=== PATIENT | female | born 1995 | race Caucasian/White ===

== ENCOUNTER 2018-04-09 12:43 | Emergency (ER) | payer MEDICAID, SELFPAY ==
[2018-04-09 12:52] VITALS: BP 132/81; PULSE 84; RESP 24; TEMP 37; O2SAT 100
--- NOTE | 2018-04-09 13:23 | ED.GENADUL_ITS ---
Disposition Clinical Impression: Suicidal ideations, Anxiety, Depression Disposition: [facility] Condition: Stable Medical Decision Making - Medical Decision Making 22-year-old female who presents with anxiety, depression and suicidal ideation. States she plans to take pills or cut her wrist. Previous suicide attempt in August 2017 but did not seek treatment. Patient states she was not followed by behavioral health. Case was discussed with care management who states that patient is followed by behavioral health and saw them yesterday and has a follow -up appointment next week. Patient is very tearful and appears anxious. Vitals within normal limits. No acute findings on exam. Will check screening labs, urinalysis, UDS and urine test. Will place order for sitter. Patient is voluntary. 1515 -- Pt is medically cleared. Mental health is here to see patient. 1600 --discussed with mental health and agree patient is appropriate for inpatient. Will attempt to call for placement. 1700 --discussed with mental health and information has been sent to [facility] and [facility] but there are no beds available tonight. Plan is for admission here overnight to resume attempt at placement tomorrow. 1755 --discussed with mental health - [facility] has a bed available. Will transfer patient there are tonight by [facility]. Patient is medically cleared, requiring no meds and no indication for ambulance transfer at this time. Accepting physician Dr. Chappell. History of Present Illness - General Chief complaint: PsychEval Stated complaint: PANIC ATTACK Time Seen by Provider: 04/09/18 12:46 Source: patient Mode of arrival: ambulatory Limitations: no limitations - History of Present Illness Initial comments: Patient is a 22-year-old female with a history of anxiety and depression who presents for panic attacks almost every day for the last few weeks and suicidal ideation for the past few days. Patient states she would take pills or slit her wrist to kill herself. Patient states she has not been seen by behavioral health for this. Patient states she saw her primary care doctor at [facility] and was prescribed BuSpar 2 weeks ago but she states is not working. Patient denies any alcohol or drug use. Patient denies any visual or auditory hallucinations. Patient admits to a previous suicide attempt in August 2017 in which she cut herself. She states she did not seek treatment at that time. - Related Data Albuterol Sulfate [Proair Hfa] 2 puff IH Q4H PRN #1 inhaler 08/29/16 Ondansetron [Zofran] 8 mg PO TID #6 tab-cap 07/03/16 SUMAtriptan [Imitrex] 1 tab PO ONCE #4 tab 04/26/17 Albuterol/Ipratropium [Duoneb Updraft] 3 ml IH Q3H PRN #1 box 08/09/17 Fluticasone Propionate [Flovent 220MCG] 2 puff IH BID #1 inh 08/12/17 Buspirone HCl 5 mg PO BID 30 Days #60 tab-cap 03/28/18 Hydroxyzine HCl 25 mg PO TID 14 Days #42 tab-cap 04/04/18 Allergies Allergy/AdvReac Type Severity Reaction Status Date / Time citalopram AdvReac insomnia Unverified 04/04/18 15:29 ultrasound gel Allergy Intermediate Itching Uncoded 03/30/18 22:23 Review of Systems Constitutional: denies: chills, fever Eyes: denies: eye pain ENT: denies: ear pain, dental pain Respiratory: denies: cough, shortness of breath Cardiovascular: denies: chest pain, dyspnea on exertion Gastrointestinal: denies: abdominal pain, nausea, vomiting Genitourinary: denies: urgency, dysuria, frequency Musculoskeletal: denies: back pain Skin: denies: rash, lesions Neurological: denies: headache, weakness, numbness Psychiatric: anxiety, depression, suicidal thoughts. denies: auditory hallucinations, visual hallucinations, homicidal thoughts Past Medical History - Past Medical History Medical history: asthma migraines Surgical history: no surgical history Psychiatric history: depression - Social History Smoking status: never smoker Alcohol use: none Drug use: none General Exam - General Limitations: no limitations General appearance: alert, in no apparent distress - Eye Eye exam: Present: PERRL, EOMI - ENT ENT exam: Present: normal orophraynx, mucous membranes moist - Respiratory Respiratory exam: Present: normal lung sounds bilaterally. Absent: respiratory distress, wheezes, rales, rhonchi, stridor - Cardiovascular Cardiovascular Exam: Present: regular rate, normal rhythm. Absent: bradycardia , tachycardia - GI/Abdominal GI/Abdominal exam: Present: soft, normal bowel sounds. Absent: distended, tenderness, guarding, rebound, rigid - Neurological Exam Neurological exam: Present: alert, oriented X3 - Psychiatric Psychiatric exam: Present: normal affect - Skin Skin exam: Present: warm, dry, intact Course Vital Signs - 24 hr 04/09/18 12:52 Temperature 98.6 F Pulse 84 Respiratory 24 Rate Blood Pressure 132/81 Pulse Oximetry 100
[2018-04-09 13:48] LABS: Absolute Basophil Count 0.06 k/cumm (0.0-0.2); Absolute Eosinophil Count 0.45 k/cumm (0.0-0.7); Absolute Lymphocyte Count 2.11 k/cumm (1.2-3.4); Absolute Monocyte Count 0.39 k/cumm (0.11-0.7); Absolute Neutrophil Count 3.39 k/cumm (1.2-6.7); Basophils % 0.9; HGB 13.4 g/dL (12.0-15.5); Mean Corp. HGB Concentration 33.5 g/dL (32.0-36.0); Mean Corpuscular Volume 86.6 fL (80-95); Monocytes % 6.1; Platelet Count 273 x1000/uL (130-400); RBC 4.62 m/cumm (4.00-5.20)
[2018-04-09 13:59] LABS: Anion Gap 11.2 mmol/L (3-11); BUN 9 mg/dL (7-18); CO2 24.8 mmol/L (21.0-32.0); CREATININE 0.71 mg/dL (0.55-1.02); Chloride 103 mmol/L (98-107); Glucose 86 mg/dL (70-100); Potassium 3.4 mmol/L (3.5-5.1); Sodium 139 mmol/L (136-145)
[2018-04-09 14:03] LABS: *AMPHETAMINES SCREEN URINE Negative (Negative); *BARBITURATES SCREEN URINE Negative (Negative); *BENZODIAZEPINES SCREEN URINE Negative (Negative); Cannabinoids THC Negative (Negative); Cocaine Screen,Urine Negative (Negative); METHADONE URINE SCREEN Negative (Negative); OPIATES URINE SCREEN Negative (Negative)
--- NOTE | 2018-04-09 14:04 | NUR.NOTE ---
Nursing Note: pt eating lunch. very soft spoken, has done everything asked.
[2018-04-09 14:09] LABS: ETHANOL BLOOD < 3.0 mg/dL (<3); Tricyclic Antidepressants Negative (Negative)
--- NOTE | 2018-04-09 15:24 | PDOC.ERCMPRO ---
Care Management Progress Note 04/09-Tanvi presents to the ED today for suicidal ideation. Tanvi has stated to Dr. Torres (please see provider note) that she want to take some pills or slit her wrists. Patient states she has slit her wrists before. Patient does tell Dr. Torres that she does not see a behavioral health specialist or therapist. Tanvi is a patient of [facility]. She does see the behavioral health specialist and Aki Pimentel had seen her yesterday. She also had seen Tamica Malin [facility] for three years when in high school. Patient is in paper clothes and no belongings in the room. She does have a licensed patient sitter. Patient is medically cleared and [facility] is here to meet with her. Will have huddle post [facility] evaluation.
--- NOTE | 2018-04-09 15:33 | CMPROGNOTE_ITS ---
Care Management Progress Note 04/09-Tanvi presents to the ED today for suicidal ideation. Tanvi has stated to Dr. Torres (please see provider note) that she want to take some pills or slit her wrists. Patient states she has slit her wrists before. Patient does tell Dr. Torres that she does not see a behavioral health specialist or therapist. Tanvi is a patient of [facility]. She does see the behavioral health specialist and Aki Pimentel had seen her yesterday. She also had seen Tamica Malin [facility] for three years when in high school. Patient is in paper clothes and no belongings in the room. She does have a licensed patient sitter. Patient is medically cleared and [facility] is here to meet with her. Will have huddle post [facility] evaluation.
--- NOTE | 2018-04-09 16:20 | PDOC.ERCMPRO ---
Care Management Progress Note 04/09-Rasheeda from [facility] has met with patient and states that patient is not safe to go home. Rasheeda is calling hospitals for bed availability. [facility] will continue to seek bed placement. Huddle in the ED. Present Rasheeda Sullivan [facility], Lupe Nursing Student Affairs Dean, and this CM. Lupe will call and set up patients sitters. CARE PLAN MJ HARTMAN 04/09/18 VOLUNTARY 1. Suicidal Precautions 2. Paper clothes 3. No personal belongings in the room 4. No phone 5. Visitors, boyfriend David, Mj?s mom and dad, and patient?s 2 year old daughter 6. Supervised bathroom privileges 7. Finger foods, may have metal spoon with nursing to account for post meals 8. Television if available 9. Patient to have licensed sitter, UBALDO, ADMITTING MANAGER core stacker. Patient is voluntary. If patient leaves, please call [facility] manager consumer insights Reel Cart Operator [phone], and [facility], [phone]. Any changes to this care plan, you must have a huddle and a new care plan must be written.
--- NOTE | 2018-04-09 16:30 | CMPROGNOTE_ITS ---
Care Management Progress Note 04/09-Rasheeda from [facility] has met with patient and states that patient is not safe to go home. Rasheeda is calling hospitals for bed availability. [facility] will continue to seek bed placement. Huddle in the ED. Present Rasheeda Sullivan [facility], Lupe Nursing Casino Games Dealer, and this CM. Lupe will call and set up patients sitters. CARE PLAN MJ HARTMAN 04/09/18 VOLUNTARY 1. Suicidal Precautions 2. Paper clothes 3. No personal belongings in the room 4. No phone 5. Visitors, boyfriend David, Mj s mom and dad, and patient s 2 year old daughter 6. Supervised bathroom privileges 7. Finger foods, may have metal spoon with nursing to account for post meals 8. Television if available 9. Patient to have licensed sitter, FRONT OFFICE DEVELOPER, SUPERVISOR DIE CASTING fill plant operator. Patient is voluntary. If patient leaves, please call [facility] production controller Assessment Clinician [phone], and [facility], [phone]. Any changes to this care plan, you must have a huddle and a new care plan must be written.
--- NOTE | 2018-04-09 16:54 | PDOC.MHCN ---
Date of Service: 04/09/18 Presenting Issue: *How did they arrive here at ER and why did they come: The client was brought in by her father due to what the patient describes as a panic attack. She states that she has recently been put on Buspirone, and feels like that is the reason her panic attacks have become unmanageable. Precipitating Factors: *Assessment of Safety SI/HI (address delusions if pertaining to the SI/HI) The patient reports that she has cut since the age of 13, but she tried to kill herself in July by cutting herself with a kitchen knife. She also reports that she attempted to overdose in June of last year but didn't succeed and did not seek medical attention for either occurrence. The patient reports that her panic attacks were manageable until about 3 weeks ago. She reports that she doesn't feel safe at home and that when she is anxious she may either cut or attempt suicide. She reports, even after calming down, that her thoughts are racing, her heart is racing, and that it is hard to breathe. Disposition: *Behavior:cooperative *Eye Contact:intermittent *Mood:depressed *Affect: congruent to mood *Appetite:good *Sleep (trouble falling/staying asleep):trouble falling asleep, but then stays asleep. Plan: The patient does not feel safe at home. She is willing to seek voluntary hospitalization. At this time due to history and current presentation, it would not be safe for the patient to return home.
[2018-04-09] MEDS: SUMAtriptan 25 MG TAB PO (18:25)
[2018-04-09 18:55] VITALS: BP 128/76; PULSE 72; RESP 16; TEMP 37; O2SAT 100
--- NOTE | 2018-04-09 19:02 | PDOC.ERCMPRO ---
Date of Service: 04/09/18 Time of Service: 19:02 Care Management Progress Note CM received page from ER in regards to Tanvi being accepted at [facility]. MARCUS spoke with Sheriff Matthieu, whom arranged for [facility] transport to [facility]. MARCUS spoke with the ER legal secretary receptionist again whom is aware of transport.
--- NOTE | 2018-04-09 19:03 | CMPROGNOTE_ITS ---
Date of Service: 04/09/18 Time of Service: 19:02 Care Management Progress Note CM received page from ER in regards to Tanvi being accepted at [facility]. MARCUS spoke with Sheriff Matthieu, whom arranged for [facility] transport to [place]. MARCUS spoke with the ER school secretary again whom is aware of transport.
[2018-04-09 19:32] LABS: Bilirubin Negative (Negative); Blood Negative (Negative); Clarity Clear; Glucose Negative (Negative); Ketones Negative (Negative); Leukocyte Esterase Negative (Negative); Nitrite Negative (Negative); Urobilinogen 0.2 EU/dL (Up TO 0.2); pH 6.5 (5-8)
== END 2018-04-09 19:05 | disposition short-term general hospital (02) ==
PROVIDERS: Emergency Provider Physician Assistant; PCP Family Medicine
DX: F41.8 Other specified anxiety disorders (principal); R45.851 Suicidal ideations
CPT/HCPCS: 36415; 80048; 80307; 81025; 99285; 80320; 81003; 85025; 99284

== ENCOUNTER 2018-04-25 00:12 | Emergency (ER) | payer MEDICAID, SELFPAY ==
[2018-04-25] VITALS (38 sets, daily range): BP systolic 83–101; BP diastolic 46–60; PULSE 41–64; RESP 8–20; TEMP 36.8–37.2; O2SAT 94–99
--- NOTE | 2018-04-25 00:39 | ED.GENADUL ---
Disposition Clinical Impression: Depression, Suicidal ideation, Intentional overdose of drug in tablet form Disposition: STILL A PATIENT Condition: Stable Medical Decision Making - Lab Data Results reviewed for labs ordered during visit: Yes - EKG Data -: EKG Interpreted by Me - Medical Decision Making Patient presenting with depression and suicidal ideation with report of overdosing on Vicodin 5 tablets somewhere around 11 PM. She is brought in by her sister. She is cooperative. She will not contract for safety at discharge. She feels that her depression is worse than it had been when she was released from psychiatric facility a week ago. Patient was placed into paper gown. One-to-one patient observation ordered. She is placed on the monitor and will need medical clearance with labs and EKG which are pending. Patient's EKG is sinus bradycardia at a rate of 46. There is an incomplete right bundle branch block present. There is no old to compare. CBC, CMP is unremarkable. Alcohol is negative. Aspirin negative. Tylenol just positive at 3. A repeat Tylenol level was done at the 4 hour fred and is negative. She is now medically cleared. She has been sleeping, calm and cooperative. She has had a sitter. She is medically cleared to be evaluated by mental health and they have been contacted. 7:30 AM - mental health has not been able to get in to see patient. Patient has been sleeping. Patient observer still present. Patient will be signed out to on-coming physician Dr. Carlos Domingo. History of Present Illness - General Chief complaint: OD/Poison Stated complaint: PSYCH CONSULT Time Seen by Provider: 04/25/18 00:39 Source: patient Mode of arrival: ambulatory Limitations: no limitations - History of Present Illness Initial comments: Patient presents to ED for evaluation of depression and suicidal ideation. She actually reports that she took her nighttime meds but in addition to that took 5 Vicodin with intent of self-harm. She also has been cutting her right leg with a razor and did that the previous day and was seen by her primary care then. She had a recent discharge from psychiatric facility for depression. Since then she has felt worse. She feels safe here but cannot contract for safety at home. She has no physical complaints of currently. She denies overdosing on any other medications. - Related Data Albuterol Sulfate [Proair Hfa] 2 puff IH Q4H PRN #1 inhaler 05/07/16 Ondansetron [Zofran] 8 mg PO TID #6 tab-cap 07/03/16 Albuterol/Ipratropium [Duoneb Updraft] 3 ml IH Q3H PRN #1 box 08/09/17 Fluticasone Propionate [Flovent 220MCG] 2 puff IH BID #1 inh 08/12/17 Fluoxetine HCl [Prozac] 20 mg PO DAILY tab-cap 04/16/18 Clonidine HCl 0.1 mg PO Q4H PRN 20 Days #60 tab-cap 04/21/18 SUMAtriptan [Imitrex] 1 tab PO ONCE #12 tab 04/21/18 Topiramate [Topamax] 25 mg PO BID #30 tab-cap 04/21/18 Trazodone HCl 50 mg PO HS tab-cap 04/21/18 Allergies Allergy/AdvReac Type Severity Reaction Status Date / Time citalopram AdvReac insomnia Unverified 04/25/18 00:28 ultrasound gel Allergy Intermediate Itching Uncoded 04/25/18 00:28 Review of Systems Constitutional: denies: chills, fever Eyes: denies: vision change ENT: denies: ear pain, congestion Respiratory: denies: cough, shortness of breath Cardiovascular: denies: chest pain Gastrointestinal: denies: abdominal pain, nausea, vomiting Genitourinary: denies: dysuria Musculoskeletal: denies: back pain, arthralgia Skin: other (Cutting). denies: rash Neurological: denies: headache, weakness, numbness Psychiatric: depression, suicidal thoughts Past Medical History - Past Medical History Medical history: asthma migraines Surgical history: no surgical history Psychiatric history: depression - Social History Smoking status: never smoker Alcohol use: none Drug use: none General Exam - General Limitations: no limitations General appearance: alert, in no apparent distress - Head Head exam: Present: atraumatic, normocephalic - Eye Eye exam: Present: normal apperance, PERRL. Absent: scleral icterus - Neck Neck exam: Present: normal inspection - Respiratory Respiratory exam: Present: normal lung sounds bilaterally - Cardiovascular Cardiovascular Exam: Present: regular rate, normal rhythm, normal heart sounds - GI/Abdominal GI/Abdominal exam: Present: soft. Absent: distended, tenderness - Extremities Exam Extremities exam: Present: normal inspection. Absent: tenderness - Neurological Exam Neurological exam: Present: alert, oriented X3, CN II-XII intact. Absent: motor sensory deficit - Psychiatric Psychiatric exam: Present: depressed, flat affect, suicidal ideation - Skin Skin exam: Present: other (Multiple superficial scratches and lacerations to the distal right lower extremity. None look infected. All are superficial and barely through dermis.) Course Vital Signs - 24 hr 04/25/18 04/25/18 00:23 00:29 Temperature 98.2 F Pulse 51 L Respiratory 16 12 Rate Blood Pressure 101/60 Pulse Oximetry 95
[2018-04-25 01:21] LABS: Abs Immature Grans 0.01 k/cumm (0.0-0.09); Absolute Basophil Count 0.03 k/cumm (0.0-0.2); Absolute Eosinophil Count 0.49 k/cumm (0.0-0.7); Absolute Lymphocyte Count 2.45 k/cumm (1.2-3.4); Absolute Monocyte Count 0.47 k/cumm (0.11-0.7); Absolute Neutrophil Count 3.04 k/cumm (1.2-6.7); Basophils % 0.5; Eosinophils % 7.6; HCT 36.8 % (36.0-46.0); HGB 12.4 g/dL (12.0-15.5); Immature Grans % 0.2; Lymphocytes % 37.8; Mean Corp. HGB Concentration 33.7 g/dL (32.0-36.0); Mean Corpuscular Hemoglobin 29.1 pg (27.0-33.0); Mean Corpuscular Volume 86.4 fL (80-95); Mean Platelet Volume 11.1 fL (8.0-11.0); Monocytes % 7.2; Neutrophils % 46.7; Platelet Count 235 x1000/uL (130-400); RBC 4.26 m/cumm (4.00-5.20); RBC Distribution Width 12.5 % (11.7-14.6); White Blood Cell Count 6.49 k/cumm (4.4-10.8)
[2018-04-25 01:35] LABS: ALT 30 U/L (12-78); AST 15 U/L (15-37); Alkaline Phosphatase 91 U/L (46-116); Anion Gap 7.8 mmol/L (3-11); BUN 14 mg/dL (7-18); Bilirubin, Total 0.5 mg/dL (0.2-1.0); CO2 28.2 mmol/L (21.0-32.0); CREATININE 0.86 mg/dL (0.55-1.02); Chloride 103 mmol/L (98-107); Glucose 87 mg/dL (70-100); Magnesium 1.9 mg/dL (1.8-2.4); Potassium 3.7 mmol/L (3.5-5.1); Sodium 139 mmol/L (136-145); Total Protein 7.8 g/dL (6.4-8.2)
[2018-04-25 01:47] LABS: ETHANOL BLOOD < 3.0 mg/dL (<3)
[2018-04-25 01:52] LABS: Bilirubin Negative (Negative); Blood Negative (Negative); Clarity Sl Cloudy; Glucose Negative (Negative); Ketones Negative (Negative); Leukocyte Esterase Small (Negative); Nitrite Positive (Negative); Specific Gravity 1.025 (1.005-1.025)
[2018-04-25] MEDS: Normal Saline 1,000 ML 150 ML IV (02:01)
[2018-04-25 02:14] LABS: *AMPHETAMINES SCREEN URINE Negative (Negative); *BARBITURATES SCREEN URINE Negative (Negative); *BENZODIAZEPINES SCREEN URINE Negative (Negative); Cannabinoids THC Negative (Negative); Cocaine Screen,Urine Negative (Negative); METHADONE URINE SCREEN Negative (Negative); OPIATES URINE SCREEN POSITIVE (Negative)
[2018-04-25 02:29] LABS: Bacteria Many HPF (Negative); C & S Indicated? No/Sq. Contamination; Casts Negative LPF (Negative); Crystals Negative HPF (Negative); Epithelial Cells Moderate HPF (Negative); Mucus Moderate (Negative); WBC >50 HPF (0-5)
[2018-04-25 02:30] LABS: Tricyclic Antidepressants Negative (Negative)
[2018-04-25 02:48] LABS: Acetaminophen 3 ug/mL (10-30); Salicylate < 2.8 mg/dL (2.8-20.0)
[2018-04-25 04:15] LABS: Acetaminophen < 2 ug/mL (10-30)
--- NOTE | 2018-04-25 04:59 | NUR.NOTE ---
Nursing Note: Mental health notified of patient's medical clearance. [facility] unable to come in until 0830 at least due to staff issues. Patient continues to be stable and cooperative, cadre at bedside.
--- NOTE | 2018-04-25 05:20 | PDOC.ERCMPRO ---
Date of Service: 04/25/18 Time of Service: 05:20 Care Management Progress Note CM contacted by the ED to place an interim safety plan while the patient is awaiting mental health evaluation. Mental health is unable to screen the patient until later in the morning. Tanvi is a 22 year old female awaiting a evaluation by mental health the following plan is an Interim safety plan while patient awaits mental health evaluation. Interim safety plan for CM. 1. Paper clothing and no personal belongings in the room. 2. Tanvi will have a License trained staff including RN, PROPELLANT CHARGE LOADER, SUPERVISOR RESPIRATORY observation at all times. 3. Visitors to be determined based on Tanvi?s behavior and level of engagement and at the discretion of MD, RN and MH. 4. Nourishment to be provided paper plates, cups and finger foods only, may have a spoon to be accounted for by staff post meal. 5. Follow the [facility] Management of the admitted behavioral health patient policy. 6. Comfort bath system only. 7. Tanvi will be escorted by license staff to and from the bathroom and when outside of the room. Plan: Tanvi will be evaluated by [facility] mental health crisis in the ED to determine next level of care and disposition. If any changes are needed in the Interim safety plan please contact the [facility] CM and MH crisis personal.
--- NOTE | 2018-04-25 05:43 | CMPROGNOTE_ITS ---
Date of Service: 04/25/18 Time of Service: 05:20 Care Management Progress Note CM contacted by the ED to place an interim safety plan while the patient is awaiting mental health evaluation. Mental health is unable to screen the patient until later in the morning. Tanvi is a 22 year old female awaiting a evaluation by mental health the following plan is an Interim safety plan while patient awaits mental health evaluation. Interim safety plan for CM. 1. Paper clothing and no personal belongings in the room. 2. Tanvi will have a License trained staff including RN, RETORT LOAD EXPEDITER, UTILITY PORTER observation at all times. 3. Visitors to be determined based on Tanvi s behavior and level of engagement and at the discretion of MD, RN and MH. 4. Nourishment to be provided paper plates, cups and finger foods only, may have a spoon to be accounted for by staff post meal. 5. Follow the [facility] Management of the admitted behavioral health patient policy. 6. Comfort bath system only. 7. Tanvi will be escorted by license staff to and from the bathroom and when outside of the room. Plan: Tanvi will be evaluated by [facility] mental health crisis in the ED to determine next level of care and disposition. If any changes are needed in the Interim safety plan please contact the [facility] CM and MH crisis personal.
--- NOTE | 2018-04-25 10:01 | ERMH_ITS ---
Presenting issue: [] *How did they arrive here at ER and why did they come: [Clt came in because she OD on father's OxyContin. ] Precipitating Factors: [] *Assessment of Safety SI / HI- (Address delusions if pertaining to the SI/ HI) [Clt had been dc'ed from psych unit on Saturday and met with his worker. Clt had stated that she felt better. As week progressed the clt began to have a reoccurrence of symptoms. I met with clt on , 04/24/18. Clt said that she was starting to have SI and admitted to cutting her leg. Clt has a hx of cutting so family was to secure all sharps. Clt entered into safety contract to inform mother before she took any action. Clt tried to OD on father's medication resulting in her being brought to the [facility] ED. ] Disposition: [] *Behavior: [cooperative] *Eye Contact: [intermittent] *Mood: [withdrawn] *Affect: [sad ] *Appetite: [normal] *Sleep (trouble falling/staying asleep): [Increased amount of sleep not wanting to get out of bed] Plan: (please elaborate and include that physician is consulted with plan and/ or placement): [Because the clt could not maintain her safety contract and admits that she doesn't feel safe that a voluntary admission to a psychiatric facility is warranted. The clt has stated that she will cooperate with facility staff once she arrives. ] Provisional Diagnosis:(only if required by physician): [] AXIS 5 Case Handover: Done with ED nurse (name): [] Date & Time [] Huddle: done with ED staff (for boarding clients): [] Yes [] No Date /Time [] Referral for Case management: Has phone call for introduction been made [] Yes [] No Referral in EMR: Done and sent? [] Yes [] NO Clinicians Name and title and Signature: [] Make sure that you are photocopying and submitting this to [facility] records dept.to be scanned into chart
--- NOTE | 2018-04-25 10:44 | ED.FU_ITS ---
Disposition Clinical Impression: Depression, Suicidal ideation, Intentional overdose of drug in tablet form, UTI (urinary tract infection) Disposition: [facility] Condition: Stable Medical Decision Making - Lab Data Laboratory Tests 04/25/18 04/25/18 04/25/18 01:08 01:08 01:08 WBC 6.49 RBC 4.26 Hgb 12.4 Hct 36.8 MCV 86.4 MCH 29.1 MCHC 33.7 RDW 12.5 Plt Count 235 MPV 11.1 H Immature Gran % 0.2 Neutrophils % 46.7 Lymphocytes % 37.8 Monocytes % 7.2 Eosinophils % 7.6 Basophils % 0.5 Absolute Neutrophils 3.04 Absolute Lymphocytes 2.45 Absolute Monocytes 0.47 Absolute Eosinophils 0.49 Absolute Basophils 0.03 Sodium 139 Potassium 3.7 Chloride 103 Carbon Dioxide 28.2 Anion Gap 7.8 BUN 14 Creatinine 0.86 Estimated GFR/1.73 m2 >= 60.00 Glucose 87 Calcium 9.0 Magnesium 1.9 Total Bilirubin 0.5 AST 15 ALT 30 Alkaline Phosphatase 91 Total Protein 7.8 Albumin 4.0 Urine Color Urine Clarity Urine pH Ur Specific [place] Urine Protein Urine Ketones Urine Blood Urine Nitrite Urine Bilirubin Urine Urobilinogen Ur Leukocyte Esterase Urine RBC Urine WBC Ur Epithelial Cells Urine Crystals Urine Bacteria Urine Casts Urine Mucus Ur Culture Indicated? Urine Glucose Salicylates < 2.8 L Urine Opiates Screen Urine Methadone Screen Acetaminophen 3 L Ur Barbiturates Screen Ur Tricyclics Screen Ur Amphetamines Screen U Benzodiazepines Scrn Urine Cocaine Screen Ur THC Screen Ethyl Alcohol < 3.0 04/25/18 04/25/18 04/25/18 01:40 01:40 03:15 WBC RBC Hgb Hct MCV MCH MCHC RDW Plt Count MPV Immature Gran % Neutrophils % Lymphocytes % Monocytes % Eosinophils % Basophils % Absolute Neutrophils Absolute Lymphocytes Absolute Monocytes Absolute Eosinophils Absolute Basophils Sodium Potassium Chloride Carbon Dioxide Anion Gap BUN Creatinine Estimated GFR/1.73 m2 Glucose Calcium Magnesium Total Bilirubin AST ALT Alkaline Phosphatase Total Protein Albumin Urine Color Yellow Urine Clarity Sl cloudy Urine pH 6.0 Ur Specific [place] 1.025 Urine Protein Negative Urine Ketones Negative Urine Blood Negative Urine Nitrite Positive H Urine Bilirubin Negative Urine Urobilinogen 1.0 H Ur Leukocyte Esterase Small H Urine RBC 3-5 H Urine WBC >50 Ur Epithelial Cells Moderate Urine Crystals Negative Urine Bacteria Many Urine Casts Negative Urine Mucus Moderate Ur Culture Indicated? No/sq. contamination Urine Glucose Negative Salicylates Urine Opiates Screen Positive Urine Methadone Screen Negative Acetaminophen < 2 L Ur Barbiturates Screen Negative Ur Tricyclics Screen Negative Ur Amphetamines Screen Negative U Benzodiazepines Scrn Negative Urine Cocaine Screen Negative Ur THC Screen Negative Ethyl Alcohol Results reviewed for labs ordered during visit: Yes - Medical Decision Making 800 --patient signed out by Dr. Gamino. Please see Dr. Gamino's note regarding initial ED presentation and course. Briefly, Tanvi is a 22-year-old with history of depression, here with acute worsening of depression with suicidality and attempted self-harm by taking 5 Vicodin tablets. 4 hour Tylenol level negative and LFTs normal. Patient is medically cleared per Dr. Gamino. Plan at sign out is to follow-up recommendations from mental health team regarding placement in a psychiatric treatment facility. 10:40 --Patient reassessed and has remained stable here in ED under 1:1 observation. Mental health treatment team confirms that [facility] will accept patient in transfer. Awaiting discussion with accepting physician. 11:30 -- Spoke with Dr. Adler at [facility] who will accept patient in transfer. -- I reviewed urinalysis: positive nitrite and leukouria. I spoke with patient and she notes increased urinary freq over the past few days. No dysuria, no hematuria, no discharge, no lesions. Will treat with keflex. Care Signed Out By:: Dr. Gamino - Vital Signs Recent Vitals - 8H: Vital Signs - 8 hr 04/25/18 04/25/18 04/25/18 02:50 03:00 03:01 Pulse 41 L Respiratory 9 L 8 L 9 L Rate Blood Pressure 83/47 Pulse Oximetry 95 95 95 04/25/18 04/25/18 04/25/18 03:10 03:20 03:30 Pulse Respiratory 11 L 10 L 11 L Rate Blood Pressure Pulse Oximetry 97 96 97 04/25/18 04/25/18 04/25/18 03:40 03:50 04:00 Pulse 43 L Respiratory 11 L 12 20 Rate Blood Pressure 96/50 Pulse Oximetry 97 97 96 04/25/18 04/25/18 04/25/18 04:01 04:10 04:20 Pulse Respiratory 11 L 12 10 L Rate Blood Pressure Pulse Oximetry 97 97 97 04/25/18 04/25/18 04/25/18 04:30 04:40 04:50 Pulse Respiratory 10 L 10 L 10 L Rate Blood Pressure Pulse Oximetry 96 95 95 - Continuation of Care Continuation of Care Plan: Follow-up on efforts being made by mental health team to transfer patient voluntarily to psychiatric treatment facility.
--- NOTE | 2018-04-25 11:33 | PDOC.ERCMPRO ---
Care Management Progress Note 04/25-Odalis from [facility] has notified this CM that [place] will take Tanvi today. Currently we are waiting on the doc to doc and nurse to nurse. This CM has notified IVY Erickson, for glycerin operator transport to [place]. Dr. Domingo, Carol nAn RN, and CHANELL Cantor, notified of the above.
--- NOTE | 2018-04-25 11:35 | CMPROGNOTE_ITS ---
Care Management Progress Note 04/25-Odalis from [facility] has notified this CM that [facility] will take Tanvi today. Currently we are waiting on the doc to doc and nurse to nurse. This CM has notified IVY Erickson, for rag washer transport to [facility]. Dr. Domingo, Carol Ann RN, and CHANELL Cantor, notified of the above.
[2018-04-25] MEDS: Cephalexin 500 MG CAP PO (12:09)
== END 2018-04-25 12:40 | disposition short-term general hospital (02) ==
PROVIDERS: Emergency Medicine; Emergency Provider Student in an Organized Health Care Education/Training Program; PCP Family Medicine
DX: T40.2X2A Poisoning by other opioids, intentional self-harm, initial encounter (principal); R45.851 Suicidal ideations; F32.9 Major depressive disorder, single episode, unspecified
CPT/HCPCS: 36415; 80053; 80307; 81025; 93005; 96360; 96361; 99285; 80320; 80329; 81003; 81015; 83735; 85025; 93010

== ENCOUNTER 2018-05-19 08:14 | Emergency (ER) | payer MEDICAID, SELFPAY ==
[2018-05-19 08:21] VITALS: BP 85/49; PULSE 62; RESP 16; TEMP 36.5; O2SAT 98
[2018-05-19] MEDS: Normal Saline 1,000 ML 1000 ML IV ×3 (08:40→11:05)
[2018-05-19 08:48] LABS: Absolute Basophil Count 0.04 k/cumm (0.0-0.2); Absolute Eosinophil Count 0.56 k/cumm (0.0-0.7); Absolute Lymphocyte Count 1.45 k/cumm (1.2-3.4); Absolute Monocyte Count 0.28 k/cumm (0.11-0.7); Absolute Neutrophil Count 2.56 k/cumm (1.2-6.7); Basophils % 0.8; Eosinophils % 11.5; HCT 36.3 % (36.0-46.0); Lymphocytes % 29.7; Mean Corp. HGB Concentration 33.1 g/dL (32.0-36.0); Mean Corpuscular Hemoglobin 28.9 pg (27.0-33.0); Mean Corpuscular Volume 87.5 fL (80-95); Monocytes % 5.7; Neutrophils % 52.3; Platelet Count 226 x1000/uL (130-400); RBC 4.15 m/cumm (4.00-5.20); RBC Distribution Width 12.7 % (11.7-14.6); White Blood Cell Count 4.89 k/cumm (4.4-10.8)
[2018-05-19 09:01] LABS: ALT 21 U/L (12-78); AST 15 U/L (15-37); Alkaline Phosphatase 87 U/L (46-116); Anion Gap 8.3 mmol/L (3-11); BUN 10 mg/dL (7-18); Bilirubin, Total 0.6 mg/dL (0.2-1.0); CO2 28.7 mmol/L (21.0-32.0); Calcium 8.8 mg/dL (8.5-10.1); Chloride 104 mmol/L (98-107); Glucose 92 mg/dL (70-100); Potassium 3.7 mmol/L (3.5-5.1); Sodium 141 mmol/L (136-145); Total Protein 7.8 g/dL (6.4-8.2)
[2018-05-19 10:08] LABS: Bilirubin Negative (Negative); Blood Negative (Negative); Clarity Sl Cloudy; Glucose Negative (Negative); Ketones Trace mg/dL (Negative); Leukocyte Esterase Trace (Negative); Nitrite Negative (Negative)
[2018-05-19 10:19] LABS: C & S Indicated? No/Sq. Contamination; Epithelial Cells Many HPF (Negative)
[2018-05-19 10:21] LABS: *AMPHETAMINES SCREEN URINE Negative (Negative); *BARBITURATES SCREEN URINE Negative (Negative); *BENZODIAZEPINES SCREEN URINE Negative (Negative); Cannabinoids THC Negative (Negative); Cocaine Screen,Urine Negative (Negative); METHADONE URINE SCREEN Negative (Negative); OPIATES URINE SCREEN Negative (Negative)
[2018-05-19 10:22] LABS: Tricyclic Antidepressants Negative (Negative)
[2018-05-19 11:01] VITALS: BP 90/51; BP 90/58; BP 91/45; PULSE 65; PULSE 66; PULSE 75
--- NOTE | 2018-05-19 12:25 | ED.GENADUL_ITS ---
Discharge Plan Disposition Patient Disposition: HOME Condition: Improving Discharge Details Chief Complaint: Dizzy/Sync Clinical Impression: Dizziness, Hypotension due to medication Reason For Visit: LAMBERTO Primary Care Provider: Eric Singer ED Provider: Aide Torres Home Meds and New Rx's Prescriptions: Continue albuterol sulfate [ProAir HFA] 8.5 GM HFA aerosol inhaler 2 puff Inhalation Q4H PRN Qty: 1 RF: 0 ondansetron HCl [Zofran] 8 MG tablet 8 mg PO TID Qty: 6 RF: 0 ipratropium-albuterol 3 ML solution for nebulization 3 ml Inhalation Q3H PRN Qty: 1 RF: 3 fluticasone [Flovent HFA] 120 PUFF HFA aerosol inhaler 2 puff Inhalation BID Qty: 1 RF: 2 trazodone 50 MG tablet 100 mg PO HS RF: 0 sumatriptan succinate [Imitrex] 25 MG tablet 1 tab PO ONCE Qty: 12 RF: 6 fluoxetine 20 MG capsule 40 mg PO DAILY 30 Days Qty: 60 RF: 1 magnesium hydroxide [Milk of Magnesia] 400 MG/5 ML suspension 30 ml PO PRN RF: 0 melatonin-pyridoxine HCl (B6) 1 EACH tablet 6 mg PO HS PRNRF: 0 risperidone [Risperdal] 1 MG tablet 1 mg PO TID RF: 0 Discontinued clonidine HCl 0.1 MG tablet 0.1 mg PO Q4H PRN 20 Days Qty: 60 RF: 0 Discharge Instructions Instructions: Clonidine (By mouth), Dizziness (ED) Additional Instructions: Stop taking your clonidine. Take the Xanax as needed and directed for a panic attack. You should receive a call from your psychiatric nurse practitioner regarding a follow-up appointment for further management of your anxiety and panic attacks. Drink plenty of fluids and get plenty of rest. Return to the emergency department any worsening or new concerning symptoms. Discharge Data Discharge Date/Time-TO BE ENTERED AT DEPARTURE: 05/19/18 14:08 Discharge Physician: Aide Torres Medical Decision Making MDM Narrative Medical decision making narrative: Patient is a 22-year-old female with a history of anxiety, depression, migraines and syncopal episodes who presents for a few blackout episodes this morning while at work at the [facility] [facility] where she works in [employer]. Patient states this is worse upon standing and describes it as everything going black and a lightheadedness. Patient denies any symptoms at present. She states she was admitted 1 month ago for anxiety started on clonidine. States she takes approximately 3 doses per week. States she last took it last night and last time for that was 5 days ago. She denies suicidal ideation, homicidal ideation, alcohol or drug use. She otherwise states she has been eating and drinking well without vomiting or diarrhea. She denies chest pain, shortness of breath, abdominal pain or urinary symptoms. Blood pressure on arrival 85/45. Patient received 1 bolus IV fluids and blood pressure recheck 91/45. Patient is noted to have a murmur on exam which she states she is aware of and has had a previous echocardiogram which is negative. No other acute findings on exam. No focal deficits. Suspect her symptoms are due to hypotension associated with the clonidine. 0828 --EKG notes a rate of 58, sinus bradycardia, right bundle branch block. There is a T-wave inversion in 3 and 3 which has been seen in previous but more pronounced today and now also in aVF. There is no acute ST elevation or depression. QRS 118. QTc 452. I suspect her symptoms and hypotension due to taking clonidine as this is new over the past month. We will place an IV, continue bolus of fluids, check labs and urinalysis to rule out any acute infection or electrolyte abnormality. 1100 --orthostatic vital signs negative. Patient still feels slightly dizzy upon standing. Will continue with a third bolus of fluids. 1230 --patient states she felt dizzy upon walking to the bathroom. Blood pressure 100/59 which is improving compared to BP on arrival. Will order patient a tray of food and p.o. fluids and reassess. 1300 --Labs reviewed and negative. UDS negative. Discussed with patient's psychiatric nurse Anna -she states patient called her discussing her medication clonidine. I discussed with Anna that I would recommend stopping the clonidine as I think this is contributing to her hypotension and dizziness. She will discuss with nurse practitioner Ashly Giang and the office will call patient for a follow-up appointment. Patient states she feels better. Patient about to eat now. I discussed with patient the plan of stopping the clonidine. We will send patient home with 1-2 tabs of Ativan to take with any further panic attacks. Patient is agreeable with this plan. 1345 --patient feels much better and is requesting to leave. Recheck blood pressure 112/69. Patient instructed to return to the ER with any concerns. She had admitted to her vision going black with her lightheadedness episodes this morning but otherwise denies blurry vision. Visual acuity was ordered but not charted prior to discharge. She was able to ambulate easily around room and demonstrated no difficulty with vision. Lab Data Lab Results 05/19/18 05/19/18 05/19/18 Range/Units 06:35 06:35 09:58 WBC 4.89 (4.4-10.8) k/cumm RBC 4.15 (4.00-5.20) m/cumm Hgb 12.0 (12.0-15.5) g/dL Hct 36.3 (36.0-46.0) % MCV 87.5 (80-95) fL MCH 28.9 (27.0-33.0) pg MCHC 33.1 (32.0-36.0) g/dL RDW 12.7 (11.7-14.6) % Plt Count 226 (130-400) x1000/uL MPV 11.0 (8.0-11.0) fL Immature Gran % 0.0 Neutrophils % 52.3 Lymphocytes % 29.7 Monocytes % 5.7 Eosinophils % 11.5 Basophils % 0.8 Absolute Neutrophils 2.56 (1.2-6.7) k/cumm Absolute Lymphocytes 1.45 (1.2-3.4) k/cumm Absolute Monocytes 0.28 (0.11-0.7) k/cumm Absolute Eosinophils 0.56 (0.0-0.7) k/cumm Absolute Basophils 0.04 (0.0-0.2) k/cumm Sodium 141 (136-145) mmol/L Potassium 3.7 (3.5-5.1) mmol/L Chloride 104 (98-107) mmol/L Carbon Dioxide 28.7 (21.0-32.0) mmol/L Anion Gap 8.3 (3-11) mmol/L BUN 10 (7-18) mg/dL Creatinine 0.90 (0.55-1.02) mg/dL Estimated GFR/1.73 m2 >= 60.00 (mL/min/1.73m2) Glucose 92 (70-100) mg/dL Calcium 8.8 (8.5-10.1) mg/dL Total Bilirubin 0.6 (0.2-1.0) mg/dL AST 15 (15-37) U/L ALT 21 (12-78) U/L Alkaline Phosphatase 87 (46-116) U/L Total Protein 7.8 (6.4-8.2) g/dL Albumin 4.0 (3.4-5.0) g/dL Urine Color Yellow (Yellow) Urine Clarity Sl cloudy Urine pH 7.0 (5-8) Ur Specific [place] 1.020 (1.005-1.025) Urine Protein Negative (Negative) mg/dL Urine Ketones Trace H (Negative) mg/dL Urine Blood Negative (Negative) Urine Nitrite Negative (Negative) Urine Bilirubin Negative (Negative) Urine Urobilinogen 4.0 H (Up TO 0.2) EU/dL Ur Leukocyte Esterase Trace H (Negative) Urine RBC Not Applicable Urine WBC Not Applicable Ur Epithelial Cells Many (Negative) HPF Urine Crystals Not Applicable Urine Bacteria Not Applicable Urine Mucus Not Applicable Ur Culture Indicated? No/sq. contamination Urine Glucose Negative (Negative) mg/dL Urine Opiates Screen (Negative) Urine Methadone Screen (Negative) Ur Barbiturates Screen (Negative) Ur Tricyclics Screen (Negative) Ur Amphetamines Screen (Negative) U Benzodiazepines Scrn (Negative) Urine Cocaine Screen (Negative) Ur THC Screen (Negative) 05/19/18 Range/Units 09:58 WBC (4.4-10.8) k/cumm RBC (4.00-5.20) m/cumm Hgb (12.0-15.5) g/dL Hct (36.0-46.0) % MCV (80-95) fL MCH (27.0-33.0) pg MCHC (32.0-36.0) g/dL RDW (11.7-14.6) % Plt Count (130-400) x1000/uL MPV (8.0-11.0) fL Immature Gran % Neutrophils % Lymphocytes % Monocytes % Eosinophils % Basophils % Absolute Neutrophils (1.2-6.7) k/cumm Absolute Lymphocytes (1.2-3.4) k/cumm Absolute Monocytes (0.11-0.7) k/cumm Absolute Eosinophils (0.0-0.7) k/cumm Absolute Basophils (0.0-0.2) k/cumm Sodium (136-145) mmol/L Potassium (3.5-5.1) mmol/L Chloride (98-107) mmol/L Carbon Dioxide (21.0-32.0) mmol/L Anion Gap (3-11) mmol/L BUN (7-18) mg/dL Creatinine (0.55-1.02) mg/dL Estimated GFR/1.73 m2 (mL/min/1.73m2) Glucose (70-100) mg/dL Calcium (8.5-10.1) mg/dL Total Bilirubin (0.2-1.0) mg/dL AST (15-37) U/L ALT (12-78) U/L Alkaline Phosphatase (46-116) U/L Total Protein (6.4-8.2) g/dL Albumin (3.4-5.0) g/dL Urine Color (Yellow) Urine Clarity Urine pH (5-8) Ur Specific [place] (1.005-1.025) Urine Protein (Negative) mg/dL Urine Ketones (Negative) mg/dL Urine Blood (Negative) Urine Nitrite (Negative) Urine Bilirubin (Negative) Urine Urobilinogen (Up TO 0.2) EU/dL Ur Leukocyte Esterase (Negative) Urine RBC Urine WBC Ur Epithelial Cells (Negative) HPF Urine Crystals Urine Bacteria Urine Mucus Ur Culture Indicated? Urine Glucose (Negative) mg/dL Urine Opiates Screen Negative (Negative) Urine Methadone Screen Negative (Negative) Ur Barbiturates Screen Negative (Negative) Ur Tricyclics Screen Negative (Negative) Ur Amphetamines Screen Negative (Negative) U Benzodiazepines Scrn Negative (Negative) Urine Cocaine Screen Negative (Negative) Ur THC Screen Negative (Negative) HPI - General Adult General Mode of arrival: EMS . Date/Time Provider Initiated Documentation: 05/19/18 08:15 . Limitations to Documentation: no limitations . Information obtained by: patient . HPI Narrative: Patient is a 22-year-old female with a history of asthma, migraine, anxiety, depression and syncopal episodes who presents to the ED with a complaint blackout episodes and feeling lightheaded since this morning. Patient states she was started on clonidine for her anxiety 1 month ago and has been taking it up to 3 times weekly. Patient states she last took it last night. She also took a dose of her Risperdal this morning. Patient states she last took clonidine before yesterday 5 days ago. Patient states she was started on the clonidine at [facility] 1 month ago for her panic attacks. Patient states she has taken Ativan in the past but this is not regularly prescribed for her. She admits to a mild bitemporal headache which is 4/10. She denies any blurry vision. Patient states she has otherwise been eating and drinking normally and denies any vomiting, diarrhea, fever, chest pain, shortness of breath or abdominal pain. Past medical history: Asthma, migraine, anxiety, depression, syncopal episodes Surgical history: Denies Social history: Rare alcohol, occasional marijuana, denies tobacco Medications: Trazodone, Risperdal, Imitrex, melatonin, milk of magnesia, clonidine, fluoxetine Allergies: Celexa PCP: [facility] internal medicine LMP: 2 years ago, has IUD Related Data Home Medications Medication Instructions Recorded Confirmed trazodone 100 mg PO HS tab-cap 04/21/18 05/19/18 magnesium hydroxide [Milk of 30 ml PO PRN ml 05/07/18 05/19/18 Magnesia] melatonin-pyridoxine HCl (B6) 6 mg PO HS PRN tab 05/07/18 05/19/18 risperidone [Risperdal] 1 mg PO TID tab-cap 05/09/18 05/19/18 Allergies Allergy/AdvReac Type Severity Reaction Status Date / Time citalopram AdvReac insomnia Unverified 05/19/18 13:54 ultrasound gel Allergy Intermediate Itching Uncoded 05/19/18 13:54 General Stated Complaint: Dizzy/Sync CONOR: 3 Review of Systems Review of Systems All systems reviewed & are unremarkable except as noted in HPI and below Constitutional Denies chills, Denies excessive sweating, Denies fatigue, Denies fever(s), Denies weakness and Denies weight loss Eyes Patient Reports system reviewed and no additional complaints, except as docu and Denies blurry vision ENT Denies vertigo, Reports dizziness, Denies otalgia, Denies nasal congestion, Denies sore throat and Denies throat swelling Cardiovascular Denies chest pain, Denies syncope, Denies rapid heart rate and Denies dyspnea Respiratory Denies dyspnea Gastrointestinal Denies abdominal pain, Denies diarrhea and Denies vomiting Genitourinary Denies hematuria, Denies dysuria and Denies flank pain Musculoskeletal Denies back pain and Denies joint swelling Integumentary/Breasts Denies lesions and Denies rash Neurologic Denies behavioral changes, Denies confusion, Denies vertigo, Reports dizziness, Denies syncope and Denies weakness Psychiatric Denies behavioral changes, Denies confusion and Denies depression Endocrine Denies excessive sweating and Denies fatigue Hematologic/Lymphatic Denies easy bruising and Denies lymphadenopathy Allergic/Immunologic Denies throat swelling PFSH Family History Mother Obstructive sleep apnea syndrome Father Esophageal stricture Sister Mental disorder Sister No problems noted. Brother No problems noted. Brother Asthma Medical History Allergic rhinitis Alopecia (capitis) totalis Asthma Atopic dermatitis Migraine Urinary tract infection Social History Smoking/Tobacco Use Status: Never Exam Const General: cooperative and healthy appearing Orientation: alert and awake HENMT Head: normal to inspection Ears: hearing grossly normal bilaterally, external ears normal and TM's normal bilaterally General nose exam: external nose normal Face and sinus: normal facial exam Mouth: mucous membranes dry Teeth and gingiva: dentition normal Throat: posterior oropharynx normal Eyes General: appearance normal, both eyes and all related structures Eyelids: eyelids normal Pupils: PERRL EOM: EOM intact bilaterally Neck Neck: normal visual inspection Lymphatic: no lymphadenopathy noted Chest Chest: normal inspection of the chest Resp Effort & Inspection: normal respiratory effort and able to speak in complete sentences Auscultation: clear to auscultation bilaterally Cardio Rate: regular rate Rhythm: regular rhythm GI Inspection: normal to inspection Palpation: soft, not firm, no guarding, no hepatosplenomegaly, no masses and nontender Auscultation: normal bowel sounds Back/Spine/Pelvis Back: no CVA tenderness Skin General skin exam: no rashes or lesions noted Neuro General: alert, awake and oriented x3 Cranial Nerves: CN's II-XI intact bilaterally Cognition: normal cognition Speech: speech normal Gait: normal gait Motor: muscle tone normal throughout and strength 5/5 throughout Sensory Exam: no sensory deficits noted Extrem General: normal to inspection, full ROM and normal capillary refill Psych Appearance: grossly normal Mental Status: mental status grossly normal Speech and Movement: speech and movement normal Affect: normal affect Thought Process: normal Course Vital Signs Temperature 97.7 F 05/19/18 08:21 Pulse 62 05/19/18 08:21 Respiratory Rate 16 05/19/18 08:21 Blood Pressure 85/49 L 05/19/18 08:21 Pulse Oximetry 98 05/19/18 08:21 Temperature 97.7 F 05/19/18 08:21 Pulse 66 05/19/18 11:01 Respiratory Rate 16 05/19/18 08:21 Blood Pressure 91/45 L 05/19/18 11:01 Pulse Oximetry 98 05/19/18 08:21 Lab/Test Results Lab/Test Results: Laboratory Tests 05/19/18 05/19/18 05/19/18 06:35 06:35 09:58 WBC 4.89 RBC 4.15 Hgb 12.0 Hct 36.3 MCV 87.5 MCH 28.9 MCHC 33.1 RDW 12.7 Plt Count 226 MPV 11.0 Immature Gran % 0.0 Neutrophils % 52.3 Lymphocytes % 29.7 Monocytes % 5.7 Eosinophils % 11.5 Basophils % 0.8 Absolute Neutrophils 2.56 Absolute Lymphocytes 1.45 Absolute Monocytes 0.28 Absolute Eosinophils 0.56 Absolute Basophils 0.04 Sodium 141 Potassium 3.7 Chloride 104 Carbon Dioxide 28.7 Anion Gap 8.3 BUN 10 Creatinine 0.90 Estimated GFR/1.73 m2 >= 60.00 Glucose 92 Calcium 8.8 Total Bilirubin 0.6 AST 15 ALT 21 Alkaline Phosphatase 87 Total Protein 7.8 Albumin 4.0 Urine Color Yellow Urine Clarity Sl cloudy Urine pH 7.0 Ur Specific [place] 1.020 Urine Protein Negative Urine Ketones Trace H Urine Blood Negative Urine Nitrite Negative Urine Bilirubin Negative Urine Urobilinogen 4.0 H Ur Leukocyte Esterase Trace H Urine RBC Not Applicable Urine WBC Not Applicable Ur Epithelial Cells Many Urine Crystals Not Applicable Urine Bacteria Not Applicable Urine Mucus Not Applicable Ur Culture Indicated? No/sq. contamination Urine Glucose Negative Urine Opiates Screen Urine Methadone Screen Ur Barbiturates Screen Ur Tricyclics Screen Ur Amphetamines Screen U Benzodiazepines Scrn Urine Cocaine Screen Ur THC Screen 05/19/18 09:58 WBC RBC Hgb Hct MCV MCH MCHC RDW Plt Count MPV Immature Gran % Neutrophils % Lymphocytes % Monocytes % Eosinophils % Basophils % Absolute Neutrophils Absolute Lymphocytes Absolute Monocytes Absolute Eosinophils Absolute Basophils Sodium Potassium Chloride Carbon Dioxide Anion Gap BUN Creatinine Estimated GFR/1.73 m2 Glucose Calcium Total Bilirubin AST ALT Alkaline Phosphatase Total Protein Albumin Urine Color Urine Clarity Urine pH Ur Specific [place] Urine Protein Urine Ketones Urine Blood Urine Nitrite Urine Bilirubin Urine Urobilinogen Ur Leukocyte Esterase Urine RBC Urine WBC Ur Epithelial Cells Urine Crystals Urine Bacteria Urine Mucus Ur Culture Indicated? Urine Glucose Urine Opiates Screen Negative Urine Methadone Screen Negative Ur Barbiturates Screen Negative Ur Tricyclics Screen Negative Ur Amphetamines Screen Negative U Benzodiazepines Scrn Negative Urine Cocaine Screen Negative Ur THC Screen Negative
[2018-05-19 12:46] VITALS: BP 100/59; PULSE 63; RESP 16; TEMP 36.8; O2SAT 96
--- NOTE | 2018-05-19 12:53 | NUR.NOTE ---
Nursing Note: per md, patient ok to have lunch. meal tray ordered.
[2018-05-19 13:47] VITALS: BP 112/67; PULSE 66; RESP 16; TEMP 37; O2SAT 98
[2018-05-19] MEDS: LORazepam 0.5 MG TAB PO (14:01)
[2018-05-19 14:07] VITALS: BP 112/67; PULSE 66; RESP 16; TEMP 37; O2SAT 98
== END 2018-05-19 14:08 | disposition home or self-care (01) ==
PROVIDERS: Emergency Provider Physician Assistant; PCP Family Medicine
DX: R42 Dizziness and giddiness (principal); I95.2 Hypotension due to drugs; T46.5X5A Adverse effect of other antihypertensive drugs, initial encounter
CPT/HCPCS: 36415; 80053; 80307; 81025; 93005; 96360; 96361; 99284; 81003; 81015; 85025; 93010; 99285

== ENCOUNTER 2018-05-25 17:15 | Emergency (ER) | payer MEDICAID, SELFPAY ==
[2018-05-25] VITALS (42 sets, daily range): BP systolic 76–104; BP diastolic 38–69; PULSE 62–85; RESP 14–20; TEMP 37.2; O2SAT 93–97
--- NOTE | 2018-05-25 18:07 | W.ED.GENAD ---
Discharge Plan Disposition Patient Disposition: HOME Condition: Improving Discharge Details Chief Complaint: Dizzy/Sync Clinical Impression: Near syncope Primary Care Provider: Eric Singer ED Provider: Jalen Raymond Home Meds and New Rx's Prescriptions: Continue fluoxetine 20 mg capsule 60 mg PO DAILY RF: 0 albuterol sulfate [ProAir HFA] 8.5 GM HFA aerosol inhaler 2 puff Inhalation Q4H PRN Qty: 1 RF: 0 ondansetron HCl [Zofran] 8 MG tablet 8 mg PO TID Qty: 6 RF: 0 ipratropium-albuterol 3 ML solution for nebulization 3 ml Inhalation Q3H PRN Qty: 1 RF: 3 fluticasone [Flovent HFA] 120 PUFF HFA aerosol inhaler 2 puff Inhalation BID Qty: 1 RF: 2 trazodone 50 MG tablet 100 mg PO HS RF: 0 sumatriptan succinate [Imitrex] 25 MG tablet 1 tab PO ONCE Qty: 12 RF: 6 magnesium hydroxide [Milk of Magnesia] 400 MG/5 ML suspension 30 ml PO PRN RF: 0 melatonin-pyridoxine HCl (B6) 1 EACH tablet 6 mg PO HS PRNRF: 0 risperidone [Risperdal] 1 MG tablet 1 mg PO TID RF: 0 Discharge Instructions Instructions: Near Syncope (ED) Additional Instructions: Home to rest today. 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 Return sooner for any acute concerns. Continue all of your regular medications We will ask our care management team to assist you in obtaining a follow-up in cardiology clinic. Discharge Data Discharge Date/Time-TO BE ENTERED AT DEPARTURE: 05/25/18 22:52 Medical Decision Making MDM Narrative Medical decision making narrative: Tanvi Scruggs is a 22 y/o woman with h/o asthma presenting to the emergency department with pre-syncopal symptoms while standing that improved with sitting but have not resolved completely. On exam Pt is well and non-toxic appearing with known cardiac murmur, and otherwise benign cardiopulmonary exam, benign neuro exam. Concern for orthostatic pre-syncope vs metabolic/lyte derangement vs PE vs arrhythmia vs other. 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 Plan for EKG, screening labs, iv, IVF hydration, telemetry. EKG okay. Labs are non-diagnostic with elevated d-dimer, will obtain CT chest. Pt reassessed, feeling better after fluids. Some orthostatic change in VS, will continue IVF. Pt signed out to Dr. Raymond with CT chest, reassessment pending. Plan for Pt to return in am for zio patch placement if d/belem to home tonight. Clinical Impression: pre-syncope Disposition: still a patient Medical Records Medical records reviewed: Yes I reviewed the patient's medical records. Lab Data Lab results reviewed: Yes I reviewed the patient's lab results. Laboratory Tests 05/25/18 05/25/18 05/25/18 18:30 18:30 18:30 WBC 6.33 RBC 3.93 L Hgb 11.2 L Hct 34.6 L MCV 88.0 MCH 28.5 MCHC 32.4 RDW 12.8 Plt Count 210 MPV 11.4 H Immature Gran % 0.2 Neutrophils % 45.1 Lymphocytes % 36.3 Monocytes % 7.1 Eosinophils % 10.7 Basophils % 0.6 Absolute Neutrophils 2.85 Absolute Lymphocytes 2.30 Absolute Monocytes 0.45 Absolute Eosinophils 0.68 Absolute Basophils 0.04 D-Dimer 1082 H Sodium 139 Potassium 3.6 Chloride 102 Carbon Dioxide 30.5 Anion Gap 6.5 BUN 12 Creatinine 0.77 Estimated GFR/1.73 m2 >= 60.00 Glucose 72 Calcium 8.8 Total Bilirubin 0.4 AST 15 ALT 27 Alkaline Phosphatase 89 Total Protein 7.6 Albumin 3.9 Urine Color Urine Clarity Urine pH Ur Specific [place] Urine Protein Urine Ketones Urine Blood Urine Nitrite Urine Bilirubin Urine Urobilinogen Ur Leukocyte Esterase Urine Glucose 05/25/18 18:40 WBC RBC Hgb Hct MCV MCH MCHC RDW Plt Count MPV Immature Gran % Neutrophils % Lymphocytes % Monocytes % Eosinophils % Basophils % Absolute Neutrophils Absolute Lymphocytes Absolute Monocytes Absolute Eosinophils Absolute Basophils D-Dimer Sodium Potassium Chloride Carbon Dioxide Anion Gap BUN Creatinine Estimated GFR/1.73 m2 Glucose Calcium Total Bilirubin AST ALT Alkaline Phosphatase Total Protein Albumin Urine Color Yellow Urine Clarity Clear Urine pH 6.0 Ur Specific [place] >= 1.030 H Urine Protein Negative Urine Ketones 15 H Urine Blood Negative Urine Nitrite Negative Urine Bilirubin Small H Urine Urobilinogen 2.0 H Ur Leukocyte Esterase Negative Urine Glucose Negative ECG Data Attestation: I personally reviewed and interpreted this ECG (s) as follows: Interpretation: EKG shows NSR at 65 with nl axis, inc RBBB, TWI III, aVF and V1-V3, present on prior. No STEMI, no WPW, no brugada, no long QT, no HOCM HPI - General Adult General Mode of arrival: ambulatory. Date/Time Provider Initiated Documentation: 05/25/18 17:57. Limitations to Documentation: no limitations. Information obtained by: patient, family, RN notes reviewed and old records reviewed. HPI Narrative: Tanvi Scruggs is a 22 y/o woman with h/oi asthma presenting to the emergency department for near syncope. 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 She sat down on the ground and gradually began to feel better, although she continues to feel lightheaded now. She also felt nauseated and sweaty, which have both resolved. No pain, no palpitations, no vomiting, no cough, no SOB, no recent illness, no recent travel. Pt had an echo in 2014 that was ordered for heart murmur and Pt reports was normal with no f/u recommended. She was seen here one week ago for similar pre-syncope symptoms and received IVF and was d/belem to home, there was some thought at that time that symptoms were due to starting clonidine, which she has since stopped. Prior to that episode, she has not had similar pre-syncopal symptoms. No h/o fainting, no LOC today. No fam hx of sudden . Pre-syncopal symptoms have not occurred during exertion. No vertigo. Related Data Home Medications Medication Instructions Recorded Confirmed albuterol sulfate [ProAir HFA] 2 puff INHALATION Q4H PRN #1 05/07/16 05/25/18 inhaler ondansetron HCl [Zofran] 8 mg PO TID #6 tab-cap 07/03/16 05/25/18 trazodone 100 mg PO HS tab-cap 04/21/18 05/25/18 magnesium hydroxide [Milk of 30 ml PO PRN ml 05/07/18 05/25/18 Magnesia] melatonin-pyridoxine HCl (B6) 6 mg PO HS PRN tab 05/07/18 05/25/18 risperidone [Risperdal] 1 mg PO TID tab-cap 05/09/18 05/25/18 fluoxetine 20 mg capsule 60 mg PO DAILY tab-cap 05/23/18 05/25/18 Previous Rx's Medication Instructions Recorded ipratropium-albuterol 3 ml INHALATION Q3H PRN #1 box 08/09/17 fluticasone [Flovent HFA] 2 puff INHALATION BID #1 inh 08/12/17 sumatriptan succinate [Imitrex] 1 tab PO ONCE #12 tab 04/21/18 Allergies Allergy/AdvReac Type Severity Reaction Status Date / Time citalopram AdvReac insomnia Unverified 05/25/18 18:36 ultrasound gel Allergy Intermediate Itching Uncoded 05/25/18 18:36 General Stated Complaint: Dizzy/Sync CONOR: 3 Review of Systems Review of Systems Constitutional: denies fevers Eyes: denies eye pain ENT: denies facial pain, dental pain, sore throat Cardiovascular: denies chest pain, edema, reports lightheadedness Respiratory: denies SOB, cough GI: denies abdominal pain, vomiting, diarrhea : denies flank pain MSK: denies back pain, neck pain, arthralgias, myalgias Skin: denies rash Neuro: denies headaches, weakness Exam Narrative Exam Narrative: Constitutional: well and [id number], pleasant, conversing normally HENT: head atraumatic, normocephalic normal inspection, mucous membranes moist Eyes: conjunctiva normal, sclera normal, pupils 3mm b/l Neck: no stridor, normal ROM, trachea midline Chest: normal inspection Resp: normal work of breathing, LCTAB Cardio: normal rate, normal rhythm, systolic murmur GI: abdomen soft, non-tender, non-distended Back: normal inspection, no rash Skin: warm, dry, normal color, no rash Neuro: alert, not altered, grossly non-focal, normal tone Ext: no edema Psych: normal mood, normal affect, normal behavior Course Vital Signs Temperature 37.2 C 05/25/18 17:47 Pulse 85 05/25/18 17:47 Respiratory Rate 16 05/25/18 17:47 Blood Pressure 84/51 L 05/25/18 17:47 Pulse Oximetry 96 05/25/18 17:47 Temperature 37.2 C 05/25/18 17:47 Pulse 85 05/25/18 17:47 Respiratory Rate 16 05/25/18 17:47 Blood Pressure 84/51 L 05/25/18 17:47 Pulse Oximetry 96 05/25/18 17:47
[2018-05-25] MEDS: Normal Saline Flush 10 ML SYR IVP (18:30)
[2018-05-25] MEDS: Normal Saline 1,000 ML 1000 ML IV ×2 (18:50→20:05)
[2018-05-25 19:06] LABS: Abs Immature Grans 0.01 k/cumm (0.0-0.09); Absolute Basophil Count 0.04 k/cumm (0.0-0.2); Absolute Eosinophil Count 0.68 k/cumm (0.0-0.7); Absolute Monocyte Count 0.45 k/cumm (0.11-0.7); Absolute Neutrophil Count 2.85 k/cumm (1.2-6.7); Basophils % 0.6; Eosinophils % 10.7; HCT 34.6 % (36.0-46.0); HGB 11.2 g/dL (12.0-15.5); Immature Grans % 0.2; Lymphocytes % 36.3; Mean Corp. HGB Concentration 32.4 g/dL (32.0-36.0); Mean Corpuscular Hemoglobin 28.5 pg (27.0-33.0); Mean Platelet Volume 11.4 fL (8.0-11.0); Monocytes % 7.1; Neutrophils % 45.1; Platelet Count 210 x1000/uL (130-400); RBC 3.93 m/cumm (4.00-5.20); RBC Distribution Width 12.8 % (11.7-14.6); White Blood Cell Count 6.33 k/cumm (4.4-10.8)
[2018-05-25 19:30] LABS: Bilirubin Small (Negative); Blood Negative (Negative); Clarity Clear; Glucose Negative (Negative); Ketones 15 mg/dL (Negative); Leukocyte Esterase Negative (Negative); Nitrite Negative (Negative); Specific Gravity >= 1.030 (1.005-1.025)
[2018-05-25 19:32] LABS: ALT 27 U/L (12-78); AST 15 U/L (15-37); Albumin 3.9 g/dL (3.4-5.0); Alkaline Phosphatase 89 U/L (46-116); Anion Gap 6.5 mmol/L (3-11); BUN 12 mg/dL (7-18); Bilirubin, Total 0.4 mg/dL (0.2-1.0); CO2 30.5 mmol/L (21.0-32.0); CREATININE 0.77 mg/dL (0.55-1.02); Calcium 8.8 mg/dL (8.5-10.1); Chloride 102 mmol/L (98-107); Glucose 72 mg/dL (70-100); Potassium 3.6 mmol/L (3.5-5.1); Sodium 139 mmol/L (136-145); Total Protein 7.6 g/dL (6.4-8.2)
[2018-05-25 19:40] LABS: D-Dimer 1082 ng/mlFEU (<500)
--- NOTE | 2018-05-25 20:16 | ED.GENADUL_ITS ---
Discharge Plan Disposition Patient Disposition: HOME Condition: Improving Discharge Details Chief Complaint: Dizzy/Sync Clinical Impression: Near syncope Primary Care Provider: Eric Singer ED Provider: Jalen Raymond Home Meds and New Rx's Prescriptions: Continue fluoxetine 20 mg capsule 60 mg PO DAILY RF: 0 albuterol sulfate [ProAir HFA] 8.5 GM HFA aerosol inhaler 2 puff Inhalation Q4H PRN Qty: 1 RF: 0 ondansetron HCl [Zofran] 8 MG tablet 8 mg PO TID Qty: 6 RF: 0 ipratropium-albuterol 3 ML solution for nebulization 3 ml Inhalation Q3H PRN Qty: 1 RF: 3 fluticasone [Flovent HFA] 120 PUFF HFA aerosol inhaler 2 puff Inhalation BID Qty: 1 RF: 2 trazodone 50 MG tablet 100 mg PO HS RF: 0 sumatriptan succinate [Imitrex] 25 MG tablet 1 tab PO ONCE Qty: 12 RF: 6 magnesium hydroxide [Milk of Magnesia] 400 MG/5 ML suspension 30 ml PO PRN RF: 0 melatonin-pyridoxine HCl (B6) 1 EACH tablet 6 mg PO HS PRNRF: 0 risperidone [Risperdal] 1 MG tablet 1 mg PO TID RF: 0 Discharge Instructions Instructions: Near Syncope (ED) Additional Instructions: Home to rest today. 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 Return sooner for any acute concerns. Continue all of your regular medications We will ask our care management team to assist you in obtaining a follow-up in cardiology clinic. Discharge Data Discharge Date/Time-TO BE ENTERED AT DEPARTURE: 05/25/18 22:52 Medical Decision Making MDM Narrative Medical decision making narrative: Tanvi Scruggs is a 22 y/o woman with h/o asthma presenting to the emergency department with pre-syncopal symptoms while standing that improved with sitting but have not resolved completely. On exam Pt is well and non-toxic appearing with known cardiac murmur, and otherwise benign cardiopulmonary exam, benign neuro exam. Concern for orthostatic pre- syncope vs metabolic/lyte derangement vs PE vs arrhythmia vs other. 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 Plan for EKG, screening labs, iv, IVF hydration, telemetry. EKG okay. Labs are non-diagnostic with elevated d-dimer, will obtain CT chest. Pt reassessed, feeling better after fluids. Some orthostatic change in VS, will continue IVF. Pt signed out to Dr. Raymond with CT chest, reassessment pending. Plan for Pt to return in am for zio patch placement if d/belem to home tonight. Clinical Impression: pre-syncope Disposition: still a patient Medical Records Medical records reviewed: Yes I reviewed the patient's medical records. Lab Data Lab results reviewed: Yes I reviewed the patient's lab results. Laboratory Tests 05/25/18 05/25/18 05/25/18 18:30 18:30 18:30 WBC 6.33 RBC 3.93 L Hgb 11.2 L Hct 34.6 L MCV 88.0 MCH 28.5 MCHC 32.4 RDW 12.8 Plt Count 210 MPV 11.4 H Immature Gran % 0.2 Neutrophils % 45.1 Lymphocytes % 36.3 Monocytes % 7.1 Eosinophils % 10.7 Basophils % 0.6 Absolute Neutrophils 2.85 Absolute Lymphocytes 2.30 Absolute Monocytes 0.45 Absolute Eosinophils 0.68 Absolute Basophils 0.04 D-Dimer 1082 H Sodium 139 Potassium 3.6 Chloride 102 Carbon Dioxide 30.5 Anion Gap 6.5 BUN 12 Creatinine 0.77 Estimated GFR/1.73 m2 >= 60.00 Glucose 72 Calcium 8.8 Total Bilirubin 0.4 AST 15 ALT 27 Alkaline Phosphatase 89 Total Protein 7.6 Albumin 3.9 Urine Color Urine Clarity Urine pH Ur Specific [place] Urine Protein Urine Ketones Urine Blood Urine Nitrite Urine Bilirubin Urine Urobilinogen Ur Leukocyte Esterase Urine Glucose 05/25/18 18:40 WBC RBC Hgb Hct MCV MCH MCHC RDW Plt Count MPV Immature Gran % Neutrophils % Lymphocytes % Monocytes % Eosinophils % Basophils % Absolute Neutrophils Absolute Lymphocytes Absolute Monocytes Absolute Eosinophils Absolute Basophils D-Dimer Sodium Potassium Chloride Carbon Dioxide Anion Gap BUN Creatinine Estimated GFR/1.73 m2 Glucose Calcium Total Bilirubin AST ALT Alkaline Phosphatase Total Protein Albumin Urine Color Yellow Urine Clarity Clear Urine pH 6.0 Ur Specific [place] >= 1.030 H Urine Protein Negative Urine Ketones 15 H Urine Blood Negative Urine Nitrite Negative Urine Bilirubin Small H Urine Urobilinogen 2.0 H Ur Leukocyte Esterase Negative Urine Glucose Negative ECG Data Attestation: I personally reviewed and interpreted this ECG (s) as follows: Interpretation: EKG shows NSR at 65 with nl axis, inc RBBB, TWI III, aVF and V1 -V3, present on prior. No STEMI, no WPW, no brugada, no long QT, no HOCM HPI - General Adult General Mode of arrival: ambulatory . Date/Time Provider Initiated Documentation: 05/25/18 17:57 . Limitations to Documentation: no limitations . Information obtained by: patient, family, RN notes reviewed and old records reviewed . HPI Narrative: Tanvi Scruggs is a 22 y/o woman with h/oi asthma presenting to the emergency department for near syncope. 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 She sat down on the ground and gradually began to feel better, although she continues to feel lightheaded now. She also felt nauseated and sweaty, which have both resolved. No pain, no palpitations, no vomiting, no cough, no SOB, no recent illness, no recent travel. Pt had an echo in 2014 that was ordered for heart murmur and Pt reports was normal with no f/u recommended. She was seen here one week ago for similar pre-syncope symptoms and received IVF and was d/belem to home, there was some thought at that time that symptoms were due to starting clonidine, which she has since stopped. Prior to that episode, she has not had similar pre-syncopal symptoms. No h/o fainting, no LOC today. No fam hx of sudden . Pre-syncopal symptoms have not occurred during exertion. No vertigo. Related Data Home Medications Medication Instructions Recorded Confirmed albuterol sulfate [ProAir HFA] 2 puff INHALATION Q4H PRN #1 05/07/16 05/25/18 inhaler ondansetron HCl [Zofran] 8 mg PO TID #6 tab-cap 07/03/16 05/25/18 trazodone 100 mg PO HS tab-cap 04/21/18 05/25/18 magnesium hydroxide [Milk of 30 ml PO PRN ml 05/07/18 05/25/18 Magnesia] melatonin-pyridoxine HCl (B6) 6 mg PO HS PRN tab 05/07/18 05/25/18 risperidone [Risperdal] 1 mg PO TID tab-cap 05/09/18 05/25/18 fluoxetine 20 mg capsule 60 mg PO DAILY tab-cap 05/23/18 05/25/18 Previous Rx's Medication Instructions Recorded ipratropium-albuterol 3 ml INHALATION Q3H PRN #1 box 08/09/17 fluticasone [Flovent HFA] 2 puff INHALATION BID #1 inh 08/12/17 sumatriptan succinate [Imitrex] 1 tab PO ONCE #12 tab 04/21/18 Allergies Allergy/AdvReac Type Severity Reaction Status Date / Time citalopram AdvReac insomnia Unverified 05/25/18 18:36 ultrasound gel Allergy Intermediate Itching Uncoded 05/25/18 18:36 General Stated Complaint: Dizzy/Sync CONOR: 3 Review of Systems Review of Systems Constitutional: denies fevers Eyes: denies eye pain ENT: denies facial pain, dental pain, sore throat Cardiovascular: denies chest pain, edema, reports lightheadedness Respiratory: denies SOB, cough GI: denies abdominal pain, vomiting, diarrhea : denies flank pain MSK: denies back pain, neck pain, arthralgias, myalgias Skin: denies rash Neuro: denies headaches, weakness Exam Narrative Exam Narrative: Constitutional: well and [id number], pleasant, conversing normally HENT: head atraumatic, normocephalic normal inspection, mucous membranes moist Eyes: conjunctiva normal, sclera normal, pupils 3mm b/l Neck: no stridor, normal ROM, trachea midline Chest: normal inspection Resp: normal work of breathing, LCTAB Cardio: normal rate, normal rhythm, systolic murmur GI: abdomen soft, non-tender, non-distended Back: normal inspection, no rash Skin: warm, dry, normal color, no rash Neuro: alert, not altered, grossly non-focal, normal tone Ext: no edema Psych: normal mood, normal affect, normal behavior Course Vital Signs Temperature 37.2 C 05/25/18 17:47 Pulse 85 05/25/18 17:47 Respiratory Rate 16 05/25/18 17:47 Blood Pressure 84/51 L 05/25/18 17:47 Pulse Oximetry 96 05/25/18 17:47 Temperature 37.2 C 05/25/18 17:47 Pulse 85 05/25/18 17:47 Respiratory Rate 16 05/25/18 17:47 Blood Pressure 84/51 L 05/25/18 17:47 Pulse Oximetry 96 05/25/18 17:47
--- NOTE | 2018-05-25 21:48 | DI.CT_ITS ---
SYMPTOMS/DIAGNOSIS: SYNCOPE, ELEVATED D DIMER PE CHEST CT: CT angiography was performed with multi slice acquisition and multi planar and 3D reconstruction. CT scan of the chest was performed according to the pulmonary embolus protocol. No priors. The thoracic aorta is of normal caliber. No aneurysm or dissection is seen. No evidence of a pulmonary embolus is present. The heart size is within normal limits. No pericardial effusion is seen. No findings of right ventricular dysfunction is present. No significant mediastinal, hilar or axillary adenopathy is present. No pleural effusion or pneumothorax is identified. There are areas of atelectasis in the lungs. No focal consolidating infiltrates are seen. The tracheobronchial tree is unremarkable. The lung volumes appear decreased. The bones are intact. IMPRESSION: No acute abnormality. No evidence of a pulmonary embolus, thoracic aortic dissection or aneurysm.
[2018-05-25] MEDS: Omnipaque 350 MG/ML 100 ML BTL IJ (21:50)
[2018-05-25] MEDS: SUMAtriptan 25 MG TAB PO (22:00)
--- NOTE | 2018-05-25 22:06 | DI.VRAD_ITS ---
EXAM: CT Angiography Chest With Intravenous Contrast EXAM DATE/TIME: 05/25/2018 9:17 PM CLINICAL HISTORY: 22 years old, female; Signs and symptoms; Other: Syncope; Patient HX: Syncope elevated d-dimer TECHNIQUE: Axial computed tomographic angiography images of the chest with intravenous contrast using CT angiography protocol. All CT scans at this facility use at least one of these dose optimization techniques: automated exposure control; mA and/or kV adjustment per patient size (includes targeted exams where dose is matched to clinical indication); or iterative reconstruction. Coronal and sagittal reformatted images were created and reviewed. MIP reconstructed images were created and reviewed. CONTRAST: 62 ml of omni 350 administered intravenously. COMPARISON: CR - CHEST 2 VIEWS PA,LAT 06/22/2016 4:20 AM FINDINGS: Pulmonary arteries: Normal. No pulmonary emboli. Aorta: Normal. No aortic aneurysm. No aortic dissection. Lungs: Lung volumes are slightly low. Scattered linear and groundglass opacities are consistent with areas of atelectasis. No focal airspace consolidation is seen. The central airways are clear. Pleural space: Normal. No pneumothorax. No pleural effusion. Heart: Normal. No cardiomegaly. No pericardial effusion. Bones/joints: Unremarkable. No acute fracture. Soft tissues: Unremarkable. Lymph nodes: Unremarkable. No enlarged lymph nodes. IMPRESSION: No evidence of pulmonary embolism or other acute cardiopulmonary abnormality. Dictated and Authenticated by: Ritesh Sandhu MD. Ordering:MIA RAYMOND MD
--- NOTE | 2018-05-26 09:40 | PDOC.ERCMPRO ---
Care Management Progress Note 05/26/18-Pt seen for dizzy/syncope on 05/25/[address] Nick kc. Pt had Zio patch placed and referral f/u request faxed to Cardiology.
== END 2018-05-25 22:52 | disposition home or self-care (01) ==
PROVIDERS: Student in an Organized Health Care Education/Training Program; Emergency Provider Emergency Medicine; PCP Family Medicine
DX: R55 Syncope and collapse (principal); R11.0 Nausea; R79.1 Abnormal coagulation profile
CPT/HCPCS: 36415; 71275; 80053; 81025; 93005; 96360; 96361; 99285; 81003; 85025; 85379; 93010; J3490

== ENCOUNTER 2018-05-26 09:54 | Outpatient (CLI) | payer MEDICAID, SELFPAY ==
--- NOTE | 2018-06-27 07:13 | ZIOP_ITS ---
ZIO Patch INTERPRETATION DATE OF DICTATION June 26, 2018 Analysis time 13 days and 19 hours INDICATION - Syncope. Predominant underlying rhythm is sinus rhythm. Average heart rate 70 beats per minute. Minimum heart rate 42 beats per minute. Maximum heart rate 155 beats per minute. Rare isolated atrial ectopy. Rare isolated ventricular ectopy. No significant atrial arrhythmias. No nonsustained VT. No significant pauses or sydni arrhythmias. 5 patient triggered events correspond to sinus rhythm and sinus tachycardia. No diary entries. Brendon Downey M.D. JULI/chana T - 06/27/2018
== END 2018-05-26 10:14 ==
PROVIDERS: PCP Family Medicine; Visit Provider Family Medicine
DX: R55 Syncope and collapse (principal)
CPT/HCPCS: 93225

== ENCOUNTER 2018-05-27 17:56 | Observation (INO) | payer MEDICAID, SELFPAY ==
[2018-05-27 17:59] VITALS: BP 97/67; PULSE 73; RESP 16; TEMP 36.7; O2SAT 96
--- NOTE | 2018-05-27 18:25 | ED.GENADUL_ITS ---
Discharge Plan Disposition Patient Disposition: [facility] INPATIENT Condition: Stable Discharge Details Chief Complaint: PsychEval Clinical Impression: Suicidal ideation, Depressed Primary Care Provider: Eric Singer ED Provider: Zhen Lopez Home Meds and New Rx's Prescriptions: No Action fluoxetine 20 mg capsule 60 mg PO DAILY RF: 0 albuterol sulfate [ProAir HFA] 8.5 GM HFA aerosol inhaler 2 puff Inhalation Q4H PRN Qty: 1 RF: 0 ondansetron HCl [Zofran] 8 MG tablet 8 mg PO TID Qty: 6 RF: 0 ipratropium-albuterol 3 ML solution for nebulization 3 ml Inhalation Q3H PRN Qty: 1 RF: 3 fluticasone [Flovent HFA] 120 PUFF HFA aerosol inhaler 2 puff Inhalation BID Qty: 1 RF: 2 trazodone 50 MG tablet 100 mg PO HS RF: 0 sumatriptan succinate [Imitrex] 25 MG tablet 1 tab PO ONCE Qty: 12 RF: 6 magnesium hydroxide [Milk of Magnesia] 400 MG/5 ML suspension 30 ml PO PRN RF: 0 melatonin-pyridoxine HCl (B6) 1 EACH tablet 6 mg PO HS PRNRF: 0 risperidone [Risperdal] 1 MG tablet 1 mg PO TID RF: 0 Medical Decision Making MDM Narrative Medical decision making narrative: Patient presenting to the emergency department for chief complaint of suicidal ideations with plan to overdose on pills. Patient states that she has not taken any actions to harm herself but has struggled with depression for a while and recently been admitted to [place] and they did nothing for me except have me watch [employer] videos on meditation . Patient states that she has been taking her normal psychiatric medications and saw her counselor today and had expressed some of these feelings to them but she thought she would be able to follow through a safety plan but when she got home after appointment and waited a while she felt worse. Physical exam is unremarkable and doubt any medical source for her chief complaint. Patient denies any current medical complaints pain or discomfort at this time. Plan to check normal psychiatric labs given the patient is tearful with plan and suicidality I feel that there may be a significant possibility of patient needing admission for her ongoing depression and suicidality. Patient is here voluntarily and otherwise stable but given her chief complaint patient sitter was ordered to make sure patient remains safe throughout emergency department stay. Review of labs is unremarkable and patient is medically clear. Of notation is that patient does have ZOI patch in place for multiple visits with reported syncope but patient is otherwise been stable and able to be discharged so I do not feel that this would complicate any psychiatric admission for suicidal ideations as this is more of an outpatient monitor. Patient had acute psychiatric assessment and they agree with patient's condition requiring inpatient admission for suicidal ideations. Patient is agreeable to this plan and has had issues during her emergency department stay. Bowling Pin Setters Installer stated that there were no beds available this evening for admission and that there were potential availabilities tomorrow morning. residential treatment staff did inform me of patient's slightly low blood pressure which I feel may be due to patient's small size and that she was sleeping. After orally hydrate patient and continue to observe. Called and spoke with Dr. Vu in regards to patient's condition and need for inpatient observation pending bed availability. He agreed to have patient admitted and stated he would, and evaluate the patient. HPI - General Adult General Mode of arrival: ambulatory . Date/Time Provider Initiated Documentation: 05/27/18 18:08 . Limitations to Documentation: no limitations . Information obtained by: patient . History of Present Illness 22 year old F presents to the emergency department with the chief complaint of Suicidal ideation, described as severe, Patient started experiencing this hour(s) (4) and it has been constant. No relieving factors improve symptom(s ), No exacerbating factors reported . Patient notes no other symptoms.. Patient did receive the following treatments prior to arrival, none Related Data Home Medications Medication Instructions Recorded Confirmed albuterol sulfate [ProAir HFA] 2 puff INHALATION Q4H PRN #1 05/07/16 05/27/18 inhaler ondansetron HCl [Zofran] 8 mg PO TID #6 tab-cap 07/03/16 05/27/18 trazodone 100 mg PO HS tab-cap 04/21/18 05/27/18 magnesium hydroxide [Milk of 30 ml PO PRN ml 05/07/18 05/27/18 Magnesia] melatonin-pyridoxine HCl (B6) 6 mg PO HS PRN tab 05/07/18 05/27/18 risperidone [Risperdal] 1 mg PO TID tab-cap 05/09/18 05/27/18 fluoxetine 20 mg capsule 60 mg PO DAILY tab-cap 05/23/18 05/27/18 Previous Rx's Medication Instructions Recorded ipratropium-albuterol 3 ml INHALATION Q3H PRN #1 box 08/09/17 fluticasone [Flovent HFA] 2 puff INHALATION BID #1 inh 08/12/17 sumatriptan succinate [Imitrex] 1 tab PO ONCE #12 tab 04/21/18 Allergies Allergy/AdvReac Type Severity Reaction Status Date / Time citalopram AdvReac insomnia Unverified 05/27/18 18:06 ultrasound gel Allergy Intermediate Itching Uncoded 05/27/18 18:06 General Stated Complaint: PsychEval CONOR: 2 Review of Systems Constitutional Denies body ache(s), Denies chills, Denies fever(s), Denies weight gain and Denies weight loss Eyes Patient Denies change in vision ENT Denies sore throat and Denies throat swelling Cardiovascular Denies chest pain and Denies dyspnea Respiratory Denies dyspnea Gastrointestinal Denies abdominal pain, Denies diarrhea, Denies nausea and Denies vomiting Genitourinary Denies dysuria Psychiatric Reports as per HPI Endocrine Denies cold intolerance and Denies heat intolerance Hematologic/Lymphatic Denies easy bleeding and Denies easy bruising Allergic/Immunologic Denies throat swelling Exam Const General: cooperative Orientation: alert, awake and oriented x3 Limitations: mental status not altered HENCO Head: normal to inspection, normocephalic and atraumatic Ears: hearing grossly normal bilaterally Mouth: moist mucous membranes Eyes General: appearance normal, both eyes and all related structures Pupils: PERRL EOM: EOM intact bilaterally Neck Thyroid: thyroid normal Resp Effort & Inspection: normal respiratory effort, able to speak in complete sentences and no respiratory distress Auscultation: clear to auscultation bilaterally Cardio Rate: regular rate and not tachycardic Rhythm: regular rhythm Heart Sounds: S1 normal, S2 normal, no click, no gallops, no murmurs and no rubs Neuro General: alert, awake, oriented x3, gait normal, moves all extremities and no focal motor deficits Cognition: normal cognition Speech: speech normal Psych Speech and Movement: speech and movement normal and speech clear Affect: sad Attitude: cooperative Thought Process: normal Thought Content: normal and suicidality Course Vital Signs Temperature 36.7 C 05/27/18 17:59 Pulse 73 05/27/18 17:59 Respiratory Rate 16 05/27/18 17:59 Blood Pressure 97/67 L 05/27/18 17:59 Pulse Oximetry 96 05/27/18 17:59 Temperature 36.7 C 05/27/18 17:59 Pulse 73 05/27/18 17:59 Respiratory Rate 16 05/27/18 17:59 Blood Pressure 97/67 L 05/27/18 17:59 Pulse Oximetry 96 05/27/18 17:59
[2018-05-27 18:35] LABS: Absolute Basophil Count 0.06 k/cumm (0.0-0.2); Absolute Eosinophil Count 0.46 k/cumm (0.0-0.7); Absolute Lymphocyte Count 2.06 k/cumm (1.2-3.4); Absolute Neutrophil Count 3.12 k/cumm (1.2-6.7); Eosinophils % 7.5; HCT 34.8 % (36.0-46.0); HGB 11.4 g/dL (12.0-15.5); Lymphocytes % 33.8; Mean Corp. HGB Concentration 32.8 g/dL (32.0-36.0); Mean Corpuscular Hemoglobin 28.5 pg (27.0-33.0); Mean Platelet Volume 11.1 fL (8.0-11.0); Monocytes % 6.6; Neutrophils % 51.1; Platelet Count 223 x1000/uL (130-400); RBC Distribution Width 12.9 % (11.7-14.6)
[2018-05-27 18:55] LABS: Salicylate < 2.8 mg/dL (2.8-20.0)
[2018-05-27 18:56] LABS: Acetaminophen < 2 ug/mL (10-30)
[2018-05-27 19:01] LABS: ALT 29 U/L (12-78); AST 16 U/L (15-37); Albumin 4.2 g/dL (3.4-5.0); Alkaline Phosphatase 91 U/L (46-116); BUN 10 mg/dL (7-18); Bilirubin, Total 0.5 mg/dL (0.2-1.0); CREATININE 0.98 mg/dL (0.55-1.02); Chloride 103 mmol/L (98-107); Glucose 94 mg/dL (70-100); Potassium 3.6 mmol/L (3.5-5.1); Sodium 139 mmol/L (136-145); TSH 1.26 uIU/mL (0.358-3.74); Total Protein 7.8 g/dL (6.4-8.2)
[2018-05-27 19:13] LABS: Bilirubin Negative (Negative); Blood Negative (Negative); Clarity Clear; Glucose Negative (Negative); Ketones Trace mg/dL (Negative); Leukocyte Esterase Negative (Negative); Nitrite Negative (Negative); Specific Gravity >= 1.030 (1.005-1.025); pH 6.5 (5-8)
[2018-05-27 19:31] LABS: *AMPHETAMINES SCREEN URINE Negative (Negative); *BARBITURATES SCREEN URINE Negative (Negative); *BENZODIAZEPINES SCREEN URINE Negative (Negative); Cannabinoids THC Negative (Negative); Cocaine Screen,Urine Negative (Negative); METHADONE URINE SCREEN Negative (Negative); OPIATES URINE SCREEN Negative (Negative)
[2018-05-27 19:33] LABS: Tricyclic Antidepressants Negative (Negative)
[2018-05-27 19:47] LABS: ETHANOL BLOOD < 3.0 mg/dL (<3)
--- NOTE | 2018-05-27 20:48 | PDOC.MHCN ---
Presenting Issue: *How did they arrive here at ER and why did they come: Patient present at ER for active suicidal ideation with a plan. Precipitating Factors: *Assessment of Safety SI/HI (address delusions if pertaining to the SI/HI) Patient reports struggling with depression and anxiety since the age of 13. Over the last few months, her depression has worsened to the point of requiring 2 separate psychiatric hospitalizations in April of 2018. Patient states that since her return home from [facility], she has once again become increasingly more depressed and has been struggling with suicidal ideation over the past few days. She is unable or unwilling to identify a trigger for the worsening of her mood. Disposition: *Behavior: Cooperative. *Eye Contact: Good. *Mood: Depressed. *Affect: Flat. *Appetite: Good. *Sleep (trouble falling/staying asleep): Reports poor sleep - difficulty falling asleep and staying asleep. Plan: Plan is to seek a voluntary hospitalization as patient is unable to contract for safety. There are no available psychiatric beds this evening. Patient will, therefore, remain at [facility] for the night and [facility] will resume the search for a bed in the morning. A huddle is done with hospital staff and a care plan is created.
--- NOTE | 2018-05-27 20:51 | PDOC.MHCN_ITS ---
Presenting Issue: *How did they arrive here at ER and why did they come: Patient present at ER for active suicidal ideation with a plan. Precipitating Factors: *Assessment of Safety SI/HI (address delusions if pertaining to the SI/HI) Patient reports struggling with depression and anxiety since the age of 13. Over the last few months, her depression has worsened to the point of requiring 2 separate psychiatric hospitalizations in April of 2018. Patient states that since her return home from [facility], she has once again become increasingly more depressed and has been struggling with suicidal ideation over the past few days. She is unable or unwilling to identify a trigger for the worsening of her mood. Disposition: *Behavior: Cooperative. *Eye Contact: Good. *Mood: Depressed. *Affect: Flat. *Appetite: Good. *Sleep (trouble falling/staying asleep): Reports poor sleep - difficulty falling asleep and staying asleep. Plan: Plan is to seek a voluntary hospitalization as patient is unable to contract for safety. There are no available psychiatric beds this evening. Patient will , therefore, remain at [facility] for the night and [facility] will resume the search for a bed in the morning. A huddle is done with hospital staff and a care plan is created.
[2018-05-27 21:58] VITALS: BP 88/55; PULSE 59; RESP 18; TEMP 36.8; O2SAT 96
[2018-05-27 22:02] VITALS: BP 100/63; RESP 18; TEMP 36.8; O2SAT 99
--- NOTE | 2018-05-27 22:19 | PDOC.ERCMPRO ---
- If Service Date Differs Date of service: 05/27/18 Time of Service: 22:19 Care Management Progress Note Background: Per report at the time of the huddle with providers and CM completed chart review. [facility]vi [facility] then to [place] on 04/25/18. Tanvi has a history of depression and does have services through [facility]. Tanvi did express to [facility] and [facility] prior to CM arrival that she did not feel safe alone at home and that she was having SI. Per report Tanvi did meet with her therapist at [facility] today and engaged in a safety plan. However once she returned home from her appointment she continued to have feelings of SI. Tanvi had reported she planned to over dose on medication. Tanvi has had two recent admissions to psychiatric facilities for stabilization in the past two months. Tanvi does have a ZIO patch in place for recent syncopal episodes. The monitor was placed on 05/26/18 and will remain for two weeks. Of note Tanvi resides with her parents, and her three siblings and she does have a two year old daughter at home. Tanvi is VOLUNTARY FOR INPATIENT PSYCHIATRIC STABILIZATION. Current behaviors: Tanvi arrived to the ED SI per report by [facility] and ED provider. CM attempted to engage the patient in conversation and have her participate in creation of the safety plan and risk assessment. Tanvi remained with blanket over her head and eyes closed. After several attempts to engage Tanvi in conversation CM let her rest. CM did review plan out loud to Tanvi although she did not respond. Huddle Participants: YASIR Mcnamara CM, Lorraine, [facility], YASIR Nevarez Brainer, KEENA Jimenez ED, YASIR Barnhart primary Time and Date: 05/27/18 at 2130 Safety plan has been established with care team, to adhere to patient goals, identify restrictions based on behavioral status, address nutrition, and determine allowed personal belongings, tools for hygiene and personal care. Determine level of activity including ambulation, level of supervision, visitors, and determine privileges based on behaviors and level of engagement by pt. SAFETY PLAN: C.M Room 9 1. Will remain on suicide precautions and in paper clothes. 2. Will remain in room under direct supervision of one on one CPSO trained, UBALDO, CECE adjunct faculty instructor. Tanvi will be supervised while ambulating to and from the shower or bathroom, by trained one on one staff. 3. May have paper cups, plates, finger foods as well as a metal spoon with which to eat meals. [facility] staff will be responsible for accounting of utensils after meals. 4. Follow [facility] Management of the Admitted Behavioral Health Patient policy. 5. Tanvi may shower with qualified staff outside the door. 6. Tanvi may have her cell phone at the discretion of direct care providers. Cords will remain outside the room and the phone may be charged at the nurse?s station. 7. No visitors currently. 8.Tanvi may have television and the remote in the room once a television is available. She may have activities that include a book, magazine, coloring book, paper and crayons. [facility] will be coordinating placement at inpatient facility, last updates included the following: [place] and [facility] anticipate they will have bed availability tomorrow. [facility] crisis Enriqueta will contact in the morning to review availability of beds and scheduled huddle time after she meets with the patient. Tanvi will be admitted to the Medical surgical unit per nursing plating and point assembly supervisor. She will have one on one throughout the night. Patient is currently voluntarily at [facility] and seeking inpatient admission when a bed becomes available. [facility] Frontline Medical Assistant Ob Gyn will continue seeking placement. Please contact the Dieing Out Machine Operator Grocery Buyer ([phone]) and [facility] Medical Assistant Ob Gyn ([phone]) for any needed changes in the Safety Plan. Safety plan has been provided to interdepartmental care team including Clinical Coordinator, Nursing Brainer.
--- NOTE | 2018-05-27 22:24 | CMPROGNOTE_ITS ---
- If Service Date Differs Date of service: 05/27/18 Time of Service: 22:19 Care Management Progress Note Background: Per report at the time of the huddle with providers and CM completed chart review. Tanvi was transferred to [facility] on 04/09/18 then to [place] on 04/25/18. Tanvi has a history of depression and does have services through [facility]. Tanvi did express to [facility] and [facility] prior to CM arrival that she did not feel safe alone at home and that she was having SI. Per report Tanvi did meet with her therapist at [facility] today and engaged in a safety plan. However once she returned home from her appointment she continued to have feelings of SI. Tanvi had reported she planned to over dose on medication. Tanvi has had two recent admissions to psychiatric facilities for stabilization in the past two months. Tanvi does have a ZIO patch in place for recent syncopal episodes. The monitor was placed on 05/26/18 and will remain for two weeks. Of note Tanvi resides with her parents, and her three siblings and she does have a two year old daughter at home. Tanvi is VOLUNTARY FOR INPATIENT PSYCHIATRIC STABILIZATION. Current behaviors : Tanvi arrived to the ED SI per report by [facility] and ED provider. CM attempted to engage the patient in conversation and have her participate in creation of the safety plan and risk assessment. Tanvi remained with blanket over her head and eyes closed. After several attempts to engage Tanvi in conversation CM let her rest. CM did review plan out loud to Tanvi although she did not respond. Huddle Participants: YASIR Mcnamara CM, Lorraine, [facility], YASIR Nevarez Blender Helper , KEENA Jimenez ED, YASIR Barnhart primary Time and Date: 05/27/18 at 2130 Safety plan has been established with care team, to adhere to patient goals, identify restrictions based on behavioral status, address nutrition, and determine allowed personal belongings, tools for hygiene and personal care. Determine level of activity including ambulation, level of supervision, visitors , and determine privileges based on behaviors and level of engagement by pt. SAFETY PLAN: C.M Room 9 1. Will remain on suicide precautions and in paper clothes. 2. Will remain in room under direct supervision of one on one CPSO trained, UBALDO , CECE sole conforming machine operator. Tanvi will be supervised while ambulating to and from the shower or bathroom, by trained one on one staff. 3. May have paper cups, plates, finger foods as well as a metal spoon with which to eat meals. [facility] staff will be responsible for accounting of utensils after meals. 4. Follow [facility] Management of the Admitted Behavioral Health Patient policy. 5. Tanvi may shower with qualified staff outside the door. 6. Tanvi may have her cell phone at the discretion of direct care providers. Cords will remain outside the room and the phone may be charged at the nurse?s station. 7. No visitors currently. 8.Tanvi may have television and the remote in the room once a television is available. She may have activities that include a book, magazine, coloring book , paper and crayons. [facility] will be coordinating placement at inpatient facility, last updates included the following: [place] and [facility] anticipate they will have bed availability tomorrow. [facility] crisis Enriqueta will contact in the morning to review availability of beds and scheduled huddle time after she meets with the patient. Tanvi will be admitted to the Medical surgical unit per nursing food preparation supervisor. She will have one on one throughout the night. Patient is currently voluntarily at [facility] and seeking inpatient admission when a bed becomes available. [facility] Frontline Microwave Remote Sensing Scientist will continue seeking placement. Please contact the Executive Secretary Social Welfare Mh Teacher ([phone]) and [facility] Microwave Remote Sensing Scientist ([phone]) for any needed changes in the Safety Plan. Safety plan has been provided to interdepartmental care team including Clinical Coordinator, Nursing Blender Helper.
--- NOTE | 2018-05-27 22:30 | W.PM.HP.N ---
Date of service: 05/27/18 Time of Service: 22:31 Assessment and Plan (1) Suicidal ideation: Current visit: Yes Status: Acute We will continue usual medications as is and await placement at a psychiatric facility Chief complaint: Suicidal ideation History of present illness: Patient is a 22-year-old female with a long history of depression and prior history of drug overdose. She has been feeling more depressed over the last few weeks, no specific precipitant. She is saw her therapist today and expressed suicidal ideation the report is that they came up with a care plan to keep her safe but when the patient got home she found herself feeling increasingly like she might take a drug overdose and she came to the emergency room. In the emergency room she was medically cleared up. She was seen by mental health and plan for voluntary psychiatric admission was agreed upon. There was no bed availability and she is admitted here pending transfer to psychiatric facility. Past medical history: Depression, migraine, eczema, alopecia, allergic rhinitis, history of pulmonary valve prolapse Allergies, citalopram (insomnia), ultrasound gel (itching) Medications Prozac 60 daily Risperdal 1 mg 3 times daily trazodone 100 mg at bedtime Physical exam: Blood pressure 100/63, respirations 18 temp 36.8, pulse at present approximately 60. HEENT unremarkable. Neck supple. Lungs clear. Heart regular rate and rhythm without murmurs rubs or gallops. Abdomen is soft nontender. Extremities without edema. Neurological patient is alert and oriented ?3. There is flat affect. She moves all 4 extremities equally. Laboratory: White count 6.1 hematocrit 34 platelet 223. Sodium 139, potassium 3.6,, chloride 103, bicarb 28, BUN 10 creatinine 0.9, glucose 94, calcium 9.0, magnesium 1.9. Assessment and plan: Suicidal ideation, no medical issues. Will continue usual medications as is and await voluntary admission to psychiatric facility Review of Systems Review of Systems All systems reviewed & are unremarkable except as noted in HPI and below PFSH Family History Mother Obstructive sleep apnea syndrome Father Esophageal stricture Sister Mental disorder Sister No problems noted. Brother No problems noted. Brother Asthma Medical History Allergic rhinitis Alopecia (capitis) totalis Asthma Atopic dermatitis Migraine Urinary tract infection Social History frequency: daily Smoking/Tobacco Use Status: Never alcohol intake: current substance use type: does not use Meds Home Medications Medication Instructions Recorded Confirmed Type albuterol sulfate [ProAir HFA] 2 puff INHALATION Q4H PRN #1 05/07/16 05/27/18 History inhaler ondansetron HCl [Zofran] 8 mg PO TID #6 tab-cap 07/03/16 05/27/18 History trazodone 100 mg PO HS tab-cap 04/21/18 05/27/18 History magnesium hydroxide [Milk of 30 ml PO PRN ml 05/07/18 05/27/18 History Magnesia] melatonin-pyridoxine HCl (B6) 6 mg PO HS PRN tab 05/07/18 05/27/18 History risperidone [Risperdal] 1 mg PO TID tab-cap 05/09/18 05/27/18 History fluoxetine 20 mg capsule 60 mg PO DAILY tab-cap 05/23/18 05/27/18 History Allergies Allergy/AdvReac Type Severity Reaction Status Date / Time citalopram AdvReac insomnia Unverified 05/27/18 18:06 ultrasound gel Allergy Intermediate Itching Uncoded 05/27/18 18:06 Results Labs : 05/27/18 18:30 05/27/18 18:30 Laboratory Results - last 24 hr 05/27/18 05/27/18 05/27/18 18:28 18:30 18:30 WBC RBC Hgb Hct MCV MCH MCHC RDW Plt Count MPV Immature Gran % Neutrophils % Lymphocytes % Monocytes % Eosinophils % Basophils % Absolute Neutrophils Absolute Lymphocytes Absolute Monocytes Absolute Eosinophils Absolute Basophils Sodium 139 Potassium 3.6 Chloride 103 Carbon Dioxide 28.0 Anion Gap 8.0 BUN 10 Creatinine 0.98 Estimated GFR/1.73 m2 >= 60.00 Glucose 94 Calcium 9.0 Total Bilirubin 0.5 AST 16 ALT 29 Alkaline Phosphatase 91 Total Protein 7.8 Albumin 4.2 TSH 1.26 Urine Color Urine Clarity Urine pH Ur Specific Bucklin Urine Protein Urine Ketones Urine Blood Urine Nitrite Urine Bilirubin Urine Urobilinogen Ur Leukocyte Esterase Urine Glucose Salicylates < 2.8 L Urine Opiates Screen Negative Urine Methadone Screen Negative Acetaminophen < 2 L Ur Barbiturates Screen Negative Ur Tricyclics Screen Negative Ur Amphetamines Screen Negative U Benzodiazepines Scrn Negative Urine Cocaine Screen Negative Ur THC Screen Negative Ethyl Alcohol < 3.0 05/27/18 05/27/18 18:30 18:32 WBC 6.10 RBC 4.00 Hgb 11.4 L Hct 34.8 L MCV 87.0 MCH 28.5 MCHC 32.8 RDW 12.9 Plt Count 223 MPV 11.1 H Immature Gran % 0.0 Neutrophils % 51.1 Lymphocytes % 33.8 Monocytes % 6.6 Eosinophils % 7.5 Basophils % 1.0 Absolute Neutrophils 3.12 Absolute Lymphocytes 2.06 Absolute Monocytes 0.40 Absolute Eosinophils 0.46 Absolute Basophils 0.06 Sodium Potassium Chloride Carbon Dioxide Anion Gap BUN Creatinine Estimated GFR/1.73 m2 Glucose Calcium Total Bilirubin AST ALT Alkaline Phosphatase Total Protein Albumin TSH Urine Color Yellow Urine Clarity Clear Urine pH 6.5 Ur Specific Bucklin >= 1.030 H Urine Protein Negative Urine Ketones Trace H Urine Blood Negative Urine Nitrite Negative Urine Bilirubin Negative Urine Urobilinogen 4.0 H Ur Leukocyte Esterase Negative Urine Glucose Negative Salicylates Urine Opiates Screen Urine Methadone Screen Acetaminophen Ur Barbiturates Screen Ur Tricyclics Screen Ur Amphetamines Screen U Benzodiazepines Scrn Urine Cocaine Screen Ur THC Screen Ethyl Alcohol
[2018-05-27 23:18] VITALS: BP 94/65; PULSE 85; RESP 18; TEMP 36.5; O2SAT 96
[2018-05-27 23:23] VITALS: BP 94/65; PULSE 85; RESP 18; TEMP 36.5; O2SAT 95
[2018-05-28 07:15] VITALS: BP 103/59; PULSE 68; RESP 16; TEMP 36.8; O2SAT 97
[2018-05-28 07:30] VITALS: O2SAT 97
[2018-05-28] MEDS: risperiDONE 1 MG TAB PO ×2 (07:55→13:52)
[2018-05-28] MEDS: FLUoxetine 20 MG CAP 60 MG PO (07:55)
--- NOTE | 2018-05-28 11:36 | W.INMHPGNOTE ---
Date of service: 05/28/18 Time of Service: 11:36 Mental Health Crisis Note Presenting Issue How did you arrive at the ED and why did you come: Patient initially arrived at the Emergency Department via private vehicle for increased depression and thoughts of suicide. Precipitating Factors Patient is actively suicidal and does not feel it would be safe for her to go home. The patient is unable to contract for safety. The patient states that she has a plan and would choose overdose as her methodology. Disposition BEHAVIOR: Patient is laying in on the hospital bed talking with this engineering technical writer. No abnormal behaviors. EYE CONTACT: Patient makes little eye contact with this engineering technical writer and instead seems to look through this engineering technical writer. MOOD: Patient appears to be calm AFFECT: Patient has a very flat affect and speaks in a soft monotone voice APPETITE: Patient states that she is eating well SLEEP(trouble falling/staying asleep: Patient states that she has been sleeping well and according to hospital staff has been asleep a majority of the morning Plan [facility] Awaiting the Doc to [facility] and transport. Signature Clinician's Name/Title: Enriqueta Alfaro - [facility] Emergency Clinician
--- NOTE | 2018-05-28 11:45 | MHPN_ITS ---
Date of service: 05/28/18 Time of Service: 11:36 Mental Health Crisis Note Presenting Issue How did you arrive at the ED and why did you come: Patient initially arrived at the Emergency Department via private vehicle for increased depression and thoughts of suicide. Precipitating Factors Patient is actively suicidal and does not feel it would be safe for her to go home. The patient is unable to contract for safety. The patient states that she has a plan and would choose overdose as her methodology. Disposition BEHAVIOR: Patient is laying in on the hospital bed talking with this program writer. No abnormal behaviors. EYE CONTACT: Patient makes little eye contact with this program writer and instead seems to look through this program writer. MOOD: Patient appears to be calm AFFECT: Patient has a very flat affect and speaks in a soft monotone voice APPETITE: Patient states that she is eating well SLEEP(trouble falling/staying asleep: Patient states that she has been sleeping well and according to hospital staff has been asleep a majority of the morning Plan [facility] Awaiting the Doc to [facility] and transport. Signature Clinician's Name/Title: Enriqueta Alfaro - [facility] Emergency Clinician
--- NOTE | 2018-05-28 13:17 | PDOC.CMDIS ---
- If Service Date Differs Date of service: 05/28/18 Time of Service: 13:17 LACE Index Scoring Tool - Questions: Length of Stay (in days): 2 Acuity (Admit via E.D.?): Yes E.D. Visits: 7 - Answers: Total Score: 9 Risk of Readmission: Low Risk Care Management Discharge Reason for Hospitalization: Suicidal ideation. Discharge Plan: Tanvi is being transfered to estimated discharge time is 2:30pm. BR notified and CM coordianted sherrif transport. Sruthi will have a short visit with her Mother and two year old daughter prior to discharge. Nurse and CCRN are aware. Tanvi is motivated to transition to treatment program, she makes good eye contact and is willing to transfer. CM explained how she will be transfered and she agrees with transportation plan. Patient/Family Education Needs: Discharge education, limitations and follow up plan of care. CM reviewed what to expect at time of transfer. CM provided contact information to pt to follow up with after discharge for questions or concerns. Nursing from will contact randy at [facility] for report. If no contact report number is [phone]. Services Needed at Discharge: Transportation - MH Services (Omit if N/A) Current MH Services: [facility]
--- NOTE | 2018-05-28 13:25 | CMDISCH_ITS ---
- If Service Date Differs Date of service: 05/28/18 Time of Service: 13:17 LACE Index Scoring Tool - Questions: Length of Stay (in days): 2 Acuity (Admit via E.D.?): Yes E.D. Visits: 7 - Answers: Total Score: 9 Risk of Readmission: Low Risk Care Management Discharge Reason for Hospitalization: Suicidal ideation. Discharge Plan: Tanvi is being transfered to estimated discharge time is 2 :30pm. BR notified and CM coordianted sherrif transport. Sruthi will have a short visit with her Mother and two year old daughter prior to discharge. Nurse and CCRN are aware. Tanvi is motivated to transition to treatment program, she makes good eye contact and is willing to transfer. CM explained how she will be transfered and she agrees with transportation plan. Patient/Family Education Needs: Discharge education, limitations and follow up plan of care. CM reviewed what to expect at time of transfer. CM provided contact information to pt to follow up with after discharge for questions or concerns. Nursing from will contact randy at [facility] for report. If no contact report number is [phone]. Services Needed at Discharge: Transportation - MH Services (Omit if N/A) Current MH Services: [facility]
--- NOTE | 2018-05-28 13:25 | PDOC.CMIN ---
- If Service Date Differs Date of service: 05/28/18 Time of Service: 13:25 Care Management Initial Assess REASON FOR HOSPITALIZATION:: Suicidal ideation PAST MEDICAL HISTORY/PAST SURGICAL HISTORY:: ANxiety, pulmonary valve prolaspe, eczema, allergic rhinitis, asthma, migraines, syncope, depression PREVIOUS FUNCTIONAL STATUS/SOCIAL/FAMILY SUPPORTS:: Tanvi lives with her Mom she has a two year old daughter in [place], [place]. She receives support services through [facility]. She has a boyfriend named Gloria. CURRENT FUNCTIONAL STATUS:: Tanvi is sitting up in bed, she makes good eye contact with CM. She states she still feels suicidal and believes she needs psychiatric admission. She is requesting that she meet with her daughter and Mom prior to leaving [facility]. CM reviewed with primay nurse and CCRN and she will meet with family before discharge. ADVANCE DIRECTIVES:: None on file Has patient been provided with information about the portal?: Yes Did the patient sign up for the portal?: No CODE STATUS:: Full Code INSURANCE COVERAGE / FINANCIAL ISSUES:: Medicaid CURRENT HOME/COMMUNITY SERVICES/EQUIPMENT:: [facility] PRIMARY CARE PHYSICIAN:: POTENTIAL DISCHARGE NEEDS:: Transfer to psychiatric facility PATIENT/FAMILY EDUCATION NEEDS:: Transfer education and follow up plan of care. ANTICIPATED BARRIERS TO DISCHARGE:: None identified at this time. Accepted to facility. TRANSPORTATION:: Via bird trapper coordinated by [facility] PLAN:: Tanvi will be transfered to . Provider to provider completed. Dr. Mendosa will complete discharge. Tanvi wants to be inpatient and feels that she needs help with medicaiton management and psychiatric stabilization. CM contacted and provided estimated time of arrival.
--- NOTE | 2018-05-28 13:34 | INITIAL_ITS ---
- If Service Date Differs Date of service: 05/28/18 Time of Service: 13:25 Care Management Initial Assess REASON FOR HOSPITALIZATION:: Suicidal ideation PAST MEDICAL HISTORY/PAST SURGICAL HISTORY:: ANxiety, pulmonary valve prolaspe, eczema, allergic rhinitis, asthma, migraines, syncope, depression PREVIOUS FUNCTIONAL STATUS/SOCIAL/FAMILY SUPPORTS:: Tanvi lives with her Mom she has a two year old daughter in [place], [place]. She receives support services through [facility]. She has a boyfriend named Gloria. CURRENT FUNCTIONAL STATUS:: Tanvi is sitting up in bed, she makes good eye contact with CM. She states she still feels suicidal and believes she needs psychiatric admission. She is requesting that she meet with her daughter and Mom prior to leaving [facility]. CM reviewed with primay nurse and CCRN and she will meet with family before discharge. ADVANCE DIRECTIVES:: None on file Has patient been provided with information about the portal?: Yes Did the patient sign up for the portal?: No CODE STATUS:: Full Code INSURANCE COVERAGE / FINANCIAL ISSUES:: Medicaid CURRENT HOME/COMMUNITY SERVICES/EQUIPMENT:: [facility] PRIMARY CARE PHYSICIAN:: POTENTIAL DISCHARGE NEEDS:: Transfer to psychiatric facility PATIENT/FAMILY EDUCATION NEEDS:: Transfer education and follow up plan of care. ANTICIPATED BARRIERS TO DISCHARGE:: None identified at this time. Accepted to facility. TRANSPORTATION:: Via member services coordinator coordinated by [facility] PLAN:: Tanvi will be transfered to . Provider to provider completed. Dr. Mendosa will complete discharge. Tanvi wants to be inpatient and feels that she needs help with medicaiton management and psychiatric stabilization. CM contacted and provided estimated time of arrival.
--- NOTE | 2018-05-28 14:15 | DSE_ITS ---
Date of service: 05/28/18 Time of Service: 14:15 DS: Diagnosis Discharge Diagnosis (1) Suicidal ideation: Status: Acute Discharge Plan Disposition Patient Disposition: MAR RETREAT Condition: Stable Discharge Details Reason For Visit: SUICIDAL IDEATION Admit Date/Time: 05/27/18 22:40 Admit Provider: Elvin Vu Attending Provider: Elvin Vu Primary Care Provider: Eric Singer [place] [facility] Hospital Course: See Dr. Elvin Vu's admission history and physical examination dated May 27, 2018 for details.Patient is a 22-year-old female with a history of depression and prior history of drug overdose this become progressively depressed for the last few weeks. She seen her therapist on the day of her hospitalization and expressed suicidal ideation although she and her therapist to come up with a care plan to keep her safe she found herself feeling increasingly likely to take a drug overdose and therefore she presented to the emergency room. She was evaluated in the emergency department and found to be medically stable. There were no inpatient psychiatric beds available throughout the [facility] therefore she was admitted overnight to [facility] under voluntary admission awaiting a psychiatric bed. Home Meds and New Rx's Prescriptions: Continue fluoxetine 20 mg capsule 60 mg PO DAILY RF: 0 albuterol sulfate [ProAir HFA] 8.5 GM HFA aerosol inhaler 2 puff Inhalation Q4H PRN Qty: 1 RF: 0 ondansetron HCl [Zofran] 8 MG tablet 8 mg PO TID Qty: 6 RF: 0 ipratropium-albuterol 3 ML solution for nebulization 3 ml Inhalation Q3H PRN Qty: 1 RF: 3 fluticasone [Flovent HFA] 120 PUFF HFA aerosol inhaler 2 puff Inhalation BID Qty: 1 RF: 2 trazodone 50 MG tablet 100 mg PO HS RF: 0 sumatriptan succinate [Imitrex] 25 MG tablet 1 tab PO ONCE Qty: 12 RF: 6 magnesium hydroxide [Milk of Magnesia] 400 MG/5 ML suspension 30 ml PO PRN RF: 0 melatonin-pyridoxine HCl (B6) 1 EACH tablet 6 mg PO HS PRNRF: 0 risperidone [Risperdal] 1 MG tablet 1 mg PO TID RF: 0 Discharge Instructions Instructions: Depression (DC), Suicide Prevention for Adults (DC) Stand Alone Forms: Nursing Discharge Form Activity:: Activity as Tolerated Equipment/Supplies:: No Equipment Needed Diet:: Regular Discharge Orders Discharge Orders: Discharge Order (Routine); Ordered 05/28/18 Ordered By: Chon Mendosa Discharge Data Discharge Date/Time-TO BE ENTERED AT DEPARTURE: 05/28/18 14:51 Exam Psych Appearance: grossly normal Mental Status: other (Depressed mood and affect but otherwise alert and oriented with coherent speech and focused thought process) Speech and Movement: speech and movement normal Mood: dysthymic mood and other (Depressed mood and affect but otherwise alert and oriented with coherent speech and focused thought process) Affect: dysphoric affect Attitude: cooperative Thought Process: normal Thought Content: normal Insight: fair Judgment: fair DS: Data Vitals/I&O Vitals and I&O: Vital Signs Temp 36.8 C 05/28/18 07:15 Pulse 68 05/28/18 07:15 Resp 16 05/28/18 07:15 BP 103/59 L 05/28/18 07:15 Pulse Ox 97 05/28/18 07:30 Intake & Output 05/27/18 05/28/18 05/28/18 23:59 11:59 23:59 Intake Total 240 / 240 Balance 240 / 240 Weight 52 kg Intake: Oral 240 / 240 Other: Comment Pt up voiding as needed according to [employer]. Voiding Methods Toilet Labs on day of discharge: Labs from last 24 hours 05/27/18 05/27/18 05/27/18 18:32 18:30 18:30 WBC 6.10 RBC 4.00 Hgb 11.4 L Hct 34.8 L MCV 87.0 MCH 28.5 MCHC 32.8 RDW 12.9 Plt Count 223 MPV 11.1 H Immature Gran % 0.0 Neutrophils % 51.1 Lymphocytes % 33.8 Monocytes % 6.6 Eosinophils % 7.5 Basophils % 1.0 Absolute Neutrophils 3.12 Absolute Lymphocytes 2.06 Absolute Monocytes 0.40 Absolute Eosinophils 0.46 Absolute Basophils 0.06 Sodium Potassium Chloride Carbon Dioxide Anion Gap BUN Creatinine Estimated GFR/1.73 m2 Glucose Calcium Total Bilirubin AST ALT Alkaline Phosphatase Total Protein Albumin TSH Urine Color Yellow Urine Clarity Clear Urine pH 6.5 Ur Specific [place] >= 1.030 H Urine Protein Negative Urine Ketones Trace H Urine Blood Negative Urine Nitrite Negative Urine Bilirubin Negative Urine Urobilinogen 4.0 H Ur Leukocyte Esterase Negative Urine Glucose Negative Salicylates < 2.8 L Urine Opiates Screen Urine Methadone Screen Acetaminophen < 2 L Ur Barbiturates Screen Ur Tricyclics Screen Ur Amphetamines Screen U Benzodiazepines Scrn Urine Cocaine Screen Ur THC Screen Ethyl Alcohol 05/27/18 05/27/18 18:30 18:28 WBC RBC Hgb Hct MCV MCH MCHC RDW Plt Count MPV Immature Gran % Neutrophils % Lymphocytes % Monocytes % Eosinophils % Basophils % Absolute Neutrophils Absolute Lymphocytes Absolute Monocytes Absolute Eosinophils Absolute Basophils Sodium 139 Potassium 3.6 Chloride 103 Carbon Dioxide 28.0 Anion Gap 8.0 BUN 10 Creatinine 0.98 Estimated GFR/1.73 m2 >= 60.00 Glucose 94 Calcium 9.0 Total Bilirubin 0.5 AST 16 ALT 29 Alkaline Phosphatase 91 Total Protein 7.8 Albumin 4.2 TSH 1.26 Urine Color Urine Clarity Urine pH Ur Specific [place] Urine Protein Urine Ketones Urine Blood Urine Nitrite Urine Bilirubin Urine Urobilinogen Ur Leukocyte Esterase Urine Glucose Salicylates Urine Opiates Screen Negative Urine Methadone Screen Negative Acetaminophen Ur Barbiturates Screen Negative Ur Tricyclics Screen Negative Ur Amphetamines Screen Negative U Benzodiazepines Scrn Negative Urine Cocaine Screen Negative Ur THC Screen Negative Ethyl Alcohol < 3.0
--- NOTE | 2018-05-28 14:36 | NUR.NOTE ---
Nursing Note: 1420 Report tried to be given to nurse at [facility], message and number for [facility] given to admin secretary who stated she will have a nurse call back.
== END 2018-05-28 14:51 | disposition short-term general hospital (02) ==
LOC: ER 22:03 → MS 05-28 09:45
PROVIDERS: Admitting Provider General Practice; Emergency Provider Nurse Practitioner Family; PCP Family Medicine; Visit Provider Internal Medicine
DX: F32.9 Major depressive disorder, single episode, unspecified (principal); R45.851 Suicidal ideations; Z91.5 Personal history of self-harm; F19.11 Other psychoactive substance abuse, in remission
CPT/HCPCS: 36415; 80053; 80307; 81025; 99222; 99238; 99285; 80320; 80329; 81003; 84443; 85025; 99217; G0378

== ENCOUNTER 2018-06-20 09:02 | Outpatient (CLI) | payer MEDICAID, SELFPAY ==
[2018-06-20 10:04] LABS: Lithium 0.89 mmol/L (0.60-1.20)
[2018-06-20 11:42] LABS: ALT 27 U/L (12-78); AST 15 U/L (15-37); Albumin 4.1 g/dL (3.4-5.0); Alkaline Phosphatase 93 U/L (46-116); Anion Gap 9.3 mmol/L (3-11); BUN 11 mg/dL (7-18); Bilirubin, Total 0.6 mg/dL (0.2-1.0); CO2 26.7 mmol/L (21.0-32.0); CREATININE 0.97 mg/dL (0.55-1.02); Calcium 9.1 mg/dL (8.5-10.1); Chloride 103 mmol/L (98-107); Glucose 123 mg/dL (70-100); Sodium 139 mmol/L (136-145); Total Protein 7.5 g/dL (6.4-8.2)
== END 2018-06-20 09:22 ==
PROVIDERS: PCP Family Medicine; Visit Provider Nurse Practitioner Family
DX: F33.2 Major depressive disorder, recurrent severe without psychotic features (principal); Z79.899 Other long term (current) drug therapy; Z51.81 Encounter for therapeutic drug level monitoring
CPT/HCPCS: 36415; 80053; 80178; 84443

== ENCOUNTER 2018-08-02 22:07 | Emergency (ER) | payer MEDICAID, SELFPAY ==
[2018-08-02 22:10] VITALS: BP 99/66; PULSE 76; RESP 16; TEMP 37.1; O2SAT 98
--- NOTE | 2018-08-02 22:29 | W.ED.GENAD ---
Discharge Plan Disposition Patient Disposition: HOME Condition: Stable Discharge Details Chief Complaint: PsychEval Clinical Impression: Depression Primary Care Provider: Eric Singer ED Provider: Jalen Raymond Home Meds and New Rx's Prescriptions: Continue fluoxetine 20 mg capsule 60 mg PO DAILY RF: 0 promethazine 25 mg tablet 25 mg PO Q6H PRN (Reason: migraine headache) Qty: 20 RF: 0 albuterol sulfate [ProAir HFA] 8.5 GM HFA aerosol inhaler 2 puff Inhalation Q4H PRN Qty: 1 RF: 0 ondansetron HCl [Zofran] 8 MG tablet 8 mg PO TID Qty: 6 RF: 0 ipratropium-albuterol 3 ML solution for nebulization 3 ml Inhalation Q3H PRN Qty: 1 RF: 3 fluticasone [Flovent HFA] 120 PUFF HFA aerosol inhaler 2 puff Inhalation BID Qty: 1 RF: 2 trazodone 50 MG tablet 100 mg PO HS RF: 0 magnesium hydroxide [Milk of Magnesia] 400 MG/5 ML suspension 30 ml PO PRN RF: 0 lorazepam [Ativan] 0.5 mg tablet 0.5 mg PO DAILY PRN (Reason: anxiety) RF: 0 risperidone [Risperdal] 1 mg tablet 1 mg PO BID RF: 0 No Action lithium capsule 600 mg PO HS RF: 0 Discharge Instructions Instructions: Depression (ED) Additional Instructions: Follow-up with mental health tomorrow as planned with Ana Luisa in the office. Return at any time for any concerns to the emergency department. Discuss with your prescriber restarting lithium at visit tomorrow. Discharge Data Discharge Date/Time-TO BE ENTERED AT DEPARTURE: 08/03/18 09:03 Medical Decision Making <Moe Knutson MD - Last Filed: 08/03/18 20:05> 23 yo female with hx of depression comes in with thoguhts of wanting to harm herself and she states she took a handful of her 300mg lithium tablets and 1-2 0.5mg ativan around 2100 She states the max number of pills of lithium she could have taken is 10 but is not sure. Is HD stable now, will eval for other coningestants and monitor and obtain lithium level initial set of lab work unremarkable other than lithium level of 1.86 mmol/L. Pt remains stable. Spoke with poison control who recommended repeating in 4 hours along with acetaminophen level and if the lithium level is going down can begin to stop checking lithium levels the original lithium level was entered in error and was actually 0.86 per lab, second was 2.2 and last is 2.14. Spoke with poison control and given she is asymptomatic/mild symptoms and Li level is downtrending can stop checking this. She is medically cleared to see mental health. Pt will be signed out to Dr. Raymond pending mental health eval Differential Diagnosis depression, si, overdose Lab Data Lab results reviewed: Yes I reviewed the patient's lab results. ECG Data Attestation: I personally reviewed and interpreted this ECG (s) as follows: Prior ECG tracings: not available for review Interpretation: sinus rhythm, rate of 60, pr 186, qtc 428 <Jalen Raymond MD - Last Filed: 08/03/18 08:24> Received signout from Dr. Knutson. Please see his note regarding details of the presentation, history, initial exam and plan of care. Patient has been medically cleared. Seen by mental health with plan for outpatient care including follow-up with her therapist tomorrow. Patient agreed to plan of safety. Mental health discussed holding of the medications with her mother. I will ask that she not resume lithium until discussed with mental health tomorrow. HPI <Moe Knutson MD - Last Filed: 08/03/18 20:05> General Mode of arrival: ambulatory. Date/Time Provider Initiated Documentation: 08/02/18 22:14. Limitations to Documentation: no limitations. Information obtained by: patient. History of Present Illness 23 year old F presents to the emergency department with the chief complaint of depressed, described as moderate, No relieving factors improve symptom(s), No exacerbating factors reported . Patient did receive the following treatments prior to arrival, none Related Data Home Medications Medication Instructions Recorded Confirmed albuterol sulfate [ProAir HFA] 2 puff INHALATION Q4H PRN #1 05/07/16 07/22/18 inhaler ondansetron HCl [Zofran] 8 mg PO TID #6 tab-cap 07/03/16 07/22/18 ipratropium-albuterol 3 ml INHALATION Q3H PRN #1 box 08/09/17 07/22/18 fluticasone [Flovent HFA] 2 puff INHALATION BID #1 inh 08/12/17 07/22/18 trazodone 100 mg PO HS tab-cap 04/21/18 07/22/18 magnesium hydroxide [Milk of 30 ml PO PRN ml 05/07/18 07/22/18 Magnesia] fluoxetine 20 mg capsule 60 mg PO DAILY tab-cap 05/23/18 07/22/18 lithium 600 mg PO HS 06/17/18 07/22/18 lorazepam 0.5 mg tablet 0.5 mg PO DAILY PRN 06/19/18 07/22/18 risperidone 1 mg tablet 1 mg PO BID tab-cap 07/08/18 07/22/18 promethazine 25 mg tablet 25 mg PO Q6H PRN #20 tab 07/22/18 07/22/18 Previous Rx's Medication Instructions Recorded ipratropium-albuterol 3 ml INHALATION Q3H PRN #1 box 08/09/17 fluticasone [Flovent HFA] 2 puff INHALATION BID #1 inh 08/12/17 promethazine 25 mg tablet 25 mg PO Q6H PRN #20 tab 07/22/18 Allergies Allergy/AdvReac Type Severity Reaction Status Date / Time citalopram AdvReac Intermediate insomnia Verified 07/22/18 13:04 ultrasound gel Allergy Intermediate Itching Uncoded 07/08/18 13:37 General Stated Complaint: PsychEval CONOR: 2 Review of Systems <Moe Knutson MD - Last Filed: 08/03/18 20:05> Review of Systems All systems reviewed & are unremarkable except as noted in HPI and below Constitutional Denies chills and Denies fever(s) ENT Denies change in voice Cardiovascular Denies chest pain and Denies dyspnea Respiratory Denies dyspnea Gastrointestinal Denies abdominal pain, Denies nausea and Denies vomiting Genitourinary Denies dysuria Integumentary/Breasts Denies rash Endocrine Denies cold intolerance Exam <Moe Knutson MD - Last Filed: 08/03/18 20:05> Const General: no acute distress Orientation: alert [facility] Head: normal to inspection Ears: external ears normal General nose exam: external nose normal Mouth: moist mucous membranes Eyes General: appearance normal, both eyes and all related structures Neck Neck: normal visual inspection Resp Effort & Inspection: normal respiratory effort and able to speak in complete sentences Cardio Rate: regular rate Skin General skin exam: no rashes or lesions noted Neuro General: alert and oriented x3 Extrem General: normal to inspection Psych Speech and Movement: speech and movement normal Course <Moe Knutson MD - Last Filed: 08/03/18 20:05> Vital Signs Temperature 37.1 C 08/02/18 22:10 Pulse 76 08/02/18 22:10 Respiratory Rate 16 08/02/18 22:10 Blood Pressure 99/66 L 08/02/18 22:10 Pulse Oximetry 98 08/02/18 22:10 Temperature 37.1 C 08/02/18 22:10 Temperature Source Temporal Artery Scan 08/02/18 22:10 Pulse 76 08/02/18 22:10 Respiratory Rate 16 08/02/18 22:10 Blood Pressure 99/66 L 08/02/18 22:10 Blood Pressure Position Sitting 08/02/18 22:10 Pulse Oximetry 98 08/02/18 22:10 Oxygen Delivery Method Room Air 08/02/18 22:10 Oxygen Flow Rate 0 08/02/18 22:10 Pain Level 0 08/02/18 22:10 Sign Out <Moe Knutson MD - Last Filed: 08/03/18 20:05> Sign Out Data: Sign Out Comment: follow up on mental health evaluation Last updated by Moe Knutson MD at 08/03/18 07:42
--- NOTE | 2018-08-02 22:35 | ED.GENADUL_ITS ---
Discharge Plan Disposition Patient Disposition: HOME Condition: Stable Discharge Details Chief Complaint: PsychEval Clinical Impression: Depression Primary Care Provider: Eric Singer ED Provider: Jalen Raymond Home Meds and New Rx's Prescriptions: Continue fluoxetine 20 mg capsule 60 mg PO DAILY RF: 0 promethazine 25 mg tablet 25 mg PO Q6H PRN (Reason: migraine headache) Qty: 20 RF: 0 albuterol sulfate [ProAir HFA] 8.5 GM HFA aerosol inhaler 2 puff Inhalation Q4H PRN Qty: 1 RF: 0 ondansetron HCl [Zofran] 8 MG tablet 8 mg PO TID Qty: 6 RF: 0 ipratropium-albuterol 3 ML solution for nebulization 3 ml Inhalation Q3H PRN Qty: 1 RF: 3 fluticasone [Flovent HFA] 120 PUFF HFA aerosol inhaler 2 puff Inhalation BID Qty: 1 RF: 2 trazodone 50 MG tablet 100 mg PO HS RF: 0 magnesium hydroxide [Milk of Magnesia] 400 MG/5 ML suspension 30 ml PO PRN RF: 0 lorazepam [Ativan] 0.5 mg tablet 0.5 mg PO DAILY PRN (Reason: anxiety) RF: 0 risperidone [Risperdal] 1 mg tablet 1 mg PO BID RF: 0 No Action lithium capsule 600 mg PO HS RF: 0 Discharge Instructions Instructions: Depression (ED) Additional Instructions: Follow-up with mental health tomorrow as planned with Ana Luisa in the office. Return at any time for any concerns to the emergency department. Discuss with your prescriber restarting lithium at visit tomorrow. Discharge Data Discharge Date/Time-TO BE ENTERED AT DEPARTURE: 08/03/18 09:03 Medical Decision Making <Moe Knutson MD - Last Filed: 08/03/18 20:05> 23 yo female with hx of depression comes in with thoguhts of wanting to harm herself and she states she took a handful of her 300mg lithium tablets and 1- 2 0.5mg ativan around 2100 She states the max number of pills of lithium she could have taken is 10 but is not sure. Is HD stable now, will eval for other coningestants and monitor and obtain lithium level initial set of lab work unremarkable other than lithium level of 1.86 mmol/L. Pt remains stable. Spoke with poison control who recommended repeating in 4 hours along with acetaminophen level and if the lithium level is going down can begin to stop checking lithium levels the original lithium level was entered in error and was actually 0.86 per lab, second was 2.2 and last is 2.14. Spoke with poison control and given she is asymptomatic/mild symptoms and Li level is downtrending can stop checking this. She is medically cleared to see mental health. Pt will be signed out to Dr. Raymond pending mental health eval Differential Diagnosis depression, si, overdose Lab Data Lab results reviewed: Yes I reviewed the patient's lab results. ECG Data Attestation: I personally reviewed and interpreted this ECG (s) as follows: Prior ECG tracings: not available for review Interpretation: sinus rhythm, rate of 60, pr 186, qtc 428 <Jalen Raymond MD - Last Filed: 08/03/18 08:24> Received signout from Dr. Knutson. Please see his note regarding details of the presentation, history, initial exam and plan of care. Patient has been medically cleared. Seen by mental health with plan for outpatient care including follow-up with her therapist tomorrow. Patient agreed to plan of safety. Mental health discussed holding of the medications with her mother. I will ask that she not resume lithium until discussed with mental health tomorrow. HPI <Moe Knutson MD - Last Filed: 08/03/18 20:05> General Mode of arrival: ambulatory . Date/Time Provider Initiated Documentation: 08/02/18 22:14 . Limitations to Documentation: no limitations . Information obtained by: patient . History of Present Illness 23 year old F presents to the emergency department with the chief complaint of depressed, described as moderate, No relieving factors improve symptom(s), No exacerbating factors reported . Patient did receive the following treatments prior to arrival, none Related Data Home Medications Medication Instructions Recorded Confirmed albuterol sulfate [ProAir HFA] 2 puff INHALATION Q4H PRN #1 05/07/16 07/22/18 inhaler ondansetron HCl [Zofran] 8 mg PO TID #6 tab-cap 07/03/16 07/22/18 ipratropium-albuterol 3 ml INHALATION Q3H PRN #1 box 08/09/17 07/22/18 fluticasone [Flovent HFA] 2 puff INHALATION BID #1 inh 08/12/17 07/22/18 trazodone 100 mg PO HS tab-cap 04/21/18 07/22/18 magnesium hydroxide [Milk of 30 ml PO PRN ml 05/07/18 07/22/18 Magnesia] fluoxetine 20 mg capsule 60 mg PO DAILY tab-cap 05/23/18 07/22/18 lithium 600 mg PO HS 06/17/18 07/22/18 lorazepam 0.5 mg tablet 0.5 mg PO DAILY PRN 06/19/18 07/22/18 risperidone 1 mg tablet 1 mg PO BID tab-cap 07/08/18 07/22/18 promethazine 25 mg tablet 25 mg PO Q6H PRN #20 tab 07/22/18 07/22/18 Previous Rx's Medication Instructions Recorded ipratropium-albuterol 3 ml INHALATION Q3H PRN #1 box 08/09/17 fluticasone [Flovent HFA] 2 puff INHALATION BID #1 inh 08/12/17 promethazine 25 mg tablet 25 mg PO Q6H PRN #20 tab 07/22/18 Allergies Allergy/AdvReac Type Severity Reaction Status Date / Time citalopram AdvReac Intermediate insomnia Verified 07/22/18 13:04 ultrasound gel Allergy Intermediate Itching Uncoded 07/08/18 13:37 General Stated Complaint: PsychEval CONOR: 2 Review of Systems <Moe Knutson MD - Last Filed: 08/03/18 20:05> Review of Systems All systems reviewed & are unremarkable except as noted in HPI and below Constitutional Denies chills and Denies fever(s) ENT Denies change in voice Cardiovascular Denies chest pain and Denies dyspnea Respiratory Denies dyspnea Gastrointestinal Denies abdominal pain, Denies nausea and Denies vomiting Genitourinary Denies dysuria Integumentary/Breasts Denies rash Endocrine Denies cold intolerance Exam <Moe Knutson MD - Last Filed: 08/03/18 20:05> Const General: no acute distress Orientation: alert [facility] Head: normal to inspection Ears: external ears normal General nose exam: external nose normal Mouth: moist mucous membranes Eyes General: appearance normal, both eyes and all related structures Neck Neck: normal visual inspection Resp Effort & Inspection: normal respiratory effort and able to speak in complete sentences Cardio Rate: regular rate Skin General skin exam: no rashes or lesions noted Neuro General: alert and oriented x3 Extrem General: normal to inspection Psych Speech and Movement: speech and movement normal Course <Moe Knutson MD - Last Filed: 08/03/18 20:05> Vital Signs Temperature 37.1 C 08/02/18 22:10 Pulse 76 08/02/18 22:10 Respiratory Rate 16 08/02/18 22:10 Blood Pressure 99/66 L 08/02/18 22:10 Pulse Oximetry 98 08/02/18 22:10 Temperature 37.1 C 08/02/18 22:10 Temperature Source Temporal Artery Scan 08/02/18 22:10 Pulse 76 08/02/18 22:10 Respiratory Rate 16 08/02/18 22:10 Blood Pressure 99/66 L 08/02/18 22:10 Blood Pressure Position Sitting 08/02/18 22:10 Pulse Oximetry 98 08/02/18 22:10 Oxygen Delivery Method Room Air 08/02/18 22:10 Oxygen Flow Rate 0 08/02/18 22:10 Pain Level 0 08/02/18 22:10 Sign Out <Moe Knutson MD - Last Filed: 08/03/18 20:05> Sign Out Data: Sign Out Comment: follow up on mental health evaluation Last updated by Moe Knutson MD at 08/03/18 07:42
[2018-08-02 22:43] LABS: Absolute Basophil Count 0.07 k/cumm (0.0-0.2); Absolute Eosinophil Count 0.47 k/cumm (0.0-0.7); Absolute Lymphocyte Count 2.79 k/cumm (1.2-3.4); Absolute Neutrophil Count 4.22 k/cumm (1.2-6.7); Basophils % 0.9; Eosinophils % 5.8; HCT 35.2 % (36.0-46.0); HGB 11.6 g/dL (12.0-15.5); Lymphocytes % 34.2; Mean Corpuscular Hemoglobin 29.1 pg (27.0-33.0); Mean Corpuscular Volume 88.4 fL (80-95); Mean Platelet Volume 10.4 fL (8.0-11.0); Monocytes % 7.4; Neutrophils % 51.7; Platelet Count 293 x1000/uL (130-400); RBC 3.98 m/cumm (4.00-5.20); RBC Distribution Width 12.9 % (11.7-14.6); White Blood Cell Count 8.15 k/cumm (4.4-10.8)
[2018-08-02 22:56] LABS: ALT 32 U/L (12-78); AST 21 U/L (15-37); Albumin 4.1 g/dL (3.4-5.0); Alkaline Phosphatase 80 U/L (46-116); Anion Gap 7.4 mmol/L (3-11); BUN 16 mg/dL (7-18); Bilirubin, Direct 0.13 mg/dL (0.00-0.20); Bilirubin, Total 0.3 mg/dL (0.2-1.0); CO2 29.6 mmol/L (21.0-32.0); CREATININE 0.72 mg/dL (0.55-1.02); Calcium 9.1 mg/dL (8.5-10.1); Chloride 101 mmol/L (98-107); Glucose 81 mg/dL (70-100); Potassium 3.7 mmol/L (3.5-5.1); Sodium 138 mmol/L (136-145); Total Protein 7.9 g/dL (6.4-8.2)
[2018-08-02 23:05] LABS: ETHANOL BLOOD < 3.0 mg/dL (<3)
[2018-08-02 23:14] LABS: Acetaminophen < 2 ug/mL (10-30)
[2018-08-02 23:45] VITALS: BP 98/60; PULSE 89; RESP 14; TEMP 37; O2SAT 99
--- NOTE | 2018-08-02 23:45 | NUR.NOTE ---
Addendum entered by Jessica Baugh 08/03/18 06:22: 0455- pt resting in bed with eyes closed. Has been OOB to BR x 1. Remains 1:1 with [facility]. 0600- OOB to BR x 1- calm and cooperative. Original Note: Addendum entered by Jessica Baugh 08/03/18 04:11: 0400- pt in bed, on left side facing wall. RR even and non labored, blanket shielding face from light. Remains 1:1 with [facility]. Original Note: Addendum entered by Jessica Baugh 08/03/18 02:50: 2345- pt with mother in room. awake, alert and oriented. Nausea reported to MD. 0030- pt in room, resting on bed- wakes easily to verbal. Reports small abdominal cramping. Wants liquid. Encouraged to wait until nausea gone. Remains 1:1 with [facility]. 0130- Pt in room, resting. remains 1:1 direct observation with [facility]. 0220- Pt in room, resting on stretcher with covers pulled over head. Responds to verbal. alert and oriented. 0245- Moved to room #5 for monitoring r/t elevation in lithium level. MD aware. Pt alert, oriented, slightly off balance when standing and ambulating- pupils PERRL, afebrile. No spasticity or hyperreflexia noted. Asking for fluid, given graham luisito to sip. Will continue to monitor. Remains 1:1 with [facility]. Original Note: Nursing Note: pt vomiting x 1. aware and in room.
[2018-08-03] VITALS (9 sets, daily range): BP systolic 87–100; BP diastolic 42–68; PULSE 46–81; RESP 11–18; TEMP 36.9; O2SAT 94–97
[2018-08-03] MEDS: Normal Saline 1,000 ML 1000 ML IV ×2 (00:01→00:48)
[2018-08-03 00:48] LABS: *AMPHETAMINES SCREEN URINE Negative (Negative); *BARBITURATES SCREEN URINE Negative (Negative); *BENZODIAZEPINES SCREEN URINE Negative (Negative); Cannabinoids THC Negative (Negative); Cocaine Screen,Urine Negative (Negative); METHADONE URINE SCREEN Negative (Negative); OPIATES URINE SCREEN Negative (Negative)
[2018-08-03 00:49] LABS: Tricyclic Antidepressants Negative (Negative)
[2018-08-03 02:07] LABS: Lithium 0.89 mmol/L (0.60-1.20)
[2018-08-03 02:19] LABS: Acetaminophen < 2 ug/mL (10-30)
--- NOTE | 2018-08-03 04:22 | NUR.NOTE ---
Nursing Note: spoke with poison control, updated on pt's condition. Will continue to monitor.
[2018-08-03 04:31] LABS: Salicylate < 2.8 mg/dL (2.8-20.0)
[2018-08-03 06:24] LABS: Lithium 2.14 mmol/L (0.60-1.20)
--- NOTE | 2018-08-03 06:57 | NUR.NOTE ---
Patient lying on L side appears to be sleeping. No concerns at this time.
--- NOTE | 2018-08-03 08:11 | NUR.NOTE ---
Mental Health is at the bedside.
--- NOTE | 2018-08-03 08:28 | PDOC.MHCN ---
Date of service: 08/03/18 Time of Service: 08:29 Mental Health Crisis Note Presenting Issue How did you arrive at the ED and why did you come: Patient arrived at the emergency department after overdosing on her [place] prescription. Precipitating Factors Patient is biologically a female but identifies as a male. He prefers to be called Teodora. Patient states that he is feeling better and no longer has suicidal ideations. He states that he had a hard day at work ([employer]) yesterday causing him to feel suicidal. He states that as soon as he overdosed (took 10-20 pills) on his medication he felt it was a mistake. Patient states that he has not been taking his prescription regularly and as prescribed. He stated that he is supposed to take his [place] prescription twice a day but admits that he is kaylyn if he takes it once a day. Disposition BEHAVIOR: No abnormal behavior to report EYE CONTACT: Patient makes good and direct eye contact MOOD: Calm and cooperative AFFECT: Flat APPETITE: Good SLEEP(trouble falling/staying asleep: Patient states she gets roughly 8 hours of sleep each night Plan Patient contracted for safety. Patient has an appointment with her therapist tomorrow at [facility]. Patient's mother agrees to take possession of her daughter's prescription so that her intake can be monitored. Patient agrees to take her medication as prescribed. Patient will take one week off of work as she identified this as a life stressor. Patient agrees to the [facility] emergency line if she is having a mental health emergency. Signature Clinician's Name/Title: Enriqueta Alfaro - [facility] Emergency Clinician
--- NOTE | 2018-08-03 08:40 | PDOC.MHCN_ITS ---
Date of service: 08/03/18 Time of Service: 08:29 Mental Health Crisis Note Presenting Issue How did you arrive at the ED and why did you come: Patient arrived at the emergency department after overdosing on her [place] prescription. Precipitating Factors Patient is biologically a female but identifies as a male. He prefers to be called Teodora. Patient states that he is feeling better and no longer has suicidal ideations. He states that he had a hard day at work ([employer]) yesterday causing him to feel suicidal. He states that as soon as he overdosed ( took 10-20 pills) on his medication he felt it was a mistake. Patient states that he has not been taking his prescription regularly and as prescribed. He stated that he is supposed to take his [place] prescription twice a day but admits that he is kaylyn if he takes it once a day. Disposition BEHAVIOR: No abnormal behavior to report EYE CONTACT: Patient makes good and direct eye contact MOOD: Calm and cooperative AFFECT: Flat APPETITE: Good SLEEP(trouble falling/staying asleep: Patient states she gets roughly 8 hours of sleep each night Plan Patient contracted for safety. Patient has an appointment with her therapist tomorrow at [facility]. Patient's mother agrees to take possession of her daughter's prescription so that her intake can be monitored. Patient agrees to take her medication as prescribed. Patient will take one week off of work as she identified this as a life stressor. Patient agrees to the [facility] emergency line if she is having a mental health emergency. Signature Clinician's Name/Title: Enriqueta Alfaro - [facility] Emergency Clinician
== END 2018-08-03 09:03 | disposition home or self-care (01) ==
PROVIDERS: Emergency Medicine; Emergency Provider Emergency Medicine; PCP Family Medicine
DX: T56.892A Toxic effect of other metals, intentional self-harm, initial encounter (principal); F32.9 Major depressive disorder, single episode, unspecified; R45.851 Suicidal ideations
CPT/HCPCS: 80053; 80076; 80307; 96360; 96361; 99285; 80178; 80320; 80329; 85025; 99284; J3490

== ENCOUNTER 2018-08-09 15:59 | Emergency (ER) | payer MEDICAID, SELFPAY ==
[2018-08-09 16:05] VITALS: BP 119/75; PULSE 85; RESP 16; TEMP 36.7; O2SAT 100
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
[2018-08-09] MEDS: LORazepam 1 MG TAB PO (16:30)
[2018-08-09 16:42] LABS: Bilirubin Negative (Negative); Blood Negative (Negative); Clarity Clear; Glucose Negative (Negative); Ketones Negative (Negative); Leukocyte Esterase Negative (Negative); Nitrite Negative (Negative); Urobilinogen 0.2 EU/dL (Up TO 0.2)
[2018-08-09 16:52] LABS: *AMPHETAMINES SCREEN URINE Negative (Negative); *BARBITURATES SCREEN URINE Negative (Negative); *BENZODIAZEPINES SCREEN URINE Negative (Negative); Cannabinoids THC Negative (Negative); Cocaine Screen,Urine Negative (Negative); METHADONE URINE SCREEN Negative (Negative); OPIATES URINE SCREEN Negative (Negative)
[2018-08-09 16:55] LABS: Tricyclic Antidepressants Negative (Negative)
[2018-08-09 16:57] LABS: Abs Immature Grans 0.01 k/cumm (0.0-0.09); Absolute Basophil Count 0.04 k/cumm (0.0-0.2); Absolute Eosinophil Count 0.34 k/cumm (0.0-0.7); Absolute Lymphocyte Count 1.81 k/cumm (1.2-3.4); Absolute Monocyte Count 0.44 k/cumm (0.11-0.7); Absolute Neutrophil Count 5.24 k/cumm (1.2-6.7); Basophils % 0.5; Eosinophils % 4.3; HCT 37.5 % (36.0-46.0); HGB 12.5 g/dL (12.0-15.5); Immature Grans % 0.1; Mean Corp. HGB Concentration 33.3 g/dL (32.0-36.0); Mean Corpuscular Hemoglobin 29.3 pg (27.0-33.0); Mean Corpuscular Volume 87.8 fL (80-95); Mean Platelet Volume 10.5 fL (8.0-11.0); Monocytes % 5.6; Neutrophils % 66.5; Platelet Count 307 x1000/uL (130-400); RBC 4.27 m/cumm (4.00-5.20); RBC Distribution Width 12.8 % (11.7-14.6); White Blood Cell Count 7.88 k/cumm (4.4-10.8)
[2018-08-09 17:19] LABS: ALT 40 U/L (12-78); AST 21 U/L (15-37); Albumin 4.1 g/dL (3.4-5.0); Alkaline Phosphatase 88 U/L (46-116); Anion Gap 7.2 mmol/L (3-11); BUN 11 mg/dL (7-18); Bilirubin, Total 0.4 mg/dL (0.2-1.0); CO2 28.8 mmol/L (21.0-32.0); CREATININE 0.71 mg/dL (0.55-1.02); Chloride 102 mmol/L (98-107); Glucose 126 mg/dL (70-100); Potassium 3.5 mmol/L (3.5-5.1); Sodium 138 mmol/L (136-145); TSH 1.24 uIU/mL (0.358-3.74)
[2018-08-09 17:23] LABS: ETHANOL BLOOD < 3.0 mg/dL (<3)
[2018-08-09 17:24] LABS: Salicylate < 2.8 mg/dL (2.8-20.0)
[2018-08-09 17:26] LABS: Acetaminophen < 2 ug/mL (10-30)
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
== END 2018-08-09 19:18 | disposition home or self-care (01) ==
LOC: ER 19:21
PROVIDERS: Emergency Provider Physician Assistant; PCP Family Medicine
DX: F41.9 Anxiety disorder, unspecified (principal); R45.851 Suicidal ideations
CPT/HCPCS: 36415; 80053; 80307; 81025; 99285; 80320; 80329; 81003; 84443; 85025; 99284

== ENCOUNTER 2018-08-11 20:56 | Emergency (ER) | payer MEDICAID, SELFPAY ==
[2018-08-11 21:02] VITALS: BP 104/63; PULSE 78; RESP 18; TEMP 36.8; O2SAT 96
--- NOTE | 2018-08-11 21:36 | PDOC.MHCN ---
Date of service: 08/11/18 Time of Service: 21:45 Mental Health Crisis Note Presenting Issue How did you arrive at the ED and why did you come: Patient identifies as mail arrived in ER with his sister. He is still having constaqnt escaliating suicidal thoughts. Precipitating Factors this is the third ER visit since 08/03. Patient has been battling suicidal thoughts for quite some time. He has been hospitalized twice in April and overdosed on lithium a week ago. There is no evidence of delusions or hallucinations. He has constant thoughts of suicide and cutting. Disposition BEHAVIOR: His behavior is tearful and depressed. EYE CONTACT: He makes occasional eye contact. MOOD: His mood is depressed. AFFECT: His affect is flat. Speech is slow and softspoken. APPETITE: reports good appetite. SLEEP(trouble falling/staying asleep: no trouble falling/staying asleep Plan Patient has been in the hospital three times in the last two weeks and has beeb unable to eliminate or lessen symptoms of depression and suicidal ideation.
[2018-08-11 21:40] LABS: Abs Immature Grans 0.01 k/cumm (0.0-0.09); Absolute Basophil Count 0.06 k/cumm (0.0-0.2); Absolute Eosinophil Count 0.21 k/cumm (0.0-0.7); Absolute Lymphocyte Count 2.66 k/cumm (1.2-3.4); Absolute Monocyte Count 0.49 k/cumm (0.11-0.7); Basophils % 0.8; Eosinophils % 2.9; HCT 36.4 % (36.0-46.0); HGB 12.3 g/dL (12.0-15.5); Immature Grans % 0.1; Lymphocytes % 36.8; Mean Corp. HGB Concentration 33.8 g/dL (32.0-36.0); Mean Corpuscular Hemoglobin 29.7 pg (27.0-33.0); Mean Corpuscular Volume 87.9 fL (80-95); Mean Platelet Volume 10.9 fL (8.0-11.0); Monocytes % 6.8; Neutrophils % 52.6; Platelet Count 301 x1000/uL (130-400); RBC 4.14 m/cumm (4.00-5.20); RBC Distribution Width 12.6 % (11.7-14.6); White Blood Cell Count 7.23 k/cumm (4.4-10.8)
[2018-08-11 21:53] LABS: Anion Gap 12.1 mmol/L (3-11); BUN 17 mg/dL (7-18); CO2 24.9 mmol/L (21.0-32.0); CREATININE 0.76 mg/dL (0.55-1.02); Calcium 9.3 mg/dL (8.5-10.1); Chloride 103 mmol/L (98-107); Glucose 118 mg/dL (70-100); Potassium 3.5 mmol/L (3.5-5.1); Sodium 140 mmol/L (136-145)
[2018-08-11 21:56] LABS: *AMPHETAMINES SCREEN URINE Negative (Negative); *BARBITURATES SCREEN URINE Negative (Negative); *BENZODIAZEPINES SCREEN URINE Negative (Negative); Cannabinoids THC Negative (Negative); Cocaine Screen,Urine Negative (Negative); METHADONE URINE SCREEN Negative (Negative); OPIATES URINE SCREEN Negative (Negative); Tricyclic Antidepressants Negative (Negative)
--- NOTE | 2018-08-11 22:26 | ED.GENADUL_ITS ---
Discharge Plan Disposition Patient Disposition: [facility] INPATIENT Condition: Stable Discharge Details Chief Complaint: PsychEval Clinical Impression: Suicidal ideation, Major depressive disorder, recurrent episode, severe Primary Care Provider: Eric Singer ED Provider: Aide Torres Home Meds and New Rx's Prescriptions: No Action omeprazole 20 mg capsule,delayed release(DR/EC) 20 mg PO DAILY Qty: 30 RF: 1 promethazine 25 mg tablet 25 mg PO Q6H PRN (Reason: migraine headache) Qty: 20 RF: 0 albuterol sulfate [ProAir HFA] 8.5 GM HFA aerosol inhaler 2 puff Inhalation Q4H PRN Qty: 1 RF: 0 ondansetron HCl [Zofran] 8 MG tablet 8 mg PO TID Qty: 6 RF: 0 ipratropium-albuterol 3 ML solution for nebulization 3 ml Inhalation Q3H PRN Qty: 1 RF: 3 fluticasone [Flovent HFA] 120 PUFF HFA aerosol inhaler 2 puff Inhalation BID Qty: 1 RF: 2 magnesium hydroxide [Milk of Magnesia] 400 MG/5 ML suspension 30 ml PO PRN RF: 0 brexpiprazole 1 mg tablet 1 mg PO DAILY RF: 0 lorazepam [Ativan] 0.5 mg tablet 0.5 mg PO BID PRN (Reason: anxiety) RF: 0 Medical Decision Making 23-year-old female with a history of depression and anxiety with previous suicide attempts who presents with suicidal ideation with plan to cut herself. Patient was seen here 2 days ago for the same complaint and was discharged home after evaluated by mental health with plan for care bed. Care bed was not available today and patient return to the ER requesting inpatient hospitalization. Patient is medically cleared. Patient was evaluated by mental health and is recommending inpatient hospitalization. Paperwork has been sent to surrounding facilities but likely no placement tonight due to late hour. There is a sitter available on the floor. Plan will be for admission to the floor overnight for mental health and primary care sales representative to resume placement tomorrow. [id number] -- d/w hospitalist - accepts pt for admission. Medical Records Medical records reviewed: Yes I reviewed the patient's medical records. Lab Data Lab results reviewed: Yes I reviewed the patient's lab results. Laboratory Tests Range/Units 08/11/18 08/11/18 08/11/18 19:10 20:20 20:20 WBC (4.4-10.8) k/cumm 7.23 RBC (4.00-5.20) m/cumm 4.14 Hgb (12.0-15.5) g/dL 12.3 Hct (36.0-46.0) % 36.4 MCV (80-95) fL 87.9 MCH (27.0-33.0) pg 29.7 MCHC (32.0-36.0) g/dL 33.8 RDW (11.7-14.6) % 12.6 Plt Count (130-400) x1000/uL 301 MPV (8.0-11.0) fL 10.9 Immature Gran % 0.1 Neutrophils % 52.6 Lymphocytes % 36.8 Monocytes % 6.8 Eosinophils % 2.9 Basophils % 0.8 Absolute Neutrophils (1.2-6.7) k/cumm 3.80 Absolute Lymphocytes (1.2-3.4) k/cumm 2.66 Absolute Monocytes (0.11-0.7) k/cumm 0.49 Absolute Eosinophils (0.0-0.7) k/cumm 0.21 Absolute Basophils (0.0-0.2) k/cumm 0.06 Sodium (136-145) mmol/L 140 Potassium (3.5-5.1) mmol/L 3.5 Chloride (98-107) mmol/L 103 Carbon Dioxide (21.0-32.0) mmol/L 24.9 Anion Gap (3-11) mmol/L 12.1 H BUN (7-18) mg/dL 17 D Creatinine (0.55-1.02) mg/dL 0.76 Estimated GFR/1.73 m2 (mL/min/1.73m2) >= 60.00 Glucose (70-100) mg/dL 118 H Calcium (8.5-10.1) mg/dL 9.3 Urine Opiates Screen (Negative) Negative Urine Methadone Screen (Negative) Negative Ur Barbiturates Screen (Negative) Negative Ur Tricyclics Screen (Negative) Negative Ur Amphetamines Screen (Negative) Negative U Benzodiazepines Scrn (Negative) Negative Urine Cocaine Screen (Negative) Negative Ur THC Screen (Negative) Negative Ethyl Alcohol (<3) mg/dL < 3.0 test negative HPI General Mode of arrival: ambulatory . Date/Time Provider Initiated Documentation: 08/11/18 20:57 . Limitations to Documentation: no limitations . Information obtained by: patient . HPI Narrative: Pt is a 23yo F who presents to the ED w/ feeling suicidal for the past few days. Patient states she has a plan to cut herself. Pt was seen here 2 days ago for suicidal ideation and was discharged home after mental health evaluation after family did not want inpatient hospitalization and rather care bed was planned for today. Patient return to the ER today because no care bed was available. Patient is now requesting inpatient hospitalization. Patient was also seen her in the last couple weeks for suicide attempt in which she overdosed on her lithium. She has other previous suicide attempts in which she overdosed on meds and cut her wrists. Patient currently denies any alcohol or drug use. She denies any hallucinations. She denies any homicidal ideation. Related Data Home Medications Medication Instructions Recorded Confirmed albuterol sulfate [ProAir HFA] 2 puff INHALATION Q4H PRN #1 05/07/16 08/11/18 inhaler ondansetron HCl [Zofran] 8 mg PO TID #6 tab-cap 07/03/16 08/11/18 ipratropium-albuterol 3 ml INHALATION Q3H PRN #1 box 08/09/17 08/11/18 fluticasone [Flovent HFA] 2 puff INHALATION BID #1 inh 08/12/17 08/11/18 magnesium hydroxide [Milk of 30 ml PO PRN ml 05/07/18 08/11/18 Magnesia] promethazine 25 mg tablet 25 mg PO Q6H PRN #20 tab 07/22/18 08/11/18 brexpiprazole 1 mg tablet 1 mg PO DAILY 08/05/18 08/11/18 lorazepam 0.5 mg tablet 0.5 mg PO BID PRN 08/05/18 08/11/18 omeprazole 20 mg capsule,delayed 20 mg PO DAILY #30 cap 08/05/18 08/11/18 release Previous Rx's Medication Instructions Recorded ipratropium-albuterol 3 ml INHALATION Q3H PRN #1 box 08/09/17 fluticasone [Flovent HFA] 2 puff INHALATION BID #1 inh 08/12/17 promethazine 25 mg tablet 25 mg PO Q6H PRN #20 tab 07/22/18 omeprazole 20 mg capsule,delayed 20 mg PO DAILY #30 cap 08/05/18 release Allergies Allergy/AdvReac Type Severity Reaction Status Date / Time citalopram AdvReac Intermediate insomnia Verified 08/09/18 16:10 ultrasound gel Allergy Intermediate Itching Uncoded 08/09/18 16:10 General Stated Complaint: PsychEval CONOR: 2 Review of Systems Review of Systems All systems reviewed & are unremarkable except as noted in HPI and below Constitutional Reports as per HPI, Denies chills and Denies fever(s) Eyes Denies blurry vision ENT Denies dizziness, Denies sore throat and Denies throat swelling Cardiovascular Denies chest pain and Denies dyspnea Respiratory Denies dyspnea Gastrointestinal Denies abdominal pain, Denies diarrhea and Denies vomiting Genitourinary Denies hematuria and Denies dysuria Musculoskeletal Denies back pain and Denies numbness Integumentary/Breasts Denies lesions and Denies rash Neurologic Denies dizziness and Denies numbness Psychiatric Reports depression and Reports suicidal ideation Allergic/Immunologic Denies throat swelling PFSH Allergic rhinitis Alopecia (capitis) totalis Asthma Atopic dermatitis Migraine Urinary tract infection Family History Mother Obstructive sleep apnea syndrome Father Esophageal stricture Sister Mental disorder Sister No problems noted. Brother No problems noted. Brother Asthma Family History Mother Obstructive sleep apnea syndrome Father Esophageal stricture Sister Mental disorder Sister No problems noted. Brother No problems noted. Brother Asthma Medical History Allergic rhinitis Alopecia (capitis) totalis Asthma Atopic dermatitis Migraine Urinary tract infection Social History frequency: daily Smoking/Tobacco Use Status: Never alcohol intake: never substance use type: does not use seatbelt use: always Social History frequency: daily Smoking/Tobacco Use Status: Never alcohol intake: never substance use type: does not use seatbelt use: always Exam Const General: cooperative and healthy appearing Orientation: alert and awake HENMT Head: normal to inspection Ears: hearing grossly normal bilaterally and external ears normal General nose exam: external nose normal Face and sinus: normal facial exam Eyes General: appearance normal, both eyes and all related structures Eyelids: eyelids normal EOM: EOM intact bilaterally Neck Neck: normal visual inspection Lymphatic: no lymphadenopathy noted Chest Chest: normal inspection of the chest Resp Effort & Inspection: normal respiratory effort and able to speak in complete sentences Auscultation: clear to auscultation bilaterally Cardio Rate: regular rate Rhythm: regular rhythm GI Inspection: normal to inspection Palpation: soft, not firm, no guarding, no hepatosplenomegaly, no masses and nontender Auscultation: normal bowel sounds Skin Wounds: wounds noted (multiple superficial linear lacerations noted to R lower leg, no signs of infection. ) Neuro General: alert and awake Cognition: normal cognition Speech: speech normal Gait: normal gait Motor: muscle tone normal throughout Sensory Exam: no sensory deficits noted Extrem General: normal to inspection, full ROM and normal capillary refill Psych Appearance: grossly normal Mental Status: mental status grossly normal Speech and Movement: speech and movement normal Affect: blunted Thought Process: normal Course Vital Signs Temperature 98.2 F 08/11/18 21:02 Pulse 78 08/11/18 21:02 Respiratory Rate 18 08/11/18 21:02 Blood Pressure 104/63 08/11/18 21:02 Pulse Oximetry 96 08/11/18 21:02 Temperature 98.2 F 08/11/18 21:02 Temperature Source Skin 08/11/18 21:02 Pulse 78 08/11/18 21:02 Respiratory Rate 18 08/11/18 21:02 Respiratory Effort Non-Labored 08/11/18 21:05 Blood Pressure 104/63 08/11/18 21:02 Blood Pressure Position Sitting 08/11/18 21:02 Pulse Oximetry 96 08/11/18 21:02 Oxygen Delivery Method Room Air 08/11/18 21:02 Oxygen Flow Rate 0 08/11/18 21:02 Pain Level 0 08/11/18 21:02 Lab/Test Results Lab/Test Results: Laboratory Tests Range/Units 08/11/18 08/11/18 08/11/18 19:10 20:20 20:20 WBC (4.4-10.8) k/cumm 7.23 RBC (4.00-5.20) m/cumm 4.14 Hgb (12.0-15.5) g/dL 12.3 Hct (36.0-46.0) % 36.4 MCV (80-95) fL 87.9 MCH (27.0-33.0) pg 29.7 MCHC (32.0-36.0) g/dL 33.8 RDW (11.7-14.6) % 12.6 Plt Count (130-400) x1000/uL 301 MPV (8.0-11.0) fL 10.9 Immature Gran % 0.1 Neutrophils % 52.6 Lymphocytes % 36.8 Monocytes % 6.8 Eosinophils % 2.9 Basophils % 0.8 Absolute Neutrophils (1.2-6.7) k/cumm 3.80 Absolute Lymphocytes (1.2-3.4) k/cumm 2.66 Absolute Monocytes (0.11-0.7) k/cumm 0.49 Absolute Eosinophils (0.0-0.7) k/cumm 0.21 Absolute Basophils (0.0-0.2) k/cumm 0.06 Sodium (136-145) mmol/L 140 Potassium (3.5-5.1) mmol/L 3.5 Chloride (98-107) mmol/L 103 Carbon Dioxide (21.0-32.0) mmol/L 24.9 Anion Gap (3-11) mmol/L 12.1 H BUN (7-18) mg/dL 17 D Creatinine (0.55-1.02) mg/dL 0.76 Estimated GFR/1.73 m2 (mL/min/1.73m2) >= 60.00 Glucose (70-100) mg/dL 118 H Calcium (8.5-10.1) mg/dL 9.3 Urine Opiates Screen (Negative) Negative Urine Methadone Screen (Negative) Negative Ur Barbiturates Screen (Negative) Negative Ur Tricyclics Screen (Negative) Negative Ur Amphetamines Screen (Negative) Negative U Benzodiazepines Scrn (Negative) Negative Urine Cocaine Screen (Negative) Negative Ur THC Screen (Negative) Negative POC- Test(urine) Negative
[2018-08-11 22:41] LABS: ETHANOL BLOOD < 3.0 mg/dL (<3)
--- NOTE | 2018-08-11 23:12 | PDOC.ERCMPRO ---
- If Service Date Differs Date of service: 08/11/18 Time of Service: 23:12 Care Management Progress Note Brief Narrative: Tanvi Navarrete' arrived to the [facility] ER this evening escorted by her sister via private vehicle. Heath has a PMH of Major depressive disorder, BPD, Panic disorder, and Gender dysphoria. Tanvi identifies as a male and prefers to be called Heath, per SHIRA Orosco, Heath's parents have not been accepting of this. He sees Ana Luisa Quick and Ashly De Anda through [facility] for therapy and medication prescriptions. Recently Heath has gone through medication adjustments, and is on only a few medications at this time. Heath has a history of suicidal ideations, most recently he attempted suicide via a lithium overdose. Heath at this time reports that his plan would be to cut himself deeply. He does have some superficial cuts on his legs per MD report. Heath at baseline resides with his parents, siblings, and his two year old daughter whom his parents are caring for at this time. VOLUNTARY FOR INPATIENT PSYCHIATRIC STABILIZATION. Current behaviors: Heath has been cooperative since being in the emergency department. He was tearful upon arrival, and has been resting quietly since he came to the ER. At this time Heath is sleeping, he has been accepted on the medical/surgical unit and will transition to that unit until placement is facilitated in a psychiatric facility. Huddle Participants:SHIRA Orosco, Bernarda, YASIR, YASIR Nevarez CC, Lorna Sullivan, CM. Time and Date: 08/11/18 @ 2320 Safety plan has been established with patient, and care team, to adhere to patient goals, identify restrictions based on behavioral status, address nutrition, and determine allowed personal belongings, tools for hygiene and personal care. Determine level of activity including ambulation, level of supervision, visitors, and determine privileges based on behaviors and level of engagement by pt. SAFETY PLAN: 1. Will remain on suicide precautions and in paper clothes. 2. Will remain in room under direct supervision of one-on-one staff at all times provided by UBALDO, CECE capsule machine operator. 3. May have paper cups, plates, finger foods. No metal spoon at this time 4. Follow [facility] Management of the Admitted Behavioral Health Patient policy. 5. Comfort bath system only, to reevaluate. 6. No personal belongings 7. Visitors - None at this time - to reevaluate. 8. Activities - may watch TV and have remote privileges. May have access to crayons and paper Placement Update: Referrals have been faxed to [facility] and [facility] this evening. [facility] [facility], and [facility] are reporting no beds available per SHIRA Orosco. Patient is currently voluntarily at [facility] and seeking inpatient admission when a bed becomes available. [facility] Frontline Convention Worker will continue seeking placement. Please contact the Crusher Loader Equipment Operator Buttermaker ([phone]) and [facility] Convention Worker ([phone]) for any needed changes in the Safety Plan. Safety plan has been provided to interdepartmental care team including Clinical Coordinator, Nursing Technical Programs Manager.
--- NOTE | 2018-08-11 23:39 | CMPROGNOTE_ITS ---
- If Service Date Differs Date of service: 08/11/18 Time of Service: 23:12 Care Management Progress Note Brief Narrative: Tanvi Navarrete' arrived to the [facility] ER this evening escorted by her sister via private vehicle. Heath has a PMH of Major depressive disorder, BPD, Panic disorder, and Gender dysphoria. Tanvi identifies as a male and prefers to be called Heath, per SHIRA Orosco, Heath's parents have not been accepting of this. He sees Ana Luisa Quick and sAhly De Anda through [facility] for therapy and medication prescriptions. Recently Heath has gone through medication adjustments, and is on only a few medications at this time. Heath has a history of suicidal ideations, most recently he attempted suicide via a lithium overdose. Heath at this time reports that his plan would be to cut himself deeply. He does have some superficial cuts on his legs per MD report. Heath at baseline resides with his parents, siblings, and his two year old daughter whom his parents are caring for at this time. VOLUNTARY FOR INPATIENT PSYCHIATRIC STABILIZATION. Current behaviors: Heath has been cooperative since being in the emergency department. He was tearful upon arrival, and has been resting quietly since he came to the ER. At this time Heath is sleeping, he has been accepted on the medical/surgical unit and will transition to that unit until placement is facilitated in a psychiatric facility. Huddle Participants:SHIRA Orosco, Bernarda, YASIR, YASIR Nevarez CC, Lorna Sullivan, CM. Time and Date: 08/11/18 @ 2320 Safety plan has been established with patient, and care team, to adhere to patient goals, identify restrictions based on behavioral status, address nutrition, and determine allowed personal belongings, tools for hygiene and personal care. Determine level of activity including ambulation, level of supervision, visitors, and determine privileges based on behaviors and level of engagement by pt. SAFETY PLAN: 1. Will remain on suicide precautions and in paper clothes. 2. Will remain in room under direct supervision of one-on-one staff at all times provided by UBALDO, CECE video control operator. 3. May have paper cups, plates, finger foods. No metal spoon at this time 4. Follow [facility] Management of the Admitted Behavioral Health Patient policy. 5. Comfort bath system only, to reevaluate. 6. No personal belongings 7. Visitors - None at this time - to reevaluate. 8. Activities - may watch TV and have remote privileges. May have access to crayons and paper Placement Update: Referrals have been faxed to [facility] this evening. [facility], [facility], [place] [facility] are [place] no beds available per SHIRA Orosco. Patient is currently voluntarily at [facility] and seeking inpatient admission when a bed becomes available. [facility] Frontline Nuclear Equipment Research Engineer will continue seeking placement. Please contact the Marketing Project Manager Retail Parts Pro ([phone]) and [facility] Nuclear Equipment Research Engineer ([phone]) for any needed changes in the Safety Plan. Safety plan has been provided to interdepartmental care team including Clinical Coordinator, Nursing Sand Technologist.
--- NOTE | 2018-08-12 00:12 | W.PM.HP.N ---
Date of service: 08/12/18 Time of Service: 00:12 Assessment and Plan (1) Suicidal ideation: Current visit: No Status: Acute patient was transferred from [facility] emergency department to [facility] psychiatric facility without ever being admitted to [facility]. I never examined the patient and therefore my history and physical examination report is incomplete and no charges should be attached to this document. (2) Major depressive disorder, recurrent episode, severe: Current visit: No Status: Acute History of Present Illness Chief Complaint: Depression, Suicidal ideation Narrative: See emergency room notes for details. 23-year-old female with history of depression and anxiety, bipolar disorder, panic disorder, gender dysphoria (Identifies herself as a male named Heath) with previous suicide attempts including recent lithium overdose and was just here in the emergency room 2 days ago with suicidal ideation and had been cutting herself with self induced lacerations over her right L left forearms. Patient was evaluated by mental health worker at that time and they did come up with a care plan that would include short-term admission to a local care bed in the local mental health facility. However because no bed was available they opted to contract with the patient for her safety while awaiting a care bed. When no bed became available she re-presented to the emergency department with concerns from her mother that patient can no longer be Safe at home. manager post, Lorna Gonzales along with Dr. Aide Torres and a mental health bingo worker Ana Luisa Jolly came up with the plan for the patient to be admitted to the medical/surgical unit at [facility] until transitioned to a psychiatric facility. PFSH Allergic rhinitis Alopecia (capitis) totalis Asthma Atopic dermatitis Migraine Urinary tract infection Family History Mother Obstructive sleep apnea syndrome Father Esophageal stricture Sister Mental disorder Sister No problems noted. Brother No problems noted. Brother Asthma Family History Mother Obstructive sleep apnea syndrome Father Esophageal stricture Sister Mental disorder Sister No problems noted. Brother No problems noted. Brother Asthma Medical History Allergic rhinitis Alopecia (capitis) totalis Asthma Atopic dermatitis Migraine Urinary tract infection Social History frequency: daily Smoking/Tobacco Use Status: Never alcohol intake: never substance use type: does not use seatbelt use: always Social History frequency: daily Smoking/Tobacco Use Status: Never alcohol intake: never substance use type: does not use seatbelt use: always Meds Home Medications Medication Instructions Recorded Confirmed Type albuterol sulfate [ProAir HFA] 2 puff INHALATION Q4H PRN #1 05/07/16 08/11/18 History inhaler ondansetron HCl [Zofran] 8 mg PO TID #6 tab-cap 07/03/16 08/11/18 History ipratropium-albuterol 3 ml INHALATION Q3H PRN #1 box 08/09/17 08/11/18 Rx fluticasone [Flovent HFA] 2 puff INHALATION BID #1 inh 08/12/17 08/11/18 Rx magnesium hydroxide [Milk of 30 ml PO PRN ml 05/07/18 08/11/18 History Magnesia] promethazine 25 mg tablet 25 mg PO Q6H PRN #20 tab 07/22/18 08/11/18 Rx brexpiprazole 1 mg tablet 1 mg PO DAILY 08/05/18 08/11/18 History lorazepam 0.5 mg tablet 0.5 mg PO BID PRN 08/05/18 08/11/18 History omeprazole 20 mg capsule,delayed 20 mg PO DAILY #30 cap 08/05/18 08/11/18 Rx release Allergies Allergy/AdvReac Type Severity Reaction Status Date / Time citalopram AdvReac Intermediate insomnia Verified 08/09/18 16:10 ultrasound gel Allergy Intermediate Itching Uncoded 08/09/18 16:10 Results Labs : 08/11/18 20:20 08/11/18 20:20 Laboratory Results - last 24 hr 08/11/18 08/11/18 08/11/18 19:10 20:20 20:20 WBC 7.23 RBC 4.14 Hgb 12.3 Hct 36.4 MCV 87.9 MCH 29.7 MCHC 33.8 RDW 12.6 Plt Count 301 MPV 10.9 Immature Gran % 0.1 Neutrophils % 52.6 Lymphocytes % 36.8 Monocytes % 6.8 Eosinophils % 2.9 Basophils % 0.8 Absolute Neutrophils 3.80 Absolute Lymphocytes 2.66 Absolute Monocytes 0.49 Absolute Eosinophils 0.21 Absolute Basophils 0.06 Sodium 140 Potassium 3.5 Chloride 103 Carbon Dioxide 24.9 Anion Gap 12.1 H BUN 17 D Creatinine 0.76 Estimated GFR/1.73 m2 >= 60.00 Glucose 118 H Calcium 9.3 Urine Opiates Screen Negative Urine Methadone Screen Negative Ur Barbiturates Screen Negative Ur Tricyclics Screen Negative Ur Amphetamines Screen Negative U Benzodiazepines Scrn Negative Urine Cocaine Screen Negative Ur THC Screen Negative Ethyl Alcohol < 3.0 Last Vital Signs Temp 36.8 C 08/11/18 21:02 Pulse 78 08/11/18 21:02 Resp 18 08/11/18 21:02 BP 104/63 08/11/18 21:02 Pulse Ox 96 08/11/18 21:02
--- NOTE | 2018-08-12 00:16 | HPE_ITS ---
Date of service: 08/12/18 Time of Service: 00:12 Assessment and Plan (1) Suicidal ideation: Current visit: No Status: Acute patient was transferred from [facility] emergency department to [facility] psychiatric facility without ever being admitted to [facility]. I never examined the patient and therefore my history and physical examination report is incomplete and no charges should be attached to this document. (2) Major depressive disorder, recurrent episode, severe: Current visit: No Status: Acute History of Present Illness Chief Complaint: Depression, Suicidal ideation Narrative: See emergency room notes for details. 23-year-old female with history of depression and anxiety, bipolar disorder, panic disorder, gender dysphoria (Identifies herself as a male named Heath) with previous suicide attempts including recent lithium overdose and was just here in the emergency room 2 days ago with suicidal ideation and had been cutting herself with self induced lacerations over her right L left forearms. Patient was evaluated by mental health worker at that time and they did come up with a care plan that would include short-term admission to a local care bed in the local mental health facility. However because no bed was available they opted to contract with the patient for her safety while awaiting a care bed. When no bed became available she re-presented to the emergency department with concerns from her mother that patient can no longer be Safe at home. publicity manager, Lorna Gonzales along with Dr. Aide Torres and a mental health research worker encyclopedia Ana Luisa Jolly came up with the plan for the patient to be admitted to the medical/ surgical unit at [facility] until transitioned to a psychiatric facility. PFSH Allergic rhinitis Alopecia (capitis) totalis Asthma Atopic dermatitis Migraine Urinary tract infection Family History Mother Obstructive sleep apnea syndrome Father Esophageal stricture Sister Mental disorder Sister No problems noted. Brother No problems noted. Brother Asthma Family History Mother Obstructive sleep apnea syndrome Father Esophageal stricture Sister Mental disorder Sister No problems noted. Brother No problems noted. Brother Asthma Medical History Allergic rhinitis Alopecia (capitis) totalis Asthma Atopic dermatitis Migraine Urinary tract infection Social History frequency: daily Smoking/Tobacco Use Status: Never alcohol intake: never substance use type: does not use seatbelt use: always Social History frequency: daily Smoking/Tobacco Use Status: Never alcohol intake: never substance use type: does not use seatbelt use: always Meds Home Medications Medication Instructions Recorded Confirmed Type albuterol sulfate [ProAir HFA] 2 puff INHALATION Q4H PRN #1 05/07/16 08/11/18 History inhaler ondansetron HCl [Zofran] 8 mg PO TID #6 tab-cap 07/03/16 08/11/18 History ipratropium-albuterol 3 ml INHALATION Q3H PRN #1 box 08/09/17 08/11/18 Rx fluticasone [Flovent HFA] 2 puff INHALATION BID #1 inh 08/12/17 08/11/18 Rx magnesium hydroxide [Milk of 30 ml PO PRN ml 05/07/18 08/11/18 History Magnesia] promethazine 25 mg tablet 25 mg PO Q6H PRN #20 tab 07/22/18 08/11/18 Rx brexpiprazole 1 mg tablet 1 mg PO DAILY 08/05/18 08/11/18 History lorazepam 0.5 mg tablet 0.5 mg PO BID PRN 08/05/18 08/11/18 History omeprazole 20 mg capsule,delayed 20 mg PO DAILY #30 cap 08/05/18 08/11/18 Rx release Allergies Allergy/AdvReac Type Severity Reaction Status Date / Time citalopram AdvReac Intermediate insomnia Verified 08/09/18 16:10 ultrasound gel Allergy Intermediate Itching Uncoded 08/09/18 16:10 Results Labs : 08/11/18 20:20 08/11/18 20:20 Laboratory Results - last 24 hr 08/11/18 08/11/18 08/11/18 19:10 20:20 20:20 WBC 7.23 RBC 4.14 Hgb 12.3 Hct 36.4 MCV 87.9 MCH 29.7 MCHC 33.8 RDW 12.6 Plt Count 301 MPV 10.9 Immature Gran % 0.1 Neutrophils % 52.6 Lymphocytes % 36.8 Monocytes % 6.8 Eosinophils % 2.9 Basophils % 0.8 Absolute Neutrophils 3.80 Absolute Lymphocytes 2.66 Absolute Monocytes 0.49 Absolute Eosinophils 0.21 Absolute Basophils 0.06 Sodium 140 Potassium 3.5 Chloride 103 Carbon Dioxide 24.9 Anion Gap 12.1 H BUN 17 D Creatinine 0.76 Estimated GFR/1.73 m2 >= 60.00 Glucose 118 H Calcium 9.3 Urine Opiates Screen Negative Urine Methadone Screen Negative Ur Barbiturates Screen Negative Ur Tricyclics Screen Negative Ur Amphetamines Screen Negative U Benzodiazepines Scrn Negative Urine Cocaine Screen Negative Ur THC Screen Negative Ethyl Alcohol < 3.0 Last Vital Signs Temp 36.8 C 08/11/18 21:02 Pulse 78 08/11/18 21:02 Resp 18 08/11/18 21:02 BP 104/63 08/11/18 21:02 Pulse Ox 96 08/11/18 21:02
--- NOTE | 2018-08-12 00:49 | ED.GENADUL_ITS ---
Discharge Plan Disposition Patient Disposition: [facility] Condition: Stable Discharge Details Chief Complaint: PsychEval Clinical Impression: Suicidal ideation, Major depressive disorder, recurrent episode, severe Primary Care Provider: Eric Singer ED Provider: Jalen Raymond Home Meds and New Rx's Prescriptions: No Action omeprazole 20 mg capsule,delayed release(DR/EC) 20 mg PO DAILY Qty: 30 RF: 1 promethazine 25 mg tablet 25 mg PO Q6H PRN (Reason: migraine headache) Qty: 20 RF: 0 albuterol sulfate [ProAir HFA] 8.5 GM HFA aerosol inhaler 2 puff Inhalation Q4H PRN Qty: 1 RF: 0 ondansetron HCl [Zofran] 8 MG tablet 8 mg PO TID Qty: 6 RF: 0 ipratropium-albuterol 3 ML solution for nebulization 3 ml Inhalation Q3H PRN Qty: 1 RF: 3 fluticasone [Flovent HFA] 120 PUFF HFA aerosol inhaler 2 puff Inhalation BID Qty: 1 RF: 2 magnesium hydroxide [Milk of Magnesia] 400 MG/5 ML suspension 30 ml PO PRN RF: 0 brexpiprazole 1 mg tablet 1 mg PO DAILY RF: 0 lorazepam [Ativan] 0.5 mg tablet 0.5 mg PO BID PRN (Reason: anxiety) RF: 0 Medical Decision Making Patient had been admitted to inpatient holding bed by Dr Torres. Please see her note regarding details of presentation. Patient subsequently accepted in transfer to [place], with request for ambulance, which was discussed with care management. Patient transferred to service of Dr. Tanvi Bill [facility] General Mode of arrival: ambulatory . Date/Time Provider Initiated Documentation: 08/11/18 20:57 . Limitations to Documentation: no limitations . Information obtained by: patient . Related Data Home Medications Medication Instructions Recorded Confirmed albuterol sulfate [ProAir HFA] 2 puff INHALATION Q4H PRN #1 05/07/16 08/11/18 inhaler ondansetron HCl [Zofran] 8 mg PO TID #6 tab-cap 07/03/16 08/11/18 ipratropium-albuterol 3 ml INHALATION Q3H PRN #1 box 08/09/17 08/11/18 fluticasone [Flovent HFA] 2 puff INHALATION BID #1 inh 08/12/17 08/11/18 magnesium hydroxide [Milk of 30 ml PO PRN ml 05/07/18 08/11/18 Magnesia] promethazine 25 mg tablet 25 mg PO Q6H PRN #20 tab 07/22/18 08/11/18 brexpiprazole 1 mg tablet 1 mg PO DAILY 08/05/18 08/11/18 lorazepam 0.5 mg tablet 0.5 mg PO BID PRN 08/05/18 08/11/18 omeprazole 20 mg capsule,delayed 20 mg PO DAILY #30 cap 08/05/18 08/11/18 release Previous Rx's Medication Instructions Recorded ipratropium-albuterol 3 ml INHALATION Q3H PRN #1 box 08/09/17 fluticasone [Flovent HFA] 2 puff INHALATION BID #1 inh 08/12/17 promethazine 25 mg tablet 25 mg PO Q6H PRN #20 tab 07/22/18 omeprazole 20 mg capsule,delayed 20 mg PO DAILY #30 cap 08/05/18 release Allergies Allergy/AdvReac Type Severity Reaction Status Date / Time citalopram AdvReac Intermediate insomnia Verified 08/09/18 16:10 ultrasound gel Allergy Intermediate Itching Uncoded 08/09/18 16:10 General Stated Complaint: PsychEval CONOR: 2 PFSH Allergic rhinitis Alopecia (capitis) totalis Asthma Atopic dermatitis Migraine Urinary tract infection Family History Mother Obstructive sleep apnea syndrome Father Esophageal stricture Sister Mental disorder Sister No problems noted. Brother No problems noted. Brother Asthma Family History Mother Obstructive sleep apnea syndrome Father Esophageal stricture Sister Mental disorder Sister No problems noted. Brother No problems noted. Brother Asthma Medical History Allergic rhinitis Alopecia (capitis) totalis Asthma Atopic dermatitis Migraine Urinary tract infection Social History frequency: daily Smoking/Tobacco Use Status: Never alcohol intake: never substance use type: does not use seatbelt use: always Social History frequency: daily Smoking/Tobacco Use Status: Never alcohol intake: never substance use type: does not use seatbelt use: always Course Vital Signs Temperature 36.8 C 08/11/18 21:02 Pulse 78 08/11/18 21:02 Respiratory Rate 18 08/11/18 21:02 Blood Pressure 104/63 08/11/18 21:02 Pulse Oximetry 96 08/11/18 21:02 Temperature 36.8 C 08/11/18 21:02 Temperature Source Skin 08/11/18 21:02 Pulse 78 08/11/18 21:02 Respiratory Rate 18 08/11/18 21:02 Respiratory Effort Non-Labored 08/11/18 21:05 Blood Pressure 104/63 08/11/18 21:02 Blood Pressure Position Sitting 08/11/18 21:02 Pulse Oximetry 96 08/11/18 21:02 Oxygen Delivery Method Room Air 08/11/18 21:02 Oxygen Flow Rate 0 08/11/18 21:02 Pain Level 0 08/11/18 21:02 Lab/Test Results Lab/Test Results: Laboratory Tests Range/Units 08/11/18 08/11/18 08/11/18 19:10 20:20 20:20 WBC (4.4-10.8) k/cumm 7.23 RBC (4.00-5.20) m/cumm 4.14 Hgb (12.0-15.5) g/dL 12.3 Hct (36.0-46.0) % 36.4 MCV (80-95) fL 87.9 MCH (27.0-33.0) pg 29.7 MCHC (32.0-36.0) g/dL 33.8 RDW (11.7-14.6) % 12.6 Plt Count (130-400) x1000/uL 301 MPV (8.0-11.0) fL 10.9 Immature Gran % 0.1 Neutrophils % 52.6 Lymphocytes % 36.8 Monocytes % 6.8 Eosinophils % 2.9 Basophils % 0.8 Absolute Neutrophils (1.2-6.7) k/cumm 3.80 Absolute Lymphocytes (1.2-3.4) k/cumm 2.66 Absolute Monocytes (0.11-0.7) k/cumm 0.49 Absolute Eosinophils (0.0-0.7) k/cumm 0.21 Absolute Basophils (0.0-0.2) k/cumm 0.06 Sodium (136-145) mmol/L 140 Potassium (3.5-5.1) mmol/L 3.5 Chloride (98-107) mmol/L 103 Carbon Dioxide (21.0-32.0) mmol/L 24.9 Anion Gap (3-11) mmol/L 12.1 H BUN (7-18) mg/dL 17 D Creatinine (0.55-1.02) mg/dL 0.76 Estimated GFR/1.73 m2 (mL/min/1.73m2) >= 60.00 Glucose (70-100) mg/dL 118 H Calcium (8.5-10.1) mg/dL 9.3 Urine Opiates Screen (Negative) Negative Urine Methadone Screen (Negative) Negative Ur Barbiturates Screen (Negative) Negative Ur Tricyclics Screen (Negative) Negative Ur Amphetamines Screen (Negative) Negative U Benzodiazepines Scrn (Negative) Negative Urine Cocaine Screen (Negative) Negative Ur THC Screen (Negative) Negative Ethyl Alcohol (<3) mg/dL < 3.0 POC- Test(urine) Negative
--- NOTE | 2018-08-12 01:13 | NUR.NOTE ---
Nursing Note: Report called to Eliezer @ [facility]- they are requesting ambulance only transportation at this time. They are aware that we will attempt to locate transportation tonight, but state that they will hold the bed through tomorrow. Requesting a call back when patient transportation has been arranged.
--- NOTE | 2018-08-12 04:11 | NUR.NOTE ---
Nursing Note: Pt awake and requesting Trazodone for sleep. Trazodone is not on pt current medication list and recent clinic note states PCP suspected trazodone was causing orthostatic hypotension. Pt advised that this medication was not a current order for her, and that transportation would be arriving soon for [place]- pt agrees to try to get some rest now and discuss sleep medication options today during inpatient therapy.
[2018-08-12] MEDS: Omeprazole 20 MG CAPCR PO (08:49)
[2018-08-12] MEDS: Ondansetron O.D.T. 4 MG TABEF PO (08:49)
[2018-08-12 09:11] VITALS: BP 96/62; PULSE 71; RESP 16; TEMP 36.7; O2SAT 98
== END 2018-08-12 09:00 | disposition short-term general hospital (02) ==
PROVIDERS: Physician Assistant; Emergency Provider Emergency Medicine; PCP Family Medicine
DX: F33.2 Major depressive disorder, recurrent severe without psychotic features (principal); R45.851 Suicidal ideations; F41.8 Other specified anxiety disorders
CPT/HCPCS: 36415; 80048; 80307; 81025; 99285; NC; 80320; 85025; 99284

== ENCOUNTER 2019-02-01 11:15 | Emergency (ER) | payer MEDICAID, SELFPAY ==
[2019-02-01 11:26] VITALS: BP 126/80; PULSE 92; RESP 16; TEMP 36.8; O2SAT 97
--- NOTE | 2019-02-01 13:18 | ED.GENADUL_ITS ---
Discharge Plan Disposition Patient Disposition: HOME Condition: Stable Discharge Details Chief Complaint: Allergic Clinical Impression: Side effect of medication Primary Care Provider: Eric Singer ED Provider: Zhen Lopez Home Meds and New Rx's Prescriptions: Continued albuterol sulfate [ProAir HFA] 8.5 GM HFA aerosol inhaler 2 puff Inhalation Q4H PRN Qty: 1 RF: 0 ondansetron HCl [Zofran] 8 MG tablet 8 mg PO TID Qty: 6 RF: 0 ipratropium-albuterol 3 ML solution for nebulization 3 ml Inhalation Q3H PRN Qty: 1 RF: 3 Flovent HFA 120 PUFF HFA aerosol inhaler 2 puff Inhalation BID Qty: 1 RF: 2 sumatriptan succinate 50 mg tablet 50 mg PO Q2H PRNRF: 0 Discontinued mirtazapine 15 mg tablet 7.5 mg PO HS RF: 0 Discharge Instructions Instructions: Bipolar Disorder (ED) Additional Instructions: Return immediately to the emergency department for any new or significant worsening symptoms, worsening jerry, suicidal ideations or any further concerns. Otherwise follow-up with your [facility] worker for mental health as needed and you should call your primary care office on Saturday for arrangement of follow-up appointment due to possible medication side effects. Referrals: Eric Singer DO [Primary Care Provider] - (For reassessment and discussion of your medications) Discharge Data Discharge Date/Time-TO BE ENTERED AT DEPARTURE: 02/01/19 13:32 Medical Decision Making Patient presenting to the emergency department for chief complaint of worsening jerry. She states that she was started on a new medication 3 weeks ago that seem to be helping but then 3 days ago her prescriber started her on Remeron again for sleep. She states the next day she started feeling worsening jerry with last night only getting 4 hours of sleep and seeing some shadows for hallucinations. Patient does state that she feels little better this morning but still was concerned. Patient has no rapid speech, thought is coherent, no suicidal homicidal ideations, no current hallucinations that she is noticing, and denies any medical complaints. Given that patient symptoms seem to be related to the Remeron I feel that we should hold this given that she is only been on this for 3 days. Otherwise patient to continue all of her other medications and follow-up with primary care provider for reassessment. Spoke with mental health provider on-call and requested that they check in on patient preferably this evening and twice tomorrow to make sure that patient does not have any worsening symptoms that would require further evaluation but otherwise I doubt any medical etiology given patient's psychiatric history and new medication with symptoms shortly after. Patient is otherwise stable. After discussion of diagnosis and plan of care patient has no further needs, questions, or concerns and states clear understanding to return to the emergency department for any worsening symptoms. HPI General Mode of arrival: ambulatory . Date/Time Provider Initiated Documentation: 02/01/19 11:27 . Limitations to Documentation: no limitations . Information obtained by: patient and RN notes reviewed . HPI Narrative: Patient presenting to the emergency department for chief complaint of medication side effect causing jerry. Patient states recent medication changes and new medication and for the past 5 days she has had worsening insomnia causing some jerry. Patient denies any discomfort, states symptoms are intermittent, denies any medical complaints. Related Data Home Medications Medication Instructions Recorded Confirmed albuterol sulfate [ProAir HFA] 2 puff INHALATION Q4H PRN #1 05/07/16 02/01/19 inhaler ondansetron HCl [Zofran] 8 mg PO TID #6 tab-cap 07/03/16 02/01/19 ipratropium-albuterol 3 ml INHALATION Q3H PRN #1 box 08/09/17 02/01/19 Flovent HFA 2 puff INHALATION BID #1 inh 08/12/17 02/01/19 sumatriptan 50 mg tablet 50 mg PO Q2H PRN 08/28/18 02/01/19 Previous Rx's Medication Instructions Recorded ipratropium-albuterol 3 ml INHALATION Q3H PRN #1 box 08/09/17 Flovent HFA 2 puff INHALATION BID #1 inh 08/12/17 Allergies Allergy/AdvReac Type Severity Reaction Status Date / Time citalopram AdvReac Intermediate insomnia Verified 02/01/19 11:34 ultrasound gel Allergy Intermediate Itching Uncoded 02/01/19 11:34 General Stated Complaint: Allergic CONOR: 3 Review of Systems Constitutional Denies body ache(s), Denies chills and Denies fever(s) Cardiovascular Denies chest pain and Denies dyspnea Respiratory Denies dyspnea Gastrointestinal Denies abdominal pain, Denies nausea and Denies vomiting Integumentary/Breasts Denies rash Neurologic Denies confusion and Denies sensory deficit Psychiatric Reports as per HPI, Reports abnormal sleep pattern, Denies confusion, Denies depression, Denies irritability, Denies panic attacks, Denies paranoia, Reports visual hallucinations (See shadows), Denies homicidal ideation and Denies suicidal ideation [facility] Medical History Allergic rhinitis Alopecia (capitis) totalis Asthma Atopic dermatitis Migraine Urinary tract infection Family History Mother Obstructive sleep apnea syndrome Father Esophageal stricture Sister Mental disorder Sister No problems noted. Brother No problems noted. Brother Asthma Social History Smoking/Tobacco Use Status: Never Alcohol Intake: never Drug use: Rarely Substance use type: does not use What type of physical activity do you participate in: walking Frequency: daily Seatbelt use: always Do you feel safe at home: Yes Do you feel safe in your relationship?: Yes Exam Const General: cooperative, no acute distress and not ill appearing Orientation: alert, awake and oriented x3 HENMT Mouth: moist mucous membranes Resp Effort & Inspection: normal respiratory effort, able to speak in complete sentences and no respiratory distress Cardio Rate: regular rate Rhythm: regular rhythm Skin General skin exam: no rashes or lesions noted Neuro General: alert, awake, oriented x3, moves all extremities and no focal motor deficits Psych Appearance: grossly normal Mental Status: mental status grossly normal Speech and Movement: speech clear Mood: anxious mood, not euphoric and not manic Affect: indifferent Attitude: cooperative Thought Process: normal, no flight of ideas, logical and not tangential Thought Content: normal, no delusions, no hallucinations and suicidality Judgment: fair Course Vital Signs Temperature 36.8 C 02/01/19 11:26 Pulse 92 H 02/01/19 11:26 Respiratory Rate 16 02/01/19 11:26 Blood Pressure 126/80 02/01/19 11:26 Pulse Oximetry 97 02/01/19 11:26 Temperature 36.8 C 02/01/19 11:26 Temperature Source Temporal Artery Scan 02/01/19 11:26 Pulse 92 H 02/01/19 11:26 Respiratory Rate 16 02/01/19 11:26 Respiratory Effort Non-Labored 02/01/19 11:32 Respiratory Pattern Normal 02/01/19 11:32 Blood Pressure 126/80 02/01/19 11:26 Blood Pressure Position Sitting 02/01/19 11:26 Pulse Oximetry 97 02/01/19 11:26 Oxygen Delivery Method Room Air 02/01/19 11:26 Oxygen Flow Rate 0 02/01/19 11:26 Pain Level 0 02/01/19 11:26
[2019-02-01 13:26] VITALS: BP 104/68; PULSE 83; RESP 16; TEMP 36.7; O2SAT 99
== END 2019-02-01 13:32 | disposition home or self-care (01) ==
PROVIDERS: Emergency Provider Nurse Practitioner Family; PCP Family Medicine
DX: R44.1 Visual hallucinations (principal); T43.025A Adverse effect of tetracyclic antidepressants, initial encounter; F30.9 Manic episode, unspecified; F31.9 Bipolar disorder, unspecified
CPT/HCPCS: 99283

== ENCOUNTER 2019-02-22 08:56 | Emergency (ER) | payer MEDICAID, SELFPAY ==
--- NOTE | 2019-02-22 09:11 | ED.GENADUL_ITS ---
Discharge Plan Disposition Patient Disposition: HOME Condition: Improving Discharge Details Chief Complaint: Nausea/Vomit/Diar Clinical Impression: Gastroenteritis, UTI (urinary tract infection) Primary Care Provider: Eric Singer ED Provider: Shiloh Rm Home Meds and New Rx's Prescriptions: New cephalexin [Keflex] 500 mg capsule 500 mg PO BID Qty: 10 RF: 0 ondansetron 4 mg tablet,disintegrating 4 mg PO QID PRN (Reason: nausea and vomiting) Qty: 10 RF: 0 Continued albuterol sulfate [ProAir HFA] 8.5 GM HFA aerosol inhaler 2 puff Inhalation Q4H PRN Qty: 1 RF: 0 ipratropium-albuterol 3 ML solution for nebulization 3 ml Inhalation Q3H PRN Qty: 1 RF: 3 Flovent HFA 120 PUFF HFA aerosol inhaler 2 puff Inhalation BID Qty: 1 RF: 2 sumatriptan succinate 50 mg tablet 50 mg PO Q2H PRNRF: 0 Vraylar 3 mg Capsule 3 mg PO DAILY RF: 0 Discharge Instructions Instructions: Urinary Tract Infection in Women (ED), Gastroenteritis (ED) Additional Instructions: Continue to encourage hydration. You may use Zofran as prescribed to help with nausea and vomiting if this recurs. Please take Keflex as prescribed for urinary tract infect even if symptoms improve, please take the entire course If you develop fever/chills, abdominal pain, inability stay hydrated, back pain or other new/worsening symptoms please seek care urgently once again. Please follow-up with primary care at the end of the week to reevaluate. Stand Alone Forms: Work Release Referrals: Eric Singer DO [Primary Care Provider] - Discharge Data Discharge Date/Time-TO BE ENTERED AT DEPARTURE: 02/22/19 11:33 Medical Decision Making Patient is a 23-year-old female presenting today with chief complaint of nausea, vomiting, diarrhea and dysuria. Patient reports she is been having difficulty holding states his symptoms began yesterday. Denies any fevers or chills. No recent travel. No known sick contacts. She reports she had difficulty holding down fluids. Has had minimal p.o. intake. On exam, patient does appear dehydrated. Vital signs are reassuring with a temp of 36.9 ?C, blood pressure 112/64, O2 99% on room air, pulse of 82. She appears nontoxic and abdomen is benign. She does appear slightly dehydrated. Plan to check for any electrolyte ab normality's, hydrate the patient , and test for possible UTI. Patient reports she is had multiple urinary tract infections in the past, no recent antibiotics. Labs are reassuring. There is a slight anion gap, this is likely associated with her acute illness and dehydration. she has received 1L of fluid, hydrating orally. Feeling improved after Zofran. UA concerning for UTI. Will treat with Keflex. Encourage hydration. We will also prescribe Zofran to help with any recurrence of her nausea that may occur. Advised follow-up with her primary care if not improving over the next week. She is given strict return precautions. All other questions and concerns were addressed she is in agreement this plan. HPI General Mode of arrival: ambulatory . Date/Time Provider Initiated Documentation: 02/22/19 08:58 . Limitations to Documentation: no limitations . Information obtained by: patient, family (accompanied by mother) and RN notes reviewed . HPI Narrative: Patient is a 23-year-old female presents today for nausea, vomiting, diarrhea and concerns for possible UTI. She reports that symptoms began yesterday. States she vomited x1 today and has had 3 episodes of loose bowel movements. She denies any fevers. No URI symptoms. Denies any chest pain or shortness of breath. Denies any abdominal pain. Reports that she is currently nauseated. No previous abdominal surgeries. Patient has a IUD in place. Related Data Home Medications Medication Instructions Recorded Confirmed albuterol sulfate [ProAir HFA] 2 puff INHALATION Q4H PRN #1 05/07/16 02/22/19 inhaler ipratropium-albuterol 3 ml INHALATION Q3H PRN #1 box 08/09/17 02/22/19 Flovent HFA 2 puff INHALATION BID #1 inh 08/12/17 02/22/19 sumatriptan 50 mg tablet 50 mg PO Q2H PRN 08/28/18 02/22/19 Vraylar 3 mg PO DAILY 02/22/19 02/22/19 cephalexin [Keflex] 500 mg PO BID #10 cap 02/22/19 ondansetron 4 mg PO QID PRN #10 tab 02/22/19 Previous Rx's Medication Instructions Recorded ipratropium-albuterol 3 ml INHALATION Q3H PRN #1 box 08/09/17 Flovent HFA 2 puff INHALATION BID #1 inh 08/12/17 cephalexin [Keflex] 500 mg PO BID #10 cap 02/22/19 ondansetron 4 mg PO QID PRN #10 tab 02/22/19 Allergies Allergy/AdvReac Type Severity Reaction Status Date / Time citalopram AdvReac Intermediate insomnia Verified 02/22/19 09:27 ultrasound gel Allergy Intermediate Itching Uncoded 02/22/19 09:27 General CONOR: 3 Review of Systems Constitutional Reports as per HPI, Denies chills, Denies fatigue, Denies fever(s) and Denies headache(s) ENT Denies headache(s) Cardiovascular Reports as per HPI, Denies chest pain and Denies dyspnea Respiratory Reports as per HPI, Denies cough and Denies dyspnea Gastrointestinal Reports as per HPI, Denies abdominal pain, Denies melena, Reports change in bowel habits, Denies coffee ground emesis, Reports diarrhea, Reports nausea and Reports vomiting Genitourinary Reports as per HPI, Reports amenorrhea (since placement of IUD), Reports dysuria, Denies flank pain, Denies urinary incontinence, Reports urinary urgency and Denies vaginal discharge Musculoskeletal Reports as per HPI and Denies back pain Integumentary/Breasts Reports as per HPI and Denies rash Neurologic Reports as per HPI and Denies headache(s) Endocrine Denies fatigue PFSH Medical History Allergic rhinitis Alopecia (capitis) totalis Asthma Atopic dermatitis Migraine Urinary tract infection Social History Smoking/Tobacco Use Status: Never Alcohol Intake: current Alcohol Intake frequency: holidays/special occasions only Drug use: Rarely Substance use type: does not use What type of physical activity do you participate in: walking Frequency: daily Seatbelt use: always Do you feel safe at home: Yes Do you feel safe in your relationship?: Yes Exam Const General: cooperative, healthy appearing, comfortable, no acute distress and well developed Nutritional Appearance: average body habitus and well nourished Orientation: alert and awake HENMT Head: normal to inspection Mouth: moist mucous membranes Resp Effort & Inspection: normal respiratory effort, able to speak in complete sentences and no respiratory distress Auscultation: clear to auscultation bilaterally, no rales, no rhonchi and no wheezes Cardio Rate: regular rate Rhythm: regular rhythm Heart Sounds: S1 normal and S2 normal GI Inspection: normal to inspection, no edema, non-distended and no obesity Palpation: soft, no hepatosplenomegaly, not firm, no guarding and not rigid Percussion: normal to percussion Auscultation: normal bowel sounds Back/Spine/Pelvis Back: no CVA tenderness Skin General skin exam: no rashes or lesions noted Trauma: no lacerations or abrasions Neuro General: alert and awake Cognition: normal cognition Speech: speech normal Gait: normal gait Psych Appearance: grossly normal and well kempt Mental Status: mental status grossly normal Speech and Movement: speech and movement normal
[2019-02-22] MEDS: Ondansetron 4 MG/2 ML VIAL IVP (09:20)
--- NOTE | 2019-02-22 09:22 | NUR.NOTE ---
Nursing Note: pt states that she started having N/V/D yesterday 7 incidence on vomiting
[2019-02-22 09:24] VITALS: BP 112/64; PULSE 82; RESP 17; TEMP 36.9; O2SAT 98
[2019-02-22 09:51] LABS: Abs Immature Grans 0.01 k/cumm (0.0-0.09); Absolute Basophil Count 0.02 k/cumm (0.0-0.2); Absolute Eosinophil Count 0.06 k/cumm (0.0-0.7); Absolute Lymphocyte Count 1.28 k/cumm (1.2-3.4); Absolute Monocyte Count 0.43 k/cumm (0.11-0.7); Absolute Neutrophil Count 4.54 k/cumm (1.2-6.7); Basophils % 0.3; Eosinophils % 0.9; HCT 42.8 % (36.0-46.0); HGB 14.3 g/dL (12.0-15.5); Immature Grans % 0.2; Lymphocytes % 20.2; Mean Corp. HGB Concentration 33.4 g/dL (32.0-36.0); Mean Corpuscular Volume 86.8 fL (80-95); Mean Platelet Volume 10.8 fL (8.0-11.0); Monocytes % 6.8; Neutrophils % 71.6; Platelet Count 314 x1000/uL (130-400); RBC 4.93 m/cumm (4.00-5.20); RBC Distribution Width 13.5 % (11.7-14.6); White Blood Cell Count 6.34 k/cumm (4.4-10.8)
[2019-02-22] MEDS: Normal Saline 1,000 ML 1000 ML IV (10:12)
[2019-02-22 10:13] LABS: ALT 25 U/L (12-78); AST 14 U/L (15-37); Albumin 4.4 g/dL (3.4-5.0); Alkaline Phosphatase 99 U/L (46-116); Anion Gap 13.9 mmol/L (3-11); BUN 12 mg/dL (7-18); Bilirubin, Total 0.7 mg/dL (0.2-1.0); CO2 25.1 mmol/L (21.0-32.0); CREATININE 0.68 mg/dL (0.55-1.02); Calcium 9.8 mg/dL (8.5-10.1); Chloride 104 mmol/L (98-107); Glucose 88 mg/dL (70-100); Potassium 3.9 mmol/L (3.5-5.1); Sodium 143 mmol/L (136-145); Total Protein 8.6 g/dL (6.4-8.2)
[2019-02-22 10:14] LABS: Bilirubin Small (Negative); Blood Large (Negative); Clarity Clear; Glucose Negative (Negative); Ketones >=160 mg/dL (Negative); Leukocyte Esterase Negative (Negative); Nitrite Positive (Negative); Specific Gravity >= 1.030 (1.005-1.025)
[2019-02-22 10:32] LABS: Bacteria Many HPF (Negative); C & S Indicated? Yes; Casts Negative LPF (Negative); Crystals Negative HPF (Negative); Epithelial Cells Many HPF (Negative); Mucus Negative (Negative)
[2019-02-22 11:33] VITALS: BP 112/64; PULSE 82; RESP 17; TEMP 36.9; O2SAT 98
== END 2019-02-22 11:33 | disposition home or self-care (01) ==
PROVIDERS: Emergency Provider Physician Assistant; PCP Family Medicine
DX: K52.9 Noninfective gastroenteritis and colitis, unspecified (principal); N39.0 Urinary tract infection, site not specified; Z87.440 Personal history of urinary (tract) infections
CPT/HCPCS: 36415; 80053; 96361; 96374; 99284; 81003; 81015; 83735; 85025; 87086; J2405

== ENCOUNTER 2019-05-16 13:10 | Emergency (ER) | payer MEDICAID, SELFPAY ==
[2019-05-16 13:16] VITALS: BP 108/60; PULSE 64; RESP 16; TEMP 36.8; O2SAT 97
--- NOTE | 2019-05-16 13:43 | ED.GENADUL_ITS ---
Discharge Plan Disposition Patient Disposition: HOME Condition: Good Discharge Details Chief Complaint: Urinary Clinical Impression: Drug side effects Primary Care Provider: Eric Singer ED Provider: Shiloh Rm Home Meds and New Rx's Prescriptions: Continued albuterol sulfate [ProAir HFA] 8.5 GM HFA aerosol inhaler 2 puff Inhalation Q4H PRN Qty: 1 RF: 0 ipratropium-albuterol 3 ML solution for nebulization 3 ml Inhalation Q3H PRN Qty: 1 RF: 3 Flovent HFA 120 PUFF HFA aerosol inhaler 2 puff Inhalation BID Qty: 1 RF: 2 sumatriptan succinate 50 mg tablet 50 mg PO Q2H PRNRF: 0 Vraylar 3 mg Capsule 3 mg PO DAILY RF: 0 ondansetron 4 mg tablet,disintegrating 4 mg PO QID PRN (Reason: nausea and vomiting) Qty: 10 RF: 0 Discharge Instructions Additional Instructions: Encourage hydration. Please contact primary care Saturday to discuss tapering off of medication. Laboratory evaluation is reassuring here today. If you develop new or worsening symptoms please seek care urgently once again. Please avoid activities that exacerbate your symptoms. Stand Alone Forms: Work Release Referrals: Eric Singer DO [Primary Care Provider] - Discharge Data Discharge Date/Time-TO BE ENTERED AT DEPARTURE: 05/16/19 16:20 Medical Decision Making Patient is a 23-year-old female presents today with vague complaints. Primary concern at this time is being possible urinary tract infection. She reports that she awoke this morning with some dysuria. Denies any vaginal pruritus, no vaginal discharge, odor. UA obtained by nursing staff. Denies any new sexual partners, is not concerned for possible STD at this point. States that she felt warm last night but no known fevers. Is also concerned that she has been dizzy and describes as further as lightheadedness. Reports that this is been ongoing for the past week. Specifics are acutely worse when at work and when active. Reports that she was just recently put on Vraylar. Began this 1 week ago and reports that she did decrease her dose at the advisement of her physician when these symptoms began. Denies any headache. No visual change. Endorses nausea and vomiting x1 today. Denies any rash. Has been feeling globally weak. EKG was reviewed by Dr. Raymond. Patient's normal sinus rhythm with a rate of 68 with nonspecific T wave abnormalities. No acute ischemic changes. At this time, her symptoms seem most consistent with adverse reaction from her Vraylar. However, plan for screening labs to evaluate this feeling of lightheadedness further. UA is pending to evaluate for UTI which is the patient's primary complaint at this time. Patient is PERC negative. Urinalysis is contaminated does not appear consistent with urinary tract infection, leukocyte esterase and nitrate are negative. Discussed these findings with the patient. Blood work reveals no leukocytosis, normal electrolytes, normal kidney function, no abnormality in liver function. TSH within normal limits. Advised the patient that her symptoms are likely associated with her Vraylar. However, on review of this medication, it sounds that she needs to have a long taper for coming off of this medication. Advised that this should be completed through her primary care physician. I encouraged hydration. A work note was given. She is been asymptomatic since being here so I do not see any need for emergent intervention at this time. Patient is accompanied by her mother who also voices understanding in plan. We discussed new/worsening symptoms when to seek care urgently once again. All other questions and concerns were addressed. HPI General Mode of arrival: ambulatory . Date/Time Provider Initiated Documentation: 05/16/19 13:42 . Limitations to Documentation: no limitations . Information obtained by: patient and RN notes reviewed . History of Present Illness 23 year old F presents to the emergency department with the chief complaint of concerned for UTI with frequency, urgency, dysurea, described as mild and similar to prior episodes, Quality is described as burning (with urination), and is localized to the genitals. Patient reports no radiation. Patient started experiencing this hour(s) and it has been constant. No relieving factors improve symptom(s), No exacerbating factors reported . Patient notes no other symptoms.. Patient did receive the following treatments prior to arrival, none Related Data Home Medications Medication Instructions Recorded Confirmed albuterol sulfate [ProAir HFA] 2 puff INHALATION Q4H PRN #1 05/07/16 05/16/19 inhaler ipratropium-albuterol 3 ml INHALATION Q3H PRN #1 box 08/09/17 05/16/19 Flovent HFA 2 puff INHALATION BID #1 inh 08/12/17 05/16/19 sumatriptan succinate 50 mg tablet 50 mg PO Q2H PRN 08/28/18 05/16/19 Vraylar 3 mg PO DAILY 02/22/19 05/16/19 ondansetron 4 mg PO QID PRN #10 tab 02/22/19 05/16/19 Previous Rx's Medication Instructions Recorded ipratropium-albuterol 3 ml INHALATION Q3H PRN #1 box 08/09/17 Flovent HFA 2 puff INHALATION BID #1 inh 08/12/17 ondansetron 4 mg PO QID PRN #10 tab 02/22/19 Allergies Allergy/AdvReac Type Severity Reaction Status Date / Time citalopram AdvReac Intermediate insomnia Verified 05/16/19 13:19 ultrasound gel Allergy Intermediate Itching Uncoded 05/16/19 13:19 General Stated Complaint: Urinary CONOR: 4 Review of Systems Constitutional Reports as per HPI, Denies chills, Reports fatigue, Denies fever(s), Denies frequent falls, Denies headache(s), Denies snoring and Denies weakness Eyes Reports as per HPI, Denies blurry vision, Denies change in vision and Reports photophobia ENT Denies vertigo, Denies headache(s) and Denies neck pain Cardiovascular Reports as per HPI, Denies chest pain, Denies lightheadedness, Denies radiating jaw, neck or arm pain, Denies dyspnea and Denies dyspnea on exertion Respiratory Reports as per HPI, Denies chest congestion, Denies cough, Denies dyspnea, Brandon es dyspnea on exertion, Denies snoring, Denies stridor and Denies wheezing Gastrointestinal Reports as per HPI, Denies abdominal pain, Denies change in bowel habits, Denies nausea and Denies vomiting Genitourinary Reports as per HPI, Denies abnormal menses, Reports dysuria, Denies flank pain, Reports urinary urgency, Denies vaginal discharge, Denies vaginal odor and Denies vaginal pruritus Musculoskeletal Reports as per HPI, Denies back pain, Denies myalgias, Denies muscle cramps, Denies neck pain and Denies numbness Integumentary/Breasts Reports as per HPI and Denies rash Neurologic Reports as per HPI, Denies abnormal movements, Denies abnormal speech, Denies behavioral changes, Denies confusion, Denies vertigo, Denies frequent falls, Denies headache(s), Denies focal weakness, Denies numbness, Denies sensory de ficit and Denies weakness Psychiatric Denies behavioral changes and Denies confusion Endocrine Reports fatigue Allergic/Immunologic Denies wheezing [facility] Social History Smoking/Tobacco Use Status: Never Alcohol Intake: current Alcohol Intake frequency: holidays/special occasions only Drug use: Rarely Substance use type: does not use What type of physical activity do you participate in: walking Frequency: daily Seatbelt use: always Do you feel safe at home: Yes Do you feel safe in your relationship?: Yes Exam Const General: cooperative, healthy appearing, uncomfortable, no acute distress, well developed and well groomed Nutritional Appearance: average body habitus and well nourished Orientation: alert, awake and oriented x3 HENMT Head: normal to inspection, no palpable skull fracture, normocephalic and atraumatic Ears: hearing grossly normal bilaterally, external ears normal and TM's normal bilaterally General nose exam: external nose normal Mouth: oral mucosae normal and moist mucous membranes Throat: posterior oropharynx normal Eyes General: appearance normal, both eyes and all related structures Alignment and Position: alignment normal Periorbital: periorbital findings normal Eyelids: eyelids normal Sclera: sclerae normal Cornea: corneas normal Pupils: PERRL EOM: EOM intact bilaterally Neck Neck: normal visual inspection, full ROM, no lymphadenopathy and no meningeal signs Resp Effort & Inspection: normal respiratory effort, able to speak in complete sentences and no respiratory distress Auscultation: clear to auscultation bilaterally, no rales, no rhonchi and no wheezes Cardio Rate: regular rate Rhythm: regular rhythm Heart Sounds: S1 normal and S2 normal GI Inspection: normal to inspection and non-distended Palpation: soft, no hepatosplenomegaly, not firm, no guarding, not rigid and nontender Percussion: normal to percussion Auscultation: normal bowel sounds Back/Spine/Pelvis Back: no CVA tenderness Cervical Spine: normal cervical lordosis and cervical ROM normal Skin General skin exam: no rashes or lesions noted Neuro General: alert, awake and oriented x3 Cranial Nerves: CN's II-XI intact bilaterally Cognition: normal cognition Speech: speech normal Gait: normal gait Motor: muscle tone normal throughout, strength 5/5 throughout, no pronator drift, no movement abnormalities noted and no fasciculations Sensory Exam: no sensory deficits noted Coordination: [id number] test normal and [id number] test normal Extrem General: normal to inspection, normal capillary refill, no pedal edema and no calf tenderness Psych Appearance: grossly normal and well kempt Mental Status: mental status grossly normal Speech and Movement: speech and movement normal Course Vital Signs Temperature 36.8 C 05/16/19 13:16 Pulse 64 05/16/19 13:16 Respiratory Rate 16 05/16/19 13:16 Blood Pressure 108/60 05/16/19 13:16 Pulse Oximetry 97 05/16/19 13:16 Temperature 36.8 C 05/16/19 13:16 Temperature Source Temporal Artery Scan 05/16/19 13:16 Pulse 64 05/16/19 13:16 Respiratory Rate 16 05/16/19 13:16 Blood Pressure 108/60 05/16/19 13:16 Blood Pressure Position Sitting 05/16/19 13:16 Pulse Oximetry 97 05/16/19 13:16 Oxygen Delivery Method Room Air 05/16/19 13:16 Oxygen Flow Rate 0 05/16/19 13:16 Pain Level 0 05/16/19 13:16 Lab/Test Results Lab/Test Results: POC- Test(urine) Negative
[2019-05-16 13:48] LABS: Bilirubin Negative (Negative); Blood Trace-lysed (Negative); Clarity Clear (Clear); Glucose Negative (Negative); Ketones Negative (Negative); Leukocyte Esterase Negative (Negative); Nitrite Negative (Negative); Specific Gravity >= 1.030 (1.005-1.025); Urobilinogen 0.2 EU/dL (Up TO 0.2)
[2019-05-16 14:07] LABS: Bacteria Moderate HPF (Negative); C & S Indicated? No/Sq. Contamination; Casts Negative LPF (Negative); Crystals Negative HPF (Negative); Epithelial Cells Many HPF (Negative); Mucus Negative (Negative); RBC Negative (0-2); WBC 0-2 HPF (0-5)
[2019-05-16] MEDS: Normal Saline 1,000 ML 1000 ML IV (15:15)
[2019-05-16 15:20] LABS: Abs Immature Grans 0.01 k/cumm (0.0-0.09); Absolute Basophil Count 0.05 k/cumm (0.0-0.2); Absolute Eosinophil Count 0.31 k/cumm (0.0-0.7); Absolute Lymphocyte Count 1.45 k/cumm (1.2-3.4); Absolute Monocyte Count 0.48 k/cumm (0.11-0.7); Absolute Neutrophil Count 5.76 k/cumm (1.2-6.7); Basophils % 0.6; Eosinophils % 3.8; HCT 40.5 % (36.0-46.0); HGB 13.6 g/dL (12.0-15.5); Immature Grans % 0.1; Mean Corp. HGB Concentration 33.6 g/dL (32.0-36.0); Mean Corpuscular Hemoglobin 29.2 pg (27.0-33.0); Mean Corpuscular Volume 86.9 fL (80-95); Mean Platelet Volume 10.9 fL (8.0-11.0); Neutrophils % 71.5; Platelet Count 324 x1000/uL (130-400); RBC 4.66 m/cumm (4.00-5.20); RBC Distribution Width 12.8 % (11.7-14.6); White Blood Cell Count 8.06 k/cumm (4.4-10.8)
[2019-05-16 15:33] LABS: ALT 34 U/L (14-59); AST 17 U/L (15-37); Albumin 4.5 g/dL (3.4-5.0); Alkaline Phosphatase 99 U/L (46-116); BUN 11 mg/dL (7-18); Bilirubin, Total 0.6 mg/dL (0.2-1.0); CREATININE 0.76 mg/dL (0.55-1.02); Calcium 9.5 mg/dL (8.5-10.1); Chloride 104 mmol/L (98-107); Glucose 82 mg/dL (70-100); Potassium 3.8 mmol/L (3.5-5.1); Sodium 141 mmol/L (136-145); Total Protein 8.5 g/dL (6.4-8.2)
[2019-05-16 15:41] LABS: TSH (W/Ref FT4) 0.51 uIU/mL (0.36-3.74)
[2019-05-16 16:21] VITALS: BP 108/60; PULSE 64; RESP 16; TEMP 36.8; O2SAT 97
== END 2019-05-16 16:20 | disposition home or self-care (01) ==
PROVIDERS: Emergency Provider Physician Assistant; PCP Family Medicine
DX: R30.0 Dysuria (principal); R11.2 Nausea with vomiting, unspecified; T43.505A Adverse effect of unspecified antipsychotics and neuroleptics, initial encounter
CPT/HCPCS: 80053; 96360; 99283; 81003; 81015; 84443; 84702; 85025

== ENCOUNTER 2019-07-14 16:09 | Observation (INO) | payer MEDICAID, SELFPAY ==
[2019-07-14 16:14] VITALS: BP 103/68; PULSE 87; RESP 18; TEMP 36.3; O2SAT 97
--- NOTE | 2019-07-14 16:17 | W.ED.GENAD ---
Discharge Plan Disposition Patient Disposition: [facility] INPATIENT Condition: Serious Discharge Details Chief Complaint: PsychEval Clinical Impression: Suicidal ideation Primary Care Provider: Eric Singer ED Provider: Shiloh Rm Home Meds and New Rx's Prescriptions: No Action albuterol sulfate [ProAir HFA] 8.5 GM HFA aerosol inhaler 2 puff Inhalation Q4H PRN Qty: 1 RF: 0 ipratropium-albuterol 3 ML solution for nebulization 3 ml Inhalation Q3H PRN Qty: 1 RF: 3 Flovent HFA 120 PUFF HFA aerosol inhaler 2 puff Inhalation BID Qty: 1 RF: 2 sumatriptan succinate 50 mg tablet 50 mg PO Q2H PRNRF: 0 hydroxyzine HCl 10 mg tablet 20 mg PO QHS RF: 0 Vraylar 4.5 mg capsule 4.5 mg PO DAILY RF: 0 ondansetron 4 mg tablet,disintegrating 4 mg PO QID PRN (Reason: nausea and vomiting) Qty: 10 RF: 0 Medical Decision Making Patient is a 23-year-old female, accompanied by her mother, chief complaint of suicidal ideation. Reports that she attempted to commit suicide last night. Reports that she took 5-10 Ativan in an attempt to commit suicide. Also cut herself on her right lower extremity with a razor is to appear to be superficial. No signs of infection. Patient has a long history of depression and has had suicidal ideation historically. She appears teary, anxious and admits to being impulsive. I am concerned regarding her well-being and would like to have her evaluated by [facility] human services. I have requested a patient observer. She and her mother are agreeable to hospitalization. Mother seems to be a good support for the patient. Patient has been evaluated by [facility] services. They do feel that inpatient placement is appropriate for her. Labs are without significant abnormality. Patient has remained calm and appropriate while here. Bed is not available tonight. I have discussed the case with Dr. Vu who accepts the patient admission. HPI General Mode of arrival: ambulatory. Date/Time Provider Initiated Documentation: 07/14/19 16:13. Limitations to Documentation: no limitations. Information obtained by: patient and family (mother). HPI Narrative: Patient is a 23-year-old female with history of major depressive disorder, gender identity disorder, panic disorder, adjustment disorder, anxiety, pulmonary valve prolapse, presenting today with chief complaint of suicidal ideation. She reports that her depression has been greatly increasing over the past few weeks. States that she had not been taking her medications for the month prior to that. States she has been taking her medications again for the past 2 days. Denies any alcohol or illicit drug use. States that she intends to cut herself or overdose. Reports that last night she was cutting her legs superficially which she has done multiple times in the past, and took 5-10 Ativan tablets in an attempt to commit suicide. Patient is requesting hospitalization. States she has been hospitalized 4 times historically for similar episodes. Most recently was in September 2017 at which time she was hospitalized at [facility]. Related Data Home Medications Medication Instructions Recorded Confirmed albuterol sulfate [ProAir HFA] 2 puff INHALATION Q4H PRN #1 05/07/16 05/16/19 inhaler ipratropium-albuterol 3 ml INHALATION Q3H PRN #1 box 08/09/17 07/14/19 Flovent HFA 2 puff INHALATION BID #1 inh 08/12/17 05/16/19 sumatriptan succinate 50 mg tablet 50 mg PO Q2H PRN 08/28/18 07/14/19 ondansetron 4 mg PO QID PRN #10 tab 02/22/19 07/14/19 cariprazine 4.5 mg capsule 4.5 mg PO DAILY 05/21/19 07/14/19 hydroxyzine HCl 10 mg tablet 20 mg PO QHS tab 05/21/19 07/14/19 Previous Rx's Medication Instructions Recorded ipratropium-albuterol 3 ml INHALATION Q3H PRN #1 box 08/09/17 Flovent HFA 2 puff INHALATION BID #1 inh 08/12/17 ondansetron 4 mg PO QID PRN #10 tab 02/22/19 Allergies Allergy/AdvReac Type Severity Reaction Status Date / Time citalopram AdvReac Intermediate insomnia Verified 07/14/19 16:24 ultrasound gel Allergy Intermediate Itching Uncoded 07/14/19 16:24 General CONOR: 4 Review of Systems Constitutional Constitutional: Reports as per HPI, Denies chills, Denies fatigue, Denies fever(s), Denies headache(s) and Denies weakness Eyes Eyes: Denies change in vision ENT Ears, Nose, Mouth, and Throat: Denies headache(s) Cardiovascular Cardiovascular: Reports as per HPI, Denies chest pain, Denies lightheadedness, Denies dyspnea and Denies dyspnea on exertion Respiratory Respiratory: Reports as per HPI, Denies cough, Denies dyspnea and Denies dyspnea on exertion Gastrointestinal Gastrointestinal: Reports as per HPI, Denies abdominal pain, Denies change in bowel habits, Denies nausea and Denies vomiting Musculoskeletal Musculoskeletal: Denies abnormal gait Integumentary/Breasts Skin/Breast: Reports as per HPI, Denies rash and Reports wounds Neurologic Neurologic: Denies abnormal movements, Denies abnormal speech, Denies abnormal gait, Denies headache(s), Denies paresthesias and Denies weakness Psychiatric Psychiatric: Reports as per HPI, Reports abnormal sleep pattern, Reports anxiety, Reports depression, Reports hopelessness, Reports mood swings, Denies panic attacks, Denies visual hallucinations, Denies hallucinations, Denies homicidal ideation and Reports suicidal ideation (with attempt) Endocrine Endocrine: Denies fatigue [facility] Medical History Allergic rhinitis Alopecia (capitis) totalis Asthma Atopic dermatitis Migraine Urinary tract infection requiring hospitalization Social History Smoking/Tobacco Use Status: Never Alcohol Intake: current Alcohol Intake frequency: holidays/special occasions only Drug use: Rarely Substance use type: does not use What type of physical activity do you participate in: walking Frequency: daily Seatbelt use: always Do you feel safe at home: Yes Do you feel safe in your relationship?: Yes Exam Const General: cooperative, healthy appearing, no acute distress, well developed, well groomed and anxious (tearing and appears anxious) Nutritional Appearance: average body habitus and well nourished Orientation: alert and awake Eyes General: appearance normal, both eyes and all related structures Resp Effort & Inspection: normal respiratory effort, able to speak in complete sentences and no respiratory distress Auscultation: clear to auscultation bilaterally, no rales, no rhonchi and no wheezes Cardio Rate: regular rate Rhythm: regular rhythm Heart Sounds: S1 normal and S2 normal Skin General skin exam: no rashes or lesions noted Trauma: no lacerations or abrasions Neuro General: alert and awake Cognition: normal cognition Speech: speech normal Gait: normal gait Psych Appearance: grossly normal and well kempt Mental Status: mental status grossly normal Speech and Movement: speech and movement normal Mood: anxious mood Affect: sad Attitude: cooperative Thought Process: normal Thought Content: normal (patient does worry that she is very impulsive) Insight: insight good Judgment: limited
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
[2019-07-14 17:25] LABS: Abs Immature Grans 0.01 k/cumm (0.0-0.09); Absolute Basophil Count 0.05 k/cumm (0.0-0.2); Absolute Lymphocyte Count 1.99 k/cumm (1.2-3.4); Absolute Monocyte Count 0.57 k/cumm (0.11-0.7); Absolute Neutrophil Count 3.92 k/cumm (1.2-6.7); Basophils % 0.7; Eosinophils % 5.8; HCT 39.3 % (36.0-46.0); HGB 12.9 g/dL (12.0-15.5); Immature Grans % 0.1; Lymphocytes % 28.7; Mean Corp. HGB Concentration 32.8 g/dL (32.0-36.0); Mean Corpuscular Hemoglobin 28.6 pg (27.0-33.0); Mean Corpuscular Volume 87.1 fL (80-95); Mean Platelet Volume 10.9 fL (8.0-11.0); Monocytes % 8.2; Neutrophils % 56.5; Platelet Count 300 x1000/uL (130-400); RBC 4.51 m/cumm (4.00-5.20); RBC Distribution Width 12.8 % (11.7-14.6); White Blood Cell Count 6.94 k/cumm (4.4-10.8)
[2019-07-14 17:48] LABS: ALT 57 U/L (14-59); AST 30 U/L (15-37); Albumin 3.9 g/dL (3.4-5.0); Alkaline Phosphatase 110 U/L (46-116); Anion Gap 9.7 mmol/L (3-11); BUN 10 mg/dL (7-18); Bilirubin, Total 0.5 mg/dL (0.2-1.0); CO2 26.3 mmol/L (21.0-32.0); CREATININE 0.71 mg/dL (0.55-1.02); Calcium 9.2 mg/dL (8.5-10.1); Chloride 105 mmol/L (98-107); Glucose 80 mg/dL (70-100); Potassium 3.7 mmol/L (3.5-5.1); Sodium 141 mmol/L (136-145); TSH 0.56 uIU/mL (0.36-3.74); Total Protein 7.8 g/dL (6.4-8.2)
[2019-07-14 18:06] LABS: Salicylate < 2.8 mg/dL (2.8-20.0)
[2019-07-14 18:08] LABS: Acetaminophen < 2 ug/mL (10-30)
[2019-07-14 18:09] LABS: ETHANOL BLOOD < 3.0 mg/dL (<3)
--- NOTE | 2019-07-14 18:12 | CMSP_ITS ---
- If Service Date Differs Date of service: 07/14/19 Time of Service: 18:12 Care Management Safety Plan Tanvi is a 23 year old woman who presented to the ED after reaching out to her FISHER TRAMMEL NET case planner. She reported that she had taken 5 Ativan pills last night and also admits to and has evidence of superficial cutting on her lower leg. Tanvi has a long history of depression and has had at least one suicide attempt in the past. She is requesting voluntary admission. TANVI IS VOLUNTARY FOR INPATIENT PSYCHIATRIC STABILIZATION. Patient is appropriate in all interactions since arriving at [facility]; Pt has demonstrated appropriate coping and communication skills, has articulated her needs and concerns and is fully engaged during staff interactions. Safety plan has been established with patient, and care team, to adhere to patient goals, identify restrictions based on behavioral status, address nutrition, and determine allowed personal belongings, tools for hygiene and personal care. Determine level of activity including ambulation, level of sup ervision, visitors, and determine privileges based on behaviors and level of engagement by pt. SAFETY PLAN: 1. Will remain on suicide precautions. In Paper Clothes 2. Will remain in room under direct supervision of one-on-one staff at all times provided by [employer]; UBALDO, CRIMINAL JUSTICE INSTRUCTOR supervisor assembly department. 3. May have paper cups, plates, finger foods as well as a cardboard spoon with which to eat meals. 4. Follow [facility] Management of the Admitted Behavioral Health Patient policy. 5. Comfort bath system only. 6. No personal belongings 7. Visitors-Mother and daughter may visit. 8. Activities: 9. Bathroom privileges 10. No Phone at this time. 11. Due to VOLUNTARY status, if patient wishes to leave [facility], the [facility] warehouse production worker must be contacted to re-evaluate patient prior to patient exiting the building. Patient is currently voluntarily at [facility] and seeking inpatient admission when a bed becomes available. [facility] Frontline Mold Preparer will continue seeking placem ent. Please contact the Lead Laying And Gluing Machine Operator Combine Mechanic ([phone]) and [facility] Mold Preparer ([phone]) for any needed changes in the Safety Plan. Safety plan has been provided to interdepartmental care team.
--- NOTE | 2019-07-14 18:12 | PDOC.CMSAFED ---
- If Service Date Differs Date of service: 07/14/19 Time of Service: 18:12 Care Management Safety Plan Tanvi is a 23 year old woman who presented to the ED after reaching out to her GALLERY OR MUSEUM CURATOR field nurse case manager. She reported that she had taken 5 Ativan pills last night and also admits to and has evidence of superficial cutting on her lower leg. Tanvi has a long history of depression and has had at least one suicide attempt in the past. She is requesting voluntary admission. TANVI IS VOLUNTARY FOR INPATIENT PSYCHIATRIC STABILIZATION. Patient is appropriate in all interactions since arriving at [facility]; Pt has demonstrated appropriate coping and communication skills, has articulated her needs and concerns and is fully engaged during staff interactions. Safety plan has been established with patient, and care team, to adhere to patient goals, identify restrictions based on behavioral status, address nutrition, and determine allowed personal belongings, tools for hygiene and personal care. Determine level of activity including ambulation, level of supervision, visitors, and determine privileges based on behaviors and level of engagement by pt. SAFETY PLAN: 1. Will remain on suicide precautions. In Paper Clothes 2. Will remain in room under direct supervision of one-on-one staff at all times provided by [employer]; UBALDO, ICD 9 CODER senior applications analyst. 3. May have paper cups, plates, finger foods as well as a cardboard spoon with which to eat meals. 4. Follow [facility] Management of the Admitted Behavioral Health Patient policy. 5. Comfort bath system only. 6. No personal belongings 7. Visitors-Mother and daughter may visit. 8. Activities: 9. Bathroom privileges 10. No Phone at this time. 11. Due to VOLUNTARY status, if patient wishes to leave [facility], the [facility] composition siding worker must be contacted to re-evaluate patient prior to patient exiting the building. Patient is currently voluntarily at [facility] and seeking inpatient admission when a bed becomes available. [facility] Frontline Horticultural Services Supervisor will continue seeking placement. Please contact the Fur Farmer Souvenir Street Vendor ([phone]) and [facility] Horticultural Services Supervisor ([phone]) for any needed changes in the Safety Plan. Safety plan has been provided to interdepartmental care team.
--- NOTE | 2019-07-14 21:09 | W.PM.HP.N ---
Date of service: 07/14/19 Time of Service: 21:10 Assessment and Plan Assessment and plan (1) Suicidal ideation: Status: Acute Assessment and plan: Depression with suicidal ideation. Will admit pending transfer to facility. Note that patient is not in fact taking Cariprazine as listed in home meds, has not been on this for some time. History of Present Illness History of Present Illness Chief Complaint: suicidal Narrative: 23 female with h/o depression, off meds recently, more stress, took Ativan OD yesterday and today started cutting. medically cleared, seen by mental health, plan for voluntary admission. No bed availability, admittted here pending same. Review of Systems All systems reviewed & are unremarkable except as noted in HPI and below PFSH Medical History Allergic rhinitis Alopecia (capitis) totalis Asthma Atopic dermatitis Migraine Urinary tract infection requiring hospitalization Social History Smoking/Tobacco Use Status: Never Alcohol Intake: current Alcohol Intake frequency: holidays/special occasions only Drug use: Rarely Substance use type: does not use What type of physical activity do you participate in: walking Frequency: daily Seatbelt use: always Do you feel safe at home: Yes Do you feel safe in your relationship?: Yes Meds Home Medications and Allergies Home Medications Medication Instructions Recorded Confirmed Type albuterol sulfate [ProAir HFA] 2 puff INHALATION Q4H PRN #1 05/07/16 05/16/19 History inhaler ipratropium-albuterol 3 ml INHALATION Q3H PRN #1 box 08/09/17 07/14/19 Rx Flovent HFA 2 puff INHALATION BID #1 inh 08/12/17 05/16/19 Rx sumatriptan succinate 50 mg tablet 50 mg PO Q2H PRN 08/28/18 07/14/19 History ondansetron 4 mg PO QID PRN #10 tab 02/22/19 07/14/19 Rx cariprazine 4.5 mg capsule 4.5 mg PO DAILY 05/21/19 07/14/19 History hydroxyzine HCl 10 mg tablet 20 mg PO QHS tab 05/21/19 07/14/19 History Allergies Allergy/AdvReac Type Severity Reaction Status Date / Time citalopram AdvReac Intermediate insomnia Verified 07/14/19 16:24 ultrasound gel Allergy Intermediate Itching Uncoded 07/14/19 16:24 Exam Narrative Exam Narrative: 103/68, 87, 36.3, 18. HEENT AT/NC; neck supple; lungs clear; heart RRR; abdomen soft NT; extremites w/o edema, multiple shallow lacerations RLE; neuro flat affect, non-focal Results Labs Result diagrams: 07/14/19 16:58 07/14/19 16:58 Labs: Laboratory Results - last 24 hr 07/14/19 07/14/19 07/14/19 16:58 16:58 16:58 WBC 6.94 RBC 4.51 Hgb 12.9 Hct 39.3 MCV 87.1 MCH 28.6 MCHC 32.8 RDW 12.8 Plt Count 300 MPV 10.9 Immature Gran % 0.1 Neutrophils % 56.5 Lymphocytes % 28.7 Monocytes % 8.2 Eosinophils % 5.8 Basophils % 0.7 Absolute Neutrophils 3.92 Absolute Lymphocytes 1.99 Absolute Monocytes 0.57 Absolute Eosinophils 0.40 Absolute Basophils 0.05 Sodium 141 Potassium 3.7 Chloride 105 Carbon Dioxide 26.3 Anion Gap 9.7 BUN 10 Creatinine 0.71 Estimated GFR/1.73 m2 >= 60.00 Glucose 80 Calcium 9.2 Total Bilirubin 0.5 AST 30 ALT 57 Alkaline Phosphatase 110 Total Protein 7.8 Albumin 3.9 TSH 0.56 Salicylates < 2.8 L Acetaminophen < 2 L Ethyl Alcohol < 3.0 Last Vital Signs Temp 36.3 C L 07/14/19 16:14 Pulse 87 07/14/19 16:14 Resp 18 07/14/19 16:14 BP 103/68 07/14/19 16:14 Pulse Ox 97 07/14/19 16:14
[2019-07-14 23:00] VITALS: BP 100/69; PULSE 83; RESP 18; TEMP 36.6; O2SAT 96
[2019-07-15 09:37] VITALS: BP 100/64; PULSE 69; RESP 18; TEMP 36.8; O2SAT 95
[2019-07-15 09:52] VITALS: O2SAT 95
[2019-07-15 10:04] LABS: Bilirubin Negative (Negative); Blood Trace-intact (Negative); Clarity Cloudy (Clear); Glucose Negative (Negative); Ketones Negative (Negative); Leukocyte Esterase Small (Negative); Nitrite Negative (Negative); Specific Gravity 1.025 (1.005-1.025); Urobilinogen 0.2 EU/dL (Up TO 0.2)
[2019-07-15 10:22] LABS: *AMPHETAMINES SCREEN URINE Negative (Negative); *BARBITURATES SCREEN URINE Negative (Negative); *BENZODIAZEPINES SCREEN URINE Negative (Negative); Cannabinoids THC Negative (Negative); Cocaine Screen,Urine Negative (Negative); METHADONE URINE SCREEN Negative (Negative); OPIATES URINE SCREEN Negative (Negative)
[2019-07-15 10:24] LABS: Bacteria Many HPF (Negative); C & S Indicated? No/Sq. Contamination; Casts Negative LPF (Negative); Crystals Negative HPF (Negative); Epithelial Cells Many HPF (Negative); Mucus Moderate (Negative); WBC >50 HPF (0-5)
[2019-07-15 10:25] LABS: Tricyclic Antidepressants Negative (Negative)
--- NOTE | 2019-07-15 11:20 | PDOC.MHCN ---
Date of service: 07/15/19 Time of Service: 10:24 Mental Health Crisis Note Presenting Issue How did you arrive at the ED and why did you come: Patient's mother brought her to the emergency department to to be assessed for safety. Precipitating Factors Patient has been having suicidal thoughts and on 07/13/2019 she took 5 Ativan in attempt to kill herself. Disposition BEHAVIOR: This clinician assisted with securing a hospital bed in a psychiatric facility and did not see the patient today. EYE CONTACT: None MOOD: Unknown to this clinician. AFFECT: Unknown to this clinician. APPETITE: SLEEP(trouble falling/staying asleep: Unknown to this clinician. Plan The patient was accepted at [facility] for inpatient psychiatric treatment on a voluntary basis.
--- NOTE | 2019-07-15 13:52 | DSE_ITS ---
Date of service: 07/15/19 Time of Service: 13:52 DS: Diagnosis Discharge Diagnosis (1) Suicidal ideation: Status: Acute (2) 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: Status: Acute (3) Depression: Status: Acute Discharge Plan Disposition Patient Disposition: [facility] Condition: Serious Discharge Details Chief Complaint: PsychEval Clinical Impression: Suicidal ideation Reason For Visit: SUICIDAL Admit Date/Time: 07/14/19 21:17 Admit Provider: Elvin Vu Attending Provider: Elvin Vu Primary Care Provider: Eric Singer ED Provider: Shiloh Rm Hospital Course Hospital Course: Tanvi Scruggs is a very pleasant 23-year-old with gender identity disorder, depression, not currently on medication who has been hospitalized at psychiatric facilities for times in the past. Her most recent psychiatric hospitalization was in September 2017 at [facility]. She presented to the emergency department on 07/14/2019 reporting that the night prior, she had taken 5-10 Ativan tablets in an attempt to harm herself. On the day that she presented to the ER, she had been cutting her right lower extremity. She was medically cleared in the emergency department. She continues to verbalize intent for self-harm. She is interested in hospitalization at a psychiatric facility for stabilization. She was admitted to the Medr floor overnight for observation and to maintain her safety. She was seen by mental health. Referrals were sent to psychiatric facilities. She was accepted at [facility]. She will be transported today via [facility] department. Home Meds and New Rx's Prescriptions: Continued albuterol sulfate [ProAir HFA] 8.5 GM HFA aerosol inhaler 2 puff Inhalation Q4H PRN Qty: 1 RF: 0 ipratropium-albuterol 3 ML solution for nebulization 3 ml Inhalation Q3H PRN Qty: 1 RF: 3 Flovent HFA 120 PUFF HFA aerosol inhaler 2 puff Inhalation BID Qty: 1 RF: 2 sumatriptan succinate 50 mg tablet 50 mg PO Q2H PRNRF: 0 hydroxyzine HCl 10 mg tablet 20 mg PO QHS RF: 0 ondansetron 4 mg tablet,disintegrating 4 mg PO QID PRN (Reason: nausea and vomiting) Qty: 10 RF: 0 Discontinued Vraylar 4.5 mg capsule 4.5 mg PO DAILY RF: 0 Discharge Instructions Instructions: Suicide Prevention for Adults (DC) Stand Alone Forms: Nursing Discharge Form Activity:: Activity as Tolerated Equipment/Supplies:: No Equipment Needed Diet:: As Tolerated Discharge Orders Discharge Orders: Discharge Order (Routine); Ordered 07/15/19 Ordered By: Mary Pedraza DS: Summary Status at Discharge Functional status at discharge: independent ambulation Overall status at discharge: patient is not back to baseline Mental Status: other (Depression, suicidal intent.) Speech and Movement: speech and movement normal Mood: other (Depression, suicidal intent.) Affect: sad Exam Narrative Exam Narrative: General: 23-year-old female, short hair, facial piercing, laying in bed with head covered with blanket, responds to verbal stimuli. Answers questions appropriately. Pleasant and cooperative. HEENT: Nose piercing, pupils equal and round, EOMI, mucous membranes moist. Neck: Supple. Respiratory: Respirations appear even and unlabored, lung sounds clear to auscultation throughout. Cardiovascular: Heart has regular rate and rhythm, no murmur appreciated. GI: Normoactive bowel sounds throughout, abdomen soft, nontender on palpation. Extremities: No clubbing, cyanosis or edema. Psych Mental Status: other (Depression, suicidal intent.) Speech and Movement: speech and movement normal Mood: other (Depression, suicidal intent.) Affect: sad DS: Data Vitals/I&O Vitals and I&O: Vital Signs Temperature 36.8 C 07/15/19 09:37 Temperature Source Skin 07/15/19 09:37 Pulse 69 07/15/19 09:37 Pulse Rhythm Regular 07/15/19 09:39 Respiratory Rate 18 07/15/19 09:37 Respiratory Effort Non-Labored 07/15/19 09:39 Respiratory Depth Normal 07/15/19 09:39 Respiratory Pattern Normal 07/15/19 09:39 Blood Pressure 100/64 07/15/19 09:37 Blood Pressure Position Sitting 07/14/19 16:14 Pulse Oximetry 95 07/15/19 09:52 Oxygen Delivery Method Room Air 07/15/19 09:52 Oxygen Flow Rate 0 07/15/19 09:52 Pain Level 0 07/15/19 09:37 Intake & Output 07/14/19 07/15/19 07/15/19 23:59 11:59 23:59 Intake Total 240 / 480 240 / 480 Output Total 500 / 500 Balance -260 / -20 240 / -20 Weight 53.524 kg Intake: Oral 240 / 480 240 / 480 Output: Urine 500 / 500 Other: Urine Color Yellow Urine Appearance Clear Clear Urine Odor Normal Comment UDS collected. Voiding Methods Toilet Data Completed and Pending Labs on day of discharge: Labs from last 24 hours 07/15/19 07/15/19 07/14/19 09:47 09:30 16:58 WBC 6.94 RBC 4.51 Hgb 12.9 Hct 39.3 MCV 87.1 MCH 28.6 MCHC 32.8 RDW 12.8 Plt Count 300 MPV 10.9 Immature Gran % 0.1 Neutrophils % 56.5 Lymphocytes % 28.7 Monocytes % 8.2 Eosinophils % 5.8 Basophils % 0.7 Absolute Neutrophils 3.92 Absolute Lymphocytes 1.99 Absolute Monocytes 0.57 Absolute Eosinophils 0.40 Absolute Basophils 0.05 Sodium Potassium Chloride Carbon Dioxide Anion Gap BUN Creatinine Estimated GFR/1.73 m2 Glucose Calcium Total Bilirubin AST ALT Alkaline Phosphatase Total Protein Albumin TSH Urine Color Yellow Urine Clarity Cloudy Urine pH 6.0 Ur Specific [place] 1.025 Urine Protein Negative Urine Ketones Negative Urine Blood Trace-intact H Urine Nitrite Negative Urine Bilirubin Negative Urine Urobilinogen 0.2 Ur Leukocyte Esterase Small H Urine RBC 3-5 H Urine WBC >50 Ur Epithelial Cells Many Urine Crystals Negative Urine Bacteria Many Urine Casts Negative Urine Mucus Moderate Ur Culture Indicated? No/sq. contamination Urine Glucose Negative Salicylates Urine Opiates Screen Negative Urine Methadone Screen Negative Acetaminophen Ur Barbiturates Screen Negative Ur Tricyclics Screen Negative Ur Amphetamines Screen Negative U Benzodiazepines Scrn Negative Urine Cocaine Screen Negative Ur THC Screen Negative Ethyl Alcohol 07/14/19 07/14/19 16:58 16:58 WBC RBC Hgb Hct MCV MCH MCHC RDW Plt Count MPV Immature Gran % Neutrophils % Lymphocytes % Monocytes % Eosinophils % Basophils % Absolute Neutrophils Absolute Lymphocytes Absolute Monocytes Absolute Eosinophils Absolute Basophils Sodium 141 Potassium 3.7 Chloride 105 Carbon Dioxide 26.3 Anion Gap 9.7 BUN 10 Creatinine 0.71 Estimated GFR/1.73 m2 >= 60.00 Glucose 80 Calcium 9.2 Total Bilirubin 0.5 AST 30 ALT 57 Alkaline Phosphatase 110 Total Protein 7.8 Albumin 3.9 TSH 0.56 Urine Color Urine Clarity Urine pH Ur Specific [place] Urine Protein Urine Ketones Urine Blood Urine Nitrite Urine Bilirubin Urine Urobilinogen Ur Leukocyte Esterase Urine RBC Urine WBC Ur Epithelial Cells Urine Crystals Urine Bacteria Urine Casts Urine Mucus Ur Culture Indicated? Urine Glucose Salicylates < 2.8 L Urine Opiates Screen Urine Methadone Screen Acetaminophen < 2 L Ur Barbiturates Screen Ur Tricyclics Screen Ur Amphetamines Screen U Benzodiazepines Scrn Urine Cocaine Screen Ur THC Screen Ethyl Alcohol < 3.0 PFSH Medical History Allergic rhinitis Alopecia (capitis) totalis Asthma Atopic dermatitis Migraine Urinary tract infection requiring hospitalization Family History Mother Obstructive sleep apnea syndrome uses cpap hs Father Esophageal stricture Sister Mental disorder Depression Sister No problems noted. Brother No problems noted. Brother Asthma Social History Smoking/Tobacco Use Status: Never Alcohol Intake: current Alcohol Intake frequency: holidays/special occasions only Drug use: Rarely Substance use type: does not use What type of physical activity do you participate in: walking Frequency: daily Seatbelt use: always Do you feel safe at home: Yes Do you feel safe in your relationship?: Yes
--- NOTE | 2019-07-15 15:00 | PDOC.CMDIS ---
LACE Index Scoring Tool - Questions: Length of Stay (in days): 1 Acuity (Admit via E.D.?): Yes E.D. Visits: 7 - Answers: Total Score: 8 Risk of Readmission: Low Risk Care Management Discharge Reason for Hospitalization: Suicidal Ideation Discharge Plan: Tanvi will discharge to [facility] for Psychiatric Stabilization. She will transport via [facility], coordinated by this typewriter aligner. Patient/Family Education Needs: Review transfer considerations. - MH Services (Omit if N/A) Current MH Services: Psychiatric Inp ([facility])
== END 2019-07-15 14:56 | disposition short-term general hospital (02) ==
LOC: ER 22:57 → MS 22:57
PROVIDERS: Admitting Provider General Practice; Emergency Provider Physician Assistant; PCP Family Medicine; Visit Provider General Practice
DX: R45.851 Suicidal ideations (principal); F64.0 Transsexualism; F32.9 Major depressive disorder, single episode, unspecified; S81.811A Laceration without foreign body, right lower leg, initial encounter; X78.9XXA Intentional self-harm by unspecified sharp object, initial encounter; Z75.1 Person awaiting admission to adequate facility elsewhere; Z72.89 Other problems related to lifestyle
CPT/HCPCS: 36415; 80053; 80307; 99222; 99239; 99285; 80320; 80329; 81003; 81015; 84443; 85025; 99217; 99219; 99284; G0378

== ENCOUNTER 2019-10-03 21:43 | Emergency (ER) | payer MEDICAID, SELFPAY ==
[2019-10-03 21:50] VITALS: BP 115/81; PULSE 91; RESP 16; TEMP 36.5; O2SAT 96
--- NOTE | 2019-10-03 21:53 | W.ED.GENAD ---
Discharge Plan Disposition Patient Disposition: HOME Condition: Stable Discharge Details Chief Complaint: Sorethroat Clinical Impression: Pharyngitis Primary Care Provider: Eric Singer ED Provider: Moe Knutson Home Meds and New Rx's Prescriptions: New prednisone 20 mg tablet 60 mg PO DAILY 4 Days Qty: 12 RF: 0 amoxicillin 500 mg tablet 500 mg PO BID Qty: 20 RF: 0 Continued albuterol sulfate [ProAir HFA] 90 mcg/actuation HFA aerosol inhaler 2 puff Inhalation Q4H PRN Qty: 1 RF: 5 Flovent HFA 220 mcg/actuation HFA aerosol inhaler 2 puff Inhalation BID Qty: 1 RF: 5 azithromycin [Zithromax Z-Kale] 250 mg tablet See Rx Instructions PO .COMPLEX Qty: 6 RF: 0 methylprednisolone [Medrol (Kale)] 4 mg tablets,dose pack See Rx Instructions .Route .COMPLEX Qty: 21 RF: 0 (DME) nebulizer accessories Kit See Rx Instructions .ROUTE .MEDSUPPLY Qty: 1 RF: 0 ipratropium-albuterol 3 ML solution for nebulization 3 ml Inhalation Q3H PRN Qty: 1 RF: 3 sumatriptan succinate 50 mg tablet 50 mg PO Q2H PRNRF: 0 hydroxyzine HCl 10 mg tablet 20 mg PO QHS RF: 0 Latuda 20 mg tablet 20 mg PO DAILY RF: 0 ondansetron 4 mg tablet,disintegrating 4 mg PO QID PRN (Reason: nausea and vomiting) Qty: 10 RF: 0 Discharge Instructions Instructions: Pharyngitis (ED) Additional Instructions: follow up with your primary care provider if not better this week if you have severe worsening pain or difficulty breathing or swallowing return to the emergency department Medical Decision Making 24 yo female comes in with 3 days of sore throat and migraine similar to prior migraines she has had. She has had some mild congestion in the nose no fevers, dyspnea or difficulty swallowing. On throat exam has erythema with exudates, midline uvula, no pain over hyoid or restricted neck movements, no indications of rpa, user acceptance tester, epiglotitis on exam/history. Suspect strep and will tx. Her migraine is not the worst of her life and slowly worsened so doubt SAH. NO fevers or meningismus so doubt continuing education dean infection. Will d/c and advised f/u with pcp if not improving this week and return precautions given Differential Diagnosis Differential Diagnosis: pharyngitis, strep, migraine HPI General Mode of arrival: ambulatory. Date/Time Provider Initiated Documentation: 10/03/19 21:44. Limitations to Documentation: no limitations. Information obtained by: patient. History of Present Illness 24 year old F presents to the emergency department with the chief complaint of sore throat, described as moderate, Quality is described as aching, Patient started experiencing this day(s) (3) and it has been constant. No relieving factors improve symptom(s), No exacerbating factors reported . Patient did receive the following treatments prior to arrival, none Related Data Home Medications Medication Instructions Recorded Confirmed ipratropium-albuterol 3 ml INHALATION Q3H PRN #1 box 08/09/17 07/14/19 sumatriptan succinate 50 mg tablet 50 mg PO Q2H PRN 08/28/18 07/14/19 ondansetron 4 mg PO QID PRN #10 tab 02/22/19 07/14/19 hydroxyzine HCl 10 mg tablet 20 mg PO QHS tab 05/21/19 07/14/19 albuterol sulfate 90 mcg/actuation 2 puff INHALATION Q4H PRN #1 08/17/19 08/17/19 aerosol inhaler inhaler azithromycin 250 mg tablet See Rx Instructions PO .COMPLEX #6 08/17/19 08/17/19 tab fluticasone propionate 220 2 puff INHALATION BID #1 inh 08/17/19 08/17/19 mcg/actuation HFA aerosol inhaler methylprednisolone 4 mg tablets in See Rx Instructions .ROUTE 08/17/19 08/17/19 a dose pack .COMPLEX #21 dose pk nebulizer accessories #1 each 08/17/19 08/17/19 lurasidone 20 mg tablet 20 mg PO DAILY 09/17/19 amoxicillin 500 mg PO BID #20 tab 10/03/19 prednisone 60 mg PO DAILY 4 Days #12 tab 10/03/19 Previous Rx's Medication Instructions Recorded ipratropium-albuterol 3 ml INHALATION Q3H PRN #1 box 08/09/17 ondansetron 4 mg PO QID PRN #10 tab 02/22/19 albuterol sulfate 90 mcg/actuation 2 puff INHALATION Q4H PRN #1 08/17/19 aerosol inhaler inhaler azithromycin 250 mg tablet See Rx Instructions PO .COMPLEX #6 08/17/19 tab fluticasone propionate 220 2 puff INHALATION BID #1 inh 08/17/19 mcg/actuation HFA aerosol inhaler methylprednisolone 4 mg tablets in See Rx Instructions .ROUTE 08/17/19 a dose pack .COMPLEX #21 dose pk nebulizer accessories #1 each 08/17/19 amoxicillin 500 mg PO BID #20 tab 10/03/19 prednisone 60 mg PO DAILY 4 Days #12 tab 10/03/19 Allergies Allergy/AdvReac Type Severity Reaction Status Date / Time citalopram AdvReac Intermediate insomnia Verified 08/17/19 14:55 ultrasound gel Allergy Intermediate Itching Uncoded 08/17/19 14:55 General Stated Complaint: Sorethroat CONOR: 4 Review of Systems All systems reviewed & are unremarkable except as noted in HPI and below Constitutional Constitutional: Denies chills, Denies fever(s) and Denies weakness ENT Ears, Nose, Mouth, and Throat: Denies change in voice Cardiovascular Cardiovascular: Denies chest pain and Denies dyspnea Respiratory Respiratory: Denies cough and Denies dyspnea Gastrointestinal Gastrointestinal: Denies abdominal pain, Denies nausea and Denies vomiting Musculoskeletal Musculoskeletal: Denies joint swelling Neurologic Neurologic: Denies weakness [facility] Social History Smoking/Tobacco Use Status: Never Alcohol Intake: never Drug use: Never Substance use type: does not use What type of physical activity do you participate in: walking Frequency: daily Seatbelt use: always Do you feel safe at home: Yes Do you feel safe in your relationship?: Yes Exam Const General: no acute distress Orientation: alert HENMT Head: normal to inspection Ears: external ears normal General nose exam: external nose normal Mouth: moist mucous membranes Eyes General: appearance normal, both eyes and all related structures Neck Neck: normal visual inspection Resp Effort & Inspection: normal respiratory effort and able to speak in complete sentences Cardio Rate: regular rate Skin General skin exam: no rashes or lesions noted Neuro General: alert and oriented x3 Extrem General: normal to inspection Psych Mental Status: mental status grossly normal Course Vital Signs Vital signs: Vital Signs Temperature 36.5 C 10/03/19 21:50 Pulse 91 H 10/03/19 21:50 Respiratory Rate 16 10/03/19 21:50 Blood Pressure 115/81 10/03/19 21:50 Pulse Oximetry 96 10/03/19 21:50 Temperature 36.5 C 10/03/19 21:50 Temperature Source Skin 10/03/19 21:50 Pulse 91 H 10/03/19 21:50 Respiratory Rate 16 10/03/19 21:50 Blood Pressure 115/81 10/03/19 21:50 Blood Pressure Position Sitting 10/03/19 21:50 Pulse Oximetry 96 10/03/19 21:50 Oxygen Delivery Method Room Air 10/03/19 21:50 Oxygen Flow Rate 0 10/03/19 21:50 Pain Level 8 10/03/19 21:50
[2019-10-03] MEDS: Amoxicillin 500 MG CAP PO (22:00)
[2019-10-03] MEDS: predniSONE 20 MG TAB 60 MG PO (22:00)
== END 2019-10-03 22:00 | disposition home or self-care (01) ==
PROVIDERS: Emergency Provider Emergency Medicine; PCP Family Medicine
DX: J02.9 Acute pharyngitis, unspecified (principal)
CPT/HCPCS: 99283; J7512

== ENCOUNTER 2019-10-05 07:01 | Emergency (ER) | payer MEDICAID, SELFPAY ==
[2019-10-05 07:04] VITALS: BP 115/68; PULSE 82; RESP 20; TEMP 36.2; O2SAT 98
[2019-10-05] MEDS: Albuterol/Ipratropium 3 ML UPD VIAL UPD (07:41)
--- NOTE | 2019-10-05 07:56 | ED.GENADUL_ITS ---
Discharge Plan Disposition Patient Disposition: HOME Discharge Details Chief Complaint: RespSymp Clinical Impression: Asthma exacerbation Primary Care Provider: Eric Singer ED Provider: Carlos Domingo Home Meds and New Rx's Prescriptions: Continued albuterol sulfate [ProAir HFA] 90 mcg/actuation HFA aerosol inhaler 2 puff Inhalation Q4H PRN Qty: 1 RF: 5 Flovent HFA 220 mcg/actuation HFA aerosol inhaler 2 puff Inhalation BID Qty: 1 RF: 5 azithromycin [Zithromax Z-Kale] 250 mg tablet See Rx Instructions PO .COMPLEX Qty: 6 RF: 0 methylprednisolone [Medrol (Kale)] 4 mg tablets,dose pack See Rx Instructions .Route .COMPLEX Qty: 21 RF: 0 (DME) nebulizer accessories Kit See Rx Instructions .ROUTE .MEDSUPPLY Qty: 1 RF: 0 ipratropium-albuterol 3 ML solution for nebulization 3 ml Inhalation Q3H PRN Qty: 1 RF: 3 sumatriptan succinate 50 mg tablet 50 mg PO Q2H PRNRF: 0 hydroxyzine HCl 10 mg tablet 20 mg PO QHS RF: 0 Latuda 20 mg tablet 20 mg PO DAILY RF: 0 ondansetron 4 mg tablet,disintegrating 4 mg PO QID PRN (Reason: nausea and vomiting) Qty: 10 RF: 0 amoxicillin 500 mg tablet 500 mg PO BID Qty: 20 RF: 0 Discharge Instructions Instructions: Asthma (ED) Additional Instructions: Please contact your primary care physician to arrange follow-up. Return to the ER for any worsening or new concerning symptoms. Referrals: Eric Singer DO [Primary Care Provider] - Discharge Data Discharge Date/Time-TO BE ENTERED AT DEPARTURE: 10/05/19 08:15 Medical Decision Making 7:40 --24-year-old female with history of asthma, recent pharyngitis treated with prednisone and amoxicillin, now with asthma exacerbation. Patient is saturating well in no respiratory distress. I believe inhaler use prior to arrival did improve symptoms. I will give her prednisone dose this morning as she is yet to take her prescribed dose. Will give DuoNeb treatment and reassess. --Patient reassessed and symptoms completely resolved. Plan for outpatient follow-up. Disposition decision was made weighing the risks and benefits of hospitalization versus outpatient treatment, the risk for further decompensation, and the patient's wishes. The patient was stable and requested discharge. Prior to discharge, my usual and customary return precautions were reviewed with the patient - this included follow-up instructions and reason to return to the emergency department if condition worsens, does not improve as expected, or other new concerns arise. HPI General Mode of arrival: ambulatory . Date/Time Provider Initiated Documentation: 10/05/19 07:32 . Limitations to Documentation: no limitations . Information obtained by: patient . HPI Narrative: 24-year-old female with history of asthma, recently seen here in the emergency department for sore throat and treated with prednisone and amoxicillin which she has been taking for the past couple days, here with asthma exacerbation. Patient notes she has had a couple asthma exacerbations over the past 2 days. She states this morning she had wheeze. She took her albuterol inhaler prior to arrival which did help but she continues to feel tight. Symptoms are mild. No associated tongue or lip swelling. Patient states she typically gets asthma when she has respiratory illness. She does note sore throat has resolved. She continues to have some sinus congestion. She did not yet take her prednisone today. Related Data Home Medications Medication Instructions Recorded Confirmed ipratropium-albuterol 3 ml INHALATION Q3H PRN #1 box 08/09/17 10/05/19 sumatriptan succinate 50 mg tablet 50 mg PO Q2H PRN 08/28/18 10/05/19 ondansetron 4 mg PO QID PRN #10 tab 02/22/19 10/05/19 hydroxyzine HCl 10 mg tablet 20 mg PO QHS tab 05/21/19 10/05/19 albuterol sulfate 90 mcg/actuation 2 puff INHALATION Q4H PRN #1 08/17/19 10/05/19 aerosol inhaler inhaler azithromycin 250 mg tablet See Rx Instructions PO .COMPLEX #6 08/17/19 10/05/19 tab fluticasone propionate 220 2 puff INHALATION BID #1 inh 08/17/19 10/05/19 mcg/actuation HFA aerosol inhaler methylprednisolone 4 mg tablets in See Rx Instructions .ROUTE 08/17/19 10/05/19 a dose pack .COMPLEX #21 dose pk nebulizer accessories #1 each 08/17/19 10/05/19 lurasidone 20 mg tablet 20 mg PO DAILY 09/17/19 10/05/19 amoxicillin 500 mg PO BID #20 tab 10/03/19 10/05/19 Previous Rx's Medication Instructions Recorded ipratropium-albuterol 3 ml INHALATION Q3H PRN #1 box 08/09/17 ondansetron 4 mg PO QID PRN #10 tab 02/22/19 albuterol sulfate 90 mcg/actuation 2 puff INHALATION Q4H PRN #1 08/17/19 aerosol inhaler inhaler azithromycin 250 mg tablet See Rx Instructions PO .COMPLEX #6 08/17/19 tab fluticasone propionate 220 2 puff INHALATION BID #1 inh 08/17/19 mcg/actuation HFA aerosol inhaler methylprednisolone 4 mg tablets in See Rx Instructions .ROUTE 08/17/19 a dose pack .COMPLEX #21 dose pk nebulizer accessories #1 each 08/17/19 amoxicillin 500 mg PO BID #20 tab 10/03/19 Allergies Allergy/AdvReac Type Severity Reaction Status Date / Time citalopram AdvReac Intermediate insomnia Verified 10/05/19 07:06 ultrasound gel Allergy Intermediate Itching Uncoded 10/05/19 07:06 General Stated Complaint: RespSymp CONOR: 3 Review of Systems All systems reviewed & are unremarkable except as noted in HPI and below ENT Ears, Nose, Mouth, and Throat: Denies sore throat Respiratory Respiratory: Reports as per HPI and Reports cough PFSH Medical History Allergic rhinitis Alopecia (capitis) totalis Asthma Atopic dermatitis Migraine Urinary tract infection requiring hospitalization Family History Mother Obstructive sleep apnea syndrome uses cpap hs Father Esophageal stricture Sister Mental disorder Depression Sister No problems noted. Brother No problems noted. Brother Asthma Social History Smoking/Tobacco Use Status: Never Alcohol Intake: current Alcohol Intake frequency: holidays/special occasions only Drug use: Rarely Substance use type: marijuana What type of physical activity do you participate in: walking Frequency: daily Seatbelt use: always Do you feel safe at home: Yes Do you feel safe in your relationship?: Yes Exam Const General: cooperative and no acute distress HENMT Mouth: moist mucous membranes Eyes Conjunctivae: normal conjunctivae Sclera: normal sclerae Neck Neck: trachea midline and supple Resp Effort & Inspection: normal respiratory effort and able to speak in complete sentences Auscultation: no rales and rhonchi (Bilateral) Cardio Jugular venous pressure: no JVD Rate: regular rate and not tachycardic Rhythm: regular rhythm GI Palpation: soft, not firm, no guarding, no masses, not rigid and nontender Skin General skin exam: no rashes or lesions noted Neuro General: alert, awake and tone normal Extrem General: no edema Psych Appearance: grossly normal Mental Status: mental status grossly normal Course Vital Signs Vital signs: Vital Signs Temperature 36.2 C L 10/05/19 07:04 Pulse 82 10/05/19 07:04 Respiratory Rate 20 10/05/19 07:04 Blood Pressure 115/68 10/05/19 07:04 Pulse Oximetry 98 10/05/19 07:04 Temperature 36.2 C L 10/05/19 07:04 Temperature Source Temporal Artery Scan 10/05/19 07:04 Pulse 82 10/05/19 07:04 Respiratory Rate 20 10/05/19 07:04 Respiratory Effort Non-Labored 10/05/19 07:06 Respiratory Depth Normal 10/05/19 07:06 Blood Pressure 115/68 10/05/19 07:04 Pulse Oximetry 98 10/05/19 07:04 Oxygen Delivery Method Room Air 10/05/19 07:04 Oxygen Flow Rate 0 10/05/19 07:04 Pain Level 0 10/05/19 07:04
[2019-10-05] MEDS: predniSONE 20 MG TAB 60 MG PO (08:11)
== END 2019-10-05 08:15 | disposition home or self-care (01) ==
PROVIDERS: Emergency Provider Student in an Organized Health Care Education/Training Program; PCP Family Medicine
DX: J45.901 Unspecified asthma with (acute) exacerbation (principal)
CPT/HCPCS: 94640; 99283; J7512; J7620

== ENCOUNTER 2019-10-05 11:07 | Outpatient (CLI) | payer MEDICAID, SELFPAY ==
--- NOTE | 2019-10-05 14:21 | DI.RAD_ITS ---
EXAM: XR CHEST 2V PA LATERAL INDICATION: DYSPNEA DESPITE ADEQUATE TXT, ASTHMA EXACERBATION, J45.901, R/O INFILTRATE. COMPARISON: No exams were available for comparison TECHNIQUE: 2D digital imaging was performed. FINDINGS: There is a pectus excavatum deformity. Heart size is normal. The lungs are clear. No infiltrate or effusion is seen. Lungs appear normally inflated. IMPRESSION: Negative chest x-ray.
== END 2019-10-05 11:27 ==
PROVIDERS: PCP Family Medicine; Visit Provider Family Medicine
DX: R06.09 Other forms of dyspnea (principal); J45.901 Unspecified asthma with (acute) exacerbation; R06.2 Wheezing
CPT/HCPCS: 94640; 99283; 71046; J7512; J7620

== ENCOUNTER 2019-12-03 18:56 | Emergency (ER) | payer MEDICAID, SELFPAY ==
[2019-12-03 19:02] VITALS: BP 109/69; PULSE 93; RESP 16; TEMP 37.1; O2SAT 99
--- NOTE | 2019-12-03 19:15 | ED.GENADUL_ITS ---
Discharge Plan Disposition Patient Disposition: HOME Condition: Good Discharge Details Chief Complaint: Headache Clinical Impression: Migraine headache Primary Care Provider: Eric Singer ED Provider: Sea Gamino Home Meds and New Rx's Prescriptions: Continued albuterol sulfate [ProAir HFA] 90 mcg/actuation HFA aerosol inhaler 2 puff Inhalation Q4H PRN Qty: 1 RF: 5 Flovent HFA 220 mcg/actuation HFA aerosol inhaler 2 puff Inhalation BID Qty: 1 RF: 5 (DME) nebulizer accessories Kit See Rx Instructions .ROUTE .MEDSUPPLY Qty: 1 RF: 0 ipratropium-albuterol 3 ML solution for nebulization 3 ml Inhalation Q3H PRN Qty: 1 RF: 3 hydroxyzine HCl 10 mg tablet 20 mg PO QHS RF: 0 Discharge Instructions Instructions: Migraine Headache (ED) Additional Instructions: Follow up with your primary care provider within 1 week if you develop severe worsening pain, fevers, persistent vomit return to the emergency department Referrals: Eric Singer DO [Primary Care Provider] - Medical Decision Making <Moe Knutson MD - Last Filed: 12/03/19 19:25> 24 yo female with hx of asthma, depression, migraines, who comes in with cc of pain in the head similar to prior migraines. It has slowly been worsening since Saturday with associated intermittent n/v. not the worst of her life. No fevers, neck pain or stiffness or trauma. Has no focal deficits on exam, PERRL, eomi. Does have photophobia. Suspect migraine will tx with ivf, toradol, compazine and decadron. No findings on history or physical exam to suggest SAH, interpreter and translator infection, cavernous sinus thrombosis, cerebral venous thrombosis. Pt signed out to Dr. Gamino pending response to medications. Differential Diagnosis Differential Diagnosis: migraine, headache, cluster headache <Sea Gamino MD - Last Filed: 12/03/19 20:16> Patient signed out pending response to medications. Headache has completely resolved and patient wants to go home. Discharge. HPI <Moe Knutson MD - Last Filed: 12/03/19 19:25> General Mode of arrival: ambulatory . Date/Time Provider Initiated Documentation: 12/03/19 18:57 . Limitations to Documentation: no limitations . Information obtained by: patient . History of Present Illness 24 year old F presents to the emergency department with the chief complaint of migraine, described as moderate, and it has been constant. No relieving factors improve symptom(s), No exacerbating factors reported . Patient notes nausea/vomiting; denies fever/chills. Patient did receive the following treatments prior to arrival, none Related Data Home Medications Medication Instructions Recorded Confirmed ipratropium-albuterol 3 ml INHALATION Q3H PRN #1 box 08/09/17 12/03/19 hydroxyzine HCl 10 mg tablet 20 mg PO QHS tab 05/21/19 12/03/19 albuterol sulfate 90 mcg/actuation 2 puff INHALATION Q4H PRN #1 08/17/19 12/03/19 aerosol inhaler inhaler fluticasone propionate 220 2 puff INHALATION BID #1 inh 08/17/19 12/03/19 mcg/actuation HFA aerosol inhaler nebulizer accessories #1 each 08/17/19 10/05/19 Previous Rx's Medication Instructions Recorded ipratropium-albuterol 3 ml INHALATION Q3H PRN #1 box 08/09/17 albuterol sulfate 90 mcg/actuation 2 puff INHALATION Q4H PRN #1 08/17/19 aerosol inhaler inhaler fluticasone propionate 220 2 puff INHALATION BID #1 inh 08/17/19 mcg/actuation HFA aerosol inhaler nebulizer accessories #1 each 08/17/19 Allergies Allergy/AdvReac Type Severity Reaction Status Date / Time citalopram AdvReac Intermediate insomnia Verified 12/03/19 19:08 ultrasound gel Allergy Intermediate Itching Uncoded 12/03/19 19:08 General Stated Complaint: Headache CONOR: 3 Review of Systems <Moe Knutson MD - Last Filed: 12/03/19 19:25> All systems reviewed & are unremarkable except as noted in HPI and below Constitutional Constitutional: Denies chills, Denies fever(s) and Denies weakness Cardiovascular Cardiovascular: Denies chest pain and Denies dyspnea Respiratory Respiratory: Denies cough and Denies dyspnea Gastrointestinal Gastrointestinal: Denies abdominal pain Musculoskeletal Musculoskeletal: Denies joint swelling Neurologic Neurologic: Denies weakness Psychiatric Psychiatric: Denies depression PFSH <Moe Knutson MD - Last Filed: 12/03/19 19:25> Social History Smoking/Tobacco Use Status: Never Alcohol Intake: current Alcohol Intake frequency: holidays/special occasions only Drug use: Rarely Substance use type: marijuana What type of physical activity do you participate in: walking Frequency: daily Seatbelt use: always Do you feel safe at home: Yes Do you feel safe in your relationship?: Yes Exam <Moe Knutson MD - Last Filed: 12/03/19 19:25> Const General: no acute distress Orientation: alert HENMT Head: normal to inspection Ears: external ears normal General nose exam: external nose normal Mouth: moist mucous membranes Eyes General: appearance normal, both eyes and all related structures Neck Neck: normal visual inspection Resp Effort & Inspection: normal respiratory effort and able to speak in complete sentences Cardio Rate: regular rate Skin General skin exam: no rashes or lesions noted Neuro General: patient alert and patient oriented x3 Extrem General: normal to inspection Psych Mental Status: mental status grossly normal Course <Moe Knutson MD - Last Filed: 12/03/19 19:25> Vital Signs Vital signs: Vital Signs Temperature 37.1 C 12/03/19 19:02 Pulse 93 H 12/03/19 19:02 Respiratory Rate 16 12/03/19 19:02 Blood Pressure 109/69 12/03/19 19:02 Pulse Oximetry 99 12/03/19 19:02 Temperature 37.1 C 12/03/19 19:02 Temperature Source Tympanic 12/03/19 19:02 Pulse 93 H 12/03/19 19:02 Respiratory Rate 16 12/03/19 19:02 Respiratory Effort 12/03/19 19:13 Blood Pressure 109/69 12/03/19 19:02 Blood Pressure Position Sitting 12/03/19 19:02 Pulse Oximetry 99 12/03/19 19:02 Oxygen Delivery Method Room Air 12/03/19 19:02 Oxygen Flow Rate 0 12/03/19 19:02 Pain Level 8 12/03/19 19:11 Sign Out <Moe Knutson MD - Last Filed: 12/03/19 19:25> Sign Out Data: Sign Out Comment: follow up on response to migraine meds Last updated by Moe Knutson MD at 12/03/19 19:27
[2019-12-03] MEDS: Normal Saline 1,000 ML 1000 ML IV (19:24)
[2019-12-03] MEDS: Dexamethasone 10 MG/ML VIAL IVP (19:26)
[2019-12-03] MEDS: Prochlorperazine 10 MG/2 ML VIAL IVP (19:27)
[2019-12-03] MEDS: Ketorolac 15 MG/ML VIAL IVP (19:27)
[2019-12-03 20:22] VITALS: BP 98/60; PULSE 75; RESP 16; O2SAT 98
== END 2019-12-03 20:27 | disposition home or self-care (01) ==
PROVIDERS: Emergency Provider Emergency Medicine; PCP Family Medicine
DX: G43.909 Migraine, unspecified, not intractable, without status migrainosus (principal); R11.2 Nausea with vomiting, unspecified
CPT/HCPCS: 96361; 96374; 96375; 99284; J0780; J1100; J1885

== ENCOUNTER 2020-02-04 15:21 | Emergency (ER) | payer MEDICAID, SELFPAY ==
[2020-02-04 15:29] VITALS: BP 102/65; PULSE 76; RESP 16; TEMP 37.9; O2SAT 97
--- NOTE | 2020-02-04 15:47 | ED.GENADUL_ITS ---
Discharge Plan Disposition Patient Disposition: HOME Discharge Details Chief Complaint: PsychEval Clinical Impression: Suicidal thoughts Primary Care Provider: Eric Singer ED Provider: Carlos Domingo Home Meds and New Rx's Prescriptions: Continued albuterol sulfate [ProAir HFA] 90 mcg/actuation HFA aerosol inhaler 2 puff Inhalation Q4H PRN Qty: 1 RF: 5 (DME) nebulizer accessories Kit See Rx Instructions .ROUTE .MEDSUPPLY Qty: 1 RF: 0 ipratropium-albuterol 3 ML solution for nebulization 3 ml Inhalation Q3H PRN Qty: 1 RF: 3 hydroxyzine HCl 10 mg tablet 20 mg PO QHS RF: 0 Aristada 441 mg/1.6 mL suspension,extended rel syring 441 mg IM QMONTH RF: 0 amoxicillin-pot clavulanate [Augmentin] 500-125 mg tablet 1 tab PO Q8H Qty: 30 RF: 0 No Action cephalexin 500 mg tablet 500 mg PO BID 7 Days Qty: 14 RF: 0 phenazopyridine [Pyridium] 100 mg tablet 100 mg PO TID PRNQty: 6 RF: 0 Discharge Instructions Instructions: Depression (ED), Suicide Prevention (ED) Additional Instructions: You have a COVID-19 test pending. Please follow-up with your primary care physician. Please follow-up with [facility] Football Meister as directed by [facility] crisis screener. Return to the emergency department for any worsening or new concerning symptoms. Referrals: Eric Singer DO [Primary Care Provider] - Discharge Data Discharge Date/Time-TO BE ENTERED AT DEPARTURE: 02/04/20 20:30 Medical Decision Making 1550 --24-year-old female with history of depression here with acute exacerbation of depression and suicidal thoughts over the past 5 days. Patient is here voluntarily. She does not have a plan at this time. Patient denies ingestion or any attempted self-harm. Have contacted [facility] mental health PARTICLEBOARD FACTORY WORKER to evaluate the patient. They are aware that the patient was coming here to the emergency department for medical screening. One-to-one patient observer has been ordered and I contacted the housekeeper/custodian/laundry worker. Patient medically screened and no acute medical condition identified. Potential receiving facilities have requested the COVID-19 testing be performed. While I do not feel this is indicated given patient is asymptomatic, I will offer screening as requested. 2004 --patient seen by [facility] crisis screener -they know the patient well. They evaluated the patient and deemed stable for discha rge into care of [facility]. I had a huddle discussion with patient screener as well as [facility] care management and expressed my concern that patient is suicidal and that she would benefit from inpatient psychiatric treatment. I requested that care management discussed case with [facility] risk-management, Mary Howard reviewed the case. The management did discuss the case with Mary Howard and decision was made that patient was safe for discharge as planned by [facility]. HPI General Mode of arrival: ambulatory . Date/Time Provider Initiated Documentation: 02/04/20 15:39 . Limitations to Documentation: no limitations . Information obtained by: patient . HPI Narrative: 24-year-old female with history of depression here with acute exacerbation of depression and suicidal thoughts over the past 5 days. Patient is here voluntarily. She does not have a plan at this time. Patient denies ingestion or any attempted self-harm. Symptoms are moderate. No modifiers. No associated homicidality. Related Data Home Medications Medication Instructions Recorded Confirmed ipratropium-albuterol 3 ml INHALATION Q3H PRN #1 box 08/09/17 02/04/20 hydroxyzine HCl 10 mg tablet 20 mg PO QHS tab 05/21/19 02/04/20 albuterol sulfate 90 mcg/actuation 2 puff INHALATION Q4H PRN #1 08/17/19 02/04/20 aerosol inhaler inhaler nebulizer accessories #1 each 08/17/19 02/04/20 aripiprazole lauroxil 441 mg/1.6 441 mg IM QMONTH 12/30/19 02/04/20 mL suspension, ext.rel. IM syringe amoxicillin 500 mg-potassium 1 tab PO Q8H #30 tab 01/23/20 02/04/20 clavulanate 125 mg tablet cephalexin 500 mg PO BID 7 Days #14 tab 02/18/20 phenazopyridine [Pyridium] 100 mg PO TID PRN #6 tab 02/18/20 Previous Rx's Medication Instructions Recorded ipratropium-albuterol 3 ml INHALATION Q3H PRN #1 box 08/09/17 albuterol sulfate 90 mcg/actuation 2 puff INHALATION Q4H PRN #1 08/17/19 aerosol inhaler inhaler nebulizer accessories #1 each 08/17/19 amoxicillin 500 mg-potassium 1 tab PO Q8H #30 tab 01/23/20 clavulanate 125 mg tablet cephalexin 500 mg PO BID 7 Days #14 tab 02/18/20 phenazopyridine [Pyridium] 100 mg PO TID PRN #6 tab 02/18/20 Allergies Allergy/AdvReac Type Severity Reaction Status Date / Time citalopram AdvReac Intermediate insomnia Verified 02/18/20 18:59 ultrasound gel Allergy Intermediate Itching Uncoded 02/18/20 18:59 General Stated Complaint: PsychEval CONOR: 2 Review of Systems All systems reviewed & are unremarkable except as noted in HPI and below Constitutional Constitutional: Denies fever(s) Respiratory Respiratory: Denies cough Psychiatric Psychiatric: Reports as per HPI [facility] Medical History (Updated 02/18/20 @ 20:05 by Denisa Trujillo) Adjustment disorder with mixed anxiety and depressed mood (Chronic) per [facility] Mikayla cedillo Allergic rhinitis Alopecia (capitis) totalis Asthma Atopic dermatitis Depression (Chronic 01/24/15) 04/25 - 05/02/18 Inpatient [facility] (depression with suicidal ideation) Major depressive disorder, recurrent episode, severe (Chronic) per [facility] Mikayla cedillo Migraine Urinary tract infection requiring hospitalization Social History Smoking/Tobacco Use Status: Never Alcohol Intake: current Alcohol Intake frequency: holidays/special occasions only Drug use: Rarely Substance use type: marijuana Details: few times a month What type of physical activity do you participate in: walking Frequency: daily Seatbelt use: always Do you feel safe at home: Yes Do you feel safe in your relationship?: Yes Exam Const General: cooperative and no acute distress HENMT Mouth: moist mucous membranes Eyes Conjunctivae: normal conjunctivae Sclera: normal sclerae Neck Neck: trachea midline Resp Auscultation: clear to auscultation bilaterally, no rales, no rhonchi and no wheezes Cardio Rate: regular rate and not tachycardic Rhythm: regular rhythm GI Palpation: soft, not firm, no guarding, no masses, not rigid and nontender Skin General skin exam: no rashes or lesions noted Neuro General: patient alert and patient awake Psych Appearance: grossly normal Mental Status: other (depressed) Speech and Movement: speech and movement normal Mood: other (depressed) Attitude: cooperative Course Vital Signs Vital signs: Vital Signs Temperature 37.9 C H 02/04/20 15:29 Pulse 76 02/04/20 15:29 Respiratory Rate 16 02/04/20 15:29 Blood Pressure 102/65 02/04/20 15:29 Pulse Oximetry 97 02/04/20 15:29 Temperature 37.9 C H 02/04/20 15:29 Temperature Source Temporal Artery Scan 02/04/20 15:29 Pulse 76 02/04/20 15:29 Respiratory Rate 16 02/04/20 15:29 Respiratory Effort 02/04/20 15:35 Blood Pressure 102/65 02/04/20 15:29 Blood Pressure Position Sitting 02/04/20 15:29 Pulse Oximetry 97 02/04/20 15:29 Oxygen Delivery Method Room Air 02/04/20 15:29 Oxygen Flow Rate 0 02/04/20 15:29 Pain Level 0 02/04/20 15:29
--- NOTE | 2020-02-04 15:54 | PDOC.MHCN ---
Date of service: 02/04/20 Time of Service: 15:54 Mental Health Crisis Note Presenting Issue How did you arrive at the ED and why did you come: Client arrived to the ED for medical clearance, client was advised by mental health, to go to the hospital to get medical clearance, as client was experiencing depressed thoughts lasting longer than four days and reported to be struggling to resist self harming behaviors. Although reported no self harm, at that point. Client doesn't have a plan. Client was administered her injection (psychiatric medication earlier today and has not been taking HS medications. Precipitating Factors Patient is fearful of her ability to resist self harming behaviors and reports to have current SI. Patient denies HI. Client has used her resources, reaching out to mental health for support, which she has not done in the past. Disposition BEHAVIOR: Patient presented as calm, and cooperative with clinician. EYE CONTACT: Client maintained appropriate eye contact. MOOD: Patient reports to be depressed and fearful. AFFECT: Client had little affect, it was difficult to probate judge, due to the face mask. APPETITE: I ate breakfast, chocolate pudding for breakfast -my mouth has been hurting due to the tooth ache. SLEEP(trouble falling/staying asleep: I slept last night, after taking my medications. This was the first time in over two weeks that patient remembered to take her night time medication. Plan Client is awaiting placement, at the Care bed (a psychiatric diversion bed) . Client will not be going home. A phone call was made to [facility] to see if a bed can be opened up, at the carebed. Client's admission to the Psychiatric diversion bed ([facility] Care bed) was accepted. Client will be discharged to [facility] staff and brought to the [facility] Care bed, at 8:30 PM -January 28, 2020.. Signature Clinician's Name/Title: Bernie Reese, MANAGER FLIGHT service cooridnator
--- NOTE | 2020-02-04 16:20 | PDOC.CMSAFED ---
- If Service Date Differs Date of service: 02/04/20 Time of Service: 16:20 Care Management Safety Plan Chief Complaint: Tanvi is a 24 year old female who presents in the emergency department with an exacerbation of depression and suicidal ideation for the past 5 days. Tanvi has a significant psychiatric history with several hospitalizations and she receives services through the [facility] [employer] [facility] program at [facility]. When CM meets with Tanvi, she is tearful but calm and appropriate. She shares she met with a crisis screener at [facility] and was sent to [facility] to obtain medical clearance. CM contacts [facility] to inquire as to the plan for Tanvi. Bev from the [employer] program advises the plan is for Tanvi to go to the [facility] Care Bed. VOLUNTARY FOR INPATIENT PSYCHIATRIC STABILIZATION. Patient is appropriate in all interactions since arriving at [facility]; Patient has demonstrated appropriate coping and communication skills, has articulated her needs and concerns and is fully engaged during staff interactions. Safety plan has been established with patient, and care team, to adhere to patient goals, identify restrictions based on behavioral status, address nutrition, and determine allowed personal belongings, tools for hygiene and personal care. Determine level of activity including ambulation, level of supervision, visitors, and determine privileges based on behaviors and level of engagement by patient. SAFETY PLAN: 1. Will remain on suicide precautions and in paper clothes. 2. Will remain in room under direct supervision of one-on-one staff at all times provided by CPS; UBALDO, CLIN APPLICATION SPECIALIST computer sciences professor. 3. May have paper cups, plates, finger foods as well as a metal spoon with which to eat meals. [facility] staff will be responsible for removing spoon once Tanvi is done eating. 4. Follow [facility] Management of the Admitted Behavioral Health Patient policy. 5. Comfort bath system only. 6. No personal belongings 7. Visitors-No visitors at this time 8. Activities: None. 9. Bathroom privileges: While in the ED, must be accompanied by staff. 10. Phone: No phone privileges at this time. 11. Due to VOLUNTARY status, if patient wishes to leave [facility], the [facility] hall worker must be contacted to re-evaluate patient prior to patient exiting the building. Patient is currently voluntarily at [facility] and seeking inpatient admission when a bed becomes available. [facility] Frontline Telephone Station Repairer will continue seeking placement. Please contact the Table Worker Supervisor Acoustical Tile Carpenters ([phone]) and [facility] Telephone Station Repairer ([phone]) for any needed changes in the Safety Plan. Safety plan has been provided to interdepartmental care team.
--- NOTE | 2020-02-04 17:44 | NUR.NOTE ---
food tray ordered for patient. Nursing Note:
[2020-02-05 01:14] LABS: COVID-19 RT-PCR UVMMC Result Negative (Negative)
== END 2020-02-04 20:30 | disposition home or self-care (01) ==
PROVIDERS: Emergency Provider Student in an Organized Health Care Education/Training Program; PCP Family Medicine
DX: R45.851 Suicidal ideations (principal); F41.8 Other specified anxiety disorders; Z11.59 Encounter for screening for other viral diseases
CPT/HCPCS: 99285; U0003

== ENCOUNTER 2020-02-18 18:47 | Emergency (ER) | payer MEDICAID, SELFPAY ==
[2020-02-18 18:57] VITALS: BP 109/68; PULSE 87; RESP 16; TEMP 36.6; O2SAT 98
--- NOTE | 2020-02-18 19:03 | ED.GENADUL_ITS ---
Discharge Plan Disposition Patient Disposition: HOME Condition: Stable Discharge Details Chief Complaint: Urinary Clinical Impression: Urinary tract infection Primary Care Provider: Eric Singer ED Provider: Denisa Trujillo Home Meds and New Rx's Prescriptions: New cephalexin 500 mg tablet 500 mg PO BID 7 Days Qty: 14 RF: 0 phenazopyridine [Pyridium] 100 mg tablet 100 mg PO TID PRNQty: 6 RF: 0 No Action albuterol sulfate [ProAir HFA] 90 mcg/actuation HFA aerosol inhaler 2 puff Inhalation Q4H PRN Qty: 1 RF: 5 (DME) nebulizer accessories Kit See Rx Instructions .ROUTE .MEDSUPPLY Qty: 1 RF: 0 ipratropium-albuterol 3 ML solution for nebulization 3 ml Inhalation Q3H PRN Qty: 1 RF: 3 hydroxyzine HCl 10 mg tablet 20 mg PO QHS RF: 0 Aristada 441 mg/1.6 mL suspension,extended rel syring 441 mg IM QMONTH RF: 0 amoxicillin-pot clavulanate [Augmentin] 500-125 mg tablet 1 tab PO Q8H Qty: 30 RF: 0 Discharge Instructions Instructions: Urinary Tract Infection in Women (ED) Additional Instructions: Follow up with primary care provider in 3-5 days. Return to ED sooner if any worsening or concerns. Increase oral fluids. Please take Tylenol or Ibuprofen with food every 4-6 hours as needed for pain and swelling. Take medications as directed. The Pyridium will make your urine turn bright orange so be aware that. Please wipe front to back, abstain from sexual intercourse until treatment. Follow-up with PCP 3 to 5 days if any worsening. Return to the ED for any fever, vomiting, back pain. Take antibiotics until all are completed Referrals: Eric Singer DO [Primary Care Provider] - Medical Decision Making 24-year-old female presents with dysuria x2 days, describes pain as sharp, intermittent suprapubic pressure. Associated with nausea, no vomiting no back pain. Denies vaginal discharge or bleeding. Has an IUD not concerned for at this time or STDs. Patient placed on cephalexin 500 mg twice daily x7 days and Pyridium 100 mg p.o. 3 times daily as needed as needed dysuria. Instructed to follow-up with PCP strict return instructions discussed, verbalized understanding. Patient remained hemodynamically stable throughout stay. This text was generated using [employer] dictation system, please disregard any oddities of phrase or misspellings. Lab Data Lab results reviewed: Yes I reviewed the patient's lab results. Lab results narrative: Urine is yellow, cloudy urine pH 6.0, specific gravity greater than 1030, urine protein greater than 300, large blood, positive nitrites, small leukocytes, greater than 50 RBCs, greater than 50 WBCs, culture is pending at this time. HPI General Mode of arrival: ambulatory . Date/Time Provider Initiated Documentation: 02/18/20 19:02 . Limitations to Documentation: no limitations . Information obtained by: patient . HPI Narrative: 24-year-old female presents with dysuria x2 days, describes pain as sharp, intermittent suprapubic pressure. Associated with nausea, no vomiting no back pain. Denies vaginal discharge or bleeding. Has an IUD not concerned for at this time or STDs. Related Data Home Medications Medication Instructions Recorded Confirmed ipratropium-albuterol 3 ml INHALATION Q3H PRN #1 box 08/09/17 02/04/20 hydroxyzine HCl 10 mg tablet 20 mg PO QHS tab 05/21/19 02/04/20 albuterol sulfate 90 mcg/actuation 2 puff INHALATION Q4H PRN #1 08/17/19 02/04/20 aerosol inhaler inhaler nebulizer accessories #1 each 08/17/19 02/04/20 aripiprazole lauroxil 441 mg/1.6 441 mg IM QMONTH 12/30/19 02/04/20 mL suspension, ext.rel. IM syringe amoxicillin 500 mg-potassium 1 tab PO Q8H #30 tab 01/23/20 02/04/20 clavulanate 125 mg tablet cephalexin 500 mg PO BID 7 Days #14 tab 02/18/20 phenazopyridine [Pyridium] 100 mg PO TID PRN #6 tab 02/18/20 Previous Rx's Medication Instructions Recorded ipratropium-albuterol 3 ml INHALATION Q3H PRN #1 box 08/09/17 albuterol sulfate 90 mcg/actuation 2 puff INHALATION Q4H PRN #1 08/17/19 aerosol inhaler inhaler nebulizer accessories #1 each 08/17/19 amoxicillin 500 mg-potassium 1 tab PO Q8H #30 tab 01/23/20 clavulanate 125 mg tablet cephalexin 500 mg PO BID 7 Days #14 tab 02/18/20 phenazopyridine [Pyridium] 100 mg PO TID PRN #6 tab 02/18/20 Allergies Allergy/AdvReac Type Severity Reaction Status Date / Time citalopram AdvReac Intermediate insomnia Verified 02/18/20 18:59 ultrasound gel Allergy Intermediate Itching Uncoded 02/18/20 18:59 General Stated Complaint: Urinary CONOR: 3 Review of Systems Narrative: Constitutional: Negative for weight loss, alert and oriented, well groomed, normal body habitus, appears comfortable. HEENT: Denies trauma, headaches, blurry vision, nasal discharge, sore throat, trouble swallowing. Chest: Denies chest pain, palpitations, irregular rhythm, hypertension. Respiratory: Denies Shortness of breath, cough, hemoptysis. GI: Denies abdominal pain, nausea, vomiting, diarrhea, constipation. : Denies hematuria, flank pain, rectal bleeding. Vaginal discharge or vaginal bleeding. Positive dysuria and suprapubic tenderness. All systems reviewed & are unremarkable except as noted in HPI and below [facility] Medical History (Updated 02/18/20 @ 20:05 by Denisa Trujillo) Adjustment disorder with mixed anxiety and depressed mood (Chronic) per [facility] Mikayla cedillo Allergic rhinitis Alopecia (capitis) totalis Asthma Atopic dermatitis Depression (Chronic 01/24/15) 04/25 - 05/02/18 Inpatient [facility] (depression with suicidal ideation) Major depressive disorder, recurrent episode, severe (Chronic) per [facility] Mikayla cedillo Migraine Urinary tract infection requiring hospitalization Social History Smoking/Tobacco Use Status: Never Alcohol Intake: current Alcohol Intake frequency: holidays/special occasions only Drug use: Rarely Substance use type: marijuana Details: few times a month What type of physical activity do you participate in: walking Frequency: daily Seatbelt use: always Do you feel safe at home: Yes Do you feel safe in your relationship?: Yes Female Reproductive History Menstrual control method: progestin IUCD Exam Narrative Exam Narrative: Constitutional: Alert and oriented x3. Appears stated age. Normal body habitus. Head: Normocephalic, no trauma. Eyes: Pupils PERRLA, Red reflex noted, EOM's intact. Eyelids symmetrical without lesions, discharge, or swelling. ENT: Bilateral TM's WNL, External ear normal to inspection, no mastoid TTP, swelling, or erythema, Nasal turbinates WNL, no nasal discharge. Normal dentition, Posterior pharynx WNL, no exudate. Chest: RRR, Normal S1, S2, distal pulses intact. Resp: Lungs clear to auscultation bilaterally, no wheezes, rales, or rhonchi. Musculoskeletal: Normal gait, 5/5 strength to all four extremities. Skin: No suspicious rashes or lesions. Capillary refill less than 2 sec. Neurologic: Cranial nerves II-XII intact. Alert and oriented x 3. DTR's intact. Hematologic/Lymphatic: No ecchymosis, no lymphadenopathy. Course Vital Signs Vital signs: Vital Signs Temperature 36.6 C 02/18/20 18:57 Pulse 87 02/18/20 18:57 Respiratory Rate 16 02/18/20 18:57 Blood Pressure 109/68 02/18/20 18:57 Pulse Oximetry 98 02/18/20 18:57 Temperature 36.6 C 02/18/20 18:57 Temperature Source Tympanic 02/18/20 18:57 Pulse 87 02/18/20 18:57 Respiratory Rate 16 02/18/20 18:57 Respiratory Effort Non-Labored 02/18/20 18:59 Blood Pressure 109/68 02/18/20 18:57 Blood Pressure Position Sitting 02/18/20 18:57 Pulse Oximetry 98 02/18/20 18:57 Oxygen Delivery Method Room Air 02/18/20 18:57 Oxygen Flow Rate 0 02/18/20 18:57 Pain Level 2 02/18/20 18:57
[2020-02-18] MEDS: Ondansetron O.D.T. 4 MG TABEF PO (19:36)
[2020-02-18 19:43] LABS: Bilirubin Negative (Negative); Blood Large (Negative); Clarity Cloudy (Clear); Glucose Negative (Negative); Ketones Negative (Negative); Leukocyte Esterase Small (Negative); Nitrite Positive (Negative); Specific Gravity >= 1.030 (1.005-1.025)
[2020-02-18 19:55] LABS: Bacteria Many HPF (Negative)
[2020-02-18 19:56] LABS: C & S Indicated? Yes; RBC >50 HPF (0-2); WBC >50 HPF (0-5)
== END 2020-02-18 20:30 | disposition home or self-care (01) ==
PROVIDERS: Emergency Provider Registered Nurse Emergency; PCP Family Medicine
DX: N39.0 Urinary tract infection, site not specified (principal); R11.0 Nausea; Z87.440 Personal history of urinary (tract) infections
CPT/HCPCS: 87077; 99283; 81003; 81015; 87086; 87186

== ENCOUNTER 2020-03-04 10:11 | Emergency (ER) | payer MEDICAID, SELFPAY ==
--- NOTE | 2020-03-04 10:15 | DI.CT_ITS ---
EXAM: CT ABDOMEN PELVIS W CLINICAL HISTORY: R/O pyelonephritis TECHNIQUE: COMPARISON: No exams were available for comparison FINDINGS: CT examination of the abdomen and pelvis was performed bolus infusion of 84 cc of Omnipaque 350. Earline ges obtained through the lung bases are unremarkable. The liver and spleen appear normal. Pancreas gallbladder, bile ducts are. No significant abdominal wall hernia seen. No significant abdominal or pelvic adenopathy. Trace free pelvic fluid is noted. There is an IUD in place in the uterine midli ne. Ovaries grossly unremarkable by CT criteria. Abdominal aorta is of normal diameter and major visceral branch vessels are normal. Appendix is normal. No evidence of diverticulitis or bowel obstruction. Adrenals appear normal bilaterally. Renal cortex enhances homogeneously bilaterally, kidneys are nor mal in size and shape. 3 millimeter non-obstructing left midpole renal calculus noted. No ureteral calcification. Urinary bladder is nearly empty but may have a thickened wall, question cystitis. IMPRESSION: Nonobstructing left renal calculus. No CT evidence of pyelonephritis. Question urinary bladder wall thickening, please correlate regarding the possibility of cystitis.
[2020-03-04 10:16] VITALS: BP 110/59; PULSE 80; RESP 14; TEMP 36.7; O2SAT 97
--- NOTE | 2020-03-04 10:17 | W.ED.GENAD ---
Discharge Plan Disposition Patient Disposition: HOME Condition: Stable Discharge Details Chief Complaint: Urinary Clinical Impression: Kidney stone on left side, Cystitis Primary Care Provider: Eric Singer ED Provider: Denisa Trujillo Home Meds and New Rx's Prescriptions: New cephalexin 500 mg tablet 500 mg PO BID 7 Days Qty: 14 RF: 0 ondansetron 4 mg tablet,disintegrating 4 mg PO BID-TID PRN (Reason: nausea and vomiting) Qty: 10 RF: 0 Continued albuterol sulfate [ProAir HFA] 90 mcg/actuation HFA aerosol inhaler 2 puff Inhalation Q4H PRN Qty: 1 RF: 5 (DME) nebulizer accessories Kit See Rx Instructions .ROUTE .MEDSUPPLY Qty: 1 RF: 0 ipratropium-albuterol 3 ML solution for nebulization 3 ml Inhalation Q3H PRN Qty: 1 RF: 3 hydroxyzine HCl 10 mg tablet 20 mg PO QHS RF: 0 aripiprazole [Abilify] 10 mg tablet 10 mg PO QHS RF: 0 Aristada 441 mg/1.6 mL suspension,extended rel syring 441 mg IM .6 weeks RF: 0 ondansetron HCl [Zofran] 4 mg tablet 4 mg PO Q8H PRN (Reason: nausea and vomiting) Qty: 21 RF: 0 phenazopyridine [Pyridium] 100 mg tablet 100 mg PO TID PRNQty: 6 RF: 0 Discontinued ciprofloxacin HCl 500 mg tablet 500 mg PO BID Qty: 14 RF: 0 Discharge Instructions Instructions: Kidney Stones (ED), Flank Pain (ED) Additional Instructions: Strain all urine until follow-up with urology. You do have a nonobstructing kidney stone in the left kidney. Your bladder is also slightly inflamed please take the antibiotics as directed until completely finished. Even if you are feeling better please take medications. Take the nausea medication or Zofran 20 minutes prior to taking medications or eating or drinking. Follow up with primary care provider in 3-5 days. Return to ED sooner if any worsening or concerns. Increase oral fluids. Please take Tylenol or Ibuprofen with food every 4-6 hours as needed for pain and swelling. Stand Alone Forms: Work Release Referrals: Rolan Leon MD [ [facility] STAFF PHYSICIAN] - (Call and make an appointment for kidney stone follow-up.) Eric Singer DO [Primary Care Provider] - Discharge Data Discharge Date/Time-TO BE ENTERED AT DEPARTURE: 03/04/20 12:35 Medical Decision Making 24-year-old female presents to the emergency room with urinary type symptoms after being seen at [facility] internal medicine this morning. Patient was seen by myself on February 18, 2020 diagnosed with urinary tract infection and placed on Cipro 500 mg twice a day for 7 days, report from [facility] internal medicine as patient did not take entire prescription as prescribed patient reports taking 3 days of the Cipro, being put on another medication starting with a Z which she has been unable to hold down due to vomiting, and being sent for further evaluation for possible pyelonephritis. On initial presentation patient does have some subjective left flank pain which radiates around to her left lower quadrant, no CVA tenderness with palpation, denies fever chills, denies dysuria, positive frequency, denies vaginal discharge or bleeding. Patient does have an IUD in place. Patient does have a history of depression, adjustment disorder, asthma, panic disorder, migraines. She is an occasional drinker and uses marijuana 3 times a month. 1038: At this time work-up ordered including CBC, CMP urinalysis, urine POC, normal saline 1 L, CT abdomen pelvis with contrast to rule out pyelonephritis or other renal abnormality, and Zofran 4 mg IV push. EXAM: CT ABDOMEN PELVIS W CLINICAL HISTORY: R/O pyelonephritis TECHNIQUE: COMPARISON: No exams were available for comparison FINDINGS: CT examination of the abdomen and pelvis was performed bolus infusion of 84 cc of Omnipaque 350. Images obtained through the lung bases are unremarkable. The liver and spleen appear normal. Pancreas gallbladder, bile ducts are. No significant abdominal wall hernia seen. No significant abdominal or pelvic adenopathy. Trace free pelvic fluid is noted. There is an IUD in place in the uterine midline. Ovaries grossly unremarkable by CT criteria. Abdominal aorta is of normal diameter and major visceral branch vessels are normal. Appendix is normal. No evidence of diverticulitis or bowel obstruction. Adrenals appear normal bilaterally. Renal cortex enhances homogeneously bilaterally, kidneys are normal in size and shape. 3 millimeter non-obstructing left midpole renal calculus noted. No ureteral calcification. Urinary bladder is nearly empty but may have a thickened wall, question cystitis. IMPRESSION: Nonobstructing left renal calculus. No CT evidence of pyelonephritis. Question urinary bladder wall thickening, please correlate regarding the possibility of cystitis. 1147: Patient reevaluation, reports feeling somewhat better has received a liter of normal saline. We will give ceftriaxone 1 g IV piggyback to cover for possible cystitis. Urinalysis was within normal limits and patient has been on at least 2 different antibiotics recently. Has not completed a full course of antibiotics. Discussed CT results and kidney stone follow-up information with patient. Patient given a urine strainer and a hat and instructed to strain all urine and collect stone if passed. Placed on care management follow-up list for urology follow-up and patient given Dr. Leon's phone number and instructed to follow-up within 1 week. This text was generated using [employer] system, please disregard any oddities of phrase or misspellings. HPI General Mode of arrival: ambulatory. Date/Time Provider Initiated Documentation: 03/04/20 10:15. Information obtained by: patient and old records reviewed. HPI Narrative: 24-year-old female presents to the emergency room with urinary type symptoms after being seen at [facility] internal medicine this morning. Patient was seen by myself on February 18, 2020 diagnosed with urinary tract infection and placed on Cipro 500 mg twice a day for 7 days, report from [facility] internal medicine as patient did not take entire prescription as prescribed patient reports taking 3 days of the Cipro, being put on another medication starting with a Z which she has been unable to hold down due to vomiting, and being sent for further evaluation for possible pyelonephritis. On initial presentation patient does have some subjective left flank pain which radiates around to her left lower quadrant, no CVA tenderness with palpation, denies fever chills, denies dysuria, positive frequency, denies vaginal discharge or bleeding. Patient does have an IUD in place. Patient does have a history of depression, adjustment disorder, asthma, panic disorder, migraines. She is an occasional drinker and uses marijuana 3 times a month. Related Data Home Medications Medication Instructions Recorded Confirmed ipratropium-albuterol 3 ml INHALATION Q3H PRN #1 box 08/09/17 02/04/20 hydroxyzine HCl 10 mg tablet 20 mg PO QHS tab 05/21/19 02/04/20 albuterol sulfate 90 mcg/actuation 2 puff INHALATION Q4H PRN #1 08/17/19 02/04/20 aerosol inhaler inhaler nebulizer accessories #1 each 08/17/19 02/04/20 phenazopyridine [Pyridium] 100 mg PO TID PRN #6 tab 02/18/20 aripiprazole 10 mg tablet 10 mg PO QHS 02/23/20 aripiprazole lauroxil 441 mg/1.6 441 mg IM .6 weeks ml 02/23/20 mL suspension, ext.rel. IM syringe ondansetron HCl 4 mg tablet 4 mg PO Q8H PRN #21 tab 03/01/20 cephalexin 500 mg PO BID 7 Days #14 tab 03/04/20 ondansetron 4 mg PO BID-TID PRN #10 tab 03/04/20 Previous Rx's Medication Instructions Recorded ipratropium-albuterol 3 ml INHALATION Q3H PRN #1 box 08/09/17 albuterol sulfate 90 mcg/actuation 2 puff INHALATION Q4H PRN #1 08/17/19 aerosol inhaler inhaler nebulizer accessories #1 each 08/17/19 phenazopyridine [Pyridium] 100 mg PO TID PRN #6 tab 02/18/20 ondansetron HCl 4 mg tablet 4 mg PO Q8H PRN #21 tab 03/01/20 cephalexin 500 mg PO BID 7 Days #14 tab 03/04/20 ondansetron 4 mg PO BID-TID PRN #10 tab 03/04/20 Allergies Allergy/AdvReac Type Severity Reaction Status Date / Time citalopram AdvReac Intermediate insomnia Verified 02/18/20 18:59 ultrasound gel Allergy Intermediate Itching Uncoded 02/18/20 18:59 General CONOR: 3 Review of Systems Narrative: Constitutional: Negative for weight loss, alert and oriented, well groomed, normal body habitus, appears comfortable. HEENT: Denies trauma, headaches, blurry vision, nasal discharge, sore throat, trouble swallowing. Chest: Denies chest pain, palpitations, irregular rhythm, hypertension. Respiratory: Denies Shortness of breath, cough, hemoptysis. GI: positive left lower quadrant abdominal pain, positive nausea vomiting which started a week and a half ago, denies diarrhea, constipation. : Denies rectal bleeding. Positive failed outpatient treatment for UTI, reports left flank pain and urinary frequency. Neuro: Denies dizziness, blurry vision, weakness, syncope, headache or facial numbness. Hematologic: Denies easy bruising, intolerance to heat or cold, hair loss. [facility] Medical History Adjustment disorder with mixed anxiety and depressed mood (Chronic) per [facility] Mikayla cedillo Allergic rhinitis Alopecia (capitis) totalis Asthma Atopic dermatitis Depression (Chronic 01/24/15) 04/25 - 05/02/18 Inpatient [facility] (depression with suicidal ideation) Major depressive disorder, recurrent episode, severe (Chronic) per [facility] Mikayla cedillo Migraine Urinary tract infection requiring hospitalization Family History Mother Obstructive sleep apnea syndrome uses cpap hs Father Esophageal stricture Sister Mental disorder Depression Sister No problems noted. Brother No problems noted. Brother Asthma Social History Smoking/Tobacco Use Status: Current every day Tobacco Type: e-cigarettes Alcohol Intake: current Alcohol Intake frequency: holidays/special occasions only Drug use: Rarely Substance use type: marijuana Details: few times a month What type of physical activity do you participate in: walking Frequency: daily Seatbelt use: always Do you feel safe at home: Yes Do you feel safe in your relationship?: Yes Female Reproductive History Menstrual control method: progestin IUCD Exam Narrative Exam Narrative: Constitutional: Alert and oriented x3. Appears stated age. Normal body habitus. Head: Normocephalic, no trauma. Eyes: Pupils PERRLA, Red reflex noted, EOM's intact. Eyelids symmetrical with surrounding dry erythema, consistent with eczema, no discharge, or swelling. ENT: Bilateral TM's WNL, External ear normal to inspection, no mastoid TTP, swelling, or erythema, Nasal turbinates WNL, no nasal discharge. Normal dentition, Posterior pharynx WNL, no exudate. Chest: RRR, Normal S1, S2, distal pulses intact. Resp: Lungs clear to auscultation bilaterally, no wheezes, rales, or rhonchi. Abdomen: Soft, nondistended, hyperactive bowel sounds. : No CVA tenderness with palpation Musculoskeletal: Normal gait, 5/5 strength to all four extremities. Skin: No suspicious rashes or lesions. Capillary refill less than 2 sec. Neurologic: Cranial nerves II-XII intact. Alert and oriented x 3. DTR's intact. Hematologic/Lymphatic: No ecchymosis, no lymphadenopathy.
[2020-03-04] MEDS: Normal Saline Flush 10 ML SYR IVP (10:35)
[2020-03-04] MEDS: Normal Saline 1,000 ML 1000 ML IV (10:35)
[2020-03-04 10:38] LABS: Bilirubin Negative (Negative); Blood Negative (Negative); Clarity Clear (Clear); Glucose Negative (Negative); Ketones 15 mg/dL (Negative); Leukocyte Esterase Negative (Negative); Nitrite Negative (Negative); Specific Gravity >= 1.030 (1.005-1.025); Urobilinogen 0.2 EU/dL (Up TO 0.2); pH 6.5 (5-8)
[2020-03-04] MEDS: Ondansetron 4 MG/2 ML VIAL IVP (10:41)
[2020-03-04 10:51] LABS: Abs Immature Grans 0.01 k/cumm (0.0-0.09); Absolute Basophil Count 0.05 k/cumm (0.0-0.2); Absolute Eosinophil Count 0.29 k/cumm (0.0-0.7); Absolute Lymphocyte Count 1.33 k/cumm (1.2-3.4); Absolute Monocyte Count 0.26 k/cumm (0.11-0.7); Absolute Neutrophil Count 4.09 k/cumm (1.2-6.7); Basophils % 0.8; Eosinophils % 4.8; HCT 38.7 % (36.0-46.0); HGB 12.8 g/dL (12.0-15.5); Immature Grans % 0.2 %; Lymphocytes % 22.1; Mean Corp. HGB Concentration 33.1 g/dL (32.0-36.0); Mean Corpuscular Hemoglobin 28.4 pg (27.0-33.0); Mean Platelet Volume 11.4 fL (8.0-11.0); Monocytes % 4.3; Neutrophils % 67.8; Platelet Count 296 x1000/uL (130-400); RBC Distribution Width 12.9 % (11.7-14.6); White Blood Cell Count 6.03 k/cumm (4.4-10.8)
[2020-03-04 10:59] LABS: ALT 30 U/L (14-59); AST 19 U/L (15-37); Albumin 4.3 g/dL (3.4-5.0); Alkaline Phosphatase 115 U/L (46-116); Anion Gap 9.8 mmol/L (3-11); BUN 7 mg/dL (7-18); Bilirubin, Total 0.7 mg/dL (0.2-1.0); CO2 26.2 mmol/L (21.0-32.0); CREATININE 0.88 mg/dL (0.55-1.02); Calcium 9.3 mg/dL (8.5-10.1); Chloride 104 mmol/L (98-107); Glucose 111 mg/dL (74-106); Potassium 3.6 mmol/L (3.5-5.1); Sodium 140 mmol/L (136-145)
[2020-03-04] MEDS: Omnipaque 350 MG/ML 100 ML BTL IJ (11:04)
[2020-03-04] MEDS: Normal Saline - Diluent 50 ML VIAL IV (11:06)
[2020-03-04] MEDS: cefTRIAXone 1 GM/50 ML BAG IVPB (11:49)
--- NOTE | 2020-03-04 12:05 | NUR.NOTE ---
pt set up and educated on use of urine strainer Nursing Note:
[2020-03-04 12:24] VITALS: BP 95/46; PULSE 55; RESP 14; TEMP 36.8; O2SAT 97
--- NOTE | 2020-03-05 09:13 | NUR.NOTE ---
Nursing Note: Referral faxed to [facility] Urology for follow up. Sakshi Sim
== END 2020-03-04 12:35 | disposition home or self-care (01) ==
PROVIDERS: Emergency Provider Registered Nurse Emergency; PCP Family Medicine
DX: N30.00 Acute cystitis without hematuria (principal); N20.0 Calculus of kidney; Z87.440 Personal history of urinary (tract) infections
CPT/HCPCS: 36415; 80053; 81025; 96361; 96365; 96375; 99285; 74177; 81003; 85025; 99284; J0696; J2405; J3490

== ENCOUNTER 2020-03-05 13:08 | Emergency (ER) | payer MEDICAID, SELFPAY ==
[2020-03-05 13:11] VITALS: BP 109/69; PULSE 72; RESP 18; TEMP 37.2; O2SAT 98
--- NOTE | 2020-03-05 13:22 | ED.GENADUL_ITS ---
Discharge Plan Disposition Patient Disposition: HOME Condition: Stable Discharge Details Chief Complaint: FlankPain Clinical Impression: Dehydration Primary Care Provider: Eric Singer ED Provider: Jalen Raymond Home Meds and New Rx's Prescriptions: No Action albuterol sulfate [ProAir HFA] 90 mcg/actuation HFA aerosol inhaler 2 puff Inhalation Q4H PRN Qty: 1 RF: 5 (DME) nebulizer accessories Kit See Rx Instructions .ROUTE .MEDSUPPLY Qty: 1 RF: 0 ipratropium-albuterol 3 ML solution for nebulization 3 ml Inhalation Q3H PRN Qty: 1 RF: 3 hydroxyzine HCl 10 mg tablet 20 mg PO QHS RF: 0 aripiprazole [Abilify] 10 mg tablet 10 mg PO QHS RF: 0 Aristada 441 mg/1.6 mL suspension,extended rel syring 441 mg IM .6 weeks RF: 0 ondansetron HCl [Zofran] 4 mg tablet 4 mg PO Q8H PRN (Reason: nausea and vomiting) Qty: 21 RF: 0 phenazopyridine [Pyridium] 100 mg tablet 100 mg PO TID PRNQty: 6 RF: 0 cephalexin 500 mg tablet 500 mg PO BID 7 Days Qty: 14 RF: 0 ondansetron 4 mg tablet,disintegrating 4 mg PO BID-TID PRN (Reason: nausea and vomiting) Qty: 10 RF: 0 Medical Decision Making 24-year-old female with a history of recent urinary tract infection was treated with oral antibiotics. Seen yesterday in the emergency department for left- sided abdominal pain, found to have an unremarkable urinalysis but evidence of left 3 mm intrarenal calculus. States she has had ongoing discomfort and vom iting today. Denies any vaginal discharge or bleeding. She arrives with normal vital signs. She does not demonstrate rebound tenderness on exam but does have some mild left side and left flank tenderness. Referred for urinalysis, screening labs and ultrasound. She is given 1 L fluid bolus, Zofran, ketorolac. CBC is unremarkable, chemistries are reassuring. Urinalysis notes specific gravity 1.02 and trace ketones. No evidence of persistent UTI. Ultrasound: Bilateral nonobstructing intrarenal calculi without evidence of ureteral calculi, nor any evidence of hydronephrosis. She stable and improving. Appropriate for discharge to home. She will continue small, frequent sips of fluids. Do not feel there is an indication for her to continue the previously prescribed Keflex. Lab Data Lab results reviewed: Yes I reviewed the patient's lab results. Labs: Laboratory Results - last 24 hr 03/05/20 03/05/20 03/05/20 13:25 13:25 13:40 WBC 8.10 D RBC 4.58 Hgb 13.1 Hct 39.1 MCV 85.4 MCH 28.6 MCHC 33.5 RDW 12.8 Plt Count 296 MPV 11.2 H Immature Gran % 0.1 Neutrophils % 64.1 Lymphocytes % 24.7 Monocytes % 5.9 Eosinophils % 4.7 Basophils % 0.5 Absolute Neutrophils 5.19 Absolute Lymphocytes 2.00 Absolute Monocytes 0.48 Absolute Eosinophils 0.38 Absolute Basophils 0.04 Sodium 139 Potassium 3.7 Chloride 104 Carbon Dioxide 27.3 Anion Gap 7.7 BUN 5 L Creatinine 1.03 H Estimated GFR/1.73 m2 >= 60.00 Glucose 96 Calcium 9.3 Total Bilirubin 0.7 AST 18 ALT 23 Alkaline Phosphatase 109 Total Protein 7.8 Albumin 4.2 Urine Color Yellow Urine Clarity Clear Urine pH 6.5 Ur Specific [place] 1.020 Urine Protein Negative Urine Ketones Trace H Urine Blood Negative Urine Nitrite Negative Urine Bilirubin Negative Urine Urobilinogen 0.2 Ur Leukocyte Esterase Negative Urine Glucose Negative HPI General Mode of arrival: ambulatory . Date/Time Provider Initiated Documentation: 03/05/20 13:10 . Limitations to Documentation: no limitations . Information obtained by: patient . History of Present Illness 24 year old F presents to the emergency department with the chief complaint of Left flank pain, described as moderate and similar to prior episodes, Quality is described as dull, and is localized to the left. Patient reports no radiation. Patient started experiencing this hour(s) and it has been intermittent. No relieving factors improve symptom(s), No exacerbating factors reported . Patient notes nausea/vomiting; denies fever/chills. Patient did receive the following treatments prior to arrival, other (Tried Zofran at home) Related Data Home Medications Medication Instructions Recorded Confirmed ipratropium-albuterol 3 ml INHALATION Q3H PRN #1 box 08/09/17 03/05/20 hydroxyzine HCl 10 mg tablet 20 mg PO QHS tab 05/21/19 03/05/20 albuterol sulfate 90 mcg/actuation 2 puff INHALATION Q4H PRN #1 08/17/19 03/05/20 aerosol inhaler inhaler nebulizer accessories #1 each 08/17/19 03/05/20 phenazopyridine [Pyridium] 100 mg PO TID PRN #6 tab 02/18/20 03/05/20 aripiprazole 10 mg tablet 10 mg PO QHS 02/23/20 03/05/20 aripiprazole lauroxil 441 mg/1.6 441 mg IM .6 weeks ml 02/23/20 03/05/20 mL suspension, ext.rel. IM syringe ondansetron HCl 4 mg tablet 4 mg PO Q8H PRN #21 tab 03/01/20 03/05/20 cephalexin 500 mg PO BID 7 Days #14 tab 03/04/20 03/05/20 ondansetron 4 mg PO BID-TID PRN #10 tab 03/04/20 03/05/20 Previous Rx's Medication Instructions Recorded ipratropium-albuterol 3 ml INHALATION Q3H PRN #1 box 08/09/17 albuterol sulfate 90 mcg/actuation 2 puff INHALATION Q4H PRN #1 08/17/19 aerosol inhaler inhaler nebulizer accessories #1 each 08/17/19 phenazopyridine [Pyridium] 100 mg PO TID PRN #6 tab 02/18/20 ondansetron HCl 4 mg tablet 4 mg PO Q8H PRN #21 tab 03/01/20 cephalexin 500 mg PO BID 7 Days #14 tab 03/04/20 ondansetron 4 mg PO BID-TID PRN #10 tab 03/04/20 Allergies Allergy/AdvReac Type Severity Reaction Status Date / Time citalopram AdvReac Intermediate insomnia Verified 03/05/20 13:15 ultrasound gel Allergy Intermediate Itching Uncoded 03/05/20 13:15 General Stated Complaint: FlankPain CONOR: 3 Review of Systems Narrative: See HPI. 6 systems reviewed and otherwise negative [facility] Medical History Adjustment disorder with mixed anxiety and depressed mood (Chronic) per [facility] Mikayla cedillo Allergic rhinitis Alopecia (capitis) totalis Asthma Atopic dermatitis Depression (Chronic 01/24/15) 04/25 - 05/02/18 Inpatient [facility] (depression with suicidal ideation) Major depressive disorder, recurrent episode, severe (Chronic) per [facility] Mikayla cedillo Migraine Urinary tract infection requiring hospitalization Family History Mother Obstructive sleep apnea syndrome uses cpap hs Father Esophageal stricture Sister Mental disorder Depression Sister No problems noted. Brother No problems noted. Brother Asthma Social History Smoking/Tobacco Use Status: Current every day Tobacco Type: e-cigarettes Alcohol Intake: current Alcohol Intake frequency: holidays/special occasions only Drug use: Rarely Substance use type: marijuana Details: few times a month What type of physical activity do you participate in: walking Frequency: daily Seatbelt use: always Do you feel safe at home: Yes Do you feel safe in your relationship?: Yes Female Reproductive History Menstrual control method: progestin IUCD Exam Narrative Exam Narrative: GEN: awake, alert, oriented 3. Pleasant, well groomed, interactive. HEAD: Normocephalic, atraumatic ENT: Mucous membranes moist, oropharynx unremarkable, External ear exam unremarkable EYES: PERRL, EOMI NECK: Full ROM, no MIREYA, no menigismus CHEST/RESP: Nontender, clear to auscultation bilateral, no wheeze/rhonchi/rales CARDIOVASCULAR: RRR, no murmur, rub corine. 2+ Rad pulse bilateral ABDOMEN: Soft, left lower quadrant and left flank tenderness, no rebound, no mass. +Bowel sounds EXT: Full ROM, no edema, no rash Neuro: Grossly normal neurologic exam, conversant, interactive. Psych: Speech fluent, thoughts congruent, affect normal Course Vital Signs Vital signs: Vital Signs Temperature 37.2 C 03/05/20 13:11 Pulse 72 03/05/20 13:11 Respiratory Rate 18 03/05/20 13:11 Blood Pressure 109/69 03/05/20 13:11 Pulse Oximetry 98 03/05/20 13:11 Temperature 37.2 C 03/05/20 13:11 Temperature Source Tympanic 03/05/20 13:11 Pulse 72 03/05/20 13:11 Respiratory Rate 18 03/05/20 13:11 Respiratory Effort Non-Labored 03/05/20 13:14 Blood Pressure 109/69 03/05/20 13:11 Blood Pressure Position Sitting 03/05/20 13:11 Pulse Oximetry 98 03/05/20 13:11 Oxygen Delivery Method Room Air 03/05/20 13:11 Oxygen Flow Rate 0 03/05/20 13:11 Pain Level 8 03/05/20 13:11
[2020-03-05] MEDS: Normal Saline Flush 10 ML SYR IVP (13:25)
[2020-03-05] MEDS: Normal Saline 1,000 ML 1000 ML IV (13:25)
[2020-03-05] MEDS: Ondansetron 4 MG/2 ML VIAL IVP (13:30)
[2020-03-05 13:32] LABS: Abs Immature Grans 0.01 k/cumm (0.0-0.09); Absolute Basophil Count 0.04 k/cumm (0.0-0.2); Absolute Eosinophil Count 0.38 k/cumm (0.0-0.7); Absolute Monocyte Count 0.48 k/cumm (0.11-0.7); Absolute Neutrophil Count 5.19 k/cumm (1.2-6.7); Basophils % 0.5; Eosinophils % 4.7; HCT 39.1 % (36.0-46.0); HGB 13.1 g/dL (12.0-15.5); Immature Grans % 0.1 %; Lymphocytes % 24.7; Mean Corp. HGB Concentration 33.5 g/dL (32.0-36.0); Mean Corpuscular Hemoglobin 28.6 pg (27.0-33.0); Mean Corpuscular Volume 85.4 fL (80-95); Mean Platelet Volume 11.2 fL (8.0-11.0); Monocytes % 5.9; Neutrophils % 64.1; Platelet Count 296 x1000/uL (130-400); RBC 4.58 m/cumm (4.00-5.20); RBC Distribution Width 12.8 % (11.7-14.6)
[2020-03-05] MEDS: Ketorolac 30 MG/ML VIAL IVP (13:34)
[2020-03-05 13:45] LABS: ALT 23 U/L (14-59); AST 18 U/L (15-37); Albumin 4.2 g/dL (3.4-5.0); Alkaline Phosphatase 109 U/L (46-116); Anion Gap 7.7 mmol/L (3-11); BUN 5 mg/dL (7-18); Bilirubin, Total 0.7 mg/dL (0.2-1.0); CO2 27.3 mmol/L (21.0-32.0); CREATININE 1.03 mg/dL (0.55-1.02); Calcium 9.3 mg/dL (8.5-10.1); Chloride 104 mmol/L (98-107); Glucose 96 mg/dL (74-106); Potassium 3.7 mmol/L (3.5-5.1); Sodium 139 mmol/L (136-145); Total Protein 7.8 g/dL (6.4-8.2)
--- NOTE | 2020-03-05 13:45 | DI.US_ITS ---
EXAM: US RENAL CLINICAL HISTORY: L flank pain. TECHNIQUE: [place] scale, color and spectral Doppler were used. COMPARISON: No exams were available for comparison FINDINGS: Renal size in cm: Right: 10.8 left: 11.1 Echogenicity: Normal. Hydronephrosis: No. Cyst or mass: No. Nephrolithiasis: Bilateral nephrolithiasis. 4.3 mm nonobstructing right renal calculus. 5.4 mm nono bstructing left renal calculus. Other findings: None. Bladder:Normal. Ureteral jets: Right: Visualized and unremarkable. Left: Visualized and unremarkable. Prevoid vol:142 cc Postvoid vol:0 cc DOPPLER FINDINGS: Normal and symmetric blood flow. IMPRESSION: 1. Bilateral nephrolithiasis. No hydronephrosis. DATA REPOSITORY:
[2020-03-05 13:48] LABS: Bilirubin Negative (Negative); Blood Negative (Negative); Clarity Clear (Clear); Glucose Negative (Negative); Ketones Trace mg/dL (Negative); Leukocyte Esterase Negative (Negative); Nitrite Negative (Negative); Urobilinogen 0.2 EU/dL (Up TO 0.2); pH 6.5 (5-8)
--- NOTE | 2020-03-05 15:43 | DI.VRAD_ITS ---
PROCEDURE INFORMATION: Exam: US Retroperitoneal; Complete; Kidneys and Bladder Exam date and time: 03/05/2020 1:59 PM Age: 24 years old Clinical indication: Other: Left flank pain. HX of UTI - PT currently being treated w/ antibiotics TECHNIQUE: Imaging protocol: Real-time ultrasound of the retroperitoneum with image documentation. Complete exam focused on the kidneys and bladder. COMPARISON: US RENAL ULTRASOUND(P) ([id number]) 07/27/2015 9:01 AM FINDINGS: Right kidney: There is a 4 mm nonobstructing right renal midpole calculus. No hydronephrosis. The Left kidney: There is a nonobstructing left renal mid to lower pole calculus, 5 mm. Bladder: Prevoid bladder volume 142 cc. The the bilateral ureteral peristaltic jets are identified. IMPRESSION: No acute abnormality seen. Bilateral, nonobstructing renal calculi. COMMENTS: Preliminary interpretation is based on receipt of 87 image(s). A final report will be issued subsequently. Dictated and Authenticated by: Fina Balderas MD. Ordering:ADIEL Rao MD
[2020-03-05 16:00] VITALS: BP 112/55; PULSE 56; RESP 16; TEMP 37; O2SAT 96
== END 2020-03-05 16:08 | disposition home or self-care (01) ==
PROVIDERS: Emergency Provider Emergency Medicine; PCP Family Medicine
DX: E86.0 Dehydration (principal); R11.0 Nausea
CPT/HCPCS: 36415; 76770; 80053; 81025; 96361; 96374; 96375; 99284; 81003; 85025; J1885; J2405

== ENCOUNTER 2020-05-03 20:56 | Emergency (ER) | payer SELFPAY | END 2020-05-03 21:04 | LOC: ER 21:18 | PROVIDERS: PCP Family Medicine | DX: Z53.21 Procedure and treatment not carried out due to patient leaving prior to being seen by health care provider (principal) ==

== ENCOUNTER 2020-07-14 05:02 | Emergency (ER) | payer MEDICAID, SELFPAY ==
[2020-07-14 05:05] VITALS: BP 110/69; PULSE 80; RESP 16; TEMP 37.1; O2SAT 96
--- NOTE | 2020-07-14 05:08 | ED.GENADUL_ITS ---
Discharge Plan Disposition Patient Disposition: HOME Condition: Stable Discharge Details Clinical Impression: Migraine headache Primary Care Provider: Eric Singer ED Provider: Moe Knutson Home Meds and New Rx's Prescriptions: New ondansetron 4 mg tablet,disintegrating 4 mg PO Q8H PRN (Reason: nausea and vomiting) Qty: 30 RF: 0 Continued albuterol sulfate [ProAir HFA] 90 mcg/actuation HFA aerosol inhaler 2 puff Inhalation Q4H PRN Qty: 1 RF: 5 (DME) nebulizer accessories Kit See Rx Instructions .ROUTE .MEDSUPPLY Qty: 1 RF: 0 ipratropium-albuterol 3 ML solution for nebulization 3 ml Inhalation Q3H PRN Qty: 1 RF: 3 prochlorperazine maleate [Compazine] 10 mg tablet 10 mg PO TID PRN (Reason: nausea and vomiting) Qty: 21 RF: 0 Aristada 441 mg/1.6 mL suspension,extended rel syring 662 mg IM .q5wk RF: 0 aripiprazole [Abilify] 5 mg tablet 5 mg PO QHS RF: 0 hydroxyzine HCl 10 mg tablet See Rx Instructions PO QHS RF: 0 Discharge Instructions Instructions: Migraine Headache (ED) Additional Instructions: follow up with your primary care provider within 1 week if symptoms continue if you feel more ill, have fevers or severe worsening pain return to the emergency department Medical Decision Making 24 yo female with hx of migraines comes in stating she is having a headache typical of her past migraines. STates around midnight started to have slowly worsening head pain, did not immediately become painful. She tried taking imitrex a few hours later but then had vomit so came here. Denies recent falls or trauma, no fevers, no neck stiffness or vision changes. She has normal gait, no focal neuro deficits, CN II-XII are intact with clear speech and no meningismus. 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 Suspect recurrent migraine has had good response to decadron, toradol and compazine in the past so will give these meds and reassess. pt states she is feeling improved and would like to be discharged, stable neuro exam and still no meningismus on exam. Unsure if she still has antiemetics so one for prn use provided, return precautions given Differential Diagnosis Differential Diagnosis: migraine, tension headache, cluster headache HPI General Mode of arrival: ambulatory . Date/Time Provider Initiated Documentation: 07/14/20 05:03 . Limitations to Documentation: no limitations . Information obtained by: patient . History of Present Illness 24 year old F presents to the emergency department with the chief complaint of migraine, described as moderate, Patient started experiencing this hour(s) (5) and it has been constant. No relieving factors improve symptom(s), No exacerbating factors reported . Patient did receive the following treatments prior to arrival, other (imitrex) Related Data Home Medications Medication Instructions Recorded Confirmed ipratropium-albuterol 3 ml INHALATION Q3H PRN #1 box 08/09/17 07/14/20 albuterol sulfate 90 mcg/actuation 2 puff INHALATION Q4H PRN #1 08/17/19 07/14/20 aerosol inhaler inhaler nebulizer accessories #1 each 08/17/19 03/23/20 prochlorperazine maleate 10 mg 10 mg PO TID PRN #21 tab 03/08/20 07/14/20 tablet aripiprazole 5 mg tablet 5 mg PO QHS 05/13/20 07/14/20 aripiprazole lauroxil 441 mg/1.6 662 mg IM .q5wk ml 05/13/20 07/14/20 mL suspension, ext.rel. IM syringe hydroxyzine HCl 10 mg tablet See Rx Instructions PO QHS tab 05/13/20 07/14/20 ondansetron 4 mg PO Q8H PRN #30 tab 07/14/20 Previous Rx's Medication Instructions Recorded ipratropium-albuterol 3 ml INHALATION Q3H PRN #1 box 08/09/17 albuterol sulfate 90 mcg/actuation 2 puff INHALATION Q4H PRN #1 08/17/19 aerosol inhaler inhaler nebulizer accessories #1 each 08/17/19 prochlorperazine maleate 10 mg 10 mg PO TID PRN #21 tab 03/08/20 tablet ondansetron 4 mg PO Q8H PRN #30 tab 07/14/20 Allergies Allergy/AdvReac Type Severity Reaction Status Date / Time citalopram AdvReac Intermediate insomnia Verified 07/14/20 05:09 ultrasound gel Allergy Intermediate Itching Uncoded 07/14/20 05:09 General Stated Complaint: Headache CONOR: 3 Review of Systems All systems reviewed & are unremarkable except as noted in HPI and below Constitutional Constitutional: Denies chills, Denies fever(s) and Denies weakness Eyes Eyes: Denies loss of vision Cardiovascular Cardiovascular: Denies chest pain and Denies dyspnea Respiratory Respiratory: Denies cough and Denies dyspnea Gastrointestinal Gastrointestinal: Denies abdominal pain Genitourinary Genitourinary: Denies dysuria Musculoskeletal Musculoskeletal: Denies joint swelling Integumentary/Breasts Skin/Breast: Denies rash Neurologic Neurologic: Denies loss of vision and Denies weakness [facility] Medical History (Updated 07/14/20 @ 05:29 by Moe Knutson MD) Adjustment disorder with mixed anxiety and depressed mood per [facility] Mikayla cedillo Allergic rhinitis Alopecia (capitis) totalis Asthma Atopic dermatitis Depression (01/24/15) 04/25 - 05/02/18 Inpatient [facility] (depression with suicidal ideation) Major depressive disorder, recurrent episode, severe per [facility] Mikayla cedillo Migraine Urinary tract infection requiring hospitalization Family History Mother Obstructive sleep apnea syndrome uses cpap hs Father Esophageal stricture Sister Mental disorder Depression Sister No problems noted. Brother No problems noted. Brother Asthma Social History Smoking/Tobacco Use Status: Current every day Tobacco Type: e-cigarettes Smoking risk assessment performed?: Yes Alcohol Intake: current Alcohol Intake frequency: holidays/special occasions only Drug use: Rarely Substance use type: marijuana Details: few times a month What type of physical activity do you participate in: walking Frequency: daily Seatbelt use: always Do you feel safe at home: Yes Do you feel safe in your relationship?: Yes Female Reproductive History Menstrual control method: progestin IUCD Exam Const General: no acute distress Orientation: alert HENMT Head: normal to inspection Ears: external ears normal General nose exam: external nose normal Mouth: moist mucous membranes Eyes General: appearance normal, both eyes and all related structures Neck Neck: normal visual inspection Resp Effort & Inspection: normal respiratory effort and able to speak in complete sentences Cardio Rate: regular rate Skin General skin exam: no rashes or lesions noted Neuro General: patient alert and patient oriented x3 Extrem General: normal to inspection Psych Mental Status: mental status grossly normal Course Vital Signs Vital signs: Vital Signs Temperature 37.1 C 07/14/20 05:05 Pulse 80 07/14/20 05:05 Respiratory Rate 16 07/14/20 05:05 Blood Pressure 110/69 07/14/20 05:05 Pulse Oximetry 96 07/14/20 05:05 Temperature 37.1 C 07/14/20 05:05 Temperature Source Skin 07/14/20 05:05 Pulse 80 07/14/20 05:05 Respiratory Rate 16 07/14/20 05:05 Blood Pressure 110/69 07/14/20 05:05 Blood Pressure Position Sitting 07/14/20 05:05 Pulse Oximetry 96 07/14/20 05:05 Oxygen Delivery Method Room Air 07/14/20 05:05 Oxygen Flow Rate 0 07/14/20 05:05 Pain Level 7 07/14/20 05:05
[2020-07-14] MEDS: Normal Saline 1,000 ML 1000 ML IV (05:14)
[2020-07-14] MEDS: Ketorolac 15 MG/ML VIAL IVP (05:15)
[2020-07-14] MEDS: Dexamethasone 10 MG/ML VIAL IVP (05:16)
[2020-07-14] MEDS: Prochlorperazine 10 MG/2 ML VIAL IVP (05:16)
[2020-07-14 05:55] VITALS: BP 110/69; PULSE 80; RESP 16; TEMP 37.1; O2SAT 96
== END 2020-07-14 06:00 | disposition home or self-care (01) ==
PROVIDERS: Emergency Provider Emergency Medicine; PCP Family Medicine
DX: G43.809 Other migraine, not intractable, without status migrainosus (principal)
CPT/HCPCS: 96361; 96374; 96375; 99284; J0780; J1100; J1885

== ENCOUNTER 2020-07-15 14:43 | Outpatient (REF) | payer MEDICAID, SELFPAY ==
[2020-07-20 00:32] LABS: Patient Race White; SARS-CoV-2 RNA Undetected (Undetected); SARS-CoV-2 Specimen Source Nasal
== END 2020-07-15 15:03 ==
LOC: LBO 14:43
PROVIDERS: PCP Family Medicine; Visit Provider Nurse Practitioner Adult Health
DX: R05 Cough (principal); J45.909 Unspecified asthma, uncomplicated; R68.89 Other general symptoms and signs
CPT/HCPCS: U0003

== ENCOUNTER 2020-09-29 18:18 | Outpatient (REF) | payer MEDICAID, SELFPAY ==
[2020-10-02 10:32] LABS: COVID-19 RT-PCR Result NEGATIVE (Negative)
== END 2020-09-29 18:38 ==
LOC: LBN 18:18
PROVIDERS: PCP Family Medicine; Visit Provider Nurse Practitioner
DX: Z11.52 Encounter for screening for COVID-19 (principal)
CPT/HCPCS: U0003

== ENCOUNTER 2020-10-30 22:49 | Emergency (ER) | payer MEDICAID, SELFPAY ==
--- NOTE | 2020-10-30 22:45 | RT.EKG_ITS ---
APPROVED REPORT Exam: Resting ECG Patient Location: E HR:81 bpm ECG Measurements Heart Rate 81 AXIS DC 174 P 64 QRSd 106 QRS 46 QT 401 T -20 QTc 465 Conclusion Sinus rhythm...normal P axis, V-rate 60- 99 Probable left atrial enlargement...P >50mS, <-0.10mV V1
[2020-10-30 22:53] VITALS: BP 104/70; PULSE 84; RESP 15; TEMP 36.7; O2SAT 98
--- NOTE | 2020-10-30 22:57 | W.ED.GENAD ---
Discharge Plan Disposition Patient Disposition: HOME Condition: Stable Discharge Details Clinical Impression: Depression Primary Care Provider: Eric Singer ED Provider: Moe Knutson Home Meds and New Rx's Prescriptions: Continued ipratropium-albuterol 0.5 mg-3 mg(2.5 mg base)/3 mL solution for nebulization 3 ml Inhalation Q4H PRN (Reason: shortness of breath or wheezing) Qty: 90 RF: 3 prochlorperazine [Compazine] 25 mg suppository 25 mg LA BID PRN (Reason: nausea and vomiting) Qty: 12 RF: 0 albuterol sulfate [ProAir HFA] 90 mcg/actuation HFA aerosol inhaler 2 puff Inhalation Q4H PRN Qty: 1 RF: 5 (DME) nebulizer accessories Kit See Rx Instructions .ROUTE .MEDSUPPLY Qty: 1 RF: 0 sumatriptan succinate 50 mg tablet See Rx Instructions PO .COMPLEX Qty: 20 RF: 6 prochlorperazine maleate [Compazine] 10 mg tablet 10 mg PO TID PRN (Reason: nausea and vomiting) Qty: 21 RF: 0 Aristada 441 mg/1.6 mL suspension,extended rel syring 662 mg IM .q5wk RF: 0 aripiprazole [Abilify] 5 mg tablet 5 mg PO QHS RF: 0 hydroxyzine HCl 10 mg tablet 30 mg PO QHS RF: 0 ondansetron 4 mg tablet,disintegrating 4 mg PO Q8H PRN (Reason: nausea and vomiting) Qty: 30 RF: 0 divalproex [Depakote ER] 500 mg tablet extended release 24 hr 500 mg PO BID RF: 0 Discharge Instructions Instructions: Depression (ED) Additional Instructions: follow up with your mental health providers later today if you have worsening thoughts of wanting to harm yourself and can't contact your mental health providers return to the emergency department Medical Decision Making 25 yo female with hx of depression and migraines on depakote comes in with 1 week of worsening thoughts of self harm and about 30 minutes ago took a handful of her depakote. Her friend made her throw up almost immediately after and she threw up multiple pills. EMS was called and she was brought here. She denies any alcohol or drug use and is awake caox4 without focal deficits and clear speech. No signs of trauma, perrl. Denies any pain has mild nausea. Will obtain labs to evaluate for coingestants and give charcoal and reassess. pt remains stable, labs show valproic acid level of 70, discussed with poison control who recommended checking level and acetaminophen level at the 4 hour fred from initial labs, will recheck these and continue to monitor pt remains stable sleeping but awakens to voice and has no new complains, nausea is gone as well. Down trending valproic acid level, negative tylenol level, medically cleared to speak with mental health mental health evaluated and pt now not having si/hi states she had an emotional episode last night because her mother told her she was disowning her. Pt is currently calm and cooperative and has friends that live with her and taken her meds and will f/u with mental health as an outpatient. She is comfortable with this plan and understands indications to return to the ED Lab Data Lab results reviewed: Yes I reviewed the patient's lab results. ECG Data Attestation: I personally reviewed and interpreted this ECG (s) as follows: Prior ECG tracings: not available for review Interpretation: sinus rhythm, rate of 81, pr 174, qtc 465 HPI General Mode of arrival: ambulatory. Date/Time Provider Initiated Documentation: 10/30/20 22:55. Limitations to Documentation: no limitations. Information obtained by: patient and EMS. History of Present Illness 25 year old F presents to the emergency department with the chief complaint of attempted overdose of depakote, Patient started experiencing this minute(s) (30) and it has been constant. No relieving factors improve symptom(s), No exacerbating factors reported . Related Data Home Medications Medication Instructions Recorded Confirmed albuterol sulfate 90 mcg/actuation 2 puff INHALATION Q4H PRN #1 08/17/19 09/28/20 aerosol inhaler inhaler nebulizer accessories #1 each 08/17/19 09/28/20 prochlorperazine maleate 10 mg 10 mg PO TID PRN #21 tab 03/08/20 09/28/20 tablet aripiprazole 5 mg tablet 5 mg PO QHS 05/13/20 10/31/20 aripiprazole lauroxil 441 mg/1.6 662 mg IM .q5wk ml 05/13/20 09/28/20 mL suspension, ext.rel. IM syringe ondansetron 4 mg PO Q8H PRN #30 tab 07/14/20 10/31/20 ipratropium 0.5 mg-albuterol 3 mg 3 ml INHALATION Q4H PRN #90 ml 07/15/20 09/28/20 (2.5 mg base)/3 mL nebulization soln sumatriptan succinate 50 mg tablet See Rx Instructions PO .COMPLEX 07/29/20 09/28/20 #20 tab hydroxyzine HCl 10 mg tablet 30 mg PO QHS tab 08/03/20 10/31/20 prochlorperazine 25 mg rectal 25 mg LA BID PRN #12 ea 09/29/20 09/29/20 suppository divalproex [Depakote ER] 500 mg PO BID 10/31/20 10/31/20 Previous Rx's Medication Instructions Recorded albuterol sulfate 90 mcg/actuation 2 puff INHALATION Q4H PRN #1 08/17/19 aerosol inhaler inhaler nebulizer accessories #1 each 08/17/19 prochlorperazine maleate 10 mg 10 mg PO TID PRN #21 tab 03/08/20 tablet ondansetron 4 mg PO Q8H PRN #30 tab 07/14/20 ipratropium 0.5 mg-albuterol 3 mg 3 ml INHALATION Q4H PRN #90 ml 07/15/20 (2.5 mg base)/3 mL nebulization soln sumatriptan succinate 50 mg tablet See Rx Instructions PO .COMPLEX 07/29/20 #20 tab prochlorperazine 25 mg rectal 25 mg LA BID PRN #12 ea 09/29/20 suppository Allergies Allergy/AdvReac Type Severity Reaction Status Date / Time citalopram AdvReac Intermediate insomnia Verified 10/31/20 00:26 ultrasound gel Allergy Intermediate Itching Uncoded 10/31/20 00:26 General CONOR: 3 Review of Systems All systems reviewed & are unremarkable except as noted in HPI and below Constitutional Constitutional: Denies chills, Denies fever(s) and Denies weakness Cardiovascular Cardiovascular: Denies chest pain and Denies dyspnea Respiratory Respiratory: Denies cough and Denies dyspnea Gastrointestinal Gastrointestinal: Denies abdominal pain Musculoskeletal Musculoskeletal: Denies joint swelling Neurologic Neurologic: Denies weakness [facility] Medical History (Updated 10/31/20 @ 04:14 by Moe Knutson MD) Adjustment disorder with mixed anxiety and depressed mood per [facility] Mikayla cedillo Allergic rhinitis Alopecia (capitis) totalis Asthma Atopic dermatitis Depression (01/24/15) 04/25 - 05/02/18 Inpatient [facility] Psychiatric Services (depression with suicidal ideation) Major depressive disorder, recurrent episode, severe per [facility] Mikayla cedillo Migraine Urinary tract infection requiring hospitalization Family History Mother Obstructive sleep apnea syndrome uses cpap hs Father Esophageal stricture Sister Mental disorder Depression Sister No problems noted. Brother No problems noted. Brother Asthma Social History Smoking/Tobacco Use Status: Current every day Tobacco Type: e-cigarettes Smoking risk assessment performed?: Yes Alcohol Intake: current Alcohol Intake frequency: holidays/special occasions only Drug use: Rarely Substance use type: marijuana Details: few times a month What type of physical activity do you participate in: walking Frequency: daily Seatbelt use: always Do you feel safe at home: Yes Do you feel safe in your relationship?: Yes Female Reproductive History Menstrual control method: progestin IUCD Exam Const General: no acute distress Orientation: alert HENMT Head: normal to inspection Ears: external ears normal General nose exam: external nose normal Mouth: moist mucous membranes Eyes General: appearance normal, both eyes and all related structures Neck Neck: normal visual inspection Resp Effort & Inspection: normal respiratory effort and able to speak in complete sentences Cardio Rate: regular rate Skin General skin exam: no rashes or lesions noted Neuro General: patient alert and patient oriented x3 Extrem General: normal to inspection Psych Attitude: cooperative Thought Content: no hallucinations
[2020-10-30] MEDS: Normal Saline 1,000 ML 1000 ML IV (23:05)
[2020-10-30 23:08] LABS: BE (Venous) 2 mmol/L (-2-3); HCO3 (Venous) 26 mmol/L (23-28); O2 Sat (Venous) 96 %; TCO2 (Venous) 23 mmol/L (24-29); pCO2 (Venous) 38 mmHg (41-51); pH (Venous) 7.44 (7.31-7.41); pO2 (Venous) 75 mmHg
[2020-10-30] MEDS: Charcoal/Aqueous 50 GM TUBE PO (23:09)
[2020-10-30 23:10] LABS: Abs Immature Grans 0.02 10^3/uL (0.0-0.06); Absolute Basophil Count 0.14 10^3/uL (0.0-0.2); Absolute Eosinophil Count 0.86 10^3/uL (0.0-0.7); Absolute Lymphocyte Count 3.33 10^3/uL (1.2-3.4); Absolute Monocyte Count 0.66 10^3/uL (0.1-0.8); Absolute Neutrophil Count 5.08 10^3/uL (1.2-6.7); Basophils % 1.4; Eosinophils % 8.5; HCT 40.9 % (36.0-46.0); HGB 13.4 g/dL (11.2-15.7); Immature Grans % 0.2; Lactate 1.7 mmol/L (0.6-1.4); MCH 28.6 pg (27.0-33.0); MCHC 32.8 % (32.0-36.0); MCV 87.4 fL (80-95); MPV 10.8 fL (8.0-11.0); Monocytes % 6.5; Neutrophils % 50.4; Nucleated RBC 0 %; Platelet Count 365 10^3/uL (130-400); RBC 4.68 10^6/uL (3.93-5.22); RDW 12.4 % (11.7-14.6); RDW-SD 39.8 fL; WBC 10.09 10^3/uL (4.4-10.8)
[2020-10-30] MEDS: Ondansetron 4 MG/2 ML VIAL IVP (23:10)
[2020-10-30 23:15] LABS: Bilirubin Negative (Negative); Blood Negative (Negative); Clarity Clear (Clear); Glucose Negative (Negative); Ketones Negative (Negative); Leukocyte Esterase Negative (Negative); Nitrite Negative (Negative); Specific Gravity 1.015 (1.005-1.025); Urobilinogen 0.2 EU/dL (Up TO 0.2)
[2020-10-30 23:19] LABS: Source Nasopharynx
[2020-10-30 23:25] LABS: *AMPHETAMINES SCREEN URINE Negative (Negative); *BARBITURATES SCREEN URINE Negative (Negative); *BENZODIAZEPINES SCREEN URINE Negative (Negative); Cannabinoids THC Negative (Negative); Cocaine Screen,Urine Negative (Negative); METHADONE URINE SCREEN Negative (Negative); OPIATES URINE SCREEN Negative (Negative)
[2020-10-30 23:26] LABS: Salicylate < 2.8 mg/dL (<2.8)
[2020-10-30 23:31] LABS: PTT Activated 24.5 sec (21.0-27.5); Prothrombin Time 10.5 sec (9.3-11.0)
[2020-10-30 23:31] LABS: Tricyclic Antidepressants Negative (Negative)
[2020-10-30 23:37] LABS: Lipase 115 U/L (73-393); Magnesium 2.3 mg/dL (1.8-2.4); TSH (W/Ref FT4) 4.22 uIU/mL (0.36-3.74)
--- NOTE | 2020-10-30 23:38 | PDOC.CMSAFED ---
- If Service Date Differs Date of service: 10/30/20 Time of Service: 23:38 Care Management Safety Plan Status: Voluntary Chief Complaint: Tanvi is a 25 year old female who presents in the emergency department after taking an overdosed of prescribed medication (Depakote) in an attempted suicide. A friend encouraged her to vomit shortly after and she threw up several pills . Tanvi has a significant psychiatric history with several hospitalizations for depression and suicidal ideation and she receives services through the [employer] program at [facility]. CM will respond to ED to assess patient after patient has been medically cleared and assessed by screener. If screener deems patient meets criteria for psychiatric stabilization CM will facilitate interdepartmental huddle with [facility] screener for safety planning considerations and meet with patient to review [facility] policy and safety plan, establish individual wishes for treatment and maintain patient rights. In the interim; please note safety plan below to guide patient care while awaiting further assessment in the ED. SAFETY PLAN: 1. Will remain on suicide precautions and in paper clothes. 2. Will remain in room under direct supervision of one-on-one staff at all times provided by [employer], [employer] campus executive director. 3. May have paper cups, plates, finger foods as well as a cardboard spoon with which to eat meals. 4. Follow [facility] Management of the Admitted Behavioral Health Patient policy. 5. Comfort bath system only. 6. No personal belongings 7. No visitors. 8. No Phone contact at this time. 9. Due to VOLUNTARY status, if patient wishes to leave [facility], staff will contact [facility] Crisis Screener ([phone]) and On-Call Tour Coordinator ([phone]) as soon as possible. In the event of elopement, notify [facility] Police ([phone]). If deemed appropriate for inpatient psychiatric care, safety plan will be established with patient, and care team, to adhere to patient goals, identify restrictions based on behavioral status, address nutrition, and determine allowed personal belongings, tools for hygiene and personal care. As well plan will determine level of activity including ambulation, level of supervision, visitors, and determine privileges based on level of acuity, behaviors and level of engagement by patient.
[2020-10-30 23:40] LABS: ALT 52 U/L (14-59); AST 36 U/L (15-37); Albumin 4.4 g/dL (3.4-5.0); Alkaline Phosphatase 133 U/L (46-116); Anion Gap 12.7 mmol/L (3-11); BUN 7 mg/dL (7-18); Bilirubin, Direct 0.05 mg/dL (0.00-0.20); Bilirubin, Total 0.4 mg/dL (0.2-1.0); CO2 25.3 mmol/L (21.0-32.0); CREATININE 0.8 mg/dL (0.55-1.02); Calcium 9.7 mg/dL (8.5-10.1); Chloride 103 mmol/L (98-107); Creatine Kinase 137 U/L (26-192); Glucose 98 mg/dL (74-106); Potassium 3.6 mmol/L (3.5-5.1); Sodium 141 mmol/L (136-145); Total Protein 8.4 g/dL (6.4-8.2)
[2020-10-30 23:47] LABS: ETHANOL BLOOD < 3.0 mg/dL (<3)
[2020-10-30 23:52] LABS: Acetaminophen < 2 ug/mL (10-30)
[2020-10-30 23:56] LABS: COVID-19 PCR Negative (Negative); Influenza A PCR Negative (Negative); Influenza B PCR Negative (Negative); RSV PCR Negative (Negative)
[2020-10-31] VITALS (35 sets, daily range): BP systolic 85–101; BP diastolic 46–68; PULSE 62–89; RESP 11–20; O2SAT 94–98
[2020-10-31 00:03] LABS: VALPROIC ACID 70.6 ug/mL (50-100)
[2020-10-31 00:15] LABS: FREE T4 1.38 ng/dL (0.76-1.46)
[2020-10-31 03:44] LABS: VALPROIC ACID 53.9 ug/mL (50-100)
[2020-10-31 04:04] LABS: Acetaminophen < 2 ug/mL (10-30)
--- NOTE | 2020-10-31 05:04 | PDOC.MHCN ---
Date of service: 10/31/20 Time of Service: 05:04 Mental Health Crisis Note Presenting Issue How did you arrive at the ED and why did you come: Client arrived at [facility] ED via [employer] after attempting to harm herself by taking 5 of her divalproex. Precipitating Factors Client currently denies SI/ HI with no plan or intent. Disposition BEHAVIOR: Client is sitting up in hospital bed in proper hospital attire when this global technical writer arrives via zoom. Client is tearful throughout the interview with this global technical writer, however answers all of the questions that are being asked of her. EYE CONTACT: Client makes good eye contact. MOOD: Clients mood appears to be depressed. AFFECT: Flat affect APPETITE: Client states that she has been eating good. SLEEP(trouble falling/staying asleep: Client states that she has been sleeping good. Plan Safety plan put in place with Doctor and client. Client will go home and try to get some rest. All sharps and medication have been locked up. Client will contact casework supervisor when [facility] opens in the morning. If client gets home and feels like she is going to harm herself again she is going to call [facility] ES and talk with clinician. Signature Clinician's Name/Title: Kym Nascimento, [facility] Emergency clinician
--- NOTE | 2020-10-31 05:07 | NUR.NOTE ---
Nursing Note: pt given back all belongings , 3 bags. All items accounted for. Pt using cell phone to call his mother, talking on phone with her.
== END 2020-10-31 05:50 | disposition home or self-care (01) ==
PROVIDERS: Emergency Provider Emergency Medicine; PCP Family Medicine
DX: F32.9 Major depressive disorder, single episode, unspecified (principal); T42.6X2A Poisoning by other antiepileptic and sedative-hypnotic drugs, intentional self-harm, initial encounter; Z20.822 Contact with and (suspected) exposure to COVID-19
CPT/HCPCS: 80053; 80307; 81025; 82550; 82805; 83690; 87637; 93005; 99285; 80164; 80320; 80329; 81003; 82248; 83605; 83735; 84439; 84443; 85025; 85610; 85730; 93010; 99175; 99284; J2405

== ENCOUNTER 2020-12-15 21:01 | Emergency (ER) | payer MEDICAID, SELFPAY ==
[2020-12-15 21:06] VITALS: BP 118/80; PULSE 75; RESP 16; TEMP 36.5; O2SAT 98
--- NOTE | 2020-12-15 21:21 | ED.GENADUL_ITS ---
Discharge Plan Disposition Patient Disposition: HOME Condition: Stable Discharge Details Clinical Impression: Cephalgia Primary Care Provider: Eric Singer ED Provider: Chon Gibbs Home Meds and New Rx's Prescriptions: Continued ipratropium-albuterol 0.5 mg-3 mg(2.5 mg base)/3 mL solution for nebulization 3 ml Inhalation Q4H PRN (Reason: shortness of breath or wheezing) Qty: 90 RF: 3 ondansetron 4 mg tablet,disintegrating 4 mg PO Q8H PRN (Reason: nausea and vomiting) Qty: 30 RF: 0 prochlorperazine maleate [Compazine] 10 mg tablet 10 mg PO TID PRN (Reason: nausea and vomiting) Qty: 60 RF: 5 sumatriptan succinate 100 mg tablet See Rx Instructions PO .COMPLEX Qty: 12 RF: 5 Aimovig Autoinjector 70 mg/mL auto-injector 70 mg subcut QMONTH Qty: 1 RF: 6 albuterol sulfate [ProAir HFA] 90 mcg/actuation HFA aerosol inhaler 2 puff Inhalation Q4H PRN Qty: 1 RF: 5 (DME) nebulizer accessories Kit See Rx Instructions .ROUTE .MEDSUPPLY Qty: 1 RF: 0 aripiprazole [Abilify] 5 mg tablet 5 mg PO QHS RF: 0 hydroxyzine HCl 10 mg tablet 30 mg PO QHS RF: 0 lorazepam [Ativan] 1 mg tablet 1 mg PO DAILY PRNRF: 0 Aristada 662 mg/2.4 mL suspension,extended rel syring See Rx Instructions IM PER PKG DIR RF: 0 fluoxetine [Prozac] 20 mg capsule 20 mg PO DAILY RF: 0 Discharge Instructions Instructions: General Headache (ED) Additional Instructions: Please take your current medications, fill the sumatriptan prescription tomorrow as directed by your neurologist. Watch for new or worsening symptoms and return to the ER for any concerns. Otherwise I recommend reaching out your primary care provider or neurologist tomorrow to discuss outpatient reevaluation. Medical Decision Making 25-year-old female transgender patient with a history of recurrent migraines, followed by neurology, presents for evaluation of a migraine that began 2 days ago, came on slowly, global but worse in the front, feels very typical to their typical migraine. There was a change to increase the sumatriptan the pharmacies were closed. Denies recent illness or trauma. No fever or stiff neck. Patient reports that occasionally migraine is not controlled with typical medications requiring ER visit. Typically IV medications including Toradol helps. The patient appears well, nontoxic, neurologically intact. Will obtain IV access, give 10 IV Reglan, 1 L normal saline, 25 IV Benadryl and 60 IV Toradol. Upon reevaluation patient reports that the nausea has resolved completely with pain has not changed dramatically. Will try IV Tylenol. Upon reevaluation patient reports that the nausea has not returned. Pain is improving but not resolved completely. Patient feels as though the improvement is enough to be discharged home and would rather be discharged from the ER at this time. Patient remains neurologically intact, appears well, nontoxic and agreed this to be a reasonable plan. Patient given standard return precautions otherwise will reach out to their neurologist and/or primary care provider tomorrow. Medical Records Medical records reviewed: Yes I reviewed the patient's medical records. HPI General Mode of arrival: ambulatory . Date/Time Provider Initiated Documentation: 12/15/20 21:14 . Limitations to Documentation: no limitations . Information obtained by: patient . HPI Narrative: This is a 25-year-old female with past medical history that includes adjustment disorder, anxiety, depression, asthma, transgender female to male, migraines, presenting to the ER for she describes as a typical migraine that began 2 days ago. Patient is evaluated by a neurologist and as of today the sumatriptan hand was supposed to be doubled but pharmacies were closed and could not belt picker. Patient reports global headache that began 2 days ago, gradual, since that time has waxed and waned. 8 out of 10 currently. Denies visual changes, neck pain, fever, recent illness or trauma. Denies chest pain, shortness of breath, abdominal pain. Reports nausea without vomiting. Denies change in bowel or bladder function, denies numbness, tingling, weakness. No additional concerns or complaints at this time Related Data Home Medications Medication Instructions Recorded Confirmed albuterol sulfate 90 mcg/actuation 2 puff INHALATION Q4H PRN #1 08/17/19 12/15/20 aerosol inhaler inhaler nebulizer accessories #1 each 08/17/19 12/15/20 aripiprazole 5 mg tablet 5 mg PO QHS 05/13/20 12/15/20 ipratropium 0.5 mg-albuterol 3 mg 3 ml INHALATION Q4H PRN #90 ml 07/15/20 12/15/20 (2.5 mg base)/3 mL nebulization soln hydroxyzine HCl 10 mg tablet 30 mg PO QHS tab 08/03/20 12/15/20 aripiprazole lauroxil 662 mg/2.4 See Rx Instructions IM PER PKG DIR 11/07/20 12/15/20 mL suspension, ext.rel. IM syringe fluoxetine 20 mg capsule 20 mg PO DAILY 11/07/20 12/15/20 lorazepam 1 mg tablet 1 mg PO DAILY PRN 11/07/20 12/15/20 erenumab-aooe 70 mg/mL 70 mg SUBCUT QMONTH #1 ea 12/15/20 12/15/20 subcutaneous auto-injector ondansetron 4 mg disintegrating 4 mg PO Q8H PRN #30 tab 12/15/20 12/15/20 tablet prochlorperazine maleate 10 mg 10 mg PO TID PRN #60 tab 12/15/20 12/15/20 tablet sumatriptan succinate 100 mg tablet See Rx Instructions PO .COMPLEX 12/15/20 12/15/20 #12 tab Previous Rx's Medication Instructions Recorded albuterol sulfate 90 mcg/actuation 2 puff INHALATION Q4H PRN #1 08/17/19 aerosol inhaler inhaler nebulizer accessories #1 each 08/17/19 ipratropium 0.5 mg-albuterol 3 mg 3 ml INHALATION Q4H PRN #90 ml 07/15/20 (2.5 mg base)/3 mL nebulization soln erenumab-aooe 70 mg/mL 70 mg SUBCUT QMONTH #1 ea 12/15/20 subcutaneous auto-injector ondansetron 4 mg disintegrating 4 mg PO Q8H PRN #30 tab 12/15/20 tablet prochlorperazine maleate 10 mg 10 mg PO TID PRN #60 tab 12/15/20 tablet sumatriptan succinate 100 mg tablet See Rx Instructions PO .COMPLEX 12/15/20 #12 tab Allergies Allergy/AdvReac Type Severity Reaction Status Date / Time citalopram AdvReac Intermediate insomnia Verified 12/15/20 21:10 ultrasound gel Allergy Intermediate Itching Uncoded 12/15/20 21:10 General Stated Complaint: Headache CONOR: 3 Review of Systems Constitutional Constitutional: Denies fever(s), Reports headache(s) and Denies weakness Eyes Eyes: Denies change in vision ENT Ears, Nose, Mouth, and Throat: Reports headache(s) and Denies neck pain Cardiovascular Cardiovascular: Denies chest pain and Denies dyspnea Respiratory Respiratory: Denies cough and Denies dyspnea Gastrointestinal Gastrointestinal: Denies abdominal pain, Reports nausea and Denies vomiting Musculoskeletal Musculoskeletal: Denies back pain, Denies neck pain, Denies numbness and Denies tingling Integumentary/Breasts Skin/Breast: Denies rash Neurologic Neurologic: Reports headache(s), Denies numbness, Denies tingling and Denies weakness Psychiatric Psychiatric: Reports anxiety and Reports depression Endocrine Endocrine: Denies fatigue [facility] Medical History Adjustment disorder with mixed anxiety and depressed mood per [facility] Mikayla cedillo Allergic rhinitis Alopecia (capitis) totalis Asthma Atopic dermatitis Depression (01/24/15) 04/25 - 05/02/18 Inpatient [facility] Psychiatric Services (depression with suicidal ideation) [id number] transgender person Preferred name: Teodora He/Him pronouns Major depressive disorder, recurrent episode, severe per [facility] Mikayla cedillo Pulmonary valve prolapse (09/13/14) cardiology eval 12/22. F/u echo in 5 years Urinary tract infection requiring hospitalization Family History Mother Obstructive sleep apnea syndrome uses cpap hs Father Esophageal stricture Diabetes Sister Mental disorder Depression Brother Asthma Social History Smoking/Tobacco Use Status: Current every day Smoking risk assessment performed?: Yes Alcohol Intake: current Alcohol Intake frequency: holidays/special occasions only Drug use: Rarely Substance use type: marijuana Details: few times a month What type of physical activity do you participate in: walking Frequency: daily Seatbelt use: always Do you feel safe at home: Yes Do you feel safe in your relationship?: Yes Female Reproductive History Menstrual control method: progestin IUCD Exam Const General: cooperative, healthy appearing, comfortable and no acute distress Orientation: alert, awake and oriented x3 HENMT Head: normal to inspection, normocephalic and atraumatic Face and sinus: normal facial exam Mouth: moist mucous membranes Eyes General: appearance normal, both eyes and all related structures Alignment and Position: alignment normal Periorbital: periorbital findings normal Eyelids: eyelids normal Conjunctivae: conjunctivae normal Sclera: sclerae normal Pupils: PERRL EOM: EOM intact bilaterally Direct ophthalmoscopy: normal light reflex Neck Neck: normal visual inspection, full ROM, no meningeal signs, trachea midline, supple and nontender Resp Effort & Inspection: normal respiratory effort and able to speak in complete sentences Auscultation: clear to auscultation bilaterally Cardio Rate: regular rate Rhythm: regular rhythm Skin General skin exam: no rashes or lesions noted Neuro General: patient alert, patient awake, patient oriented x3, moves all extremities and no focal motor deficits Cranial Nerves: CN's II-XI intact bilaterally Cognition: normal cognition Gait: normal gait Motor: muscle tone normal throughout Sensory Exam: no sensory deficits noted Extrem General: normal to inspection and full ROM Psych Appearance: grossly normal Mental Status: mental status grossly normal Course Vital Signs Vital signs: Vital Signs Temperature 36.5 C 12/15/20 21:06 Pulse 75 12/15/20 21:06 Respiratory Rate 16 12/15/20 21:06 Blood Pressure 118/80 12/15/20 21:06 Pulse Oximetry 98 12/15/20 21:06 Temperature 36.5 C 12/15/20 21:06 Temperature Source Skin 12/15/20 21:06 Pulse 75 12/15/20 21:06 Respiratory Rate 16 12/15/20 21:06 Respiratory Effort Non-Labored 12/15/20 21:08 Blood Pressure 118/80 12/15/20 21:06 Blood Pressure Position Sitting 12/15/20 21:06 Pulse Oximetry 98 12/15/20 21:06 Oxygen Delivery Method Room Air 12/15/20 21:06 Oxygen Flow Rate 0 12/15/20 21:06 Pain Level 8 12/15/20 21:09
[2020-12-15] MEDS: Metoclopramide 10 MG/2 ML VIAL IVP (21:31)
[2020-12-15] MEDS: diphenhydrAMINE 50 MG/ML VIAL 25 MG IVP (21:31)
[2020-12-15] MEDS: Ketorolac 30 MG/ML VIAL IVP (21:31)
[2020-12-15] MEDS: Normal Saline 1,000 ML 1000 ML IV (21:32)
[2020-12-15] MEDS: ACETAMINOPHEN 1,000 MG/100 ML BTL 400 MG IVPB (22:15)
[2020-12-15 22:51] VITALS: BP 97/61; PULSE 73; RESP 14; O2SAT 96
== END 2020-12-15 23:12 | disposition home or self-care (01) ==
PROVIDERS: Emergency Provider Physician Assistant; PCP Family Medicine
DX: G43.809 Other migraine, not intractable, without status migrainosus (principal)
CPT/HCPCS: 96361; 96374; 96375; 99284; 99283; J0131; J1200; J1885; J2765

== ENCOUNTER 2021-01-16 03:41 | Outpatient (RCR) | payer MEDICAID, SELFPAY ==
--- NOTE | 2021-01-16 13:45 | HOLTER_ITS ---
APPROVED REPORT Conclusion Is a 48-hour monitor ordered for indication of presyncope The patient was in normal sinus rhythm for the majority the recording with an average heart rate of 7 6 bpm. There were no runs of significant ectopy and a total of 6 PVCs. There are no episodes of atrial fibrillation, no pauses greater than 3 seconds and no evidence of hig h-grade heart block. There were no patient triggered events.
== END 2021-02-06 23:59 | disposition home or self-care (01) ==
LOC: RT 03:41
PROVIDERS: PCP Family Medicine; Visit Provider Family Medicine
DX: R55 Syncope and collapse (principal); I49.3 Ventricular premature depolarization
CPT/HCPCS: 93225; 93226

== ENCOUNTER 2021-02-17 16:04 | Outpatient (REF) | payer MEDICAID, SELFPAY ==
--- NOTE | 2021-02-17 14:30 | PAPFT_PTH ---
PATIENT: Gonzalo Scruggs LOC: [facility] U#:[id number] AGE/SX: 25/F ROOM: RE02/17/[address]: JULISSA Cade : 1995 BED: DIS: 02/17/2021 SPEC #: [id number] RECD: 02/17/21 18:31 STATUS: MEERA RERajeev #: [id number] LEIDA: 02/17/21 14:[address]: Claudia Godinez DEPT: [facility] Cytology RECD BY: Daphnie Baeza ENTERED: 02/17/21 18:32 SP TYPE: PAPFT OTHR DR: Eric Singer DO Tissues: 1 - CX/ENDOCX FOR PAP SMEARS Procedures: PAP THIN PREP/[facility] Screening Comments: [id number]
== END 2021-02-17 16:05 | disposition home or self-care (01) ==
LOC: LBN 16:04
PROVIDERS: PCP Family Medicine; Visit Provider Nurse Practitioner Family
DX: Z12.4 Encounter for screening for malignant neoplasm of cervix (principal)
CPT/HCPCS: 88142

== ENCOUNTER 2021-03-20 02:13 | Outpatient (CLI) | payer MEDICAID, SELFPAY ==
--- NOTE | 2021-03-20 07:30 | DI.US_ITS ---
Exam(s) US RENAL EXAM: US RENAL CLINICAL HISTORY: monitoring left renal calculus,FLANK PAIN,LT KIDNEY STONE,R10.9 TECHNIQUE: Ultrasound of both kidneys performed using standard protocol. COMPARISON: CT CT ABDOMEN PELVIS W from 03/04/[address] ABDOMEN PELVIS W from 03/04/2020 US US RENAL from 03/05/2020 FINDINGS: RIGHT KIDNEY: Measures 9.8 cm in length. No cysts evident. Normal cortical thickness and corticomedullary different iation .No solid masses There is a 4 millimeter nonobstructive echogenic focus approximately midpole level LEFT KIDNEY: Measures 10.6 cm in length. No cysts evident. Normal cortical thickness and corticomedullary differe ntiaion. No solids masses. There is a 4 millimeter nonobstructive echogenic focus the midpole level. URINARY BLADDER: Prevoid volume is 156 cc Postvoid volume is 0 cc No evidence of bladder mass nor diverticuli. Ureterovesical jets: Both identified and appear symmetrical IMPRESSION: 1. There appears to be a single nonobstructive 4 millimeter calculus in each kidney. There is no hy dronephrosis. 2. No renal cyst or solid renal masses. No perinephric fluid evident. 3. No significant findings in the urinary bladder. Bladder empties completely. DATA REPOSITORY:
== END 2021-03-20 02:33 ==
PROVIDERS: PCP Family Medicine; Visit Provider Nurse Practitioner Gerontology
DX: N20.0 Calculus of kidney (principal)
CPT/HCPCS: 76770

== ENCOUNTER 2021-04-17 14:26 | Emergency (ER) | payer MEDICAID, SELFPAY ==
[2021-04-17 14:29] VITALS: PULSE 97; RESP 16; TEMP 37.3; O2SAT 96
--- NOTE | 2021-04-17 15:11 | DI.US_ITS ---
Exam(s) US OB 1ST TRIMESTER EXAM: US OB 1ST TRIMESTER CLINICAL HISTORY: approx. 6.5 weeks , bleeding, ok to modify to correct order. COMPARISON: No exams were available for comparison TECHNIQUE: Transabdominal Transvaginal first trimester obstetrical ultrasound performed. FINDINGS: A gestational sac is noted within the endometrium. No pole or yolk sac is seen. The station a ll sac diameter corresponds to 6 weeks 0 days. There is a small amount of fluid around the endometri um. Uterus measures 8.2 x 3.6 x 4.6 cm. The ovaries are normal in size. There is corpus luteum cys t on the right ovary. There is no free fluid. No a cup is seen. Heart Rate: !ErrorBPM IMPRESSION: Gestational sac measuring 6 weeks 0 days without evidence of pole. DATA REPOSITORY:
--- NOTE | 2021-04-17 15:12 | ED.GENADUL_ITS ---
Discharge Plan Disposition Patient Disposition: HOME Condition: Stable Discharge Details Clinical Impression: Incomplete miscarriage Primary Care Provider: Eric Singer ED Provider: Moe Knutson Home Meds and New Rx's Prescriptions: Continued ipratropium-albuterol 0.5 mg-3 mg(2.5 mg base)/3 mL solution for nebulization 3 ml Inhalation Q4H PRN (Reason: shortness of breath or wheezing) Qty: 90 RF: 3 ondansetron 4 mg tablet,disintegrating 4 mg PO Q8H PRN (Reason: nausea and vomiting) Qty: 30 RF: 0 albuterol sulfate [ProAir HFA] 90 mcg/actuation HFA aerosol inhaler 2 puff Inhalation Q4H PRN Qty: 1 RF: 5 (DME) nebulizer accessories Kit See Rx Instructions .ROUTE .MEDSUPPLY Qty: 1 RF: 0 hydroxyzine HCl 10 mg tablet 30 mg PO QHS RF: 0 fluoxetine [Prozac] 20 mg capsule 20 mg PO DAILY RF: 0 prochlorperazine maleate [Compazine] 10 mg tablet 10 mg PO TID PRN (Reason: nausea and vomiting) Qty: 60 RF: 5 Discharge Instructions Instructions: Miscarriage (ED) Additional Instructions: at this time it appears you are having a miscarriage if you don't receive a call from [facility] tomorrow afternoon call their office to arrange an appointment if you have severe abdomen pain, feel severe weakness or difficulty breathing return to the emergency department Medical Decision Making 25 yo female who states she is about 6.5 weeks comes in with chief complaint of vaginal bleeding. SHe had a dating u/s by obgyn on 04/14 and showed a gestational sac. She had been doing well but a few hours ago started to have intermittent vaginal bleeding, never had this issue or any issues during the first per the patient. Denies fevers, abdomen pain or cramping. She is hemodynamically stable without tenderness on exam speaking in full sentences. Doubt significant anemia given well appearance and lack of symptoms such as weakness or dyspnea but will check cbc and also obtain u/s to evaluate for possible completed and less likely ectopic. She is stable and we do not have a exam room available, she is deferring vaginal exam at this time and has capacity to make her own decisions. once an exam room is available will proceed with vaginal exam. pt remains stable, she has no new symptoms, no abdomen pain. cbc reassuring, hcg over 7000and u/s per tech shows empty gestational sac no evidence of ectopic or other concerning findings. Awaiting vrad report. Discussed with patient and she gives consent to pelvic exam. Nursing to set patient up and will perfrom exam while vrad report pending pelvic exam performed with yanely kenyon rn as plastic parts designer at bedside, had no discharge and os was closed without tenderness and no active bleeding on exam, u/s report still pending u/s shows likely nonviable and is rh positive. Discussed with Dr. myles who will have her office call her tomorrow to arrange expedited follow up. Discussed with pt and results, she is stable and understands results. Will d/c and return precautions given Differential Diagnosis Differential Diagnosis: threatened , completed Medical Records Medical records reviewed: Yes I reviewed the patient's medical records. Imaging Data Radiologic Study: Attestation: I personally reviewed and interpreted this imaging study as follows: Imaging: Ultrasound Radiologist's impression: IMPRESSION: Intrauterine gestational sac with no pole or heart rate identified consistent with a non-viable . The sac diameter corresponds to a gestational age of 6 weeks. A small subchorionic hemorrhage is suspected. Lab Data Lab results reviewed: Yes I reviewed the patient's lab results. HPI General Mode of arrival: ambulatory . Date/Time Provider Initiated Documentation: 04/17/21 14:36 . Limitations to Documentation: no limitations . Information obtained by: patient . History of Present Illness 25 year old F presents to the emergency department with the chief complaint of vaginal bleeding, described as moderate, Patient reports no radiation. Patient started experiencing this hour(s) (3) and it has been intermittent. No relieving factors improve symptom(s), No exacerbating factors reported . Patient notes no other symptoms.. Patient did receive the following treatments prior to arrival, none Related Data Home Medications Medication Instructions Recorded Confirmed albuterol sulfate 90 mcg/actuation 2 puff INHALATION Q4H PRN #1 08/17/19 04/17/21 aerosol inhaler inhaler nebulizer accessories #1 each 08/17/19 04/03/21 ipratropium 0.5 mg-albuterol 3 mg 3 ml INHALATION Q4H PRN #90 ml 07/15/20 04/17/21 (2.5 mg base)/3 mL nebulization soln hydroxyzine HCl 10 mg tablet 30 mg PO QHS tab 08/03/20 04/17/21 fluoxetine 20 mg capsule 20 mg PO DAILY 11/07/20 04/17/21 ondansetron 4 mg disintegrating 4 mg PO Q8H PRN #30 tab 12/15/20 04/17/21 tablet prochlorperazine maleate 10 mg 10 mg PO TID PRN #60 tab 12/19/20 04/17/21 tablet Previous Rx's Medication Instructions Recorded albuterol sulfate 90 mcg/actuation 2 puff INHALATION Q4H PRN #1 08/17/19 aerosol inhaler inhaler nebulizer accessories #1 each 08/17/19 ipratropium 0.5 mg-albuterol 3 mg 3 ml INHALATION Q4H PRN #90 ml 07/15/20 (2.5 mg base)/3 mL nebulization soln ondansetron 4 mg disintegrating 4 mg PO Q8H PRN #30 tab 12/15/20 tablet prochlorperazine maleate 10 mg 10 mg PO TID PRN #60 tab 12/19/20 tablet Allergies Allergy/AdvReac Type Severity Reaction Status Date / Time citalopram AdvReac Intermediate insomnia Verified 04/17/21 14:33 ultrasound gel Allergy Intermediate Itching Uncoded 04/17/21 14:33 General Stated Complaint: Abd Prob CONOR: 3 Review of Systems All systems reviewed & are unremarkable except as noted in HPI and below Constitutional Constitutional: Denies chills, Denies fever(s) and Denies weakness Cardiovascular Cardiovascular: Denies chest pain and Denies dyspnea Respiratory Respiratory: Denies cough and Denies dyspnea Gastrointestinal Gastrointestinal: Denies abdominal pain, Denies nausea and Denies vomiting Neurologic Neurologic: Denies weakness [facility] Medical History (Updated 04/17/21 @ 18:21 by Moe Knutson MD) Adjustment disorder with mixed anxiety and depressed mood per [facility] Mikayla cedillo Allergic rhinitis Alopecia (capitis) totalis Asthma Atopic dermatitis Depression (01/24/15) 04/25 - 05/02/18 Inpatient [facility] (depression with suicidal ideation) [id number] transgender person Preferred name: Teodora He/Him pronouns Kidney stones Major depressive disorder, recurrent episode, severe per [facility] Mikayla cedillo Pulmonary valve prolapse (09/13/14) cardiology eval 12/22. F/u echo in 5 years Urinary tract infection requiring hospitalization Family History Mother Obstructive sleep apnea syndrome uses cpap hs Father Esophageal stricture Diabetes Sister Mental disorder Depression Brother Asthma Social History Smoking/Tobacco Use Status: Former Tobacco Use Tobacco: How many years used: 1 Quit status: quit date established Smoking risk assessment performed?: Yes Alcohol Intake: former Drug use: Current Sobriety Substance use type: marijuana Details: few times a month What type of physical activity do you participate in: walking Frequency: daily Seatbelt use: always Do you feel safe at home: Yes Do you feel safe in your relationship?: Yes Female Reproductive History Menstrual control method: progestin IUCD Exam Const General: no acute distress Orientation: alert HENMT Head: normal to inspection Ears: external ears normal General nose exam: external nose normal Mouth: moist mucous membranes Eyes General: appearance normal, both eyes and all related structures Neck Neck: normal visual inspection Resp Effort & Inspection: normal respiratory effort and able to speak in complete sentences Cardio Rate: regular rate GI Palpation: soft and nontender Skin General skin exam: no rashes or lesions noted Neuro General: patient alert and patient oriented x3 Extrem General: normal to inspection Psych Mental Status: mental status grossly normal Course Vital Signs Vital signs: Vital Signs Temperature 37.3 C 04/17/21 14:29 Pulse 97 H 04/17/21 14:29 Respiratory Rate 16 04/17/21 14:29 Pulse Oximetry 96 04/17/21 14:29 Temperature 37.3 C 04/17/21 14:29 Temperature Source Temporal Artery Scan 04/17/21 14:29 Pulse 97 H 04/17/21 14:29 Respiratory Rate 16 04/17/21 14:29 Respiratory Effort Non-Labored 04/17/21 14:34 Blood Pressure Position Sitting 04/17/21 14:29 Pulse Oximetry 96 04/17/21 14:29 Oxygen Delivery Method Room Air 04/17/21 14:29 Oxygen Flow Rate 0 04/17/21 14:29 Pain Level 0 04/17/21 14:29
[2021-04-17 15:56] LABS: Abs Immature Grans 0.02 10^3/uL (0.0-0.06); Absolute Basophil Count 0.05 10^3/uL (0.0-0.2); Absolute Lymphocyte Count 1.96 10^3/uL (1.2-3.4); Absolute Monocyte Count 0.55 10^3/uL (0.1-0.8); Absolute Neutrophil Count 5.29 10^3/uL (1.2-6.7); Basophils % 0.6; Eosinophils % 2.5; HCT 39.2 % (36.0-46.0); HGB 12.9 g/dL (11.2-15.7); Immature Grans % 0.2; Lymphocytes % 24.3; MCH 28.6 pg (27.0-33.0); MCHC 32.9 % (32.0-36.0); MCV 86.9 fL (80-95); MPV 10.9 fL (8.0-11.0); Monocytes % 6.8; Neutrophils % 65.6; Nucleated RBC 0 %; Platelet Count 279 10^3/uL (130-400); RBC 4.51 10^6/uL (3.93-5.22); RDW 12.6 % (11.7-14.6); RDW-SD 40.1 fL; WBC 8.07 10^3/uL (4.4-10.8)
[2021-04-17 16:34] LABS: HCG Quant, Pregnancy 7918 mIU/mL (1-3)
--- NOTE | 2021-04-17 17:04 | DI.VRAD_ITS ---
PROCEDURE INFORMATION: Exam: US First Trimester, Transabdominal Exam date and time: 04/17/2021 3:24 PM Age: 25 years old Clinical indication: Lmp or gestational age (in weeks): Unknown; Other: Bleeding; ; Patient HX: [facility], ultrasound showed empty gestational sac in uterus measuring 1.06 mm TECHNIQUE: Imaging protocol: Real-time transabdominal obstetrical ultrasound of the maternal pelvis and a first trimester , less than 14 weeks 0 days, with image documentation. COMPARISON: ME OB US 2-3 TRIMESTER TRANSABD*P 10/07/2015 3:52 PM FINDINGS: GESTATION: Gestation: There is an intrauterine gestational sac within the fundal aspect of the uterus. However, the sac appears empty with no yolk sac or pole identified. Embryonic/ heart rate: no heart rate is identified. Extra-embryonic membranes/Placenta: There is a small crescentic hypoechoic collection likely representing a small subchorionic hemorrhage measuring approximately 5 mm in length and 2 mm in short axis diameter. Amniotic fluid: Amniotic and coelomic fluid are normal for gestational age. BIOMETRY: Gestational age (AUA): 6 weeks based on the gestational sac diameter. Mean sac diameter: The mean sac diameter is 12.3 mm. MATERNAL: Uterus: The uterus measures 8.2 x 3.6 x 4.6 cm. Cervix: Unremarkable. Right adnexa: The right ovary measures 3.3 x 2.6 x 1.9 cm. There is a 1.4 x 0.9 x 0.7 cm right adnexal cyst. Left adnexa: The left ovary measures 2.7 x 2.4 x 1.5 cm. Intraperitoneal space: No intraperitoneal free fluid. IMPRESSION: Intrauterine gestational sac with no pole or heart rate identified consistent with a non-viable . The sac diameter corresponds to a gestational age of 6 weeks. A small subchorionic hemorrhage is suspected. Dictated and Authenticated by: Raza Lambert MD. Ordering:JUANITO Rosa MD
[2021-04-17 18:51] VITALS: BP 106/69; PULSE 71; RESP 16; O2SAT 100
== END 2021-04-17 18:51 | disposition home or self-care (01) ==
PROVIDERS: Emergency Provider Emergency Medicine; PCP Family Medicine
DX: O03.4 Incomplete spontaneous abortion without complication (principal)
CPT/HCPCS: 36415; 86900; 86901; 99284; 76801; 84702; 85025

== ENCOUNTER 2021-04-20 11:28 | Day surgery (SDC) | payer MEDICAID, SELFPAY ==
[2021-04-20] VITALS (9 sets, daily range): BP systolic 98–111; BP diastolic 53–69; PULSE 61–85; RESP 12–18; TEMP 36.3–36.8; O2SAT 95–100; BMI 27.1
--- NOTE | 2021-04-20 10:51 | W.ANESPRE ---
General Info Date of Service Date Performed: 04/20/21 Height: 5 ft 2 in Weight: 67.132 kg Body Mass Index (BMI): 27.1 Surgical Procedure: Operation Date: 04/20/21 13:10 Proposed Procedures Side Surgeon p Suction Completion Angélica Marcial DO Meds Allergies and Home Medications Allergies Allergy/AdvReac Type Severity Reaction Status Date / Time citalopram AdvReac Intermediate insomnia Verified 04/20/21 11:58 ultrasound gel Allergy Intermediate Itching Uncoded 04/20/21 11:58 Home Medication Medication Instructions Recorded albuterol sulfate 90 mcg/actuation 2 puff INHALATION Q4H PRN #1 08/17/19 aerosol inhaler inhaler nebulizer accessories #1 each 08/17/19 ipratropium 0.5 mg-albuterol 3 mg 3 ml INHALATION Q4H PRN #90 ml 07/15/20 (2.5 mg base)/3 mL nebulization soln hydroxyzine HCl 10 mg tablet 30 mg PO QHS tab 08/03/20 fluoxetine 20 mg capsule 20 mg PO DAILY 11/07/20 ondansetron 4 mg disintegrating 4 mg PO Q8H PRN #30 tab 12/15/20 tablet prochlorperazine maleate 10 mg 10 mg PO TID PRN #60 tab 12/19/20 tablet Current Visit Medications: Current Medications Generic Name Dose Route Start Last Admin Trade Name Freq PRN Reason Stop Dose Admin Doxycycline Hyclate 200 mg 04/20/21 06:00 Doxycycline Hyclate 100 Mg Cap PO 04/20/21 16:00 PREOP OSCAR Ringer's Solution 1,000 mls @ 125 mls/hr 04/20/21 06:00 IV 05/19/21 23:59 INFUSION OSCAR IV Miscellaneous Supplies 1 each 04/20/21 06:00 Iv Access IV 05/19/21 23:59 DIRECTED OSCAR Sodium Chloride 0 ml 04/20/21 06:00 Normal Saline Flush 10 Ml Syr IV 05/19/21 23:59 PRN PRN Sodium Chloride 0 ml 04/20/21 06:00 Normal Saline 10 Ml Vial IJ 05/19/21 23:59 DIRECTED PRN Sterile Water 0 ml 04/20/21 06:00 Water,Injection,Sterile 10 Ml Vial IJ 05/19/21 23:59 DIRECTED PRN PFSH Active Problems Active Problems: Problem Status Onset Code Incomplete miscarriage O03.4 Kidney stones N20.0 Positive test Z32.01 Cephalgia R51.9 Pulmonary valve prolapse 09/13/14 I37.8 Migraine headache without aura G43.009 Migraine headache with aura G43.109 Nausea & vomiting R11.2 Diarrhea R19.7 Feels feverish R50.9 Depression 01/24/15 F32.9 Adjustment disorder with mixed anxiety and depressed mood F43.23 Major depressive disorder, recurrent episode, severe F33.2 Asthma exacerbation J45.901 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 Panic disorder F41.0 Suicidal ideation R45.851 Primigravida in third trimester 12/15/15 Z34.03 Eczema 06/24/14 L30.9 Alopecia areata 05/19/15 L63.9 Allergic rhinitis 05/27/14 J30.9 Persistent vomiting R11.10 Dehydration E86.0 Asthma J45.909 Migraine headache G43.909 Syncopal episodes R55 Medical History Medical History (Updated 04/20/21 @ 12:53 by Silvia Salinas) Adjustment disorder with mixed anxiety and depressed mood per [facility] Mikayla cedillo Allergic rhinitis Alopecia (capitis) totalis Asthma Atopic dermatitis Depression (01/24/15) 04/25 - 05/02/18 Inpatient [facility] (depression with suicidal ideation) Pjqwfq-ix-qyby transgender person Preferred name: Teodora He/Him pronouns 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; anesthesia given to lower tooth Kidney stones Major depressive disorder, recurrent episode, severe per [facility] Mikayla cedillo Pulmonary valve prolapse (09/13/14) cardiology eval 12/22. F/u echo in 5 years Urinary tract infection requiring hospitalization Tobacco Smoking/Tobacco Use Status: Former Tobacco Use Tobacco: How many years used: 1 Quit Status: quit date established Alcohol Alcohol Intake: former Substance Use Substance use: Current Sobriety Substance use type: marijuana Details: few times a month Vital Signs and Lab Results Lab Results Result Diagrams: 04/20/21 12:11 Blood Type / Crossmatch: Patient ABO/Rh A Positive 04/20/21 12:11 04/20/21 Antibody Screen NEGATIVE 04/20/21 12:11 04/20/21 Complete Blood Count: White Blood Count 5.51 10^3/uL (4.4-10.8) 04/20/21 12:11 04/20/21 Red Blood Count 4.20 10^6/uL (3.93-5.22) 04/20/21 12:11 04/20/21 Hemoglobin 12.2 g/dL (11.2-15.7) 04/20/21 12:11 04/20/21 Hematocrit 37.4 % (36.0-46.0) 04/20/21 12:11 04/20/21 Platelet Count 256 10^3/uL (130-400) 04/20/21 12:11 04/20/21 Complete Metabolic Panel: No Data to Display Liver Function Panel: No Data to Display Coagulation Panel: No Data to Display Cardiac Panel: No Data to Display Arterial Blood Gas: No Data to Display Venous Blood Gas: No Data to Display Pancreas Panel: No Data to Display Thyroid Panel: No Data to Display Infectious Disease: Coronavirus (COVID-19)(PCR) Negative (Negative) 04/20/21 11:33 04/20/21 Coronavirus 2019 Source Nasal/Nares 04/20/21 11:33 04/20/21 Blood Cultures: No Data to Display Toxicology Panel: No Data to Display Panel: Urine HCG, Qualitative Positive 03/30/21 13:19 03/30/21 Beta HCG, Quantitative 7918 mIU/mL (1-3) H 04/17/21 15:44 04/17/21 Imaging and Studies Imaging and Studies EKG Summary: 10/30/20 Exam: Resting ECG Patient Location: E HR:81 bpm ECG Measurements Heart Rate 81 AXIS AZ 174 P 64 QRSd 106 QRS 46 QT 401 T-20 QTc 465 Conclusion Sinus rhythm...normal P axis, V-rate 60- 99 Probable left atrial enlargement...P >50mS, <-0.10mV V1 Echocardiogram Summary: ORDERING PHYSICIAN: Jose Armando Ramos MD HEIGHT: 5 FT 3 IN WEIGHT: 112 LBS BSA: 1.5 m2 STUDY INDICATIONS: New murmur. FINDINGS: LEFT VENTRICLE: LVEF approximately 55-60%. Normal size. RIGHT VENTRICLE: Normal size and function. AORTIC VALVE: Trileaflet. No aortic stenosis or insufficiency. MITRAL VALVE: Mild mitral insufficiency. No stenosis. TRICUSPID VALVE: Trace tricuspid insufficiency. RSV/PA PRESSURE: PULMONIC VALVE: Leaflet prolapse appears to be present in some views. [id number] pulmonic insufficiency. No pulmonic stenosis. LEFT/RIGHT ATRIA: Within normal limits. DIASTOLIC INDICES: GREAT VESSELS: IVC is normal in size, and collapses with inspiration. Right atrial pressure is estimated at less than 10 mmHg. PERICARDIUM: No effusion. RHYTHM: Sinus. Anesthesia Assessment and Plan Anesthesia History Personal History: No History of Anesthesia Complications Family History: No Family History of Anesthesia Complications Exercise Tolerance Exercise Tolerance: Metabolic Equivalents>4 Pertinent Negatives Pertinent Negatives: No Symptoms of GERD, No History of CVA/TIA and Other (Pulmonary valve regurg, no follow up echo. Asthma, last inhaler use nearly a year ago) Cardiac & Pulmonary Exam Cardiac Exam: Normal S1/S2 Heart Sounds Pulmonary Exam: Clear Bilateral Breath Sounds Airway Exam Known Difficult Airway: No Mallampati Class: 1 Mouth Opening: Normal (> 3cm) Thyromental Distance: Greater than 3 cm Neck Range of Motion: Full ROM Neck Circumference: Normal Teeth Condition: Loose or Chipped (Left upper chipped tooth) ASA Classification ASA Score: ASA 2 Emergency Case?: No NPO Status NPO Status: NPO Clears >2 hours, Solids >8 hours Status Status: Confirmed Anesthesia Plan Resuscitation Status: Full Code Anesthesia Technique: General Anesthesia Airway Planned: Natural Airway Monitors Used: Standard Monitors
[2021-04-20 11:46] LABS: Source Nasal/Nares
[2021-04-20] MEDS: Doxycycline Hyclate 100 MG CAP 200 MG PO (12:17)
[2021-04-20 12:24] LABS: Abs Immature Grans 0.01 10^3/uL (0.0-0.06); Absolute Basophil Count 0.04 10^3/uL (0.0-0.2); Absolute Eosinophil Count 0.25 10^3/uL (0.0-0.7); Absolute Lymphocyte Count 1.58 10^3/uL (1.2-3.4); Absolute Neutrophil Count 3.23 10^3/uL (1.2-6.7); Basophils % 0.7; Eosinophils % 4.5; HCT 37.4 % (36.0-46.0); HGB 12.2 g/dL (11.2-15.7); Immature Grans % 0.2; Lymphocytes % 28.7; MCHC 32.6 % (32.0-36.0); MPV 10.6 fL (8.0-11.0); Monocytes % 7.3; Neutrophils % 58.6; Nucleated RBC 0 %; Platelet Count 256 10^3/uL (130-400); RDW 12.4 % (11.7-14.6); RDW-SD 40.4 fL; WBC 5.51 10^3/uL (4.4-10.8)
[2021-04-20] MEDS: Lactated Ringers 1,000 ML 125 ML IV (12:40)
[2021-04-20 12:46] LABS: COVID-19 PCR Negative (Negative)
--- NOTE | 2021-04-20 13:40 | POCSPONT_PTH ---
PATIENT: Gonzalo Scruggs LOC: [facility] U#:[id number] AGE/SX: 25/F ROOM: RE04/20/[address]: Angélica Marcial DO : 1995 BED: DIS: 04/20/2021 SPEC #: [id number] RECD: 04/20/21 17:17 STATUS: MEERA REQ #: [id number] LEIDA: 04/20/21 13:[address]: Angélica Marcial DEPT: Surgical Specimen RECD BY: Daphnie Baeza ENTERED: 04/20/21 17:20 SP TYPE: POCSPONT SHANTELLE DR: Eric Singer DO Tissues: 1 - ,SPONTANEOUS Procedures: GROSS AND MICRO LEVEL 4 Comments: [id number]
--- NOTE | 2021-04-20 13:52 | W.PM.OP ---
Date of service: 04/20/21 Time of Service: 13:52 Operative Note Operative Note DATE OF PROCEDURE: 04/20/21 PRE-OP DIAGNOSIS: Incomplete miscarriage POST-OP DIAGNOSIS: same PROCEDURE: Dilation and curettage with suction SURGEON: Angélica Marcial ANESTHESIA TYPE: General LMA/ETT Refer to Anesthesia Record ESTIMATED BLOOD LOSS: 25 PATHOLOGY: other (Uterine contents, products of conception) COMPLICATIONS: None Patient was transported to: PACU Patient's condition: stable Indications: Incomplete miscarriage Findings: Scant endometrial tissue Procedure Description: Patient is a 25-year-old 2 para 1 who had a known failed . This patient was known to have an intrauterine gestational sac without pole. He was having occasional episodes of spotting and bleeding with mild cramping. She wished for surgical completion of her miscarriage. Risk benefits and alternatives of the procedure including risk of infection, bleeding, injury to surrounding organs, risk of anesthesia were all explained to the patient and full informed consent was obtained. He was taken the operating suite with an IV running and then placed in the dorsal supine position. Endotracheal intubation performed with administration of general anesthesia with ease. At this point the patient was placed in the modified dorsal lithotomy position and prepped and draped in usual sterile fashion. Exam under anesthesia revealed a uterus that was small, midline, mobile approximately 6 weeks size. Cervical os was moderately open. At this point a Graves speculum was placed into the vaginal vault and an Allis clamp used to grasp the anterior lip of the cervix. Cervical os dilated the point that an 8 Bangladeshi suction curette could be passed. With gentle suction curettage the uterus was cleared of all tissue. After completion of suction curette a sharp curettage was performed where the coarse cry of the uterus could be felt in all 4 quadrants. A second pass of the suction curette was performed for retrieval of scant tissue. Allis clamp was removed and speculum was also removed from the vaginal vault. Uterus was small and midline. Patient tolerated the procedure without difficulty and was taken to recovery in stable condition Complications: None apparent EBL: 25 mL Pathology: Uterine contents for examination
[2021-04-20] MEDS: Albuterol/Ipratropium 3 ML UPD VIAL UPD (14:26)
--- NOTE | 2021-04-20 14:40 | W.ANESPOSTOP ---
Postoperative Evaluation Date, Time and Location Date Performed: 04/20/21 Time Performed: 14:40 Patient Location: Day Surgery Unit Vital Signs Most Recent Imported Vital Signs: Most Recent Vital Signs Temp Pulse Resp BP Pulse Ox 36.5 C 61 12 98/63 L 100 04/20/21 14:25 04/20/21 14:25 04/20/21 14:25 04/20/21 14:25 04/20/21 14:25 Pain Score Most Recent Pain Score: Most Recent Pain Score Pain Level 2 04/20/21 14:25 Assessment Mental Status: Awake (Alert & Oriented to Patient Baseline) Airway and Respiratory Function: Patent airway with normal (patient baseline) respiratory exam Cardiovascular Function: Hemodynamically Stable Hydration Status: Adequately Hydrated Nausea & Vomiting: No Nausea or Vomiting Pain: Pt. Denies Any Pain Peripheral Nerve Block: Patient did not receive a nerve block
[2021-04-20] MEDS: oxyCODONE 5 mg/Acetaminophen 325 mg TAB 1 TAB PO (15:39)
== END 2021-04-20 16:15 | disposition home or self-care (01) ==
PROVIDERS: PCP Family Medicine; Visit Provider Obstetrics & Gynecology
PROC: (CPT 59841; principal; 2021-04-20 13:00)
DX: O03.4 Incomplete spontaneous abortion without complication (principal); Z98.890 Other specified postprocedural states
CPT/HCPCS: 59812; 86850; 86900; 86901; 87635; 88305; 85025; J1100; J1885; J2001; J2250; J2405; J7620

== ENCOUNTER 2021-05-23 14:55 | Outpatient (REF) | payer MEDICAID, SELFPAY ==
[2021-05-24 14:15] LABS: COVID-19 RT-PCR UVMMC Result Negative (Negative)
== END 2021-05-23 14:56 | disposition home or self-care (01) ==
LOC: LBN 14:55
PROVIDERS: PCP Family Medicine; Referring Provider Nurse Practitioner Family; Visit Provider Nurse Practitioner Family
DX: Z20.822 Contact with and (suspected) exposure to COVID-19 (principal); J06.9 Acute upper respiratory infection, unspecified
CPT/HCPCS: U0003

== ENCOUNTER 2021-06-10 20:41 | Emergency (ER) | payer MEDICAID, SELFPAY ==
[2021-06-10 20:46] VITALS: BP 122/74; PULSE 78; RESP 18; TEMP 36.7; O2SAT 98
[2021-06-10] MEDS: Amoxicillin 500 MG CAP PO (21:00)
[2021-06-10] MEDS: Bupivacaine 0.5% Pres-Free 30 ML VIAL (21:01)
--- NOTE | 2021-06-10 21:04 | W.ED.GENAD ---
Discharge Plan Disposition Patient Disposition: HOME Condition: Good Discharge Details Clinical Impression: Pain, dental Primary Care Provider: Eric Singer ED Provider: Jose Armando Whiting Home Meds and New Rx's Prescriptions: New amoxicillin 500 mg capsule 500 mg PO BID 10 Days Qty: 20 RF: 0 Continued ipratropium-albuterol 0.5 mg-3 mg(2.5 mg base)/3 mL solution for nebulization 3 ml Inhalation Q4H PRN (Reason: shortness of breath or wheezing) Qty: 90 RF: 3 ondansetron 4 mg tablet,disintegrating 4 mg PO Q8H PRN (Reason: nausea and vomiting) Qty: 30 RF: 0 (DME) nebulizer accessories Kit See Rx Instructions .ROUTE .MEDSUPPLY Qty: 1 RF: 0 medroxyprogesterone [Depo-Provera] 150 mg/mL syringe 150 mg IM Q12W Qty: 1 RF: 3 hydroxyzine HCl 10 mg tablet 30 mg PO QHS RF: 0 fluoxetine [Prozac] 20 mg capsule 20 mg PO DAILY RF: 0 prochlorperazine maleate [Compazine] 10 mg tablet 10 mg PO TID PRN (Reason: nausea and vomiting) Qty: 60 RF: 5 albuterol sulfate [ProAir HFA] 90 mcg/actuation HFA aerosol inhaler 2 puff Inhalation Q4H PRN Qty: 1 RF: 5 ibuprofen 800 mg tablet 800 mg PO Q8H Qty: 30 RF: 0 Androderm 4 mg/24 hr patch 24 hour 1 patch topical DAILY RF: 0 Discharge Instructions Instructions: Toothache (ED) Additional Instructions: The block we administered should help improve your pain. Please take 800 mg of ibuprofen every 6 hours and 1000 mg of Tylenol every 6 hours to help with the inflammation and pain. These are the maximum doses. Please take the antibiotic as directed to help with the infection in your tooth. Please use the dental list that we have provided to contact the dentist for prompt follow-up and evaluation for tooth removal. If you notice any worsening of your symptoms, or any new symptoms such as difficulty swallowing, difficulty breathing, vomiting, diarrhea, fever, chills, shortness of breath, chest pain, numbness, weakness, or fainting , please return immediately to the emergency department for reevaluation. Please follow up with your primary care provider as soon as possible for reassessment and reevaluation. As always, it was a pleasure participating in your medical care today. Referrals: Eric Singer, [Primary Care Provider] - Discharge Data Discharge Date/Time-TO BE ENTERED AT DEPARTURE: 06/10/21 21:10 Medical Decision Making 25-year-old presents today for dental pain. Patient states that he has had dental pain in the upper left and tooth for quite some time, and a chronically broken tooth, however over the last few days it has become notably more painful and tender. Patient denies any fever now. She has taken some Tylenol and Motrin without significant relief. No difficulty swallowing or drinking. Patient does have a dentist but has not been able to follow-up yet. No other complaints at this time. Physical exam demonstrates poor dentition in the left upper posterior molars, there is no evidence of periapical abscess. Mild tenderness, notable tooth decay. Dental block was offered and accepted. Risks and benefits were discussed. Dental block was performed and patient had near complete resolution of her pain. We will start the patient on antibiotic, get the first dose here, and a prescription for home. Dental sheet was given with outpatient resources. Discussed red flags which to return I have extensively reviewed the treatment plan and discharge instructions with the patient. I have addressed all patient concerns at this time. The patient was made aware of what symptoms to monitor for that would warrant a return to the emergency department. Discussed the plan with the patient, they demonstrate verbal understanding and agreement with our assessment and plan at this time. The documentation in this chart was dictated using [employer] dictation software. Please excuse any dictation errors. HPI General Date/Time Provider Initiated Documentation: 06/10/21 20:51. HPI Narrative: 25-year-old presents today for dental pain. Patient states that he has had dental pain in the upper left and tooth for quite some time, and a chronically broken tooth, however over the last few days it has become notably more painful and tender. Patient denies any fever now. She has taken some Tylenol and Motrin without significant relief. No difficulty swallowing or drinking. Patient does have a dentist but has not been able to follow-up yet. No other complaints at this time. Related Data Home Medications Medication Instructions Recorded Confirmed nebulizer accessories #1 each 08/17/19 06/10/21 ipratropium 0.5 mg-albuterol 3 mg 3 ml INHALATION Q4H PRN #90 ml 07/15/20 06/10/21 (2.5 mg base)/3 mL nebulization soln hydroxyzine HCl 10 mg tablet 30 mg PO QHS tab 08/03/20 06/10/21 fluoxetine 20 mg capsule 20 mg PO DAILY 11/07/20 06/10/21 ondansetron 4 mg disintegrating 4 mg PO Q8H PRN #30 tab 12/15/20 06/10/21 tablet prochlorperazine maleate 10 mg 10 mg PO TID PRN #60 tab 12/19/20 06/10/21 tablet ibuprofen 800 mg PO Q8H #30 tab 04/20/21 06/10/21 albuterol sulfate 90 mcg/actuation 2 puff INHALATION Q4H PRN #1 04/24/21 06/10/21 aerosol inhaler inhaler medroxyprogesterone 150 mg/mL 150 mg IM Q12W #1 ml 05/08/21 06/10/21 intramuscular syringe Androderm 1 patch TOPICAL DAILY 06/10/21 06/10/21 amoxicillin 500 mg PO BID 10 Days #20 cap 06/10/21 Previous Rx's Medication Instructions Recorded nebulizer accessories #1 each 08/17/19 ipratropium 0.5 mg-albuterol 3 mg 3 ml INHALATION Q4H PRN #90 ml 07/15/20 (2.5 mg base)/3 mL nebulization soln ondansetron 4 mg disintegrating 4 mg PO Q8H PRN #30 tab 12/15/20 tablet prochlorperazine maleate 10 mg 10 mg PO TID PRN #60 tab 12/19/20 tablet ibuprofen 800 mg PO Q8H #30 tab 04/20/21 albuterol sulfate 90 mcg/actuation 2 puff INHALATION Q4H PRN #1 04/24/21 aerosol inhaler inhaler medroxyprogesterone 150 mg/mL 150 mg IM Q12W #1 ml 05/08/21 intramuscular syringe amoxicillin 500 mg PO BID 10 Days #20 cap 06/10/21 Allergies Allergy/AdvReac Type Severity Reaction Status Date / Time citalopram AdvReac Intermediate insomnia Verified 06/10/21 20:49 ultrasound gel Allergy Intermediate Itching Uncoded 06/10/21 20:49 General Stated Complaint: DentalOral CONOR: 5 Review of Systems All systems reviewed & are unremarkable except as noted in HPI and below [facility] Medical History Adjustment disorder with mixed anxiety and depressed mood per [facility] Mikayla cedillo Allergic rhinitis Alopecia (capitis) totalis Asthma Atopic dermatitis Contraceptive management Depression (01/24/15) 04/25 - 05/02/[address] [facility] (depression with suicidal ideation) [id number] transgender person Preferred name: Teodora He/Him pronouns 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 F/u echo in 5 years Urinary tract infection requiring hospitalization Surgical History Status post dilation and curettage Family History Mother Obstructive sleep apnea syndrome uses cpap hs Father Esophageal stricture Diabetes Sister Mental disorder Depression Brother Asthma Social History Smoking/Tobacco Use Status: Current-Occasional Tobacco Type: cigarettes Tobacco: How many years used: 1 Quit status: quit date established Smoking risk assessment performed?: Yes Alcohol Intake: former Drug use: Current Sobriety Substance use type: marijuana Details: few times a month; pt reports none on DOS 06/10/21 What type of physical activity do you participate in: walking Frequency: daily Seatbelt use: always Do you feel safe at home: Yes Do you feel safe in your relationship?: Yes Female Reproductive History Menstrual control method: progestin IUCD Exam Narrative Exam Narrative: 1.Const: Well-nourished, Well-developed, appearing stated age 2.Eyes: PERRL, no conjunctival injection, and symmetrical lids. 3.ENT: Atraumatic external nose and ears. Moist MM. Neck: Symmetric, trachea midline, No thyromegaly. Poor dentition in the upper left posterior molars. Old chronic broken tooth with filling and an old broken tooth without filling. No evidence of periapical abscess. No evidence of Ludewig's angina, airway compromise, or other significant abnormalities. 4.CVS: +S1/S2, No murmurs or gallops. Peripheral pulses 2+ and equal in all extremities. Brisk capillary refill in all extremities. 5.RESP: Unlabored respiratory effort. Clear to auscultation bilaterally. No wheezes rales or rhonchi 6.GI: Soft, Nontender/Nondistended, No hepatosplenomegaly. No guarding or rebound. 7.MSK: Normocephalic/Atraumatic, Extremities w/o deformity or ttp No cyanosis or clubbing, Normal movement of all extremities 8.Skin: Warm, Dry. No rashes or lesions. 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 Sensation grossly intact, no focal neurologic deficits. 10.Psych: (AAO) x3. Appropriate mood and affect Course Vital Signs Vital signs: Vital Signs Temperature 36.7 C 06/10/21 20:46 Pulse 78 06/10/21 20:46 Respiratory Rate 18 06/10/21 20:46 Blood Pressure 122/74 06/10/21 20:46 Pulse Oximetry 98 06/10/21 20:46 Temperature 36.7 C 06/10/21 20:46 Pulse 78 06/10/21 20:46 Respiratory Rate 18 06/10/21 20:46 Respiratory Effort Non-Labored 06/10/21 20:51 Blood Pressure 122/74 06/10/21 20:46 Pulse Oximetry 98 06/10/21 20:46 Pain Level 8 06/10/21 20:51
== END 2021-06-10 21:10 | disposition home or self-care (01) ==
PROVIDERS: Emergency Provider Student in an Organized Health Care Education/Training Program; PCP Family Medicine
DX: K08.89 Other specified disorders of teeth and supporting structures (principal)
CPT/HCPCS: 64400

== ENCOUNTER 2021-06-20 12:25 | Observation (INO) | payer MEDICAID, SELFPAY ==
[2021-06-20 12:34] VITALS: BP 110/74; PULSE 91; RESP 16; TEMP 36.4; O2SAT 98
--- NOTE | 2021-06-20 13:22 | ED.GENADUL_ITS ---
Discharge Plan Disposition Condition: Stable Discharge Details Chief Complaint: PsychEval Admit Date/Time: 06/20/21 16:52 Admit Provider: Elaine Avendaño Attending Provider: Elaine Avendaño Primary Care Provider: Eric Singer ED Provider: Denisa Trujillo Discharge Instructions Activity:: Activity as Tolerated Equipment/Supplies:: No Equipment Needed Diet:: As Tolerated Discharge Orders Discharge Orders: Discharge Order (Routine); Ordered 06/21/21 Ordered By: Amberly Villalobos Discharge Data Discharge Date/Time-TO BE ENTERED AT DEPARTURE: 06/20/21 18:27 Medical Decision Making 25-year-old female presents to the ER with complaint of suicidal ideations for the last few days. Patient reports that she would overdose on her fluoxetine. Patient reports cutting her right anterior thigh yesterday. Denies any other actions of self-harm over the last couple of days. She does have a past medical history of depression, adjustment disorder with mixed anxiety, female to male transgender, kidney stones, asthma, atopic dermatitis. She reports taking testosterone patches for a female to male transgender goal and she is developing well every time with patch on. She reports that she has been putting a patch on every day for the last 3 weeks. 1600: Patient was evaluated by human services. They are attempting placement at a care bed or psych placement at this time. 1638: Spoke with Dr. Avendaño regarding patient case and details. She recommends following up to see if patient can be placed at care bed prior to excepting for admission. Care management paged. Patient has remained calm and cooperative throughout stay. HPI General Mode of arrival: ambulatory . Date/Time Provider Initiated Documentation: 06/20/21 12:38 . Limitations to Documentation: no limitations . Information obtained by: patient, RN notes reviewed and old records reviewed . HPI Narrative: 25-year-old female presents to the ER with complaint of suicidal ideations for the last few days. Patient reports that she would overdose on her fluoxetine. Patient reports cutting her right anterior thigh yesterday. Denies any other actions of self-harm over the last couple of days. She does have a past medical history of depression, adjustment disorder with mixed anxiety, female to male transgender, kidney stones, asthma, atopic dermatitis. She reports taking testosterone patches for a female to male transgender goal and she is developing well every time with patch on. She reports that she has been putting a patch on every day for the last 3 weeks. Related Data Home Medications Medication Instructions Recorded Confirmed nebulizer accessories #1 each 08/17/19 06/10/21 ipratropium 0.5 mg-albuterol 3 mg 3 ml INHALATION Q4H PRN #90 ml 07/15/20 06/20/21 (2.5 mg base)/3 mL nebulization soln hydroxyzine HCl 10 mg tablet 30 mg PO QHS tab 08/03/20 06/20/21 fluoxetine 20 mg capsule 20 mg PO DAILY 11/07/20 06/20/21 ondansetron 4 mg disintegrating 4 mg PO Q8H PRN #30 tab 12/15/20 06/20/21 tablet prochlorperazine maleate 10 mg 10 mg PO TID PRN #60 tab 12/19/20 06/20/21 tablet ibuprofen 800 mg PO Q8H #30 tab 04/20/21 06/20/21 albuterol sulfate 90 mcg/actuation 2 puff INHALATION Q4H PRN #1 04/24/21 06/20/21 aerosol inhaler inhaler medroxyprogesterone 150 mg/mL 150 mg IM Q12W #1 ml 05/08/21 06/20/21 intramuscular syringe Androderm 1 patch TOPICAL DAILY 06/10/21 06/20/21 Previous Rx's Medication Instructions Recorded nebulizer accessories #1 each 08/17/19 ipratropium 0.5 mg-albuterol 3 mg 3 ml INHALATION Q4H PRN #90 ml 07/15/20 (2.5 mg base)/3 mL nebulization soln ondansetron 4 mg disintegrating 4 mg PO Q8H PRN #30 tab 12/15/20 tablet prochlorperazine maleate 10 mg 10 mg PO TID PRN #60 tab 12/19/20 tablet ibuprofen 800 mg PO Q8H #30 tab 04/20/21 albuterol sulfate 90 mcg/actuation 2 puff INHALATION Q4H PRN #1 04/24/21 aerosol inhaler inhaler medroxyprogesterone 150 mg/mL 150 mg IM Q12W #1 ml 05/08/21 intramuscular syringe Allergies Allergy/AdvReac Type Severity Reaction Status Date / Time peanut Allergy Intermediate Swelling/Ed Unverified 06/20/21 18:00 josy citalopram AdvReac Intermediate insomnia Verified 06/20/21 12:40 ultrasound gel Allergy Intermediate Itching Uncoded 06/20/21 12:40 General Stated Complaint: PsychEval CONOR: 2 Review of Systems All systems reviewed & are unremarkable except as noted in HPI and below PFSH Medical History Adjustment disorder with mixed anxiety and depressed mood per [facility] Mikayla cedillo Allergic rhinitis Alopecia (capitis) totalis Asthma Atopic dermatitis Contraceptive management Depression (01/24/15) 04/25 - 05/02/18 Inpatient [facility] (depr ession with suicidal ideation) [id number] transgender person Preferred name: Teodora He/Him pronouns 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 F/u echo in 5 years Urinary tract infection requiring hospitalization Surgical History Status post dilation and curettage Family History Mother Obstructive sleep apnea syndrome uses cpap hs Father Esophageal stricture Diabetes Sister Mental disorder Depression Brother Asthma Social History Smoking/Tobacco Use Status: Current-Occasional Tobacco Type: cigarettes Tobacco: How many years used: 1 Quit status: quit date established Smoking risk assessment performed?: Yes Alcohol Intake: former Drug use: Occasionally Substance use type: marijuana Details: few times a month; pt reports none on DOS 06/10/21 What type of physical activity do you participate in: walking Frequency: daily Seatbelt use: always Do you feel safe at home: Yes Do you feel safe in your relationship?: Yes Female Reproductive History Menstrual control method: progestin IUCD Exam Extrem Upper/lower leg/hip images: 1. Multiple linear, horizontal superficial lacerations noted to right anterior thigh. Scab is forming Psych Speech and Movement: speech clear Affect: sad and indifferent Attitude: cooperative Thought Process: normal Thought Content: compulsions and suicidality Insight: limited Judgment: limited Course Vital Signs Vital signs: Vital Signs Temperature 36.4 C L 06/20/21 12:34 Pulse 91 H 06/20/21 12:34 Respiratory Rate 16 06/20/21 12:34 Blood Pressure 110/74 06/20/21 12:34 Pulse Oximetry 98 06/20/21 12:34 Temperature 36.4 C L 06/20/21 12:34 Temperature Source Skin 06/20/21 12:34 Pulse 91 H 06/20/21 12:34 Respiratory Rate 16 06/20/21 12:34 Respiratory Effort Non-Labored 06/20/21 12:34 Blood Pressure 110/74 06/20/21 12:34 Blood Pressure Position Sitting 06/20/21 12:34 Pulse Oximetry 98 06/20/21 12:34 Oxygen Delivery Method Room Air 06/20/21 12:34 Oxygen Flow Rate 0 06/20/21 12:34 Pain Level 0 06/20/21 12:34
[2021-06-20 13:32] LABS: Abs Immature Grans 0.01 10^3/uL (0.0-0.06); Absolute Basophil Count 0.09 10^3/uL (0.0-0.2); Absolute Eosinophil Count 0.95 10^3/uL (0.0-0.7); Absolute Lymphocyte Count 1.46 10^3/uL (1.2-3.4); Absolute Monocyte Count 0.33 10^3/uL (0.1-0.8); Absolute Neutrophil Count 3.18 10^3/uL (1.2-6.7); Basophils % 1.5; Eosinophils % 15.8; HCT 39.2 % (36.0-46.0); HGB 12.7 g/dL (11.2-15.7); Immature Grans % 0.2; Lymphocytes % 24.3; MCH 28.5 pg (27.0-33.0); MCHC 32.4 % (32.0-36.0); MCV 88.1 fL (80-95); MPV 10.3 fL (8.0-11.0); Monocytes % 5.5; Neutrophils % 52.7; Nucleated RBC 0 %; Platelet Count 340 10^3/uL (130-400); RBC 4.45 10^6/uL (3.93-5.22); RDW 12.2 % (11.7-14.6); RDW-SD 39.6 fL; WBC 6.02 10^3/uL (4.4-10.8)
[2021-06-20 13:42] LABS: Bilirubin Negative (Negative); Blood Negative (Negative); Clarity Clear (Clear); Glucose Negative (Negative); Ketones Negative (Negative); Leukocyte Esterase Trace (Negative); Nitrite Negative (Negative); Specific Gravity 1.025 (1.005-1.025); pH 7.5 (5-8)
[2021-06-20 13:46] LABS: ALT 26 U/L (14-59); AST 15 U/L (15-37); Alkaline Phosphatase 87 U/L (46-116); Anion Gap 9.8 mmol/L (3-11); BUN 10 mg/dL (7-18); Bilirubin, Total 0.6 mg/dL (0.2-1.0); CO2 25.2 mmol/L (21.0-32.0); CREATININE 0.8 mg/dL (0.55-1.02); Calcium 9.3 mg/dL (8.5-10.1); Chloride 107 mmol/L (98-107); Glucose 85 mg/dL (74-106); Potassium 3.7 mmol/L (3.5-5.1); Sodium 142 mmol/L (136-145); TSH (W/Ref FT4) 0.36 uIU/mL (0.36-3.74); Total Protein 7.9 g/dL (6.4-8.2)
[2021-06-20 13:47] LABS: Acetaminophen < 2 ug/mL (10-30); Salicylate < 2.8 mg/dL (<2.8)
[2021-06-20 13:48] VITALS: RESP 16; O2SAT 98
[2021-06-20 13:48] LABS: Bacteria Few HPF (Negative); C & S Indicated? No/Sq. Contamination; Casts Negative LPF (Negative); Crystals Negative HPF (Negative); Epithelial Cells Many HPF (Negative); Mucus Moderate (Negative); RBC 0-2 HPF (0-2)
[2021-06-20 14:08] LABS: *AMPHETAMINES SCREEN URINE Negative (Negative); *BARBITURATES SCREEN URINE Negative (Negative); *BENZODIAZEPINES SCREEN URINE Negative (Negative); Cannabinoids THC Negative (Negative); Cocaine Screen,Urine Negative (Negative); METHADONE URINE SCREEN Negative (Negative); OPIATES URINE SCREEN Negative (Negative)
[2021-06-20 14:09] LABS: ETHANOL BLOOD < 3.0 mg/dL (<3)
[2021-06-20 14:10] LABS: Tricyclic Antidepressants Negative (Negative)
--- NOTE | 2021-06-20 16:54 | HPE_ITS ---
Date of service: 06/20/21 Time of Service: 16:54 Assessment and Plan Assessment and plan (1) Suicidal ideation: Status: Acute Assessment and plan: medically cleared in the ED. seen by mental health. working on discharge plan which may be voluntary inpatient psychiatric placement vs care bed. continue [facility] and behavioral safety plan. discussed with Dr Avendaño History of Present Illness History of Present Illness Chief Complaint: depression Narrative: This is a 25-year-old female presents to the ER with complaint of suicidal ideation for the last few days. Patient reports that she would overdose on her fluoxetine. Patient reports cutting her right anterior thigh yesterday. Denies any other actions of self-harm over the last couple of days. She does have a past medical history of depression, adjustment disorder with mixed anxiety, female to male transgender, kidney stones, asthma, atopic dermatitis. She reports taking testosterone patches for a female to male transgender goal and she is developing well every time with patch on. She reports that she has been putting a patch on every day for the last 3 weeks. Review of Systems All systems reviewed & are unremarkable except as noted in HPI and below Psychiatric Psychiatric: Reports depression and Reports suicidal ideation [facility] Medical History Adjustment disorder with mixed anxiety and depressed mood per [facility] Mikayla cedillo Allergic rhinitis Alopecia (capitis) totalis Asthma Atopic dermatitis Contraceptive management Depression (01/24/15) 04/25 - 05/02/18 Inpatient [facility] Psychiatric Services (depression with suicidal ideation) [place]wn transgender person Preferred name: Teodora He/Him pronouns 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 F/u echo in 5 years Urinary tract infection requiring hospitalization Surgical History Status post dilation and curettage Family History Mother Obstructive sleep apnea syndrome uses cpap hs Father Esophageal stricture Diabetes Sister Mental disorder Depression Brother Asthma Social History Smoking/Tobacco Use Status: Current-Occasional Tobacco Type: cigarettes Tobacco: How many years used: 1 Quit status: quit date established Smoking risk assessment performed?: Yes Alcohol Intake: former Drug use: Occasionally Substance use type: marijuana Details: few times a month; pt reports none on DOS 06/10/21 What type of physical activity do you participate in: walking Frequency: daily Seatbelt use: always Do you feel safe at home: Yes Do you feel safe in your relationship?: Yes Female Reproductive History Menstrual control method: progestin IUCD Meds Allergies and Home Medications Allergies Allergy/AdvReac Type Severity Reaction Status Date / Time peanut Allergy Intermediate Swelling/Ed Unverified 06/20/21 18:00 josy citalopram AdvReac Intermediate insomnia Verified 06/20/21 12:40 ultrasound gel Allergy Intermediate Itching Uncoded 06/20/21 12:40 Home Medications Medication Instructions Recorded Confirmed Type nebulizer accessories #1 each 08/17/19 06/10/21 Rx ipratropium 0.5 mg-albuterol 3 mg 3 ml INHALATION Q4H PRN #90 ml 07/15/20 06/20/21 Rx (2.5 mg base)/3 mL nebulization soln hydroxyzine HCl 10 mg tablet 30 mg PO QHS tab 08/03/20 06/20/21 History fluoxetine 20 mg capsule 20 mg PO DAILY 11/07/20 06/20/21 History ondansetron 4 mg disintegrating 4 mg PO Q8H PRN #30 tab 12/15/20 06/20/21 Rx tablet prochlorperazine maleate 10 mg 10 mg PO TID PRN #60 tab 12/19/20 06/20/21 Rx tablet ibuprofen 800 mg PO Q8H #30 tab 04/20/21 06/20/21 Rx albuterol sulfate 90 mcg/actuation 2 puff INHALATION Q4H PRN #1 04/24/21 06/20/21 Rx aerosol inhaler inhaler medroxyprogesterone 150 mg/mL 150 mg IM Q12W #1 ml 05/08/21 06/20/21 Rx intramuscular syringe Androderm 1 patch TOPICAL DAILY 06/10/21 06/20/21 History Exam Const General: cooperative, comfortable and no acute distress Nutritional Appearance: average body habitus Orientation: alert, awake and oriented x3 HENMT Head: normal to inspection, normocephalic and atraumatic Mouth: oral mucosae normal Resp Effort & Inspection: normal respiratory effort Auscultation: clear to auscultation bilaterally Cardio Rate: regular rate Rhythm: regular rhythm GI Inspection: normal to inspection Palpation: soft Auscultation: normal bowel sounds Skin Lesions: lesion noted (multiple superficial linear scratches to right lower thigh, no erythema) Rashes: no rashes Neuro General: patient alert, patient awake and patient oriented x3 Cognition: normal cognition Speech: speech normal Gait: normal gait Motor: muscle tone normal throughout Extrem General: normal to inspection, full ROM and no pedal edema Psych Appearance: grossly normal Mental Status: mental status grossly normal Speech and Movement: speech and movement normal Mood: congruent mood Affect: blunted Attitude: cooperative Thought Content: suicidality Insight: fair Judgment: fair Results Labs Result diagrams: 06/20/21 13:14 06/20/21 13:14 Labs: Laboratory Results - last 24 hr 06/20/21 06/20/21 06/20/21 13:14 13:14 13:14 WBC 6.02 RBC 4.45 Hgb 12.7 Hct 39.2 MCV 88.1 MCH 28.5 MCHC 32.4 RDW 12.2 Plt Count 340 MPV 10.3 Immature Gran % 0.2 Neutrophils % 52.7 Lymphocytes % 24.3 Monocytes % 5.5 Eosinophils % 15.8 Basophils % 1.5 Nucleated RBC % 0 Absolute Neutrophils 3.18 Absolute Lymphocytes 1.46 Absolute Monocytes 0.33 Absolute Eosinophils 0.95 H Absolute Basophils 0.09 Sodium 142 Potassium 3.7 Chloride 107 Carbon Dioxide 25.2 Anion Gap 9.8 BUN 10 Creatinine 0.8 Estimated GFR/1.73 m2 >= 60.00 Glucose 85 Calcium 9.3 Total Bilirubin 0.6 AST 15 ALT 26 Alkaline Phosphatase 87 Total Protein 7.9 Albumin 4.0 TSH 0.36 Urine Color Urine Clarity Urine pH Ur Specific [place] Urine Protein Urine Ketones Urine Blood Urine Nitrite Urine Bilirubin Urine Urobilinogen Ur Leukocyte Esterase Urine RBC Urine WBC Ur Epithelial Cells Urine Crystals Urine Bacteria Urine Casts Urine Mucus Ur Culture Indicated? Urine Glucose Salicylates < 2.8 Urine Opiates Screen Urine Methadone Screen Acetaminophen < 2 Ur Barbiturates Screen Ur Tricyclics Screen Ur Amphetamines Screen U Benzodiazepines Scrn Urine Cocaine Screen Ur THC Screen Ethyl Alcohol < 3.0 06/20/21 06/20/21 13:27 13:27 WBC RBC Hgb Hct MCV MCH MCHC RDW Plt Count MPV Immature Gran % Neutrophils % Lymphocytes % Monocytes % Eosinophils % Basophils % Nucleated RBC % Absolute Neutrophils Absolute Lymphocytes Absolute Monocytes Absolute Eosinophils Absolute Basophils Sodium Potassium Chloride Carbon Dioxide Anion Gap BUN Creatinine Estimated GFR/1.73 m2 Glucose Calcium Total Bilirubin AST ALT Alkaline Phosphatase Total Protein Albumin TSH Urine Color Yellow Urine Clarity Clear Urine pH 7.5 Ur Specific [place] 1.025 Urine Protein Negative Urine Ketones Negative Urine Blood Negative Urine Nitrite Negative Urine Bilirubin Negative Urine Urobilinogen 1.0 H Ur Leukocyte Esterase Trace H Urine RBC 0-2 Urine WBC 3-5 Ur Epithelial Cells Many Urine Crystals Negative Urine Bacteria Few Urine Casts Negative Urine Mucus Moderate Ur Culture Indicated? No/Sq. Contamination Urine Glucose Negative Salicylates Urine Opiates Screen Negative Urine Methadone Screen Negative Acetaminophen Ur Barbiturates Screen Negative Ur Tricyclics Screen Negative Ur Amphetamines Screen Negative U Benzodiazepines Scrn Negative Urine Cocaine Screen Negative Ur THC Screen Negative Ethyl Alcohol Last Vital Signs Temp 36.4 C L 06/20/21 12:34 Pulse 91 H 06/20/21 12:34 Resp 16 06/20/21 13:48 BP 110/74 06/20/21 12:34 Pulse Ox 98 06/20/21 13:48
[2021-06-20 17:29] LABS: Source Nasal/Nares
--- NOTE | 2021-06-20 17:29 | PDOC.MHCN ---
Date of service: 06/20/21 Time of Service: 16:00 Mental Health Crisis Note Presenting Issue How did you arrive at the ED and why did you come: Client arrived to ED via [facility] due to concerns of SI with intent and plan to overdose on medication as well as increase in anxiety and depression. Precipitating Factors Client endorsed SI but no HI. Client also endorsed auditory and command hallucinations. Client stated: I hear a voice telling me to hurt myself and sometimes it tells me to hurt other people too. That is why I cut myself last night. Disposition BEHAVIOR: Client presented as engaging but appeared to dissociate a few times during this assessment. Client stared blankly at this sql report writer but was not responsive at times when asked questions and this sql report writer has to repeat the questions a few times before client answered. Client also presented as very fidgety and repeatedly kept passing his hand over his head, touching his face, etc. Client also presented as fatigued and yawned repeatedly as well. EYE CONTACT: Client made appropriate eye contact. However, client appeared to stare intently at this sql report writer at times during this assessment. MOOD: Client presented with depressed and anxious mood. AFFECT: Client presented with flat affect. APPETITE: Client reported a decrease in appetite in the last couple of weeks. Client also reported part of that is due to current financial struggles as well. SLEEP(trouble falling/staying asleep: Client reported poor sleep. Client reported difficulty falling and staying asleep. Plan This sql report writer was unable to safety plan with client at this time. Client reported he does not feel safe to be home and is voluntarily seeking placement to a crisis bed or in-patient facility. Referrals will be made to the Care Bed as well as [facility] and [facility]. There are currently no beds available at [facility] and [facility]. The care bed is pending referral review at this time. Signature Clinician's Name/Title: Nidhi Ritchie / Emergency Services Clinician, JESSICA.
[2021-06-20 18:08] VITALS: BP 102/70; PULSE 81; RESP 16; TEMP 36.2; O2SAT 97
[2021-06-20 18:19] VITALS: BP 98/54; PULSE 81; RESP 16; O2SAT 98
--- NOTE | 2021-06-20 18:20 | NUR.NOTE ---
Nursing Note: Facesheet, labs, [facility] note, H&P, ED provider note, faxed to Reilly at [facility]. Sakshi Sim
[2021-06-20 18:36] LABS: COVID-19 PCR Negative (Negative)
[2021-06-20 22:16] VITALS: BP 103/70; RESP 16; TEMP 36.5; O2SAT 96
[2021-06-21 09:00] VITALS: BP 101/69; PULSE 70; RESP 18; TEMP 37; O2SAT 95
[2021-06-21] MEDS: Nicotine 21 MG/24 HR PATCH TD (09:21)
--- NOTE | 2021-06-21 12:31 | PDOC.CMSAFE ---
- If Service Date Differs Date of service: 06/21/21 Time of Service: 12:32 Care Management Safety Plan Status: Voluntary - Reason for Wait Reason for Wait: Inpatient Admission VOLUNTARY FOR INPATIENT PSYCHIATRIC STABILIZATION. Patient is appropriate in all interactions since arriving at [facility]; Pt has demonstrated appropriate coping and communication skills, has articulated his needs and concerns and is fully engaged during staff interactions. Safety plan has been established with patient, and care team, to adhere to patient goals, identify restrictions based on behavioral status, address nutrition, and determine allowed personal belongings, tools for hygiene and personal care. Determine level of activity including ambulation, level of supervision, visitors, and determine privileges based on behaviors and level of engagement by pt. SAFETY PLAN: 1. Will remain on suicide precautions. In Paper Clothes 2. Will remain in room under direct supervision of one-on-one staff at all times provided by CPSO; UBALDO, AEROPHYSICIST liquid flavor compounder. 3. May have paper cups, plates, finger foods as well as a cardboard spoon with which to eat meals. 4. Follow [facility] Management of the Admitted Behavioral Health Patient policy. 5. Comfort bath system and may shower at RN discretion with escort. 6. No personal belongings 7. Visitors-No visitors at this time 8. Activities: soft cart items, color book, crayons, TV with Remote at RN discretion. 9. Bathroom privileges available in room without limitations on Med Surg. 10. Phone: May use [facility] phone to call his mom at RN discretion. 11. Due to VOLUNTARY status, if patient wishes to leave [facility], staff will contact [facility] Crisis Screener ([phone]) and On-Call Sap Integration Architect ([phone]) as soon as possible. In the event of elopement, notify [facility] Police ([phone]). Patient is currently voluntarily at [facility] and seeking inpatient admission when a bed becomes available. [facility] Frontline Kitchen Hand will continue seeking placement. Please contact the Community Health Specialist Sap Integration Architect ([phone]) and [facility] Kitchen Hand ([phone]) for any needed changes in the Safety Plan. Safety plan has been provided to interdepartmental care team.
--- NOTE | 2021-06-21 13:43 | W.PM.DS.N ---
Date of service: 06/21/21 Time of Service: 13:44 DS: Diagnosis Discharge Diagnosis (1) Suicidal ideation: Status: Acute Discharge Plan Disposition Patient Disposition: COMMUNITY CARE FACILITY Condition: Stable Discharge Details Reason For Visit: Depression Admit Date/Time: 06/20/21 16:52 Admit Provider: Elaine Avendaño Attending Provider: Elaine Avendaño Primary Care Provider: Eric Singer [facility] Hospital Course: This is a 25-year-old female presents to the ER with complaint of suicidal ideation for the last few days, identifies as he and Teodora. Patient reports that he would overdose on his fluoxetine. Patient reports cutting his right anterior thigh yesterday. Denies any other actions of self-harm over the last couple of days. He does have a past medical history of depression, adjustment disorder with mixed anxiety, female to male transgender, kidney stones, asthma, atopic dermatitis. He reports taking testosterone patches for a female to male transgender goal and he is developing well every time with patch on. He reports that he has been putting a patch on every day for the last 3 weeks but has been having welts at the site. Also cut right thigh the day before, all lacerations are superficial, healing with no rash or sign of infection. He is medically cleared in the ED for psychiatric evaluation. plan is voluntary placement, either inpatient psychiatric unit vs care bed. He is admitted to med/surg awaiting a bed and today a bed is secured at the local care bed. He is being discharged accordingly. discharge discussed with Dr Avendaño. Home Meds and New Rx's Prescriptions: Continued ipratropium-albuterol 0.5 mg-3 mg(2.5 mg base)/3 mL solution for nebulization 3 ml Inhalation Q4H PRN (Reason: shortness of breath or wheezing) Qty: 90 RF: 3 ondansetron 4 mg tablet,disintegrating 4 mg PO Q8H PRN (Reason: nausea and vomiting) Qty: 30 RF: 0 (DME) nebulizer accessories Kit See Rx Instructions .ROUTE .MEDSUPPLY Qty: 1 RF: 0 medroxyprogesterone [Depo-Provera] 150 mg/mL syringe 150 mg IM Q12W Qty: 1 RF: 3 hydroxyzine HCl 10 mg tablet 30 mg PO QHS RF: 0 fluoxetine [Prozac] 20 mg capsule 20 mg PO DAILY RF: 0 prochlorperazine maleate [Compazine] 10 mg tablet 10 mg PO TID PRN (Reason: nausea and vomiting) Qty: 60 RF: 5 albuterol sulfate [ProAir HFA] 90 mcg/actuation HFA aerosol inhaler 2 puff Inhalation Q4H PRN Qty: 1 RF: 5 ibuprofen 800 mg tablet 800 mg PO Q8H Qty: 30 RF: 0 Androderm 4 mg/24 hr patch 24 hour 1 patch topical DAILY RF: 0 Discharge Instructions Instructions: Suicide Prevention (DC) Referrals: Eric Singer DO [Primary Care Provider] - Activity:: Activity as Tolerated Equipment/Supplies:: No Equipment Needed Diet:: As Tolerated Discharge Orders Discharge Orders: Discharge Order (Routine); Ordered 06/21/21 Ordered By: Amberly Villalobos DS: Summary Time Spent with Patient providing and/or coordinating discharge services: Less than 30 minutes Status at Discharge Functional status at discharge: independent ambulation Overall status at discharge: patient is not back to baseline Mental Status: mental status grossly normal Speech and Movement: speech and movement normal Mood: congruent mood Affect: blunted Exam Const General: cooperative, comfortable and no acute distress Nutritional Appearance: average body habitus Orientation: alert, awake and oriented x3 HENMT Head: normal to inspection, normocephalic and atraumatic Mouth: oral mucosae normal Resp Effort & Inspection: normal respiratory effort Auscultation: clear to auscultation bilaterally Cardio Rate: regular rate Rhythm: regular rhythm GI Inspection: normal to inspection Palpation: soft Auscultation: normal bowel sounds Skin Lesions: lesion noted (multiple superficial linear scratches to right lower thigh, no erythema) Rashes: no rashes Neuro General: patient alert, patient awake and patient oriented x3 Cognition: normal cognition Speech: speech normal Gait: normal gait Motor: muscle tone normal throughout Extrem General: normal to inspection, full ROM and no pedal edema Psych Appearance: grossly normal Mental Status: mental status grossly normal Speech and Movement: speech and movement normal Mood: congruent mood Affect: blunted Attitude: cooperative Thought Content: suicidality Insight: fair Judgment: fair DS: Data Vitals/I&O Vitals and I&O: Vital Signs Temperature 36.5 C 06/20/21 22:16 Temperature Source Temporal Artery Scan 06/20/21 22:16 Pulse 81 06/20/21 18:19 Pulse Rhythm Regular 06/21/21 12:06 Respiratory Rate 16 06/20/21 22:16 Respiratory Effort Non-Labored 06/21/21 12:06 Respiratory Depth Normal 06/21/21 12:06 Respiratory Pattern Normal 06/21/21 12:06 Blood Pressure 103/70 06/20/21 22:16 Blood Pressure Position Sitting 06/20/21 12:34 Pulse Oximetry 96 06/20/21 22:16 Oxygen Delivery Method Room Air 06/20/21 22:16 Oxygen Flow Rate 0 06/20/21 22:16 Pain Level 0 06/20/21 22:16 Comment 06/20/21 18:08 Intake & Output 06/20/21 06/21/21 06/21/21 23:59 11:59 23:59 Intake Total 480 / 480 Balance 480 / 480 Weight 68.039 kg Intake: Oral 480 / 480 Other: Urine Appearance Clear Clear Data Completed and Pending Labs on day of discharge: Labs from last 24 hours 06/20/21 06/20/21 06/20/21 17:03 13:27 13:27 Sodium Potassium Chloride Carbon Dioxide Anion Gap BUN Creatinine Estimated GFR/1.73 m2 Glucose Calcium Total Bilirubin AST ALT Alkaline Phosphatase Total Protein Albumin TSH Urine Color Yellow Urine Clarity Clear Urine pH 7.5 Ur Specific [place] 1.025 Urine Protein Negative Urine Ketones Negative Urine Blood Negative Urine Nitrite Negative Urine Bilirubin Negative Urine Urobilinogen 1.0 H Ur Leukocyte Esterase Trace H Urine RBC 0-2 Urine WBC 3-5 Ur Epithelial Cells Many Urine Crystals Negative Urine Bacteria Few Urine Casts Negative Urine Mucus Moderate Ur Culture Indicated? No/Sq. Contamination Urine Glucose Negative Salicylates Urine Opiates Screen Negative Urine Methadone Screen Negative Acetaminophen Ur Barbiturates Screen Negative Ur Tricyclics Screen Negative Ur Amphetamines Screen Negative U Benzodiazepines Scrn Negative Urine Cocaine Screen Negative Ur THC Screen Negative Ethyl Alcohol COVID-19 Source Nasal/Nares SARS-CoV-2 (PCR) Negative 06/20/21 06/20/21 13:14 13:14 Sodium 142 Potassium 3.7 Chloride 107 Carbon Dioxide 25.2 Anion Gap 9.8 BUN 10 Creatinine 0.8 Estimated GFR/1.73 m2 >= 60.00 Glucose 85 Calcium 9.3 Total Bilirubin 0.6 AST 15 ALT 26 Alkaline Phosphatase 87 Total Protein 7.9 Albumin 4.0 TSH 0.36 Urine Color Urine Clarity Urine pH Ur Specific [place] Urine Protein Urine Ketones Urine Blood Urine Nitrite Urine Bilirubin Urine Urobilinogen Ur Leukocyte Esterase Urine RBC Urine WBC Ur Epithelial Cells Urine Crystals Urine Bacteria Urine Casts Urine Mucus Ur Culture Indicated? Urine Glucose Salicylates < 2.8 Urine Opiates Screen Urine Methadone Screen Acetaminophen < 2 Ur Barbiturates Screen Ur Tricyclics Screen Ur Amphetamines Screen U Benzodiazepines Scrn Urine Cocaine Screen Ur THC Screen Ethyl Alcohol < 3.0 COVID-19 Source SARS-CoV-2 (PCR) [facility] Medical History Adjustment disorder with mixed anxiety and depressed mood per [facility] Mikayla cedillo Allergic rhinitis Alopecia (capitis) totalis Asthma Atopic dermatitis Contraceptive management Depression (01/24/15) 04/25 - 05/02/18 Inpatient [facility] Psychiatric Services (depression with suicidal ideation) [place] transgender person Preferred name: Teodora He/Him pronouns 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 F/u echo in 5 years Urinary tract infection requiring hospitalization Surgical History Status post dilation and curettage Family History Mother Obstructive sleep apnea syndrome uses cpap hs Father Esophageal stricture Diabetes Sister Mental disorder Depression Brother Asthma Social History Smoking/Tobacco Use Status: Current-Occasional Tobacco Type: cigarettes Tobacco: How many years used: 1 Quit status: quit date established Smoking risk assessment performed?: Yes Alcohol Intake: former Drug use: Occasionally Substance use type: marijuana Details: few times a month; pt reports none on DOS 06/10/21 What type of physical activity do you participate in: walking Frequency: daily Seatbelt use: always Do you feel safe at home: Yes Do you feel safe in your relationship?: Yes Female Reproductive History Menstrual control method: progestin IUCD
--- NOTE | 2021-06-21 14:31 | CMDISCH_ITS ---
- If Service Date Differs Date of service: 06/21/21 Time of Service: 14:31 LACE Index Scoring Tool - Questions: Length of Stay (in days): 1 Acuity (Admit via E.D.?): Yes E.D. Visits: 6 - Answers: Total Score: 8 Risk of Readmission: Low Risk Care Management Discharge Reason for Hospitalization: Suicidal ideation Discharge Plan: Discharge to the [facility] Care Bed in [facility]. Transportation arranged by Ana Luisa from [employer]. Follow up with community providers and [facility]. Patient/Family Education Needs: Review discharge instructions and plan to follow up with [facility] providers. Ask me three. - MH Services (Omit if N/A) Current MH Services: Care Bed Referred to Internal [facility] (ED embedded) pillowcase turner?: Yes - Disposition Disposition: [facility], Other ([facility] Carebed in [facility]) Transport via of: Other (Arranged by [facility] [employer])
--- NOTE | 2021-06-21 14:31 | PDOC.CMDIS ---
- If Service Date Differs Date of service: 06/21/21 Time of Service: 14:31 LACE Index Scoring Tool - Questions: Length of Stay (in days): 1 Acuity (Admit via E.D.?): Yes E.D. Visits: 6 - Answers: Total Score: 8 Risk of Readmission: Low Risk Care Management Discharge Reason for Hospitalization: Suicidal ideation Discharge Plan: Discharge to the [facility] Care Bed in [facility]. Transportation arranged by Ana Luisa from [employer]. Follow up with community providers and [facility]. Patient/Family Education Needs: Review discharge instructions and plan to follow up with [facility] providers. Ask me three. - MH Services (Omit if N/A) Current MH Services: Care Bed Referred to Internal [facility] (ED embedded) assistant case manager?: Yes - Disposition Disposition: [facility], Other ([facility] Carebed in [facility]) Transport via of: Other (Arranged by [facility] [employer] MACHINE OPERATOR)
--- NOTE | 2021-06-21 16:38 | PDOC.MHCN_ITS ---
Date of service: 06/21/21 Time of Service: 16:38 Mental Health Crisis Note Presenting Issue How did you arrive at the ED and why did you come: patient was brought in to ED on 06/20/2021 due to suicidal ideation and harming herself. She is awaiting placement at [facility] Precipitating Factors Patient met for a discharge assessment before entering Care Bed. Client states she is still having suicidal thoughts and she is thinking about harming herself. She also has auditory hallucinations and they are voices from outside herself. Disposition BEHAVIOR: She is calm and cooperative EYE CONTACT: makes good direct eye contact on the screen MOOD: her mood is depressed AFFECT: her affect is flat APPETITE: eating ok SLEEP(trouble falling/staying asleep: trouble sleepng she has not been taking her medication Plan Client will be accepted at [facility] for further stabilization of mental health symptoms and medication management Signature Clinician's Name/Title: Ana Luisa Jolly [facility] Nurse Intern
== END 2021-06-21 15:26 | disposition designated cancer center or children's hospital (05) ==
LOC: ER 12:56 → MS 18:31
PROVIDERS: Admitting Provider Internal Medicine; Emergency Provider Registered Nurse Emergency; PCP Family Medicine; Visit Provider Internal Medicine
DX: F33.2 Major depressive disorder, recurrent severe without psychotic features (principal); R45.851 Suicidal ideations; S71.111A Laceration without foreign body, right thigh, initial encounter; X78.9XXA Intentional self-harm by unspecified sharp object, initial encounter; J45.909 Unspecified asthma, uncomplicated; F64.0 Transsexualism; F43.23 Adjustment disorder with mixed anxiety and depressed mood; I37.8 Other nonrheumatic pulmonary valve disorders; Z79.899 Other long term (current) drug therapy; F17.210 Nicotine dependence, cigarettes, uncomplicated; L20.9 Atopic dermatitis, unspecified
CPT/HCPCS: 80053; 80307; 81025; 87635; 90686; 99285; 80320; 80329; 81003; 81015; 84443; 85025; 99217; 99219; 99284; G0378

== ENCOUNTER 2021-07-03 20:38 | Outpatient (REF) | payer MEDICAID, SELFPAY ==
[2021-07-03 20:56] LABS: HCG Qual (Serum) Negative
== END 2021-07-03 20:39 | disposition home or self-care (01) ==
LOC: LBN 20:38
PROVIDERS: PCP Family Medicine; Visit Provider Physician Assistant Medical
DX: N91.2 Amenorrhea, unspecified (principal)
CPT/HCPCS: 84703

== ENCOUNTER 2021-07-24 02:02 | Emergency (ER) | payer MEDICAID, SELFPAY ==
[2021-07-24 02:11] VITALS: BP 111/70; PULSE 99; RESP 21; TEMP 36.7; O2SAT 97
--- NOTE | 2021-07-24 02:15 | DI.RAD_ITS ---
Exam(s) XR PORTABLE CHEST AP EXAM: XR PORTABLE CHEST AP CLINICAL HISTORY: asthma attack, cough, wheeze, r/o pneumonia. TECHNIQUE: 2D digital imaging was performed. COMPARISON: CR XR CHEST 2V PA LATERAL from 10/05/2019 FINDINGS: Heart size is upper normal. The mediastinum is not widened. Lungs are clear. No infiltrates nor obvious pleural effusions. IMPRESSION: No acute pulmonary findings on this single AP portable view of the chest. DATA REPOSITORY: RADIATION DOSE DELIVERED: All CT scans at this facility use at least one of these dose optimization techniques: automated exposure control; mA and/or kV adjustment per patient size (includes targeted e xams where dose is matched to clinical indication); or iterative reconstruction.
--- NOTE | 2021-07-24 02:22 | ED.GENADUL_ITS ---
Discharge Plan Disposition Patient Disposition: HOME Condition: Good Discharge Details Clinical Impression: Asthma Primary Care Provider: Eric Singer ED Provider: Jose Armando Whiting Home Meds and New Rx's Prescriptions: New prednisone 50 MG tablet 50 mg PO DAILY Qty: 5 RF: 0 Continued ipratropium-albuterol 0.5 mg-3 mg(2.5 mg base)/3 mL solution for nebulization 3 ml Inhalation Q4H PRN (Reason: shortness of breath or wheezing) Qty: 90 RF: 3 ondansetron 4 mg tablet,disintegrating 4 mg PO Q8H PRN (Reason: nausea and vomiting) Qty: 30 RF: 0 aripiprazole [Abilify] 20 mg tablet 20 mg PO DAILY RF: 0 (DME) nebulizer accessories Kit See Rx Instructions .ROUTE .MEDSUPPLY Qty: 1 RF: 0 medroxyprogesterone [Depo-Provera] 150 mg/mL syringe 150 mg IM Q12W Qty: 1 RF: 3 hydroxyzine HCl 10 mg tablet 30 mg PO QHS RF: 0 fluoxetine [Prozac] 20 mg capsule 20 mg PO DAILY RF: 0 prochlorperazine maleate [Compazine] 10 mg tablet 10 mg PO TID PRN (Reason: nausea and vomiting) Qty: 60 RF: 5 albuterol sulfate [ProAir HFA] 90 mcg/actuation HFA aerosol inhaler 2 puff Inhalation Q4H PRN Qty: 1 RF: 5 ibuprofen 800 mg tablet 800 mg PO Q8H Qty: 30 RF: 0 Androderm 4 mg/24 hr patch 24 hour 1 patch topical DAILY RF: 0 Hold Instructions: Home Medication placed on hold at Doctor's office Discharge Instructions Instructions: Asthma (ED) Additional Instructions: At this time your symptoms are notably improved. A prescription for prednisone has been sent to your pharmacy. Please take this as directed. Please continue to use your inhaler, 2 puffs every 4-6 hours, and you can use your nebulizer as well as needed. If you notice any worsening of your symptoms, or any new symptoms such as vomiting, diarrhea, fever, chills, shortness of breath, chest pain, numbness, weakness, or fainting , please return immediately to the emergency department for reevaluation. Please follow up with your primary care provider as soon as possible for reassessment and reevaluation. As always, it was a pleasure participating in your medical care today. Referrals: Eric Singer DO [Primary Care Provider] - Medical Decision Making 25-year-old female who identifies as male presents today for evaluation of asthma. She has a past medical history of asthma, she states that about 5 to 7 days ago she developed a mild cough, runny nose and congestion. The symptoms have all since resolved however she states that she feels a persistent wheeze. She did take her inhaler at home but this did not improve her symptoms. She does have a nebulizer but is unable to use it as she does not have any tubing. She denies any chest pain or severe shortness of breath. She denies any persistent cough or hemoptysis. She denies any recent long trips, surgeries, or procedures. No other complaints at this time. No other modifying factors. Physical exam demonstrates minimal to mild wheezes, oxygenation is 97% on room air. No signs of respiratory distress. Symptoms at this time are consistent with mild asthma exacerbation. Will give prednisone, breathing treatment, get a chest x-ray to evaluate for any evidence of pneumonia. Patient otherwise is stable, and appropriate for outpatient management. 3:08 AM Patient chest x-ray is negative for acute process. After breathing treatments she feels significantly better. She still shows no signs of respiratory distress. Wheezes on reassessment are notably improved. Patient stable for discharge. Gave her the additional tubing necessary. We will send a prescription for prednisone burst to her pharmacy. Recommend continued inhaler and nebs at home as needed. I have extensively reviewed the treatment plan and discharge instructions with the patient. I have addressed all patient concerns at this time. The patient was made aware of what symptoms to monitor for that would warrant a return to the emergency department. Discussed the plan with the patient, they demonstrate verbal understanding and agreement with our assessment and plan at this time. The documentation in this chart was dictated using [employer] dictation software. Please excuse any dictation errors. FINDINGS: Lungs: Mild chronic interstitial prominence. No consolidation. Pleural spaces: Unremarkable. No pleural effusion. No pneumothorax. Heart/Mediastinum: Unremarkable. No cardiomegaly. Bones/joints: Unremarkable. IMPRESSION: No acute findings. No radiographic evidence for pneumonia Thank you for allowing us to participate in the care of your patient. Dictated and Authenticated by: Adam De La Cruz MD 07/24/2021 2:46 AM Eastern Time ([place] & [place]) HPI General Date/Time Provider Initiated Documentation: 07/24/21 02:13 . HPI Narrative: 25-year-old female who identifies as male presents today for evaluation of asthma. She has a past medical history of asthma, she states that about 5 to 7 days ago she developed a mild cough, runny nose and congestion. The symptoms have all since resolved however she states that she feels a persistent wheeze. She did take her inhaler at home but this did not improve her symptoms. She does have a nebulizer but is unable to use it as she does not have any tubing. She denies any chest pain or severe shortness of breath. She denies any persistent cough or hemoptysis. She denies any recent long trips, surgeries, or procedures. No other complaints at this time. No other modifying factors. Related Data Home Medications Medication Instructions Recorded Confirmed nebulizer accessories #1 each 08/17/19 06/10/21 ipratropium 0.5 mg-albuterol 3 mg 3 ml INHALATION Q4H PRN #90 ml 07/15/20 07/24/21 (2.5 mg base)/3 mL nebulization soln hydroxyzine HCl 10 mg tablet 30 mg PO QHS tab 08/03/20 07/24/21 fluoxetine 20 mg capsule 20 mg PO DAILY 11/07/20 07/24/21 ondansetron 4 mg disintegrating 4 mg PO Q8H PRN #30 tab 12/15/20 07/24/21 tablet prochlorperazine maleate 10 mg 10 mg PO TID PRN #60 tab 12/19/20 07/24/21 tablet ibuprofen 800 mg PO Q8H #30 tab 04/20/21 07/24/21 albuterol sulfate 90 mcg/actuation 2 puff INHALATION Q4H PRN #1 04/24/2107/24 aerosol inhaler inhaler medroxyprogesterone 150 mg/mL 150 mg IM Q12W #1 ml 05/08/21 07/24/21 intramuscular syringe Androderm 1 patch TOPICAL DAILY 06/10/21 07/24/21 aripiprazole 20 mg tablet 20 mg PO DAILY 07/04/21 07/24/21 prednisone 50 mg PO DAILY #5 tab 07/24/21 Previous Rx's Medication Instructions Recorded nebulizer accessories #1 each 08/17/19 ipratropium 0.5 mg-albuterol 3 mg 3 ml INHALATION Q4H PRN #90 ml 07/15/20 (2.5 mg base)/3 mL nebulization soln ondansetron 4 mg disintegrating 4 mg PO Q8H PRN #30 tab 12/15/20 tablet prochlorperazine maleate 10 mg 10 mg PO TID PRN #60 tab 12/19/20 tablet ibuprofen 800 mg PO Q8H #30 tab 04/20/21 albuterol sulfate 90 mcg/actuation 2 puff INHALATION Q4H PRN #1 04/24/21 aerosol inhaler inhaler medroxyprogesterone 150 mg/mL 150 mg IM Q12W #1 ml 05/08/21 intramuscular syringe prednisone 50 mg PO DAILY #5 tab 07/24/21 Allergies Allergy/AdvReac Type Severity Reaction Status Date / Time peanut Allergy Intermediate Swelling/Ed Unverified 07/04/21 13:26 josy citalopram AdvReac Intermediate insomnia Verified 07/04/21 13:26 ultrasound gel Allergy Intermediate Itching Uncoded 07/04/21 13:26 General Stated Complaint: RespSymp CONOR: 4 Review of Systems All systems reviewed & are unremarkable except as noted in HPI and below PFSH Medical History Adjustment disorder with mixed anxiety and depressed mood per [facility] Mikayla cedillo Allergic rhinitis Alopecia (capitis) totalis Asthma Atopic dermatitis Contraceptive management Depression (01/24/15) 04/25 - 05/02/18 Inpatient [facility] (depression with suicidal ideation) [id number] transgender person Preferred name: Teodora He/Him pronouns 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 F/u echo in 5 years Severe major depression with psychotic features Urinary tract infection requiring hospitalization Surgical History Status post dilation and curettage Family History Mother Obstructive sleep apnea syndrome uses cpap hs Father Esophageal stricture Diabetes Sister Mental disorder Depression Brother Asthma Social History Smoking/Tobacco Use Status: Current-Occasional Tobacco Type: cigarettes Tobacco: How many years used: 1 Quit status: quit date established Smoking risk assessment performed?: Yes Alcohol Intake: former Drug use: Occasionally Substance use type: marijuana Details: few times a month; pt reports none on DOS 06/10/21 What type of physical activity do you participate in: walking Frequency: daily Seatbelt use: always Do you feel safe at home: Yes Do you feel safe in your relationship?: Yes Female Reproductive History Menstrual control method: progestin IUCD Exam Narrative Exam Narrative: 1.Const: Well-nourished, Well-developed, appearing stated age 2.Eyes: PERRL, no conjunctival injection, and symmetrical lids. 3.ENT: Atraumatic external nose and ears. Moist MM. Neck: Symmetric, trachea midline, No thyromegaly. 4.CVS: +S1/S2, No murmurs or gallops. Peripheral pulses 2+ and equal in all extremities. Brisk capillary refill in all extremities. 5.RESP: Unlabored respiratory effort. Mild wheeze throughout. No rhonchi or rales. No respiratory distress. 6.GI: Soft, Nontender/Nondistended, No hepatosplenomegaly. No guarding or rebound. 7.MSK: Normocephalic/Atraumatic, Extremities w/o deformity or ttp No cyanosis or clubbing, Normal movement of all extremities 8.Skin: Warm, Dry. No rashes or lesions. 9.Neuro: alarm security or surveillance monitor II-XII grossly intact. Sensation grossly intact, no focal neurologic deficits. 10.Psych: (AAO) x3. Appropriate mood and affect Course Vital Signs Vital signs: Vital Signs Temperature 36.7 C 07/24/21 02:11 Pulse 99 H 07/24/21 02:11 Respiratory Rate 21 07/24/21 02:11 Blood Pressure 111/70 07/24/21 02:11 Pulse Oximetry 97 07/24/21 02:11 Temperature 36.7 C 07/24/21 02:11 Temperature Source Temporal Artery Scan 07/24/21 02:11 Pulse 99 H 07/24/21 02:11 Respiratory Rate 21 07/24/21 02:11 Respiratory Effort Non-Labored 07/24/21 02:16 Respiratory Depth Normal 07/24/21 02:16 Blood Pressure 111/70 07/24/21 02:11 Blood Pressure Position Sitting 07/24/21 02:11 Pulse Oximetry 97 07/24/21 02:11 Oxygen Delivery Method Room Air 07/24/21 02:11 Oxygen Flow Rate 0 07/24/21 02:11 Pain Level 0 07/24/21 02:11
--- NOTE | 2021-07-24 02:46 | DI.VRAD_ITS ---
PROCEDURE INFORMATION: Exam: XR Chest Exam date and time: 07/24/2021 2:22 AM Age: 25 years old Clinical indication: Cough and wheezing; Patient HX: Asthma attack, cough, wheeze, R/O pneumonia TECHNIQUE: Imaging protocol: XR of the chest. Views: 1 view. COMPARISON: CR XR CHEST 2V PA LATERAL 10/05/2019 2:21 PM FINDINGS: Lungs: Mild chronic interstitial prominence. No consolidation. Pleural spaces: Unremarkable. No pleural effusion. No pneumothorax. Heart/Mediastinum: Unremarkable. No cardiomegaly. Bones/joints: Unremarkable. IMPRESSION: No acute findings. No radiographic evidence for pneumonia Dictated and Authenticated by: Adam De La Cruz MD. Ordering:WARD Suárez MD
[2021-07-24 03:14] VITALS: BP 112/82; PULSE 89; RESP 20; TEMP 36.8; O2SAT 97
== END 2021-07-24 03:15 | disposition home or self-care (01) ==
PROVIDERS: Emergency Provider Student in an Organized Health Care Education/Training Program; PCP Family Medicine
DX: J45.909 Unspecified asthma, uncomplicated (principal)
CPT/HCPCS: 99283; 71045

== ENCOUNTER 2021-07-28 01:07 | Emergency (ER) | payer MEDICAID, SELFPAY ==
[2021-07-28 01:11] VITALS: BP 123/77; PULSE 98; RESP 21; TEMP 36.6; O2SAT 97
[2021-07-28 01:22] VITALS: RESP 19
--- NOTE | 2021-07-28 01:28 | ED.GENADUL_ITS ---
Discharge Plan Disposition Patient Disposition: HOME Condition: Stable Discharge Details Clinical Impression: Asthma, Bronchitis Primary Care Provider: Eric Singer ED Provider: Moe Knutson Home Meds and New Rx's Prescriptions: New doxycycline hyclate 100 mg tablet 100 mg PO BID Qty: 14 RF: 0 Continued ipratropium-albuterol 0.5 mg-3 mg(2.5 mg base)/3 mL solution for nebulization 3 ml Inhalation Q4H PRN (Reason: shortness of breath or wheezing) Qty: 90 RF: 3 ondansetron 4 mg tablet,disintegrating 4 mg PO Q8H PRN (Reason: nausea and vomiting) Qty: 30 RF: 0 aripiprazole [Abilify] 20 mg tablet 20 mg PO DAILY RF: 0 (DME) nebulizer accessories Kit See Rx Instructions .ROUTE .MEDSUPPLY Qty: 1 RF: 0 medroxyprogesterone [Depo-Provera] 150 mg/mL syringe 150 mg IM Q12W Qty: 1 RF: 3 hydroxyzine HCl 10 mg tablet 30 mg PO QHS RF: 0 fluoxetine [Prozac] 20 mg capsule 20 mg PO DAILY RF: 0 prochlorperazine maleate [Compazine] 10 mg tablet 10 mg PO TID PRN (Reason: nausea and vomiting) Qty: 60 RF: 5 albuterol sulfate [ProAir HFA] 90 mcg/actuation HFA aerosol inhaler 2 puff Inhalation Q4H PRN Qty: 1 RF: 5 Flovent HFA 220 mcg/actuation HFA aerosol inhaler 2 puff Inhalation BID PRN (Reason: wheezing, cough, sob) Qty: 1 RF: 5 prednisone 50 MG tablet 50 mg PO DAILY Qty: 5 RF: 0 ibuprofen 800 mg tablet 800 mg PO Q8H Qty: 30 RF: 0 Androderm 4 mg/24 hr patch 24 hour 1 patch topical DAILY RF: 0 Hold Instructions: Home Medication placed on hold at Doctor's office Discharge Instructions Instructions: Acute Bronchitis (ED) Additional Instructions: you had no wheezing to suggest you needed additional medicine for asthma you are being treated for a lung infection follow up with your primary care provider within 1 week if symptoms continue if you feel more ill or have worsening shortness of breath return to the emergency department Stand Alone Forms: PENDING COVID-19 TESTING Medical Decision Making 26 yo who identifies as male and has a hx of asthma comes in with complaint of one week of cough. She was seen on 07/24 and treated for asthma with nebulizer and placed on prednisone which she has continued. She had a unremarkable xray at that time. Despite home nebulizers and prednisone continues to cough so came here. She denies fevers or chills and no chest pain. Is vaccinated for covid per patient. She is in no distress on exam with stable vitals. Intermittent dry cough. She has no leg swelling or jvd. She has no murmurs, no wheezing though does have mild rhonchi at the bases. No calf tenderness. Her symptoms are consistent with likely bronchitis but given continued symptoms and lung exam findings will initiate treatment for possible CAP with doxy. She has no evidence of dvt on exam and no hypoxia or tachycardia so doubt PE. NO leg swelling or jvd or crackles so doubt myocarditis at this time. No findings to suggest acute asthma exacerbation so do not feel additional therapy indicated. Stable for d/c and discussed following up with her pcp and return precautions given Differential Diagnosis Differential Diagnosis: cap, mycoplasma, asthma Medical Records Medical records reviewed: Yes I reviewed the patient's medical records. HPI General Mode of arrival: ambulatory . Date/Time Provider Initiated Documentation: 07/28/21 01:08 . Limitations to Documentation: no limitations . Information obtained by: patient . History of Present Illness 26 year old F presents to the emergency department with the chief complaint of cough, described as moderate, Patient started experiencing this week(s) (1) and it has been constant. No relieving factors improve symptom(s), No exacerbating factors reported . Related Data Home Medications Medication Instructions Recorded Confirmed nebulizer accessories #1 each 08/17/19 06/10/21 ipratropium 0.5 mg-albuterol 3 mg 3 ml INHALATION Q4H PRN #90 ml 07/15/20 07/28/21 (2.5 mg base)/3 mL nebulization soln hydroxyzine HCl 10 mg tablet 30 mg PO QHS tab 08/03/20 07/28/21 fluoxetine 20 mg capsule 20 mg PO DAILY 11/07/20 07/28/21 ondansetron 4 mg disintegrating 4 mg PO Q8H PRN #30 tab 12/15/20 07/28/21 tablet prochlorperazine maleate 10 mg 10 mg PO TID PRN #60 tab 12/19/20 07/28/21 tablet ibuprofen 800 mg PO Q8H #30 tab 04/20/21 07/28/21 albuterol sulfate 90 mcg/actuation 2 puff INHALATION Q4H PRN #1 04/24/21 07/28/21 aerosol inhaler inhaler medroxyprogesterone 150 mg/mL 150 mg IM Q12W #1 ml 05/08/21 07/28/21 intramuscular syringe Androderm 1 patch TOPICAL DAILY 06/10/21 07/28/21 aripiprazole 20 mg tablet 20 mg PO DAILY 07/04/21 07/28/21 prednisone 50 mg PO DAILY #5 tab 07/24/21 07/28/21 fluticasone propionate 220 2 puff INHALATION BID PRN #1 inh 07/26/21 07/28/21 mcg/actuation HFA aerosol inhaler doxycycline hyclate 100 mg PO BID #14 tab 07/28/21 Previous Rx's Medication Instructions Recorded nebulizer accessories #1 each 08/17/19 ipratropium 0.5 mg-albuterol 3 mg 3 ml INHALATION Q4H PRN #90 ml 07/15/20 (2.5 mg base)/3 mL nebulization soln ondansetron 4 mg disintegrating 4 mg PO Q8H PRN #30 tab 12/15/20 tablet prochlorperazine maleate 10 mg 10 mg PO TID PRN #60 tab 12/19/20 tablet ibuprofen 800 mg PO Q8H #30 tab 04/20/21 albuterol sulfate 90 mcg/actuation 2 puff INHALATION Q4H PRN #1 04/24/21 aerosol inhaler inhaler medroxyprogesterone 150 mg/mL 150 mg IM Q12W #1 ml 05/08/21 intramuscular syringe prednisone 50 mg PO DAILY #5 tab 07/24/21 fluticasone propionate 220 2 puff INHALATION BID PRN #1 inh 07/26/21 mcg/actuation HFA aerosol inhaler doxycycline hyclate 100 mg PO BID #14 tab 07/28/21 Allergies Allergy/AdvReac Type Severity Reaction Status Date / Time peanut Allergy Intermediate Swelling/Ed Unverified 07/04/21 13:26 josy citalopram AdvReac Intermediate insomnia Verified 07/04/21 13:26 ultrasound gel Allergy Intermediate Itching Uncoded 07/04/21 13:26 General Stated Complaint: SOB CONOR: 3 Review of Systems All systems reviewed & are unremarkable except as noted in HPI and below Constitutional Constitutional: Denies chills, Denies fever(s) and Denies weakness Cardiovascular Cardiovascular: Denies chest pain and Denies dyspnea Respiratory Respiratory: Denies dyspnea Gastrointestinal Gastrointestinal: Denies abdominal pain, Denies nausea and Denies vomiting Musculoskeletal Musculoskeletal: Denies joint swelling Neurologic Neurologic: Denies weakness [facility] Medical History Adjustment disorder with mixed anxiety and depressed mood per [facility] Mikayla cedillo Allergic rhinitis Alopecia (capitis) totalis Asthma Atopic dermatitis Contraceptive management Depression (01/24/15) 04/25 - 05/02/18 Inpatient [facility] (depression with suicidal ideation) [employer]graz transgender person Preferred name: Teodora He/Him pronouns 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 F/u echo in 5 years Severe major depression with psychotic features Urinary tract infection requiring hospitalization Surgical History Status post dilation and curettage Family History Mother Obstructive sleep apnea syndrome uses cpap hs Father Esophageal stricture Diabetes Sister Mental disorder Depression Brother Asthma Social History Smoking/Tobacco Use Status: Current-Occasional Tobacco Type: cigarettes Tobacco: How many years used: 1 Quit status: quit date established Smoking risk assessment performed?: Yes Alcohol Intake: former Drug use: Occasionally Substance use type: marijuana Details: few times a month; pt reports none on DOS 06/10/21 What type of physical activity do you participate in: walking Frequency: daily Seatbelt use: always Do you feel safe at home: Yes Do you feel safe in your relationship?: Yes Female Reproductive History Menstrual control method: progestin IUCD Exam Const General: no acute distress Orientation: alert HENMT Head: normal to inspection Ears: external ears normal General nose exam: external nose normal Mouth: moist mucous membranes Eyes General: appearance normal, both eyes and all related structures Neck Neck: normal visual inspection Resp Effort & Inspection: normal respiratory effort and able to speak in complete sentences Cardio Rate: regular rate Skin General skin exam: no rashes or lesions noted Neuro General: patient alert and patient oriented x3 Extrem General: normal to inspection Psych Mental Status: mental status grossly normal Course Vital Signs Vital signs: Vital Signs Temperature 36.6 C 07/28/21 01:11 Pulse 98 H 07/28/21 01:11 Respiratory Rate 07/28/21 01:11 Blood Pressure 123/77 07/28/21 01:11 Pulse Oximetry 97 07/28/21 01:11 Temperature 36.6 C 07/28/21 01:11 Temperature Source Temporal Artery Scan 07/28/21 01:11 Pulse 98 H 07/28/21 01:11 Respiratory Rate 19 07/28/21 01:22 Respiratory Effort Short of Breath 07/28/21 01:22 Respiratory Depth Normal 07/28/21 01:22 Respiratory Pattern Normal 07/28/21 01:22 Blood Pressure 123/77 07/28/21 01:11 Blood Pressure Position Sitting 07/28/21 01:11 Pulse Oximetry 97 07/28/21 01:11 Oxygen Delivery Method Room Air 07/28/21 01:11 Oxygen Flow Rate 0 07/28/21 01:11 Pain Level 5 07/28/21 01:11
[2021-07-28] MEDS: Doxycycline Hyclate 100 MG CAP PO (01:32)
[2021-07-28] MEDS: Dextromethorphan 6 MG/ML Suspension 60 MG PO (01:44)
[2021-07-29 13:42] LABS: COVID-19 RT-PCR UVMMC Result Negative (Negative)
--- NOTE | 2021-07-30 08:39 | NUR.NOTE ---
Nursing Note: Attempted to call COVID result at 0839, no VM left as VM was 'not accepting calls'.
--- NOTE | 2021-07-31 12:48 | NUR.NOTE ---
negative covid result mailed to pt.Nursing Note:
== END 2021-07-28 01:45 | disposition home or self-care (01) ==
PROVIDERS: Emergency Provider Emergency Medicine; PCP Family Medicine
DX: J45.909 Unspecified asthma, uncomplicated (principal); R05.9 Cough, unspecified; Z20.822 Contact with and (suspected) exposure to COVID-19
CPT/HCPCS: 99283; U0003

== ENCOUNTER 2021-08-15 12:48 | Outpatient (REF) | payer MEDICAID, SELFPAY ==
[2021-08-16 14:25] LABS: COVID-19 RT-PCR UVMMC Result Negative (Negative)
== END 2021-08-15 12:49 | disposition home or self-care (01) ==
LOC: LBN 12:48
PROVIDERS: PCP Family Medicine; Visit Provider Nurse Practitioner Family
DX: Z20.822 Contact with and (suspected) exposure to COVID-19 (principal); R11.2 Nausea with vomiting, unspecified
CPT/HCPCS: U0003

== ENCOUNTER 2021-08-17 07:58 | Observation (INO) | payer MEDICAID, SELFPAY ==
[2021-08-17] VITALS (75 sets, daily range): BP systolic 90–121; BP diastolic 47–74; PULSE 77–121; RESP 2–31; TEMP 36.3–36.7; O2SAT 89–100
[2021-08-17] MEDS: Albuterol/Ipratropium 3 ML UPD VIAL (08:06)
[2021-08-17] MEDS: Albuterol/Ipratropium 3 ML UPD VIAL UPD ×2 (08:15→09:42)
--- NOTE | 2021-08-17 08:15 | DI.CT_ITS ---
Exam(s) CT CHEST PE CTA EXAM: CT CHEST PE CTA CLINICAL HISTORY: chest pain, recurrent sob, on testosterone. TECHNIQUE: Imaging Protocol: CT angiography of the chest was performed using pulmonary embolus nick col. Multi planar reconstructions were performed. CONTRAST MATERIAL: Intravenous: Omnipaque 350 Contrast volume: 100 cc COMPARISON: CT CT ABDOMEN PELVIS W from 03/04/2020 FINDINGS: CHEST: PULMONARY ARTERIES: Somewhat less than optimal injection timing. There are no obvious intraluminal f illing defects to suggest acute pulmonary emboli. LUNGS: There is some infiltrate in the left upper lobe adjacent to the aortic arch. Also mild infilt rate in the right infrahilar region. No focal findings in trachea and mainstem bronchi.. There are no pleural effusions. MEDIASTINUM: There is no hilar nor mediastinal adenopathy. Visualized thyroid unremarkable. CARDIAC: Heart size is upper normal. There is no pericardial effusion.Caliber of the thoracic aorta is within normal limits. There is no significant shift of the interventricular septum. PARTIALLY VISUALIZED UPPERMOST ABDOMEN: No obvious findings OSSEOUS: No significant osseous lesions.. IMPRESSION: 1. No evidence of obvious acute pulmonary emboli. No evidence of pulmonary infarction. 2. However, there is some infiltrate in the left upper lobe adjacent to the aortic arch and a smaller amount of infiltrate the right lower lobe. 3. No pleural effusions RADIATION DOSE DELIVERED: 307.84mGy.cm Total DLP DATA REPOSITORY: All CT scans at this facility are submitted to the National Radiology Data Registry (NRDR) Dose Index Registry (DIR) with the [employer] (ACR). RADIATION OPTIMIZATION: All CT scans at this facility use at least one of these dose optimization te chniques: automated exposure control; mA and/or kV adjustment per patient size (includes targeted exa ms where dose is matched to clinical indication); or iterative reconstruction.
[2021-08-17 08:48] LABS: Abs Immature Grans 0.03 10^3/uL (0.0-0.06); Absolute Eosinophil Count 1.08 10^3/uL (0.0-0.7); Absolute Monocyte Count 0.57 10^3/uL (0.1-0.8); Absolute Neutrophil Count 8.26 10^3/uL (1.2-6.7); Basophils % 0.7; Eosinophils % 8.8; HCT 43.6 % (36.0-46.0); HGB 13.9 g/dL (11.2-15.7); Immature Grans % 0.2; MCH 28.3 pg (27.0-33.0); MCHC 31.9 % (32.0-36.0); MCV 88.6 fL (80-95); MPV 11.2 fL (8.0-11.0); Monocytes % 4.7; Neutrophils % 67.6; Nucleated RBC 0 %; Platelet Count 303 10^3/uL (130-400); RBC 4.92 10^6/uL (3.93-5.22); RDW 12.6 % (11.7-14.6); RDW-SD 41.2 fL; WBC 12.22 10^3/uL (4.4-10.8)
[2021-08-17 08:49] LABS: Absolute Basophil Count 0.09 10^3/uL (0.0-0.2)
[2021-08-17] MEDS: Omnipaque 350 MG/ML 100 ML BTL IJ (08:54)
[2021-08-17] MEDS: Normal Saline Flush 10 ML SYR IVP (09:12)
--- NOTE | 2021-08-17 09:17 | ED.GENADUL_ITS ---
Discharge Plan Disposition Patient Disposition: [facility] INPATIENT Condition: Serious Discharge Details Chief Complaint: SOB Clinical Impression: Asthma, Hypokalemia, Hypomagnesemia Admit Date/Time: 08/17/21 15:37 Admit Provider: Elaine Avendaño Attending Provider: Elaine Avendaño Primary Care Provider: Eric Singer ED Provider: Daphnie Carson Discharge Data Discharge Date/Time-TO BE ENTERED AT DEPARTURE: 08/17/21 16:57 Medical Decision Making Patient is in respiratory distress upon initial evaluation, oxygenation 88% on room air Received 3 DuoNeb, remains diminished but has mildly increased aeration and is feeling symptomatically improved, oxygen 96% on room air now Received Solu-Medrol by EMS 125 prior to arrival Received 2 L bolus of normal saline for lactic acidosis and respiratory distress Lactate of initially 3.4, increased to 5.4,, patient's exam not necessarily consistent with a significant septic shock, no hypotension Hypokalemia, potassium of 2.8, supplemented Hypomagnesemia, supplemented with IV potassium Hypokalemia supplemented with 40 mEq of p.o. potassium EKG is abnormal, with diffuse T wave changes, unlikely related to have potassium of 2.8, no chest pain at this time Received ceftriaxone and doxycycline in the emergency room Covid negative Mild hypercalcemia, suspect sepsis induced Given patient's respiratory distress, failure of outpatient therapy, pneumonia on CT scan, discussed with radiologist, no evidence of pulmonary embolism, abnormal EKG, electrolyte abnormalities, I think patient would benefit from admission to the hospital at this time He is agreeable to admission Case was discussed with Dr. Avendaño who is willing to admit patient to the hospital ABG was requested and unfortunately mixed venous but without significant pH abnormality or hypercarbia HPI General Mode of arrival: ambulatory . Date/Time Provider Initiated Documentation: 08/17/21 08:02 . Limitations to Documentation: no limitations . Information obtained by: patient . HPI Narrative: This 26-year-old female with male transition presents with reports of persistent shortness of breath. Recent diagnosis of bronchitis and was treated with 1 week of steroids and regular neb treatments. States that today or for the past 24 hours has been using her inhaler every 2 hours. She states that she has some pleuritic pain. She does have a history of asthma typically she control her symptoms with inhaler use. he was on testosterone approximately a month ago but this has been discontinued. he also had a miscarriage at the end of April. Has not had a menstrual period as previously on Depo-Provera. Related Data Home Medications Medication Instructions Recorded Confirmed nebulizer accessories #1 each 08/17/19 06/10/21 ipratropium 0.5 mg-albuterol 3 mg 3 ml INHALATION Q4H PRN #90 ml 07/15/20 08/17/21 (2.5 mg base)/3 mL nebulization soln hydroxyzine HCl 10 mg tablet 10 - 30 mg PO DAILY tab 08/03/20 08/17/21 fluoxetine 20 mg capsule 20 mg PO DAILY 11/07/20 08/17/21 prochlorperazine maleate 10 mg 10 mg PO TID PRN #60 tab 12/19/20 08/17/21 tablet albuterol sulfate 90 mcg/actuation 2 puff INHALATION Q4H PRN #1 04/24/21 08/17/21 aerosol inhaler inhaler fluticasone propionate 220 2 puff INHALATION BID PRN #1 inh 07/26/21 08/17/21 mcg/actuation HFA aerosol inhaler aripiprazole 10 mg PO DAILY 08/17/21 08/17/21 aripiprazole lauroxil [Aristada] 662 mg IM QMONTH 08/17/21 08/17/21 lithium carbonate 300 mg PO QHS 08/17/21 08/17/21 mirtazapine 15 mg PO QHS 08/17/21 08/17/21 ondansetron 4 mg PO Q6H PRN 08/17/21 08/17/21 Previous Rx's Medication Instructions Recorded nebulizer accessories #1 each 08/17/19 ipratropium 0.5 mg-albuterol 3 mg 3 ml INHALATION Q4H PRN #90 ml 07/15/20 (2.5 mg base)/3 mL nebulization soln prochlorperazine maleate 10 mg 10 mg PO TID PRN #60 tab 12/19/20 tablet albuterol sulfate 90 mcg/actuation 2 puff INHALATION Q4H PRN #1 04/24/21 aerosol inhaler inhaler fluticasone propionate 220 2 puff INHALATION BID PRN #1 inh 07/26/21 mcg/actuation HFA aerosol inhaler Allergies Allergy/AdvReac Type Severity Reaction Status Date / Time peanut Allergy Intermediate Swelling/Ed Unverified 08/17/21 08:18 josy citalopram AdvReac Intermediate insomnia Verified 08/17/21 08:18 ultrasound gel Allergy Intermediate Itching Uncoded 08/17/21 08:18 General Stated Complaint: SOB CONOR: 3 Review of Systems All systems reviewed & are unremarkable except as noted in HPI and below PFSH Medical History Adjustment disorder with mixed anxiety and depressed mood per [facility] Mikayla cedillo Allergic rhinitis Alopecia (capitis) totalis Asthma Atopic dermatitis Contraceptive management Depression (01/24/15) 04/25 - 05/02/18 Inpatient [facility] (depression with suicidal ideation) [id number] transgender person Preferred name: Teodora He/Him pronouns 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 F/u echo in 5 years Severe major depression with psychotic features Urinary tract infection requiring hospitalization Surgical History Status post dilation and curettage Family History Mother Obstructive sleep apnea syndrome uses cpap hs Father Esophageal stricture Diabetes Sister Mental disorder Depression Brother Asthma Social History Smoking/Tobacco Use Status: Current-Occasional Tobacco Type: cigarettes Tobacco: How many years used: 1 Quit status: quit date established Smoking risk assessment performed?: Yes Alcohol Intake: former Drug use: Occasionally Substance use type: marijuana Details: few times a month; pt reports none on DOS 06/10/21 What type of physical activity do you participate in: walking Frequency: daily Seatbelt use: always Do you feel safe at home: Yes Do you feel safe in your relationship?: Yes Female Reproductive History Menstrual control method: progestin IUCD Exam Const General: cooperative and ill appearing HENMT Mouth: oral mucosae normal Eyes Pupils: PERRL Neck Other: No stridor Resp Effort & Inspection: normal respiratory effort Auscultation: clear to auscultation bilaterally Cardio Rate: tachycardic Rhythm: regular rhythm Other: No murmur GI Other: Nontender abdominal exam Skin General skin exam: no rashes or lesions noted Neuro General: patient alert and patient oriented x3 Extrem Other: No calf swelling or tenderness Course Vital Signs Vital signs: Vital Signs Temperature 36.7 C 08/17/21 07:55 Pulse 108 H 08/17/21 07:55 Respiratory Rate 24 08/17/21 07:55 Blood Pressure 121/66 08/17/21 07:55 Pulse Oximetry 89 L 08/17/21 07:55 Temperature 36.7 C 08/17/21 07:55 Temperature Source Temporal Artery Scan 08/17/21 07:55 Pulse 88 08/17/21 08:06 Respiratory Rate 27 H 08/17/21 08:08 Respiratory Effort Labored 08/17/21 08:08 Respiratory Depth Shallow 08/17/21 08:08 Respiratory Pattern Tachypnea 08/17/21 08:08 Blood Pressure 121/66 08/17/21 07:55 Blood Pressure Position Sitting 08/17/21 07:55 Pulse Oximetry 99 08/17/21 08:06 Oxygen Delivery Method Room Air 08/17/21 07:55 Oxygen Flow Rate 0 08/17/21 07:55 Pain Level 5 08/17/21 08:08 Lab/Test Results Lab/Test Results: Laboratory Tests Range/Units 08/17/21 08/17/21 08/17/21 08:38 08:38 08:38 WBC (4.4-10.8) 10^3/uL 12.22 H RBC (3.93-5.22) 10^6/uL 4.92 Hgb (11.2-15.7) g/dL 13.9 Hct (36.0-46.0) % 43.6 MCV (80-95) fL 88.6 MCH (27.0-33.0) pg 28.3 MCHC (32.0-36.0) % 31.9 L RDW (11.7-14.6) % 12.6 Plt Count (130-400) 10^3/uL 303 MPV (8.0-11.0) fL 11.2 H Immature Gran % 0.2 Neutrophils % 67.6 Lymphocytes % 18.0 Monocytes % 4.7 Eosinophils % 8.8 Basophils % 0.7 Nucleated RBC % % 0 Absolute Neutrophils (1.2-6.7) 10^3/uL 8.26 H Absolute Lymphocytes (1.2-3.4) 10^3/uL 2.20 Absolute Monocytes (0.1-0.8) 10^3/uL 0.57 Absolute Eosinophils (0.0-0.7) 10^3/uL 1.08 H Absolute Basophils (0.0-0.2) 10^3/uL 0.09 Sodium Cancelled Potassium Cancelled Chloride Cancelled Carbon Dioxide Cancelled Anion Gap Cancelled BUN Cancelled Creatinine Cancelled Estimated GFR/1.73 m2 Cancelled Glucose Cancelled Calcium Cancelled Magnesium Cancelled Total Bilirubin Cancelled AST Cancelled ALT Cancelled Alkaline Phosphatase Cancelled Troponin I Cancelled Total Protein Cancelled Albumin Cancelled Serum HCG, Qual Cancelled Critical Care Time Critical Care Time Critical Care Time: Yes Total Critical Care Time: 60 Attestation: Nebulizer treatments, oxygen supplementation, IV steroid administration, diagnostic laboratory evaluation, telemetry monitoring, admission to the
[2021-08-17 09:32] LABS: HCG Qual (Serum) Negative
[2021-08-17 09:43] LABS: ALT 42 U/L (14-59); AST 22 U/L (15-37); Alkaline Phosphatase 73 U/L (46-116); Anion Gap 11.1 mmol/L (3-11); BUN 15 mg/dL (7-18); Bilirubin, Total 0.5 mg/dL (0.2-1.0); CO2 21.9 mmol/L (21.0-32.0); CREATININE 0.6 mg/dL (0.55-1.02); Calcium 7.1 mg/dL (8.5-10.1); Chloride 112 mmol/L (98-107); Glucose 93 mg/dL (74-106); Magnesium 1.6 mg/dL (1.8-2.4); Sodium 145 mmol/L (136-145)
--- NOTE | 2021-08-17 09:45 | RT.EKG_ITS ---
APPROVED REPORT Exam: Resting ECG Reason for Exam: hypokalemia Patient Location: E HR:94 bpm ECG Measurements Heart Rate 94 AXIS OH 155 P 62 QRSd 106 QRS -7 QT 358 T -85 QTc 448 Conclusion Sinus rhythm...normal P axis, V-rate 60- 99 Abnormal T, consider ischemia, diffuse leads...T <-0.20mV, ant/lat/inf
[2021-08-17 09:46] LABS: Potassium 2.8 mmol/L (3.5-5.1)
[2021-08-17 09:47] LABS: Troponin I < 0.05 ng/mL (<0.06)
[2021-08-17 10:27] LABS: Source Nasal/Nares
[2021-08-17] MEDS: Potassium Chloride 20 MEQ TABCR 40 MEQ PO (10:33)
[2021-08-17 11:06] LABS: COVID-19 PCR Negative (Negative)
[2021-08-17] MEDS: Doxycycline Hyclate 100 MG CAP PO (11:15)
[2021-08-17] MEDS: cefTRIAXone 2 GM/50 ML BAG IVPB (11:16)
[2021-08-17 11:17] LABS: Lactate 3.9 mmol/L (0.6-1.4)
[2021-08-17] MEDS: Normal Saline 1,000 ML 2000 ML IV (12:06)
[2021-08-17] MEDS: MAGNESIUM SULFATE 1 GM/100 ML BAG IVPB (12:07)
[2021-08-17 12:18] LABS: Troponin I < 0.05 ng/mL (<0.06)
[2021-08-17] MEDS: Ondansetron 4 MG/2 ML VIAL (12:57)
[2021-08-17 14:27] LABS: Lactate 5.4 mmol/L (0.6-1.4)
[2021-08-17 15:10] LABS: BE -9 mmol/L (-2-3); HCO3 17 mmol/L (22-26); pCO2 30 mmHg (35-45); pH 7.35 (7.35-7.45); pO2 45 mmHg (80-105); sO2 80 % (95-98); tCO2 15 mmol/L (23-27)
[2021-08-17 15:17] LABS: Site Left Radial
[2021-08-17 15:22] LABS: FIO2 21 %
--- NOTE | 2021-08-17 15:36 | HPE_ITS ---
Date of service: 08/17/21 Time of Service: 15:36 Assessment and Plan Assessment and plan (1) Community acquired pneumonia: Status: Acute Assessment and plan: bilateral infiltrates by CT scan, no PE. received ceftriaxone and doxycycline in ED but since just completing doxycycline will change class and start levaquin day 1/5. she will be monitored on telemetry for QT interval. scheduled duoneb, albuterol prn cultures pending. covid negative (2) Asthma: Status: Chronic Assessment and plan: continue steroids and inhalers. (3) Hypokalemia: Status: Acute Assessment and plan: will replete mag and potassium, likely d/t excessive albuterol use. follow closely (4) Hypocalcemia: Status: Acute Assessment and plan: calcium correction to 8.0, will replete magnesium and recheck. add vitamin D level. (5) Depression: Status: Chronic Assessment and plan: stable, continue home medication (6) Discharge planning issues: Status: Acute Assessment and plan: anticipate discharge to home with no services. discussed with DR Avendaño History of Present Illness History of Present Illness Chief Complaint: shortness of breath Narrative: patient presents with ongoing shortness of breath and cough. just finished a course of doxycycline and prednisone with no improvement. no fevers. presented to the ED tachypneic and hypoxic. improved after updrafts and IV steroids. started on ceftriaxone and doxycycline in ED Review of Systems All systems reviewed & are unremarkable except as noted in HPI and below Cardiovascular Cardiovascular: Reports dyspnea and Reports dyspnea on exertion Respiratory Respiratory: Reports cough, Reports dyspnea and Reports dyspnea on exertion PFSH All Active Problems (Updated 08/17/21 @ 16:13 by Amberly Villalobos NP) Discharge planning issues (Acute) Hypocalcemia (Acute) Hypokalemia (Acute) Community acquired pneumonia (Acute) Bronchitis (Acute) Severe major depression with psychotic features (Acute) Pain, dental (Acute) Contraceptive management (Acute) Status post dilation and curettage (Acute) Asthma (Chronic) Migraine headache (Chronic) Syncopal episodes (Chronic) Eczema (Chronic 06/24/14) Suicidal ideation (Acute) Panic disorder (Acute) 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) Asthma exacerbation (Acute) Feels feverish (Acute) Diarrhea (Acute) Nausea & vomiting (Acute) Migraine headache with aura (Acute) Migraine headache without aura (Acute) Cephalgia (Acute) Kidney stones (Chronic) Pulmonary valve prolapse (Chronic 09/13/14) Depression (Chronic 01/24/15) Adjustment disorder with mixed anxiety and depressed mood (Chronic) Major depressive disorder, recurrent episode, severe (Chronic) Medical History Adjustment disorder with mixed anxiety and depressed mood per [facility] Mikayla cedillo Allergic rhinitis Alopecia (capitis) totalis Asthma Atopic dermatitis Contraceptive management Depression (01/24/15) 04/25 - 05/02/18 Inpatient [facility] (depression with suicidal ideation) [id number] transgender person Preferred name: Teodora He/Him pronouns 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 F/u echo in 5 years Severe major depression with psychotic features Urinary tract infection requiring hospitalization Surgical History Status post dilation and curettage Family History Mother Obstructive sleep apnea syndrome uses cpap hs Father Esophageal stricture Diabetes Sister Mental disorder Depression Brother Asthma Social History Smoking/Tobacco Use Status: Current-Occasional Tobacco Type: cigarettes Tobacco: How many years used: 1 Quit status: quit date established Smoking risk assessment performed?: Yes Alcohol Intake: former Drug use: Occasionally Substance use type: marijuana Details: few times a month; pt reports none on DOS 06/10/21 What type of physical activity do you participate in: walking Frequency: daily Seatbelt use: always Do you feel safe at home: Yes Do you feel safe in your relationship?: Yes Female Reproductive History Menstrual control method: progestin IUCD Meds Allergies and Home Medications Allergies Allergy/AdvReac Type Severity Reaction Status Date / Time peanut Allergy Intermediate Swelling/Ed Unverified 08/17/21 08:18 josy citalopram AdvReac Intermediate insomnia Verified 08/17/21 08:18 ultrasound gel Allergy Intermediate Itching Uncoded 08/17/21 08:18 Home Medications Medication Instructions Recorded Confirmed Type nebulizer accessories #1 each 08/17/19 06/10/21 Rx ipratropium 0.5 mg-albuterol 3 mg 3 ml INHALATION Q4H PRN #90 ml 07/15/20 08/17/21 Rx (2.5 mg base)/3 mL nebulization soln hydroxyzine HCl 10 mg tablet 10 - 30 mg PO DAILY tab 08/03/20 08/17/21 History fluoxetine 20 mg capsule 20 mg PO DAILY 11/07/20 08/17/21 History prochlorperazine maleate 10 mg 10 mg PO TID PRN #60 tab 12/19/20 08/17/21 Rx tablet albuterol sulfate 90 mcg/actuation 2 puff INHALATION Q4H PRN #1 04/24/21 08/17/21 Rx aerosol inhaler inhaler fluticasone propionate 220 2 puff INHALATION BID PRN #1 inh 07/26/21 08/17/21 Rx mcg/actuation HFA aerosol inhaler aripiprazole 10 mg PO DAILY 08/17/21 08/17/21 History aripiprazole lauroxil [Aristada] 662 mg IM QMONTH 08/17/21 08/17/21 History lithium carbonate 300 mg PO QHS 08/17/21 08/17/21 History mirtazapine 15 mg PO QHS 08/17/21 08/17/21 History ondansetron 4 mg PO Q6H PRN 08/17/21 08/17/21 History Exam Const General: cooperative, comfortable and acute distress mild and respiratory Nutritional Appearance: average body habitus Orientation: alert, awake and oriented x3 HENMT Head: normal to inspection, normocephalic and atraumatic Resp Effort & Inspection: cough Quality of cough: wet Auscultation: wheezes expiratory wheezes Cardio Rate: regular rate Rhythm: regular rhythm GI Inspection: normal to inspection Palpation: soft Neuro General: patient alert, patient awake and patient oriented x3 Cognition: normal cognition Speech: speech normal Extrem General: normal to inspection, full ROM and no pedal edema Results Labs Result diagrams: 08/17/21 08:38 08/17/21 09:02 Labs: Laboratory Results - last 24 hr 08/17/21 08/17/21 08/17/21 08:38 08:38 08:38 WBC 12.22 H RBC 4.92 Hgb 13.9 Hct 43.6 MCV 88.6 MCH 28.3 MCHC 31.9 L RDW 12.6 Plt Count 303 MPV 11.2 H Immature Gran % 0.2 Neutrophils % 67.6 Lymphocytes % 18.0 Monocytes % 4.7 Eosinophils % 8.8 Basophils % 0.7 Nucleated RBC % 0 Absolute Neutrophils 8.26 H Absolute Lymphocytes 2.20 Absolute Monocytes 0.57 Absolute Eosinophils 1.08 H Absolute Basophils 0.09 ABG Sample Site ABG pH ABG pCO2 ABG pO2 ABG HCO3 ABG Total CO2 ABG O2 Saturation ABG Base Excess VBG Lactate FiO2 Sodium Cancelled Potassium Cancelled Chloride Cancelled Carbon Dioxide Cancelled Anion Gap Cancelled BUN Cancelled Creatinine Cancelled Estimated GFR/1.73 m2 Cancelled Glucose Cancelled Calcium Cancelled Magnesium Cancelled Total Bilirubin Cancelled AST Cancelled ALT Cancelled Alkaline Phosphatase Cancelled Troponin I Cancelled Total Protein Cancelled Albumin Cancelled Serum HCG, Qual Cancelled COVID-19 Source SARS-CoV-2 (PCR) 08/17/21 08/17/21 08/17/21 09:02 09:02 10:23 WBC RBC Hgb Hct MCV MCH MCHC RDW Plt Count MPV Immature Gran % Neutrophils % Lymphocytes % Monocytes % Eosinophils % Basophils % Nucleated RBC % Absolute Neutrophils Absolute Lymphocytes Absolute Monocytes Absolute Eosinophils Absolute Basophils ABG Sample Site ABG pH ABG pCO2 ABG pO2 ABG HCO3 ABG Total CO2 ABG O2 Saturation ABG Base Excess VBG Lactate FiO2 Sodium 145 Potassium 2.8 L* Chloride 112 H Carbon Dioxide 21.9 Anion Gap 11.1 H BUN 15 Creatinine 0.6 Estimated GFR/1.73 m2 >= 60.00 Glucose 93 Calcium 7.1 L Magnesium 1.6 L Total Bilirubin 0.5 AST 22 ALT 42 Alkaline Phosphatase 73 Troponin I < 0.05 Total Protein 6.0 L Albumin 3.0 L Serum HCG, Qual Negative COVID-19 Source Nasal/Nares SARS-CoV-2 (PCR) Negative 08/17/21 08/17/21 08/17/21 11:10 11:50 14:21 WBC RBC Hgb Hct MCV MCH MCHC RDW Plt Count MPV Immature Gran % Neutrophils % Lymphocytes % Monocytes % Eosinophils % Basophils % Nucleated RBC % Absolute Neutrophils Absolute Lymphocytes Absolute Monocytes Absolute Eosinophils Absolute Basophils ABG Sample Site ABG pH ABG pCO2 ABG pO2 ABG HCO3 ABG Total CO2 ABG O2 Saturation ABG Base Excess VBG Lactate 3.9 H* 5.4 H* FiO2 Sodium Potassium Chloride Carbon Dioxide Anion Gap BUN Creatinine Estimated GFR/1.73 m2 Glucose Calcium Magnesium Total Bilirubin AST ALT Alkaline Phosphatase Troponin I < 0.05 Total Protein Albumin Serum HCG, Qual COVID-19 Source SARS-CoV-2 (PCR) 08/17/21 15:06 WBC RBC Hgb Hct MCV MCH MCHC RDW Plt Count MPV Immature Gran % Neutrophils % Lymphocytes % Monocytes % Eosinophils % Basophils % Nucleated RBC % Absolute Neutrophils Absolute Lymphocytes Absolute Monocytes Absolute Eosinophils Absolute Basophils ABG Sample Site Left Radial ABG pH 7.35 ABG pCO2 30 L ABG pO2 45 L ABG HCO3 17 L ABG Total CO2 15 L ABG O2 Saturation 80 L ABG Base Excess -9 L VBG Lactate FiO2 21 Sodium Potassium Chloride Carbon Dioxide Anion Gap BUN Creatinine Estimated GFR/1.73 m2 Glucose Calcium Magnesium Total Bilirubin AST ALT Alkaline Phosphatase Troponin I Total Protein Albumin Serum HCG, Qual COVID-19 Source SARS-CoV-2 (PCR) Last Vital Signs Temp 36.7 C 08/17/21 07:55 Pulse 84 08/17/21 15:00 Resp 27 H 08/17/21 15:01 BP 101/53 L 08/17/21 15:00 Pulse Ox 95 08/17/21 15:01
[2021-08-17] MEDS: Albuterol/Ipratropium 3 ML UPD VIAL IH ×2 (17:33→19:55)
[2021-08-17 17:47] LABS: Vitamin D 25 Total 34.6 ng/mL (30-100)
[2021-08-17 18:02] LABS: Lithium < 0.2 mmol/l (0.6-1.2)
[2021-08-17] MEDS: levoFLOXacin 500 MG, levoFLOXacin 250 MG 750 MG PO (18:03)
[2021-08-17] MEDS: hydrOXYzine HCL 10 MG TAB 30 MG PO (21:14)
[2021-08-17] MEDS: Mirtazapine 15 MG TAB PO (21:15)
[2021-08-17] MEDS: Lithium Carbonate 300 MG CAP PO (21:15)
[2021-08-18] VITALS (9 sets, daily range): BP systolic 100–112; BP diastolic 60–62; PULSE 55–87; RESP 2–19; TEMP 36.7–37.4; O2SAT 95–96
[2021-08-18 07:03] LABS: Abs Immature Grans 0.07 10^3/uL (0.0-0.06); Absolute Basophil Count 0.01 10^3/uL (0.0-0.2); Absolute Eosinophil Count 0.03 10^3/uL (0.0-0.7); Absolute Lymphocyte Count 1.56 10^3/uL (1.2-3.4); Absolute Monocyte Count 0.92 10^3/uL (0.1-0.8); Basophils % 0.1; Eosinophils % 0.2; HCT 36.1 % (36.0-46.0); HGB 11.6 g/dL (11.2-15.7); Immature Grans % 0.5; Lymphocytes % 10.7; MCH 28.4 pg (27.0-33.0); MCHC 32.1 % (32.0-36.0); MCV 88.5 fL (80-95); MPV 10.6 fL (8.0-11.0); Monocytes % 6.3; Neutrophils % 82.2; Nucleated RBC 0 %; Platelet Count 324 10^3/uL (130-400); RBC 4.08 10^6/uL (3.93-5.22); RDW 12.9 % (11.7-14.6); RDW-SD 41.8 fL; WBC 14.58 10^3/uL (4.4-10.8)
[2021-08-18 07:09] LABS: Absolute Neutrophil Count 11.98 10^3/uL (1.2-6.7)
[2021-08-18 07:19] LABS: Anion Gap 9.2 mmol/L (3-11); BUN 11 mg/dL (7-18); CO2 23.8 mmol/L (21.0-32.0); CREATININE 0.7 mg/dL (0.55-1.02); Calcium 8.9 mg/dL (8.5-10.1); Chloride 107 mmol/L (98-107); Glucose 103 mg/dL (74-106); Sodium 140 mmol/L (136-145)
[2021-08-18 07:23] LABS: PHOSPHORUS 4.2 mg/dL (2.6-4.7)
[2021-08-18] MEDS: FLUoxetine 20 MG CAP PO (08:30)
[2021-08-18] MEDS: ARIPiprazole 5 MG TAB 10 MG PO (08:30)
[2021-08-18] MEDS: Albuterol/Ipratropium 3 ML UPD VIAL IH ×3 (08:30→16:05)
[2021-08-18] MEDS: levoFLOXacin 500 MG, levoFLOXacin 250 MG 750 MG PO (08:31)
--- NOTE | 2021-08-18 08:54 | PDOC.CMIN ---
- If Service Date Differs Date of service: 08/18/21 Time of Service: 08:54 Care Management Initial Assess REASON FOR HOSPITALIZATION:: Hypoxic respiratory failure PAST MEDICAL HISTORY/PAST SURGICAL HISTORY:: Adjustment disorder with mixed anxiety and depressed mood. per [facility] Mikayla cedillo. Allergic rhinitis. Alopecia (capitis) totalis. Asthma. Atopic dermatitis. Contraceptive management. Depression (01/24/15). 04/25 - 05/02/18 Inpatient [facility] (depression with suicidal ideation). [id number] transgender person. Preferred name: Teodora. He/Him pronouns. History of tooth development disorder. Pt reports front canine; anesthesia given to lower tooth. Kidney stones. Major depressive disorder, recurrent episode, severe. per [facility] Mikayla cedillo. Pulmonary valve prolapse (09/13/14). cardiology eval 12/22. F/u echo in 5 years. Severe major depression with psychotic features. Urinary tract infection. requiring hospitalization. Surgical History . Status post dilation and curettage. Family History . Mother. Obstructive sleep apnea syndrome. uses cpap hs. Father. Esophageal stricture. Diabetes. Sister. Mental disorder. Depression. Brother. Asthma PREVIOUS FUNCTIONAL STATUS/SOCIAL/FAMILY SUPPORTS:: Gonzalo resides in [facility] and is independent at baseline in the community. CURRENT FUNCTIONAL STATUS:: Gonzalo is prepared for discharge, no concerns shared at this time. ADVANCE DIRECTIVES:: None on file at [facility]. Has patient been provided with info about the portal/API?: Yes Did the patient sign up for the portal?: Yes (Previously) CODE STATUS:: Full Code INSURANCE COVERAGE / FINANCIAL ISSUES:: Medicaid CURRENT HOME/COMMUNITY SERVICES/EQUIPMENT:: [facility] PRIMARY CARE PHYSICIAN:: Eric Singer POTENTIAL DISCHARGE NEEDS:: Follow up appointments. PATIENT/FAMILY EDUCATION NEEDS:: Review discharge instructions, discuss Ask Me Three. ANTICIPATED BARRIERS TO DISCHARGE:: None identified. TRANSPORTATION:: Via private vehicle with his mother. PLAN:: Gonzalo will return home when ready per MD. He will follow up with his PCP and plan of care as as prescribed. He will transport via private vehicle with his mother.
[2021-08-18] MEDS: methylPREDNISolone SUCC 125 MG VIAL 60 MG IVP ×2 (10:12→13:07)
[2021-08-18] MEDS: Omeprazole 20 MG CAPCR PO (10:12)
[2021-08-18 10:38] LABS: Parathyroid Hormone,Intact 39 pg/mL (19-88)
[2021-08-18] MEDS: MAGNESIUM SULFATE 2 GM/50 ML BAG IVPB (11:14)
--- NOTE | 2021-08-18 14:56 | W.PM.DS.N ---
Date of service: 08/18/21 Time of Service: 14:57 DS: Diagnosis Discharge Diagnosis (1) Community acquired pneumonia: Start date: 08/18/21 Start time: 14:57 Status: Acute Asessment and Plan: This appears to be more of an asthma exacerbation then pneumonia. CT of chest reveals : IMPRESSION: 1. No evidence of obvious acute pulmonary emboli. No evidence of pulmonary infarction. 2. However, there is some infiltrate in the left upper lobe adjacent to the aortic arch and a smaller amount of infiltrate the right lower lobe. 3. No pleural effusions But patient has been on treatment therefore will continue with levaquin x 7 day course (2) Asthma: Start date: 08/18/21 Start time: 15:22 Status: Chronic Asessment and Plan: Doing much better. Moving air. Lungs clear. Patient feels well and would like to go home. Patient would benefit from steroid burst, allergy pill, will give zyrtec, xoponex in addition to albuterol for updraft, Incentive spirometer to use at home, mucinex and referral to pulmonology. He is also interested in smoking cessation will order patches. (3) Hypokalemia: Start date: 08/18/21 Start time: 15:30 Status: Resolved Asessment and Plan: resolved. (4) Hypocalcemia: Start date: 08/18/21 Start time: 15:30 Status: Resolved Asessment and Plan: Resolved. (5) Depression: Start date: 08/18/21 Start time: 15:31 Status: Chronic Asessment and Plan: appears to be in good spirits. continue home medications above discussed with Dr. Avendaño Discharge Plan Disposition Patient Disposition: HOME Condition: Improving Discharge Details Reason For Visit: Hypoxic Resp Failure Admit Date/Time: 08/17/21 15:37 Admit Provider: Elaine Avendaño Attending Provider: Elaine Avendaño Primary Care Provider: Eric Singer [facility] Hospital Course: 26 y.o patient with history of depression, migraine chirinos. was admitted to [facility] with ongoing shortness of breath and cough. Just finished a course of doxycycline and prednisone with no improvement. no fevers. presented to the ED tachypneic and hypoxic. improved after updrafts and IV steroids. started on ceftriaxone and doxycycline in ED. Chest CT in the ED revealed no PE, some infiltrate in the left upper lobe and smaller amount of infiltrate in right upper lobe. She received mag sulfate today with updrafts and is feeling great. Lungs are clear, RA sat is 95%. She would like to be discharged home. She is going home on levaquin x 7 days. Zyrtec, nicotine patches, IS, updraft with albuterol and xoponex steroid burst, and referral to Dr. Little. Home Meds and New Rx's Prescriptions: New levofloxacin 750 mg Tablet 750 mg PO QAM Qty: 7 RF: 0 omeprazole 20 mg Capsule,Delayed Release(Dr/Ec) 20 mg PO DAILY@0730 Qty: 30 RF: 0 prednisone 20 mg tablet 40 mg PO DAILY Qty: 14 RF: 0 nicotine 14 mg/24 hr patch 24 hour 1 patch transdermal DAILY Qty: 14 RF: 0 cetirizine [Zyrtec] 10 mg tablet 10 mg PO DAILY Qty: 30 RF: 0 Bio-K plus 50 billion cell capsule,delayed release(DR/EC) 1 cap PO DAILY Qty: 30 RF: 0 Mucinex 1,200 mg tablet extended release 12hr 1,200 mg PO BID Qty: 20 RF: 0 Continued ipratropium-albuterol 0.5 mg-3 mg(2.5 mg base)/3 mL solution for nebulization 3 ml Inhalation Q4H PRN (Reason: shortness of breath or wheezing) Qty: 90 RF: 3 hydroxyzine HCl 10 mg tablet 10 - 30 mg PO DAILY RF: 0 fluoxetine [Prozac] 20 mg capsule 20 mg PO DAILY RF: 0 prochlorperazine maleate [Compazine] 10 mg tablet 10 mg PO TID PRN (Reason: nausea and vomiting) Qty: 60 RF: 5 albuterol sulfate [ProAir HFA] 90 mcg/actuation HFA aerosol inhaler 2 puff Inhalation Q4H PRN Qty: 1 RF: 5 Flovent HFA 220 mcg/actuation HFA aerosol inhaler 2 puff Inhalation BID PRN (Reason: wheezing, cough, sob) Qty: 1 RF: 5 Aristada 662 mg/2.4 mL suspension,extended rel syring 662 mg IM QMONTH RF: 0 mirtazapine 15 mg Tablet 15 mg PO QHS RF: 0 lithium carbonate 300 mg Tablet 300 mg PO QHS RF: 0 aripiprazole 10 mg Tablet 10 mg PO DAILY RF: 0 ondansetron 4 mg tablet,disintegrating 4 mg PO Q6H PRNRF: 0 No Action (DME) nebulizer accessories Kit See Rx Instructions .ROUTE .MEDSUPPLY Qty: 1 RF: 0 Discharge Instructions Instructions: Asthma (GEN), Community Acquired Pneumonia (DC) Additional Instructions: F/u with PCP in 1 week Take all medications as prescribed Because of lithium only take zyrtec Will give antibiotic of levaquin x 7 days with probiotic Do not smoke if you have a nicotine patch on. Activity:: Activity as Tolerated Equipment/Supplies:: No Equipment Needed Diet:: As Tolerated Discharge Orders Discharge Orders: Discharge Order (Routine); Ordered 08/18/21 Ordered By: Maribeth Galvan DS: Summary Time Spent with Patient providing and/or coordinating discharge services: Less than 30 minutes Status at Discharge Functional status at discharge: independent ambulation Overall status at discharge: patient is back to baseline Mental Status: mental status grossly normal Speech and Movement: speech and movement normal Mood: congruent mood Affect: normal affect Exam Const General: cooperative, comfortable and acute distress mild and respiratory Nutritional Appearance: average body habitus Orientation: alert, awake and oriented x3 HENMT Head: normal to inspection, normocephalic and atraumatic Resp Effort & Inspection: normal respiratory effort and able to speak in complete sentences Auscultation: clear to auscultation bilaterally Cardio Rate: regular rate Rhythm: regular rhythm GI Inspection: normal to inspection Palpation: soft Neuro General: patient alert, patient awake and patient oriented x3 Cognition: normal cognition Speech: speech normal Extrem General: normal to inspection, full ROM and no pedal edema Psych Mental Status: mental status grossly normal Speech and Movement: speech and movement normal Mood: congruent mood Affect: normal affect DS: Data Vitals/I&O Vitals and I&O: Vital Signs Temperature 37.4 C 08/18/21 09:35 Temperature Source Tympanic 08/18/21 09:35 Pulse 73 08/18/21 09:35 Pulse Rhythm Regular 08/18/21 09:04 Pulse 84 08/17/21 16:01 Respiratory Rate 18 08/18/21 09:35 Respiratory Effort Non-Labored 08/18/21 09:04 Respiratory Depth Normal 08/18/21 09:04 Respiratory Pattern Normal 08/18/21 09:04 Blood Pressure 100/60 08/18/21 09:35 Blood Pressure Mean 67 08/17/21 16:00 Blood Pressure Position Sitting 08/17/21 07:55 Pulse Oximetry 95 08/18/21 09:35 Oxygen Delivery Method Room Air 08/18/21 09:35 Oxygen Flow Rate 0 08/18/21 09:35 Pain Level 0 08/18/21 09:35 Intake & Output 08/17/21 08/18/21 08/18/21 23:59 11:59 23:59 Intake Total 2100 / 2150 300 / 300 Output Total 600 / 600 Balance 2100 / 2150 -300 / -300 Weight 63.049 kg Intake: IV 2100 / 2150 Oral 300 / 300 Output: Urine 600 / 600 Other: Urine Color Yellow Urine Appearance Clear Urine Odor Normal Comment in the toilet Voiding Methods Toilet Data Completed and Pending Completed studies during hospitalization [Text1]: : 1995Age: 26 Exam(s) a CT:CT chest PE CTA Exam(s) CT CHEST PE CTA EXAM: CT CHEST PE CTA CLINICAL HISTORY: chest pain, recurrent sob, on testosterone. TECHNIQUE: Imaging Protocol: CT angiography of the chest was performed using pulmonary embolus protocol. Multi planar reconstructions were performed. CONTRAST MATERIAL: Intravenous: Omnipaque 350 Contrast volume: 100 cc COMPARISON: CT CT ABDOMEN PELVIS W from 03/04/2020 FINDINGS: CHEST: PULMONARY ARTERIES: Somewhat less than optimal injection timing. There are no obvious intraluminal filling defects to suggest acute pulmonary emboli. LUNGS: There is some infiltrate in the left upper lobe adjacent to the aortic arch. Also mild infiltrate in the right infrahilar region. No focal findings in trachea and mainstem bronchi.. There are no pleural effusions. MEDIASTINUM: There is no hilar nor mediastinal adenopathy. Visualized thyroid unremarkable. CARDIAC: Heart size is upper normal. There is no pericardial effusion.Caliber of the thoracic aorta is within normal limits. There is no significant shift of the interventricular septum. PARTIALLY VISUALIZED UPPERMOST ABDOMEN: No obvious findings OSSEOUS: No significant osseous lesions.. IMPRESSION: 1. No evidence of obvious acute pulmonary emboli. No evidence of pulmonary infarction. 2. However, there is some infiltrate in the left upper lobe adjacent to the aortic arch and a smaller amount of infiltrate the right lower lobe. 3. No pleural effusions Labs on day of discharge: Labs from last 24 hours 08/18/21 08/18/21 08/18/21 06:30 06:30 06:30 WBC 14.58 H RBC 4.08 Hgb 11.6 D Hct 36.1 MCV 88.5 MCH 28.4 MCHC 32.1 RDW 12.9 Plt Count 324 MPV 10.6 Immature Gran % 0.5 Neutrophils % 82.2 Lymphocytes % 10.7 Monocytes % 6.3 Eosinophils % 0.2 Basophils % 0.1 Nucleated RBC % 0 Absolute Neutrophils 11.98 H Absolute Lymphocytes 1.56 Absolute Monocytes 0.92 H Absolute Eosinophils 0.03 Absolute Basophils 0.01 ABG Sample Site ABG pH ABG pCO2 ABG pO2 ABG HCO3 ABG Total CO2 ABG O2 Saturation ABG Base Excess FiO2 Sodium 140 Potassium 4.0 D Chloride 107 Carbon Dioxide 23.8 Anion Gap 9.2 BUN 11 Creatinine 0.7 Estimated GFR/1.73 m2 >= 60.00 Glucose 103 Calcium 8.9 Phosphorus 4.2 25-OH Vitamin D Total PTH Intact [place] 08/17/21 08/17/21 08/17/21 15:06 11:10 09:02 WBC RBC Hgb Hct MCV MCH MCHC RDW Plt Count MPV Immature Gran % Neutrophils % Lymphocytes % Monocytes % Eosinophils % Basophils % Nucleated RBC % Absolute Neutrophils Absolute Lymphocytes Absolute Monocytes Absolute Eosinophils Absolute Basophils ABG Sample Site Left Radial ABG pH 7.35 ABG pCO2 30 L ABG pO2 45 L ABG HCO3 17 L ABG Total CO2 15 L ABG O2 Saturation 80 L ABG Base Excess -9 L FiO2 21 Sodium Potassium Chloride Carbon Dioxide Anion Gap BUN Creatinine Estimated GFR/1.73 m2 Glucose Calcium Phosphorus 25-OH Vitamin D Total 34.6 PTH Intact [place] < 0.2 L 08/17/21 09:02 WBC RBC Hgb Hct MCV MCH MCHC RDW Plt Count MPV Immature Gran % Neutrophils % Lymphocytes % Monocytes % Eosinophils % Basophils % Nucleated RBC % Absolute Neutrophils Absolute Lymphocytes Absolute Monocytes Absolute Eosinophils Absolute Basophils ABG Sample Site ABG pH ABG pCO2 ABG pO2 ABG HCO3 ABG Total CO2 ABG O2 Saturation ABG Base Excess FiO2 Sodium Potassium Chloride Carbon Dioxide Anion Gap BUN Creatinine Estimated GFR/1.73 m2 Glucose Calcium Phosphorus 25-OH Vitamin D Total PTH Intact 39 [place] Preliminary micro results at discharge 08/17/21 11:10 Blood Culture - Preliminary Blood NO GROWTH 24 HOURS 08/17/21 11:10 Blood Culture - Preliminary Blood NO GROWTH 24 HOURS PFSH All Active Problems Hypomagnesemia (Acute) Discharge planning issues (Acute) Community acquired pneumonia (Acute) Bronchitis (Acute) Severe major depression with psychotic features (Acute) Pain, dental (Acute) Contraceptive management (Acute) Status post dilation and curettage (Acute) Asthma (Chronic) Migraine headache (Chronic) Syncopal episodes (Chronic) Eczema (Chronic 06/24/14) Suicidal ideation (Acute) Panic disorder (Acute) 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) Asthma exacerbation (Acute) Feels feverish (Acute) Diarrhea (Acute) Nausea & vomiting (Acute) Migraine headache with aura (Acute) Migraine headache without aura (Acute) Cephalgia (Acute) Kidney stones (Chronic) Pulmonary valve prolapse (Chronic 09/13/14) Depression (Chronic 01/24/15) Adjustment disorder with mixed anxiety and depressed mood (Chronic) Major depressive disorder, recurrent episode, severe (Chronic) Medical History Allergic rhinitis Alopecia (capitis) totalis Asthma Atopic dermatitis [id number] transgender person Preferred name: Teodora He/Him pronouns 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; anesthesia given to lower tooth Urinary tract infection requiring hospitalization Family History Mother Obstructive sleep apnea syndrome uses cpap hs Father Esophageal stricture Diabetes Sister Mental disorder Depression Brother Asthma Social History Smoking/Tobacco Use Status: Current-Occasional Tobacco Type: cigarettes Tobacco: How many years used: 1 Quit status: quit date established Smoking risk assessment performed?: Yes Alcohol Intake: former Drug use: Occasionally Substance use type: marijuana Details: few times a month; pt reports none on DOS 06/10/21 What type of physical activity do you participate in: walking Frequency: daily Seatbelt use: always Do you feel safe at home: Yes Do you feel safe in your relationship?: Yes Female Reproductive History Menstrual control method: progestin IUCD
== END 2021-08-18 16:44 | disposition home or self-care (01) ==
LOC: ER 16:38 → MS 17:01
PROVIDERS: Nurse Practitioner Acute Care; Admitting Provider Internal Medicine; Emergency Provider Physician Assistant; PCP Family Medicine; Visit Provider Internal Medicine
DX: J45.901 Unspecified asthma with (acute) exacerbation (principal); J18.9 Pneumonia, unspecified organism; E87.6 Hypokalemia; E83.51 Hypocalcemia; F32.3 Major depressive disorder, single episode, severe with psychotic features; K08.89 Other specified disorders of teeth and supporting structures; G43.909 Migraine, unspecified, not intractable, without status migrainosus; F41.0 Panic disorder [episodic paroxysmal anxiety]; I37.1 Nonrheumatic pulmonary valve insufficiency; F64.0 Transsexualism; Z20.822 Contact with and (suspected) exposure to COVID-19; F17.210 Nicotine dependence, cigarettes, uncomplicated
CPT/HCPCS: 36415; 71275; 80048; 80053; 82306; 82805; 87040; 87635; 93005; 94640; 96361; 96365; 96367; 96375; 99291; 36600; 80178; 83605; 83735; 83970; 84100; 84484; 84703; 85025; 93010; 99217; 99220; G0378; J2405; J2930; J3475; J3490; J7620

== ENCOUNTER 2021-08-19 17:17 | Emergency (ER) | payer MEDICAID, SELFPAY ==
[2021-08-19 17:26] VITALS: BP 127/77; PULSE 95; RESP 18; TEMP 36.1; O2SAT 98
[2021-08-19] MEDS: Albuterol/Ipratropium 3 ML UPD VIAL (17:40)
[2021-08-19 18:17] VITALS: BP 106/73; PULSE 94; TEMP 36.8; O2SAT 98
[2021-08-19] MEDS: Albuterol/Ipratropium 3 ML UPD VIAL UPD ×2 (19:59→20:23)
[2021-08-19 20:29] VITALS: RESP 4; RESP 8
[2021-08-19 20:31] VITALS: PULSE 90; TEMP 36.4; O2SAT 95
--- NOTE | 2021-08-19 20:48 | ED.GENADUL_ITS ---
Discharge Plan Disposition Patient Disposition: HOME Condition: Stable Discharge Details Clinical Impression: Acute bronchospasm, Asthma Primary Care Provider: Eric Singer ED Provider: Daphnie Carson Home Meds and New Rx's Prescriptions: New hydrocodone-homatropine [Hycodan] 5-1.5 mg/5 mL (5 mL) syrup 5 ml PO Q6H PRNQty: 200 RF: 0 Continued (DME) nebulizer accessories Kit See Rx Instructions .ROUTE .MEDSUPPLY Qty: 1 RF: 0 hydroxyzine HCl 10 mg tablet 10 - 30 mg PO DAILY RF: 0 fluoxetine [Prozac] 20 mg capsule 20 mg PO DAILY RF: 0 prochlorperazine maleate [Compazine] 10 mg tablet 10 mg PO TID PRN (Reason: nausea and vomiting) Qty: 60 RF: 5 albuterol sulfate [ProAir HFA] 90 mcg/actuation HFA aerosol inhaler 2 puff Inhalation Q4H PRN Qty: 1 RF: 5 Flovent HFA 220 mcg/actuation HFA aerosol inhaler 2 puff Inhalation BID PRN (Reason: wheezing, cough, sob) Qty: 1 RF: 5 ipratropium-albuterol 0.5 mg-3 mg(2.5 mg base)/3 mL solution for nebulization 3 ml inhalation QID PRN (Reason: wheezing) Qty: 90 RF: 1 codeine-guaifenesin 10-100 mg/5 mL liquid 10 ml PO Q6H PRN (Reason: severe cough) Qty: 100 RF: 1 Aristada 662 mg/2.4 mL suspension,extended rel syring 662 mg IM QMONTH RF: 0 mirtazapine 15 mg Tablet 15 mg PO QHS RF: 0 lithium carbonate 300 mg Tablet 300 mg PO QHS RF: 0 aripiprazole 10 mg Tablet 10 mg PO DAILY RF: 0 ondansetron 4 mg tablet,disintegrating 4 mg PO Q6H PRNRF: 0 levofloxacin 750 mg Tablet 750 mg PO QAM Qty: 7 RF: 0 omeprazole 20 mg Capsule,Delayed Release(Dr/Ec) 20 mg PO DAILY@0730 Qty: 30 RF: 0 prednisone 20 mg tablet 40 mg PO DAILY Qty: 14 RF: 0 nicotine 14 mg/24 hr patch 24 hour 1 patch transdermal DAILY Qty: 14 RF: 0 cetirizine [Zyrtec] 10 mg tablet 10 mg PO DAILY Qty: 30 RF: 0 Bio-K plus 50 billion cell capsule,delayed release(DR/EC) 1 cap PO DAILY Qty: 30 RF: 0 Mucinex 1,200 mg tablet extended release 12hr 1,200 mg PO BID Qty: 20 RF: 0 Discharge Instructions Instructions: Asthma (ED), Bronchospasm (ED) Additional Instructions: Use your DuoNeb every 4-6 hours Have hot tea with honey as frequently as you are able Continue to take your steroid as prescribed Humidifier in your room Return the Robitussin with codeine to the pharmacy and fill your new medication, this is an opiate and addictive, only use it as needed for cough Please return should you have new or worsening complaints Recheck with your doctor on Saturday Referrals: Eric Singer DO [Primary Care Provider] - Medical Decision Making Patient was recently hospitalized and discharged last evening. She appears to be in bronchospasm therefore I will initiate 3 DuoNeb and Lortab elixir in an attempt to accomplish symptoms After these interventions she is feeling marked improvement, no hypoxia noted Patient discharged home in stable condition with stable vitals She is given very low threshold to return should she have new or worsening complaints I reviewed her extensive evaluation and admission with CTA, antibiotic, and disposition from prior assessment No indication for chest x-ray at this time as patient was discharged yesterday from the hospital without a dramatic change in presentation with no hypoxia during this evaluation Medical Records Medical records reviewed: Yes I reviewed the patient's medical records. Lab Data Lab results reviewed: Yes I reviewed the patient's lab results. HPI General Mode of arrival: ambulatory . Date/Time Provider Initiated Documentation: 08/19/21 17:36 . Limitations to Documentation: no limitations . Information obtained by: patient . HPI Narrative: This 26-year-old female to male patient in transition presents with report of coughing and posttussive emesis. Denies any shortness of breath or chest pain. Denies any fever or chills. States that he is status post admission for pneumonia and was discharged last evening. Has taken his Robitussin with codeine just prior to arrival. Has taken DuoNeb every 4 hours today Took steroids today reportedly. Denies any chest pain or swelling. Denies any hemoptysis. Denies fever or chills. Denies chance of . Having difficulty taking antibiotics secondary to posttussive emesis. Related Data Home Medications Medication Instructions Recorded Confirmed nebulizer accessories #1 each 08/17/19 06/10/21 hydroxyzine HCl 10 mg tablet 10 - 30 mg PO DAILY tab 08/03/20 08/19/21 fluoxetine 20 mg capsule 20 mg PO DAILY 11/07/20 08/19/21 prochlorperazine maleate 10 mg 10 mg PO TID PRN #60 tab 12/19/20 08/19/21 tablet albuterol sulfate 90 mcg/actuation 2 puff INHALATION Q4H PRN #1 04/24/21 08/19/21 aerosol inhaler inhaler fluticasone propionate 220 2 puff INHALATION BID PRN #1 inh 07/26/21 08/19/21 mcg/actuation HFA aerosol inhaler Aristada 662 mg IM QMONTH 08/17/21 08/19/21 aripiprazole 10 mg PO DAILY 08/17/21 08/19/21 lithium carbonate 300 mg PO QHS 08/17/21 08/19/21 mirtazapine 15 mg PO QHS 08/17/21 08/19/21 ondansetron 4 mg PO Q6H PRN 08/17/21 08/19/21 Bio-K plus 1 cap PO DAILY #30 cap 08/18/21 08/19/21 Mucinex 1,200 mg PO BID #20 tab 08/18/21 08/19/21 cetirizine [Zyrtec] 10 mg PO DAILY #30 tab 08/18/21 08/19/21 levofloxacin 750 mg PO QAM #7 tab 08/18/21 08/19/21 nicotine 1 patch TRANSDERMAL DAILY #14 ea 08/18/21 08/19/21 omeprazole 20 mg PO DAILY@0730 #30 cap 08/18/21 08/19/21 prednisone 40 mg PO DAILY #14 tab 08/18/21 08/19/21 codeine 10 mg-guaifenesin 100 mg/5 10 ml PO Q6H PRN #100 ml 08/19/21 08/19/21 mL oral liquid hydrocodone-homatropine [Hycodan] 5 ml PO Q6H PRN #200 ml 08/19/21 ipratropium 0.5 mg-albuterol 3 mg 3 ml INHALATION QID PRN #90 ml 08/19/21 08/19/21 (2.5 mg base)/3 mL nebulization soln Previous Rx's Medication Instructions Recorded nebulizer accessories #1 each 08/17/19 prochlorperazine maleate 10 mg 10 mg PO TID PRN #60 tab 12/19/20 tablet albuterol sulfate 90 mcg/actuation 2 puff INHALATION Q4H PRN #1 04/24/21 aerosol inhaler inhaler fluticasone propionate 220 2 puff INHALATION BID PRN #1 inh 07/26/21 mcg/actuation HFA aerosol inhaler Bio-K plus 1 cap PO DAILY #30 cap 08/18/21 Mucinex 1,200 mg PO BID #20 tab 08/18/21 cetirizine [Zyrtec] 10 mg PO DAILY #30 tab 08/18/21 levofloxacin 750 mg PO QAM #7 tab 08/18/21 nicotine 1 patch TRANSDERMAL DAILY #14 ea 08/18/21 omeprazole 20 mg PO DAILY@0730 #30 cap 08/18/21 prednisone 40 mg PO DAILY #14 tab 08/18/21 codeine 10 mg-guaifenesin 100 mg/5 10 ml PO Q6H PRN #100 ml 08/19/21 mL oral liquid hydrocodone-homatropine [Hycodan] 5 ml PO Q6H PRN #200 ml 08/19/21 ipratropium 0.5 mg-albuterol 3 mg 3 ml INHALATION QID PRN #90 ml 08/19/21 (2.5 mg base)/3 mL nebulization soln Allergies Allergy/AdvReac Type Severity Reaction Status Date / Time peanut Allergy Intermediate Swelling/Ed Unverified 08/19/21 17:29 josy citalopram AdvReac Intermediate insomnia Verified 08/19/21 17:29 ultrasound gel Allergy Intermediate Itching Uncoded 08/19/21 17:29 General Stated Complaint: RespSymp CONOR: 3 Review of Systems All systems reviewed & are unremarkable except as noted in HPI and below PFSH All Active Problems (Updated 08/19/21 @ 20:54 by DALLAS Zhang) Hypomagnesemia (Acute) Acute bronchospasm (Acute) Asthma (Chronic) Discharge planning issues (Acute) Community acquired pneumonia (Acute) Bronchitis (Acute) Severe major depression with psychotic features (Acute) Pain, dental (Acute) Contraceptive management (Acute) Status post dilation and curettage (Acute) Asthma (Chronic) Migraine headache (Chronic) Syncopal episodes (Chronic) Eczema (Chronic 06/24/14) Suicidal ideation (Acute) Panic disorder (Acute) 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) Asthma exacerbation (Acute) Feels feverish (Acute) Diarrhea (Acute) Nausea & vomiting (Acute) Migraine headache with aura (Acute) Migraine headache without aura (Acute) Cephalgia (Acute) Kidney stones (Chronic) Pulmonary valve prolapse (Chronic 09/13/14) Depression (Chronic 01/24/15) Adjustment disorder with mixed anxiety and depressed mood (Chronic) Major depressive disorder, recurrent episode, severe (Chronic) Medical History Allergic rhinitis Alopecia (capitis) totalis Asthma Atopic dermatitis Lfsjfg-mg-qujo transgender person Preferred name: Teodora He/Him pronouns 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; anesthesia given to lower tooth Urinary tract infection requiring hospitalization Family History Mother Obstructive sleep apnea syndrome uses cpap hs Father Esophageal stricture Diabetes Sister Mental disorder Depression Brother Asthma Social History Smoking/Tobacco Use Status: Current-Occasional Tobacco Type: cigarettes Tobacco: How many years used: 1 Quit status: quit date established Smoking risk assessment performed?: Yes Alcohol Intake: former Drug use: Occasionally Substance use type: marijuana Details: few times a month; pt reports none on DOS 06/10/21 What type of physical activity do you participate in: walking Frequency: daily Seatbelt use: always Do you feel safe at home: Yes Do you feel safe in your relationship?: Yes Female Reproductive History Menstrual control method: progestin IUCD Exam Const General: cooperative and no acute distress Eyes Pupils: PERRL Neck Other: no stridor Chest Chest: normal inspection of the chest Resp Effort & Inspection: normal respiratory effort Other: Diminished with wheezing bilaterally Cardio Rate: regular rate Rhythm: regular rhythm Neuro General: patient alert and patient oriented x3 Cranial Nerves: CN's II-XI intact bilaterally Extrem Other: No calf swelling or tenderness appreciated Course Vital Signs Vital signs: Vital Signs Temperature 36.1 C L 08/19/21 17:26 Pulse 95 H 08/19/21 17:26 Respiratory Rate 18 08/19/21 17:26 Blood Pressure 127/77 08/19/21 17:26 Pulse Oximetry 98 08/19/21 17:26 Temperature 36.4 C L 08/19/21 20:31 Temperature Source Temporal Artery Scan 08/19/21 20:31 Pulse 90 08/19/21 20:31 Respiratory Rate 18 08/19/21 17:26 Respiratory Effort Non-Labored 08/19/21 17:31 Respiratory Depth Normal 08/19/21 17:31 Blood Pressure 106/73 08/19/21 18:17 Blood Pressure Position Sitting 08/19/21 17:26 Pulse Oximetry 95 08/19/21 20:31 Oxygen Delivery Method Room Air 08/19/21 20:31 Oxygen Flow Rate 0 08/19/21 20:31 Pain Level 5 08/19/21 17:26 Comment 08/19/21 18:17
[2021-08-19 20:53] VITALS: RESP 8
== END 2021-08-19 21:04 | disposition home or self-care (01) ==
PROVIDERS: Emergency Provider Physician Assistant; PCP Family Medicine
DX: J45.909 Unspecified asthma, uncomplicated (principal)
CPT/HCPCS: 94640; 99285; 99283; J3490; J7620

== ENCOUNTER 2021-11-22 22:01 | Emergency (ER) | payer MEDICAID, SELFPAY ==
[2021-11-22 22:05] VITALS: BP 121/77; PULSE 90; RESP 18; TEMP 37.1; O2SAT 98
--- NOTE | 2021-11-22 22:18 | ED.GENADUL_ITS ---
Discharge Plan Disposition Patient Disposition: HOME Condition: Improving Discharge Details Clinical Impression: Migraine headache without aura Primary Care Provider: Eric Singer ED Provider: Denisa Trujillo Home Meds and New Rx's Prescriptions: Continued (DME) nebulizer accessories Kit See Rx Instructions .ROUTE .MEDSUPPLY Qty: 1 0RF Rx Instructions: Please dispense tubing for nebulizer, and use as directed Advair HFA 230-21 mcg/actuation HFA aerosol inhaler 2 puff inhalation BID Qty: 12 6RF prenat.vits,rukhsana,eev-yfrv-aggde Tablet 1 tab PO DAILY 0RF hydroxyzine HCl 10 mg tablet 10 - 30 mg PO DAILY 0RF Rx Instructions: TAKE 1 TO 3 TABLETS BY MOUTH DAILY NEEDED FOR ANXIETY fluoxetine [Prozac] 20 mg capsule 20 mg PO DAILY 0RF prochlorperazine maleate [Compazine] 10 mg tablet 10 mg PO TID PRN (Reason: nausea and vomiting) Qty: 60 5RF albuterol sulfate [ProAir HFA] 90 mcg/actuation HFA aerosol inhaler 2 puff Inhalation Q4H PRN Qty: 1 5RF ipratropium-albuterol 0.5 mg-3 mg(2.5 mg base)/3 mL solution for nebulization 3 ml inhalation QID PRN (Reason: wheezing) Qty: 90 1RF Rx Instructions: trial for acute exacerbation of asthma with pneumonia Aristada 662 mg/2.4 mL suspension,extended rel syring 662 mg IM QMONTH 0RF mirtazapine 15 mg Tablet 15 mg PO QHS 0RF lithium carbonate 300 mg Tablet 300 mg PO QHS 0RF aripiprazole 10 mg Tablet 10 mg PO DAILY 0RF ondansetron 4 mg tablet,disintegrating 4 mg PO Q6H PRN0RF Label Comments: Take 1 tablet every six hours as needed nicotine 14 mg/24 hr patch 24 hour 1 patch transdermal DAILY Qty: 14 0RF cetirizine [Zyrtec] 10 mg tablet 10 mg PO DAILY Qty: 30 0RF Mucinex 1,200 mg tablet extended release 12hr 1,200 mg PO BID Qty: 20 0RF Discharge Instructions Instructions: General Headache (ED) Additional Instructions: Follow up with primary care provider in 3-5 days. Return to ED sooner if any worsening or concerns. Increase oral fluids. Please take Tylenol or Ibuprofen with food every 4-6 hours as needed for pain and swelling. Take your previous migraine medication as previously prescribed. Referrals: Eric Singer DO [Primary Care Provider] - 5 days Medical Decision Making 26-year-old female who identifies as male presents to the ER with a chief complaint of migraine x2 days. Patient reports he has had a migraine over his left frontal scalp and the left eye which radiates into the back of his neck. He did try to take Imitrex p.o. prior to arrival but had an episode of emesis and vomited up. Reports this is typical for patient's migraines. Positive photosensitivity and phonophobia. Denies any recent head trauma or injuries denies any diarrhea or fever. Neurologic exam is intact no focal neuro deficits noted. Patient has a past medical history major depressive disorder, adjustment disorder, kidney stones, migraine, asthma. Normal saline 1 L ordered, Compazine and Benadryl and 6 mg sumatriptan subcu. 2316: Patient reevaluation, she reports her headache is much better after the medications. Plan will be to discharge home with follow-up with PCP and strict return instructions discussed. HPI General Mode of arrival: ambulatory . Date/Time Provider Initiated Documentation: 11/22/21 22:02 . Limitations to Documentation: no limitations . Information obtained by: patient, RN notes reviewed and old records reviewed . HPI Narrative: 26-year-old female who identifies as male presents to the ER with a chief complaint of migraine x2 days. Patient reports he has had a migraine over his left frontal scalp and the left eye which radiates into the back of his neck. He did try to take Imitrex p.o. prior to arrival but had an episode of emesis and vomited up. Reports this is typical for patient's migraines. Positive photosensitivity and phonophobia. Denies any recent head trauma or injuries denies any diarrhea or fever. Neurologic exam is intact no focal neuro deficits noted. Patient has a past medical history major depressive disorder, adjustment disorder, kidney stones, migraine, asthma. Related Data Home Medications Medication Instructions Recorded Confirmed nebulizer accessories #1 each 08/17/19 06/10/21 hydroxyzine HCl 10 mg tablet 10 - 30 mg PO DAILY tab 08/03/20 08/19/21 fluoxetine 20 mg capsule (Prozac) 20 mg PO DAILY 11/07/20 08/19/21 prochlorperazine maleate 10 mg 10 mg PO TID PRN #60 tab 12/19/20 08/19/21 tablet (Compazine) albuterol sulfate 90 mcg/actuation 2 puff INHALATION Q4H PRN #1 04/24/21 08/19/21 aerosol inhaler (ProAir HFA) inhaler aripiprazole 10 mg tablet 10 mg PO DAILY 08/17/21 08/19/21 aripiprazole lauroxil 662 mg/2.4 662 mg IM QMONTH 08/17/21 08/19/21 mL suspension, ext.rel. IM syringe (Aristada) lithium carbonate 300 mg tablet 300 mg PO QHS 08/17/21 08/19/21 mirtazapine 15 mg tablet 15 mg PO QHS 08/17/21 08/19/21 ondansetron 4 mg disintegrating 4 mg PO Q6H PRN 08/17/21 08/19/21 tablet cetirizine 10 mg tablet (Zyrtec) 10 mg PO DAILY #30 tab 08/18/21 08/19/21 guaifenesin 1,200 mg tablet, 1,200 mg PO BID #20 tab 08/18/21 08/19/21 extended release 12 hr (Mucinex) nicotine 14 mg/24 hr daily 1 patch TRANSDERMAL DAILY #14 ea 08/18/21 08/19/21 transdermal patch ipratropium 0.5 mg-albuterol 3 mg 3 ml INHALATION QID PRN #90 ml 08/19/21 08/19/21 (2.5 mg base)/3 mL nebulization soln fluticasone propionate 230 2 puff INHALATION BID #12 g 08/29/21 08/29/21 mcg-salmeterol 21 mcg/actuation HFA inhaler (Advair HFA) prenat.vits,rukhsana,cgj-miib-ibjuz 1 tab PO DAILY 08/30/21 Previous Rx's Medication Instructions Recorded nebulizer accessories #1 each 08/17/19 prochlorperazine maleate 10 mg 10 mg PO TID PRN #60 tab 12/19/20 tablet (Compazine) albuterol sulfate 90 mcg/actuation 2 puff INHALATION Q4H PRN #1 04/24/21 aerosol inhaler (ProAir HFA) inhaler cetirizine 10 mg tablet (Zyrtec) 10 mg PO DAILY #30 tab 08/18/21 guaifenesin 1,200 mg tablet, 1,200 mg PO BID #20 tab 08/18/21 extended release 12 hr (Mucinex) nicotine 14 mg/24 hr daily 1 patch TRANSDERMAL DAILY #14 ea 08/18/21 transdermal patch ipratropium 0.5 mg-albuterol 3 mg 3 ml INHALATION QID PRN #90 ml 08/19/21 (2.5 mg base)/3 mL nebulization soln fluticasone propionate 230 2 puff INHALATION BID #12 g 08/29/21 mcg-salmeterol 21 mcg/actuation HFA inhaler (Advair HFA) Allergies Allergy/AdvReac Type Severity Reaction Status Date / Time peanut Allergy Intermediate Swelling/Ed Verified 11/06/21 10:57 josy citalopram AdvReac Intermediate insomnia Verified 11/06/21 10:57 ultrasound gel Allergy Intermediate Itching Uncoded 11/06/21 10:57 General Stated Complaint: Headache CONOR: 3 Review of Systems All systems reviewed & are unremarkable except as noted in HPI and below Constitutional Constitutional: Reports headache(s) ENT Ears, Nose, Mouth, and Throat: Reports headache(s) Neurologic Neurologic: Reports headache(s) [facility] All Active Problems (Updated 11/22/21 @ 23:22 by Denisa Trujillo) Contact dermatitis due to adhesive bandage (Acute) Delayed menses (Acute) Hypomagnesemia (Acute) Acute bronchospasm (Acute) Asthma (Chronic) Discharge planning issues (Acute) Community acquired pneumonia (Acute) Bronchitis (Acute) Severe major depression with psychotic features (Acute) Pain, dental (Acute) Contraceptive management (Acute) Status post dilation and curettage (Acute) Asthma (Chronic) Migraine headache (Chronic) Syncopal episodes (Chronic) a. With heart murmur for which she had a normal cardiac evaluation. 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; anesthesia given to lower tooth Urinary tract infection requiring hospitalization Family History Mother Obstructive sleep apnea syndrome uses cpap hs Father Esophageal stricture Diabetes Sister Mental disorder Depression Brother Asthma Social History Smoking/Tobacco Use Status: Current-Occasional Tobacco Type: cigarettes Tobacco: How many years used: 1 Quit status: quit date established Smoking risk assessment performed?: Yes Alcohol Intake: former Drug use: Occasionally Substance use type: marijuana Details: few times a month; pt reports none on DOS 06/10/21 What type of physical activity do you participate in: walking Frequency: daily Seatbelt use: always Do you feel safe at home: Yes Do you feel safe in your relationship?: Yes Female Reproductive History Menstrual control method: progestin IUCD History History 2 Para 1 Hx # Term Pregnancies 1 Multiple births Hx # Pregnancies Ectopic pregnancies AB induced Hx Number of Living Children 1 AB spontaneous 1 Past Pregnancies Del. Date GA/Weeks # Outcome Route Wgt Sex Labor Lgth Anesthes ia Location Prov Complic 03/03/16 39 No Successful vaginal 2920.001 g Female Marjan 04/20/21 6 No Unsuccessful KJ Exam Narrative Exam Narrative: Constitutional: Alert and oriented x3. Appears stated age. Normal body habitus. Head: Normocephalic, no trauma. Eyes: Pupils PERRL, Red reflex noted, EOM's intact. Eyelids symmetrical without lesions, discharge, or swelling. ENT: Bilateral TM's WNL, External ear normal to inspection, no mastoid TTP, swelling, or erythema, Nasal turbinates WNL, no nasal discharge. Normal dentition, Posterior pharynx WNL, no exudate. Chest: RRR, Normal S1, S2, distal pulses intact. Resp: Lungs clear to auscultation bilaterally, no wheezes, rales, or rhonchi. Abdomen: Soft, non-distended, Normoactive bowel sounds all 4 quads. Musculoskeletal: Normal gait, 5/5 strength to all four extremities. Skin: No suspicious rashes or lesions. Capillary refill less than 2 sec. Neurologic: Cranial nerves II-XII intact. Alert and oriented x 3. Motor: No deficits noted. Sensory: Intact bilaterally all 4 extremities. Reflexes: DTR's intact bilaterally.. Hematologic/Lymphatic: No ecchymosis, no lymphadenopathy. Course Vital Signs Vital signs: Vital Signs Temperature 37.1 C 11/22/21 22:05 Pulse 90 11/22/21 22:05 Respiratory Rate 18 11/22/21 22:05 Blood Pressure 121/77 11/22/21 22:05 Pulse Oximetry 98 11/22/21 22:05 Temperature 37.1 C 11/22/21 22:05 Temperature Source Tympanic 11/22/21 22:05 Pulse 90 11/22/21 22:05 Respiratory Rate 18 11/22/21 22:05 Respiratory Effort 11/22/21 22:09 Blood Pressure 121/77 11/22/21 22:05 Blood Pressure Position Supine 11/22/21 22:05 Pulse Oximetry 98 11/22/21 22:05 Oxygen Delivery Method Room Air 11/22/21 22:05 Oxygen Flow Rate 0 11/22/21 22:05 Pain Level 9 11/22/21 22:05
[2021-11-22] MEDS: Normal Saline 1,000 ML 1000 ML IV (22:34)
[2021-11-22] MEDS: Prochlorperazine 10 MG/2 ML VIAL 5 MG IVP (22:34)
[2021-11-22] MEDS: SUMAtriptan 6 MG/0.5 ML VIAL SC (22:34)
[2021-11-22] MEDS: diphenhydrAMINE 50 MG/ML VIAL 12.5 MG IVP (22:34)
== END 2021-11-22 23:30 | disposition home or self-care (01) ==
PROVIDERS: Emergency Provider Registered Nurse Emergency; PCP Family Medicine
DX: G43.009 Migraine without aura, not intractable, without status migrainosus (principal)
CPT/HCPCS: 96361; 96372; 96374; 96375; 99284; 99283; J0780; J1200

== ENCOUNTER 2021-12-26 16:42 | Outpatient (REF) | payer MEDICAID, SELFPAY | END 2021-12-26 16:43 | disposition home or self-care (01) | LOC: LBN 16:42 | PROVIDERS: PCP Family Medicine; Visit Provider Family Medicine | DX: R35.0 Frequency of micturition; N23 Unspecified renal colic | CPT/HCPCS: 87086 ==

== ENCOUNTER 2021-12-26 21:18 | Emergency (ER) | payer MEDICAID, SELFPAY ==
[2021-12-26 21:21] VITALS: BP 112/73; PULSE 89; RESP 18; TEMP 36.6; O2SAT 99
--- NOTE | 2021-12-26 21:30 | DI.CT_ITS ---
Exam(s) CT RENAL COLIC WO EXAM: CT RENAL COLIC WO INDICATION: bilateral flank pain, r/o stone. COMPARISON: CT CT CHEST PE CTA from 08/17/2021 TECHNIQUE: CT examination was performed without contrast administration. FINDINGS: Images obtained through the lung bases are unremarkable. Visualized portions of the liver and splee n appear intact. Visualized portions of the pancreas are unremarkable. Gallbladder and bile ducts are CT normal. Abdominal aorta is of normal diameter. No significant abdominal wall hernia. No significant abdominal or pelvic adenopathy. Adrenals appear normal bilaterally. The kidneys are normal in size and shape. There is a nonobstructing 3 millimeter left renal calculus . No additional renal calcification. No ureteral calcification. No renal mass or hydronephrosis.. Urinary bladder is nearly empty and cannot be evaluated.. IMPRESSION: 3 millimeter non-obstructing left renal calculus noted. No other significant findings.. RADIATION DOSE DELIVERED: 838.28mGy.cm DLP 838.28mGy.cm Total DLP !Error CTDIvol RADIATION OPTIMIZATION: All CT scans at this facility use at least one of these dose optimization te chniques: automated exposure control; mA and/or kV adjustment per patient size (includes targeted exa ms where dose is matched to clinical indication); or iterative reconstruction.
--- NOTE | 2021-12-26 21:47 | ED.GENADUL_ITS ---
Discharge Plan Disposition Patient Disposition: HOME Condition: Good Discharge Details Clinical Impression: Acute flank pain, Acute hypokalemia Primary Care Provider: Eric Singer ED Provider: Jose Armando Whiting Home Meds and New Rx's Prescriptions: Continued ondansetron 4 mg tablet,disintegrating 4 mg PO Q6H PRN (Reason: nausea and vomiting) Qty: 30 0RF tramadol 50 mg tablet 50 mg PO Q8H PRN (Reason: pain) Qty: 20 0RF (DME) nebulizer accessories Kit See Rx Instructions .ROUTE .MEDSUPPLY Qty: 1 0RF Rx Instructions: Please dispense tubing for nebulizer, and use as directed Advair HFA 230-21 mcg/actuation HFA aerosol inhaler 2 puff inhalation BID Qty: 12 6RF hydroxyzine HCl 10 mg tablet 10 - 30 mg PO DAILY 0RF Rx Instructions: TAKE 1 TO 3 TABLETS BY MOUTH DAILY NEEDED FOR ANXIETY fluoxetine [Prozac] 20 mg capsule 20 mg PO DAILY 0RF prochlorperazine maleate [Compazine] 10 mg tablet 10 mg PO TID PRN (Reason: nausea and vomiting) Qty: 60 5RF albuterol sulfate [ProAir HFA] 90 mcg/actuation HFA aerosol inhaler 2 puff Inhalation Q4H PRN Qty: 1 5RF ipratropium-albuterol 0.5 mg-3 mg(2.5 mg base)/3 mL solution for nebulization 3 ml inhalation QID PRN (Reason: wheezing) Qty: 90 1RF Rx Instructions: trial for acute exacerbation of asthma with pneumonia mirtazapine 15 mg Tablet 15 mg PO QHS 0RF lithium carbonate 300 mg Tablet 300 mg PO QHS 0RF aripiprazole 10 mg Tablet 10 mg PO DAILY 0RF cetirizine [Zyrtec] 10 mg tablet 10 mg PO DAILY Qty: 30 0RF Discharge Instructions Instructions: Hypokalemia (ED), Flank Pain (ED) Additional Instructions: At this time your CAT scan is negative for any evidence of large stone. You may have passed a small stone and this could have caused some of your symptoms. There is no evidence significant infection otherwise. Your potassium was a bit low. Please eat foods high in potassium like legumes, and avocados and bananas. Please take Tylenol and Motrin as needed for pain. Please follow-up closely with your primary care provider for reassessment. Please use a heating pad to help with any back spasm that may develop. If you notice any worsening of your symptoms, or any new symptoms such as vomiting, diarrhea, fever, chills, shortness of breath, chest pain, numbness, weakness, or fainting , please return immediately to the emergency department for reevaluation. Please follow up with your primary care provider as soon as possible for reassessment and reevaluation. As always, it was a pleasure participating in your medical care today. Referrals: Eric Singer DO [Primary Care Provider] - Medical Decision Making This is a 26-year-old female who identifies as male, with a past medical history of reactive airway disease, alopecia, eczema, depression, presents today for evaluation of 1 week of flank pain and vomiting. Patient states that a week ago she developed bilateral flank pain, with some nausea. She did go to see her PCP, and on assessment then there was some blood noted in her urine, and there was concern for potential kidney stones that she does have a history of nonobstructing kidney stones. CT scan was ordered. Unfortunately the patient vomiting is persisted, in spite of Zofran. She has not keep anything down, including any pain medication. She denies any diarrhea. She denies any vaginal discharge. She does admit to having a fever of 101 2 days ago, but states that this resolved on its own. She has not had any repeat fevers. She denies any visualized blood in her urine. She denies any current fever now. No other complaints at this time. No other modifying factors. Physical exam is very reassuring. No evidence of an acute surgical abdomen. No significant abdominal tenderness on palpation. No pain to McBurney's point. Negative Lubin sign. Patient denies any vaginal discharge. She denies any lower pelvic pain. Mild CVA tenderness on percussion, however this is relatively unremarkable on exam. Differential includes kidney stone, pyelonephritis, mild urinary tract infection. We will get the CT scan that was ordered outpatient, we will treat the patient's nausea, we will rehydrate, will monitor closely and reassess. 11:50 PM Patient's laboratory work-up is returned, urinalysis shows a small amount of blood, small amount of WBCs, both within normal limits so. No nitrites, no leuk esterase, no evidence of infection. COVID flu and RSV are all negative. Laboratory work-up demonstrates normal electrolytes aside for slightly low potassium at 3.1. CBC is normal with no left shift, bandemia, or white count. CT scan shows no evidence of acute stone or other significant abnormality. After Toradol the patient is feeling much better, and she feels comfortable going home. Patient may have passed a small kidney stone already, but there appears to be no other component currently. There is a small 3 mm nonobstructing stone in the left kidney but I do not think this is causing her symptoms. On repeat abdominal exam she continues to show no signs acute surgical abdomen. No indication for further monitoring. With her symptoms improved, and her work-up reassuring and benign, patient will be discharged. She did give 40 of oral potassium here pill of oral potassium to go home with. Discussed red flags which to return. Recommend NSAIDs and heating pad for the back. I have extensively reviewed the treatment plan and discharge instructions with the patient. I have addressed all patient concerns at this time. The patient was made aware of what symptoms to monitor for that would warrant a return to the emergency department. Discussed the plan with the patient, they demonstrate verbal understanding and agreement with our assessment and plan at this time. The documentation in this chart was dictated using [facility] dictation software. Please excuse any dictation errors. FINDINGS: Liver: No mass. Gallbladder and bile ducts: No calcified stones. No ductal dilation. Pancreas: No ductal dilation. Spleen: No splenomegaly. Adrenal glands: Normal. No mass. Kidneys and ureters: Nonobstructing 3 mm left renal calculus. Stomach and bowel: No obstruction. No mucosal thickening. Appendix: No evidence of appendicitis. Intraperitoneal space: No free air. No significant fluid collection. Arteries: Unremarkable. No abdominal aortic aneurysm. Veins: Small bilateral pelvic phleboliths. Lymph nodes: No enlarged lymph nodes. Urinary bladder: Questionable mild mucosal thickening, however, urinary bladder is not fully distended. Reproductive: Unremarkable as visualized. Bones/joints: Unremarkable. No acute fracture. Soft tissues: Subcutaneous adipose tissue nodules in the gluteal regions, possibly injections granulomas. IMPRESSION: Nonobstructing 3 mm left renal calculus. No calculi elsewhere in the course of the urinary tract. Thank you for allowing us to participate in the care of your patient. Dictated and Authenticated by: Keyur Kraus MD 12/26/2021 10:57 PM Eastern Time ([place] & [place]) HPI General Date/Time Provider Initiated Documentation: 12/26/21 21:26 . HPI Narrative: This is a 26-year-old female who identifies as male, with a past medical history of reactive airway disease, alopecia, eczema, depression, presents today for evaluation of 1 week of flank pain and vomiting. Patient states that a week ago she developed bilateral flank pain, with some nausea. She did go to see her PCP, and on assessment then there was some blood noted in her urine, and there was concern for potential kidney stones that she does have a history of nonobstructing kidney stones. CT scan was ordered. Unfortunately the patient vomiting is persisted, in spite of Zofran. She has not keep anything down, including any pain medication. She denies any diarrhea. She denies any vaginal discharge. She does admit to having a fever of 101 2 days ago, but states that this resolved on its own. She has not had any repeat fevers. She denies any visualized blood in her urine. She denies any current fever now. No other complaints at this time. No other modifying factors. Related Data Home Medications Medication Instructions Recorded Confirmed nebulizer accessories #1 each 08/17/19 06/10/21 hydroxyzine HCl 10 mg tablet 10 - 30 mg PO DAILY tab 08/03/20 08/19/21 fluoxetine 20 mg capsule (Prozac) 20 mg PO DAILY 11/07/20 08/19/21 prochlorperazine maleate 10 mg 10 mg PO TID PRN #60 tab 12/19/20 08/19/21 tablet (Compazine) albuterol sulfate 90 mcg/actuation 2 puff INHALATION Q4H PRN #1 04/24/21 08/19/21 aerosol inhaler (ProAir HFA) inhaler aripiprazole 10 mg tablet 10 mg PO DAILY 08/17/21 08/19/21 lithium carbonate 300 mg tablet 300 mg PO QHS 08/17/21 08/19/21 mirtazapine 15 mg tablet 15 mg PO QHS 08/17/21 08/19/21 cetirizine 10 mg tablet (Zyrtec) 10 mg PO DAILY #30 tab 08/18/21 08/19/21 ipratropium 0.5 mg-albuterol 3 mg 3 ml INHALATION QID PRN #90 ml 08/19/21 08/19/21 (2.5 mg base)/3 mL nebulization soln fluticasone propionate 230 2 puff INHALATION BID #12 g 08/29/21 08/29/21 mcg-salmeterol 21 mcg/actuation HFA inhaler (Advair HFA) ondansetron 4 mg disintegrating 4 mg PO Q6H PRN #30 tab 12/26/21 12/26/21 tablet tramadol 50 mg tablet 50 mg PO Q8H PRN #20 tab 12/26/21 12/26/21 Previous Rx's Medication Instructions Recorded nebulizer accessories #1 each 08/17/19 prochlorperazine maleate 10 mg 10 mg PO TID PRN #60 tab 12/19/20 tablet (Compazine) albuterol sulfate 90 mcg/actuation 2 puff INHALATION Q4H PRN #1 04/24/21 aerosol inhaler (ProAir HFA) inhaler cetirizine 10 mg tablet (Zyrtec) 10 mg PO DAILY #30 tab 08/18/21 ipratropium 0.5 mg-albuterol 3 mg 3 ml INHALATION QID PRN #90 ml 08/19/21 (2.5 mg base)/3 mL nebulization soln fluticasone propionate 230 2 puff INHALATION BID #12 g 08/29/21 mcg-salmeterol 21 mcg/actuation HFA inhaler (Advair HFA) ondansetron 4 mg disintegrating 4 mg PO Q6H PRN #30 tab 12/26/21 tablet tramadol 50 mg tablet 50 mg PO Q8H PRN #20 tab 12/26/21 Allergies Allergy/AdvReac Type Severity Reaction Status Date / Time peanut Allergy Intermediate Swelling/Ed Verified 12/26/21 15:22 josy citalopram AdvReac Intermediate insomnia Verified 12/26/21 15:22 ultrasound gel Allergy Intermediate Itching Uncoded 12/26/21 15:22 General Stated Complaint: Nausea/Vomit/Diar CONOR: 3 Review of Systems All systems reviewed & are unremarkable except as noted in HPI and below PFSH All Active Problems (Updated 12/26/21 @ 23:40 by Jose Armando Whiting DO) Acute flank pain (Acute) Acute hypokalemia (Acute) Contact dermatitis due to adhesive bandage (Acute) Delayed menses (Acute) Hypomagnesemia (Acute) Acute bronchospasm (Acute) Asthma (Chronic) Discharge planning issues (Acute) Community acquired pneumonia (Acute) Bronchitis (Acute) Severe major depression with psychotic features (Acute) Pain, dental (Acute) Contraceptive management (Acute) Status post dilation and curettage (Acute) Asthma (Chronic) Migraine headache (Chronic) Syncopal episodes (Chronic) a. With heart murmur for which she had a normal cardiac evaluation. 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; anesthesia given to lower tooth Urinary tract infection requiring hospitalization Family History Mother Obstructive sleep apnea syndrome uses cpap hs Father Esophageal stricture Diabetes Sister Mental disorder Depression Brother Asthma Social History Smoking/Tobacco Use Status: Current-Occasional Tobacco Type: cigarettes Tobacco: How many years used: 1 Quit status: quit date established Smoking risk assessment performed?: Yes Alcohol Intake: former Drug use: Occasionally Substance use type: marijuana Details: few times a month; pt reports none on DOS 06/10/21 What type of physical activity do you participate in: walking Frequency: daily Seatbelt use: always Do you feel safe at home: Yes Do you feel safe in your relationship?: Yes Female Reproductive History Menstrual control method: progestin IUCD History History 2 Para 1 Hx # Term Pregnancies 1 Multiple births Hx # Pregnancies Ectopic pregnancies AB induced Hx Number of Living Children 1 AB spontaneous 1 Past Pregnancies Del. Date GA/Weeks # Outcome Route Wgt Sex Labor Lgth Anesthes ia Location Prov Complic 03/03/16 39 No Successful vaginal 2920.001 g Female Marjan 04/20/21 6 No Unsuccessful KJ Exam Narrative Exam Narrative: 1.Const: Well-nourished, Well-developed, appearing stated age 2.Eyes: PERRL, no conjunctival injection, and symmetrical lids. 3.ENT: Atraumatic external nose and ears. DryMM. Neck: Symmetric, trachea midline, No thyromegaly. 4.CVS: +S1/S2, No murmurs or gallops. Peripheral pulses 2+ and equal in all extremities. Brisk capillary refill in all extremities. 5.RESP: Unlabored respiratory effort. Clear to auscultation bilaterally. No wheezes rales or rhonchi 6.GI: Soft, nondistended. No guarding or rebound. Minimal left and right CVA tenderness on percussion. Worse on the left than the right. No significant abdominal tenderness on palpation. No pain at McBurney's point. Negative Lubin sign. 7.MSK: Normocephalic/Atraumatic, Extremities w/o deformity or ttp No cyanosis or clubbing, Normal movement of all extremities 8.Skin: Warm, Dry. No rashes or lesions. 9.Neuro: contour grinder II-XII grossly intact. Sensation grossly intact, no focal neurologic deficits. 10.Psych: (AAO) x3. Appropriate mood and affect Course Vital Signs Vital signs: Vital Signs Temperature 36.6 C 12/26/21 21:21 Pulse 89 12/26/21 21:21 Respiratory Rate 18 12/26/21 21:21 Blood Pressure 112/73 12/26/21 21:21 Pulse Oximetry 99 12/26/21 21:21 Temperature 36.6 C 12/26/21 21:21 Temperature Source Temporal Artery Scan 12/26/21 21:21 Pulse 89 12/26/21 21:21 Respiratory Rate 18 12/26/21 21:21 Respiratory Effort 12/26/21 21:25 Blood Pressure 112/73 12/26/21 21:21 Blood Pressure Position Sitting 12/26/21 21:21 Pulse Oximetry 99 12/26/21 21:21 Oxygen Delivery Method Room Air 12/26/21 21:21 Oxygen Flow Rate 0 12/26/21 21:21 Pain Level 7 12/26/21 21:25
[2021-12-26] MEDS: Ondansetron 4 MG/2 ML VIAL IVP (22:05)
[2021-12-26] MEDS: Normal Saline 1,000 ML 1000 ML IV (22:05)
[2021-12-26 22:20] LABS: Bilirubin Negative (Negative); Blood Small (Negative); Clarity Clear (Clear); Glucose Negative (Negative); Ketones Negative (Negative); Leukocyte Esterase Negative (Negative); Nitrite Negative (Negative); Specific Gravity >= 1.030 (1.005-1.025); Urobilinogen 0.2 EU/dL (Up TO 0.2)
[2021-12-26 22:21] LABS: Abs Immature Grans 0.02 10^3/uL (0.0-0.06); Absolute Basophil Count 0.05 10^3/uL (0.0-0.2); Absolute Eosinophil Count 0.23 10^3/uL (0.0-0.7); Absolute Lymphocyte Count 3.06 10^3/uL (1.2-3.4); Absolute Monocyte Count 0.77 10^3/uL (0.1-0.8); Absolute Neutrophil Count 5.15 10^3/uL (1.2-6.7); Basophils % 0.5; Eosinophils % 2.5; HCT 40.2 % (36.0-46.0); HGB 12.9 g/dL (11.2-15.7); Immature Grans % 0.2; MCH 28.4 pg (27.0-33.0); MCHC 32.1 % (32.0-36.0); MCV 88.4 fL (80-95); MPV 11.1 fL (8.0-11.0); Monocytes % 8.3; Neutrophils % 55.5; Platelet Count 329 10^3/uL (130-400); RBC 4.55 10^6/uL (3.93-5.22); RDW 12.6 % (11.7-14.6); RDW-SD 41.1 fL; WBC 9.28 10^3/uL (4.4-10.8)
[2021-12-26 22:30] VITALS: BP 97/62; PULSE 79; TEMP 36.9; O2SAT 99
[2021-12-26 22:30] LABS: Bacteria Few HPF (Negative); C & S Indicated? No; Crystals Many Calcium Oxalate HPF (Negative); Epithelial Cells Moderate HPF (Negative); Mucus Trace (Negative)
[2021-12-26] MEDS: Ketorolac 15 MG/ML VIAL (22:37)
[2021-12-26 22:42] LABS: ALT 19 U/L (14-59); AST 13 U/L (15-37); Albumin 4.1 g/dL (3.4-5.0); Alkaline Phosphatase 72 U/L (46-116); Anion Gap 7.4 mmol/L (3-11); BUN 9 mg/dL (7-18); Bilirubin, Total 0.3 mg/dL (0.2-1.0); CO2 27.6 mmol/L (21.0-32.0); CREATININE 0.9 mg/dL (0.55-1.02); Calcium 9.1 mg/dL (8.5-10.1); Chloride 104 mmol/L (98-107); Glucose 87 mg/dL (74-106); Potassium 3.1 mmol/L (3.5-5.1); Sodium 139 mmol/L (136-145); Total Protein 7.6 g/dL (6.4-8.2)
[2021-12-26 22:54] LABS: Lipase 100 U/L (73-393)
--- NOTE | 2021-12-26 22:59 | DI.VRAD_ITS ---
PROCEDURE INFORMATION: Exam: CT Abdomen And Pelvis Without Contrast Exam date and time: 12/26/2021 10:17 PM Age: 26 years old Clinical indication: Other: Bilateral flank pain, R/O stone TECHNIQUE: Imaging protocol: Computed tomography of the abdomen and pelvis without contrast. COMPARISON: CT ABDOMEN PELVIS W 03/04/2020 10:53 AM FINDINGS: Liver: No mass. Gallbladder and bile ducts: No calcified stones. No ductal dilation. Pancreas: No ductal dilation. Spleen: No splenomegaly. Adrenal glands: Normal. No mass. Kidneys and ureters: Nonobstructing 3 mm left renal calculus. Stomach and bowel: No obstruction. No mucosal thickening. Appendix: No evidence of appendicitis. Intraperitoneal space: No free air. No significant fluid collection. Arteries: Unremarkable. No abdominal aortic aneurysm. Veins: Small bilateral pelvic phleboliths. Lymph nodes: No enlarged lymph nodes. Urinary bladder: Questionable mild mucosal thickening, however, urinary bladder is not fully distended. Reproductive: Unremarkable as visualized. Bones/joints: Unremarkable. No acute fracture. Soft tissues: Subcutaneous adipose tissue nodules in the gluteal regions, possibly injections granulomas. IMPRESSION: Nonobstructing 3 mm left renal calculus. No calculi elsewhere in the course of the urinary tract. Dictated and Authenticated by: Keyur Kraus MD. Ordering:WARD Suárez MD
[2021-12-26 23:00] LABS: COVID-19 PCR Negative (Negative); Influenza A PCR Negative (Negative); Influenza B PCR Negative (Negative); RSV PCR Negative (Negative)
[2021-12-26] MEDS: Potassium Chloride 20 MEQ TABCR 40 MEQ PO ×2 (23:12→23:33)
== END 2021-12-26 23:41 | disposition home or self-care (01) ==
PROVIDERS: Emergency Provider Student in an Organized Health Care Education/Training Program; PCP Family Medicine
DX: R10.9 Unspecified abdominal pain (principal); R11.2 Nausea with vomiting, unspecified; E87.6 Hypokalemia; Z20.822 Contact with and (suspected) exposure to COVID-19
CPT/HCPCS: 80053; 83690; 87637; 96361; 96374; 96375; 99284; 74176; 81003; 81015; 85025; J1885; J2405

== ENCOUNTER 2022-01-02 10:54 | Emergency (ER) | payer MEDICAID, SELFPAY ==
[2022-01-02] VITALS (12 sets, daily range): BP systolic 101–112; BP diastolic 57–76; PULSE 70–84; RESP 16–19; TEMP 37; O2SAT 97–100
--- NOTE | 2022-01-02 11:00 | DI.CT_ITS ---
Exam(s) CT HEAD WO EXAM: CT HEAD WO CLINICAL HISTORY: Near syncope. TECHNIQUE: Imaging Protocol: Axial computed tomography images with coronal and sagittal reformatted images were created and reviewed COMPARISON: No exams were available for comparison FINDINGS: Ventricles and Extra axial spaces: Normal in size and morphology for the patient's age. Hemorrhage: None. Cerebral parenchyma: Normal. Midline shift: None. Brainstem/Cerebellum: Normal. Calvarium: Normal. Visualized Paranasal sinuses/Mastoids: Clear. Soft Tissues: Unremarkable. IMPRESSION: No acute intracranial process. RADIATION DOSE DELIVERED: 676.57mGy.cm Total DLP DATA REPOSITORY: All CT scans at this facility are submitted to the National Radiology Data Registry (NRDR) Dose Index Registry (DIR) with the [employer] ([employer]). RADIATION OPTIMIZATION: All CT scans at this facility use at least one of these dose optimization te chniques: automated exposure control; mA and/or kV adjustment per patient size (includes targeted exa ms where dose is matched to clinical indication); or iterative reconstruction.
--- NOTE | 2022-01-02 11:00 | RT.EKG_ITS ---
APPROVED REPORT Exam: Resting ECG Reason for Exam: near syncope Patient Location: E HR:67 bpm ECG Measurements Heart Rate 67 AXIS [place] 181 P 64 QRSd 107 QRS 59 QT 393 T -26 QTc 415 Conclusion Sinus rhythm...normal P axis Probable left atrial enlargement. T wav inversions, previously noted
--- NOTE | 2022-01-02 11:10 | ED.GENADUL_ITS ---
Discharge Plan Disposition Patient Disposition: HOME Condition: Improving Discharge Details Clinical Impression: Near syncope Primary Care Provider: Eric Singer ED Provider: Jalen Raymond Home Meds and New Rx's Prescriptions: Continued ondansetron 4 mg tablet,disintegrating 4 mg PO Q6H PRN (Reason: nausea and vomiting) Qty: 30 0RF tramadol 50 mg tablet 50 mg PO Q8H PRN (Reason: pain) Qty: 20 0RF (DME) nebulizer accessories Kit See Rx Instructions .ROUTE .MEDSUPPLY Qty: 1 0RF Rx Instructions: Please dispense tubing for nebulizer, and use as directed Advair HFA 230-21 mcg/actuation HFA aerosol inhaler 2 puff inhalation BID Qty: 12 6RF hydroxyzine HCl 10 mg tablet 10 - 30 mg PO DAILY 0RF Rx Instructions: TAKE 1 TO 3 TABLETS BY MOUTH DAILY NEEDED FOR ANXIETY fluoxetine [Prozac] 20 mg capsule 20 mg PO DAILY 0RF prochlorperazine maleate [Compazine] 10 mg tablet 10 mg PO TID PRN (Reason: nausea and vomiting) Qty: 60 5RF albuterol sulfate [ProAir HFA] 90 mcg/actuation HFA aerosol inhaler 2 puff Inhalation Q4H PRN Qty: 1 5RF ipratropium-albuterol 0.5 mg-3 mg(2.5 mg base)/3 mL solution for nebulization 3 ml inhalation QID PRN (Reason: wheezing) Qty: 90 1RF Rx Instructions: trial for acute exacerbation of asthma with pneumonia mirtazapine 15 mg Tablet 15 mg PO QHS 0RF lithium carbonate 300 mg Tablet 300 mg PO QHS 0RF aripiprazole 10 mg Tablet 10 mg PO DAILY 0RF cetirizine [Zyrtec] 10 mg tablet 10 mg PO DAILY Qty: 30 0RF Discharge Instructions Instructions: Near Syncope (ED) Additional Instructions: Home to rest today. Small, frequent sips of fluids so that you maintain good hydration. Return to the ER for any acute concerns. Medical Decision Making This is a 26-year-old patient who prefers male pronouns. Presents stating that while in the bath he felt flashing strobe lights, lightheadedness, twitching of the right hand, and then feel like the passed out for approximately 1 hour. No tongue biting, no loss of continence., No headache, no chest pain or palpitations. Recently well and had finished passing kidney stones. Now improved. Exam is reassuring. Differential diagnosis includes near syncope, syncopal event, patient's history of electrolyte abnormalities, may be atypical partial complex seizure. Patient's laboratories are reassuring. CT scan of the head is unremarkable. Th e patient remains improved and without persistent discomfort or complaint. Work-up is reassuring, will discharge to home. Stable at this time. Lab Data Lab results reviewed: Yes I reviewed the patient's lab results. Labs: Laboratory Results - last 24 hr 01/02/22 01/02/22 01/02/22 11:09 11:09 11:18 WBC 6.37 RBC 4.48 Hgb 12.9 Hct 39.2 MCV 87.5 MCH 28.8 MCHC 32.9 RDW 12.5 Plt Count 264 MPV 10.8 Immature Gran % 0.3 Neutrophils % 61.8 Lymphocytes % 28.1 Monocytes % 7.4 Eosinophils % 1.9 Basophils % 0.5 Nucleated RBC % 0.0 Absolute Neutrophils 3.94 Absolute Lymphocytes 1.79 Absolute Monocytes 0.47 Absolute Eosinophils 0.12 Absolute Basophils 0.03 Sodium 136 Potassium 3.6 Chloride 104 Carbon Dioxide 24.8 Anion Gap 7.2 BUN 7 Creatinine 0.8 Estimated GFR/1.73 m2 >= 60.00 Glucose 93 Calcium 9.2 Magnesium 2.2 Total Bilirubin 0.6 AST 14 L ALT 22 Alkaline Phosphatase 75 Total Protein 7.8 Albumin 4.3 Urine Color Yellow Urine Clarity Clear Urine pH 7.5 Ur Specific [place] 1.025 Urine Protein Negative Urine Ketones Negative Urine Blood Negative Urine Nitrite Negative Urine Bilirubin Negative Urine Urobilinogen 0.2 Ur Leukocyte Esterase Trace H Urine RBC Negative Urine WBC 0-2 Ur Epithelial Cells Rare Urine Crystals Negative Urine Bacteria Rare Urine Casts Negative Urine Mucus Negative Urine Other Negative Ur Culture Indicated? No Urine Glucose Negative HPI General Mode of arrival: EMS . Date/Time Provider Initiated Documentation: 01/02/22 10:58 . Limitations to Documentation: no limitations . Information obtained by: patient and EMS . History of Present Illness 26 year old F presents to the emergency department with the chief complaint of Near syncope at home., described as mild and similar to prior episodes, and is localized to the head. Patient reports no radiation. Patient started experiencing this minute(s) and it has been now resolved. improves with No relieving factors improve symptom(s), No exacerbating factors reported . Patient notes no other symptoms.; denies chest pain, diaphoresis, fever/chills, headaches, loss of appetite, malaise, nausea/vomiting, rash and weakness. Patient did receive the following treatments prior to arrival, none Related Data Home Medications Medication Instructions Recorded Confirmed nebulizer accessories #1 each 08/17/19 06/10/21 hydroxyzine HCl 10 mg tablet 10 - 30 mg PO DAILY tab 08/03/20 01/02/22 fluoxetine 20 mg capsule (Prozac) 20 mg PO DAILY 11/07/20 01/02/22 prochlorperazine maleate 10 mg 10 mg PO TID PRN #60 tab 12/19/20 01/02/22 tablet (Compazine) albuterol sulfate 90 mcg/actuation 2 puff INHALATION Q4H PRN #1 04/24/21 01/02/22 aerosol inhaler (ProAir HFA) inhaler aripiprazole 10 mg tablet 10 mg PO DAILY 08/17/21 01/02/22 lithium carbonate 300 mg tablet 300 mg PO QHS 08/17/21 01/02/22 mirtazapine 15 mg tablet 15 mg PO QHS 08/17/21 01/02/22 cetirizine 10 mg tablet (Zyrtec) 10 mg PO DAILY #30 tab 08/18/21 01/02/22 ipratropium 0.5 mg-albuterol 3 mg 3 ml INHALATION QID PRN #90 ml 08/19/21 01/02/22 (2.5 mg base)/3 mL nebulization soln fluticasone propionate 230 2 puff INHALATION BID #12 g 08/29/21 08/29/21 mcg-salmeterol 21 mcg/actuation HFA inhaler (Advair HFA) ondansetron 4 mg disintegrating 4 mg PO Q6H PRN #30 tab 12/26/21 01/02/22 tablet tramadol 50 mg tablet 50 mg PO Q8H PRN #20 tab 12/26/21 01/02/22 Previous Rx's Medication Instructions Recorded nebulizer accessories #1 each 08/17/19 prochlorperazine maleate 10 mg 10 mg PO TID PRN #60 tab 12/19/20 tablet (Compazine) albuterol sulfate 90 mcg/actuation 2 puff INHALATION Q4H PRN #1 04/24/21 aerosol inhaler (ProAir HFA) inhaler cetirizine 10 mg tablet (Zyrtec) 10 mg PO DAILY #30 tab 08/18/21 ipratropium 0.5 mg-albuterol 3 mg 3 ml INHALATION QID PRN #90 ml 08/19/21 (2.5 mg base)/3 mL nebulization soln fluticasone propionate 230 2 puff INHALATION BID #12 g 08/29/21 mcg-salmeterol 21 mcg/actuation HFA inhaler (Advair HFA) ondansetron 4 mg disintegrating 4 mg PO Q6H PRN #30 tab 12/26/21 tablet tramadol 50 mg tablet 50 mg PO Q8H PRN #20 tab 12/26/21 Allergies Allergy/AdvReac Type Severity Reaction Status Date / Time peanut Allergy Intermediate Swelling/Ed Verified 12/26/21 15:22 josy citalopram AdvReac Intermediate insomnia Verified 12/26/21 15:22 ultrasound gel Allergy Intermediate Itching Uncoded 12/26/21 15:22 General Stated Complaint: Dizzy/Sync CONOR: 3 Review of Systems Narrative: Now feels improved states that they feel slightly spacey. No syncope, no tongue biting, no incontinence. Recently well. Recently passed kidney stones. No longer taking pain medications. 8 systems were reviewed and otherwise negative PFSH All Active Problems (Updated 01/02/22 @ 11:55 by Jalen Ramyond MD) Acute flank pain (Acute) Acute hypokalemia (Acute) Near syncope (Acute) Contact dermatitis due to adhesive bandage (Acute) Delayed menses (Acute) Hypomagnesemia (Acute) Acute bronchospasm (Acute) Asthma (Chronic) Discharge planning issues (Acute) Community acquired pneumonia (Acute) Bronchitis (Acute) Severe major depression with psychotic features (Acute) Pain, dental (Acute) Contraceptive management (Acute) Status post dilation and curettage (Acute) Asthma (Chronic) Migraine headache (Chronic) Syncopal episodes (Chronic) a. With heart murmur for which she had a normal cardiac evaluation. 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 F/u echo in 5 years Depression (Chronic 01/24/15) 04/25 - 05/02/18 Inpatient [facility] (depression with suicidal ideation) Adjustment disorder with mixed anxiety and depressed mood (Chronic) per [facility] Mikayla cedillo Major depressive disorder, recurrent episode, severe (Chronic) per [facility] Mikayla cedillo Medical History Allergic rhinitis Alopecia (capitis) totalis Asthma Atopic dermatitis Czjint-co-cldk transgender person Preferred name: Teodora He/Him pronouns 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; anesthesia given to lower tooth Urinary tract infection requiring hospitalization Family History Mother Obstructive sleep apnea syndrome uses cpap hs Father Esophageal stricture Diabetes Sister Mental disorder Depression Brother Asthma Social History Smoking/Tobacco Use Status: Current-Occasional Tobacco Type: cigarettes Tobacco: How many years used: 1 Quit status: quit date established Smoking risk assessment performed?: Yes Alcohol Intake: former Drug use: Occasionally Substance use type: marijuana Details: few times a month; pt reports none on DOS 06/10/21 What type of physical activity do you participate in: walking Frequency: daily Seatbelt use: always Do you feel safe at home: Yes Do you feel safe in your relationship?: Yes Female Reproductive History Menstrual control method: progestin IUCD History History 2 Para 1 Hx # Term Pregnancies 1 Multiple births Hx # Pregnancies Ectopic pregnancies AB induced Hx Number of Living Children 1 AB spontaneous 1 Past Pregnancies Del. Date GA/Weeks # Outcome Route Wgt Sex Labor Lgth Anesthes ia Location Prov Complic 03/03/16 39 No Successful vaginal 2920.001 g Female Marjan 04/20/21 6 No Unsuccessful KJ Exam Narrative Exam Narrative: GEN: awake, alert, oriented 3. Pleasant, well groomed, interactive. HEAD: Normocephalic, atraumatic ENT: Mucous membranes moist, oropharynx unremarkable, External ear exam unremarkable EYES: PERRL, EOMI NECK: Eczematous changes to posterior neck, no surrounding erythema, full ROM, no MIREYA, no menigismus CHEST/RESP: Nontender, clear to auscultation bilateral, no wheeze/rhonchi/rales CARDIOVASCULAR: RRR, no murmur, rub corine. 2+ Rad pulse bilateral ABDOMEN: Soft, nontender, no mass. +Bowel sounds EXT: Full ROM, no edema, no rash Neuro: Grossly normal neurologic exam, conversant, interactive. Psych: Speech fluent, thoughts congruent, affect normal Course Vital Signs Vital signs: Vital Signs Temperature 37.0 C 01/02/22 10:56 Pulse 82 01/02/22 10:56 Respiratory Rate 19 01/02/22 10:56 Blood Pressure 112/76 01/02/22 10:56 Pulse Oximetry 100 01/02/22 10:56 Temperature 37.0 C 01/02/22 10:56 Temperature Source Tympanic 01/02/22 10:56 Pulse 82 01/02/22 10:56 Respiratory Rate 19 01/02/22 10:56 Respiratory Effort Non-Labored 01/02/22 11:06 Respiratory Depth Normal 01/02/22 11:06 Respiratory Pattern Normal 01/02/22 11:06 Blood Pressure 112/76 01/02/22 10:56 Pulse Oximetry 100 01/02/22 10:56 Oxygen Delivery Method Room Air 01/02/22 10:56 Oxygen Flow Rate 0 01/02/22 10:56
[2022-01-02 11:31] LABS: Abs Immature Grans 0.02 10^3/uL (0.0-0.06); Absolute Basophil Count 0.03 10^3/uL (0.0-0.2); Absolute Eosinophil Count 0.12 10^3/uL (0.0-0.7); Absolute Lymphocyte Count 1.79 10^3/uL (1.2-3.4); Absolute Monocyte Count 0.47 10^3/uL (0.1-0.8); Absolute Neutrophil Count 3.94 10^3/uL (1.2-6.7); Basophils % 0.5; Eosinophils % 1.9; HCT 39.2 % (36.0-46.0); HGB 12.9 g/dL (11.2-15.7); Immature Grans % 0.3; Lymphocytes % 28.1; MCH 28.8 pg (27.0-33.0); MCHC 32.9 % (32.0-36.0); MCV 87.5 fL (80-95); MPV 10.8 fL (8.0-11.0); Monocytes % 7.4; Neutrophils % 61.8; Platelet Count 264 10^3/uL (130-400); RBC 4.48 10^6/uL (3.93-5.22); RDW 12.5 % (11.7-14.6); RDW-SD 40.3 fL; WBC 6.37 10^3/uL (4.4-10.8)
[2022-01-02 11:32] LABS: Bilirubin Negative (Negative); Blood Negative (Negative); Clarity Clear (Clear); Glucose Negative (Negative); Ketones Negative (Negative); Leukocyte Esterase Trace (Negative); Nitrite Negative (Negative); Specific Gravity 1.025 (1.005-1.025); Urobilinogen 0.2 EU/dL (Up TO 0.2); pH 7.5 (5-8)
[2022-01-02 11:38] LABS: WBC 0-2 HPF (0-5)
[2022-01-02 11:39] LABS: Bacteria Rare HPF (Negative); C & S Indicated? No; Casts Negative LPF (Negative); Crystals Negative HPF (Negative); Epithelial Cells Rare HPF (Negative); Mucus Negative (Negative); Other Cells Negative (Negative); RBC Negative HPF (0-2)
[2022-01-02 11:45] LABS: ALT 22 U/L (14-59); AST 14 U/L (15-37); Albumin 4.3 g/dL (3.4-5.0); Alkaline Phosphatase 75 U/L (46-116); Anion Gap 7.2 mmol/L (3-11); BUN 7 mg/dL (7-18); Bilirubin, Total 0.6 mg/dL (0.2-1.0); CO2 24.8 mmol/L (21.0-32.0); CREATININE 0.8 mg/dL (0.55-1.02); Calcium 9.2 mg/dL (8.5-10.1); Chloride 104 mmol/L (98-107); Glucose 93 mg/dL (74-106); Magnesium 2.2 mg/dL (1.8-2.4); Potassium 3.6 mmol/L (3.5-5.1); Sodium 136 mmol/L (136-145); Total Protein 7.8 g/dL (6.4-8.2)
== END 2022-01-02 12:33 | disposition home or self-care (01) ==
LOC: ER 11:59
PROVIDERS: Emergency Provider Emergency Medicine; PCP Family Medicine
DX: R55 Syncope and collapse (principal)
CPT/HCPCS: 36415; 80053; 81025; 93005; 99284; 70450; 81003; 81015; 83735; 85025; 93010

== ENCOUNTER 2022-01-12 00:47 | Outpatient (REF) | payer MEDICAID, SELFPAY ==
[2022-01-13 12:14] LABS: COVID-19 RT-PCR UVMMC Result Negative (Negative)
== END 2022-01-12 00:48 | disposition home or self-care (01) ==
LOC: LBN 00:47
PROVIDERS: PCP Family Medicine; Visit Provider Physician Assistant Medical
DX: R05.8 Other specified cough (principal); Z20.822 Contact with and (suspected) exposure to COVID-19
CPT/HCPCS: U0003

== ENCOUNTER 2022-01-18 02:43 | Outpatient (RCR) | payer MEDICAID, SELFPAY ==
--- NOTE | 2022-01-18 13:00 | HOLTER_ITS ---
APPROVED REPORT Conclusion This is a 48-hour Holter monitor ordered for syncope Rhythm throughout was sinus with an average heart rate of 89. Minimum was 53, maximum 158 There were very rare isolated premature ventricular contractions There were no supraventricular dysrhythmias There was no atrial fibrillation, no high-grade AV block, no pauses greater than 3 seconds There were no apparent patient symptoms
== END 2022-02-06 23:59 | disposition home or self-care (01) ==
LOC: RT 02:43
PROVIDERS: PCP Family Medicine; Visit Provider Family Medicine
DX: R55 Syncope and collapse (principal)
CPT/HCPCS: 93225; 93226

== ENCOUNTER 2022-01-27 15:14 | Outpatient (REF) | payer MEDICAID, SELFPAY ==
[2022-01-29 12:20] LABS: COVID-19 RT-PCR UVMMC Result Negative (Negative)
== END 2022-01-27 15:15 | disposition home or self-care (01) ==
LOC: LBN 15:14
PROVIDERS: PCP Family Medicine; Visit Provider Physician Assistant Medical
DX: Z20.822 Contact with and (suspected) exposure to COVID-19 (principal); R05.8 Other specified cough
CPT/HCPCS: U0003

== ENCOUNTER 2022-03-20 16:47 | Outpatient (CLI) | payer MEDICAID, SELFPAY ==
[2022-03-20 11:47] LABS: HCG Qual (Serum) Negative
== END 2022-03-20 16:48 | disposition home or self-care (01) ==
LOC: LBO 16:48
PROVIDERS: PCP Family Medicine; Visit Provider Nurse Practitioner Women's Health
DX: N92.5 Other specified irregular menstruation (principal)
CPT/HCPCS: 36415; 84703

== ENCOUNTER → 2022-03-23 00:43 | Outpatient (CLI) | payer MEDICAID, SELFPAY | PROVIDERS: PCP Family Medicine; Visit Provider Nurse Practitioner Gerontology ==

== ENCOUNTER → 2022-04-11 02:22 | Outpatient (CLI) | payer MEDICAID, SELFPAY ==
--- NOTE | 2022-04-11 10:38 | DI.US_ITS ---
APPROVED REPORT EXAM: Comprehensive 2D, Doppler, and color-flow Echocardiogram Patient Location: Out-Patient [facility] Tender: Delmi Patrick RDCS (AE) Indications: Pulmonic insufficiency, syncope Other Information Study Quality: Adequate Conclusion Normal left ventricular wall thickness and chamber size. Estimated ejection fraction is 60%. Wall m otion is normal Normal right ventricular size and systolic function Both atria are normal in size There is no structural or hemodynamically significant valvular disease Conclusion: Normal echocardiogram Wall motion Left Ventricle The left ventricle is normal size. The left ventricular systolic function is normal. The left ventric ular ejection fraction is within the normal range. There is normal left ventricular wall thickness. T here is normal LV segmental wall motion. There is no ventricular septal defect visualized. LVEF is 60 %. Right Ventricle The right ventricle is normal size. The right ventricular systolic function is normal. Atria The left atrium size is normal. The right atrium size is normal. The interatrial septum is intact wit h no evidence for an atrial septal defect. Aortic Valve The aortic valve is normal in structure. Aortic valve is trileaflet. There is no aortic valvular sten osis. No aortic regurgitation is present. Mitral Valve The mitral valve is normal in structure. No evidence of mitral valve stenosis. Trace mitral regurgita tion. Tricuspid Valve The tricuspid valve is normal in structure. There is no tricuspid valve stenosis. Trace tricuspid reg urgitation. Pulmonic Valve The pulmonary valve is normal in structure. There is no pulmonic valvular stenosis. Trace pulmonic re gurgitation. Great Vessels The aortic root is normal in size. The ascending aorta is normal in size. Aortic arch is normal in ca liber. IVC is normal in size and collapses >50% with inspiration. Pericardium There is no pericardial effusion. 2D Dimensions IVSD d PLAX 0.58 cm F: 0.6-1.0 LV Vol A2C d MOD 79.6 mL LVPW d PLAX 0.60 cm F: 0.6 - 1.0 LV Vol A4C d MOD 105.5 mL LVID d PLAX 4.77 cm F: 3.8 - 5.2 LA vol/ BSA A2C s A-L 12.9 mL/m2 LVDs 3.30 cm F: 2.2 - 3.5 LA vol/ BSA A4C s A-L 18.5 mL/m2 Ao Root d 2.27 cm F: 2.7 - 3.3 LA Vol/ BSA Biplane s A-L 18.2 mL/m2 RA Area A4C 12.60 cm2 LA Area A4C s MOD 13.67 cm2 RA Vol/ BSA A4C s A-L 16.2 mL/m2 LA Area A2C s MOD 9.66 cm2 Ao Asc Diam d 2.54 cm F: 2.3 - 3.1 LV EF A4C MOD 58.1 % LV EF Teichholz 57.3 % LV EF A2C MOD 59.8 % LVEF (Butts's) 58.10 % F: 54 - 74 LV EF Biplane MOD 58.1 % LV Volume 73.35 mL F: 46 - 106 SV 53.80 mL LV Volume Index 42.89 mL/m2 F: 29 - 61 SV Index 31.44 mL/m2 LV Vol Biplane MOD 92.6 mL FS 30.05 % M-Mode TAPSE 1.63 cm (M/F) >1.7 LV Diastology MV E' medial 0.189 (>0.07 m/s) E/A Ratio 3.6 LV E/e MED 4.80 (<14) MV E Vmax 0.91 (0.4-1.3 m/s) MV E' lateral 0.196 (>0.1 m/s) MV A Vmax 0.25 (0.4-1.3 m/s) LV E/e LAT 4.60 (<14) MV E/A Ratio 3.25 MV E/E' medial 4.80 MV E/E' lateral 4.64 Aortic Valve LVOT Area 3.14 cm2 AoV Area Vmax 2.57 cm2 LVOT Vmax 1.17 m/s AoV Area/ BSA (Vmax) 1.50 cm2/m2 LVOT Mean Isaiah. 0.70 m/s DENNIS Mean Isaiah. 2.18 cm2 LVOT Peak Grad 5.4 mmHg DENNIS Mean Isaiah. Index 1.27 cm2/m2 LVOT Mean Grad 2.4 mmHg LVOT VTI 0.225 m LVOT Diam s 2.00 cm AoV Vmax 1.43 m/s Velocity Ratio 0.81 AoV Mean Isaiah. 1.01 m/s AoV Peak Grad 8.2 mmHg LVOT SV 70.84 mL AoV Mean Grad 4.5 mmHg AoV VTI 0.279 m AoV Area VTI 2.54 cm2 AoV Area/ BSA (VTI) 1.48 cm/m2 Mitral Valve MV DT 195 (160-240 msec) MV PHT 56 msec MV Area PHT 3.90 cm2 MV VTI 0.287 m MV Area VTI 2.47 (4.0-6.0 cm2) Pulmonary Valve PV Vmax 1.41 (0.5-1.5 m/s) RVOT Peak Gr. 2.32 mmHg PV Peak Grad 8.0 mmHg RVOT Mean Gr. 1.20 mmHg PV Mean Grad 4.4 mmHg RVOT VTI 0.169 m PV VTI 0.289 m RVOT Vmax 0.76 m/s
== END ==
PROVIDERS: PCP Family Medicine; Visit Provider Family Medicine
DX: R55 Syncope and collapse (principal)
CPT/HCPCS: 93306

== ENCOUNTER 2022-04-27 18:08 | Outpatient (REF) | payer MEDICAID, SELFPAY ==
[2022-04-27 21:41] LABS: Bacteria Few HPF (Negative); C & S Indicated? C&S Done As Ordered; Casts Negative LPF (Negative); Crystals Negative HPF (Negative); Epithelial Cells Few HPF (Negative); Mucus Negative (Negative); RBC 0-2 HPF (0-2); WBC >50 HPF (0-5)
[2022-04-29 12:36] LABS: COVID-19 RT-PCR UVMMC Result Negative (Negative)
== END 2022-04-27 18:09 | disposition home or self-care (01) ==
LOC: LBN 18:08
PROVIDERS: PCP Family Medicine; Visit Provider Physician Assistant Medical
DX: R11.2 Nausea with vomiting, unspecified (principal); Z20.822 Contact with and (suspected) exposure to COVID-19; R30.0 Dysuria
CPT/HCPCS: 87077; U0003; 81015; 87086; 87186

== ENCOUNTER 2022-05-26 18:03 | Emergency (ER) | payer MEDICAID, SELFPAY ==
[2022-05-26 18:16] VITALS: BP 125/76; PULSE 89; RESP 18; TEMP 37.1; O2SAT 96
--- NOTE | 2022-05-26 19:03 | W.ED.GENAD ---
Discharge Plan Disposition Patient Disposition: HOME Condition: Stable Discharge Details Clinical Impression: Cough, Bronchitis Primary Care Provider: Eric Singer ED Provider: Aide Torres Home Meds and New Rx's Prescriptions: New benzonatate 100 mg capsule 100 mg PO TID PRN (Reason: cough) Qty: 10 0RF Continued sumatriptan succinate 100 mg tablet See Rx Instructions PO .COMPLEX Qty: 9 11RF Rx Instructions: take 1 tab at onset of headache; if no relief, may repeat 1 tab after at least 2 hrs; max = 2 tabs/24 hrs PO medroxyprogesterone [Depo-Provera] 150 mg/mL syringe 150 mg IM Q12W Qty: 1 4RF (DME) nebulizer accessories Kit See Rx Instructions .ROUTE .MEDSUPPLY Qty: 1 0RF Rx Instructions: Please dispense tubing for nebulizer, and use as directed medroxyprogesterone [Depo-Provera] 150 mg/mL syringe 150 mg IM ONCE Qty: 1 0RF topiramate 50 mg tablet 50 mg PO QHS Qty: 90 3RF ondansetron 4 mg tablet,disintegrating 4 mg PO Q6H PRN (Reason: nausea and vomiting) Qty: 30 0RF Aristada 441 mg/1.6 mL suspension,extended rel syring 441 mg IM QMONTH flu vaccine [id number](6mos up) 60 mcg (15 mcg x 4)/0.5 mL suspension 0.5 ml IM ONCE Qty: 0.5 0RF Advair HFA 230-21 mcg/actuation HFA aerosol inhaler 2 puff inhalation BID Qty: 12 6RF montelukast [Singulair] 10 mg tablet 10 mg PO QHS Qty: 90 1RF hydroxyzine HCl 10 mg tablet 10 - 30 mg PO DAILY Rx Instructions: TAKE 1 TO 3 TABLETS BY MOUTH DAILY NEEDED FOR ANXIETY fluoxetine [Prozac] 20 mg capsule 20 mg PO DAILY ipratropium-albuterol 0.5 mg-3 mg(2.5 mg base)/3 mL solution for nebulization 3 ml inhalation QID PRN (Reason: wheezing) Qty: 90 1RF Rx Instructions: trial for acute exacerbation of asthma with pneumonia albuterol sulfate [ProAir HFA] 90 mcg/actuation HFA aerosol inhaler 2 puff Inhalation Q4H PRN Qty: 1 5RF amoxicillin 500 mg tablet 500 tab PO TID Label Comments: TAKE ONE TABLET BY MOUTH THREE TIMES A DAY mirtazapine 15 mg Tablet 15 mg PO QHS lithium carbonate 300 mg Tablet 300 mg PO QHS aripiprazole 10 mg Tablet 10 mg PO DAILY cetirizine [Zyrtec] 10 mg tablet 10 mg PO DAILY Qty: 30 0RF Discharge Instructions Instructions: Acute Bronchitis (ED), Acute Cough (ED) Additional Instructions: Drink plenty of fluids and get plenty of rest. Alternate tylenol and motrin as needed and directed for pain. A prescription for the cough medication Tessalon Perles have been sent electronically to your pharmacy to take as needed and directed for coughing. Use the albuterol inhaler as needed and directed for cough, wheezing or shortness of breath Your COVID test is pending. Please quarantine until your COVID test result is available and if confirmed to be negative. Follow-up with your primary care doctor in 1 week. Return to the emergency department with any worsening or new concerning symptoms. Discharge Data Discharge Date/Time-TO BE ENTERED AT DEPARTURE: 05/26/22 19:57 Discharge Physician: Aide Torres Medical Decision Making 26-year-old female presents with cough and difficulty breathing today. She states she was recently exposed to COVID and would like a COVID test. She denies any fever, chest pain, leg pain or swelling. She denies known and is on Depo shot. Vitals within normal limits. Patient coughing during exam. Normal TMs bilaterally. Normal oropharynx. Lungs clear throughout without wheezing or rhonchi. Oxygen saturation 97% on room air. Discussed with patient that her symptoms could be due to a viral URI with cough, acute bronchitis, COVID or pneumonia. Patient is declining chest x-ray as she feels that her symptoms are not due to pneumonia. She states she would like a COVID test. COVID swab obtained. Due to her cough and intermittent complaint of shortness of breath, will provide with albuterol inhaler and Tessalon perles. Advised to follow up with the primary care doctor for re-evaluation. Usual and customary return precautions given prior to discharge. Medical Records Medical records reviewed: Yes I reviewed the patient's medical records. HPI General Mode of arrival: ambulatory. Date/Time Provider Initiated Documentation: 05/26/22 19:03. Limitations to Documentation: no limitations. Information obtained by: patient. HPI Narrative: Patient is a 26-year-old female with a history of asthma, bronchitis, anxiety, depression who presents for cough and shortness of breath today. Patient states she was exposed to her brother within the last week he states he recently tested positive for COVID. Patient states her symptoms are started today. She states her cough is mainly been dry. She denies any known fever, nasal congestion, sore throat or chest pain. She has not taken any medication for symptoms. She states she is vaccinated for COVID including 1 booster. Related Data Home Medications Medication Instructions Recorded Confirmed nebulizer accessories #1 ea 08/17/19 05/16/22 hydroxyzine HCl 10 mg tablet 10 - 30 mg PO DAILY 08/03/20 05/26/22 fluoxetine 20 mg capsule (Prozac) 20 mg PO DAILY 11/07/20 05/26/22 aripiprazole 10 mg tablet 10 mg PO DAILY 08/17/21 05/26/22 lithium carbonate 300 mg tablet 300 mg PO QHS 08/17/21 05/26/22 mirtazapine 15 mg tablet 15 mg PO QHS 08/17/21 05/26/22 cetirizine 10 mg tablet (Zyrtec) 10 mg PO DAILY #30 tabs 08/18/21 05/26/22 ipratropium 0.5 mg-albuterol 3 mg 3 ml inhalation QID PRN wheezing 08/19/21 05/26/22 (2.5 mg base)/3 mL nebulization #90 mL soln albuterol sulfate 90 mcg/actuation 2 puff inhalation Q4H PRN ##1 01/12/22 05/26/22 aerosol inhaler (ProAir HFA) sumatriptan succinate 100 mg tablet See Rx Instructions PO .COMPLEX #9 02/07/22 05/26/22 tabs medroxyprogesterone 150 mg/mL 150 mg IM Q12W #1 mL 03/20/22 05/26/22 intramuscular syringe (Depo-Provera) aripiprazole lauroxil 441 mg/1.6 441 mg IM QMONTH 05/16/22 05/26/22 mL suspension, ext.rel. IM syringe (Aristada) ondansetron 4 mg disintegrating 4 mg PO Q6H PRN nausea and 05/16/22 05/26/22 tablet vomiting #30 tabs topiramate 50 mg tablet 50 mg PO QHS #90 tabs 05/16/22 05/26/22 fluticasone propionate 230 2 puff inhalation BID #12 grams 05/18/22 05/26/22 mcg-salmeterol 21 mcg/actuation HFA inhaler (Advair HFA) montelukast 10 mg tablet 10 mg PO QHS #90 tabs 05/18/22 05/26/22 (Singulair) amoxicillin 500 mg tablet 500 tab PO TID 05/26/22 05/26/22 benzonatate 100 mg capsule 100 mg PO TID PRN cough #10 caps 05/26/22 Previous Rx's Medication Instructions Recorded nebulizer accessories #1 ea 08/17/19 cetirizine 10 mg tablet (Zyrtec) 10 mg PO DAILY #30 tabs 08/18/21 ipratropium 0.5 mg-albuterol 3 mg 3 ml inhalation QID PRN wheezing 08/19/21 (2.5 mg base)/3 mL nebulization #90 mL soln albuterol sulfate 90 mcg/actuation 2 puff inhalation Q4H PRN ##1 01/12/22 aerosol inhaler (ProAir HFA) sumatriptan succinate 100 mg tablet See Rx Instructions PO .COMPLEX #9 02/07/22 tabs medroxyprogesterone 150 mg/mL 150 mg IM Q12W #1 mL 03/20/22 intramuscular syringe (Depo-Provera) ondansetron 4 mg disintegrating 4 mg PO Q6H PRN nausea and 05/16/22 tablet vomiting #30 tabs topiramate 50 mg tablet 50 mg PO QHS #90 tabs 05/16/22 fluticasone propionate 230 2 puff inhalation BID #12 grams 05/18/22 mcg-salmeterol 21 mcg/actuation HFA inhaler (Advair HFA) montelukast 10 mg tablet 10 mg PO QHS #90 tabs 05/18/22 (Singulair) benzonatate 100 mg capsule 100 mg PO TID PRN cough #10 caps 05/26/22 Allergies Allergy/AdvReac Type Severity Reaction Status Date / Time peanut Allergy Intermediate Swelling/Ed Verified 05/26/22 18:18 josy citalopram AdvReac Intermediate insomnia Verified 05/26/22 18:18 ultrasound gel Allergy Intermediate Itching Uncoded 05/26/22 18:18 General Stated Complaint: RespSymp CONOR: 3 Review of Systems All systems reviewed & are unremarkable except as noted in HPI and below Constitutional Constitutional: Reports as per HPI, Denies chills and Denies fever(s) Eyes Eyes: Denies blurry vision ENT Ears, Nose, Mouth, and Throat: Denies dizziness, Denies sore throat and Denies throat swelling Cardiovascular Cardiovascular: Denies chest pain and Reports dyspnea Respiratory Respiratory: Reports cough and Reports dyspnea Gastrointestinal Gastrointestinal: Denies abdominal pain, Denies diarrhea and Denies vomiting Genitourinary Genitourinary: Denies hematuria and Denies dysuria Musculoskeletal Musculoskeletal: Denies back pain and Denies numbness Integumentary/Breasts Skin/Breast: Denies lesions and Denies rash Neurologic Neurologic: Denies dizziness, Denies localized weakness and Denies numbness Allergic/Immunologic Allergic/Immunologic: Denies throat swelling [facility] All Active Problems (Updated 05/26/22 @ 19:08 by Aide Torres DO) Cough (Acute) Bronchitis (Acute) Nonspecific paroxysmal spell (Acute) Migraine headache without aura (Acute) Syncope and collapse (Acute) Contact dermatitis due to adhesive bandage (Acute) Delayed menses (Acute) Acute bronchospasm (Acute) Asthma (Chronic) Bronchitis (Acute) Severe major depression with psychotic features (Acute) Pain, dental (Acute) Contraceptive management (Acute) Status post dilation and curettage (Acute) Asthma (Chronic) Syncopal episodes (Chronic) a. With heart murmur for which she had a normal cardiac evaluation. 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 F/u echo in 5 years Depression (Chronic 01/24/15) 04/25 - 05/02/18 Inpatient [facility] (depression with suicidal ideation) Adjustment disorder with mixed anxiety and depressed mood (Chronic) per [facility] Mikayla cedillo Major depressive disorder, recurrent episode, severe (Chronic) per [facility] Mikayla cedillo Medical History Allergic rhinitis Alopecia (capitis) totalis Asthma Atopic dermatitis [id number] transgender person Preferred name: Teodora He/Him pronouns 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; anesthesia given to lower tooth Urinary tract infection requiring hospitalization Family History Mother Obstructive sleep apnea syndrome uses cpap hs Father Esophageal stricture Diabetes Sister Mental disorder Depression Brother Asthma Social History Smoking/Tobacco Use Status: Current-Occasional Tobacco Type: cigarettes Tobacco: How many years used: 1 Quit status: quit date established Smoking risk assessment performed?: Yes Alcohol Intake: former Drug use: Occasionally Substance use type: marijuana Details: few times a month; pt reports none on DOS 06/10/21 What type of physical activity do you participate in: walking Frequency: daily Seatbelt use: always Do you feel safe at home: Yes Do you feel safe in your relationship?: Yes Female Reproductive History Menstrual control method: progestin IUCD History History 2 Para 1 Hx # Term Pregnancies 1 Multiple births Hx # Pregnancies Ectopic pregnancies AB induced Hx Number of Living Children 1 AB spontaneous 1 Past Pregnancies Del. Date GA/Weeks # Preg Succ Route Wgt Sex Labor Lgth Anesthesia Location Prov Complic 03/03/16 39 No vaginal 2920.001 g Female Marjan 04/20/21 6 No KJ Exam Const General: cooperative, healthy appearing and no acute distress Orientation: alert, awake and oriented x3 HENMT Head: normal to inspection Ears: hearing grossly normal bilaterally, external ears normal and TM's normal bilaterally General nose exam: external nose normal Face and sinus: normal facial exam Mouth: oral mucosae normal Teeth and gingiva: dentition normal Throat: posterior oropharynx normal Eyes General: appearance normal, both eyes and all related structures Neck Neck: normal visual inspection, trachea midline, supple, no anterior neck swelling and No submandibular swelling Resp Effort & Inspection: normal respiratory effort and able to speak in complete sentences Auscultation: clear to auscultation bilaterally, no rhonchi and no wheezes Cardio Rate: regular rate Rhythm: regular rhythm Skin General skin exam: no rashes or lesions noted Neuro General: patient alert, patient awake, patient oriented x3 and no meningeal signs Motor: muscle tone normal throughout Extrem General: normal to inspection and full ROM Psych Appearance: grossly normal Affect: normal affect Course Vital Signs Vital signs: Vital Signs Temperature 98.8 F 05/26/22 18:16 Pulse 89 05/26/22 18:16 Respiratory Rate 18 05/26/22 18:16 Blood Pressure 125/76 05/26/22 18:16 Pulse Oximetry 96 05/26/22 18:16 Temperature 98.8 F 05/26/22 18:16 Temperature Source Oral 05/26/22 18:16 Pulse 89 05/26/22 18:16 Respiratory Rate 18 05/26/22 18:16 Blood Pressure 125/76 05/26/22 18:16 Blood Pressure Position Sitting 05/26/22 18:16 Pulse Oximetry 96 05/26/22 18:16 Oxygen Delivery Method Room Air 05/26/22 18:16 Oxygen Flow Rate 0 05/26/22 18:16 Comment 05/26/22 18:16
[2022-05-26] MEDS: Benzonatate 100 MG CAP 200 MG PO (19:10)
[2022-05-26] MEDS: Inhaler, Assist Device 1 EACH MC (19:10)
[2022-05-26] MEDS: Albuterol HFA 8 GM 60 PUFF INH IH (19:10)
[2022-05-28 12:22] LABS: COVID-19 RT-PCR UVMMC Result Negative (Negative)
--- NOTE | 2022-05-28 13:03 | NUR.NOTE ---
Patient notified of negative Covid results.
== END 2022-05-26 19:57 | disposition home or self-care (01) ==
PROVIDERS: Emergency Provider Physician Assistant; PCP Family Medicine
DX: J40 Bronchitis, not specified as acute or chronic (principal); F17.210 Nicotine dependence, cigarettes, uncomplicated; Z20.822 Contact with and (suspected) exposure to COVID-19
CPT/HCPCS: 94640; 99283; U0003; 99284

== ENCOUNTER 2022-05-29 07:29 | Emergency (ER) | payer MEDICAID, SELFPAY ==
[2022-05-29] VITALS (16 sets, daily range): BP systolic 101–121; BP diastolic 62–80; PULSE 90–104; RESP 4–28; TEMP 36.5; O2SAT 96–100
--- NOTE | 2022-05-29 08:15 | DI.RAD_ITS ---
Exam(s) XR PORTABLE CHEST AP EXAM: XR PORTABLE CHEST AP CLINICAL HISTORY: cough and shortness of breath. TECHNIQUE: 2D digital imaging was performed. COMPARISON: CR,XR XR PORTABLE CHEST AP from 07/24/2021 FINDINGS: Single AP portable view. Heart size is upper normal. The mediastinum is not widened. Lungs are clear. No infiltrates nor obvious pleural effusions. IMPRESSION: No acute pulmonary findings on this single AP portable view of the chest. DATA REPOSITORY: RADIATION DOSE DELIVERED: All CT scans at this facility use at least one of these dose optimization techniques: automated exposure control; mA and/or kV adjustment per patient size (includes targeted e xams where dose is matched to clinical indication); or iterative reconstruction.
[2022-05-29] MEDS: Albuterol/Ipratropium 3 ML UPD VIAL UPD ×2 (08:19→09:26)
[2022-05-29] MEDS: Dexamethasone 10 MG/ML VIAL PO (08:38)
[2022-05-29] MEDS: Albuterol/Ipratropium 3 ML UPD VIAL (08:38)
[2022-05-29 08:53] LABS: Source Nasal/Nares
[2022-05-29 09:23] LABS: COVID-19 PCR Negative (Negative)
[2022-05-29] MEDS: Lidocaine 1% Multi-Dose 20 ML VIAL IJ (09:26)
--- NOTE | 2022-05-29 13:30 | ED.GENADUL_ITS ---
Discharge Plan Disposition Patient Disposition: HOME Condition: Stable Discharge Details Clinical Impression: Bronchitis Primary Care Provider: Eric Singer ED Provider: Daphnie Carson Home Meds and New Rx's Prescriptions: New prednisone 20 mg tablet 20 mg PO DAILY Qty: 5 0RF Continued sumatriptan succinate 100 mg tablet See Rx Instructions PO .COMPLEX Qty: 9 11RF Rx Instructions: take 1 tab at onset of headache; if no relief, may repeat 1 tab after at least 2 hrs; max = 2 tabs/24 hrs PO medroxyprogesterone [Depo-Provera] 150 mg/mL syringe 150 mg IM Q12W Qty: 1 4RF azithromycin 250 mg tablet See Rx Instructions PO .COMPLEX Qty: 6 0RF Rx Instructions: For 250 mg dose pack: take 500 mg today (day 1), then 250 mg for 4 days (days 2-5) PO prednisone 20 mg tablet 20 mg PO DAILY Qty: 5 0RF (DME) nebulizer accessories Kit See Rx Instructions .ROUTE .MEDSUPPLY Qty: 1 0RF Rx Instructions: Please dispense tubing for nebulizer, and use as directed medroxyprogesterone [Depo-Provera] 150 mg/mL syringe 150 mg IM ONCE Qty: 1 0RF topiramate 50 mg tablet 50 mg PO QHS Qty: 90 3RF ondansetron 4 mg tablet,disintegrating 4 mg PO Q6H PRN (Reason: nausea and vomiting) Qty: 30 0RF Aristada 441 mg/1.6 mL suspension,extended rel syring 441 mg IM QMONTH flu vaccine [id number](6mos up) 60 mcg (15 mcg x 4)/0.5 mL suspension 0.5 ml IM ONCE Qty: 0.5 0RF Advair HFA 230-21 mcg/actuation HFA aerosol inhaler 2 puff inhalation BID Qty: 12 6RF montelukast [Singulair] 10 mg tablet 10 mg PO QHS Qty: 90 1RF hydroxyzine HCl 10 mg tablet 10 - 30 mg PO DAILY Rx Instructions: TAKE 1 TO 3 TABLETS BY MOUTH DAILY NEEDED FOR ANXIETY fluoxetine [Prozac] 20 mg capsule 20 mg PO DAILY ipratropium-albuterol 0.5 mg-3 mg(2.5 mg base)/3 mL solution for nebulization 3 ml inhalation QID PRN (Reason: wheezing) Qty: 90 1RF Rx Instructions: trial for acute exacerbation of asthma with pneumonia albuterol sulfate [ProAir HFA] 90 mcg/actuation HFA aerosol inhaler 2 puff Inhalation Q4H PRN Qty: 1 5RF benzonatate 100 mg capsule 100 mg PO TID PRN (Reason: cough) Qty: 10 0RF mirtazapine 15 mg Tablet 15 mg PO QHS lithium carbonate 300 mg Tablet 300 mg PO QHS aripiprazole 10 mg Tablet 10 mg PO DAILY cetirizine [Zyrtec] 10 mg tablet 10 mg PO DAILY Qty: 30 0RF Discharge Instructions Instructions: Acute Bronchitis (ED) Additional Instructions: take your antibiotics take 40 mg of prednisone daily, you are currently taking 20, jacqueline written you a new prescription regular fluids recheck in 24 to 48 hours return earlier with new or worsening complaints have a nebulizer treatment or albuterol 2 puffs every 4 hours talk to your doctor about your options to stop smoking Referrals: Eric Singer DO [Primary Care Provider] - Medical Decision Making Please follow-up with your primary care physician in 24 to 48 hours Take 40 mg of prednisone daily Use your albuterol every 4 hours Patient with marked improvement, resting comfortably in room at time of reassessment Considered pulmonary embolism and more ominous pathology however given patient's improved symptoms with symptomatic asthma regimen, I suspect that this is asthma related Long discussion regarding smoking cessation Return precautions discussed and patient expressed understanding Chest x-ray per radiology interpretation and my review did not show evidence of acute abnormality Medical Records Medical records reviewed: Yes I reviewed the patient's medical records. Lab Data Lab results reviewed: Yes I reviewed the patient's lab results. HPI General Date/Time Provider Initiated Documentation: 05/29/22 07:35 . HPI Narrative: This 26-year-old female with history of bronchitis and asthma presents with re port of shortness of breath and cough with runny nose that have been present for the past 4 days. Patient states she was seen by her primary care physician initially and placed on azithromycin and prednisone. She has been using her prescribed inhalers regularly. She states she was started on Tessalon Perles yesterday. She presents today secondary to persistent shortness of breath, cough. She denies any chest discomfort. She denies any calf pain or swelling. She is on testosterone and this is not a new med for her in the past year. She states this feels like her typical asthma triggered by a cold per patient. She states her brother has COVID. She has had 1 negative COVID test since her symptoms began reportedly. She denies any fever or chills. She has an type of surgery for long drives. She does smoke tobacco on a daily basis. Related Data Home Medications Medication Instructions Recorded Confirmed nebulizer accessories #1 ea 08/17/19 05/29/22 hydroxyzine HCl 10 mg tablet 10 - 30 mg PO DAILY 08/03/20 05/29/22 fluoxetine 20 mg capsule (Prozac) 20 mg PO DAILY 11/07/20 05/29/22 aripiprazole 10 mg tablet 10 mg PO DAILY 08/17/21 05/29/22 lithium carbonate 300 mg tablet 300 mg PO QHS 08/17/21 05/29/22 mirtazapine 15 mg tablet 15 mg PO QHS 08/17/21 05/29/22 cetirizine 10 mg tablet (Zyrtec) 10 mg PO DAILY #30 tabs 08/18/21 05/29/22 ipratropium 0.5 mg-albuterol 3 mg 3 ml inhalation QID PRN wheezing 08/19/21 05/29/22 (2.5 mg base)/3 mL nebulization #90 mL soln albuterol sulfate 90 mcg/actuation 2 puff inhalation Q4H PRN ##1 01/12/22 05/29/22 aerosol inhaler (ProAir HFA) sumatriptan succinate 100 mg tablet See Rx Instructions PO .COMPLEX #9 02/07/22 05/29/22 tabs medroxyprogesterone 150 mg/mL 150 mg IM Q12W #1 mL 03/20/22 05/29/22 intramuscular syringe (Depo-Provera) aripiprazole lauroxil 441 mg/1.6 441 mg IM QMONTH 05/16/22 05/29/22 mL suspension, ext.rel. IM syringe (Aristada) ondansetron 4 mg disintegrating 4 mg PO Q6H PRN nausea and 05/16/22 05/29/22 tablet vomiting #30 tabs topiramate 50 mg tablet 50 mg PO QHS #90 tabs 05/16/22 05/29/22 fluticasone propionate 230 2 puff inhalation BID #12 grams 05/18/22 05/29/22 mcg-salmeterol 21 mcg/actuation HFA inhaler (Advair HFA) montelukast 10 mg tablet 10 mg PO QHS #90 tabs 05/18/22 05/29/22 (Singulair) benzonatate 100 mg capsule 100 mg PO TID PRN cough #10 caps 05/26/22 05/29/22 azithromycin 250 mg tablet See Rx Instructions PO .COMPLEX #6 05/28/22 05/29/22 tabs prednisone 20 mg tablet 20 mg PO DAILY #5 tabs 05/28/22 05/29/22 prednisone 20 mg tablet 20 mg PO DAILY #5 tabs 05/29/22 Previous Rx's Medication Instructions Recorded nebulizer accessories #1 ea 08/17/19 cetirizine 10 mg tablet (Zyrtec) 10 mg PO DAILY #30 tabs 08/18/21 ipratropium 0.5 mg-albuterol 3 mg 3 ml inhalation QID PRN wheezing 08/19/21 (2.5 mg base)/3 mL nebulization #90 mL soln albuterol sulfate 90 mcg/actuation 2 puff inhalation Q4H PRN ##1 01/12/22 aerosol inhaler (ProAir HFA) sumatriptan succinate 100 mg tablet See Rx Instructions PO .COMPLEX #9 02/07/22 tabs medroxyprogesterone 150 mg/mL 150 mg IM Q12W #1 mL 03/20/22 intramuscular syringe (Depo-Provera) ondansetron 4 mg disintegrating 4 mg PO Q6H PRN nausea and 05/16/22 tablet vomiting #30 tabs topiramate 50 mg tablet 50 mg PO QHS #90 tabs 05/16/22 fluticasone propionate 230 2 puff inhalation BID #12 grams 05/18/22 mcg-salmeterol 21 mcg/actuation HFA inhaler (Advair HFA) montelukast 10 mg tablet 10 mg PO QHS #90 tabs 05/18/22 (Singulair) benzonatate 100 mg capsule 100 mg PO TID PRN cough #10 caps 05/26/22 azithromycin 250 mg tablet See Rx Instructions PO .COMPLEX #6 05/28/22 tabs prednisone 20 mg tablet 20 mg PO DAILY #5 tabs 05/28/22 prednisone 20 mg tablet 20 mg PO DAILY #5 tabs 05/29/22 Allergies Allergy/AdvReac Type Severity Reaction Status Date / Time peanut Allergy Intermediate Swelling/Ed Verified 05/29/22 07:40 josy citalopram AdvReac Intermediate insomnia Verified 05/29/22 07:40 ultrasound gel Allergy Intermediate Itching Uncoded 05/29/22 07:40 General Stated Complaint: RespSymp CONOR: 3 Review of Systems All systems reviewed & are unremarkable except as noted in HPI and below PFSH All Active Problems (Updated 05/29/22 @ 10:31 by DALLAS Zhang) Bronchitis (Acute) Cough (Acute) Bronchitis (Acute) Nonspecific paroxysmal spell (Acute) Migraine headache without aura (Acute) Syncope and collapse (Acute) Contact dermatitis due to adhesive bandage (Acute) Delayed menses (Acute) Acute bronchospasm (Acute) Asthma (Chronic) Bronchitis (Acute) Severe major depression with psychotic features (Acute) Pain, dental (Acute) Contraceptive management (Acute) Status post dilation and curettage (Acute) Asthma (Chronic) Syncopal episodes (Chronic) a. With heart murmur for which she had a normal cardiac evaluation. 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 F/u echo in 5 years Depression (Chronic 01/24/15) 04/25 - 05/02/18 Inpatient [facility] (depression with suicidal ideation) Adjustment disorder with mixed anxiety and depressed mood (Chronic) per [facility] Mikayla cedillo Major depressive disorder, recurrent episode, severe (Chronic) per [facility] Mikayla cedillo Medical History Allergic rhinitis Alopecia (capitis) totalis Asthma Atopic dermatitis [id number] transgender person Preferred name: Teodora He/Him pronouns 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; anesthesia given to lower tooth Urinary tract infection requiring hospitalization Family History Mother Obstructive sleep apnea syndrome uses cpap hs Father Esophageal stricture Diabetes Sister Mental disorder Depression Brother Asthma Social History Smoking/Tobacco Use Status: Current-Occasional Tobacco Type: cigarettes Tobacco: How many years used: 1 Quit status: quit date established Smoking risk assessment performed?: Yes Alcohol Intake: former Drug use: Occasionally Substance use type: marijuana Details: few times a month; pt reports none on DOS 06/10/21 What type of physical activity do you participate in: walking Frequency: daily Seatbelt use: always Do you feel safe at home: Yes Do you feel safe in your relationship?: Yes Female Reproductive History Menstrual control method: progestin IUCD History History 2 Para 1 Hx # Term Pregnancies 1 Multiple births Hx # Pregnancies Ectopic pregnancies AB induced Hx Number of Living Children 1 AB spontaneous 1 Past Pregnancies Del. Date GA/Weeks # Preg Succ Route Wgt Sex Labor Lgth Anesth esia Location Prov Complic 03/03/16 39 No vaginal 2920.001 g Female Kelvin it 04/20/21 6 No KJ Exam Const General: cooperative Eyes Sclera: sclerae normal Resp Effort & Inspection: audible wheezes Auscultation: rhonchi Cardio Rate: tachycardic Rhythm: regular rhythm Neuro General: patient alert and patient oriented x3 Extrem Other: No calf pain or tenderness, distal pulses intact Course Vital Signs Vital signs: Vital Signs Temperature 36.5 C 05/29/22 07:36 Pulse 104 H 05/29/22 07:36 Respiratory Rate 28 H 05/29/22 07:36 Blood Pressure 101/80 05/29/22 07:36 Pulse Oximetry 98 05/29/22 07:36 Temperature 36.5 C 05/29/22 11:01 Temperature Source Oral 05/29/22 11:01 Pulse 90 05/29/22 11:01 Respiratory Rate 16 05/29/22 11:01 Respiratory Effort Labored 05/29/22 07:41 Respiratory Depth Shallow 05/29/22 07:41 Blood Pressure 121/62 05/29/22 11:01 Blood Pressure Position Sitting 05/29/22 07:36 Pulse Oximetry 97 05/29/22 11:01 Oxygen Delivery Method Room Air 05/29/22 11:01 Oxygen Flow Rate 0 05/29/22 11:01 Pain Level 0 05/29/22 11:01 Lab/Test Results Lab/Test Results: Laboratory Tests Range/Units 05/29/22 08:50 COVID-19 Source Nasal/Nares SARS-CoV-2 (PCR) (Negative) Negative
== END 2022-05-29 11:08 | disposition home or self-care (01) ==
PROVIDERS: Emergency Provider Physician Assistant; PCP Family Medicine
DX: J40 Bronchitis, not specified as acute or chronic (principal); I26.99 Other pulmonary embolism without acute cor pulmonale; J45.909 Unspecified asthma, uncomplicated; F17.210 Nicotine dependence, cigarettes, uncomplicated; Z79.51 Long term (current) use of inhaled steroids; Z79.52 Long term (current) use of systemic steroids; Z20.822 Contact with and (suspected) exposure to COVID-19
CPT/HCPCS: 87635; 99283; 71045; 99284; J1100; J3490; J7620

== ENCOUNTER 2022-06-07 04:33 | Emergency (ER) | payer MEDICAID, SELFPAY ==
[2022-06-07 04:38] VITALS: BP 127/112; PULSE 102; RESP 18; TEMP 36.9; O2SAT 96
--- NOTE | 2022-06-07 04:38 | ED.GENADUL_ITS ---
Discharge Plan Disposition Patient Disposition: HOME Condition: Good Discharge Details Clinical Impression: URI with cough and congestion, Asthma Primary Care Provider: Eric Singer ED Provider: Sea Gamino Home Meds and New Rx's Prescriptions: New prednisone 20 mg tablet See Taper PO DAILY Qty: 14 0RF Taper: Prednisone 20mg taper 40 mg Daily for 3 Days and 0 Hour 20 mg Daily for 4 Days and 0 Hour 10 mg Daily for 4 Days and 0 Hour Continued sumatriptan succinate 100 mg tablet See Rx Instructions PO .COMPLEX Qty: 9 11RF Rx Instructions: take 1 tab at onset of headache; if no relief, may repeat 1 tab after at least 2 hrs; max = 2 tabs/24 hrs PO medroxyprogesterone [Depo-Provera] 150 mg/mL syringe 150 mg IM Q12W Qty: 1 4RF (DME) nebulizer accessories Kit See Rx Instructions .ROUTE .MEDSUPPLY Qty: 1 0RF Rx Instructions: Please dispense tubing for nebulizer, and use as directed topiramate 50 mg tablet 50 mg PO QHS Qty: 90 3RF ondansetron 4 mg tablet,disintegrating 4 mg PO Q6H PRN (Reason: nausea and vomiting) Qty: 30 0RF Aristada 441 mg/1.6 mL suspension,extended rel syring 441 mg IM QMONTH Advair HFA 230-21 mcg/actuation HFA aerosol inhaler 2 puff inhalation BID Qty: 12 6RF montelukast [Singulair] 10 mg tablet 10 mg PO QHS Qty: 90 1RF hydroxyzine HCl 10 mg tablet 10 - 30 mg PO DAILY Rx Instructions: TAKE 1 TO 3 TABLETS BY MOUTH DAILY NEEDED FOR ANXIETY fluoxetine [Prozac] 20 mg capsule 20 mg PO DAILY ipratropium-albuterol 0.5 mg-3 mg(2.5 mg base)/3 mL solution for nebulization 3 ml inhalation QID PRN (Reason: wheezing) Qty: 90 1RF Rx Instructions: trial for acute exacerbation of asthma with pneumonia albuterol sulfate [ProAir HFA] 90 mcg/actuation HFA aerosol inhaler 2 puff Inhalation Q4H PRN Qty: 1 5RF mirtazapine 15 mg Tablet 15 mg PO QHS lithium carbonate 300 mg Tablet 300 mg PO QHS aripiprazole 10 mg Tablet 10 mg PO DAILY cetirizine [Zyrtec] 10 mg tablet 10 mg PO DAILY Qty: 30 0RF benzonatate 100 mg capsule 100 mg PO TID PRN (Reason: cough) Qty: 20 0RF Discharge Instructions Instructions: Asthma (ED), Upper Respiratory Infection (ED) Additional Instructions: You were seen for worsening URI symptoms with cough after initially responding to previous treatment. Your oxygenation level is normal. Your lungs sound clear. Would not restart you on antibiotics at this point. Continue both your rescue inhaler as well as your maintenance inhalers for your asthma. We will place you back on prednisone and taper it over a longer period of time. You may use Tessalon for cough as needed. Repeat COVID swab has been sent. Rest and drink plenty of fluids. Follow-up with primary care next week. Return to the ED for chest pain, increased difficulty breathing, mental status changes, neurologic changes, persistent vomiting, other concerns. Stand Alone Forms: PENDING COVID-19 TESTING Medical Decision Making Patient returns with worsening URI type symptoms and cough once again after initial improvement. Lungs are clear with normal O2 saturation at 96. Afebrile and in no distress. Clear nasal discharge and harsh dry cough here. Already has both rescue and maintenance inhalers and encouraged to continue use of same. Will place back on prednisone with burst and taper over time. No antibiotics at this point. Refill Tessalon prescription to help with cough. Will retest for COVID. Follow-up with primary care next week. Return precautions given. Medical Records Medical records reviewed: Yes I reviewed the patient's medical records. HPI General Mode of arrival: EMS . Date/Time Provider Initiated Documentation: 06/07/22 04:36 . Limitations to Documentation: no limitations . Information obtained by: patient, EMS, RN notes reviewed and old records reviewed . HPI Narrative: Patient presents to ED with recurrence of nasal congestion, cough, difficulty breathing. Patient has been seen in the ED twice this month as well as by PCP twice. Has been on prednisone, azithromycin, Tessalon, rescue and maintenance inhalers. Tested negative for COVID. Had unremarkable chest x-ray. Seem to be getting better and then had recurrence of worsening symptoms over the last couple of days again. Possible tactile fever last night. Migraine headache with associated vomiting which is not unusual and not reason for visit. Nasal discharge is clear. Cough is nonproductive. Chest pain only with cough. Shortness of breath more so with exertion than at rest. Related Data Home Medications Medication Instructions Recorded Confirmed nebulizer accessories #1 ea 08/17/19 05/29/22 hydroxyzine HCl 10 mg tablet 10 - 30 mg PO DAILY 08/03/20 06/07/22 fluoxetine 20 mg capsule (Prozac) 20 mg PO DAILY 11/07/20 06/07/22 aripiprazole 10 mg tablet 10 mg PO DAILY 08/17/21 06/07/22 lithium carbonate 300 mg tablet 300 mg PO QHS 08/17/21 06/07/22 mirtazapine 15 mg tablet 15 mg PO QHS 08/17/21 06/07/22 cetirizine 10 mg tablet (Zyrtec) 10 mg PO DAILY #30 tabs 08/18/21 06/07/22 ipratropium 0.5 mg-albuterol 3 mg 3 ml inhalation QID PRN wheezing 08/19/21 06/07/22 (2.5 mg base)/3 mL nebulization #90 mL soln albuterol sulfate 90 mcg/actuation 2 puff inhalation Q4H PRN ##1 01/12/22 06/07/22 aerosol inhaler (ProAir HFA) sumatriptan succinate 100 mg tablet See Rx Instructions PO .COMPLEX #9 02/07/22 06/07/22 tabs medroxyprogesterone 150 mg/mL 150 mg IM Q12W #1 mL 03/20/22 06/07/22 intramuscular syringe (Depo-Provera) aripiprazole lauroxil 441 mg/1.6 441 mg IM QMONTH 05/16/22 06/07/22 mL suspension, ext.rel. IM syringe (Aristada) ondansetron 4 mg disintegrating 4 mg PO Q6H PRN nausea and 05/16/22 06/07/22 tablet vomiting #30 tabs topiramate 50 mg tablet 50 mg PO QHS #90 tabs 05/16/22 06/07/22 fluticasone propionate 230 2 puff inhalation BID #12 grams 05/18/22 06/07/22 mcg-salmeterol 21 mcg/actuation HFA inhaler (Advair HFA) montelukast 10 mg tablet 10 mg PO QHS #90 tabs 05/18/22 06/07/22 (Singulair) benzonatate 100 mg capsule 100 mg PO TID PRN cough #20 caps 06/07/22 prednisone 20 mg tablet See Taper PO DAILY #14 tabs 06/07/22 Previous Rx's Medication Instructions Recorded nebulizer accessories #1 ea 08/17/19 cetirizine 10 mg tablet (Zyrtec) 10 mg PO DAILY #30 tabs 08/18/21 ipratropium 0.5 mg-albuterol 3 mg 3 ml inhalation QID PRN wheezing 08/19/21 (2.5 mg base)/3 mL nebulization #90 mL soln albuterol sulfate 90 mcg/actuation 2 puff inhalation Q4H PRN ##1 01/12/22 aerosol inhaler (ProAir HFA) sumatriptan succinate 100 mg tablet See Rx Instructions PO .COMPLEX #9 02/07/22 tabs medroxyprogesterone 150 mg/mL 150 mg IM Q12W #1 mL 03/20/22 intramuscular syringe (Depo-Provera) ondansetron 4 mg disintegrating 4 mg PO Q6H PRN nausea and 05/16/22 tablet vomiting #30 tabs topiramate 50 mg tablet 50 mg PO QHS #90 tabs 05/16/22 fluticasone propionate 230 2 puff inhalation BID #12 grams 05/18/22 mcg-salmeterol 21 mcg/actuation HFA inhaler (Advair HFA) montelukast 10 mg tablet 10 mg PO QHS #90 tabs 05/18/22 (Singulair) benzonatate 100 mg capsule 100 mg PO TID PRN cough #20 caps 06/07/22 prednisone 20 mg tablet See Taper PO DAILY #14 tabs 06/07/22 Allergies Allergy/AdvReac Type Severity Reaction Status Date / Time peanut Allergy Intermediate Swelling/Ed Verified 06/07/22 04:40 josy citalopram AdvReac Intermediate insomnia Verified 06/07/22 04:40 ultrasound gel Allergy Intermediate Itching Uncoded 06/07/22 04:40 General CONOR: 3 Review of Systems Narrative: 01/20 Review of Systems completed and is negative except as stated above in HPI (Systems reviewed: Const, Resp, CV, GI, Neuro) PFSH All Active Problems (Updated 06/07/22 @ 05:06 by Sea Gamino MD) URI with cough and congestion (Acute) Bronchitis (Acute) Cough (Acute) Bronchitis (Acute) Nonspecific paroxysmal spell (Acute) Migraine headache without aura (Acute) Syncope and collapse (Acute) Contact dermatitis due to adhesive bandage (Acute) Delayed menses (Acute) Acute bronchospasm (Acute) Asthma (Chronic) Bronchitis (Acute) Severe major depression with psychotic features (Acute) Pain, dental (Acute) Contraceptive management (Acute) Status post dilation and curettage (Acute) Asthma (Chronic) Syncopal episodes (Chronic) a. With heart murmur for which she had a normal cardiac evaluation. 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 F/u echo in 5 years Depression (Chronic 01/24/15) 04/25 - 05/02/18 Inpatient [facility] (depression with suicidal ideation) Adjustment disorder with mixed anxiety and depressed mood (Chronic) per [facility] Mikayla cedillo Major depressive disorder, recurrent episode, severe (Chronic) per [facility] Mikayla cedillo Medical History Allergic rhinitis Alopecia (capitis) totalis Asthma Atopic dermatitis [id number] transgender person Preferred name: Teodora He/Him pronouns 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; anesthesia given to lower tooth Urinary tract infection requiring hospitalization Family History Mother Obstructive sleep apnea syndrome uses cpap hs Father Esophageal stricture Diabetes Sister Mental disorder Depression Brother Asthma Social History Smoking/Tobacco Use Status: Current-Occasional Tobacco Type: cigarettes Tobacco: How many years used: 1 Quit status: quit date established Smoking risk assessment performed?: Yes Alcohol Intake: former Drug use: Occasionally Substance use type: marijuana Details: few times a month; pt reports none on DOS 06/10/21 What type of physical activity do you participate in: walking Frequency: daily Seatbelt use: always Do you feel safe at home: Yes Do you feel safe in your relationship?: Yes Female Reproductive History Menstrual control method: progestin IUCD History History 2 Para 1 Hx # Term Pregnancies 1 Multiple births Hx # Pregnancies Ectopic pregnancies AB induced Hx Number of Living Children 1 AB spontaneous 1 Past Pregnancies Del. Date GA/Weeks # Preg Succ Route Wgt Sex Labor Lgth Anesth esia Location Prov Complic 03/03/16 39 No vaginal 2920.001 g Female Kelvin it 04/20/21 6 No KJ Exam Narrative Exam Narrative: Const: WDWN. NAD. HEENT: NC/AT. Normal facial exam. Normal TMs bilaterally. Clear nasal discharge. Normal oropharynx. Eyes: Normal conjunctiva and sclera. Neck: Supple. Trachea midline. Lungs: Normal respiratory effort. Lungs are clear. There are no adventitious breath sounds and there is good air exchange. Cor: RRR without murmur/gallop. Good radial pulses. Neuro: A+O x 3. Normal speech, mentation, gait. Cranial nerves II - XII grossly intact. No gross motor or sensory deficit. Ext: No C/C/E. Skin: Warm and dry without rash.
[2022-06-07] MEDS: Benzonatate 100 MG CAP PO (05:12)
[2022-06-07] MEDS: predniSONE 20 MG TAB 40 MG PO (05:12)
[2022-06-08 15:01] LABS: COVID-19 RT-PCR UVMMC Result Positive (Negative)
== END 2022-06-07 05:26 | disposition home or self-care (01) ==
PROVIDERS: Emergency Provider Emergency Medicine; PCP Family Medicine
DX: U07.1 COVID-19 (principal); J06.9 Acute upper respiratory infection, unspecified; J45.909 Unspecified asthma, uncomplicated; F17.210 Nicotine dependence, cigarettes, uncomplicated; Z79.51 Long term (current) use of inhaled steroids
CPT/HCPCS: 99283; U0003; 99284; J7512

== ENCOUNTER 2022-08-10 13:16 | Outpatient (CLI) | payer MEDICAID, SELFPAY ==
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
--- OUTSIDE RECORDS SUMMARY | 2022-08-10 13:17 | XMS_ITS | Clinical Summary ---
:1995 Author Organization [facility] [place] [address] Care Team Providers Name Role Phone Eric Singer DO Primary Care Provider Allergies Active Allergy Reactions Severity Noted Date Comments Cat/Feline Products Cis Free Text Allergy Rabbit Proteins. Medications Medication Sig Dispensed Refills Start Date End Date Status montelukast 5 MG = 1 0 02/28/2009 Active (SINGULAIR) 5 mg Tablet(s), PO, QHS chewable tablet fluticasone-salmeterol 1 INH, Inh, Twice 0 9 Active (ADVAIR DISKUS) 100-50 daily mcg/dose diskus inhaler triamcinolone 1 [place] ea nos, 0 02/28/2009 Active (NASACORT AQ) 55 mcg Nasal, Once daily nasal inhaler cetirizine (ZYRTEC) 10 10 MG = 1 0 02/28/2009 Active mg tablet Tablet(s), PO, QHS Levalbuterol Tartrate 1-2 puffs, Inh, 0 02/28/2009 Active (XOPENEX HFA) 45 Q4-6H PRN mcg/Actuation inhaler anthralin (PSORIATEC) Apply topically 50 g 0 06/14/2015 Active 1 % Cream daily. triamcinolone Apply topically 80 g 0 10/18/2015 Active (KENALOG) 0.1 % twice daily for CreamIndications: two weeks then Alopecia areata take a week off. As needed fexofenadine (SONIA) Take 1 tablet by 60 tablet 2 06/08/2016 Active 180 mg mouth 2 times TabletIndications: daily. Alopecia areata betamethasone Apply to scalp BID 60 mL 2 08/10/2016 Active dipropionate for 2 weeks. Take (DIPROLENE) 0.05 % 1 week off. Then LotionIndications: repeat. Alopecia areata Active Problems Problem Noted Date CIS - Asthma, rhinitis, eczema 09/24/2008 Overview: see Dr. Tucker's last note. Tanvi reynolds is a 13-year-old young lady, with short stature and mild persistent asthma , mild persistent allergic rhinitis, atopic dermatitis, with occasional eryth josy of the eyelids. We discussed allergen avoidance specific to sensitiza tions, and I have recommended strict dust mite avoidance, removal of cats fro m the home, and pollen avoidance. I have recommended Advair 100/50 one inhal ation twice daily, Singulair and Zyrtec everyday with intensification sea sonally with Zaditor and Nasacort. I reviewed thresholds for the care and an asthma care plan as well as peak flow monitoring. The patient received a peak flow meter and a spacer. A followup visit was requested for HARMEET visit to assess how she is doing on her therapy and asthma education in six to eight weeks with one of our nurse specialists. I requested a followup visi t with myself later this summer. I will be in touch by telephone after the nurse specialist visit. Thank you for the opportunity to partici eleuterio in the care of your patient. If I can provide any further assistance in her management, please do not hesitate to contact me. CIS - Short stature disorder 10/13/2006 Immunizations Name Administration Dates Next Due Influenza Vaccine, Whole 07/05/2008 Social History Tobacco Use Types Packs/Day Years Used Date Smoking Tobacco: Never Smokeless Tobacco: Never Sex Assigned at Date Recorded Not on file Plan of Treatment Health Maintenance Due Date Last Done Comments Hepatitis B vaccine (0-59 yrs) (1 of 3 - 3-dose 1995 series) Covid-19 Vaccine (#1) 01/24/1996 HIV screen 2013 Hepatitis C Screening 2013 Tdap adult 2014 Tetanus vaccine 2014 PAP Smear 2016 Influenza (Flu) vaccine (1 of - Influenza standard 05/10/2022 07/05/2008 series) Insurance Payer Benefit Plan / Subscriber ID Effective Dates Phone Addre ss Type Group [place] [id number] 2016-Artemio [phone] [address] [facility] nt [address] [facility] [id number] Care Teams Java Golden Gate Developer Relationship Specialty Start Date End Date Eric Singer DO PCP - General Family Medicine 08/12/[address] [place], [place] [id number]
--- OUTSIDE RECORDS SUMMARY | 2022-08-10 13:17 | XMS_ITS | Encounter Summary ---
:1995 Author Organization [facility] [place] [address] Care Team Providers Name Role Phone Jose Armando Ramos MD Primary Care Provider Encounter Details Date Type Department Care Team Description 11/24/2015 [facility] [address] [facility] [place] [address] [facility] [phone] [place], [place] [address] (Wo rk) Social History Tobacco Use Types Packs/Day Years Used Date Smoking Tobacco: Never Smokeless Tobacco: Never Sex Assigned at Date Recorded Not on file documented as of this encounter Miscellaneous Notes Telephone Encounter - Cassandra Holbrook LPN - 11/29/2015 9:37 AM EDT 2nd attempt to reach patient regarding medication refill. Patient unavailable and the mailbox was full, unable to leave a message for callback. Telephone Encounter - Cassandra Holbrook LPN - 11/24/2015 8:59 AM EDT Received Triamcinolone refill request via fax for alopecia areata. 80g tube refilled on 10/18/15. Called patient to discuss, she was unavailable and the mailbox was full, unable to leave a message for callback, will try again at a later time. documented in this encounter Plan of Treatment Not on filedocumented as of this encounter Visit Diagnoses Not on filedocumented in this encounter Care Teams Field Professional Relationship Specialty Start Date End Date Jose Armando Ramos MD PCP - General 05/12/15 08/11/18 [address] [place] [address] documented as of this encounter
--- OUTSIDE RECORDS SUMMARY | 2022-08-10 13:17 | XMS_ITS | Encounter Summary ---
:1995 Author Organization [facility] [place] [address] Care Team Providers Name Role Phone Jose Armando Ramos MD Primary Care Provider Reason for Visit Reason Onset Date Comments Prior Authorization 07/10/2016 Encounter Details Date Type Department Care Team Description 07/10/2016 Telephone Dermatology at Yury Mejia MD Prior Authorization [facility] [address] [facility] [address] [place] [id number] [phone] (Wo rk) Social History Tobacco Use Types Packs/Day Years Used Date Smoking Tobacco: Never Smokeless Tobacco: Never Sex Assigned at Date Recorded Not on file documented as of this encounter Miscellaneous Notes Telephone Encounter - Chandrika Salvador - 07/11/2016 8:09 AM EDT Prior authorization for patients Fexofenadine denied. All documents faxed to medical records. Telephone Encounter - Chandrika Salvador - 07/10/2016 11:16 AM EDT Prior authorization request for patients Fexofenadine HCL sent to [place] [employer] on 07/10/16. documented in this encounter Plan of Treatment Not on filedocumented as of this encounter Visit Diagnoses Not on filedocumented in this encounter Care Teams Taxi Driver Relationship Specialty Start Date End Date Jose Armando Ramos MD PCP - General 05/12/15 08/11/18 [address] [place] [address] documented as of this encounter
--- OUTSIDE RECORDS SUMMARY | 2022-08-10 13:17 | XMS_ITS | Encounter Summary ---
:1995 Author Organization [facility] [place] [address] Care Team Providers Name Role Phone Jose Armando Ramos MD Primary Care Provider Reason for Visit Reason Comments Follow-up Encounter Details Date Type Department Care Team Description 08/10/2016 Office Visit [facility] [address] [facility] [place] [address] [place] [address] [phone] (Wo rk) Social History Tobacco Use Types Packs/Day Years Used Date Smoking Tobacco: Never Smokeless Tobacco: Never Sex Assigned at Date Recorded Not on file documented as of this encounter Patient Instructions Patient InstructionsDarlene Salas MD - 08/10/2016 9:30 AM EST Start applying minoxidil 5% (Rogaine for men) liquid to scalp once a day. Continue betamethasone dipropionate twice a day for 2 weeks, then take a week off. documented in this encounter Progress Notes Darlene Salas MD - 08/10/2016 9:30 AM EST DERMATOLOGY - ESTABLISHED PATIENT FOLLOW-UP Date of service: 08/10/2016 Tanvi Scruggs : 1995 Dermatology Resident Note: Darlene Salas MD, PGY4 Chief Complaint Patient presents with ??? Follow-up HPI: Ms. Tanvi Scruggs is a 21 y.o. female. This is an established patient here with her mother and baby, last seen by me on 06/08/2016. She presents today for follow up of alopecia areata and reportsthat she is starting to have regrowth. She is currently using betamethasone lotion for two weeks on and one week off. Unable to get fexofenadine due to lack of insurance coverage. Shaved her head and the hair is coming in fairly evenly. Skin History: Alopecia areata H/o negative syphylis antibody and normal TSH Patient Active Problem List Diagnosis Code ??? CIS - Asthma, rhinitis, eczema ??? CIS - Short stature disorder Major past medical/surgical history from patient's perspective: (not reviewed with pt today) Migraines ?? Pre-Procedure Checklist: Pacemaker/defibrillator: No Allergy to lidocaine or epinephrine: No : Yes Do we have your permission to leave a voicemail with biopsy results and other detailed health information? Yes Current Outpatient Prescriptions Medication Sig Dispense Refill ??? fexofenadine (SONIA) 180 mg Tablet Take 1 tablet by mouth 2 times daily. 60 tablet 2 ??? betamethasone dipropionate (DIPROLENE) 0.05 % Lotion Apply to scalp BID for 2 weeks. Take 1 weekoff. Then repeat. 60 mL 2 ??? triamcinolone (KENALOG) 0.1 % Cream Apply topically twice daily for two weeks then take a week off. As needed 80 g 0 ??? anthralin (PSORIATEC) 1 % Cream Apply topically daily. 50 g PRN ??? montelukast (SINGULAIR) 5 mg chewable tablet 5 MG = 1 Tablet(s), PO, QHS ??? fluticasone-salmeterol (ADVAIR DISKUS) 100-50 mcg/dose diskus inhaler 1 INH, Inh, Twice daily ??? triamcinolone (NASACORT AQ) 55 mcg nasal inhaler 1 [place] ea nos, Nasal, Once daily ??? cetirizine (ZYRTEC) 10 mg tablet 10 MG = 1 Tablet(s), PO, QHS ??? Levalbuterol Tartrate (XOPENEX HFA) 45 mcg/Actuation inhaler 1-2 puffs, Inh, Q4-6H PRN No current facility-administered medications for this visit. Allergies Allergen Reactions ??? Cat/Feline Products ??? Cis Free Text Allergy Rabbit Proteins. Review of Systems: - General: Feels well. - Skin: As per HPI; no other skin concerns. Examination: - Constitutional: Patient was alert, well-appearing and in no noticeable distress. - Skin: Focused exam of the scalp was performed. Notable findings/Assessment/Plan: 1. Alopecia Areata: Significant interval improvement in hair density. Still with decreased hair density along the vertex scalp. - Start applying minoxidil 5% (Rogaine for men) liquid to scalp once a day. - Continue betamethasone dipropionate twice a day for 2 weeks, then take a week off. - Informed pt that fexofenadine may be an option going forward if needed and if expense is reasonable. - We discussed the unpredictable nature of alopecia areata and the potential for a waxing and waningcourse. Follow-up: RTC PRN. I, Trudi Jenkins, CECE, am documenting this encounter acting as the scribe for and in the presenceof Dr. Darlene Salas. I performed the above scribed service and agree with the accuracy of the documentation of this encounter. Darlene Salas MD, PGY4 Resident in Dermatology [facility] Patient seen and evaluated with staff ups driver: Pearl Hayes MD Section of Dermatology [facility] Pearl Hayes MD - 08/10/2016 9:30 AM EST I directly supervised Dr. Salas in the care of this patient. I saw and evaluated this patient with Dr. Salas. She presented the history and physical exam details to me, then we saw the patient together and I confirmed these findings. I agree with details as written. My physical examination confirms Dr. Salas's findings. The assessment and plan were formulated in d iscussion with me at the time of visit and I agree with them as documented. PEARL HAYES MD Staff Physician documented in this encounter Plan of Treatment Not on filedocumented as of this encounter Visit Diagnoses Diagnosis Alopecia areata documented in this encounter Care Teams Plug Machine Operator Relationship Specialty Start Date End Date Jose Armando Ramos MD PCP - General 05/12/15 08/11/18 [address] [place] [address] documented as of this encounter
--- OUTSIDE RECORDS SUMMARY | 2022-08-10 13:17 | XMS_ITS | Encounter Summary ---
:1995 Author Organization [facility] [place] [address] Care Team Providers Name Role Phone Jose Armando Ramos MD Primary Care Provider Reason for Visit Reason Comments Follow-up Alopecia Encounter Details Date Type Department Care Team Description 06/08/2016 Office Visit Dermatology at Yury Mejia MD Alopecia areata [facility] [address] [facility] [place] [address] [place] [address] [phone] (Wo rk) Social History Tobacco Use Types Packs/Day Years Used Date Smoking Tobacco: Never Smokeless Tobacco: Never Sex Assigned at Date Recorded Not on file documented as of this encounter Patient Instructions Patient InstructionsAleyda Vu - 06/08/2016 10:30 AM EDT Rx: Betamethasone: apply to the scalp BID for 2 weeks, then take 1 week off, then apply to the scalpBID for another 2 weeks Take Sivan 180mg BID documented in this encounter Progress Notes Darlene Salas MD - 06/08/2016 10:30 AM EDT Images from the original note were not included. DERMATOLOGY - ESTABLISHED PATIENT FOLLOW-UP Date of service: 06/08/2016 Tanvi Scruggs : 1995 Dermatology Resident Note: Darlene Salas MD, PGY4 Chief Complaint Patient presents with ??? Follow-up Alopecia HPI: Ms. Tanvi Scruggs is a 20 y.o. female. This is an established patient here with her mother and baby daughter, last seen by Dr. Chiu on 06/14/15 who presents today for follow up of alopecia areata. She is not currently doing anything for her hair loss at this time. She states that her hair loss started over a year ago after she had a UTI. She has tried ILK injection to the eyebrows in the past. There was some hair regrowth but then it fell out a week later. She received a prescription for atopical steroid in the past but it was too expensive with her insurance, so she did not use it. Has tried wearing a wig in the past but it was uncomfortable. Has not had a scalp biopsy in the past. She reports that the hair loss is mainly on her scalp and eyebrows. Denies other sites of hair loss.Denies areas of pigment loss on her skin. Had some improvement of the hair loss while she was . Had TSH checked a year ago which was WNL. She usually feels cold. Denies constipation/diarrhea. Takes an antidepressant. Skin History: Alopecia areata, as above Patient Active Problem List Diagnosis Code ??? CIS - Asthma, rhinitis, eczema ??? CIS - Short stature disorder Major past medical/surgical history from patient's perspective: Migraines Pre-Procedure Checklist: Pacemaker/defibrillator: No Allergy to lidocaine or epinephrine: No : Yes Do we have your permission to leave a voicemail with biopsy results and other detailed health information? Yes Current Outpatient Prescriptions Medication Sig Dispense Refill ??? triamcinolone (KENALOG) 0.1 % Cream Apply [...] (NASACORT AQ) 55 mcg nasal inhaler 1 [place] ea nos, Nasal, Once daily ??? cetirizine (ZYRTEC) 10 mg tablet 10 MG = 1 Tablet(s), PO, QHS ??? Levalbuterol Tartrate (XOPENEX HFA) 45 mcg/Actuation inhaler 1-2 puffs, Inh, Q4-6H PRN No current facility-administered medications for this visit. Allergies Allergen Reactions ??? Cat/Feline Products ??? Cis Free Text Allergy Rabbit Proteins. Family History: None Social History: Occupation: [id number] mother of a baby girl. Smoking: Nonsmoker Review of Systems: - General: Feels well. No recent cold, fever or flu. - Endo: Often feels cold. Denies constipation/diarrhea. Takes an antidepressant. - Skin: As per HPI; no other skin concerns. Examination: - Constitutional: Patient was alert, well-appearing and in no noticeable distress. - Skin: An exam of the skin of the face and neck was performed. Notable findings/Assessment/Plan: 1. Diffuse alopecia areata: Widespread hairless patches throughout scalp, without scarring. - Discussed empiric treatment for favored diagnosis of alopecia areata as well as the possibility ofskin biopsy; pt prefers the former. Syphilis IgG was negative in the past. - Alopecia areata is sometimes associated with hypothyroidism; TSH was WNL a year ago. - Rx: betamethasone dipropionate 0.05% lotion BID to the scalp for 2 weeks, then take 1 week off. Repeat cycle. - Rx: fexofenadine 180mg PO BID. There are reports of efficacy using fexofenadine for alopecia areata in the literature (Jesus S et al. Two cases of alopecia areata responsive to fexofenadine. J Dermatol 2007;34:852-854). The following photos were obtained with patient consent: A detailed AVS was handed to the patient upon exiting the clinic RTC in 6 weeks for follow up, sooner if needed. Appointment scheduled upon exiting. Instructed to call if problems arise. I, Trudi Jenkins LPN and Aleyda Vu, Clinical Scribe, am documenting this encounter acting as the scribe for and in the presence of Dr. Darlene Salas. I performed the above scribed service and agree with the accuracy of the documentation of this encounter. Darlene Salas MD, PGY4 Resident in Dermatology [facility] Patient seen and evaluated with staff park services specialist: Pearl Hayes MD Section of Dermatology [facility] Pearl Hayes MD - 06/08/2016 10:30 AM EDT I directly supervised Dr. Salas in the [...] and I agree with them as documented. Morphology is somewhat unusual but could fit for diffuse alopecia areata. Discussed doing a biopsy to solidify this diagnosis, but patient declined. Will treat empirically for alopecia areata and if noresponse, consider revisiting the idea of biopsying. PEARL HAYES MD Staff Physician documented in this encounter Plan of Treatment Not on filedocumented as of this encounter Visit Diagnoses Diagnosis Alopecia areata documented in this encounter Care Teams Wheel And Caster Repairer Relationship Specialty Start Date End Date Jose Armando Ramos MD PCP - General 05/12/15 08/11/[address] [place], [place] [address] [place] [address] documented as of this encounter
--- OUTSIDE RECORDS SUMMARY | 2022-08-10 13:18 | XMS_ITS | Encounter Summary ---
:1995 Author Organization [facility] [place] [address] Care Team Providers Name Role Phone Jose Armando Ramos MD Primary Care Provider Reason for Visit Reason Comments Hair Loss Encounter Details Date Type Department Care Team Description 05/12/2015 Office Visit Dermatology at [facility] El[facility]al[facility] , [facility] [address] [place] [address] [address] [phone] [facility] [place] [place] [address] (Wo rk) Social History Tobacco Use Types Packs/Day Years Used Date Smoking Tobacco: Never Smokeless Tobacco: Never Sex Assigned at Date Recorded Not on file documented as of this encounter Progress Notes Sarmad Chiu MD - 05/12/2015 1:44 PM EDT DERMATOLOGY NEW PATIENT CLINIC NOTE Date of service: 05/12/2015 Name: Tanvi Scruggs Age: 19 y.o. Sex: female : 1995 Provider: Sarmad Chiu MD New patient to myself and to clinic. Seen in consultation at the request of Kamryn Norris M.D. for evaluation and management of hair loss. HPI Tanvi Scruggs is a 19 y.o. year old female is here today for sudden hair loss that began 3 weeks ago. Hair loss began with small, discreet, round patches on the scalp and later spread to eyebrows. She has not been previously treated. Here with mother Demi. - She began to take Celexa a few months ago. - Family history of thyroid disease. Patient tested negative within the past month and found to be euthyroid. SKIN HX: Eczema FAMILY SKIN HISTORY: No family history of any skin cancers. No family history of any skin conditions. SOCIAL HX; Here with mother Demi ADR: Allergies Allergen Reactions ??? Cat/Feline Products ??? Cis Free Text Allergy Rabbit Proteins. MEDS: Current Outpatient Prescriptions Medication Sig Dispense Refill ??? montelukast (SINGULAIR) 5 mg chewable tablet 5 MG = 1 Tablet(s), PO, QHS ??? fluticasone-salmeterol (ADVAIR DISKUS) 100-50 mcg/dose diskus inhaler 1 INH, Inh, Twice daily ??? triamcinolone (NASACORT AQ) 55 mcg nasal inhaler 1 [place] ea nos, Nasal, Once daily ??? cetirizine (ZYRTEC) 10 mg tablet 10 MG = 1 Tablet(s), PO, QHS ??? ketotifen (ZADITOR) 0.025 % ophthalmic solution 1 Drop(s), Ophthalmic, Twice daily PRN ??? Levalbuterol Tartrate (XOPENEX HFA) 45 mcg/Actuation inhaler 1-2 puffs, Inh, Q4-6H PRN No current facility-administered medications for this visit. ROS General: feeling well Skin: denies other skin complaints EXAM General: NAD, pleasant, cooperative Skin: A focused examination of scalp and forehead. Patient declined a full skin exam at this time. Significant skin findings: A. Assymetrical alopecia without inflammation or scarring. R>L, front > back. Right eyebrow nearly gone, left trimmed. ASSESSMENT/PLAN: A. Alopecia Areata - Discussed alopecia areata, its generally temporary nature, in roughly 85% of patients, and the possibility of recurrence. - Explained that it is idiopathic in nature and may be immunologic in origin. It has been thought farshad associated with stress or auto-immunity . - Treatment options discussed such as topical creams and Kenalog injections - Explained that when alopecia injections start to take effect, the hair usually grows in white at first, but then will turn its natural color. - Discussed areas that could be injected. Patient understands and would like to proceed with additional [place] Kenalog of eyebrows only Procedure: - Kenalog 0.5 mg/mL injected intralesionally, total 0.25 mL. Discussed indication for this procedureand potential side effects including ulceration and skin atrophy. 4 lesions: on the eyebrows. Rx: Triamcinolone lotion 0.1% applied twice daily for two weeks, then take a week off. Repeat as needed. [facility] At least half of this 40 minute appointment was spent [id number] in counseling with this patient. We discussed pathophysiology, diagnosis, treatment, concerns, expectations and follow-up with regard to the patient's diagnosis. I also addressed the patient's concerns and answered questions with regard to the above. FOLLOW-UP: 1 month: appointment scheduled upon exit. Patient instructed to call with questions or concerns. I am documenting this encounter acting as the scribe for and in the presence of Dr. Chiu: NIGEL CADE LPN and Daphnie Viera, Clinical Scribe I performed the above scribed service and agree with the accuracy of the documentation in this encounter. Sarmad Chiu MD Section of Dermatology [facility] documented in this encounter Plan of Treatment Not on filedocumented as of this encounter Visit Diagnoses Diagnosis Alopecia areata documented in this encounter Administered Medications Inactive Administered Medications - up to 3 most recent administrations Medication Order MAR Action Action Date Dose Rate Site triamcinolone acetonide (KENALOG) Given 05/12/2015 5:15 PM EDT 5 mg injection 5 mg 5 mg, Intra-Lesional, ONCE, 1 dose, On Adri 05/12/15 at 1500, Routine documented in this encounter Care Teams Abrasive Coating Machine Operator Relationship Specialty Start Date End Date Jose Armando Ramos MD PCP - General 05/12/15 08/11/18 [place] [address] documented as of this encounter
--- OUTSIDE RECORDS SUMMARY | 2022-08-10 13:18 | XMS_ITS | Encounter Summary ---
:1995 Author Organization [facility] [place] [address] Care Team Providers Name Role Phone Jose Armando Ramos MD Primary Care Provider Reason for Visit Reason Onset Date Comments Medication Refill 10/18/2015 Encounter Details Date Type Department Care Team Description 10/18/2015 Refill Dermatology at [facility] Sarmad Chiu MD Alopecia areata [address] [facility] [place] [address] [facility] [phone] [place], [place] [address] (Wo rk) Social History Tobacco Use Types Packs/Day Years Used Date Smoking Tobacco: Never Smokeless Tobacco: Never Sex Assigned at Date Recorded Not on file documented as of this encounter Plan of Treatment Not on filedocumented as of this encounter Visit Diagnoses Diagnosis Alopecia areata documented in this encounter Care Teams Lining Maker Relationship Specialty Start Date End Date Jose Armando Ramos MD PCP - General 05/12/15 08/11/[address] [place] [address] [address] [place], [place] [id number] documented as of this encounter
--- OUTSIDE RECORDS SUMMARY | 2022-08-10 13:19 | XMS_ITS | Encounter Summary ---
:1995 Author Organization [facility] Address [address] [place] [address] Care Team Providers Name Role Phone Jesse Benavidez MD Primary Care Provider Encounter Details Date Type Department Care Team Description 02/04/2020 Lab Requisition [facility] Outr Resulting Lab, Pathology & Laboratory Provider [facility] [address] [place] [address] Social History Tobacco Use Types Packs/Day Years Used Date Smoking Tobacco: Never Assessed Sex Assigned at Date Recorded Not on file documented as of this encounter Plan of Treatment Not on filedocumented as of this encounter Procedures Procedure Name Priority Date/Time Associated Diagnosis Comme nts COVID-19 TEST [facility] Today 02/04/2020 16:16 LAB PCR EDT COVID-19 TESTING Routine 02/04/2020 16:16 Results for this EDT procedure are i n the results section. documented in this encounter Results COVID-19 TEST [facility] LAB PCR (02/04/2020 16:16 EDT) Specimen Anatomical Location Collection Method Collection Time Received Time (Source) / Laterality / Volume Swab ENTIRE NASOPHARYNX 02/04/2020 16:16 02/03 / Unknown EDT 21:17 EDT Provider Outr Resulting Lab MICROBIOLOGY - GENERAL ORD ERABLES Performing Organization Address City/State/ZIP Code Phon e Number [facility] [address] [place] [address] SERVICES COVID-19 TESTING (02/04/2020 16:16 EDT) Analysis Performed At [facility] Time Signature COVID-19 Negative Negative 02/05/2020 [facility] MEDICAL rt-PCR Result 1:09 EDT CENTER LABORATORY SERVICES Comment: This test has not been FDA cleared or ap proved. This test has been authorized by FDA under an EUA for use by authorized laboratories. This test has been authorized only for detection of nucleic acid fro m 2019-nCoV, not for any other viruses o r pathogens. This test is only authorized for the duration of the declaration that circumstances exist justifying the authorization of emergency use of in vitro d iagnostic tests for detection and/or dariana gnosis of 2019-nCoV under section 564(b)(1) of Act, 21 U.S.C ?? 360bbb-3(b) (1), unless the authorization is terminated or revoked sooner. Negative results do not preclude 2019-nC oV infection and should not be used as the sole basis for treatment or other patient management decisions. Negative results must be combined with clinical observa tions, patient history, and epidemiologi rukhsana information. Performed on the [employer] instrument Performing Lab [place] [facility] Lab 02/05/2020 1:[address] [facility] SERVICES Specimen Anatomical Location Collection Method Collection Time Received Time (Source) / Laterality / Volume Swab ENTIRE NASOPHARYNX 02/04/2020 16:16 02/03 / Unknown EDT 21:17 EDT Provider Outr Resulting Lab MICROBIOLOGY - GENERAL ORD ERABLES Performing Organization Address City/State/ZIP Code Phon e Number [facility] [address] [place] [address] SERVICES documented in this encounter Visit Diagnoses Not on filedocumented in this encounter Additional Health Concerns Infection Onset Date Last Indicated Resolved Time COVID-19 06/07/2022 06/07/2022 06/27/2022 22:15 EDT documented as of this encounter Care Teams Cherry Pitter Relationship Specialty Start Date End Date Jesse Benavidez MD PCP - General 07/21/15 [place] [address] documented as of this encounter
--- OUTSIDE RECORDS SUMMARY | 2022-08-10 13:19 | XMS_ITS | Encounter Summary ---
:1995 Author Organization [facility] Address [address] [place] [address] Care Team Providers Name Role Phone Jesse Benavidez MD Primary Care Provider Encounter Details Date Type Department Care Team Description 08/17/2021 Lab Requisition [facility] Outr Resulting Lab, Pathology & Laboratory Provider [facility] [address] [place] [address] Social History Tobacco Use Types Packs/Day Years Used Date Smoking Tobacco: Never Assessed Sex Assigned at Date Recorded Not on file documented as of this encounter Plan of Treatment Not on filedocumented as of this encounter Procedures Procedure Name Priority Date/Time Associated Diagnosis Comme nts PTH INTACT Routine 08/17/2021 9:02 EST Results for this procedure are i n the results section . documented in this encounter Results PTH INTACT (08/17/2021 9:02 EST) athologist Signature Intact PTH 39 19 - 88 08/18/2021 [facility] MEDICAL pg/mL 10:33 EST CENTER LABORATORY SERVICES Specimen Anatomical Collection Method Collection Time Receive d Time (Source) Location / / Volume Laterality Blood VENOUS BLOOD / 08/17/2021 9:02 08/17/2021 Unknown EST 16:34 EST Provider Outr Resulting Lab CHEMISTRY & BLOOD GAS CHRISTIN PACK Performing Organization Address City/State/ZIP Code Phon e Number [facility] [address] [place] [address] SERVICES documented in this encounter Visit Diagnoses Not on filedocumented in this encounter Additional Health Concerns Infection Onset Date Last Indicated Resolved Time COVID-19 06/07/2022 06/07/2022 06/27/2022 22:15 EDT documented as of this encounter Care Teams Tow Motor Operator Relationship Specialty Start Date End Date Jesse Benavidez MD PCP - General 11/12/15 [address] [place] [id number] documented as of this encounter
--- OUTSIDE RECORDS SUMMARY | 2022-08-10 13:19 | XMS_ITS | Encounter Summary ---
:1995 Author Organization [facility] Address [address] [place] [address] Care Team Providers Name Role Phone Jesse Benavidez MD Primary Care Provider Encounter Details Date Type Department Care Team Description 04/28/2022 Lab Requisition [facility] Outr Resulting Lab, Pathology & Laboratory Provider [facility] [address] [place] [address] Social History Tobacco Use Types Packs/Day Years Used Date Smoking Tobacco: Never Assessed Sex Assigned at Date Recorded Not on file documented as of this encounter Plan of Treatment Not on filedocumented as of this encounter Procedures Procedure Name Priority Date/Time Associated Diagnosis Comme nts COVID-19 TEST [facility] Today 04/27/2022 14:06 LAB PCR EDT COVID-19 TESTING Routine 04/27/2022 14:06 Results for this EDT procedure are i n the results section. documented in this encounter Results COVID-19 TEST [facility] LAB PCR (04/27/2022 14:06 EDT) Specimen Anatomical Collection Method Collection Time Receive d Time (Source) Location / / Volume Laterality Swab 04/27/2022 14:06 04/28/2022 EDT 21:48 EDT Provider Outr Resulting Lab MICROBIOLOGY - GENERAL ORD ERABLES Performing Organization Address City/State/ZIP Code Phon e Number [facility] [address] [place] [address] SERVICES COVID-19 TESTING (04/27/2022 14:06 EDT) Analysis Performed At [facility] logist Time Signature COVID-19 Negative Negative 04/29/2022 [facility] MEDICAL rt-PCR Result 12:31 EDT CENTER LABORATORY SERVICES Comment: This test [...] tions, patient history, and epidemiologi rukhsana information. Testing was performed using the roseanne SA RS-CoV-2 assay ([employer] System[employer] on the Roseanne 6800 System Performing Lab Roseanne [address] [facility] 04/29/2022 12:31 E DT [facility] Lab LABORATORY SERVICES Specimen Anatomical Collection Method Collection Time Receive d Time (Source) Location / / Volume Laterality Swab 04/27/2022 14:06 04/28/2022 EDT 21:48 EDT Provider Outr Resulting Lab MICROBIOLOGY - GENERAL ORD ERABLES Performing Organization Address City/State/ZIP Code Phon e Number [facility] [address] [place] [address] SERVICES documented in this encounter Visit Diagnoses Not on filedocumented in this encounter Additional Health Concerns Infection Onset Date Last Indicated Resolved Time COVID-19 06/07/2022 06/07/2022 06/27/2022 22:15 EDT documented as of this encounter Care Teams Call Center Director Relationship Specialty Start Date End Date Jesse Benavidez MD PCP - General 07/21/15 [place] [address] documented as of this encounter
--- OUTSIDE RECORDS SUMMARY | 2022-08-10 13:19 | XMS_ITS | Encounter Summary ---
:1995 Author Organization Address [address] [place] [address] Care Team Providers Name Role Phone Jesse Benavidez MD Primary Care Provider Encounter Details Date Type Department Care Team Description 06/07/2022 Lab Requisition [facility] Center Outr Resulting Lab, Pathology & Laboratory Provider [facility] [address] [place] [id number] Social History Tobacco Use Types Packs/Day Years Used Date Smoking Tobacco: Never Assessed Sex Assigned at Date Recorded Not on file documented as of this encounter Plan of Treatment Not on filedocumented as of this encounter Procedures Procedure Name Priority Date/Time Associated Diagnosis Comme nts COVID-19 TEST [facility] Today 06/07/2022 5:07 EDT LAB PCR COVID-19 TESTING Routine 06/07/2022 5:07 EDT Resu lts for this procedure are i n the results section. documented in this encounter Results COVID-19 TEST [facility] LAB PCR (06/07/2022 5:07 EDT) Specimen Anatomical Collection Method Collection Time Receive d Time (Source) Location / / Volume Laterality Swab 06/07/2022 5:07 06/07/2022 EDT 19:08 EDT Provider Outr Resulting Lab MICROBIOLOGY - GENERAL ORD ERABLES Performing Organization Address City/State/ZIP Code Phon e Number [facility] CENTER LABORATORY [address] [place] [address] SERVICES (ABNORMAL) COVID-19 TESTING (06/07/2022 5:07 EDT) [facility] Method Time Signature COVID-19 Positive Negative 06/08/[address] [facility] MEDICAL rt-PCR Result (AA) 13:07 EDT CENTER LABORATORY SERVICES Comment: This test [...] the authorization is terminated or revoked sooner. Testing was performed using the roseanne SA RS-CoV-2 assay ([employer] on the Roseanne 6800 System Performing Lab Roseanne [address] [facility] 06/08/2022 13:07 E DT [facility] Lab LABORATORY SERVICES Specimen Anatomical Collection Method Collection Time Receive d Time (Source) Location / / Volume Laterality Swab 06/07/2022 5:07 06/07/2022 EDT 19:08 EDT Provider Outr Resulting Lab MICROBIOLOGY - GENERAL ORD ERABLES Performing Organization Address City/State/ZIP Code Phon e Number [facility] [address] [place] [address] SERVICES documented in this encounter Visit Diagnoses Not on filedocumented in this encounter Additional Health Concerns Infection Onset Date Last Indicated Resolved Time COVID-19 06/07/2022 06/07/2022 06/27/2022 22:15 EDT documented as of this encounter Care Teams Mechanical Product Engineer Relationship Specialty Start Date End Date Jesse Benavidez MD PCP - General 07/21/15 [place] [address] documented as of this encounter
--- OUTSIDE RECORDS SUMMARY | 2022-08-10 13:19 | XMS_ITS | Encounter Summary ---
:1995 Author Organization [facility] Address [address] [place] [address] Care Team Providers Name Role Phone Jesse Benavidez MD Primary Care Provider Encounter Details Date Type Department Care Team Description 05/27/2022 Lab Requisition [facility] Center Outr Resulting Lab, Pathology & Laboratory Provider [facility] [address] [place] [address] Social History Tobacco Use Types Packs/Day Years Used Date Smoking Tobacco: Never Assessed Sex Assigned at Date Recorded Not on file documented as of this encounter Plan of Treatment Not on filedocumented as of this encounter Procedures Procedure Name Priority Date/Time Associated Diagnosis Comme nts COVID-19 TEST [facility] Today 05/26/2022 19:10 LAB PCR EDT COVID-19 TESTING Routine 05/26/2022 19:10 Results for this EDT procedure are i n the results section. documented in this encounter Results COVID-19 TEST [facility] LAB PCR (05/26/2022 19:10 EDT) Specimen Anatomical Collection Method Collection Time Receive d Time (Source) Location / / Volume Laterality Swab 05/26/2022 19:10 05/27/2022 EDT 16:19 EDT Provider Outr Resulting Lab MICROBIOLOGY - GENERAL ORD ERABLES Performing Organization Address City/State/ZIP Code Phon e Number [facility] [address] [place] [address] SERVICES COVID-19 TESTING (05/26/2022 19:10 EDT) Analysis Performed At [facility] logist Time Signature COVID-19 Negative Negative 05/28/2022 [facility] MEDICAL rt-PCR Result 12:18 EDT CENTER LABORATORY SERVICES Comment: This test [...] performed using the roseanne SA RS-CoV-2 assay ([employer] System[employer] on the Roseanne 6800 System Performing Lab [address] [facility] 05/28/2022 12:18 E DT [facility] Lab LABORATORY SERVICES Specimen Anatomical Collection Method Collection Time Receive d Time (Source) Location / / Volume Laterality Swab 05/26/2022 19:10 05/27/2022 EDT 16:19 EDT Provider Outr Resulting Lab MICROBIOLOGY - GENERAL ORD ERABLES Performing Organization Address City/State/ZIP Code Phon e Number [facility] [address] [place] [address] SERVICES documented in this encounter Visit Diagnoses Not on filedocumented in this encounter Additional Health Concerns Infection Onset Date Last Indicated Resolved Time COVID-19 06/07/2022 06/07/2022 06/27/2022 22:15 EDT documented as of this encounter Care Teams Manager Strategic Marketing Relationship Specialty Start Date End Date Jesse Benavidez MD PCP - General 07/21/15 [place] [address] documented as of this encounter
--- OUTSIDE RECORDS SUMMARY | 2022-08-10 13:19 | XMS_ITS | Encounter Summary ---
:1995 Author Organization [facility] Address [address] [place] [address] Care Team Providers Name Role Phone Jesse Benavidez MD Primary Care Provider Encounter Details Date Type Department Care Team Description 02/20/2021 Lab Requisition [facility] Claudia Godinez E ncounter for other Pathology & ROUGHER [employer] general examination Laboratory Medicine [address] [place], [place] [address] [facility] [phone] [place], [place] [id number] Social History Tobacco Use Types Packs/Day Years Used Date Smoking Tobacco: Never Assessed Sex Assigned at Date Recorded Not on file documented as of this encounter Plan of Treatment Not on filedocumented as of this encounter Procedures Procedure Name Priority Date/Time Associated Diagnosis Comme nts PAP TEST Today 02/17/2021 14:30 EDT Encounter for other Results for this general examination procedur e are in the results section. documented in this encounter Results PAP TEST (02/17/2021 14:30 EDT) Component Value Ref Test Analysis Performed At [facility] Range Method Time Signature Specimens A. Cervix and/or 02/28/2021 [facility] Endocervix , 12:51 EDT CENTER ThinPrep Imaging LABORATORY System with SERVICES Manual Evaluation Specimen Satisfactory for 02/28/2021 [facility] Adequacy Evaluation - 12:51 EDT CENTER transformation LABORATORY zone component SERVICES present General Negative for 02/28/2021 [facility] Categorization intraepithelial 12:51 EDT CENTER lesion or LABORATORY malignancy SERVICES Attestation . 02/28/2021 [facility] Elect ronically 12:51 EDT CENTER signed by LABORATORY CHUNG Boo CT(ASCP) o n 02/28/2021 at 1251 Clinical History See below 02/28/2021 [facility] 12:51 EDT CENTER LABORATORY SERVICES Performing Lab [facility] 02/28/2021 [facility] AL LAB 12:51 EDT CENTER LABORATORY SERVICES Scanned Images 02/28/2021 [facility] 12:51 EDT CENTER LABORATORY SERVICES Specimen Anatomical Collection Method Collection Time Receive d Time (Source) Location / / Volume Laterality Pap Test (Cervix 02/17/2021 14:30 14/2 021 and/or EDT 12:57 EDT Endocervix) Claudia Godinez [employer] PATHOLOGY ORDERABLES Performing Organization Address City/State/ZIP Code Phon e Number [facility] [address] [place] [address] SERVICES documented in this encounter Visit Diagnoses Diagnosis Encounter for other general examination documented in this encounter Additional Health Concerns Infection Onset Date Last Indicated Resolved Time COVID-19 06/07/2022 06/07/2022 06/27/2022 22:15 EDT documented as of this encounter Care Teams Deputy General Counsel Relationship Specialty Start Date End Date Jesse Benavidez MD PCP - General 07/21/15 [address] [place] [phone] documented as of this encounter
--- OUTSIDE RECORDS SUMMARY | 2022-08-10 13:19 | XMS_ITS | Encounter Summary ---
:1995 Author Organization [facility] Address [address] [place] [address] Care Team Providers Name Role Phone Jesse Benavidez MD Primary Care Provider Encounter Details Date Type Department Care Team Description 05/23/2021 Lab Requisition [facility] Center Outr Resulting Lab, Pathology & Laboratory Provider [facility] [address] [place] [address] Social History Tobacco Use Types Packs/Day Years Used Date Smoking Tobacco: Never Assessed Sex Assigned at Date Recorded Not on file documented as of this encounter Plan of Treatment Not on filedocumented as of this encounter Procedures Procedure Name Priority Date/Time Associated Diagnosis Comme nts COVID-19 TEST [facility] Today 05/23/2021 12:20 LAB PCR EDT COVID-19 TESTING Routine 05/23/2021 12:20 Results for this EDT procedure are i n the results section. documented in this encounter Results COVID-19 TEST [facility] LAB PCR (05/23/2021 12:20 EDT) Specimen Anatomical Location Collection Method Collection Time Received Time (Source) / Laterality / Volume Swab ENTIRE NASOPHARYNX 05/23/2021 12:20 05/23 / Unknown EDT 21:13 EDT Provider Outr Resulting Lab MICROBIOLOGY - GENERAL ORD ERABLES Performing Organization Address City/State/ZIP Code Phon e Number [facility] [address] [place] [address] SERVICES COVID-19 TESTING (05/23/2021 12:20 EDT) Analysis Performed At [employer] Time Signature COVID-19 Negative Negative 05/24/2021 [facility] MEDICAL rt-PCR Result 14:10 EDT CENTER LABORATORY SERVICES Comment: This test [...] performed using the roseanne SA RS-CoV-2 assay ([employer] on the Roseanne 6800 System Performing Lab [address]anne [address] [facility] 05/24/2021 14:10 E DT [facility] Lab LABORATORY SERVICES Specimen Anatomical Collection Method Collection Time Receive d Time (Source) Location / / Volume Laterality Swab 05/23/2021 12:20 05/23/2021 EDT 21:13 EDT Provider Outr Resulting Lab MICROBIOLOGY - GENERAL ORD ERABLES Performing Organization Address City/State/ZIP Code Phon e Number [facility] [address] [place] [address] SERVICES documented in this encounter Visit Diagnoses Not on filedocumented in this encounter Additional Health Concerns Infection Onset Date Last Indicated Resolved Time COVID-19 06/07/2022 06/07/2022 06/27/2022 22:15 EDT documented as of this encounter Care Teams Mutual Fund Manager Relationship Specialty Start Date End Date Jesse Benavidez MD PCP - General 07/21/15 [address] [address] documented as of this encounter
--- OUTSIDE RECORDS SUMMARY | 2022-08-10 13:19 | XMS_ITS | Encounter Summary ---
:1995 Author Organization [facility] Address [address] [place] [address] Care Team Providers Name Role Phone Jesse Benavidez MD Primary Care Provider Encounter Details Date Type Department Care Team Description 01/27/2022 Lab Requisition [facility] Center Outr Resulting Lab, Pathology & Laboratory Provider [facility] [address] [place] [id number] Social History Tobacco Use Types Packs/Day Years Used Date Smoking Tobacco: Never Assessed Sex Assigned at Date Recorded Not on file documented as of this encounter Plan of Treatment Not on filedocumented as of this encounter Procedures Procedure Name Priority Date/Time Associated Diagnosis Comme nts COVID-19 TEST [facility] Today 01/27/2022 14:39 LAB PCR EDT COVID-19 TESTING Routine 01/27/2022 14:39 Results for this EDT procedure are i n the results section. documented in this encounter Results COVID-19 TEST [facility] LAB PCR (01/27/2022 14:39 EDT) Specimen Anatomical Collection Method Collection Time Receive d Time (Source) Location / / Volume Laterality Swab 01/27/2022 14:39 01/28/2022 EDT 16:27 EDT Provider Outr Resulting Lab MICROBIOLOGY - GENERAL ORD ERABLES Performing Organization Address City/State/ZIP Code Phon e Number [facility] [address] [place] [address] SERVICES COVID-19 TESTING (01/27/2022 14:39 EDT) Analysis Performed At Patho logist Time Signature COVID-19 Negative Negative 01/29/2022 [facility] MEDICAL rt-PCR Result 12:15 EDT CENTER LABORATORY SERVICES Comment: This test [...] performed using the roseanne SA RS-CoV-2 assay ([employer] on the Roseanne 6800 System Performing Lab [address]anne [address] [facility] 01/29/2022 12:15 E DT [facility] Lab LABORATORY SERVICES Specimen Anatomical Collection Method Collection Time Receive d Time (Source) Location / / Volume Laterality Swab 01/27/2022 14:39 01/28/2022 EDT 16:27 EDT Provider Outr Resulting Lab MICROBIOLOGY - GENERAL ORD ERABLES Performing Organization Address City/State/ZIP Code Phon e Number [facility] [address] [place] [address] SERVICES documented in this encounter Visit Diagnoses Not on filedocumented in this encounter Additional Health Concerns Infection Onset Date Last Indicated Resolved Time COVID-19 06/07/2022 06/07/2022 06/27/2022 22:15 EDT documented as of this encounter Care Teams Associate Attorney Relationship Specialty Start Date End Date Jsese Benavidez MD PCP - General 07/21/15 [place] [address] documented as of this encounter
--- OUTSIDE RECORDS SUMMARY | 2022-08-10 13:19 | XMS_ITS | Encounter Summary ---
:1995 Author Organization [facility] Address [address] [place] [address] Care Team Providers Name Role Phone Jesse Benavidez MD Primary Care Provider Encounter Details Date Type Department Care Team Description 04/21/2021 Lab Requisition [facility] Angélica Marcial Other specified Pathology & [address] postprocedural states Laboratory Medicine [facility] [id number] [address] [facility] [phone] [place], [place] (Work) [address] Social History Tobacco Use Types Packs/Day Years Used Date Smoking Tobacco: Never Assessed Sex Assigned at Date Recorded Not on file documented as of this encounter Plan of Treatment Not on filedocumented as of this encounter Procedures Procedure Name Priority Date/Time Associated Diagnosis Comme [facility] SURGICAL PATHOLOGY Today 04/20/2021 13:40 Other specified Re sults for this EDT postprocedural states proced ure are in the results section. documented in this encounter Results SURGICAL PATHOLOGY (04/20/2021 13:40 EDT) Component Value Ref Test Analysis Performed At [facility] Range Method Time Signature Note to The following 04/26/2021 [facility] Patient pathology results 15:54 EDT CENTER have been LABORATORY interpreted by SERVICES your pathologist and may be available to you before your health provider has had the opportunity to review them. Please allow time for your provider to receive these results and explore management options, if applicable. Final A. INTRAUTERINE CONTENTS, EVACUATION: [facility] Diagnosis - Chorionic villi present, consistent with products of conception 15:54 EDT CENTER - Gestational type endometrium LABORATORY SERVICES Attestation There was 04/26/2021 [facility] Elect ronically significant 15:54 EDT CENTER signed b y resident/fellow LABORATORY Kaitlin Aviles, involvement in SERVICES MD on 04/26/2021 the diagnostic at 15 54 evaluation of this case. By the signature below, the attending physician certifies that they have personally conducted a gross and/or microscopic examination of the described specimens and rendered or confirmed the above diagnosis. Clinical Incomplete 04/26/2021 [facility] History miscarriage 15:54 EDT CENTER LABORATORY SERVICES Gross A. 04/26/2021 [facility] Description Received in formalin aldo d with proper patient identification (initials M, C) and uterine products of conception is an aggregate of wallace-gonzales membranous tissue (3.7 x 3.2 x 0.5 cm). Approximately 80% of the specimen is submitted in A1-A3. 15:54 EDT CENTER LABORATORY [place]KS(ASCP) 04/21/2021 9:50 SERVICES Resident/Carlos Laureano, 04/26/2021 [facility] w: MD Felipe 15:54 T CENTER LABORATORY SERVICES Performing Lab [facility] 04/26/2021 [facility] AL LAB 15:54 T CENTER LABORATORY SERVICES Scanned Images 04/26/2021 [facility] 15:54 EDT CENTER LABORATORY SERVICES Specimen Anatomical Collection Method Collection Time Receive d Time (Source) Location / / Volume Laterality Tissue PRODUCTS OF 04/20/2021 13:40 04/21/2021 9:10 CONCEPTION TISSUE EDT EDT SPECIMEN / Unknown Angélica Marcial PATHOLOGY ORDERABLES Performing Organization Address City/State/ZIP Code Phon e Number [facility] [address] [place] [address] SERVICES documented in this encounter Visit Diagnoses Diagnosis Other specified postprocedural states documented in this encounter Additional Health Concerns Infection Onset Date Last Indicated Resolved Time COVID-19 06/07/2022 06/07/2022 06/27/2022 22:15 EDT documented as of this encounter Care Teams Ride Operator Relationship Specialty Start Date End Date Jesse Benavidez MD PCP - General 07/21/15 [place] [address] documented as of this encounter
--- OUTSIDE RECORDS SUMMARY | 2022-08-10 13:19 | XMS_ITS | Encounter Summary ---
:[address] [facility] Address [address] [place] [address] Care Team Providers Name Role Phone Jesse Benavidez MD Primary Care Provider Encounter Details Date Type Department Care Team Description 08/15/2021 Lab Requisition [facility] Outr Resulting Lab, Pathology & Laboratory Provider [facility] [address] [place] [address] Social History Tobacco Use Types Packs/Day Years Used Date Smoking Tobacco: Never Assessed Sex Assigned at Date Recorded Not on file documented as of this encounter Plan of Treatment Not on filedocumented as of this encounter Procedures Procedure Name Priority Date/Time Associated Diagnosis Comme nts COVID-19 TEST [facility] Today 08/15/2021 12:05 LAB PCR EST COVID-19 TESTING Routine 08/15/2021 12:05 Results for this EST procedure are i n the results section. documented in this encounter Results COVID-19 TEST [facility] LAB PCR (08/15/2021 12:05 EST) Specimen Anatomical Collection Method Collection Time Receive d Time (Source) Location / / Volume Laterality Swab 08/15/2021 12:05 08/15/2021 EST 22:29 EST Provider Outr Resulting Lab MICROBIOLOGY - GENERAL ORD ERABLES Performing Organization Address City/State/ZIP Code Phon e Number [facility] LABORATORY [address] [place] [address] SERVICES COVID-19 TESTING (08/15/2021 12:05 EST) Analysis Performed At Patho logist Time Signature COVID-19 Negative Negative 08/16/2021 [facility] rt-PCR Result 14:18 EST CENTER LABORATORY SERVICES Comment: This test has [...] performed using the roseanne SA RS-CoV-2 assay ([employer] on the Roseanne 6800 System Performing Lab Roseanne [address] [facility] 08/16/2021 14:18 E [facility] Lab LABORATORY SERVICES Specimen Anatomical Collection Method Collection Time Receive d Time (Source) Location / / Volume Laterality Swab 08/15/2021 12:05 08/15/2021 EST 22:29 EST Provider Outr Resulting Lab MICROBIOLOGY - GENERAL ORD ERABLES Performing Organization Address City/State/ZIP Code Phon e Number [facility] [address] [place] [address] SERVICES documented in this encounter Visit Diagnoses Not on filedocumented in this encounter Additional Health Concerns Infection Onset Date Last Indicated Resolved Time COVID-19 06/07/2022 06/07/2022 06/27/2022 22:15 EDT documented as of this encounter Care Teams Marine Oiler Relationship Specialty Start Date End Date Jesse Benavidez MD PCP - General 07/21/15 [place] [address] documented as of this encounter
--- OUTSIDE RECORDS SUMMARY | 2022-08-10 13:19 | XMS_ITS | Encounter Summary ---
:1995 Author Organization [facility] Address [address] [place] [address] Care Team Providers Name Role Phone Jesse Benavidez MD Primary Care Provider Encounter Details Date Type Department Care Team Description 09/30/2020 Lab Requisition [facility] Outr Resulting Lab, Pathology & Laboratory Provider [facility] [address] [place] [address] Social History Tobacco Use Types Packs/Day Years Used Date Smoking Tobacco: Never Assessed Sex Assigned at Date Recorded Not on file documented as of this encounter Plan of Treatment Not on filedocumented as of this encounter Procedures Procedure Name Priority Date/Time Associated Comments Diagnosis DO NOT ORDER Today 09/29/2020 14:55 Results for this STANDALONE - BROAD EST procedure are in COVID TEST the results section. COVID-19 TESTING Routine 09/29/2020 14:55 Results for this EST procedure are i n the results section. documented in this encounter Results DO NOT ORDER STANDALONE - BROAD COVID TEST (09/29/2020 14:55 EST) Analysis Performed At [facility] Time Signature COVID-19 NEGATIVE Negative 10/02/2020 [facility] rt-PCR Result 7:45 EST [facility]STITUTE LAB[facility]ORY Comment: 2019-novel Coronavirus (2019-nCoV) not d etected by the qRT-PCR assay. Consider testing for other respiratory viruses or re-collecting for 2019-nCoV testing. Note: Optimum timing for peak viral levels du ring infections caused by 2019-nCoV have not been determined. Collection of multiple specimens from the same patient may be necessary to detect the virus. Limitations Positive results are indicative of activ e infection with SARS-CoV-2 but do not rule out bacterial infection or co-infection with other viruses. The agent detected may not be the definite cause of diseas e. In addition, detection of viral RNA m ay not indicate the presence of infectious virus or that SARS-CoV-2 is the causative agent for clinical symptoms. Negative results do not preclude SARS-Co V-2 infection and should not be used as the sole basis for patient management decisions. Negative results must be combined with clinical observations, patient his tory, and epidemiological information. F alse negative results may also occur if amplification inhibitors are present in the specimen or if inadequate numbers of organisms are present in the specimen. Op timum specimen types and timing for peak viral levels during infections caused by SARS-CoV-2 have not been fully determined. Collection of multiple specimens (types and time points) from the same patient may be necessary to detect the virus. The test was validated for use with uppe r respiratory specimens obtained via nasopharyngeal or oropharyngeal swabs in VTM, UTM, M4, M5, M6, saline, and MTM media. The performance of this test has not be en established for other specimens. Spec imens collected using other FDA recommended Specimen Collection Materials listed in the FDA COVID-19 Diagnostic Technologies communication (December 03, 2019) are pr ocessed with the caveat that they were n ot all validated for use with this test and the result must be interpreted in this context. Furthermore, a false negative results may occur if a specimen is improperly collected, transported or handled. If the virus mutates in the RT-PCR targe t region, SARS-CoV-2 may not be detected or may be detected less predictably. Inhibitors or other types of interferenc e may produce a false negative result. An interference study evaluating the effect of common cold medications was not performed. This test is not FDA-cleared but its per formance characteristics were established by our CLIA-certified, CAP-accredited, high complexity laboratory in accordance with CLIA regulations, College of [employer] an Pathologists (CAP) guidelines (Nov), and FDA guidance (Nov 07, 2019). This test is only for use under the Food and Drug Administration's Emergency Use Authorization. Specimen Anatomical Location Collection Method Collection Time Received Time (Source) / Laterality / Volume Swab ENTIRE NASOPHARYNX 09/29/2020 14:55 09/30 / Unknown EST 15:56 EST Provider Outr Resulting Lab MICROBIOLOGY - GENERAL ORD ERABLES Performing Organization Address City/State/ZIP Code Phon e Number [facility] ER LABORATORY [facility] [place], [place] COVID-19 TESTING (09/29/2020 14:55 EST) Analysis [facility]formed [facility] Time Signature COVID-19 NEGATIVE Negative 10/02/2020 [facility] rt-PCR Result 10:27 EST [facility]STITUTE [facility] Comment: 2019-novel Coronavirus (2019-nCoV) not d etected by the qRT-PCR assay. Consider testing for other respiratory viruses or re-collecting for 2019-nCoV testing. Note: Optimum timing for peak viral levels du ring infections caused by 2019-nCoV have not been determined. Collection of multiple specimens from the same patient may be necessary to detect the virus. Limitations Positive results are indicative of activ e infection with SARS-CoV-2 but do not rule out bacterial infection or co-infection with other viruses. The agent detected may not be the definite cause of diseas e. In addition, detection of viral RNA m ay not indicate the presence of infectious virus or that SARS-CoV-2 is the causative agent for clinical symptoms. Negative results do not preclude SARS-Co V-2 infection and should not be used as the sole basis for patient management decisions. Negative results must be combined with clinical observations, patient his tory, and epidemiological information. F alse negative results may also occur if amplification inhibitors are present in the specimen or if inadequate numbers of organisms are present in the specimen. Op timum specimen types and timing for peak viral levels during infections caused by SARS-CoV-2 have not been fully determined. Collection of multiple specimens (types and time points) from the same patient may be necessary to detect the virus. The test was validated for use with uppe r respiratory specimens obtained via nasopharyngeal or oropharyngeal swabs in VTM, UTM, M4, M5, M6, saline, and MTM media. The performance of this test has not be en established for other specimens. Spec imens collected using other FDA recommended Specimen Collection Materials listed in the FDA COVID-19 [employer] communication (December 03, 2019) are pr ocessed with the caveat that they were n ot all validated for use with this test and the result must be interpreted in this context. Furthermore, a false negative results may occur if a specimen is improperly collected, transported or handled. If the virus mutates in the RT-PCR targe t region, SARS-CoV-2 may not be detected or may be detected less predictably. Inhibitors or other types of interferenc e may produce a false negative result. An interference study evaluating the effect of common cold medications was not performed. This test is not FDA-cleared but its per formance characteristics were established by our CLIA-certified, CAP-accredited, high complexity laboratory in accordance with CLIA regulations, College of [employer] an Pathologists (CAP) guidelines (Nov), and FDA guidance (Nov 07, 2019). This test is only for use under the Food and Drug Administration's Emergency Use Authorization. Performing Lab [facility] 10/02/2020 10:2 7 EST [facility] LABORATORY SERVICES Specimen Anatomical Collection Method Collection Time Receive d Time (Source) Location / / Volume Laterality Swab 09/29/2020 14:55 09/30/2020 EST 15:56 EST Provider Outr Resulting Lab MICROBIOLOGY - GENERAL ORD ERABLES Performing Organization Address City/State/ZIP Code Phon e Number [facility] [address] [place] [address] SERVICES [facility] [place], [place] documented in this encounter Visit Diagnoses Not on filedocumented in this encounter Additional Health Concerns Infection Onset Date Last Indicated Resolved Time COVID-19 06/07/2022 06/07/2022 06/27/2022 22:15 EDT documented as of this encounter Care Teams Embosser Apprentice Relationship Specialty Start Date End Date Jesse Benavidez MD PCP - General 07/21/[address] [place] [id number] documented as of this encounter
--- OUTSIDE RECORDS SUMMARY | 2022-08-10 13:19 | XMS_ITS | Encounter Summary ---
:1995 Author Organization [facility] Address [address] [place] [address] Care Team Providers Name Role Phone Jesse Benavidez MD Primary Care Provider Encounter Details Date Type Department Care Team Description 07/28/[address] [facility] Outr Resulting Lab, Pathology & Laboratory Provider [facility] [address] [place] [address] Social History Tobacco Use Types Packs/Day Years Used Date Smoking Tobacco: Never Assessed Sex Assigned at Date Recorded Not on file documented as of this encounter Plan of Treatment Not on filedocumented as of this encounter Procedures Procedure Name Priority Date/Time Associated Diagnosis Comme nts COVID-19 TEST [facility] Today 07/28/2021 1:30 EST LAB PCR COVID-19 TESTING Routine 07/28/2021 1:30 EST Resu lts for this procedure are i n the results section. documented in this encounter Results COVID-19 TEST [facility] LAB PCR (07/28/2021 1:30 EST) Specimen Anatomical Collection Method Collection Time Receive d Time (Source) Location / / Volume Laterality Swab 07/28/2021 1:30 07/28/2021 EST 20:32 EST Provider Outr Resulting Lab MICROBIOLOGY - GENERAL ORD ERABLES Performing Organization Address City/State/ZIP Code Phon e Number [facility] [address] [place] [address] SERVICES COVID-19 TESTING (07/28/2021 1:30 EST) Analysis Performed At Patho logist Time Signature COVID-19 Negative Negative 07/29/2021 [facility] MEDICAL rt-PCR Result 13:36 EST CENTER LABORATORY SERVICES Comment: This test [...] performed using the roseanne SA RS-CoV-2 assay ([employer] on the Roseanne 6800 System Performing Lab [address] [facility] 07/29/2021 13:36 E [facility] Lab LABORATORY SERVICES Specimen Anatomical Collection Method Collection Time Receive d Time (Source) Location / / Volume Laterality Swab 07/28/2021 1:30 07/28/2021 EST 20:32 EST Provider Outr Resulting Lab MICROBIOLOGY - GENERAL ORD ERABLES Performing Organization Address City/State/ZIP Code Phon e Number [facility] [address] [place] [address] SERVICES documented in this encounter Visit Diagnoses Not on filedocumented in this encounter Additional Health Concerns Infection Onset Date Last Indicated Resolved Time COVID-19 06/07/2022 06/07/2022 06/27/2022 22:15 EDT documented as of this encounter Care Teams Associate Professor Computer Science Relationship Specialty Start Date End Date Jesse Benavidez MD PCP - General 07/21/15 [place] [address] documented as of this encounter
--- OUTSIDE RECORDS SUMMARY | 2022-08-10 13:19 | XMS_ITS | Clinical Summary ---
:1995 Author Organization [facility] Address [address] [place] [address] Care Team Providers Name Role Phone Jesse Benavidez MD Primary Care Provider Encounters Date Type Specialty Care Team Description 06/07/2022 Lab Requisition Clinical Laboratory Outr Resulting Lab , Provider 05/27/2022 Lab Requisition Clinical Laboratory Outr Resulting Lab , Provider from Last 3 Months Social History Tobacco Use Types Packs/Day Years Used Date Smoking Tobacco: Never Assessed Sex Assigned at Date Recorded Not on file Plan of Treatment Health Maintenance Due Date Last Done Comments Hepatitis C Screen 1995 COVID-19 Vaccine (#1) 01/24/1996 Procedures Procedure Name Priority Date/Time Associated Diagnosis Comme nts COVID-19 TEST [facility] Today 06/07/2022 5:07 EDT LAB PCR COVID-19 TESTING Routine 06/07/2022 5:07 EDT Resu lts for this procedure are i n the results section. COVID-19 TEST [facility] Today 05/26/2022 19:10 LAB PCR EDT COVID-19 TESTING Routine 05/26/2022 19:10 Results for this EDT procedure are i n the results section. from Last 3 Months Results COVID-19 TEST [facility] LAB PCR (06/07/2022 5:07 EDT)Only the most recent of2 resultswithin the time period is included. Specimen Anatomical Collection Method Collection Time Receive d Time (Source) Location / / Volume Laterality Swab 06/07/2022 5:07 06/07/2022 EDT 19:08 EDT Provider Outr Resulting Lab MICROBIOLOGY - GENERAL ORD ERABLES Performing Organization Address City/State/ZIP Code Phon e Number [facility] [address] [place] [address] SERVICES (ABNORMAL) COVID-19 TESTING (06/07/2022 5:07 EDT)Only the most recent of2 resultswithin the time period is included. [facility] Method Time Signature COVID-19 Positive Negative 06/08/2022 [facility] MEDICAL rt-PCR Result (AA) 13:07 EDT [...] using the roseanne SA RS-CoV-2 assay ([employer] on the Roseanne 6800 System Performing Lab [address] [facility] 06/08/2022 13:07 E DT [facility] Lab LABORATORY SERVICES Specimen Anatomical Collection Method Collection Time Receive d Time (Source) Location / / Volume Laterality Swab 06/07/2022 5:07 06/07/2022 EDT 19:08 EDT Provider Outr Resulting Lab MICROBIOLOGY - GENERAL ORD ERABLES Performing Organization Address City/State/ZIP Code Phon e Number [facility] [address] [place] [address] SERVICES from Last 3 Months Insurance Payer Benefit Plan Subscriber ID Effective Phone Address Typ e / Group Dates MEDICAID ACO MEDICAID ACO [id number] 2019-Pres [phone] [address] [place] [address] [facility] [address] MEISEL,DEMI Personal/Family Other [phone] (Home) [place] [address] MEISEL,DEMI Personal/Family Other [phone] (Home) [place] [address] MEISEL,DEMI Personal/Family Other [phone] (Home) [place] [address] Care Teams Bet Taker Relationship Specialty Start Date End Date Jesse Benavidez MD PCP - General 07/21/15 [address] [facility] [place] [address]
== END 2022-08-10 13:36 ==
PROVIDERS: PCP Family Medicine; Visit Provider Family Medicine
DX: M25.511 Pain in right shoulder (principal)
CPT/HCPCS: 73000

== ENCOUNTER 2022-08-16 11:00 | Emergency (ER) | payer MEDICAID, SELFPAY ==
[2022-08-16 11:00] VITALS: BP 117/72; PULSE 102; RESP 17; TEMP 36.9; O2SAT 97
--- NOTE | 2022-08-16 11:15 | RT.EKG_ITS ---
APPROVED REPORT Exam: Resting ECG Reason for Exam: OD Patient Location: E HR:80 bpm ECG Measurements Heart Rate 80 AXIS IN 174 P 57 QRSd 104 QRS 74 QT 354 T -17 QTc 409 Conclusion Sinus rhythm...normal P axis, V-rate 60- 99 Probable left atrial enlargement...P >50mS, <-0.10mV V1
--- NOTE | 2022-08-16 11:17 | ED.GENADUL_ITS ---
Discharge Plan Disposition Patient Disposition: Home Condition: Improving Discharge Details Clinical Impression: Benzodiazepine overdose Primary Care Provider: Eric Singer ED Provider: Chon Gibbs Home Meds and New Rx's Prescriptions: Continued sumatriptan succinate 100 mg tablet See Rx Instructions PO .COMPLEX Qty: 9 11RF Rx Instructions: take 1 tab at onset of headache; if no relief, may repeat 1 tab after at least 2 hrs; max = 2 tabs/24 hrs PO doxazosin 1 mg tablet 1 mg PO QHS Qty: 30 0RF lorazepam 1 mg tablet 1 mg PO TID PRN (Reason: anxiety) Qty: 20 0RF (DME) nebulizer accessories Kit See Rx Instructions .ROUTE .MEDSUPPLY Qty: 1 0RF Rx Instructions: Please dispense tubing for nebulizer, and use as directed medroxyprogesterone [Depo-Provera] 150 mg/mL syringe 150 mg IM ONCE Qty: 1 0RF topiramate 50 mg tablet 50 mg PO QHS Qty: 90 3RF ondansetron 4 mg tablet,disintegrating 4 mg PO Q6H PRN (Reason: nausea and vomiting) Qty: 30 0RF Aristada 441 mg/1.6 mL suspension,extended rel syring 441 mg IM QMONTH Advair HFA 230-21 mcg/actuation HFA aerosol inhaler 2 puff inhalation BID Qty: 12 6RF montelukast [Singulair] 10 mg tablet 10 mg PO QHS Qty: 90 1RF fluoxetine [Prozac] 20 mg capsule 20 mg PO DAILY albuterol sulfate [ProAir HFA] 90 mcg/actuation HFA aerosol inhaler 2 puff Inhalation Q4H PRN Qty: 1 5RF (DME) nebulizers Misc See Rx Instructions .Route Qty: 1 0RF Rx Instructions: As directed, prn for asthma attacks ipratropium-albuterol 0.5 mg-3 mg(2.5 mg base)/3 mL solution for nebulization 3 ml inhalation QID PRN (Reason: wheezing) Qty: 90 1RF Rx Instructions: trial for acute exacerbation of asthma with pneumonia lithium carbonate 300 mg Tablet 300 mg PO QHS Discharge Instructions Instructions: Benzodiazepine Overdose (ED) Additional Instructions: Work-up in the ER has been completed and no obvious emergent process identified. Mental health evaluation completed and a safety plan has been set forth. Please follow the instructions given to you by the mental health team. Please watch for new or worsening symptoms and return to the ER for any concerns. Lastly, please contact your primary care provider later today or tomorrow to discuss your ER visit, ongoing symptoms, and need for outpatient reevaluation. Medical Decision Making 27-year-old female who identifies as a male presents for benzodiazepine overdose that occurred yesterday evening. Poison control contacted, recommend careful observation and symptomatic treatment, EKG, Tylenol and salicylate level. Clinically the patient appears well, nontoxic, awake and alert. We will initiate a medical work-up, initiate a CPSO, interim care plan, and once medically cleared obtain a mental health evaluation. Patient remained awake, alert, no signs of deterioration. Able to eat lunch without difficulty. Witnessed ambulating steadily to the restroom. Laboratory values do not reveal any obvious emergent process. Tox screen is negative for benzodiazepines. Patient medically cleared and mental health evaluation requested. Mental health evaluation completed, please see their note. At this time they do not believe the patient requires hospitalization and they have been able to successfully safety plan with the patient. They were able to look further into the housing situation and the patient in fact will not be homeless next couple of days. They plan on checking in with the patient daily, doing a daily medication drop, and the patient has outpatient assessment on Saturday. I personally spoke with the patient regarding his plan and he feels that this is appropriate, he feels safe, and no longer suicidal. Strict discharge and return precautions were provided. Patient understands, is agreeable to this plan, and has no additional questions or concerns upon discharge. This documentation was generated using [employer] system, please disregard any oddities of phrase or misspellings. Medical Records Medical records reviewed: Yes I reviewed the patient's medical records. Lab Data Lab results reviewed: Yes I reviewed the patient's lab results. Labs: Laboratory Tests Range/Units 08/16/22 08/16/22 08/16/22 11:30 11:30 11:42 WBC (4.4-10.8) 10^3/uL RBC (3.93-5.22) 10^6/uL Hgb (11.2-15.7) g/dL Hct (36.0-46.0) % MCV (80-95) fL MCH (27.0-33.0) pg MCHC (32.0-36.0) % RDW (11.7-14.6) % Plt Count (130-400) 10^3/uL MPV (8.0-11.0) fL Immature Gran % Neutrophils % Lymphocytes % Monocytes % Eosinophils % Basophils % Nucleated RBC % (0.0-0.3) % Absolute Neutrophils (1.2-6.7) 10^3/uL Absolute Lymphocytes (1.2-3.4) 10^3/uL Absolute Monocytes (0.1-0.8) 10^3/uL Absolute Eosinophils (0.0-0.7) 10^3/uL Absolute Basophils (0.0-0.2) 10^3/uL Sodium (136-145) mmol/L Potassium (3.5-5.1) mmol/L Chloride (98-107) mmol/L Carbon Dioxide (21.0-32.0) mmol/L Anion Gap (3-11) mmol/L BUN (7-18) mg/dL Creatinine (0.55-1.02) mg/dL Est GFR (CKD-EPI 2020) (mL/min/1.73m2) Glucose (74-106) mg/dL Calcium (8.5-10.1) mg/dL Total Bilirubin (0.2-1.0) mg/dL AST (15-37) U/L ALT (14-59) U/L Alkaline Phosphatase (46-116) U/L Total Protein (6.4-8.2) g/dL Albumin (3.4-5.0) g/dL TSH (0.36-3.74) uIU/mL Urine Color (Yellow) Yellow Urine Clarity (Clear) Cloudy Urine pH (5-8) 6.0 Ur Specific [place] (1.005-1.025) >= 1.030 H Urine Protein (Negative) mg/dL Negative Urine Ketones (Negative) mg/dL Negative Urine Blood (Negative) Moderate H Urine Nitrite (Negative) Negative Urine Bilirubin (Negative) Negative Urine Urobilinogen (Up TO 0.2) EU/dL 0.2 Ur Leukocyte Esterase (Negative) Small H Urine RBC (0-2) HPF 20-50 H Urine WBC (0-5) HPF 5-10 Ur Epithelial Cells (Negative) HPF Moderate Urine Crystals (Negative) HPF Few Amorphous Urine Bacteria (Negative) HPF Moderate Urine Casts (Negative) LPF Negative Urine Mucus (Negative) Trace Ur Culture Indicated? No/Sq. Contamination Urine Glucose (Negative) mg/dL Negative Salicylates (<2.8) mg/dL Urine Opiates Screen (Negative) Negative Urine Methadone Screen (Negative) Negative Acetaminophen (10-30) ug/mL Ur Barbiturates Screen (Negative) Negative Ur Tricyclics Screen (Negative) Negative Ur Amphetamines Screen (Negative) Negative U Benzodiazepines Scrn (Negative) Negative Urine Cocaine Screen (Negative) Negative Ur THC Screen (Negative) Negative Ethyl Alcohol (<10) mg/dL COVID-19 Source Nasal/Nares SARS-CoV-2 (PCR) (Negative) Negative Range/Units 08/16/22 08/16/22 08/16/22 12:03 12:03 12:03 WBC (4.4-10.8) 10^3/uL 6.97 RBC (3.93-5.22) 10^6/uL 4.86 Hgb (11.2-15.7) g/dL 14.0 Hct (36.0-46.0) % 42.7 MCV (80-95) fL 88 MCH (27.0-33.0) pg 28.8 MCHC (32.0-36.0) % 32.8 RDW (11.7-14.6) % 12.7 Plt Count (130-400) 10^3/uL 273 MPV (8.0-11.0) fL 10.6 Immature Gran % 0.3 Neutrophils % 64.5 Lymphocytes % 22.0 Monocytes % 6.2 Eosinophils % 6.0 Basophils % 1.0 Nucleated RBC % (0.0-0.3) % 0.0 Absolute Neutrophils (1.2-6.7) 10^3/uL 4.50 Absolute Lymphocytes (1.2-3.4) 10^3/uL 1.53 Absolute Monocytes (0.1-0.8) 10^3/uL 0.43 Absolute Eosinophils (0.0-0.7) 10^3/uL 0.42 Absolute Basophils (0.0-0.2) 10^3/uL 0.07 Sodium (136-145) mmol/L 140 Potassium (3.5-5.1) mmol/L 3.6 Chloride (98-107) mmol/L 106 Carbon Dioxide (21.0-32.0) mmol/L 26.5 Anion Gap (3-11) mmol/L 7.5 BUN (7-18) mg/dL 12 Creatinine (0.55-1.02) mg/dL 1.0 Est GFR (CKD-EPI 2020) (mL/min/1.73m2) 79.19 Glucose (74-106) mg/dL 86 Calcium (8.5-10.1) mg/dL 9.2 Total Bilirubin (0.2-1.0) mg/dL 0.7 AST (15-37) U/L 11 L ALT (14-59) U/L 22 Alkaline Phosphatase (46-116) U/L 74 Total Protein (6.4-8.2) g/dL 7.8 Albumin (3.4-5.0) g/dL 4.1 TSH (0.36-3.74) uIU/mL 0.88 Urine Color (Yellow) Urine Clarity (Clear) Urine pH (5-8) Ur Specific [place] (1.005-1.025) Urine Protein (Negative) mg/dL Urine Ketones (Negative) mg/dL Urine Blood (Negative) Urine Nitrite (Negative) Urine Bilirubin (Negative) Urine Urobilinogen (Up TO 0.2) EU/dL Ur Leukocyte Esterase (Negative) Urine RBC (0-2) HPF Urine WBC (0-5) HPF Ur Epithelial Cells (Negative) HPF Urine Crystals (Negative) HPF Urine Bacteria (Negative) HPF Urine Casts (Negative) LPF Urine Mucus (Negative) Ur Culture Indicated? Urine Glucose (Negative) mg/dL Salicylates (<2.8) mg/dL < 2.8 Urine Opiates Screen (Negative) Urine Methadone Screen (Negative) Acetaminophen (10-30) ug/mL < 2 Ur Barbiturates Screen (Negative) Ur Tricyclics Screen (Negative) Ur Amphetamines Screen (Negative) U Benzodiazepines Scrn (Negative) Urine Cocaine Screen (Negative) Ur THC Screen (Negative) Ethyl Alcohol (<10) mg/dL < 3.0 COVID-19 Source SARS-CoV-2 (PCR) (Negative) ECG Data Attestation: I personally reviewed and interpreted this ECG (s) as follows: Interpretation: Sinus rhythm, ventricular rate of 80, no STEMI. Sign Out No HPI General Mode of arrival: EMS . Date/Time Provider Initiated Documentation: 08/16/22 11:06 . Limitations to Documentation: no limitations . Information obtained by: patient and EMS . HPI Narrative: This is a 27-year-old female who identifies as a male and goes by the name Gonzalo, presents via EMS for evaluation of an Ativan overdose that occurred yesterday around dinnertime. Patient reports that he was kicked out of his family's house and will now likely be homeless in the next couple of days. Reports taking a total of 17 tablets, 1 mg Ativan yesterday. Currently reports feeling slightly tired otherwise asymptomatic. Denies taking any other medications or any other self-harm. Denies recent illness or trauma. Related Data Home Medications Medication Instructions Recorded Confirmed nebulizer accessories #1 ea 08/17/19 08/16/22 fluoxetine 20 mg capsule (Prozac) 20 mg PO DAILY 11/07/20 08/16/22 lithium carbonate 300 mg tablet 300 mg PO QHS 08/17/21 08/16/22 albuterol sulfate 90 mcg/actuation 2 puff inhalation Q4H PRN ##1 01/12/22 08/16/22 aerosol inhaler (ProAir HFA) sumatriptan succinate 100 mg tablet See Rx Instructions PO .COMPLEX #9 02/07/22 08/16/22 tabs aripiprazole lauroxil 441 mg/1.6 441 mg IM QMONTH 05/16/22 08/16/22 mL suspension, ext.rel. IM syringe (Aristada) ondansetron 4 mg disintegrating 4 mg PO Q6H PRN nausea and 05/16/22 08/16/22 tablet vomiting #30 tabs topiramate 50 mg tablet 50 mg PO QHS #90 tabs 05/16/22 08/16/22 fluticasone propionate 230 2 puff inhalation BID #12 grams 05/18/22 08/16/22 mcg-salmeterol 21 mcg/actuation HFA inhaler (Advair HFA) montelukast 10 mg tablet 10 mg PO QHS #90 tabs 05/18/22 08/16/22 (Singulair) ipratropium 0.5 mg-albuterol 3 mg 3 ml inhalation QID PRN wheezing 06/07/22 08/16/22 (2.5 mg base)/3 mL nebulization #90 mL soln nebulizers #1 ea 06/07/22 08/16/22 doxazosin 1 mg tablet 1 mg PO QHS #30 tabs 07/27/22 08/16/22 lorazepam 1 mg tablet 1 mg PO TID PRN anxiety #20 tabs 08/07/22 08/16/22 Previous Rx's Medication Instructions Recorded nebulizer accessories #1 ea 08/17/19 albuterol sulfate 90 mcg/actuation 2 puff inhalation Q4H PRN ##1 01/12/22 aerosol inhaler (ProAir HFA) sumatriptan succinate 100 mg tablet See Rx Instructions PO .COMPLEX #9 02/07/22 tabs ondansetron 4 mg disintegrating 4 mg PO Q6H PRN nausea and 05/16/22 tablet vomiting #30 tabs topiramate 50 mg tablet 50 mg PO QHS #90 tabs 05/16/22 fluticasone propionate 230 2 puff inhalation BID #12 grams 05/18/22 mcg-salmeterol 21 mcg/actuation HFA inhaler (Advair HFA) montelukast 10 mg tablet 10 mg PO QHS #90 tabs 05/18/22 (Singulair) ipratropium 0.5 mg-albuterol 3 mg 3 ml inhalation QID PRN wheezing 06/07/22 (2.5 mg base)/3 mL nebulization #90 mL soln nebulizers #1 ea 06/07/22 doxazosin 1 mg tablet 1 mg PO QHS #30 tabs 07/27/22 lorazepam 1 mg tablet 1 mg PO TID PRN anxiety #20 tabs 08/07/22 Allergies Allergy/AdvReac Type Severity Reaction Status Date / Time peanut Allergy Intermediate Swelling/Ed Verified 08/16/22 11:04 josy citalopram AdvReac Intermediate insomnia Verified 08/16/22 11:04 ultrasound gel Allergy Intermediate Itching Uncoded 08/16/22 11:04 General Stated Complaint: PsychEval CONOR: 2 Review of Systems Constitutional Constitutional: Denies fever(s), Denies headache(s) and Denies weakness ENT Ears, Nose, Mouth, and Throat: Denies headache(s) and Denies neck pain Cardiovascular Cardiovascular: Denies chest pain and Denies dyspnea Respiratory Respiratory: Denies cough and Denies dyspnea Gastrointestinal Gastrointestinal: Denies abdominal pain, Denies nausea and Denies vomiting Musculoskeletal Musculoskeletal: Denies neck pain Integumentary/Breasts Skin/Breast: Denies rash Neurologic Neurologic: Denies headache(s) and Denies weakness Psychiatric Psychiatric: Reports anxiety, Reports depression, Denies homicidal ideation and Reports suicidal ideation [facility] All Active Problems (Updated 08/16/22 @ 14:52 by DALLAS Barger) Benzodiazepine overdose (Acute) Anxiety (Chronic) Nonspecific paroxysmal spell (Acute) Migraine headache without aura (Acute) Syncope and collapse (Acute) Contact dermatitis due to adhesive bandage (Acute) Delayed menses (Acute) Acute bronchospasm (Acute) Asthma (Chronic) Bronchitis (Acute) Severe major depression with psychotic features (Acute) Pain, dental (Acute) Contraceptive management (Acute) Status post dilation and curettage (Acute) Asthma (Chronic) Syncopal episodes (Chronic) a. With heart murmur for which she had a normal cardiac evaluation. 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 F/u echo in 5 years Depression (Chronic 01/24/15) 04/25 - 05/02/18 Inpatient [facility] (depression with suicidal ideation) Adjustment disorder with mixed anxiety and depressed mood (Chronic) per [facility] Mikayla cedillo Major depressive disorder, recurrent episode, severe (Chronic) per [facility] Mikayla cedillo Medical History Allergic rhinitis Alopecia (capitis) totalis Asthma Atopic dermatitis Tavujn-lt-acdo transgender person Preferred name: Teodora He/Him pronouns 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; anesthesia given to lower tooth Urinary tract infection requiring hospitalization Family History Mother Obstructive sleep apnea syndrome uses cpap hs Father Esophageal stricture Diabetes Sister Mental disorder Depression Brother Asthma Social History Smoking/Tobacco Use Status: Current-Occasional Tobacco Type: cigarettes Tobacco: How many years used: 1 Quit status: quit date established Smoking risk assessment performed?: Yes Alcohol Intake: former Drug use: Occasionally Substance use type: marijuana Details: few times a month; pt reports none on DOS 06/10/21 What type of physical activity do you participate in: walking Frequency: daily Seatbelt use: always Do you feel safe at home: Yes Do you feel safe in your relationship?: Yes Female Reproductive History Menstrual control method: progestin IUCD History History 2 Para 1 Hx # Term Pregnancies 1 Multiple births Hx # Pregnancies Ectopic pregnancies AB induced Hx Number of Living Children 1 AB spontaneous 1 Past Pregnancies Del. Date GA/Weeks # Preg Succ Route Wgt Sex Labor Lgth Anesth esia Location [facility] 03/03/16 39 No vaginal 2920.001 g Female Kelvin it 04/20/21 6 No KJ Exam Const General: cooperative, healthy appearing, comfortable and no acute distress Orientation: alert and awake HENMT Head: normal to inspection, normocephalic and atraumatic Face and sinus: normal facial exam Mouth: moist mucous membranes Eyes General: appearance normal, both eyes and all related structures Conjunctivae: conjunctivae normal Neck Neck: normal visual inspection, full ROM, no meningeal signs, trachea midline and supple Resp Effort & Inspection: normal respiratory effort and able to speak in complete sentences Auscultation: clear to auscultation bilaterally Cardio Rate: regular rate Rhythm: regular rhythm GI Palpation: soft, not firm, no guarding and nontender Back/Spine/Pelvis Back: No back tenderness Skin General skin exam: no rashes or lesions noted Neuro General: patient alert, patient awake, patient oriented x3, moves all extremities and no focal motor deficits Cognition: normal cognition Speech: speech normal Gait: normal gait Motor: muscle tone normal throughout Sensory Exam: no sensory deficits noted Extrem General: normal to inspection, full ROM and capillary refill normal Psych Appearance: grossly normal Mental Status: mental status grossly normal Speech and Movement: speech and movement normal Mood: dysthymic mood Affect: sad Attitude: cooperative Thought Process: normal Thought Content: suicidality Insight: fair Judgment: fair Course Vital Signs Vital signs: Vital Signs Temperature 36.9 C 08/16/22 11:00 Pulse 102 H 08/16/22 11:00 Respiratory Rate 17 08/16/22 11:00 Blood Pressure 117/72 08/16/22 11:00 Pulse Oximetry 97 08/16/22 11:00 Temperature 36.9 C 08/16/22 11:00 Temperature Source Temporal Artery Scan 08/16/22 11:00 Pulse 102 H 08/16/22 11:00 Respiratory Rate 17 08/16/22 11:00 Respiratory Effort Non-Labored 08/16/22 11:02 Blood Pressure 117/72 08/16/22 11:00 Blood Pressure Position Sitting 08/16/22 11:00 Pulse Oximetry 97 08/16/22 11:00 Oxygen Delivery Method Room Air 08/16/22 11:00 Oxygen Flow Rate 0 08/16/22 11:00 Pain Level 0 08/16/22 11:00
[2022-08-16 11:44] LABS: Bilirubin Negative (Negative); Blood Moderate (Negative); Clarity Cloudy (Clear); Glucose Negative (Negative); Ketones Negative (Negative); Leukocyte Esterase Small (Negative); Nitrite Negative (Negative); Specific Gravity >= 1.030 (1.005-1.025); Urobilinogen 0.2 EU/dL (Up TO 0.2)
[2022-08-16 11:46] LABS: Source Nasal/Nares
[2022-08-16 11:57] LABS: Bacteria Moderate HPF (Negative); C & S Indicated? No/Sq. Contamination; Casts Negative LPF (Negative); Crystals Few Amorphous HPF (Negative); Epithelial Cells Moderate HPF (Negative); Mucus Trace (Negative); RBC 20-50 HPF (0-2)
[2022-08-16 12:02] LABS: *AMPHETAMINES SCREEN URINE Negative (Negative); *BARBITURATES SCREEN URINE Negative (Negative); *BENZODIAZEPINES SCREEN URINE Negative (Negative); Cannabinoids THC Negative (Negative); Cocaine Screen,Urine Negative (Negative); METHADONE URINE SCREEN Negative (Negative); OPIATES URINE SCREEN Negative (Negative); Tricyclic Antidepressants Negative (Negative)
[2022-08-16 12:12] LABS: Abs Immature Grans 0.02 10^3/uL (0.0-0.06); Absolute Basophil Count 0.07 10^3/uL (0.0-0.2); Absolute Eosinophil Count 0.42 10^3/uL (0.0-0.7); Absolute Lymphocyte Count 1.53 10^3/uL (1.2-3.4); Absolute Monocyte Count 0.43 10^3/uL (0.1-0.8); HCT 42.7 % (36.0-46.0); Immature Grans % 0.3; MCH 28.8 pg (27.0-33.0); MCHC 32.8 % (32.0-36.0); MCV 88 fL (80-95); MPV 10.6 fL (8.0-11.0); Monocytes % 6.2; Neutrophils % 64.5; Platelet Count 273 10^3/uL (130-400); RBC 4.86 10^6/uL (3.93-5.22); RDW 12.7 % (11.7-14.6); RDW-SD 40.8 fL; WBC 6.97 10^3/uL (4.4-10.8)
[2022-08-16 12:21] LABS: COVID-19 PCR Negative (Negative)
[2022-08-16 12:37] LABS: ALT 22 U/L (14-59); AST 11 U/L (15-37); Albumin 4.1 g/dL (3.4-5.0); Alkaline Phosphatase 74 U/L (46-116); Anion Gap 7.5 mmol/L (3-11); BUN 12 mg/dL (7-18); Bilirubin, Total 0.7 mg/dL (0.2-1.0); CO2 26.5 mmol/L (21.0-32.0); Calcium 9.2 mg/dL (8.5-10.1); Chloride 106 mmol/L (98-107); Estimated GFR 79.19 (mL/min/1.73m2); Glucose 86 mg/dL (74-106); Potassium 3.6 mmol/L (3.5-5.1); Sodium 140 mmol/L (136-145); TSH (W/Ref FT4) 0.88 uIU/mL (0.36-3.74); Total Protein 7.8 g/dL (6.4-8.2)
[2022-08-16 12:39] LABS: Salicylate < 2.8 mg/dL (<2.8)
[2022-08-16 12:40] LABS: ETHANOL BLOOD < 3.0 mg/dL (<10)
[2022-08-16 12:42] LABS: Acetaminophen < 2 ug/mL (10-30)
[2022-08-16 14:57] VITALS: BP 103/66; PULSE 88; RESP 15; TEMP 36.8; O2SAT 95
== END 2022-08-16 15:04 | disposition home or self-care (01) ==
LOC: ER 15:17
PROVIDERS: Emergency Provider Physician Assistant; PCP Family Medicine
DX: T42.4X1A Poisoning by benzodiazepines, accidental (unintentional), initial encounter (principal); J45.909 Unspecified asthma, uncomplicated; Z20.822 Contact with and (suspected) exposure to COVID-19
CPT/HCPCS: 36415; 80053; 80307; 81025; 87635; 93005; 99283; 80320; 80329; 81003; 81015; 84443; 85025; 93010; 99282

== ENCOUNTER → 2022-08-21 01:32 | Outpatient (CLI) | payer MEDICAID, SELFPAY ==
--- NOTE | 2022-08-21 07:30 | DI.RAD_ITS ---
Exam(s) XR KNEE RT 3V AP,LAT,SHANNA EXAM: XR KNEE RT 3V AP,LAT,SHANNA CLINICAL HISTORY: ? ARTHRITIS, BILAT KNEE PAIN, M25.561,M25.562. TECHNIQUE: 2D digital imaging was performed of the right knee. Three views obtained. AP, lateral an d PA tunnel views were obtained. COMPARISON: None. FINDINGS: BONES: No acute fracture is present. No bony destructive lesion is seen. JOINTS: The knee is normally aligned. No joint effusion is seen. SOFT TISSUE: Normal. IMPRESSION: Unremarkable radiographs of the right knee. DATA REPOSITORY: RADIATION DOSE DELIVERED:
--- NOTE | 2022-08-21 07:30 | DI.RAD_ITS ---
Exam(s) XR KNEE LT 3V AP,LAT,SHANNA EXAM: XR KNEE LT 3V AP,LAT,SHANNA CLINICAL HISTORY: ? ARTHRITIS, BILAT KNEE PAIN, M25.561,M25.562. TECHNIQUE: 2D digital imaging was performed of the left knee. Three images were obtained. AP, late ral and PA tunnel views were obtained. COMPARISON: None. FINDINGS: BONES: No acute fracture is present. No bony destructive lesion is seen. JOINTS: The knee is normally aligned. No joint effusion is seen. SOFT TISSUE: Normal. IMPRESSION: Normal radiographs of the left knee. DATA REPOSITORY: RADIATION DOSE DELIVERED:
== END ==
PROVIDERS: PCP Family Medicine; Visit Provider Family Medicine
DX: M25.561 Pain in right knee (principal); M25.562 Pain in left knee
CPT/HCPCS: 73562

== ENCOUNTER 2022-09-12 18:40 | Outpatient (REF) | payer MEDICAID, SELFPAY ==
[2022-09-12 21:33] LABS: Anion Gap 11.2 mmol/L (3-11); BUN 9 mg/dL (7-18); CO2 22.8 mmol/L (21.0-32.0); CREATININE 0.8 mg/dL (0.55-1.02); Calcium 9.8 mg/dL (8.5-10.1); Chloride 106 mmol/L (98-107); Glucose 87 mg/dL (74-106); Magnesium 2.4 mg/dL (1.8-2.4); Potassium 3.9 mmol/L (3.5-5.1); Sodium 140 mmol/L (136-145)
== END 2022-09-12 18:41 | disposition home or self-care (01) ==
LOC: LBN 18:40
PROVIDERS: PCP Family Medicine; Visit Provider Physician Assistant Medical
DX: F41.8 Other specified anxiety disorders (principal); Z79.899 Other long term (current) drug therapy; R79.89 Other specified abnormal findings of blood chemistry
CPT/HCPCS: 80048; 83735

== ENCOUNTER 2022-09-24 01:43 | Outpatient (CLI) | payer MEDICAID, SELFPAY ==
--- NOTE | 2022-09-24 13:40 | DI.MRI_ITS ---
Exam(s) MR LOWER JOINT LT WO EXAM: MR LOWER JOINT LT WO CLINICAL HISTORY: Likely meniscal tears b/l,BILAT KNEE PAIN, M25.561,M25.562. TECHNIQUE: Multiplanar multisequence MRI was performed. COMPARISON: CR XR KNEE LT 3V AP,LAT,SHANNA from 08/21/2022 FINDINGS: The examination is limited due to patient motion artifact. BONES: There is no fracture or contusion pattern. JOINTS: Articular cartilage is unremarkable. No effusion is present. TENDONS: Extensor mechanism: Unremarkable. Medial retinaculum: Unremarkable. Lateral retinaculum: Unremarkable. Popliteus: Unremarkable. MUSCLES: Unremarkable. MENISCI: The medial meniscus is unremarkable. The lateral meniscus is unremarkable. SOFT TISSUES: Unremarkable. LIGAMENTS: Anterior Cruciate: Unremarkable. Posterior Cruciate: Unremarkable. Medial Collateral:Unremarkable. Lateral Collateral: Unremarkable. OTHER: There is a 2.1 x 0.6 x 2.2 cm popliteal cyst. IMPRESSION: 1. Small popliteal cyst. 2. Otherwise unremarkable examination. DATA REPOSITORY:
--- NOTE | 2022-09-24 14:25 | DI.MRI_ITS ---
Exam(s) MR LOWER JOINT RT WO EXAM: MR LOWER JOINT RT WO CLINICAL HISTORY: Likely meniscal tears b/l,BILAT KNEE PAIN, M25.561,M25.562. TECHNIQUE: Multiplanar multisequence MRI was performed. COMPARISON: CR XR KNEE RT 3V AP,LAT,SHANNA from 08/21/2022 FINDINGS: BONES: There is no fracture or contusion pattern. JOINTS: Articular cartilage is unremarkable. No effusion is present. TENDONS: Extensor mechanism: Unremarkable. Medial retinaculum: Unremarkable. Lateral retinaculum: Unremarkable. Popliteus: Unremarkable. MUSCLES: Unremarkable. MENISCI: The medial meniscus is unremarkable. The lateral meniscus is unremarkable. SOFT TISSUES: Unremarkable. LIGAMENTS: Anterior Cruciate: Unremarkable. Posterior Cruciate: Unremarkable. Medial Collateral:Unremarkable. Lateral Collateral: Unremarkable. OTHER: IMPRESSION: Unremarkable MRI of the right knee. DATA REPOSITORY:
== END 2022-09-24 02:03 ==
LOC: DI 01:44
PROVIDERS: PCP Family Medicine; Visit Provider Family Medicine
DX: M71.22 Synovial cyst of popliteal space [Baker], left knee (principal); M25.561 Pain in right knee
CPT/HCPCS: 73721

== ENCOUNTER 2022-09-29 10:58 | Emergency (ER) | payer MEDICAID, SELFPAY ==
[2022-09-29 11:03] VITALS: BP 124/78; PULSE 95; RESP 16; TEMP 36.6; O2SAT 97
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
[2022-09-29 13:39] VITALS: BP 114/75; PULSE 87; RESP 18; O2SAT 97
== END 2022-09-29 13:41 | disposition home or self-care (01) ==
PROVIDERS: Emergency Provider Registered Nurse Emergency; PCP Family Medicine
DX: T74.21XA Adult sexual abuse, confirmed, initial encounter (principal)
CPT/HCPCS: 99285; 81003; 99284

== ENCOUNTER 2022-10-22 23:34 | Emergency (ER) | payer MEDICAID, SELFPAY ==
[2022-10-22 23:05] VITALS: BP 94/52; PULSE 88; RESP 20; TEMP 36.7; O2SAT 96
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
[2022-10-23 00:36] LABS: *AMPHETAMINES SCREEN URINE Negative (Negative); *BARBITURATES SCREEN URINE Negative (Negative); *BENZODIAZEPINES SCREEN URINE Negative (Negative); Cannabinoids THC Negative (Negative); Cocaine Screen,Urine Negative (Negative); METHADONE URINE SCREEN Negative (Negative); OPIATES URINE SCREEN Negative (Negative)
[2022-10-23 00:37] LABS: ETHANOL BLOOD < 3.0 mg/dL (<10); Tricyclic Antidepressants Negative (Negative)
[2022-10-23 00:39] LABS: Bilirubin Negative (Negative); Blood Negative (Negative); Clarity Sl Cloudy (Clear); Glucose Negative (Negative); Ketones Trace mg/dL (Negative); Leukocyte Esterase Trace (Negative); Nitrite Negative (Negative); Specific Gravity >= 1.030 (1.005-1.025); Urobilinogen 0.2 EU/dL (Up TO 0.2); pH 5.5 (5-8)
[2022-10-23 01:00] LABS: RBC 0-2 HPF (0-2)
[2022-10-23 01:01] LABS: Bacteria Moderate HPF (Negative); C & S Indicated? No/Sq. Contamination; Casts Negative LPF (Negative); Crystals Negative HPF (Negative); Epithelial Cells Moderate HPF (Negative); Mucus Negative (Negative)
--- NOTE | 2022-10-23 01:33 | PDOC.MHPN2 ---
Date of service: 10/23/22 Time of Service: 01:30 Mental Health Emergency Note Release [facility] release signed:: Yes Reason for Visit Per [facility] report client came in to the hospital with increased and anxiety and depression and reported they could not keep themself safe at home. 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 Asssessment/Mental Status Appearance: Disheveled Behavior: Gait disturbances Speech: Slow, Incoherent, Slurred and Hesitant Affect: Cogruent with mood Mood: Stressed, Depressed and Anxious Thought process: Poverty of content Hallucinations: No evidence Delusions: No evidence Attention: Inattention Perception: Not impaired Orientation: Fully orientated (Could not fully assess as client took their sleeping medications.) Memory: Intact Insight: Poor Judgement: Poor Neurovegetative Symptoms Sleep: No change Appetitie: No change Interests: No change Energy: No change Libido: No change Substance Use: Do you use nicotine?: Yes Have you used substances in the last 7 days?: No Additional Issues: Assaultive/Threatening Behavior: No Medical Concerns: No Client engaged in active self harm w/weapon: No Threatening to run away: No Child reported abuse/neglect: No Voluntarily presenting for services: Yes Domestic violence is a concern: No Extreme Psychosis or extreme behavior is present: No Impression Gonzalo presented to the emergency room after telling JENNIFER Cadet they could not be safe at home. This global technical writer attempted to screen Gonzalo, but his speech was slow, incoherent, and slurred. Gonzalo is not able to engage with a conversation at the moment due to taking their sleeping medications prior to their arrival to the ED> Plan/Disposition Recommended Disposition: Crisis bed, (Client is being admitted to the carebed on 10/23.) facility contacted. Status of Crisis Bed acceptance: Accepted/transfer pending. Plan: Gonzalo is going to stay at the hospital overnight and be screened in the morning. Gonzalo will then be discharged to the carebed. Person reported agreement to plan: Yes Reports/communication Outcome discussed with: ED/Personnel
--- NOTE | 2022-10-23 06:51 | PDOC.MHCN_ITS ---
Date of service: 10/23/22 Time of Service: 06:51 PHQ-9 Over the last 2 weeks, how often have you been bothered by any of the following problems? 1. Little interest or pleasure in doing things: nearly every day 2. Feeling down, depressed, or hopeless: more than half the days 3. Trouble falling or staying asleep, or sleeping too much: more than half the days 4. Feeling tired or having little energy: nearly every day 5. Poor appetite or overeating: nearly every day 6. Feeling bad about yourself - or that you are a failure or have let yourself and your family down: nearly every day 7. Trouble concentrating on things, such as reading the newspaper or watching television: nearly every day 8. Moving or speaking so slowly that other people could have noticed? - Or the opposite - being so fidgety or restless that you have been moving around a lot more than usual: nearly every day 9. Thoughts that you would be better off or of hurting yourself in some way: nearly every day Total score: 25 If you checked off any problems, how difficult have these problems made it for you to do your work, take care of things at home, or get along with other people?: extremely difficult PHQ-9 Results: Positive Source: Developed by Drs. Sea Kemp, Vanita Swenson, Everette Arias and colleagues, with an educational zoya from [employer]. Suicide Severity Rate CSSRS Have you wished you were or wished you could go to sleep and not wake up?: Yes Have you actually had any thoughts of killing yourself?: Yes CSSRS2 Have you been thinking about how you might do this?: Yes Have you had these thoughts and had some intention of acting on them?: Yes Have you started to work out or worked out the details of how to kill yourself? 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 Risk: Does risk to harm exist?: yes. Access to means: No. Risk: Low Risk Duty to warn indicated: No Asssessment/Mental Status Appearance: Disheveled Attitude: Cooperative Behavior: Unremarkable Speech: Normal Affect: Cogruent with mood Mood: Stressed, Depressed and Anxious Thought process: Unremarkable Hallucinations: No evidence Delusions: No evidence Attention: Unremarkable Perception: Not impaired Orientation: Fully orientated Memory: Intact Insight: Fair Judgement: Fair Neurovegetative Symptoms Sleep: No change Appetitie: Decrease Interests: Decrease Energy: Decrease Libido: Not applicable Substance Use: Do you use nicotine?: Yes Have you used substances in the last 7 days?: No Additional Issues: Assaultive/Threatening Behavior: No Medical Concerns: No Client engaged in active self harm w/weapon: No Threatening to run away: No Child reported abuse/neglect: No Voluntarily presenting for services: Yes Domestic violence is a concern: No Extreme Psychosis or extreme behavior is present: No Impression Gonzalo presented to the hospital last night with increased suicidal ideation. Gonzalo reports self harming prior to coming into the hospital. Gonzalo has a decreased appetite in addition to disrupted sleep pattern. Gonzalo has decreased interests in most things. Gonzalo shows fair insight and judgment by advocating for what he needs. Gonzalo will be admitted to the Carebed, today 10/23. Plan/Disposition Recommended Disposition: Crisis bed, (Gonzalo will be transferred to the Carebed later today.) facility contacted. Status of Crisis Bed acceptance: Accepted/transfer pending. Plan: Gonzaol will continue to wait at [facility] until RAILWAY TRACK PLANT OPERATOR can admit him to the Carebed. Person reported agreement to plan: Yes Reports/communication Outcome discussed with: ED/Personnel
[2022-10-23 07:42] VITALS: BP 97/63; PULSE 63; RESP 16; TEMP 36.6; O2SAT 93
--- NOTE | 2022-10-23 08:04 | W.EDPROG ---
Date of service: 10/23/22 Time of Service: 10:47 Medical Decision Making I received signout on this medically cleared 27-year-old patient pending transfer to a care bed no active behavioral shift. We will update documentation as clinically warranted. 10:45 AM A care bed was reportedly available for this patient. I discharged the patient with instructions per his original provider. Discharge Plan Disposition Patient Disposition: Other Disposition Not Listed Other Facility: Care bed volume overload Discharge Details Clinical Impression: Depression Primary Care Provider: Eric Singer ED Provider: Eliezer Nunez Home Meds and New Rx's Prescriptions: Continued sumatriptan succinate 100 mg tablet See Rx Instructions PO .COMPLEX Qty: 9 11RF Rx Instructions: take 1 tab at onset of headache; if no relief, may repeat 1 tab after at least 2 hrs; max = 2 tabs/24 hrs PO doxazosin 1 mg tablet 1 mg PO QHS Qty: 30 0RF (DME) nebulizer accessories Kit See Rx Instructions .ROUTE .MEDSUPPLY Qty: 1 0RF Rx Instructions: Please dispense tubing for nebulizer, and use as directed medroxyprogesterone [Depo-Provera] 150 mg/mL syringe 150 mg IM ONCE Qty: 1 0RF topiramate 50 mg tablet 50 mg PO QHS Qty: 90 3RF ondansetron 4 mg tablet,disintegrating 4 mg PO Q6H PRN (Reason: nausea and vomiting) Qty: 30 0RF Aristada 441 mg/1.6 mL suspension,extended rel syring 441 mg IM QMONTH Advair HFA 230-21 mcg/actuation HFA aerosol inhaler 2 puff inhalation BID Qty: 12 6RF montelukast [Singulair] 10 mg tablet 10 mg PO QHS Qty: 90 1RF testosterone cypionate 200 mg/mL kit 200 mg IM QWEEK fluoxetine [Prozac] 20 mg capsule 20 mg PO DAILY albuterol sulfate [ProAir HFA] 90 mcg/actuation HFA aerosol inhaler 2 puff Inhalation Q4H PRN Qty: 1 5RF (DME) nebulizers Misc See Rx Instructions .Route Qty: 1 0RF Rx Instructions: As directed, prn for asthma attacks ipratropium-albuterol 0.5 mg-3 mg(2.5 mg base)/3 mL solution for nebulization 3 ml inhalation QID PRN (Reason: wheezing) Qty: 90 1RF Rx Instructions: trial for acute exacerbation of asthma with pneumonia lithium carbonate 300 mg Tablet 300 mg PO QHS Discharge Instructions Instructions: Depression (ED) Additional Instructions: follow up with your primary care provider within 1-2 weeks if you feel more ill, have worsening thoughts of self harm or new symptoms such as difficulty breathing return to the emergency department
--- NOTE | 2022-10-23 11:06 | CMPROGNOTE_ITS ---
- If Service Date Differs Date of service: 10/23/22 Time of Service: 11:06 Care Management Progress Note DISPOSITION: Gonzalo is discharged to the [facility] Care Bed. 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 Transportation is provided by Care Bed staff via private vehicle. 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
--- NOTE | 2022-10-23 11:06 | PDOC.ERCMPRO ---
- If Service Date Differs Date of service: 10/23/22 Time of Service: 11:06 Care Management Progress Note DISPOSITION: Gonzalo is discharged to the [facility] Care Bed. He will follow up with his PCP, [facility] DIRECTOR BEHAVIORAL HEALTH providers, and discharge plan of care as instructed upon discharge from the Care Bed. Transportation is provided by Care Bed staff via private vehicle. - MH Services (Omit if N/A) Current MH Services: DIRECTOR BEHAVIORAL HEALTH - Status Status: Voluntary - Reason for Wait Reason for Wait: Community Placement ([facility] Care [facility])
== END 2022-10-23 10:55 | disposition other institution (70) ==
PROVIDERS: Emergency Medicine; Emergency Provider Emergency Medicine; PCP Family Medicine
DX: F32.A Depression, unspecified (principal); J45.901 Unspecified asthma with (acute) exacerbation; Z79.51 Long term (current) use of inhaled steroids
CPT/HCPCS: 36415; 80307; 81025; 99285; 80320; 81003; 81015

== ENCOUNTER 2022-10-27 17:00 | Emergency (ER) | payer MEDICAID, SELFPAY ==
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
[2022-10-27 17:04] VITALS: BP 149/86; PULSE 70; RESP 15; TEMP 36.8; O2SAT 97
[2022-10-27 17:12] VITALS: RESP 30
--- NOTE | 2022-10-27 17:15 | RT.EKG_ITS ---
APPROVED REPORT Exam: Resting ECG Reason for Exam: syncope Patient Location: E HR:67 bpm ECG Measurements Heart Rate 67 AXIS UT 179 P 139 QRSd 109 QRS 123 QT 387 T 6 QTc 409 Conclusion Sinus or ectopic atrial rhythm...P axis (-45,135) Left atrial enlargement...P, P'>60mS, <-0.15mV V1
--- NOTE | 2022-10-27 18:00 | DI.RAD_ITS ---
Exam(s) XR CHEST 2V PA LATERAL EXAM: XR CHEST 2V PA LATERAL CLINICAL HISTORY: syncope TECHNIQUE: 2D digital imaging was performed. COMPARISON: CR XR PORTABLE CHEST AP from 05/29/2022 CR XR KNEE LT 3V AP,LAT,SHANNA from 08/21/2022 FINDINGS: HEART: Normal size. Aorta: Not dilated. PULMONARY VASCULATURE: Normal. LUNGS: Clear. PLEURAL SPACE: No pleural effusion or pneumothorax. BONE:Unremarkable for age. IMPRESSION: No acute abnormality. DATA REPOSITORY: RADIATION DOSE DELIVERED:
[2022-10-27 18:12] LABS: Abs Immature Grans 0.02 10^3/uL (0.0-0.06); Absolute Eosinophil Count 0.36 10^3/uL (0.0-0.7); Absolute Lymphocyte Count 2.47 10^3/uL (1.2-3.4); Absolute Monocyte Count 0.57 10^3/uL (0.1-0.8); Absolute Neutrophil Count 5.41 10^3/uL (1.2-6.7); Basophils % 1.1; HCT 48.1 % (36.0-46.0); HGB 15.5 g/dL (11.2-15.7); Immature Grans % 0.2; Lymphocytes % 27.7; MCH 28.2 pg (27.0-33.0); MCHC 32.2 % (32.0-36.0); MCV 88 fL (80-95); MPV 11.3 fL (8.0-11.0); Monocytes % 6.4; Neutrophils % 60.6; Platelet Count 366 10^3/uL (130-400); RDW 13.4 % (11.7-14.6); RDW-SD 42.8 fL; WBC 8.93 10^3/uL (4.4-10.8)
[2022-10-27 18:21] LABS: Bilirubin Negative (Negative); Blood Negative (Negative); Clarity Clear (Clear); Glucose Negative (Negative); Ketones Negative (Negative); Leukocyte Esterase Trace (Negative); Nitrite Negative (Negative); Specific Gravity 1.025 (1.005-1.025); Urobilinogen 0.2 mg/dL (Up to 0.2); pH 5.5 (5-8)
[2022-10-27 18:30] LABS: RBC 0-2 HPF (0-2)
[2022-10-27 18:30] LABS: ALT 78 U/L (14-59); AST 69 U/L (15-37); Albumin 4.6 g/dL (3.4-5.0); Alkaline Phosphatase 149 U/L (46-116); BUN 11 mg/dL (7-18); Bilirubin, Total 0.3 mg/dL (0.2-1.0); CREATININE 1.1 mg/dL (0.55-1.02); Chloride 100 mmol/L (98-107); Estimated GFR 70.63 (mL/min/1.73m2); Glucose 101 mg/dL (74-106); Magnesium 2.1 mg/dL (1.8-2.4); Potassium 3.8 mmol/L (3.5-5.1); Sodium 137 mmol/L (136-145); Total Protein 8.9 g/dL (6.4-8.2); Troponin I < 50 ng/L (<or=60)
[2022-10-27 18:31] LABS: Bacteria Negative HPF (Negative); C & S Indicated? No; Casts Negative LPF (Negative); Crystals Negative HPF (Negative); Epithelial Cells Many HPF (Negative); Mucus Negative (Negative); Other Cells Negative (Negative)
[2022-10-27 18:31] LABS: Lithium 0.3 mmol/l (0.6-1.2)
[2022-10-27 18:33] LABS: *AMPHETAMINES SCREEN URINE Negative (Negative); *BARBITURATES SCREEN URINE Negative (Negative); *BENZODIAZEPINES SCREEN URINE Positive (Negative); Cannabinoids THC Negative (Negative); Cocaine Screen,Urine Negative (Negative); METHADONE URINE SCREEN Negative (Negative); OPIATES URINE SCREEN Negative (Negative); Tricyclic Antidepressants Negative (Negative)
--- NOTE | 2022-10-27 18:47 | DI.VRAD_ITS ---
PROCEDURE INFORMATION: Exam: XR Chest Exam date and time: 10/27/2022 6:37 PM Age: 27 years old Clinical indication: Other: Syncope TECHNIQUE: Imaging protocol: Radiologic exam of the chest. Views: 2 views. COMPARISON: CR XR PORTABLE CHEST AP 05/29/2022 10:34 AM FINDINGS: Lungs: Unremarkable. No consolidation. Pleural spaces: Unremarkable. No pleural effusion. No pneumothorax. Heart/Mediastinum: Unremarkable. No cardiomegaly. Bones/joints: Unremarkable. IMPRESSION: No acute findings. Dictated and Authenticated by: Emre Clement MD. Ordering:DEE Givens MD
[2022-10-27 20:10] VITALS: BP 110/75; PULSE 75; TEMP 36.6; O2SAT 96
--- NOTE | 2022-10-27 21:11 | NUR.NOTE ---
Sent Labs summary and discharge summary over to care beds
== END 2022-10-27 20:12 | disposition home or self-care (01) ==
PROVIDERS: Emergency Provider Physician Assistant; PCP Family Medicine
DX: F41.0 Panic disorder [episodic paroxysmal anxiety] (principal); R55 Syncope and collapse; J45.901 Unspecified asthma with (acute) exacerbation
CPT/HCPCS: 36415; 80053; 80307; 81025; 93005; 99284; 71046; 80178; 81003; 81015; 83735; 84484; 85025; 93010; 99285

== ENCOUNTER 2022-11-13 11:39 | Emergency (ER) | payer MEDICAID, SELFPAY ==
--- NOTE | 2022-11-13 11:45 | DI.RAD_ITS ---
Exam(s) XR PORTABLE CHEST AP EXAM: XR PORTABLE CHEST AP CLINICAL HISTORY: asthma, cough, uri. TECHNIQUE: 2D digital imaging was performed. COMPARISON: CR,XR XR CHEST 2V PA LATERAL from 10/27/2022 FINDINGS: Single AP portable view. Heart size is upper normal. The mediastinum is not widened. Lungs are clear. No infiltrates nor obvious pleural effusions. IMPRESSION: No acute pulmonary findings on this single AP portable view of the chest. DATA REPOSITORY: RADIATION DOSE DELIVERED:
--- NOTE | 2022-11-13 11:47 | W.ED.GENAD ---
Discharge Plan Disposition Patient Disposition: Home Condition: Improving Discharge Details Chief Complaint: SOB Clinical Impression: Cough, Asthma exacerbation Primary Care Provider: Eric Singer ED Provider: Steven Hutchins Home Meds and New Rx's Prescriptions: No Action sumatriptan succinate 100 mg tablet See Rx Instructions PO .COMPLEX Qty: 9 11RF Rx Instructions: take 1 tab at onset of headache; if no relief, may repeat 1 tab after at least 2 hrs; max = 2 tabs/24 hrs PO alprazolam 1 mg tablet 1 mg PO TID PRN (Reason: anxiety) Qty: 42 0RF (DME) nebulizer accessories Kit See Rx Instructions .ROUTE .MEDSUPPLY Qty: 1 0RF Rx Instructions: Please dispense tubing for nebulizer, and use as directed topiramate 50 mg tablet 50 mg PO QHS Qty: 90 3RF ondansetron 4 mg tablet,disintegrating 4 mg PO Q6H PRN (Reason: nausea and vomiting) Qty: 30 0RF montelukast [Singulair] 10 mg tablet 10 mg PO QHS Qty: 90 1RF testosterone cypionate 200 mg/mL kit 200 mg IM QWEEK fluoxetine [Prozac] 20 mg capsule 20 mg PO DAILY albuterol sulfate [ProAir HFA] 90 mcg/actuation HFA aerosol inhaler 2 puff Inhalation Q4H PRN Qty: 1 5RF (DME) nebulizers Misc See Rx Instructions .Route Qty: 1 0RF Rx Instructions: As directed, prn for asthma attacks mirtazapine 7.5 mg tablet 7.5 mg PO QHS Patient Comments: received call from crisis care bed nurse, dose decreased to 7.5mg lithium carbonate 300 mg Tablet 300 mg PO QHS aripiprazole 15 mg tablet 15 mg PO DAILY fluoxetine 10 mg capsule 10 mg PO QAM Discharge Instructions Instructions: Asthma (ED), Acute Cough (ED) Additional Instructions: Please follow with your primary care physician. Medical Decision Making 27-year-old female history of asthma, recent URI, presents with persistent cough nonproductive, shortness of breath and wheezing, expiratory wheeze bilaterally, speaking full sentences, normoxic nontoxic. Consider persistent URI versus new viral syndrome versus superimposed pneumonia versus simple asthma exacerbation. Screening chest x-ray, trial of nebs, steroids close reassessment likely home with close follow-up. Low suspicion for PE ACS or aortic pathology. Lower suspicion for pleural effusion or pneumothorax. 13: 06 patient feeling better after meds. X-ray negative for pneumonia. HPI General Date/Time Provider Initiated Documentation: 11/13/22 11:45. HPI Narrative: 27-year-old female history of asthma presents with URI over the past week or so, recent outpatient course of steroids, home nebulized albuterol being used intermittently, was at urgent care today to be evaluated for persistent shortness of breath and cough, however given weight at facility and need for further treatment was transported to the emergency department. Related Data Home Medications Medication Instructions Recorded Confirmed nebulizer accessories #1 ea 08/17/19 11/05/22 fluoxetine 20 mg capsule (Prozac) 20 mg PO DAILY 11/07/20 11/05/22 lithium carbonate 300 mg tablet 300 mg PO QHS 08/17/21 11/05/22 albuterol sulfate 90 mcg/actuation 2 puff inhalation Q4H PRN ##1 01/12/22 11/05/22 aerosol inhaler (ProAir HFA) sumatriptan succinate 100 mg tablet See Rx Instructions PO .COMPLEX #9 02/07/22 11/05/22 tabs ondansetron 4 mg disintegrating 4 mg PO Q6H PRN nausea and 05/16/22 11/05/22 tablet vomiting #30 tabs topiramate 50 mg tablet 50 mg PO QHS #90 tabs 05/16/22 11/05/22 montelukast 10 mg tablet 10 mg PO QHS #90 tabs 05/18/22 11/05/22 (Singulair) nebulizers #1 ea 06/07/22 11/05/22 testosterone cypionate 200 mg/mL 200 mg IM QWEEK 10/02/22 11/05/22 intramuscular kit aripiprazole 15 mg tablet 15 mg PO DAILY 10/27/22 11/05/22 fluoxetine 10 mg capsule 10 mg PO QAM 10/27/22 11/05/22 mirtazapine 7.5 mg tablet 7.5 mg PO QHS 10/31/22 11/05/22 alprazolam 1 mg tablet 1 mg PO TID PRN anxiety #42 tabs 11/05/22 11/05/22 Previous Rx's Medication Instructions Recorded nebulizer accessories #1 ea 08/17/19 albuterol sulfate 90 mcg/actuation 2 puff inhalation Q4H PRN ##1 01/12/22 aerosol inhaler (ProAir HFA) sumatriptan succinate 100 mg tablet See Rx Instructions PO .COMPLEX #9 02/07/22 tabs ondansetron 4 mg disintegrating 4 mg PO Q6H PRN nausea and 05/16/22 tablet vomiting #30 tabs topiramate 50 mg tablet 50 mg PO QHS #90 tabs 05/16/22 montelukast 10 mg tablet 10 mg PO QHS #90 tabs 05/18/22 (Singulair) nebulizers #1 ea 06/07/22 alprazolam 1 mg tablet 1 mg PO TID PRN anxiety #42 tabs 11/05/22 Allergies Allergy/AdvReac Type Severity Reaction Status Date / Time peanut Allergy Intermediate Swelling/Ed Verified 11/05/22 15:00 josy sertraline [From Zoloft] Allergy Unknown Unverified 11/05/22 15:00 citalopram AdvReac Intermediate insomnia Verified 11/05/22 15:00 ultrasound gel Allergy Intermediate Itching Uncoded 11/05/22 15:00 General CONOR: 4 Review of Systems Narrative: Review of Systems Constitutional: negative Eyes: negative ENT: negative Cardiovascular: negative Respiratory: Cough, shortness of breath, wheeze Gastrointestinal: negative : negative Musculoskeletal: negative Skin: negative Neurologic: negative Psych: negative PFSH All Active Problems (Updated 11/13/22 @ 13:07 by Steven Hutchins MD) Cough (Acute) Asthma exacerbation (Acute) Panic attack (Acute) Syncope (Chronic) Tobacco dependence (Acute) Gender dysphoria (Acute) Trigger finger, right (Acute) Knee pain, bilateral (Acute) Anxiety (Chronic) Nonspecific paroxysmal spell (Acute) Migraine headache without aura (Acute) Syncope and collapse (Acute) Contact dermatitis due to adhesive bandage (Acute) Delayed menses (Acute) Acute bronchospasm (Acute) Asthma (Chronic) Bronchitis (Acute) Severe major depression with psychotic features (Acute) Pain, dental (Acute) Contraceptive management (Acute) Status post dilation and curettage (Acute) Asthma (Chronic) Syncopal episodes (Chronic) a. With heart murmur for which she had a normal cardiac evaluation. Eczema (Chronic 06/24/14) Suicidal ideation (Acute) Panic disorder (Acute) per 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 Mikayla cedillo Asthma exacerbation (Acute) Migraine headache with aura (Acute) Pulmonary valve prolapse (Chronic 09/13/14) cardiology eval 12/22. F/u echo in 5 years Depression (Chronic 01/24/15) 04/25 - 05/02/18 Inpatient [facility] (depression with suicidal ideation) Adjustment disorder with mixed anxiety and depressed mood (Chronic) per [facility] Mikayla cedillo Major depressive disorder, recurrent episode, severe (Chronic) per 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; anesthesia given to lower tooth Urinary tract infection requiring hospitalization Family History Mother Obstructive sleep apnea syndrome uses cpap hs Father Esophageal stricture Diabetes Sister Mental disorder Depression Brother Asthma Social History Smoking/Tobacco Use Status: Current-Occasional Tobacco Type: cigarettes Tobacco: How many years used: 1 Quit status: quit date established Smoking risk assessment performed?: Yes Alcohol Intake: former Drug use: Occasionally Substance use type: marijuana Details: few times a month; pt reports none on DOS 06/10/21 What type of physical activity do you participate in: walking Frequency: daily Seatbelt use: always Do you feel safe at home: Yes Do you feel safe in your relationship?: Yes Female Reproductive History Menstrual control method: progestin IUCD History History 2 Para 1 Hx # Term Pregnancies 1 Multiple births Hx # Pregnancies Ectopic pregnancies AB induced Hx Number of Living Children 1 AB spontaneous 1 Past Pregnancies Del. Date GA/Weeks # Preg Succ Route Wgt Sex Labor Lgth Anesthesia Location Prov Complic 03/03/16 39 No vaginal 2920.001 g Female Marjan 04/20/21 6 No KJ Exam Narrative Exam Narrative: Physical Examination General: alert, awake, cooperative, resting comfortably, no acute distress HEENT: normocephalic, atraumatic; PERRL, EOM intact, conjunctiva normal; no nasal discharge; moist mucous membranes, oral and pharyngeal mucosa normal, tolerating secretions Neck: supple, trachea midline; full ROM Chest: normal to inspection Respiratory: Expiratory wheeze bilaterally, speaking full sentences Cardiac: regular rate, regular rhythm, S1S2 intact, no murmurs rubs or gallops GI: abdomen soft, non-tender, non-distended; no palpable mass or hepatosplenomegaly Skin: no lesions, rashes or trauma appreciated Neuro: AAOx3, normal speech, moving all extremities Psych: Appropriate mood and affect
[2022-11-13 11:50] VITALS: BP 112/72; PULSE 66; RESP 24; TEMP 36.6; O2SAT 97
[2022-11-13] MEDS: Albuterol/Ipratropium 3 ML UPD VIAL 9 ML UPD (12:03)
[2022-11-13] MEDS: Dexamethasone 10 MG/ML VIAL IM (12:04)
[2022-11-13 12:13] VITALS: RESP 16
[2022-11-13 13:19] VITALS: BP 117/61; PULSE 74; RESP 14; O2SAT 99
== END 2022-11-13 13:36 | disposition home or self-care (01) ==
PROVIDERS: Emergency Provider Emergency Medicine; PCP Family Medicine
DX: J45.901 Unspecified asthma with (acute) exacerbation (principal); R05.9 Cough, unspecified
CPT/HCPCS: 96372; 99284; 71045; 99283; J1100; J7620

== ENCOUNTER 2023-01-12 20:19 | Emergency (ER) | payer MEDICAID, SELFPAY ==
[2023-01-12 20:23] VITALS: BP 112/74; PULSE 90; RESP 22; TEMP 36.8; O2SAT 97
--- NOTE | 2023-01-12 20:33 | NUR.NOTE ---
Pt states she took 400mg ibuprofen at 1600 w no relief. Pt also states she iced and elevated L leg. +CSMTs noted.
--- NOTE | 2023-01-12 20:45 | DI.RAD_ITS ---
Exam(s) XR KNEE LT 4V AP,LAT,SHANNA,PAT EXAM: XR KNEE LT 4V AP,LAT,SHANNA,PAT CLINICAL HISTORY: infrapetellar knee pain after fall. TECHNIQUE: 2D digital imaging was performed. COMPARISON: CR XR KNEE LT 3V AP,LAT,SHANNA from 08/21/2022 FINDINGS: Four views There is no evidence of fracture or joint effusion. Bone density normal. Patella unremarkable. No degenerative changes. No osseous lesions. IMPRESSION: No significant osseous findings in the knee. DATA REPOSITORY: RADIATION DOSE DELIVERED:
--- NOTE | 2023-01-12 20:47 | W.ED.GENAD ---
Discharge Plan Disposition Patient Disposition: Home Condition: Good Discharge Details Clinical Impression: Left knee sprain Primary Care Provider: Eric Singer ED Provider: Jose Armando Whiting Home Meds and New Rx's Prescriptions: No Action alprazolam 1 mg tablet 1 mg PO TID PRN (Reason: anxiety) Qty: 42 0RF (DME) nebulizer accessories Kit See Rx Instructions .ROUTE .MEDSUPPLY Qty: 1 0RF Rx Instructions: Please dispense tubing for nebulizer, and use as directed montelukast [Singulair] 10 mg tablet 10 mg PO QHS Qty: 90 1RF topiramate 100 mg tablet 100 mg PO QHS Qty: 90 3RF testosterone cypionate 200 mg/mL kit 200 mg IM QWEEK ipratropium-albuterol 0.5 mg-3 mg(2.5 mg base)/3 mL solution for nebulization 3 ml inhalation Q4H PRN (Reason: wheezing) Qty: 180 0RF Rx Instructions: Asthma exacerbation--start by taking 3x/d & q4h PRN SOB, wheeze, cough. albuterol sulfate [ProAir HFA] 90 mcg/actuation HFA aerosol inhaler 2 puff Inhalation Q4H PRN Qty: 1 5RF (DME) nebulizers Misc See Rx Instructions .Route Qty: 1 0RF Rx Instructions: As directed, prn for asthma attacks sumatriptan succinate 100 mg tablet See Rx Instructions PO .COMPLEX Qty: 9 5RF Rx Instructions: take 1 tab at onset of headache; if no relief, may repeat 1 tab after at least 2 hrs; max = 2 tabs/24 hrs PO ondansetron 4 mg tablet,disintegrating 4 mg PO Q6H PRN (Reason: nausea and vomiting) Qty: 30 0RF lithium carbonate 300 mg Tablet 300 mg PO QHS aripiprazole 15 mg tablet 15 mg PO DAILY amoxicillin-pot clavulanate 875-125 mg tablet 1 tab PO BID Qty: 14 0RF Discharge Instructions Instructions: Knee Sprain (ED) Additional Instructions: At this time the x-ray is negative for any evidence of fracture. I do suspect you have mild ligamentous injury. Please use the knee brace in the crutches for the next 1 to 2 weeks. Gradually start bearing weight again on your knee after a week of rest. If you still have consistent pain that is not improving even after 1 to 2 weeks of rest, you may need further assessment by an employment training specialist. Please ice your knee frequently, use Tylenol and Motrin as needed for pain. If you notice any worsening of your symptoms, or any new symptoms such as vomiting, diarrhea, fever, chills, shortness of breath, chest pain, numbness, weakness, or fainting , please return immediately to the emergency department for reevaluation. Please follow up with your primary care provider as soon as possible for reassessment and reevaluation. As always, it was a pleasure participating in your medical care today. Referrals: Eric Singer, [Primary Care Provider] - Discharge Data Discharge Date/Time-TO BE ENTERED AT DEPARTURE: 01/12/23 22:04 Medical Decision Making 27-year-old female who is transitioning to male, who goes by Gonzalo, presents today for evaluation of left knee pain. Patient was skateboarding a few hours ago when he fell and twisted his knee posteriorly. Patient has had pain when ambulating since then. Patient states that the first few steps do not hurt but after bearing weight for a few minutes it begins to ache in the anterior aspect. Denies hearing any pop. Denies any actual trauma to the knee. He did take ibuprofen with no significant improvement. No other complaints at this time. Exam demonstrates a well-appearing patient, knee is stable, no significant bruising or swelling. Mild tenderness at the inferior aspect of the patella and superior aspect of the tibial plateau. Suspect mild ligamentous injury. Low likelihood for osseous fracture. We will get an x-ray for further assessment though. Will give Tylenol monitor closely and reassess. Xray negative. Patient stable for discharge. Symptoms are inconsistent with tibial plateau fracture I have extensively reviewed the treatment plan and discharge instructions with the patient. I have addressed all patient concerns at this time. The patient was made aware of what symptoms to monitor for that would warrant a return to the emergency department. Discussed the plan with the patient, they demonstrate verbal understanding and agreement with our assessment and plan at this time. The documentation in this chart was dictated using [employer] dictation software. Please excuse any dictation errors. FINDINGS: Four views There is no evidence of fracture or joint effusion.? Bone density normal.? Patella unremarkable.? No degenerative changes.? No osseous lesions. IMPRESSION: No significant osseous findings in the knee. HPI General Date/Time Provider Initiated Documentation: 01/12/23 20:46. HPI Narrative: 27-year-old female who is transitioning to male, who goes by Gonzalo, presents today for evaluation of left knee pain. Patient was skateboarding a few hours ago when he fell and twisted his knee posteriorly. Patient has had pain when ambulating since then. Patient states that the first few steps do not hurt but after bearing weight for a few minutes it begins to ache in the anterior aspect. Denies hearing any pop. Denies any actual trauma to the knee. He did take ibuprofen with no significant improvement. No other complaints at this time. Related Data Home Medications Medication Instructions Recorded Confirmed nebulizer accessories #1 ea 08/17/19 01/13/23 lithium carbonate 300 mg tablet 300 mg PO QHS 08/17/21 01/13/23 albuterol sulfate 90 mcg/actuation 2 puff inhalation Q4H PRN ##1 01/12/22 01/13/23 aerosol inhaler (ProAir HFA) montelukast 10 mg tablet 10 mg PO QHS #90 tabs 05/18/22 01/13/23 (Singulair) nebulizers #1 ea 06/07/22 01/13/23 testosterone cypionate 200 mg/mL 200 mg IM QWEEK 10/02/22 01/13/23 intramuscular kit aripiprazole 15 mg tablet 15 mg PO DAILY 10/27/22 01/13/23 alprazolam 1 mg tablet 1 mg PO TID PRN anxiety #42 tabs 11/05/22 01/13/23 ipratropium 0.5 mg-albuterol 3 mg 3 ml inhalation Q4H PRN wheezing 11/15/22 01/13/23 (2.5 mg base)/3 mL nebulization #180 mL soln ondansetron 4 mg disintegrating 4 mg PO Q6H PRN nausea and 11/22/22 01/13/23 tablet vomiting #30 tabs sumatriptan succinate 100 mg tablet See Rx Instructions PO .COMPLEX #9 11/22/22 01/13/23 tabs topiramate 100 mg tablet 100 mg PO QHS #90 tabs 11/26/22 01/13/23 amoxicillin 875 mg-potassium 1 tab PO BID #14 tabs 01/13/23 clavulanate 125 mg tablet Previous Rx's Medication Instructions Recorded nebulizer accessories #1 ea 08/17/19 albuterol sulfate 90 mcg/actuation 2 puff inhalation Q4H PRN ##1 01/12/22 aerosol inhaler (ProAir HFA) montelukast 10 mg tablet 10 mg PO QHS #90 tabs 05/18/22 (Singulair) nebulizers #1 ea 06/07/22 alprazolam 1 mg tablet 1 mg PO TID PRN anxiety #42 tabs 11/05/22 ipratropium 0.5 mg-albuterol 3 mg 3 ml inhalation Q4H PRN wheezing 11/15/22 (2.5 mg base)/3 mL nebulization #180 mL soln ondansetron 4 mg disintegrating 4 mg PO Q6H PRN nausea and 11/22/22 tablet vomiting #30 tabs sumatriptan succinate 100 mg tablet See Rx Instructions PO .COMPLEX #9 11/22/22 tabs topiramate 100 mg tablet 100 mg PO QHS #90 tabs 11/26/22 amoxicillin 875 mg-potassium 1 tab PO BID #14 tabs 01/13/23 clavulanate 125 mg tablet Allergies Allergy/AdvReac Type Severity Reaction Status Date / Time peanut Allergy Intermediate Swelling/Ed Verified 01/13/23 12:42 josy sertraline [From Zoloft] Allergy Unknown Unverified 01/13/23 12:42 citalopram AdvReac Intermediate insomnia Verified 01/13/23 12:42 ultrasound gel Allergy Intermediate Itching Uncoded 01/13/23 12:42 General Stated Complaint: Orthopedic CONOR: 3 Review of Systems All systems reviewed & are unremarkable except as noted in HPI and below PFSH All Active Problems (Updated 01/13/23 @ 12:56 by Moe Knutson MD) Left knee sprain (Acute) Disorder of left ear lobe (Acute) Tobacco dependence (Acute) Gender dysphoria (Acute) Trigger finger, right (Acute) Knee pain, bilateral (Acute) Anxiety (Chronic) Nonspecific paroxysmal spell (Acute) Migraine headache without aura (Acute) Syncope and collapse (Acute) Contact dermatitis due to adhesive bandage (Acute) Delayed menses (Acute) Acute bronchospasm (Acute) Asthma (Chronic) Bronchitis (Acute) Severe major depression with psychotic features (Acute) Pain, dental (Acute) Contraceptive management (Acute) Status post dilation and curettage (Acute) Asthma (Chronic) Syncopal episodes (Chronic) a. With heart murmur for which she had a normal cardiac evaluation. 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; anesthesia given to lower tooth Urinary tract infection requiring hospitalization Family History Mother Obstructive sleep apnea syndrome uses cpap hs Father Esophageal stricture Diabetes Sister Mental disorder Depression Brother Asthma Social History Smoking/Tobacco Use Status: Current-Occasional Tobacco Type: cigarettes Tobacco: How many years used: 1 Quit status: quit date established Smoking risk assessment performed?: Yes Alcohol Intake: former Drug use: Occasionally Substance use type: marijuana Details: few times a month; pt reports none on DOS 06/10/21 What type of physical activity do you participate in: walking Frequency: daily Seatbelt use: always Do you feel safe at home: Yes Do you feel safe in your relationship?: Yes Female Reproductive History Menstrual control method: progestin IUCD History History 2 Para 1 Hx # Term Pregnancies 1 Multiple births Hx # Pregnancies Ectopic pregnancies AB induced Hx Number of Living Children 1 AB spontaneous 1 Past Pregnancies Del. Date GA/Weeks # Preg Succ Route Wgt Sex Labor Lgth Anesthesia Location Prov Complic 03/03/16 39 No vaginal 2920.001 g Female Marjan 04/20/21 6 No KJ Exam Narrative Exam Narrative: 1.Const: Well-nourished, Well-developed, appearing stated age 2.Eyes: PERRL, no conjunctival injection, and symmetrical lids. 3.ENT: Atraumatic external nose and ears. Moist MM. Neck: Symmetric, trachea midline, No thyromegaly. 4.CVS: +S1/S2, No murmurs or gallops. Peripheral pulses 2+ and equal in all extremities. Brisk capillary refill in all extremities. 5.RESP: Unlabored respiratory effort. Clear to auscultation bilaterally. No wheezes rales or rhonchi 6.GI: Soft, Nontender/Nondistended, No hepatosplenomegaly. No guarding or rebound. 7.MSK: Normocephalic/Atraumatic, Extremities w/o deformity. No cyanosis or clubbing, Normal movement of all extremities Left knee: The knee is stable to varus, valgus, and anterior drawer stress. No deformity. Patellar grind test is negative but does demonstrate minimal pain.. Julia test is negative for pain. Patient is able to walk without difficulty. No edema or warmth to the joint. No ttp to the patella, or fibular head. Minimal tenderness at the superior aspect of the tibial plateau. 8.Skin: Warm, Dry. No rashes or lesions. 9.Neuro: pattern keeper II-XII grossly intact. Sensation grossly intact, no focal neurologic deficits. 10.Psych: (AAO) x3. Appropriate mood and affect Course Vital Signs Vital signs: Vital Signs Temperature 36.8 C 01/12/23 20:23 Pulse 90 01/12/23 20:23 Respiratory Rate 22 01/12/23 20:23 Blood Pressure 112/74 01/12/23 20:23 Pulse Oximetry 97 01/12/23 20:23 Temperature 36.8 C 01/12/23 20:23 Temperature Source Temporal Artery Scan 01/12/23 20:23 Pulse 90 01/12/23 20:23 Respiratory Rate 22 01/12/23 20:23 Respiratory Effort Normal 01/12/23 20:26 Blood Pressure 112/74 01/12/23 20:23 Pulse Oximetry 97 01/12/23 20:23 Oxygen Delivery Method Room Air 01/12/23 20:23 Oxygen Flow Rate 0 01/12/23 20:23 Pain Level 4 01/12/23 20:23 Comment up to 6 with movement 01/12/23 20:23
[2023-01-12] MEDS: Acetaminophen 500 MG TAB 1000 MG PO (20:54)
--- NOTE | 2023-01-12 21:45 | DI.VRAD_ITS ---
PROCEDURE INFORMATION: Exam: XR Left Knee Exam date and time: 01/12/2023 8:57 PM Age: 27 years old Clinical indication: Left; Patient HX: Infrapatellar knee pain after fall TECHNIQUE: Imaging protocol: Radiologic exam of the left knee. Views: 4 or more views. COMPARISON: MR LOWER JOINT LT WO 09/24/2022 1:05 PM FINDINGS: Bones/joints: No acute fracture or dislocation. Soft tissues: Unremarkable. IMPRESSION: No acute findings. Dictated and Authenticated by: Marguerite Rios MD. Ordering:WARD Suárez MD
[2023-01-12 22:03] VITALS: BP 132/72; PULSE 72; RESP 16; O2SAT 99
== END 2023-01-12 22:04 | disposition home or self-care (01) ==
PROVIDERS: Emergency Provider Student in an Organized Health Care Education/Training Program; PCP Family Medicine
DX: S83.92XA Sprain of unspecified site of left knee, initial encounter (principal); V00.131A Fall from skateboard, initial encounter
CPT/HCPCS: 99283; 73564

== ENCOUNTER 2023-01-13 12:33 | Emergency (ER) | payer MEDICAID, SELFPAY ==
[2023-01-13 12:38] VITALS: BP 110/68; PULSE 84; RESP 14; TEMP 37; O2SAT 98
--- NOTE | 2023-01-13 12:51 | ED.GENADUL_ITS ---
Discharge Plan Disposition Patient Disposition: Home Condition: Stable Discharge Details Clinical Impression: Disorder of left ear lobe Primary Care Provider: Eric Singer ED Provider: Moe Knutson Home Meds and New Rx's Prescriptions: New amoxicillin-pot clavulanate 875-125 mg tablet 1 tab PO BID Qty: 14 0RF Continued alprazolam 1 mg tablet 1 mg PO TID PRN (Reason: anxiety) Qty: 42 0RF (DME) nebulizer accessories Kit See Rx Instructions .ROUTE .MEDSUPPLY Qty: 1 0RF Rx Instructions: Please dispense tubing for nebulizer, and use as directed montelukast [Singulair] 10 mg tablet 10 mg PO QHS Qty: 90 1RF topiramate 100 mg tablet 100 mg PO QHS Qty: 90 3RF testosterone cypionate 200 mg/mL kit 200 mg IM QWEEK ipratropium-albuterol 0.5 mg-3 mg(2.5 mg base)/3 mL solution for nebulization 3 ml inhalation Q4H PRN (Reason: wheezing) Qty: 180 0RF Rx Instructions: Asthma exacerbation--start by taking 3x/d & q4h PRN SOB, wheeze, cough. albuterol sulfate [ProAir HFA] 90 mcg/actuation HFA aerosol inhaler 2 puff Inhalation Q4H PRN Qty: 1 5RF (DME) nebulizers Misc See Rx Instructions .Route Qty: 1 0RF Rx Instructions: As directed, prn for asthma attacks sumatriptan succinate 100 mg tablet See Rx Instructions PO .COMPLEX Qty: 9 5RF Rx Instructions: take 1 tab at onset of headache; if no relief, may repeat 1 tab after at least 2 hrs; max = 2 tabs/24 hrs PO ondansetron 4 mg tablet,disintegrating 4 mg PO Q6H PRN (Reason: nausea and vomiting) Qty: 30 0RF lithium carbonate 300 mg Tablet 300 mg PO QHS aripiprazole 15 mg tablet 15 mg PO DAILY Discharge Instructions Additional Instructions: if you choose to have this repaired in the future you can discuss with your primary care provider seeing a plastic surgeon If you feel more ill, have severe worsening pain or fevers return to the emergency department Medical Decision Making 27 yo male who comes in with left ear lobe issue. He has had an ear lobe spacer in and recently increased the size of the spacer. Overnight while sleeping the spacer fell out and patient noted the bottom portion of his ear lobe had opened up. He has mild erythema of the medial portion of the ear lobe that is not warm to touch, normal tm's, no swelling. The left ear lobe has a crease down the middle with no open wounds, appears he used to big of a spacer and caused the ear lobe to just be open. There is no lacs or other abnormalities to suture. Advised he can see a plastic surgeon in the future if he wishes for possible repair. Will place on antibiotics though suspicion for associated cellulitis is low. Usual customary return precautions given Differential Diagnosis Differential Diagnosis: ear spacer issue, erosion, cellulitis HPI General Mode of arrival: ambulatory . Date/Time Provider Initiated Documentation: 01/13/23 12:37 . Limitations to Documentation: no limitations . Information obtained by: patient . History of Present Illness 27 year old F presents to the emergency department with the chief complaint of left ear spacer fell out, Patient started experiencing this day(s) (1) and it has been constant. No relieving factors improve symptom(s), No exacerbating factors reported . Patient notes no other symptoms.. Patient did receive the following treatments prior to arrival, none Related Data Home Medications Medication Instructions Recorded Confirmed nebulizer accessories #1 ea 08/17/19 01/13/23 lithium carbonate 300 mg tablet 300 mg PO QHS 08/17/21 01/13/23 albuterol sulfate 90 mcg/actuation 2 puff inhalation Q4H PRN ##1 01/12/22 01/13/23 aerosol inhaler (ProAir HFA) montelukast 10 mg tablet 10 mg PO QHS #90 tabs 05/18/22 01/13/23 (Singulair) nebulizers #1 ea 06/07/22 01/13/23 testosterone cypionate 200 mg/mL 200 mg IM QWEEK 10/02/22 01/13/23 intramuscular kit aripiprazole 15 mg tablet 15 mg PO DAILY 10/27/22 01/13/23 alprazolam 1 mg tablet 1 mg PO TID PRN anxiety #42 tabs 11/05/22 01/13/23 ipratropium 0.5 mg-albuterol 3 mg 3 ml inhalation Q4H PRN wheezing 11/15/22 01/13/23 (2.5 mg base)/3 mL nebulization #180 mL soln ondansetron 4 mg disintegrating 4 mg PO Q6H PRN nausea and 11/22/22 01/13/23 tablet vomiting #30 tabs sumatriptan succinate 100 mg tablet See Rx Instructions PO .COMPLEX #9 11/22/22 01/13/23 tabs topiramate 100 mg tablet 100 mg PO QHS #90 tabs 11/26/22 01/13/23 amoxicillin 875 mg-potassium 1 tab PO BID #14 tabs 01/13/23 clavulanate 125 mg tablet Previous Rx's Medication Instructions Recorded nebulizer accessories #1 ea 08/17/19 albuterol sulfate 90 mcg/actuation 2 puff inhalation Q4H PRN ##1 01/12/22 aerosol inhaler (ProAir HFA) montelukast 10 mg tablet 10 mg PO QHS #90 tabs 05/18/22 (Singulair) nebulizers #1 ea 06/07/22 alprazolam 1 mg tablet 1 mg PO TID PRN anxiety #42 tabs 11/05/22 ipratropium 0.5 mg-albuterol 3 mg 3 ml inhalation Q4H PRN wheezing 11/15/22 (2.5 mg base)/3 mL nebulization #180 mL soln ondansetron 4 mg disintegrating 4 mg PO Q6H PRN nausea and 11/22/22 tablet vomiting #30 tabs sumatriptan succinate 100 mg tablet See Rx Instructions PO .COMPLEX #9 11/22/22 tabs topiramate 100 mg tablet 100 mg PO QHS #90 tabs 11/26/22 amoxicillin 875 mg-potassium 1 tab PO BID #14 tabs 01/13/23 clavulanate 125 mg tablet Allergies Allergy/AdvReac Type Severity Reaction Status Date / Time peanut Allergy Intermediate Swelling/Ed Verified 01/13/23 12:42 josy sertraline [From Zoloft] Allergy Unknown Unverified 01/13/23 12:42 citalopram AdvReac Intermediate insomnia Verified 01/13/23 12:42 ultrasound gel Allergy Intermediate Itching Uncoded 01/13/23 12:42 General Stated Complaint: EarProblem CONOR: 4 Review of Systems All systems reviewed & are unremarkable except as noted in HPI and below Constitutional Constitutional: Denies chills, Denies fever(s) and Denies weakness Cardiovascular Cardiovascular: Denies chest pain and Denies dyspnea Respiratory Respiratory: Denies cough and Denies dyspnea Gastrointestinal Gastrointestinal: Denies abdominal pain, Denies nausea and Denies vomiting Musculoskeletal Musculoskeletal: Denies joint swelling Integumentary/Breasts Skin/Breast: Denies rash Neurologic Neurologic: Denies weakness [facility] All Active Problems (Updated 01/13/23 @ 12:56 by Moe Knutson MD) Left knee sprain (Acute) Disorder of left ear lobe (Acute) Tobacco dependence (Acute) Gender dysphoria (Acute) Trigger finger, right (Acute) Knee pain, bilateral (Acute) Anxiety (Chronic) Nonspecific paroxysmal spell (Acute) Migraine headache without aura (Acute) Syncope and collapse (Acute) Contact dermatitis due to adhesive bandage (Acute) Delayed menses (Acute) Acute bronchospasm (Acute) Asthma (Chronic) Bronchitis (Acute) Severe major depression with psychotic features (Acute) Pain, dental (Acute) Contraceptive management (Acute) Status post dilation and curettage (Acute) Asthma (Chronic) Syncopal episodes (Chronic) a. With heart murmur for which she had a normal cardiac evaluation. Eczema (Chronic 06/24/14) Suicidal ideation (Acute) Panic disorder (Acute) per 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 Mikayla cedillo Asthma exacerbation (Acute) Migraine headache with aura (Acute) Pulmonary valve prolapse (Chronic 09/13/14) cardiology eval 12/22. F/u echo in 5 years Depression (Chronic 01/24/15) 04/25 - 05/02/18 Inpatient [facility] (depression with suicidal ideation) Adjustment disorder with mixed anxiety and depressed mood (Chronic) per [facility] Mikayla cedillo Major depressive disorder, recurrent episode, severe (Chronic) per [facility] Mikayla cedillo Medical History Allergic rhinitis Alopecia (capitis) totalis Asthma Atopic dermatitis [id number] transgender person Preferred name: Teodora He/Him pronouns 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; anesthesia given to lower tooth Urinary tract infection requiring hospitalization Family History Mother Obstructive sleep apnea syndrome uses cpap hs Father Esophageal stricture Diabetes Sister Mental disorder Depression Brother Asthma Social History Smoking/Tobacco Use Status: Current-Occasional Tobacco Type: cigarettes Tobacco: How many years used: 1 Quit status: quit date established Smoking risk assessment performed?: Yes Alcohol Intake: former Drug use: Occasionally Substance use type: marijuana Details: few times a month; pt reports none on DOS 06/10/21 What type of physical activity do you participate in: walking Frequency: daily Seatbelt use: always Do you feel safe at home: Yes Do you feel safe in your relationship?: Yes Female Reproductive History Menstrual control method: progestin IUCD History History 2 Para 1 Hx # Term Pregnancies 1 Multiple births Hx # Pregnancies Ectopic pregnancies AB induced Hx Number of Living Children 1 AB spontaneous 1 Past Pregnancies Del. Date GA/Weeks # Preg Succ Route Wgt Sex Labor Lgth Anesth esia Location [facility] 03/03/16 39 No vaginal 2920.001 g Female Kelvin it 04/20/21 6 No KJ Exam Const General: no acute distress Orientation: alert HENMT Head: normal to inspection Ears: TM's normal bilaterally General nose exam: external nose normal Mouth: moist mucous membranes Eyes General: appearance normal, both eyes and all related structures Neck Neck: normal visual inspection Resp Effort & Inspection: normal respiratory effort and able to speak in complete sentences Cardio Rate: regular rate Skin General skin exam: no rashes or lesions noted Neuro General: patient alert and patient oriented x3 Extrem General: normal to inspection Psych Mental Status: mental status grossly normal Course Vital Signs Vital signs: Vital Signs Temperature 37 C 01/13/23 12:38 Pulse 84 01/13/23 12:38 Respiratory Rate 14 01/13/23 12:38 Blood Pressure 110/68 01/13/23 12:38 Pulse Oximetry 98 01/13/23 12:38 Temperature 37 C 01/13/23 12:38 Temperature Source Tympanic 01/13/23 12:38 Pulse 84 01/13/23 12:38 Respiratory Rate 14 01/13/23 12:38 Respiratory Effort Normal 01/13/23 12:42 Blood Pressure 110/68 01/13/23 12:38 Blood Pressure Position Sitting 01/13/23 12:38 Pulse Oximetry 98 01/13/23 12:38 Oxygen Delivery Method Room Air 01/13/23 12:38 Oxygen Flow Rate 0 01/13/23 12:38 Pain Level 2 01/13/23 12:38
== END 2023-01-13 13:03 | disposition home or self-care (01) ==
PROVIDERS: Emergency Provider Emergency Medicine; PCP Family Medicine
DX: H93.8X2 Other specified disorders of left ear (principal); L53.9 Erythematous condition, unspecified
CPT/HCPCS: 99283

== ENCOUNTER 2023-02-05 00:23 | Emergency (ER) | payer MEDICAID, SELFPAY ==
[2023-02-05 00:24] VITALS: BP 134/114; PULSE 83; RESP 18; TEMP 36.6; O2SAT 99
[2023-02-05] MEDS: diphenhydrAMINE 50 MG/ML VIAL 25 MG IVP (00:32)
[2023-02-05] MEDS: Ketorolac 15 MG/ML VIAL IVP (00:32)
[2023-02-05] MEDS: methylPREDNISolone SUCC 125 MG VIAL IVP (00:32)
[2023-02-05] MEDS: Normal Saline 1,000 ML 1000 ML IV (00:33)
[2023-02-05] MEDS: Prochlorperazine 10 MG/2 ML VIAL IVP (00:33)
--- NOTE | 2023-02-05 01:21 | W.ED.GENAD ---
Discharge Plan Disposition Patient Disposition: Home Condition: Good Discharge Details Clinical Impression: Headache, migraine, Pain, dental Primary Care Provider: Eric Singer ED Provider: Jose Armando Whiting Home Meds and New Rx's Prescriptions: New amoxicillin-pot clavulanate 875-125 mg tablet 1 tab PO BID Qty: 14 0RF No Action terbinafine HCl 250 mg tablet 250 mg PO DAILY 14 Days Qty: 14 0RF alprazolam 1 mg tablet 1 mg PO TID PRN (Reason: anxiety) Qty: 42 0RF (DME) nebulizer accessories Kit See Rx Instructions .ROUTE .MEDSUPPLY Qty: 1 0RF Rx Instructions: Please dispense tubing for nebulizer, and use as directed montelukast [Singulair] 10 mg tablet 10 mg PO QHS Qty: 90 1RF testosterone cypionate 200 mg/mL kit 200 mg IM QWEEK ipratropium-albuterol 0.5 mg-3 mg(2.5 mg base)/3 mL solution for nebulization 3 ml inhalation Q4H PRN (Reason: wheezing) Qty: 180 0RF Rx Instructions: Asthma exacerbation--start by taking 3x/d & q4h PRN SOB, wheeze, cough. albuterol sulfate [ProAir HFA] 90 mcg/actuation HFA aerosol inhaler 2 puff Inhalation Q4H PRN Qty: 1 5RF (DME) nebulizers Misc See Rx Instructions .Route Qty: 1 0RF Rx Instructions: As directed, prn for asthma attacks sumatriptan succinate 100 mg tablet See Rx Instructions PO .COMPLEX Qty: 9 5RF Rx Instructions: take 1 tab at onset of headache; if no relief, may repeat 1 tab after at least 2 hrs; max = 2 tabs/24 hrs PO ondansetron 4 mg tablet,disintegrating 4 mg PO Q6H PRN (Reason: nausea and vomiting) Qty: 30 0RF lithium carbonate 300 mg Tablet 300 mg PO QHS aripiprazole 15 mg tablet 15 mg PO DAILY Discharge Instructions Instructions: Toothache (ED), General Headache (ED) Additional Instructions: Please take 800 mg of ibuprofen every 6 hours and 1000 mg of Tylenol every 6 hours to help with the inflammation and pain. These are the maximum doses. Please take the antibiotic as directed to help with the infection in your tooth. It is been sent to your pharmacy on file. Please use the dental list that we have provided to contact the dentist for prompt follow-up and evaluation for tooth removal. If you notice any worsening of your symptoms, or any new symptoms such as difficulty swallowing, difficulty breathing, vomiting, diarrhea, fever, chills, shortness of breath, chest pain, numbness, weakness, or fainting , please return immediately to the emergency department for reevaluation. Please follow up with your primary care provider as soon as possible for reassessment and reevaluation. As always, it was a pleasure participating in your medical care today. Referrals: Eric Singer DO [Primary Care Provider] - Medical Decision Making This is a 27-year-old female with a past medical history of eczema, mitral valve prolapse, migraines, adjustment disorder, depression, reactive airway disease, who is transitioning to male and identifies as Gonzalo who presents today for evaluation of headache and dental pain. Patient states that she has had mild dental pain for the last few days, however this is transitioned into a migraine headache. She states that headache feels identical to her previous migraines. It is aching in the front and temples. It is pounding, made worse with light and loud noise. It is not improved by Tylenol or Motrin. She denies any fever or chills. She denies any chest pain or shortness of breath. No other complaints at this time. She has not been able to set up a time to be seen by dentist yet. She denies any discharge from her mouth, or difficulty swallowing or drinking. The patient denies any headache red flags of worst headache of life, thunderclap headache, neck pain, fever, chills, concerning family history of polycystic kidney disease, Marfan syndrome, Chanel-Danlos syndrome, abdominal aortic aneurysm, aortic dissection, or intracranial aneurysm. Exam demonstrates well-appearing female, no neurologic deficits, no nuchal rigidity. No meningeal signs. Notable dental caries in the lower molars, no evidence of periapical abscess. Concern for dental irritation in conjunction with migraine headache. We will give a migraine cocktail, as well as Augmentin for dental pain/irritation. We will monitor closely and reassess. 2:20 AM On reassessment patient is feeling much better. Headache resolved. Will give Augmentin for home use for treatment of the dental infection. No current evidence of meningitis or other concerning abnormality intracranially based on clinical assessment. Patient stable for discharge. Discussed red flags for which to return. I have extensively reviewed the treatment plan and discharge instructions with the patient. I have addressed all patient concerns at this time. The patient was made aware of what symptoms to monitor for that would warrant a return to the emergency department. Discussed the plan with the patient, they demonstrate verbal understanding and agreement with our assessment and plan at this time. The documentation in this chart was dictated using [employer] dictation software. Please excuse any dictation errors. HPI General Date/Time Provider Initiated Documentation: 02/05/23 00:26. HPI Narrative: This is a 27-year-old female with a past medical history of eczema, mitral valve prolapse, migraines, adjustment disorder, depression, reactive airway disease, who is transitioning to male and identifies as Gonzalo who presents today for evaluation of headache and dental pain. Patient states that she has had mild dental pain for the last few days, however this is transitioned into a migraine headache. She states that headache feels identical to her previous migraines. It is aching in the front and temples. It is pounding, made worse with light and loud noise. It is not improved by Tylenol or Motrin. She denies any fever or chills. She denies any chest pain or shortness of breath. No other complaints at this time. She has not been able to set up a time to be seen by dentist yet. She denies any discharge from her mouth, or difficulty swallowing or drinking. The patient denies any headache red flags of worst headache of life, thunderclap headache, neck pain, fever, chills, concerning family history of polycystic kidney disease, Marfan syndrome, Chanel-Danlos syndrome, abdominal aortic aneurysm, aortic dissection, or intracranial aneurysm. Related Data Home Medications Medication Instructions Recorded Confirmed nebulizer accessories #1 ea 08/17/19 02/05/23 lithium carbonate 300 mg tablet 300 mg PO QHS 08/17/21 02/05/23 albuterol sulfate 90 mcg/actuation 2 puff inhalation Q4H PRN ##1 01/12/22 02/05/23 aerosol inhaler (ProAir HFA) montelukast 10 mg tablet 10 mg PO QHS #90 tabs 05/18/22 02/05/23 (Singulair) nebulizers #1 ea 06/07/22 02/05/23 testosterone cypionate 200 mg/mL 200 mg IM QWEEK 10/02/22 02/05/23 intramuscular kit aripiprazole 15 mg tablet 15 mg PO DAILY 10/27/22 02/05/23 ipratropium 0.5 mg-albuterol 3 mg 3 ml inhalation Q4H PRN wheezing 11/15/22 02/05/23 (2.5 mg base)/3 mL nebulization #180 mL soln ondansetron 4 mg disintegrating 4 mg PO Q6H PRN nausea and 11/22/22 02/05/23 tablet vomiting #30 tabs sumatriptan succinate 100 mg tablet See Rx Instructions PO .COMPLEX #9 11/22/22 02/05/23 tabs alprazolam 1 mg tablet 1 mg PO TID PRN anxiety #42 tabs 01/25/23 02/05/23 terbinafine HCl 250 mg tablet 250 mg PO DAILY 14 days #14 tabs 01/25/23 01/25/23 amoxicillin 875 mg-potassium 1 tab PO BID #14 tabs 02/05/23 clavulanate 125 mg tablet Previous Rx's Medication Instructions Recorded nebulizer accessories #1 ea 08/17/19 albuterol sulfate 90 mcg/actuation 2 puff inhalation Q4H PRN ##1 01/12/22 aerosol inhaler (ProAir HFA) montelukast 10 mg tablet 10 mg PO QHS #90 tabs 05/18/22 (Singulair) nebulizers #1 ea 06/07/22 ipratropium 0.5 mg-albuterol 3 mg 3 ml inhalation Q4H PRN wheezing 11/15/22 (2.5 mg base)/3 mL nebulization #180 mL soln ondansetron 4 mg disintegrating 4 mg PO Q6H PRN nausea and 11/22/22 tablet vomiting #30 tabs sumatriptan succinate 100 mg tablet See Rx Instructions PO .COMPLEX #9 11/22/22 tabs alprazolam 1 mg tablet 1 mg PO TID PRN anxiety #42 tabs 01/25/23 terbinafine HCl 250 mg tablet 250 mg PO DAILY 14 days #14 tabs 01/25/23 amoxicillin 875 mg-potassium 1 tab PO BID #14 tabs 02/05/23 clavulanate 125 mg tablet Allergies Allergy/AdvReac Type Severity Reaction Status Date / Time peanut Allergy Intermediate Swelling/Ed Verified 02/05/23 00:38 josy sertraline [From Zoloft] Allergy Unknown Unverified 02/05/23 00:38 citalopram AdvReac Intermediate insomnia Verified 02/05/23 00:38 ultrasound gel Allergy Intermediate Itching Uncoded 02/05/23 00:38 General Stated Complaint: DentalOral CONOR: 4 Review of Systems All systems reviewed & are unremarkable except as noted in HPI and below PFSH All Active Problems (Updated 02/05/23 @ 02:09 by Jose Armando Whiting DO) Headache, migraine (Chronic) Pain, dental (Acute) Left knee sprain (Acute) Disorder of left ear lobe (Acute) Tobacco dependence (Acute) Gender dysphoria (Acute) Trigger finger, right (Acute) Knee pain, bilateral (Acute) Anxiety (Chronic) Nonspecific paroxysmal spell (Acute) Migraine headache without aura (Acute) Syncope and collapse (Acute) Contact dermatitis due to adhesive bandage (Acute) Delayed menses (Acute) Acute bronchospasm (Acute) Asthma (Chronic) Bronchitis (Acute) Severe major depression with psychotic features (Acute) Pain, dental (Acute) Contraceptive management (Acute) Status post dilation and curettage (Acute) Asthma (Chronic) Syncopal episodes (Chronic) a. With heart murmur for which she had a normal cardiac evaluation. 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; anesthesia given to lower tooth Urinary tract infection requiring hospitalization Family History Mother Obstructive sleep apnea syndrome uses cpap hs Father Esophageal stricture Diabetes Sister Mental disorder Depression Brother Asthma Social History Smoking/Tobacco Use Status: Current-Occasional Tobacco Type: cigarettes Tobacco: How many years used: 1 Quit status: quit date established Smoking risk assessment performed?: Yes Alcohol Intake: former Drug use: Occasionally Substance use type: marijuana Details: few times a month; pt reports none on DOS 06/10/21 What type of physical activity do you participate in: walking Frequency: daily Seatbelt use: always Do you feel safe at home: Yes Do you feel safe in your relationship?: Yes Female Reproductive History Menstrual control method: progestin IUCD History History 2 Para 1 Hx # Term Pregnancies 1 Multiple births Hx # Pregnancies Ectopic pregnancies AB induced Hx Number of Living Children 1 AB spontaneous 1 Past Pregnancies Del. Date GA/Weeks # Preg Succ Route Wgt Sex Labor Lgth Anesthesia Location Prov Complic 03/03/16 39 No vaginal 2920.001 g Female Marjan 04/20/21 6 No KJ Exam Narrative Exam Narrative: 1.Const: Well-nourished, Well-developed, appearing stated age 2.Eyes: PERRL, no conjunctival injection, and symmetrical lids. 3.ENT: Atraumatic external nose and ears. Moist MM. Neck: Symmetric, trachea midline, No thyromegaly. Notably poor dentition in the molars. Multiple cavities. No evidence of periapical abscess patient demonstrates good movement of cervical neck. There is no nuchal rigidity, no nuchal tenderness. Patient is able to flex the neck without any difficulty or significant pain. Negative Kernig's and Brudzinski sign.. 4.CVS: +S1/S2, No murmurs or gallops. Peripheral pulses 2+ and equal in all extremities. Brisk capillary refill in all extremities. 5.RESP: Unlabored respiratory effort. Clear to auscultation bilaterally. No wheezes rales or rhonchi 6.GI: Soft, Nontender/Nondistended, No hepatosplenomegaly. No guarding or rebound. 7.MSK: Normocephalic/Atraumatic, Extremities w/o deformity or ttp No cyanosis or clubbing, Normal movement of all extremities 8.Skin: Warm, Dry. No rashes or lesions. 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 Sensation grossly intact, no focal neurologic deficits. 10.Psych: (AAO) x3. Appropriate mood and affect Course Vital Signs Vital signs: Vital Signs Temperature 36.6 C 02/05/23 00:24 Pulse 83 02/05/23 00:24 Respiratory Rate 18 02/05/23 00:24 Blood Pressure 134/114 H 02/05/23 00:24 Pulse Oximetry 99 02/05/23 00:24 Temperature 36.6 C 02/05/23 00:24 Temperature Source Tympanic 02/05/23 00:24 Pulse 83 02/05/23 00:24 Respiratory Rate 18 02/05/23 00:24 Respiratory Effort Normal, Non-Labored 02/05/23 00:57 Blood Pressure 134/114 H 02/05/23 00:24 Pulse Oximetry 99 02/05/23 00:24 Oxygen Delivery Method Room Air 02/05/23 00:24 Oxygen Flow Rate 0 02/05/23 00:24 Pain Level 7 02/05/23 00:32 PAWSS Have you Been Recently Intoxicated or Drunk Within the Last 30 days?: No Have you Ever Experienced Previous Episodes of Alcohol Withdrawal?: No Have you ever Experienced Withdrawal Seizures?: No Have you ever Experienced Delirium Tremens(DT)s?: No Have you ever undergone Alcohol Rehabilitation Treatment (i.e, inpt ot outpatient treatment programs)?: No Have you ever Experienced Blackouts?: No Have you ever Combined Alcohol with other Downers within the last 90 days?: No Have you ever Combined Alcohol with any other Substance of Abuse during the last 90 days?: No Positive Blood Alcohol level on Presentation? [PCS.BAL]: No Evidence of Increased Autonomic Activity (i.e. HR>120, tremor, sweating, agitation, nausea)?: No Result: 0
== END 2023-02-05 02:38 | disposition home or self-care (01) ==
PROVIDERS: Emergency Provider Student in an Organized Health Care Education/Training Program; PCP Family Medicine
DX: R51.9 Headache, unspecified (principal); G43.909 Migraine, unspecified, not intractable, without status migrainosus; K08.89 Other specified disorders of teeth and supporting structures
CPT/HCPCS: 96361; 96374; 96375; 99284; J0780; J1200; J1885; J2930

== ENCOUNTER 2023-03-03 10:35 | Emergency (ER) | payer MEDICAID, SELFPAY ==
[2023-03-03 10:46] VITALS: BP 102/71; PULSE 68; RESP 20; TEMP 36.7; O2SAT 99
--- NOTE | 2023-03-03 11:07 | ED.GENADUL_ITS ---
Discharge Plan Disposition Patient Disposition: Home Condition: Stable Discharge Details Chief Complaint: EarProblem Clinical Impression: Acute ear pain Primary Care Provider: Eric Singer ED Provider: Steven Hutchins Home Meds and New Rx's Prescriptions: No Action alprazolam 1 mg tablet 1 mg PO TID PRN (Reason: anxiety) Qty: 42 0RF (DME) nebulizer accessories Kit See Rx Instructions .ROUTE .MEDSUPPLY Qty: 1 0RF Rx Instructions: Please dispense tubing for nebulizer, and use as directed montelukast [Singulair] 10 mg tablet 10 mg PO QHS Qty: 90 1RF testosterone cypionate 200 mg/mL kit 200 mg IM QWEEK ipratropium-albuterol 0.5 mg-3 mg(2.5 mg base)/3 mL solution for nebulization 3 ml inhalation Q4H PRN (Reason: wheezing) Qty: 180 0RF Rx Instructions: Asthma exacerbation--start by taking 3x/d & q4h PRN SOB, wheeze, cough. rizatriptan [Maxalt-COMMUNICATIONS TECH] 10 mg tablet,disintegrating See Rx Instructions PO .COMPLEX Qty: 12 5RF Rx Instructions: take 1 tab at onset of headache; if no relief may repeat 1 tab after at least 2 hrs; max = 3 tabs/24 hr PO albuterol sulfate [ProAir HFA] 90 mcg/actuation HFA aerosol inhaler 2 puff Inhalation Q4H PRN Qty: 1 5RF (DME) nebulizers Misc See Rx Instructions .Route Qty: 1 0RF Rx Instructions: As directed, prn for asthma attacks ondansetron 4 mg tablet,disintegrating 4 mg PO Q6H PRN (Reason: nausea and vomiting) Qty: 30 0RF lithium carbonate 300 mg Tablet 300 mg PO QHS aripiprazole 15 mg tablet 15 mg PO DAILY Discharge Instructions Instructions: Earache (ED) Medical Decision Making 27-year-old female presents with right ear pain over the last several days, TMs clear bilaterally afebrile nontoxic, no nausea no vomiting no balance issues. Multiple dental caries/fractured teeth predominantly on right involving upper lower molar. No periapical abscess or deep space infection of head or neck. Consider likely referred dental pain versus sinus pressure low suspicion for bacterial otitis media. No evidence of deep space infection of head or neck. Trial of anti-inflammatory. Patient will follow-up with dentist for tooth repair. Home care instructions and return precautions given HPI General Date/Time Provider Initiated Documentation: 03/03/23 10:57 . HPI Narrative: 27-year-old female presents with right ear pain over the last several days, pain rating into the jaw. Does have multiple fractured and carious teeth for which she has obtained dental follow-up within the next couple of days. Denies nausea vomiting or balance issues. Denies fevers Related Data Home Medications Medication Instructions Recorded Confirmed nebulizer accessories #1 ea 08/17/19 02/25/23 lithium carbonate 300 mg tablet 300 mg PO QHS 08/17/21 02/25/23 albuterol sulfate 90 mcg/actuation 2 puff inhalation Q4H PRN ##1 01/12/22 02/25/23 aerosol inhaler (ProAir HFA) montelukast 10 mg tablet 10 mg PO QHS #90 tabs 05/18/22 02/25/23 (Singulair) nebulizers #1 ea 06/07/22 02/25/23 testosterone cypionate 200 mg/mL 200 mg IM QWEEK 10/02/22 02/25/23 intramuscular kit aripiprazole 15 mg tablet 15 mg PO DAILY 10/27/22 02/25/23 ipratropium 0.5 mg-albuterol 3 mg 3 ml inhalation Q4H PRN wheezing 11/15/22 02/25/23 (2.5 mg base)/3 mL nebulization #180 mL soln ondansetron 4 mg disintegrating 4 mg PO Q6H PRN nausea and 11/22/22 02/25/23 tablet vomiting #30 tabs alprazolam 1 mg tablet 1 mg PO TID PRN anxiety #42 tabs 01/25/23 02/25/23 rizatriptan 10 mg disintegrating See Rx Instructions PO .COMPLEX 02/25/23 02/25/23 tablet (Maxalt-COMMUNICATIONS TECH) #12 tabs Previous Rx's Medication Instructions Recorded nebulizer accessories #1 ea 08/17/19 albuterol sulfate 90 mcg/actuation 2 puff inhalation Q4H PRN ##1 01/12/22 aerosol inhaler (ProAir HFA) montelukast 10 mg tablet 10 mg PO QHS #90 tabs 05/18/22 (Singulair) nebulizers #1 ea 06/07/22 ipratropium 0.5 mg-albuterol 3 mg 3 ml inhalation Q4H PRN wheezing 11/15/22 (2.5 mg base)/3 mL nebulization #180 mL soln ondansetron 4 mg disintegrating 4 mg PO Q6H PRN nausea and 11/22/22 tablet vomiting #30 tabs alprazolam 1 mg tablet 1 mg PO TID PRN anxiety #42 tabs 01/25/23 rizatriptan 10 mg disintegrating See Rx Instructions PO .COMPLEX 02/25/23 tablet (Maxalt-COMMUNICATIONS TECH) #12 tabs Allergies Allergy/AdvReac Type Severity Reaction Status Date / Time peanut Allergy Intermediate Swelling/Ed Verified 03/03/23 10:49 josy sertraline [From Zoloft] Allergy Unknown Unverified 03/03/23 10:49 citalopram AdvReac Intermediate insomnia Verified 03/03/23 10:49 ultrasound gel Allergy Intermediate Itching Uncoded 03/03/23 10:49 General Stated Complaint: EarProblem CONOR: 4 Review of Systems Narrative: Review of Systems Constitutional: negative Eyes: negative ENT: Ear pain Cardiovascular: negative Respiratory: negative Gastrointestinal: negative : negative Musculoskeletal: negative Skin: negative Neurologic: negative Psych: negative PFSH All Active Problems (Updated 03/03/23 @ 11:13 by Steven Hutchins MD) Headache, migraine (Chronic) Pain, dental (Acute) Acute ear pain (Acute) Tobacco dependence (Acute) Gender dysphoria (Acute) Trigger finger, right (Acute) Knee pain, bilateral (Acute) Anxiety (Chronic) Nonspecific paroxysmal spell (Acute) Migraine headache without aura (Acute) Syncope and collapse (Acute) Contact dermatitis due to adhesive bandage (Acute) Delayed menses (Acute) Acute bronchospasm (Acute) Asthma (Chronic) Bronchitis (Acute) Severe major depression with psychotic features (Acute) Pain, dental (Acute) Contraceptive management (Acute) Status post dilation and curettage (Acute) Asthma (Chronic) Syncopal episodes (Chronic) a. With heart murmur for which she had a normal cardiac evaluation. 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; anesthesia given to lower tooth Urinary tract infection requiring hospitalization Family History Mother Obstructive sleep apnea syndrome uses cpap hs Father Esophageal stricture Diabetes Sister Mental disorder Depression Brother Asthma Social History Smoking/Tobacco Use Status: Current-Occasional Tobacco Type: cigarettes Tobacco: How many years used: 1 Quit status: quit date established Smoking risk assessment performed?: Yes Alcohol Intake: former Drug use: Occasionally Substance use type: marijuana Details: few times a month; pt reports none on DOS 06/10/21 What type of physical activity do you participate in: walking Frequency: daily Seatbelt use: always Do you feel safe at home: Yes Do you feel safe in your relationship?: Yes Female Reproductive History Menstrual control method: progestin IUCD History History 2 Para 1 Hx # Term Pregnancies 1 Multiple births Hx # Pregnancies Ectopic pregnancies AB induced Hx Number of Living Children 1 AB spontaneous 1 Past Pregnancies Del. Date GA/Weeks # Preg Succ Route Wgt Sex Labor Lgth Anesth esia Location Prov Complic 03/03/16 39 No vaginal 2920.001 g Female Kelvin it 04/20/21 6 No KJ Exam Narrative Exam Narrative: Physical Examination General: alert, awake, cooperative, resting comfortably, no acute distress HEENT: normocephalic, atraumatic; PERRL, EOM intact, conjunctiva normal; no nasal discharge; moist mucous membranes, oral and pharyngeal mucosa normal, tolerating secretions; TM clear right and left; multiple chronic appearing fractured teeth on right side including upper and lower molars. No evidence of periapical abscess or deep space infection of head or neck. Neck: supple, trachea midline; full ROM Course Vital Signs Vital signs: Vital Signs Temperature 36.7 C 03/03/23 10:46 Pulse 68 03/03/23 10:46 Respiratory Rate 20 03/03/23 10:46 Blood Pressure 102/71 03/03/23 10:46 Pulse Oximetry 99 03/03/23 10:46 Temperature 36.7 C 03/03/23 10:46 Pulse 68 03/03/23 10:46 Respiratory Rate 20 03/03/23 10:46 Blood Pressure 102/71 03/03/23 10:46 Blood Pressure Position Sitting 03/03/23 10:46 Pulse Oximetry 99 03/03/23 10:46 Oxygen Delivery Method Room Air 03/03/23 10:46 Oxygen Flow Rate 0 03/03/23 10:46
[2023-03-03] MEDS: Ketorolac 15 MG/ML VIAL IM (11:19)
== END 2023-03-03 11:21 | disposition home or self-care (01) ==
PROVIDERS: Emergency Provider Emergency Medicine; PCP Family Medicine
DX: H92.01 Otalgia, right ear (principal)
CPT/HCPCS: 96372; 99284; J1885

== ENCOUNTER 2023-03-11 02:55 | Outpatient (CLI) | payer MEDICAID, SELFPAY ==
[2023-03-11 12:06] LABS: ALT 35 U/L (14-59); AST 23 U/L (15-37); Alkaline Phosphatase 108 U/L (46-116); Bilirubin, Direct 0.1 mg/dL (0.0-0.2); Bilirubin, Total 0.8 mg/dL (0.2-1.0)
[2023-03-11 12:37] LABS: Lithium < 0.2 mmol/l (0.6-1.2)
== END 2023-03-11 02:56 | disposition home or self-care (01) ==
LOC: LBO 02:56
PROVIDERS: PCP Family Medicine; Visit Provider Family Medicine
DX: R74.8 Abnormal levels of other serum enzymes; Z79.899 Other long term (current) drug therapy
CPT/HCPCS: 36415; 80076; 80178

== ENCOUNTER 2023-03-19 19:05 | Emergency (ER) | payer MEDICAID, SELFPAY ==
[2023-03-19 19:10] VITALS: BP 101/65; PULSE 85; RESP 18; TEMP 37; O2SAT 96
--- NOTE | 2023-03-19 19:22 | W.ED.GENAD ---
Discharge Plan Discharge Details Chief Complaint: Headache Primary Care Provider: Eric Singer ED Provider: Moe Knutson Home Meds and New Rx's Prescriptions: No Action alprazolam 1 mg tablet 1 mg PO TID PRN (Reason: anxiety) Qty: 42 0RF (DME) nebulizer accessories Kit See Rx Instructions .ROUTE .MEDSUPPLY Qty: 1 0RF Rx Instructions: Please dispense tubing for nebulizer, and use as directed montelukast [Singulair] 10 mg tablet 10 mg PO QHS Qty: 90 1RF testosterone cypionate 200 mg/mL kit 200 mg IM QWEEK ipratropium-albuterol 0.5 mg-3 mg(2.5 mg base)/3 mL solution for nebulization 3 ml inhalation Q4H PRN (Reason: wheezing) Qty: 180 0RF Rx Instructions: Asthma exacerbation--start by taking 3x/d & q4h PRN SOB, wheeze, cough. rizatriptan [Maxalt-AUTOMOTIVE LOT ATTENDANT] 10 mg tablet,disintegrating See Rx Instructions PO .COMPLEX Qty: 12 5RF Rx Instructions: take 1 tab at onset of headache; if no relief may repeat 1 tab after at least 2 hrs; max = 3 tabs/24 hr PO albuterol sulfate [ProAir HFA] 90 mcg/actuation HFA aerosol inhaler 2 puff Inhalation Q4H PRN Qty: 1 5RF (DME) nebulizers Misc See Rx Instructions .Route Qty: 1 0RF Rx Instructions: As directed, prn for asthma attacks ondansetron 4 mg tablet,disintegrating 4 mg PO Q6H PRN (Reason: nausea and vomiting) Qty: 30 0RF lithium carbonate 300 mg Tablet 300 mg PO QHS aripiprazole 15 mg tablet 15 mg PO DAILY Medical Decision Making 27 yo who identifies as male comes in with cc of migraine. SHe has history of frequent migraines and states started to have slowly worsening frontal head pain similar to prior headaches along with nausea, no vomiting. Is not the worst of her life and has no fevers, chills, neck stiffness. She is caox4 speaking clearly in no distress. No focal deficits, perrl, CN II-XII intact, no meningismus. Given her history and it slowly has been worsening suspect migraine, no findings on history or exam to suggest etiologies such as page designer infection or intracranial hemorrhage. Will treat her symptoms and reassess. She also notes thoughts of self harm over the past few months, no specific plan and hasn't tried harming herself, will have mental health evaluate the pt once medically cleared. labs unremarkable other than ua with leuks and baceria, she denies any urinary symptoms so will hold on antibiotics at this time, she feels much better, headache resolved. MEdically cleared to speak with mental health. Differential Diagnosis Differential Diagnosis: migraine, depression Medical Records Medical records reviewed: Yes I reviewed the patient's medical records. Lab Data Lab results reviewed: Yes I reviewed the patient's lab results. HPI General Mode of arrival: ambulatory. Date/Time Provider Initiated Documentation: 03/19/23 19:11. Limitations to Documentation: no limitations. Information obtained by: patient. History of Present Illness 27 year old F presents to the emergency department with the chief complaint of migraine, described as moderate, Patient started experiencing this hour(s) (7) and it has been constant. No relieving factors improve symptom(s), No exacerbating factors reported . Patient notes no other symptoms.. Patient did receive the following treatments prior to arrival, none Related Data Home Medications Medication Instructions Recorded Confirmed nebulizer accessories #1 ea 08/17/19 02/25/23 lithium carbonate 300 mg tablet 300 mg PO QHS 08/17/21 02/25/23 albuterol sulfate 90 mcg/actuation 2 puff inhalation Q4H PRN ##1 01/12/22 02/25/23 aerosol inhaler (ProAir HFA) montelukast 10 mg tablet 10 mg PO QHS #90 tabs 05/18/22 02/25/23 (Singulair) nebulizers #1 ea 06/07/22 02/25/23 testosterone cypionate 200 mg/mL 200 mg IM QWEEK 10/02/22 02/25/23 intramuscular kit aripiprazole 15 mg tablet 15 mg PO DAILY 10/27/22 02/25/23 ipratropium 0.5 mg-albuterol 3 mg 3 ml inhalation Q4H PRN wheezing 11/15/22 02/25/23 (2.5 mg base)/3 mL nebulization #180 mL soln ondansetron 4 mg disintegrating 4 mg PO Q6H PRN nausea and 11/22/22 02/25/23 tablet vomiting #30 tabs alprazolam 1 mg tablet 1 mg PO TID PRN anxiety #42 tabs 01/25/23 02/25/23 rizatriptan 10 mg disintegrating See Rx Instructions PO .COMPLEX 02/25/23 02/25/23 tablet (Maxalt-AUTOMOTIVE LOT ATTENDANT) #12 tabs Previous Rx's Medication Instructions Recorded nebulizer accessories #1 ea 08/17/19 albuterol sulfate 90 mcg/actuation 2 puff inhalation Q4H PRN ##1 01/12/22 aerosol inhaler (ProAir HFA) montelukast 10 mg tablet 10 mg PO QHS #90 tabs 05/18/22 (Singulair) nebulizers #1 ea 06/07/22 ipratropium 0.5 mg-albuterol 3 mg 3 ml inhalation Q4H PRN wheezing 11/15/22 (2.5 mg base)/3 mL nebulization #180 mL soln ondansetron 4 mg disintegrating 4 mg PO Q6H PRN nausea and 11/22/22 tablet vomiting #30 tabs alprazolam 1 mg tablet 1 mg PO TID PRN anxiety #42 tabs 01/25/23 rizatriptan 10 mg disintegrating See Rx Instructions PO .COMPLEX 02/25/23 tablet (Maxalt-AUTOMOTIVE LOT ATTENDANT) #12 tabs Allergies Allergy/AdvReac Type Severity Reaction Status Date / Time peanut Allergy Intermediate Swelling/Ed Verified 03/03/23 10:49 josy sertraline [From Zoloft] Allergy Unknown Unverified 03/03/23 10:49 citalopram AdvReac Intermediate insomnia Verified 03/03/23 10:49 ultrasound gel Allergy Intermediate Itching Uncoded 03/03/23 10:49 General Stated Complaint: Headache CONOR: 3 Review of Systems All systems reviewed & are unremarkable except as noted in HPI and below Constitutional Constitutional: Denies chills and Denies fever(s) Eyes Eyes: Denies loss of vision Cardiovascular Cardiovascular: Denies chest pain and Denies dyspnea Respiratory Respiratory: Denies cough and Denies dyspnea Gastrointestinal Gastrointestinal: Denies abdominal pain and Denies vomiting Musculoskeletal Musculoskeletal: Denies joint swelling Integumentary/Breasts Skin/Breast: Denies rash Neurologic Neurologic: Denies loss of vision Psychiatric Psychiatric: Reports depression PFSH All Active Problems (Updated 03/08/23 @ 00:04 by YOANNA LEON) Acute ear pain (Acute) Tobacco dependence (Acute) Gender dysphoria (Acute) Trigger finger, right (Acute) Knee pain, bilateral (Acute) Anxiety (Chronic) Nonspecific paroxysmal spell (Acute) Migraine headache without aura (Acute) Syncope and collapse (Acute) Contact dermatitis due to adhesive bandage (Acute) Delayed menses (Acute) Acute bronchospasm (Acute) Asthma (Chronic) Bronchitis (Acute) Severe major depression with psychotic features (Acute) Pain, dental (Acute) Contraceptive management (Acute) Status post dilation and curettage (Acute) Asthma (Chronic) Syncopal episodes (Chronic) a. With heart murmur for which she had a normal cardiac evaluation. 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; anesthesia given to lower tooth Urinary tract infection requiring hospitalization Family History Mother Obstructive sleep apnea syndrome uses cpap hs Father Esophageal stricture Diabetes Sister Mental disorder Depression Brother Asthma Social History Smoking/Tobacco Use Status: Current-Occasional Tobacco Type: cigarettes Tobacco: How many years used: 1 Quit status: quit date established Smoking risk assessment performed?: Yes Alcohol Intake: former Drug use: Occasionally Substance use type: marijuana Details: few times a month; pt reports none on DOS 06/10/21 What type of physical activity do you participate in: walking Frequency: daily Seatbelt use: always Do you feel safe at home: Yes Do you feel safe in your relationship?: Yes Female Reproductive History Menstrual control method: progestin IUCD History History 2 Para 1 Hx # Term Pregnancies 1 Multiple births Hx # Pregnancies Ectopic pregnancies AB induced Hx Number of Living Children 1 AB spontaneous 1 Past Pregnancies Del. Date GA/Weeks # Preg Succ Route Wgt Sex Labor Lgth Anesthesia Location Prov Complic 03/03/16 39 No vaginal 2920.001 g Female Marjan 04/20/21 6 No KJ Exam Const General: no acute distress Orientation: alert HENMT Head: normal to inspection Ears: external ears normal General nose exam: external nose normal Mouth: moist mucous membranes Eyes General: appearance normal, both eyes and all related structures Neck Neck: normal visual inspection Resp Effort & Inspection: normal respiratory effort and able to speak in complete sentences Cardio Rate: regular rate Skin General skin exam: no rashes or lesions noted Neuro General: patient alert and patient oriented x3 Extrem General: normal to inspection Psych Appearance: well kempt Course Vital Signs Vital signs: Vital Signs Temperature 37.0 C 03/19/23 19:10 Pulse 85 03/19/23 19:10 Respiratory Rate 18 03/19/23 19:10 Blood Pressure 101/65 03/19/23 19:10 Pulse Oximetry 96 03/19/23 19:10 Temperature 37.0 C 03/19/23 19:10 Temperature Source Oral 03/19/23 19:10 Pulse 85 03/19/23 19:10 Respiratory Rate 18 03/19/23 19:10 Blood Pressure 101/65 03/19/23 19:10 Pulse Oximetry 96 03/19/23 19:10 Oxygen Delivery Method Room Air 03/19/23 19:10 Oxygen Flow Rate 0 03/19/23 19:10 Pain Level 7 03/19/23 19:10
[2023-03-19] MEDS: Normal Saline 1,000 ML 1000 ML IV (19:38)
[2023-03-19] MEDS: Prochlorperazine 10 MG/2 ML VIAL IVP (19:38)
[2023-03-19] MEDS: Ketorolac 15 MG/ML VIAL IVP (19:39)
[2023-03-19 19:40] LABS: Abs Immature Grans 0.02 10^3/uL (0.0-0.06); Absolute Basophil Count 0.09 10^3/uL (0.0-0.2); Absolute Eosinophil Count 0.36 10^3/uL (0.0-0.7); Absolute Lymphocyte Count 2.37 10^3/uL (1.2-3.4); Absolute Monocyte Count 0.47 10^3/uL (0.1-0.8); Basophils % 1.1; Eosinophils % 4.3; HCT 41.6 % (36.0-46.0); HGB 13.9 g/dL (11.2-15.7); Immature Grans % 0.2; Lymphocytes % 28.5; MCH 28.7 pg (27.0-33.0); MCHC 33.4 % (32.0-36.0); MCV 86 fL (80-95); MPV 10.7 fL (8.0-11.0); Monocytes % 5.7; Neutrophils % 60.2; Platelet Count 314 10^3/uL (130-400); RBC 4.84 10^6/uL (3.93-5.22); RDW 13.4 % (11.7-14.6); RDW-SD 42.3 fL; WBC 8.31 10^3/uL (4.4-10.8)
[2023-03-19 20:03] LABS: Salicylate < 2.8 mg/dL (<2.8)
[2023-03-19 20:09] LABS: Bilirubin Small (Negative); Blood Moderate (Negative); Clarity Clear (Clear); Glucose Negative (Negative); Ketones Trace mg/dL (Negative); Leukocyte Esterase Moderate (Negative); Nitrite Negative (Negative); Specific Gravity >= 1.030 (1.005-1.025); pH 5.5 (5-8)
[2023-03-19 20:09] LABS: ALT 24 U/L (14-59); AST 18 U/L (15-37); Albumin 3.9 g/dL (3.4-5.0); Alkaline Phosphatase 102 U/L (46-116); Anion Gap 8.4 mmol/L (3-11); BUN 12 mg/dL (7-18); Bilirubin, Total 0.6 mg/dL (0.2-1.0); CO2 29.6 mmol/L (21.0-32.0); CREATININE 0.9 mg/dL (0.55-1.02); Calcium 9.2 mg/dL (8.5-10.1); Chloride 105 mmol/L (98-107); ETHANOL BLOOD < 3.0 mg/dL (<10); Estimated GFR 89.86 (mL/min/1.73m2); Glucose 90 mg/dL (74-106); Magnesium 2.1 mg/dL (1.8-2.4); Potassium 3.4 mmol/L (3.5-5.1); Sodium 143 mmol/L (136-145); TSH (W/Ref FT4) 1.51 uIU/mL (0.36-3.74); Total Protein 7.3 g/dL (6.4-8.2)
[2023-03-19 20:11] LABS: Acetaminophen < 2 ug/mL (10-30)
[2023-03-19 20:12] LABS: *AMPHETAMINES SCREEN URINE Negative (Negative); *BARBITURATES SCREEN URINE Negative (Negative); *BENZODIAZEPINES SCREEN URINE Negative (Negative); Cannabinoids THC Positive (Negative); Cocaine Screen,Urine Negative (Negative); METHADONE URINE SCREEN Negative (Negative); OPIATES URINE SCREEN Negative (Negative)
[2023-03-19 20:18] LABS: Bacteria Few HPF (Negative); C & S Indicated? Yes; Casts Negative LPF (Negative); Crystals Negative HPF (Negative); Epithelial Cells Few HPF (Negative); Mucus Trace (Negative); RBC 0-2 HPF (0-2)
[2023-03-19 20:25] LABS: Tricyclic Antidepressants Negative (Negative)
--- NOTE | 2023-03-19 22:34 | PDOC.MHCN ---
Date of service: 03/19/23 Time of Service: 20:46 PHQ-9 Over the last 2 weeks, how often have you been bothered by any of the following problems? 1. Little interest or pleasure in doing things: nearly every day 2. Feeling down, depressed, or hopeless: nearly every day 3. Trouble falling or staying asleep, or sleeping too much: more than half the days 4. Feeling tired or having little energy: more than half the days 5. Poor appetite or overeating: several days 6. Feeling bad about yourself - or that you are a failure or have let yourself and your family down: nearly every day 7. Trouble concentrating on things, such as reading the newspaper or watching television: not at all 8. Moving or speaking so slowly that other people could have noticed? - Or the opposite - being so fidgety or restless that you have been moving around a lot more than usual: several days 9. Thoughts that you would be better off or of hurting yourself in some way: several days Total score: 16 If you checked off any problems, how difficult have these problems made it for you to do your work, take care of things at home, or get along with other people?: very difficult Source: Developed by Drs. Sea Kemp, Vanita Swenson, Everette Arias and colleagues, with an educational zoya from [employer]. Suicide Severity Rate CSSRS Have you wished you were or wished you could go to sleep and not wake up?: Yes Have you actually had any thoughts of killing yourself?: Yes CSSRS2 Have you been thinking about how you might do this?: Yes Have you had these thoughts and had some intention of acting on them?: Yes Have you started to work out or worked out the details of how to kill yourself? Do you intend to carry out this plan?: Yes CSSRS3 Have you ever done anything, started to do anything or prepared to do anything to end your life?: Yes CSSRS4 Was this within the past three months?: Yes Screening Score Total Score: 8 Screening: Positive Mental Health Emergency Note Release [facility] release signed:: Yes Reason for Visit In the last 2 weeks has the pt presented for ES prior to today?: No Client Information Client is: Adult Outpatient Well Housed: Yes Non Suicidal Self Injury Current: No History: yes, Cutting with a razor Safety Risk/Harm to Self or Others Current Ideation to Harm Self or Others: Yes to self. Intent: yes, has intent. Plan: yes,has a plan. History of suicide attempt: yes,history of suicide attempt reported. Details of previous suicide attempt: Did not disclose to this conventional underwriter Risk: Does risk to harm exist?: yes. Risk: Moderate Risk Duty to warn indicated: No Asssessment/Mental Status Appearance: Disheveled Attitude: Cooperative Behavior: Unremarkable Speech: Soft and Slow Affect: Normal and Flat Mood: Depressed Thought process: Unremarkable Hallucinations: No evidence Delusions: No evidence Attention: Unremarkable Perception: Not impaired Orientation: Fully orientated Memory: Intact Insight: Good Judgement: Good Neurovegetative Symptoms Sleep: No change (Disrupted sleep, client either sleeps all day or does not sleep at all) Appetitie: Disordered (Client eats one to two meals a day) Interests: Decrease Energy: Decrease Libido: Not applicable Substance Use: Other Drug Issues: Other Do you use nicotine?: Yes Have you used substances in the last 7 days?: yes, Marijuana Additional Issues: Assaultive/Threatening Behavior: No Medical Concerns: No Client engaged in active self harm w/weapon: No Threatening to run away: No Child reported abuse/neglect: No Voluntarily presenting for services: Yes Domestic violence is a concern: No Extreme Psychosis or extreme behavior is present: No Impression Client is Tanvi Scruggs Transgender male who?s preferred name is Gonzalo and goes be he/him pronouns. Client presented into [facility] with complaints of a migraine but after further conversation with the attending doctor client disclosed thoughts of SI and mental health was called to evaluate the client. Client did report bots of SI no thoughts of HI at this time client did have intent and a current ideation to cause harm to himself and did disclose a plan on how he would end his life. Client also reported that around two months ago he did make an attempt to by suicide but the attempt was not successful. Client appeared disheveled to this conventional underwriter and at the time was still experiencing some migraine symptoms so client was speaking slowly and softly in some speech appeared to be slightly slurred but was understandable. Client reported disrupted sleep and eating patterns in addition to a decrease in energy and interests. At this time client is interested in inpatient facility treatment to help address his ongoing depression. Client will remain at the hospital until placement is found and will be needing reassessments daily. Plan/Disposition Recommended Disposition: Hospitalization No. Reports/communication Outcome discussed with: ED/Personnel
[2023-03-19 22:40] LABS: Lithium < 0.2 mmol/l (0.6-1.2)
[2023-03-20] MEDS: Lithium Carbonate 300 MG CAP PO (06:19)
[2023-03-20 06:20] VITALS: BP 112/70; PULSE 67; RESP 16; TEMP 36.6; O2SAT 96
[2023-03-20] MEDS: ALPRAZolam 0.5 MG TAB 1 MG PO (08:58)
[2023-03-20] MEDS: ARIPiprazole 15 MG TAB PO (08:58)
[2023-03-20] MEDS: Ondansetron 4 MG/2 ML VIAL IVP (09:05)
[2023-03-20] MEDS: Normal Saline Flush 10 ML SYR IVP (09:05)
--- NOTE | 2023-03-20 10:12 | ED.PROG_ITS ---
Date of service: 03/20/23 Time of Service: 10:13 Medical Decision Making Received call from Lindsey at [facility] for doc to doc, discussed all pertinent aspects of case and reviewed labs, will accept for transfer. RN to call for nurse to nurse report. Sign Out Sign Out Data: Sign Out Comment: voluntary for SI, treated for migraine at initial presentation with improvement Last updated by Moe Knutson MD at 03/19/23 22:20 Sign Out Comment: Patient is being placement for voluntary. Patient resting quietly. Last updated by Julian Cantu MD at 03/20/23 07:03 Discharge Plan Discharge Details Chief Complaint: Headache Clinical Impression: Migraine headache with aura, Suicidal ideation, Depression Primary Care Provider: Eric Singer ED Provider: Julian Cantu Home Meds and New Rx's Prescriptions: No Action alprazolam 1 mg tablet 1 mg PO TID PRN (Reason: anxiety) Qty: 42 0RF (DME) nebulizer accessories Kit See Rx Instructions .ROUTE .MEDSUPPLY Qty: 1 0RF Rx Instructions: Please dispense tubing for nebulizer, and use as directed montelukast [Singulair] 10 mg tablet 10 mg PO QHS Qty: 90 1RF testosterone cypionate 200 mg/mL kit 200 mg IM QWEEK ipratropium-albuterol 0.5 mg-3 mg(2.5 mg base)/3 mL solution for nebulization 3 ml inhalation Q4H PRN (Reason: wheezing) Qty: 180 0RF Rx Instructions: Asthma exacerbation--start by taking 3x/d & q4h PRN SOB, wheeze, cough. rizatriptan [Maxalt-MANAGER TRADE] 10 mg tablet,disintegrating See Rx Instructions PO .COMPLEX Qty: 12 5RF Rx Instructions: take 1 tab at onset of headache; if no relief may repeat 1 tab after at least 2 hrs; max = 3 tabs/24 hr PO albuterol sulfate [ProAir HFA] 90 mcg/actuation HFA aerosol inhaler 2 puff Inhalation Q4H PRN Qty: 1 5RF (DME) nebulizers Misc See Rx Instructions .Route Qty: 1 0RF Rx Instructions: As directed, prn for asthma attacks ondansetron 4 mg tablet,disintegrating 4 mg PO Q6H PRN (Reason: nausea and vomiting) Qty: 30 0RF lithium carbonate 300 mg Tablet 300 mg PO QHS aripiprazole 15 mg tablet 15 mg PO DAILY
== END 2023-03-20 11:23 ==
PROVIDERS: Emergency Medicine; Emergency Provider Emergency Medicine Emergency Medical Services; PCP Family Medicine
DX: G43.109 Migraine with aura, not intractable, without status migrainosus (principal); R45.851 Suicidal ideations
CPT/HCPCS: 36415; 80053; 80307; 81025; 96361; 96374; 96375; 99285; 80178; 80320; 80329; 81003; 81015; 83735; 84443; 85025; 87086; J0780; J1885; J2405

== ENCOUNTER 2023-05-04 21:54 | Emergency (ER) | payer MEDICAID, SELFPAY ==
[2023-05-04 21:54] VITALS: BP 107/72; PULSE 75; RESP 16; TEMP 36.2; O2SAT 99
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
[2023-05-04 22:35] LABS: Abs Immature Grans 0.02 10^3/uL (0.0-0.06); Absolute Basophil Count 0.07 10^3/uL (0.0-0.2); Absolute Eosinophil Count 0.36 10^3/uL (0.0-0.7); Absolute Lymphocyte Count 2.99 10^3/uL (1.2-3.4); Absolute Monocyte Count 0.58 10^3/uL (0.1-0.8); Absolute Neutrophil Count 4.42 10^3/uL (1.2-6.7); Basophils % 0.8; Eosinophils % 4.3; HCT 42.8 % (36.0-46.0); HGB 14.1 g/dL (11.2-15.7); Immature Grans % 0.2; Lymphocytes % 35.4; MCHC 32.9 % (32.0-36.0); MCV 88 fL (80-95); MPV 10.9 fL (8.0-11.0); Monocytes % 6.9; Neutrophils % 52.4; Platelet Count 313 10^3/uL (130-400); RBC 4.87 10^6/uL (3.93-5.22); RDW 13.1 % (11.7-14.6); RDW-SD 42.4 fL; WBC 8.44 10^3/uL (4.4-10.8)
[2023-05-04 22:37] LABS: Bilirubin Negative (Negative); Blood Negative (Negative); Clarity Clear (Clear); Glucose Negative (Negative); Ketones Trace mg/dL (Negative); Leukocyte Esterase Negative (Negative); Nitrite Negative (Negative); Specific Gravity >= 1.030 (1.005-1.025); Urobilinogen 0.2 mg/dL (Up to 0.2)
--- NOTE | 2023-05-04 22:49 | DI.RAD_ITS ---
Exam(s) XR PORTABLE CHEST AP EXAM: XR PORTABLE CHEST AP CLINICAL HISTORY: cough TECHNIQUE: 2D digital imaging was performed of the chest. One image was obtained. An AP view was ob tained. COMPARISON: No exams were available for comparison FINDINGS: MEDIASTINUM: Normal. HEART: Normal. PULMONARY VASCULATURE: Normal. LUNGS: Clear. PLEURAL SPACE: No pleural effusion or pneumothorax. BONE:Within normal limits for the patient's age. OTHER FINDINGS:Normal. IMPRESSION: No acute pulmonary findings. DATA REPOSITORY: RADIATION DOSE DELIVERED:
[2023-05-04 22:53] LABS: *AMPHETAMINES SCREEN URINE Negative (Negative); *BARBITURATES SCREEN URINE Negative (Negative); *BENZODIAZEPINES SCREEN URINE Positive (Negative); Cannabinoids THC Negative (Negative); Cocaine Screen,Urine Negative (Negative); METHADONE URINE SCREEN Negative (Negative); OPIATES URINE SCREEN Negative (Negative)
[2023-05-04 22:56] LABS: Tricyclic Antidepressants Negative (Negative)
[2023-05-04 22:58] LABS: Acetaminophen < 2 ug/mL (10-30); Salicylate < 2.8 mg/dL (<2.8)
[2023-05-04 23:02] LABS: ALT 19 U/L (14-59); AST 19 U/L (15-37); Albumin 4.3 g/dL (3.4-5.0); Alkaline Phosphatase 108 U/L (46-116); Anion Gap 11.2 mmol/L (3-11); BUN 13 mg/dL (7-18); Bilirubin, Total 0.5 mg/dL (0.2-1.0); CO2 25.8 mmol/L (21.0-32.0); CREATININE 0.9 mg/dL (0.55-1.02); Calcium 9.5 mg/dL (8.5-10.1); Chloride 104 mmol/L (98-107); ETHANOL BLOOD < 3.0 mg/dL (<10); Estimated GFR 89.86 (mL/min/1.73m2); Glucose 101 mg/dL (74-106); Potassium 3.6 mmol/L (3.5-5.1); Sodium 141 mmol/L (136-145); TSH (W/Ref FT4) 1.27 uIU/mL (0.36-3.74)
--- NOTE | 2023-05-04 23:05 | DI.VRAD_ITS ---
PROCEDURE INFORMATION: Exam: XR Chest Exam date and time: 05/04/2023 10:39 PM Age: 27 years old Clinical indication: Cough TECHNIQUE: Imaging protocol: Radiologic exam of the chest. Views: 1 view. COMPARISON: CR XR PORTABLE CHEST AP 11/13/2022 11:35 AM FINDINGS: Lungs: No rosmery airspace consolidation on portable imaging. Pleural spaces: No pleural effusion. No pneumothorax. Heart/Mediastinum: Cardiac silhouette upper limits of normal, mild central vascular prominence , both similar to prior. Bones/joints: No acute fracture. IMPRESSION: Cardiac silhouette upper limits of normal, mild central vascular prominence , both similar to prior. Dictated and Authenticated by: Kizzy Mackenzie MD. Ordering:WARD Suárez MD
--- NOTE | 2023-05-05 00:21 | NUR.NOTE ---
Nursing Note: AIR FORCE PILOTShannan HaynesJohanna spoke to the pt, the pt told her that she had access to 40 pills of xanax, pt is requesting to stay for treatment. Per MD Whiting no sitter needed
--- NOTE | 2023-05-05 06:19 | NUR.NOTE ---
Nursing Note: Late entry Pt was calm during the night, slept well NAD
--- NOTE | 2023-05-05 08:05 | W.EDPROG ---
Date of service: 05/05/23 Time of Service: 08:06 Medical Decision Making This patient was signed out to me. Please see previous notes for H&P and initial eval. In brief, 27yo FTM presenting with suicidal ideation, plan to overdose on home medications. Able to contract for safety here and does not have access to home medications; not on safety sit at this time. Medically cleared, awaiting voluntary placement. Home medications ordered. No acute events my shift. Continues to await placement. Signout to oncoming physician, plan remains voluntary inpatietn psych placement. Sign Out Sign Out Data: Sign Out Comment: Patient here for depression and suicidality. States that she would go home and take pills to overdose. Denies any intent to self-harm while at the emergency department specifically. Pending voluntary placement. Last updated by Jose Armando Whiting DO at 05/05/23 07:34 Discharge Plan Discharge Details Chief Complaint: PsychEval Clinical Impression: Depression Primary Care Provider: Eric Singer ED Provider: Bernie Lira Home Meds and New Rx's Prescriptions: No Action triamcinolone acetonide 0.5 % cream 1 applic topical BID PRN (Reason: rash) Qty: 15 3RF alprazolam 1 mg tablet 1 mg PO TID PRN (Reason: anxiety) Qty: 42 0RF (DME) nebulizer accessories Kit See Rx Instructions .ROUTE .MEDSUPPLY Qty: 1 0RF Rx Instructions: Please dispense tubing for nebulizer, and use as directed testosterone cypionate 200 mg/mL kit 200 mg IM QWEEK ipratropium-albuterol 0.5 mg-3 mg(2.5 mg base)/3 mL solution for nebulization 3 ml inhalation Q4H PRN (Reason: wheezing) Qty: 180 0RF Rx Instructions: Asthma exacerbation--start by taking 3x/d & q4h PRN SOB, wheeze, cough. rizatriptan [Maxalt-HEARING CONSULTANT] 10 mg tablet,disintegrating See Rx Instructions PO .COMPLEX Qty: 12 5RF Rx Instructions: take 1 tab at onset of headache; if no relief may repeat 1 tab after at least 2 hrs; max = 3 tabs/24 hr PO albuterol sulfate [ProAir HFA] 90 mcg/actuation HFA aerosol inhaler 2 puff Inhalation Q4H PRN Qty: 1 5RF (DME) nebulizers Misc See Rx Instructions .Route Qty: 1 0RF Rx Instructions: As directed, prn for asthma attacks ondansetron 4 mg tablet,disintegrating 4 mg PO Q6H PRN (Reason: nausea and vomiting) Qty: 30 0RF Abilify Maintena 400 mg suspension,extended rel recon 400 mg IM QMONTH lithium carbonate 300 mg capsule 300 mg PO BID Patient Comments: patient states no longer taking prazosin 2 mg capsule 4 mg PO QHS venlafaxine [Effexor XR] 75 mg capsule,extended release 24hr 75 mg PO DAILY buspirone 5 mg tablet 5 mg PO BID lamotrigine 25 mg tablet 25 mg PO DAILY
[2023-05-05] MEDS: busPIRone 5 MG TAB PO ×2 (09:44→21:07)
[2023-05-05] MEDS: Venlafaxine 75 MG CAPCR PO (09:45)
[2023-05-05] MEDS: lamoTRIgine 25 MG TAB PO (10:20)
--- NOTE | 2023-05-05 12:57 | CMSP_ITS ---
Date of service: 05/05/23 Time of Service: 12:57 Care Management Safety Plan Status Status: Voluntary Reason for Wait Reason for Wait: Inpatient Admission Safety Plan Safety Plan: Tanvi, who prefers to be called Gonzalo and who identifies as a male, presented to the ED with suicidal ideation. He has a history of depression/SI and adjustment disorder as well as several medical diagnoses such as eczema, mitral valve prolapse and migraines. He has had numerous ED visits for anxiety and or depression and has been hospitalized at [facility] and spent time at the [facility] bed in the past. VOLUNTARY FOR INPATIENT PSYCHIATRIC STABILIZATION.? Patient is appropriate in all interactions since arriving at [facility]; Pt has demonstrated appropriate coping and communication skills, has articulated his or her needs and concerns and is fully engaged during staff interactions. Safety plan has been established with patient, and care team, to adhere to patient goals, identify restrictions based on behavioral status, address nutrition, and determine allowed personal belongings, tools for hygiene and personal care. Determine level of activity including ambulation, level of supervision, visitors, and determine privileges based on behaviors and level of engagement by pt. SAFETY PLAN: 1. Will remain on suicide precautions. In Paper Clothes 2. Will remain in room under direct supervision of one-on-one staff at all times provided by [employer]; UBALDO, CUSTOMER SALES DISTRIBUTOR alteration worker. 3. May have paper cups, plates, finger foods as well as a cardboard spoon with which to eat meals. 4. Follow [facility] Management of the Admitted Behavioral Health Patient policy. 5. Comfort bath system only, shower permitted with escort at RN discretion. 6. No personal belongings-soft items permitted at RN discretion. 7. Visitors-none at this time. 8. Activities: soft cart items approved per RN discretion. 9.? Bathroom privileges with escort in the ED, available in room without limitation on M/S. 10. Phone: contact limited to family at this time, via cordless phone at RN discretion. 11. Due to VOLUNTARY status, if patient wishes to leave [facility], staff will contact [facility] Crisis Screener ([phone]) and On-Call Underwriting Clerk ([phone]) as soon as possible. In the event of elopement, notify [facility] Police ([phone]). Patient is currently voluntarily at [facility] and seeking inpatient admission when a bed becomes available. [facility] Frontline Big Data Platform Architect will continue seeking placement. Please contact the Ip Counsel Underwriting Clerk ([phone]) and [facility] Big Data Platform Architect ([phone]) for any needed changes in the Safety Plan. Safety plan has been provided to interdepartmental care team.
[2023-05-05] MEDS: Nicotine 4 MG GUM CH (13:11)
--- NOTE | 2023-05-05 13:53 | PDOC.MHCN ---
Date of service: 05/05/23 Time of Service: 10:15 PHQ-9 Over the last 2 weeks, how often have you been bothered by any of the following problems? 1. Little interest or pleasure in doing things: several days 2. Feeling down, depressed, or hopeless: nearly every day 3. Trouble falling or staying asleep, or sleeping too much: several days 4. Feeling tired or having little energy: several days 5. Poor appetite or overeating: several days 6. Feeling bad about yourself - or that you are a failure or have let yourself and your family down: more than half the days 7. Trouble concentrating on things, such as reading the newspaper or watching television: several days 8. Moving or speaking so slowly that other people could have noticed? - Or the opposite - being so fidgety or restless that you have been moving around a lot more than usual: not at all 9. Thoughts that you would be better off or of hurting yourself in some way: nearly every day Total score: 13 Source: Developed by Drs. Sea Kemp, Vanita Swenson, Everette Arias and colleagues, with an educational zoya from [employer]. Suicide Severity Rate CSSRS Have you wished you were or wished you could go to sleep and not wake up?: Yes Have you actually had any thoughts of killing yourself?: Yes CSSRS2 Have you been thinking about how you might do this?: Yes Have you had these thoughts and had some intention of acting on them?: Yes Have you started to work out or worked out the details of how to kill yourself? Do you intend to carry out this plan?: No CSSRS3 Have you ever done anything, started to do anything or prepared to do anything to end your life?: No CSSRS4 Was this within the past three months?: No Screening Score Total Score: 4 Screening: Positive Mental Health Emergency Note Release [facility] release signed:: Yes Reason for Visit This was a reassessment due to being hospitalized last evening due to suicidal ideation and a plan In the last 2 weeks has the pt presented for ES prior to today?: No Client Information Client is: HOSPITAL COORDINATOR Well Housed: Yes Safety Risk/Harm to Self or Others Current Ideation to Harm Self or Others: No Risk: Does risk to harm exist?: yes. Risk: Moderate Risk Duty to warn indicated: No Asssessment/Mental Status Appearance: Other Attitude: Cooperative and Friendly Behavior: Unremarkable Speech: Soft and Slow Affect: Constricted Mood: Sad, Stressed and Depressed Thought process: Circumstational Hallucinations: No Delusions: No Attention: Unremarkable Perception: Not impaired Orientation: Fully orientated Memory: Intact Insight: Poor Judgement: Poor Neurovegetative Symptoms Sleep: Decrease Appetitie: Decrease Interests: No change Energy: Decrease Libido: Not applicable Substance Use: Other Drug Issues: Other Do you use nicotine?: No Have you used substances in the last 7 days?: No Additional Issues: Assaultive/Threatening Behavior: No Medical Concerns: No Client engaged in active self harm w/weapon: No Threatening to run away: No Child reported abuse/neglect: No Voluntarily presenting for services: Yes Domestic violence is a concern: No Extreme Psychosis or extreme behavior is present: No Impression This client has been suffering from suicidal ideation. She has had a plan to act on committing suicide. She states, I know the medication cxhanges they made when i was at [facility] has made things much worse for my mind. She is a bright and personable indiviual who is looking for help with her mental illness. She will be best served by going to inpatient psychiatric care. [place] [facility] [place] and given:: [id number] Plan/Disposition Recommended Disposition: [facility] Services [facility] Services: HOSPITAL COORDINATOR, Therapy, Psychiatric Evaluation and Other, HOSPITAL COORDINATOR, Therapy, Psych Screening and Community resources. Plan: This client will stay at [facility] until a bed is made available to help treat her mental illness . Referrals have all been sent out last evening. Person reported agreement to plan: Yes Facilities contacted if Applicable [facility] Not accepted, No bed available Reports/communication Outcome discussed with: ED/Personnel
[2023-05-05] MEDS: Nicotine 21 MG/24 HR PATCH TD (16:18)
[2023-05-05] MEDS: Prazosin 2 MG CAP 4 MG PO (21:28)
[2023-05-06 09:38] VITALS: BP 105/70; PULSE 92; RESP 16; TEMP 36.5; O2SAT 97
[2023-05-06] MEDS: Venlafaxine 75 MG CAPCR PO (09:38)
[2023-05-06] MEDS: busPIRone 5 MG TAB PO (09:38)
[2023-05-06] MEDS: Nicotine 21 MG/24 HR PATCH TD (09:38)
[2023-05-06] MEDS: lamoTRIgine 25 MG TAB PO (09:38)
--- NOTE | 2023-05-06 10:42 | CMSP_ITS ---
Date of service: 05/06/23 Time of Service: 10:43 Care Management Safety Plan Status Status: Voluntary Reason for Wait Reason for Wait: Inpatient Admission Safety Plan Safety Plan: Tanvi, who prefers to be called Gonzalo and who identifies as a male, presented to the ED with suicidal ideation. He has a history of depression/SI and adjustment disorder as well as several medical diagnoses such as eczema, mitral valve prolapse and migraines. He has had numerous ED visits for anxiety and or depression and has been hospitalized at [facility] and spent time at the [facility] bed in the past. VOLUNTARY FOR INPATIENT PSYCHIATRIC STABILIZATION.? Patient is appropriate in all interactions since arriving at [facility]; Pt has demonstrated appropriate coping and communication skills, has articulated his or her needs and concerns and is fully engaged during staff interactions. Safety plan has been established with patient, and care team, to adhere to patient goals, identify restrictions based on behavioral status, address nutrition, and determine allowed personal belongings, tools for hygiene and personal care. Determine level of activity including ambulation, level of supervision, visitors, and determine privileges based on behaviors and level of engagement by pt. SAFETY PLAN: 1. Will remain on suicide precautions. In Paper Clothes 2. Will remain in room under direct supervision of one-on-one staff at all times provided by [employer]O; UBALDO, HEEL SCORER director of cloud services. 3. May have paper cups, plates, finger foods as well as a cardboard spoon with which to eat meals. 4. Follow [facility] Management of the Admitted Behavioral Health Patient policy. 5. Comfort bath system only, shower permitted with escort at RN discretion. 6. No personal belongings-soft items permitted at RN discretion. 7. Visitors-none at this time. 8. Activities: soft cart items approved per RN discretion. 9.? Bathroom privileges with escort in the ED, available in room without limitation on M/S. 10. Phone: contact limited to family at this time, via cordless phone at RN discretion. 11. Due to VOLUNTARY status, if patient wishes to leave [facility], staff will contact [facility] Crisis Screener ([phone]) and On-Call Human Resources Generalist ([phone]) as soon as possible. In the event of elopement, notify [facility] Police ([phone]). Patient is currently voluntarily at [facility] and seeking inpatient admission when a bed becomes available. [facility] Frontline Clerk Of Court will continue seeking placement. Please contact the Chief Writer Human Resources Generalist ([phone]) and [facility] Clerk Of Court ([phone]) for any needed changes in the Safety Plan. Safety plan has been provided to interdepartmental care team.
--- NOTE | 2023-05-06 11:50 | W.EDPROG ---
Date of service: 05/06/23 Time of Service: 11:51 Medical Decision Making Care was signed out by Dr. Whiting, please see his documentation regarding ED course prior to signout. Patient was seen by crisis CURRICULUM AND ASSESSMENT COORDINATOR today and safety plan was developed with the patient. They recommend discharge home with safety plan and will be following up with the patient. Patient is in agreement. Disposition decision was made weighing the risks and benefits of hospitalization versus outpatient treatment, the risk for further decompensation, and the patient's wishes. The patient was stable and requested discharge. Prior to discharge, my usual and customary return precautions were reviewed with the patient - this included follow-up instructions and reason to return to the emergency department if condition worsens, does not improve as expected, or other new concerns arise. [place] was removed from medication list. Patient notes he has not been taking over the past 1 month after instructed to stop by his mental health team. Sign Out Sign Out Data: Sign Out Comment: Patient here for depression and suicidality. States that she would go home and take pills to overdose. Denies any intent to self-harm while at the emergency department specifically. Pending voluntary placement. Last updated by Jose Armando Whiting DO at 05/05/23 07:34 Sign Out Comment: 27yo FTM presenting with suicidal ideation, plan to overdose on home medications, contracts for safety here. Not on sit. Medically cleared, home meds in, awaiting placement. Last updated by Bernie Lira MD at 05/05/23 20:03 Sign Out Comment: Patient stable throughout the night. Medically clear. Awaiting placement. Last updated by Jose Armando Whiting DO at 05/06/23 07:32 Discharge Plan Disposition Patient Disposition: Home Condition: Stable Discharge Details Clinical Impression: Depression Primary Care Provider: Eric Singer ED Provider: Carlos Domingo Home Meds and New Rx's Prescriptions: Continued triamcinolone acetonide 0.5 % cream 1 applic topical BID PRN (Reason: rash) Qty: 15 3RF alprazolam 1 mg tablet 1 mg PO TID PRN (Reason: anxiety) Qty: 42 0RF (DME) nebulizer accessories Kit See Rx Instructions .ROUTE .MEDSUPPLY Qty: 1 0RF Rx Instructions: Please dispense tubing for nebulizer, and use as directed testosterone cypionate 200 mg/mL kit 200 mg IM QWEEK ipratropium-albuterol 0.5 mg-3 mg(2.5 mg base)/3 mL solution for nebulization 3 ml inhalation Q4H PRN (Reason: wheezing) Qty: 180 0RF Rx Instructions: Asthma exacerbation--start by taking 3x/d & q4h PRN SOB, wheeze, cough. rizatriptan [Maxalt-SHIP LOADER] 10 mg tablet,disintegrating See Rx Instructions PO .COMPLEX Qty: 12 5RF Rx Instructions: take 1 tab at onset of headache; if no relief may repeat 1 tab after at least 2 hrs; max = 3 tabs/24 hr PO albuterol sulfate [ProAir HFA] 90 mcg/actuation HFA aerosol inhaler 2 puff Inhalation Q4H PRN Qty: 1 5RF (DME) nebulizers Misc See Rx Instructions .Route Qty: 1 0RF Rx Instructions: As directed, prn for asthma attacks ondansetron 4 mg tablet,disintegrating 4 mg PO Q6H PRN (Reason: nausea and vomiting) Qty: 30 0RF Abilify Maintena 400 mg suspension,extended rel recon 400 mg IM QMONTH prazosin 2 mg capsule 4 mg PO QHS venlafaxine [Effexor XR] 75 mg capsule,extended release 24hr 75 mg PO DAILY buspirone 5 mg tablet 5 mg PO BID lamotrigine 25 mg tablet 25 mg PO DAILY Discontinued lithium carbonate 300 mg capsule 300 mg PO BID Patient Comments: patient states no longer taking Discharge Instructions Instructions: Depression (ED) Additional Instructions: Please follow safety plan as outlined with crisis team. Please follow-up with your mental health health care coach. Please contact your primary care physician to arrange follow-up. Return to the ER immediately for any worsening or new concerning symptoms. Referrals: [facility] [Outside] Eric Singer DO [Primary Care Provider] -
--- NOTE | 2023-05-06 16:12 | PDOC.CMDIS ---
Date of service: 05/06/23 Time of Service: 16:00 LACE Index Scoring Tool Questions: Length of Stay (in days): 1 E.D. Visits: 9 Care Management Discharge Plan Reason for Hospitalization: SI, Overdose, depression Discharge Plan: [employer] PANELBOARD OPERATOR met with Gonzalo and a Safety Plan was established. Gonzalo transported home via [employer] PANELBOARD OPERATOR. Gonzalo will follow up with community providers and his discharge plan of care as instructed. Patient/Family Education Needs: Review discharge instructions and plan to follow up with community providers and follow through with contract for safety. Discuss ask me three. MH Services (Omit if N/A) Current MH Services: [employer] PANELBOARD OPERATOR Disposition Transport via of: Other ([employer] PANELBOARD OPERATOR provided transportation)
== END 2023-05-06 13:53 | disposition home or self-care (01) ==
PROVIDERS: Student in an Organized Health Care Education/Training Program; Emergency Provider Student in an Organized Health Care Education/Training Program; PCP Family Medicine
DX: F32.A Depression, unspecified (principal); R45.851 Suicidal ideations
CPT/HCPCS: 36415; 80053; 80307; 81025; 87426; 99285; 71045; 80320; 80329; 81003; 84443; 85025

== ENCOUNTER 2023-06-12 22:04 | Emergency (ER) | payer MEDICAID, SELFPAY ==
[2023-06-12 22:08] VITALS: BP 103/68; PULSE 74; RESP 12; TEMP 36.5; O2SAT 99
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
[2023-06-12 22:34] LABS: Bilirubin Negative (Negative); Blood Negative (Negative); Clarity Clear (Clear); Glucose Negative (Negative); Ketones Negative (Negative); Leukocyte Esterase Negative (Negative); Nitrite Negative (Negative)
[2023-06-12 22:46] LABS: *AMPHETAMINES SCREEN URINE Negative (Negative); *BARBITURATES SCREEN URINE Negative (Negative); *BENZODIAZEPINES SCREEN URINE Positive (Negative); Cannabinoids THC Negative (Negative); Cocaine Screen,Urine Negative (Negative); METHADONE URINE SCREEN Negative (Negative); OPIATES URINE SCREEN Negative (Negative); Tricyclic Antidepressants Negative (Negative)
[2023-06-13 08:57] VITALS: BP 100/67; PULSE 82; TEMP 36.2; O2SAT 96
[2023-06-13] MEDS: Venlafaxine 75 MG CAPCR PO (09:17)
[2023-06-13] MEDS: lamoTRIgine 25 MG TAB PO (09:17)
[2023-06-13] MEDS: busPIRone 5 MG TAB PO (09:17)
[2023-06-13] MEDS: ALPRAZolam 0.5 MG TAB 1 MG PO (09:18)
--- NOTE | 2023-06-13 10:00 | PDOC.CMSAFE ---
Date of service: 06/13/23 Time of Service: 10:01 Care Management Safety Plan Status Status: Voluntary Reason for Wait Reason for Wait: Inpatient Admission Safety Plan Safety Plan: CHIEF COMPLAINT: Gonzalo presents in the ED on 06/12/23 stating they have not slept in several days and expressing homicidal ideation towards family members. Gonzalo is evaluated by [facility] shortly after arrival at the hospital and the decision is made for Gonzalo to remain in the ED through the night and be reassessed in the morning. Today, Gonzalo meets with Matt, [facility] crisis screener, for a re-evaluation. They are able to enter into a safety plan and are discharged home. They will follow up with [facility], community providers, and plan of care as instructed. VOLUNTARY FOR INPATIENT PSYCHIATRIC STABILIZATION.? Patient is appropriate in all interactions since arriving at [facility]; Pt has demonstrated appropriate coping and communication skills, has articulated his or her needs and concerns and is fully engaged during staff interactions. Safety plan has been established with patient, and care team, to adhere to patient goals, identify restrictions based on behavioral status, address nutrition, and determine allowed personal belongings, tools for hygiene and personal care. Determine level of activity including ambulation, level of supervision, visitors, and determine privileges based on behaviors and level of engagement by pt. SAFETY PLAN: 1. Will remain on suicide precautions. In Paper Clothes. 2. Will remain in room under direct supervision of one-on-one staff at all times provided by [employer], BRAILLE DUPLICATING MACHINE OPERATOR, TINNER AUTOM[employer] mellowing machine operator. 3. May have paper cups, plates, finger foods as well as a cardboard spoon with which to eat meals. 4. Follow [facility] Management of the Admitted Behavioral Health Patient policy. 5. Comfort bath system only, shower permitted at RN discretion. 6. No personal belongings-soft items permitted at RN discretion. 7. Visitors: Per [facility] Visitor Policy and at RN discretion. 8. Activities: soft cart items, television and other activities at RN discretion. 9.? Bathroom privileges without limitation on Zone B. 10. Phone: contact limited to family at this time, via cordless phone at RN discretion. 11. Due to VOLUNTARY status, if patient wishes to leave [facility], staff will contact [facility] Crisis Screener ([phone]) and On-Call Tumbling Machine Operator ([phone]) as soon as possible. In the event of elopement, notify [facility] Police ([phone]). Patient is currently voluntarily at [facility] and seeking inpatient admission when a bed becomes available. [facility] Frontline Remote Sensing Specialist will continue seeking placement. Please contact the Account Executive [employer] Tumbling Machine Operator ([phone]) and [facility] Remote Sensing Specialist ([phone]) for any needed changes in the Safety Plan. Safety plan has been provided to interdepartmental care team.
[2023-06-13 10:06] LABS: HCG Qual (Urine) Negative
--- NOTE | 2023-06-13 11:53 | ED.PROG_ITS ---
Date of service: 06/13/23 Time of Service: 11:53 Medical Decision Making Patient was signed out to me pending potential placement or disposition. Mental [facility] has contacted us and they have safety plan the patient. Patient agrees with this plan. Patient will be discharged. I have extensively reviewed the tr eatment plan and discharge instructions with the patient. I have addressed all patient concerns at this time. The patient was made aware of what symptoms to monitor for that would warrant a return to the emergency department. Discussed the plan with the patient, they demonstrate verbal understanding and agreement with our assessment and plan at this time. The documentation in this chart was dictated using [employer] dictation software. Please excuse any dictation errors. Sign Out Sign Out Data: Sign Out Comment: thoughts of hurting others, currently voluntary but will be reassessed in the AM Last updated by Moe Knutson MD at 06/13/23 00:25 Discharge Plan Disposition Patient Disposition: Home Discharge Details Chief Complaint: PsychEval Clinical Impression: Depression Primary Care Provider: Eric Singer ED Provider: Jose Armando Whiting Home Meds and New Rx's Prescriptions: No Action triamcinolone acetonide 0.5 % cream 1 applic topical BID PRN (Reason: rash) Qty: 15 3RF alprazolam 1 mg tablet 1 mg PO TID PRN (Reason: anxiety) Qty: 42 0RF medroxyprogesterone [Depo-Provera] 150 mg/mL syringe 150 mg IM Q12W Qty: 1 4RF (DME) nebulizer accessories Kit See Rx Instructions .ROUTE .MEDSUPPLY Qty: 1 0RF Rx Instructions: Please dispense tubing for nebulizer, and use as directed ipratropium-albuterol 0.5 mg-3 mg(2.5 mg base)/3 mL solution for nebulization 3 ml inhalation Q4H PRN (Reason: wheezing) Qty: 180 0RF Rx Instructions: Asthma exacerbation--start by taking 3x/d & q4h PRN SOB, wheeze, cough. rizatriptan [Maxalt-METER/RELAY TECHNICIAN] 10 mg tablet,disintegrating See Rx Instructions PO .COMPLEX Qty: 12 5RF Rx Instructions: take 1 tab at onset of headache; if no relief may repeat 1 tab after at least 2 hrs; max = 3 tabs/24 hr PO albuterol sulfate [ProAir HFA] 90 mcg/actuation HFA aerosol inhaler 2 puff Inhalation Q4H PRN Qty: 1 5RF (DME) nebulizers Misc See Rx Instructions .Route Qty: 1 0RF Rx Instructions: As directed, prn for asthma attacks ondansetron 4 mg tablet,disintegrating 4 mg PO Q6H PRN (Reason: nausea and vomiting) Qty: 30 0RF Abilify Maintena 400 mg suspension,extended rel recon 400 mg IM QMONTH prazosin 2 mg capsule 4 mg PO QHS venlafaxine [Effexor XR] 75 mg capsule,extended release 24hr 75 mg PO DAILY buspirone 5 mg tablet 5 mg PO BID epinephrine [EpiPen] 0.3 mg/0.3 mL auto-injector 0.3 mg IM Q4H PRN (Reason: anaphylaxis) Qty: 2 0RF lamotrigine 25 mg tablet 25 mg PO DAILY Discharge Instructions Instructions: Depression (ED) Additional Instructions: At this time we have been able to create a safety plan with you and our mental health advocates for an appropriate plan for discharge. Please abide by this. If you notice any worsening of your symptoms, or any new symptoms such as vomiting, diarrhea, fever, chills, shortness of breath, chest pain, numbness, weakness, or fainting , please return immediately to the emergency department for reevaluation. Please follow up with your primary care provider as soon as possible for reassessment and reevaluation. As always, it was a pleasure participating in your medical care today. Referrals: Eric Singer DO [Primary Care Provider] -
--- NOTE | 2023-06-13 22:50 | PDOC.MHCN_ITS ---
Date of service: 06/13/23 Time of Service: 11:22 PHQ-9 Over the last 2 weeks, how often have you been bothered by any of the following problems? 1. Little interest or pleasure in doing things: several days 2. Feeling down, depressed, or hopeless: not at all 3. Trouble falling or staying asleep, or sleeping too much: nearly every day 4. Feeling tired or having little energy: not at all 5. Poor appetite or overeating: nearly every day 6. Feeling bad about yourself - or that you are a failure or have let yourself and your family down: several days 7. Trouble concentrating on things, such as reading the newspaper or watching television: several days 8. Moving or speaking so slowly that other people could have noticed? - Or the opposite - being so fidgety or restless that you have been moving around a lot more than usual: nearly every day 9. Thoughts that you would be better off or of hurting yourself in some way: not at all Total score: 12 If you checked off any problems, how difficult have these problems made it for you to do your work, take care of things at home, or get along with other people?: very difficult PHQ-9 Results: Positive Source: Developed by Drs. Sea Kemp, Vanita Swenson, Everette Arias and colleagues, with an educational zoya from [employer]. Suicide Severity Rate CSSRS Have you wished you were or wished you could go to sleep and not wake up?: No Have you actually had any thoughts of killing yourself?: No CSSRS3 Have you ever done anything, started to do anything or prepared to do anything to end your life?: Yes CSSRS4 Was this within the past three months?: No Screening Score Total Score: 2 Screening: Positive Mental Health Emergency Note Release [facility] release signed:: Yes Reason for Visit The client is well established within the WELLNESS DIRECTOR program at [facility]. Per the clients WELLNESS DIRECTOR team the client has been struggling stating that they are hypo-manic. The client presents to [facility] last evening with chief complaint of HI and hallucinations. Due to the client falling asleep during the assessment last evening a full assessment could not be completed. This commercial underwriter sees the client via zoom at [facility] for disposition on next steps. In the last 2 weeks has the pt presented for ES prior to today?: No Client Information Client is: WELLNESS DIRECTOR Well Housed: No,status: Not homeless, Unstable housing Current Treatment Team if applicable First care sales floor team member: Name: Tamica Baxter Role: WELLNESS DIRECTOR case foldermanager transition Info: [phone] Second care sales floor team member: Name: Evelyn Ackerman Role: Psychiatric nurse practitioner Contact Info: [phone] Third care sales floor team member: Name: Davenport Esther Role: [facility] therapist Contact Info: [phone] Non Suicidal Self Injury Current: No History: yes, Hx of NSSI via cutting Safety Risk/Harm to Self or Others Current Ideation to Harm Self or Others: No Risk: Does risk to harm exist?: No Risk: N/A Duty to warn indicated: No Asssessment/Mental Status Appearance: Disheveled Attitude: Cooperative Behavior: Unremarkable Speech: Soft and Slow Affect: Flat and Cogruent with mood Mood: Depressed Thought process: Unremarkable Hallucinations: No Delusions: No Attention: Unremarkable Perception: Not impaired Orientation: Fully orientated Memory: Intact Insight: Good Judgement: Good Neurovegetative Symptoms Sleep: Decrease Appetitie: Decrease Interests: Decrease Energy: Decrease Libido: Not applicable Substance Use: Do you use nicotine?: No Have you used substances in the last 7 days?: No Additional Issues: Assaultive/Threatening Behavior: No Medical Concerns: No Client engaged in active self harm w/weapon: No Threatening to run away: No Child reported abuse/neglect: No Voluntarily presenting for services: Yes Domestic violence is a concern: No Extreme Psychosis or extreme behavior is present: No Impression The client is a 27 year old single transgender male that uses the pronouns he/him or they/them. This commercial underwriter meets with the client via zoom at [facility] ED. The client presents with symptoms most congruent to bi-polar disorder as ev idenced by inconsistent moods, dysregulated sleep, and disorganized eating. The client reports prior to their arrival last night they had not slept in 5 days and was having fleeting homicidal ideations, however denies intent or plan to act on thoughts. The client reports decrease in energy and loss of interest, however reports this is related to losing custody of their daughter recently. The client would benefit from continuing outpatient supports within their WELLNESS DIRECTOR team. Resources Reosurces reviewed and given:: 988 and [facility] (Follow-up with WELLNESS DIRECTOR team) Plan/Disposition Recommended Disposition: WELLNESS DIRECTOR (Follow-up with WELLNESS DIRECTOR team). Plan: Based on this writers assessment of the client, they do not meet criteria for inpatient treatment at this time, nor is the client interested in treatment at this time. The client and this commercial underwriter create pro-active safety plan which includes follow-up phone call with WELLNESS DIRECTOR team this afternoon at , attend therapy appointment on Saturday, attend medication appointment on 06/27, and take medications as prescribed. The client is also reminded of [facility] 24 hour phone number as well as [phone] to utilize as an additional resource if needed. Person reported agreement to plan: Yes Reports/communication Outcome discussed with: ED/Personnel (Verbal passover given to ED provider Dr. Whiting)
== END 2023-06-13 12:41 | disposition home or self-care (01) ==
PROVIDERS: Emergency Medicine; Emergency Provider Student in an Organized Health Care Education/Training Program; PCP Family Medicine
DX: F32.9 Major depressive disorder, single episode, unspecified (principal)
CPT/HCPCS: 80307; 99285; 81003; 81025

== ENCOUNTER 2023-06-16 17:57 | Emergency (ER) | payer MEDICAID, SELFPAY ==
[2023-06-16 17:56] VITALS: BP 94/58; PULSE 87; RESP 22; TEMP 36.7; O2SAT 99
--- NOTE | 2023-06-16 18:15 | DI.RAD_ITS ---
Exam(s) XR CHEST 2V PA LATERAL EXAM: XR CHEST 2V PA LATERAL CLINICAL HISTORY: cough, asthma TECHNIQUE: 2D digital imaging was performed. COMPARISON: CR,XR XR PORTABLE CHEST AP from 05/04/2023 FINDINGS: HEART: Normal size. Aorta: Not dilated. PULMONARY VASCULATURE: Normal. LUNGS: Clear. PLEURAL SPACE: No pleural effusion or pneumothorax. BONE:Unremarkable for age. This active on deformity. IMPRESSION: No acute abnormality. DATA REPOSITORY: RADIATION DOSE DELIVERED:
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
[2023-06-16] MEDS: Dexamethasone 10 MG/ML VIAL PO (18:26)
[2023-06-16 18:27] VITALS: PULSE 90; RESP 16; RESP 4; O2SAT 98
[2023-06-16] MEDS: Albuterol/Ipratropium 3 ML UPD VIAL UPD (18:27)
[2023-06-16 18:52] VITALS: BP 94/58; PULSE 87; RESP 16; TEMP 36.7; O2SAT 99
[2023-06-16 18:54] VITALS: RESP 16
--- NOTE | 2023-06-16 19:39 | DI.VRAD_ITS ---
PROCEDURE INFORMATION: Exam: XR Chest Exam date and time: 06/16/2023 7:23 PM Age: 27 years old Clinical indication: Patient HX: Cough, asthma TECHNIQUE: Imaging protocol: Radiologic exam of the chest. Views: 2 views. COMPARISON: CR XR PORTABLE CHEST AP 05/04/2023 10:39 PM FINDINGS: Lungs: Moderate bilateral hyperinflation consistent with air trapping. This could be secondary to reactive airway disease or an upper respiratory infection. No infiltrates. No edema. Pleural spaces: No pleural effusion. No pneumothorax. Heart/Mediastinum: Normal heart size and mediastinal contour. Bones/joints: Unremarkable. IMPRESSION: 1. Moderate bilateral hyperinflation. 2. No acute infiltrates. No acute pleural changes. Dictated and Authenticated by: Emre Clement MD. Ordering:CARRILLO Harris MD
[2023-06-16 20:56] VITALS: BP 104/68; PULSE 90; RESP 16; O2SAT 95
--- NOTE | 2023-06-20 13:15 | HOLTER_ITS ---
APPROVED REPORT Conclusion This is a 48-hour Holter monitor ordered for near syncope Rhythm throughout was sinus. Average heart rate was 75. Minimum was 50, maximum 133 There were 2 ventricular ectopic beats There was 1 atrial premature beat There was no atrial fibrillation, no SVT, no high-grade AV block, no pauses greater than 3 seconds No patient symptoms were reported
== END 2023-06-16 21:10 | disposition home or self-care (01) ==
PROVIDERS: Emergency Provider Emergency Medicine; PCP Family Medicine
DX: B34.9 Viral infection, unspecified (principal)
CPT/HCPCS: 94640; 99283; 71046; 99284; J1100; J7620

== ENCOUNTER 2023-06-20 13:29 | Outpatient (RCR) | payer MEDICAID, SELFPAY | END 2023-07-09 23:59 | disposition home or self-care (01) | LOC: CARDOPNVT 13:29 | PROVIDERS: PCP Family Medicine; Visit Provider Family Medicine | DX: R55 Syncope and collapse (principal) | CPT/HCPCS: 93225; 93226 ==

== ENCOUNTER 2023-06-28 01:36 | Outpatient (CLI) | payer MEDICAID, SELFPAY ==
--- NOTE | 2023-06-28 07:00 | DI.US_ITS ---
Exam(s) US CAROTID EXAM: US CAROTID CLINICAL HISTORY: Evaluate for stensosis or atypical anatomy,POSTURAL ORTHOSTATIC TACHYCARDIA. TECHNIQUE: Ultrasound carotids performed using grayscale, color-flow, and spectral Doppler imaging. COMPARISON: US US ECHOCARDIOGRAM from 04/11/2022 FINDINGS: CAROTID ARTERIES: There is only very minimal plaque seen bilaterally at the level of the carotid bulb s and proximal internal carotid arteries. However, there appear to be mildly elevated velocities, as detailed below. These losses would point to moderate stenosis bilaterally which is discordant with the visual images. VERTEBRAL ARTERIES: Antegrade flow is demonstrated in both vertebral arteries. Measurements: R Bulb: 132.6cm/s PS / 34.6cm/s ED R CCA: 137cm/s PS / 36.8cm/s ED R ECA: 115.2cm/s PS / 25.9cm/s ED R ICA Prox: 123.9cm/s PS / 32.5cm/s ED R ICA Mid: 136.3cm/s PS / 46.1cm/s ED R ICA Distal: 96.6cm/s PS /41.8cm/s ED R Vert: 58.2cm/s PS / 23.5cm/s ED R SVR: 1 R DVR: 1.3 L Bulb: 110.9cm/s PS / 32.5cm/s ED L CCA: 126cm/s PS / 35.8cm/s ED L ECA: 108.7cm/s PS / 15cm/s ED L ICA Prox: 115.2cm/s PS / 36.8cm/s ED L ICA Mid: 92.9cm/s PS / 40cm/s ED L ICA Distal: 80.1cm/s PS / 16.2cm/s ED L Vert: 61.1cm/s PS / 20.7cm/s ED L SVR: 0.9 L DVR: 1 IMPRESSION: Mildly elevated velocities bilaterally in the carotid arteries in the neck but with minimal if any si gnificant plaque evident on the images. Because of this discordance I recommend further imaging ei er with MRA or CTA. Antegrade flow is demonstrated in both vertebral arteries in the neck. Criteria for Carotid Stenosis: Normal: ICA PSV <125 cm/s no plaque or intimal thickening is visible. <50% stenosis: ICA PSV <125 cm/s and plaque or intimal thickening is visible. 50-69% stenosis: ICA PSV is 125-250 cm/s and plaque is visible. >70% stenosis to near occlusion: ICA PSV >250 cm/s with visible plaque and luminal narrowing. DATA REPOSITORY:
== END 2023-06-28 01:56 ==
LOC: DI 01:36
PROVIDERS: PCP Family Medicine; Visit Provider Family Medicine
DX: G90.A Postural orthostatic tachycardia syndrome [POTS] (principal)
CPT/HCPCS: 93880

== ENCOUNTER → 2023-07-12 00:51 | Outpatient (CLI) | payer MEDICAID, SELFPAY ==
[2023-07-12] MEDS: Omnipaque 350 MG/ML 500 ML BTL-Imaging package 85 ML IJ (09:29)
[2023-07-12] MEDS: Normal Saline - Diluent 50 ML VIAL IJ (09:29)
--- NOTE | 2023-07-12 09:45 | DI.CT_ITS ---
Exam(s) CT BRAIN NECK CTA EXAM: CT BRAIN NECK CTA CLINICAL HISTORY: eval discordance of carotid art US,recurr syncope,r55,h/o abnl us. TECHNIQUE: Imaging Protocol: Axial CT angiography was performed with multi-slice acquisition and mu lti-planar and 3D reconstructions. CONTRAST MATERIAL: Intravenous: Omnipaque 350 Contrast volume:100 ml COMPARISON: CT CT RENAL COLIC WO from 12/26/2021 US US CAROTID from 06/28/2023 FINDINGS: CT Head W/O and W contrast: Ventricles and Extra axial spaces: Normal in size and morphology for the patient's age. Hemorrhage: None. Cerebral parenchyma: Normal. Midline shift: None. Brainstem/Cerebellum: Normal. Calvarium: Normal. Visualized Paranasal sinuses/Mastoids: Clear. Soft Tissues: Unremarkable. Enhancement: Normal. CTA Brain W: Internal Carotid Arteries: Petrous: Normal. Cavernous: Normal. Cerebral: Normal. Middle Cerebral Arteries: Right: No aneurysm, occlusion or significant stenosis. Left: No aneurysm, occlusion or significant stenosis. Anterior Cerebral Arteries: Right: No aneurysm, occlusion or significant stenosis. Left: No aneurysm, occlusion or significant stenosis. Posterior cerebral Arteries: Right: No aneurysm, occlusion or significant stenosis. Left: No aneurysm, occlusion or significant stenosis. Vertebral Arteries: Right: No aneurysm, occlusion or significant stenosis. Left: No aneurysm, occlusion or significant stenosis. Basilar Artery: No aneurysm, occlusion or significant stenosis. CTA Neck W: Anatomy is conventional. Common Carotid: Right: No evidence of plaque. No dissection, occlusion or significant stenosis. Left: No evidence of plaque. No dissection, occlusion or significant stenosis. External Carotid: Right: No dissection, occlusion or significant stenosis. Left: No dissection, occlusion or significant stenosis. Internal Carotid: Right: No evidence of plaque. No dissection, occlusion or significant stenosis. Left: No evidence of plaque no dissection, occlusion or significant stenosis. Vertebral Artery: Right: No dissection, occlusion or significant stenosis. Left: No dissection, occlusion or significant stenosis. Subclavian arteries normal. Aortic arch and visualized upper lobe pulmonary arteries appear normal. Lung Apices: Normal. Bones: No acute abnormality. Soft Tissues: Normal. IMPRESSION: 1. Normal CTA examination of the [place]. 2. Unremarkable CT Head. 3. Normal CTA examination of the neck. RADIATION DOSE DELIVERED: Total DLP DATA REPOSITORY: All CT scans at this facility are submitted to the National Radiology Data Registry (NRDR) Dose Index Registry (DIR) with the [employer] (ACR). RADIATION OPTIMIZATION: All CT scans at this facility use at least one of these dose optimization te chniques: automated exposure control; mA and/or kV adjustment per patient size (includes targeted exa ms where dose is matched to clinical indication); or iterative reconstruction.
== END ==
PROVIDERS: PCP Family Medicine; Visit Provider Student in an Organized Health Care Education/Training Program
DX: R55 Syncope and collapse (principal); R93.89 Abnormal findings on diagnostic imaging of other specified body structures
CPT/HCPCS: 70496; 70498

== ENCOUNTER 2023-10-01 17:06 | Emergency (ER) | payer MEDICAID, SELFPAY ==
[2023-10-01] VITALS (16 sets, daily range): BP systolic 133; BP diastolic 66; PULSE 58–77; RESP 16–23; O2SAT 97–100
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
[2023-10-01] MEDS: diphenhydrAMINE 25 MG CAP 50 MG PO (17:15)
[2023-10-01] MEDS: predniSONE 20 MG TAB 60 MG PO (17:15)
--- OUTSIDE RECORDS SUMMARY | 2023-10-01 17:24 | XMS_ITS | Continuity of Care Document ---
Author Name Unknown Organization [facility] Address [address] [place] [address] Encounter [facility] [place] NBR [id number] Date(s): 08/09/22 - 08/09/22 [facility] [address] [place] [address]- Encounter Diagnosis Neck strain(Discharge Diagnosis) - 08/09/22 Discharge Disposition: Home or Self Care Attending Physician: Enriqueta Nagel MD Admitting Physician: Enriqueta Nagel MD Allergies, Adverse Reactions, Alerts No Known Allergies Functional Status 08/09/22 Family Member Travel History No recent t ravel Recent Travel History No recent travel Other exposure to Infectious Disease Non e Medications clonazePAM 0.5 mg oral tablet 0 Refill(s) Start Date: 08/09/22 Status: Ordered doxazosin 1 mg oral tablet 0 Refill(s) Start Date: 08/09/22 Status: Ordered doxazosin 1 mg oral tablet 0 Refill(s) Start Date: 08/09/22 Status: Ordered FLUoxetine 20 mg oral capsule 0 Refill(s) Start Date: 08/09/22 Status: Ordered hydrOXYzine hydrochloride 10 mg oral tablet 0 Refill(s) Start Date: 08/09/22 Status: Ordered lithium 300 mg oral tablet 0 Refill(s) Start Date: 08/09/22 Status: Ordered LORazepam 1 mg oral tablet 0 Refill(s) Start Date: 08/09/22 Status: Ordered mirtazapine 15 mg oral tablet 0 Refill(s) Start Date: 08/09/22 Status: Ordered Mental Status 08/09/22 Eye Opening Response [place] Spontaneous ly Best Verbal Response [place] Oriented Best Motor Response [place] Obeys comman ds [place] Coma Score 15 Results Radiology Reports * Exam Date Time Procedure Performing Provider Status 08/09/22 10:[address] Spine Cervical w/o Contrast Naz Diego (Verified) Notes: (CT Spine Cervical w/o Contrast) Reason For Exam: trauma CT Spine Cervical w/o Contrast EXAM DESCRIPTION: CT Spine Cervical w/o Contrast 08/09/2022 INDICATION: TRAUMA TECHNIQUE: All CT scans at this facility use at least one of these dose optimization techniques: Automated exposure control; mA and/or kV adjustment per patient size (includes targeted exams where dose is matched to clinical indication); or iterative reconstruction. CT examination of the cervical spine with thin section axial images including sagittal and coronal MPR images performed on a separate workstation under concurrent supervision. COMPARISON: None FINDINGS: No acute fracture or subluxation. Prevertebral soft tissues are within normal limits. Intervertebral disc spaces are well maintained throughout the cervical region without significant spondylotic changes. No focal lytic or sclerotic lesion Paraspinal soft tissues are unremarkable. Visualized lung apices are clear. IMPRESSION: No acute fracture or subluxation. JOB #: [id number] Final Signed by: Dre Santiago MD Signed (Electronic Signature): 08/09/2022 10:15 am * Exam Date Time Procedure Performing Provider Status 08/09/22 10:[address] Head w/o Contrast Naz Diego; Fide (Verified) Notes: (CT Head w/o Contrast) Reason For Exam: trauma CT Head w/o Contrast EXAM DESCRIPTION: CT Head w/o Contrast 08/09/2022 INDICATION: TRAUMA TECHNIQUE: All CT scans at this facility use at least one of these dose optimization techniques: Automated exposure control; mA and/or kV adjustment per patient size (includes targeted exams where dose is matched to clinical indication); or iterative reconstruction. Axial CT images of the head without contrast. COMPARISON: None FINDINGS: No acute intracranial hemorrhage, mass effect or midline shift. No hydrocephalus. Marmolejo-white differentiation is maintained. Basal cisterns remain patent The calvarium appears intact. Mild right maxillary sinus and bilateral ethmoid sinus mucosal thickening. IMPRESSION: No acute intracranial hemorrhage, mass effect or midline shift. JOB #: [id number] Final Signed by: Dre Santiago MD Signed (Electronic Signature): 08/09/2022 10:11 am Vital Signs Most recent to oldest [Reference Range]: 1 Temperature Tympanic [36.6-37.9 Deg C] 3 6.7 Deg C (08/09/22 8:42 AM) Peripheral Pulse Rate [60-100 bpm] 78 bp m (08/09/22 8:42 AM) Blood Pressure [90-140/60-90 mmHg] 120/6 8mmHg (08/09/22 8:42 AM) Weight 68.04 kg (08/09/22 8:42 AM) Weight Dosing 68.04 kg (08/09/22 9:33 AM) Height 160.020 cm (08/09/22 8:42 AM) Height/Length Dosing 160.020 cm (08/09/22 9:33 AM) Body Mass Index 27.000 kg/m2 (08/09/22 8:42 AM) Social History Social History Type Response Tobacco Current everyday tob acco user Tobacco Use:. 1 per day. Sex Female Hospital Discharge Instructions Patient Education 08/09/2022 09:34:53 Cervical Sprain Cervical Sprain A cervical sprain is a stretch or tear in one or more of the ligaments in the neck. Ligaments are the tissues that connect bones. Cervical sprains can range from mild to severe. Severe cervical sprains can cause the spinal bones (vertebrae) in the neck to be unstable. This can result in spinal corddamage and in serious nervous system problems. The time that it takes for a cervical sprain to heal depends on the cause and extent of the injury.Most cervical sprains heal in 4???6 weeks. What are the causes? Cervical sprains may be caused by trauma, such as an injury from a motor vehicle accident, a fall, or a sudden forward and backward whipping movement of the head and neck (whiplash injury). Mild cervical sprains may be caused by wear and tear over time. What increases the risk? The following factors may make you more likely to develop this condition: ??? Participating in activities that have a high risk of trauma to the neck. These include contact sports, auto racing, gymnastics, and diving. ??? Taking risks when driving or riding in a motor vehicle. ??? Osteoarthritis of the spine. ??? Poor strength and flexibility of the neck. ??? A previous neck injury. ??? Poor posture. ??? Spending long periods in certain positions that put stress on the neck, such as sitting at a computer for a long time. What are the signs or symptoms? Symptoms of this condition include: ??? Pain, soreness, stiffness, tenderness, swelling, or a burning sensation in the front, back, or sides of the neck, shoulders, or upper back. ??? Sudden tightening of neck muscles (spasms). ??? Limited ability to move the neck. ??? Headache. ??? Dizziness. ??? Nausea or vomiting. ??? Weakness, numbness, or tingling in a hand or an arm. Symptoms may develop right away after injury, or they may develop over a few days. In some cases, symptoms may go away with treatment and return (recur) over time. How is this diagnosed? This condition may be diagnosed based on: ??? Your medical history. ??? Your symptoms. ??? Any recent injuries or known neck problems that you have, such as arthritis in the neck. ??? A physical exam. ??? Imaging tests, such as X-rays, MRI, and CT scan. How is this treated? This condition is treated by resting and icing the injured area and doing physical therapy exercises. Heat therapy may be used 2???3 days after the injury occurred if there is no swelling. Depending on the severity of your condition, treatment may also include: ??? Keeping your neck in place (immobilized) for periods of time. This may be done using: ??? A cervical collar. This supports your chin and the back of your head. ??? A cervical traction device. This is a sling that holds up your head. The device removes weight and pressure from your neck, and it may help to relieve pain. ??? Medicines that help to relieve pain and inflammation. ??? Medicines that help to relax your muscles (muscle relaxants). ??? Surgery. This is rare. Follow these instructions at home: Medicines ??? Take [id number]-rdyhlkp and prescription medicines only as told by your health care provider. ??? Ask your health care provider if the medicine prescribed to you: ??? Requires you to avoid driving or using heavy machinery. ??? Can cause constipation. You may need to take these actions to prevent or treat constipation: ??? Drink enough fluid to keep your urine pale yellow. ??? Take vpxq-hrt-uleezno or prescription medicines. ??? Eat foods that are high in fiber, such as beans, whole grains, and fresh fruits and vegetables. ??? Limit foods that are high in fat and processed sugars, such as fried or sweet foods. If you have a cervical collar: ??? Wear the collar as told by your health care provider. Do not remove it unless told. ??? Ask before making any adjustments to your collar. ??? If you have long hair, keep it outside of the collar. ??? Ask your health care provider if you may remove the collar for cleaning and bathing. If so: ??? Follow instructions about how to remove it safely. ??? Clean it by hand with mild soap and water and air-dry it completely. ??? If your collar has removable pads, remove them every 1???2 days and wash them by hand with soapand water. Let them air-dry completely before putting them back in the collar. ??? Tell your health care provider if your skin under the collar has irritation or sores. Managing pain, stiffness, and swelling ??? If directed, use a cervical traction device as told. ??? If directed, put ice on the affected area. To do this: ??? Put ice in a plastic bag. ??? Place a towel between your skin and the bag. ??? Leave the ice on for 20 minutes, 2???3 times a day. ??? If directed, apply heat to the affected area before you do your physical therapy or as often astold by your health care provider. Use the heat source that your health care provider recommends, such as a moist heat pack or a heating pad. ??? Place a towel between your skin and the heat source. ??? Leave the heat on for 20???30 minutes. ??? Remove the heat if your skin turns bright red. This is especially important if you are unable to feel pain, heat, or cold. You may have a greater risk of getting burned. Activity ??? Do not drive while wearing a cervical collar. If you do not have a cervical collar, ask if it is safe to drive while your neck heals. ??? Do not lift anything that is heavier than 10 lb (4.5 kg), or the limit that you are told, untilyour health care provider says that it is safe. ??? Rest as told by your health care provider. ??? If physical therapy was prescribed, do exercises as told by your health care provider or physical therapist. ??? Return to your normal activities as told by your health care provider. Avoid positions and activities that make your symptoms worse. Ask your health care provider what activities are safe for you. General instructions ??? Do not use any products that contain nicotine or tobacco, such as cigarettes, e-cigarettes, andchewing tobacco. These can delay healing. If you need help quitting, ask your health care provider. ??? Keep all follow-up visits as told by your health care provider or physical therapist. This is important. How is this prevented? To prevent a cervical sprain from happening again: ??? Use and maintain good posture. Make any needed adjustments to your workstation to help you do this. ??? Exercise regularly as told by your health care provider or physical therapist. ??? Avoid risky activities that may cause a cervical sprain. Contact a health care provider if you have: ??? Symptoms that get worse or do not get better after 2 weeks of treatment. ??? Pain that gets worse or does not get better with medicine. ??? New, unexplained symptoms. ??? Sores or irritated skin on your neck from wearing your cervical collar. Get help right away if: ??? You have severe pain. ??? You develop numbness, tingling, or weakness in any part of your body. ??? You cannot move a part of your body (you have paralysis). ??? You have neck pain along with severe dizziness or headache. Summary ??? A cervical sprain is a stretch or tear in one or more of the ligaments in the neck. ??? Cervical sprains may be caused by trauma, such as an injury from a motor vehicle accident, a fall, or a sudden forward and backward whipping movement of the head and neck (whiplash injury). ??? Symptoms may develop right away after injury, or they may develop over a few days. ??? This condition may be treated with rest, ice, heat, medicines, physical therapy, and surgery. This information is not intended to replace advice given to you by your health care provider. Make sure you discuss any questions you have with your health care provider. Document Revised: 05/04/2020 Document Reviewed: 05/04/2020 [email or web address] Patient Education ?? 2021 [employer]. Emergency department Discharge instructions * John Ware MD: PERFORM Event Display: ED Discharge Information Authored Date: [id number] MJ HARTMAN :1995 Age:27 years Sex:Female Visit Date:08/09/2022 Discharge Instructions We would like to thank you for allowing us to assist you with your healthcare needs. The following includes patient education materials and information regarding your injury/illness. Diagnosis from Today's Visit Neck strain Discharge Vitals Temperature??(Tympanic) 98.1 ??F (36.7 ??C) Heart Rate??(Peripheral) 78 Blood Pressure?? 120/68?? Height?? 63.00 in (160.020 cm) Weight?? 150.03 lb (68.04 kg) BMI?? 27.000 Allergies No Known Allergies What to Do Next Instructions from Your Care Team Rest. Ibuprofen as directed over the counter for pain. Followup with regular doctor or return for worsening symptoms You were treated today on an emergency basis; it may be jimenez to contact your primary care provider to notify them of your visit today. You may have been referred to your regular doctor or a specialist, please follow up as instructed. If your condition worsens or you can't get in to see the doctor, contact the Emergency Department. Medications What When Instructions Next Dose Unchanged clonazePAM (clonazePAM 0.5 mg oral tablet) Unchanged doxazosin (doxazosin 1 mg oral tablet) Unchanged doxazosin (doxazosin 1 mg oral tablet) Unchanged FLUoxetine (FLUoxetine 20 mg oral capsule) Unchanged hydrOXYzine (hydrOXYzine hydrochloride 10 mg oral tablet) Unchanged lithium (lithium 300 mg oral tablet) Unchanged LORazepam (LORazepam 1 mg oral tablet) Unchanged mirtazapine (mirtazapine 15 mg oral tablet) [employer] Cervical Sprain A cervical sprain is a stretch or tear in one or more of the ligaments in the neck. Ligaments are the tissues that connect bones. Cervical sprains can range from mild to severe. Severe cervical sprains can cause the spinal bones (vertebrae) in the neck to be unstable. This can result in spinal corddamage and in serious nervous system problems. The time that it takes for a cervical sprain to heal depends on the cause and extent of the injury.Most cervical sprains heal in 4???6 weeks. What are the causes? Cervical sprains may be caused by trauma, such as an injury from a motor vehicle accident, a fall, or a sudden forward and backward whipping movement of the head and neck (whiplash injury). Mild cervical sprains may be caused by wear and tear over time. What increases the risk? The following factors may make you more likely to develop this condition: ? Participating in activities that have a high risk of trauma to the neck. These include contact sports, auto racing, gymnastics, and diving. ? Taking risks when driving or riding in a motor vehicle. ? Osteoarthritis of the spine. ? Poor strength and flexibility of the neck. ? A previous neck injury. ? Poor posture. ? Spending long periods in certain positions that put stress on the neck, such as sitting at a computer for a long time. What are the signs or symptoms? Symptoms of this condition include: ? Pain, soreness, stiffness, tenderness, swelling, or a burning sensation in the front, back, or sides of the neck, shoulders, or upper back. ? Sudden tightening of neck muscles (spasms). ? Limited ability to move the neck. ? Headache. ? Dizziness. ? Nausea or vomiting. ? Weakness, numbness, or tingling in a hand or an arm. Symptoms may develop right away after injury, or they may develop over a few days. In some cases, symptoms may go away with treatment and return (recur) over time. How is this diagnosed? This condition may be diagnosed based on: ? Your medical history. ? Your symptoms. ? Any recent injuries or known neck problems that you have, such as arthritis in the neck. ? A physical exam. ? Imaging tests, such as X-rays, MRI, and CT scan. How is this treated? This condition is treated by resting and icing the injured area and doing physical therapy exercises. Heat therapy may be used 2???3 days after the injury occurred if there is no swelling. Depending on the severity of your condition, treatment may also include: ? Keeping your neck in place (immobilized) for periods of time. This may be done using: ? A cervical collar. This supports your chin and the back of your head. ? A cervical traction device. This is a sling that holds up your head. The device removes weight and pressure from your neck, and it may help to relieve pain. ? Medicines that help to relieve pain and inflammation. ? Medicines that help to relax your muscles (muscle relaxants). ? Surgery. This is rare. Follow these instructions at home: Medicines ? Take vqpc-cwy-bnllrzz and prescription medicines only as told by your health care provider. ? Ask your health care provider if the medicine prescribed to you: ? Requires you to avoid driving or using heavy machinery. ? Can cause constipation. You may need to take these actions to prevent or treat constipation: ? Drink enough fluid to keep your urine pale yellow. ? Take vpug-ymx-vijvrwn or prescription medicines. ? Eat foods that are high in fiber, such as beans, whole grains, and fresh fruits and vegetables. ? Limit foods that are high in fat and processed sugars, such as fried or sweet foods. If you have a cervical collar: ? Wear the collar as told by your health care provider. Do not remove it unless told. ? Ask before making any adjustments to your collar. ? If you have long hair, keep it outside of the collar. ? Ask your health care provider if you may remove the collar for cleaning and bathing. If so: ? Follow instructions about how to remove it safely. ? Clean it by hand with mild soap and water and air-dry it completely. ? If your collar has removable pads, remove them every 1???2 days and wash them by hand with soap andwater. Let them air-dry completely before putting them back in the collar. ? Tell your health care provider if your skin under the collar has irritation or sores. Managing pain, stiffness, and swelling ? If directed, use a cervical traction device as told. ? If directed, put ice on the affected area. To do this: ? Put ice in a plastic bag. ? Place a towel between your skin and the bag. ? Leave the ice on for 20 minutes, 2???3 times a day. ? If directed, apply heat to the affected area before you do your physical therapy or as often as told by your health care provider. Use the heat source that your health care provider recommends, such as a moist heat pack or a heating pad. ? Place a towel between your skin and the heat source. ? Leave the heat on for 20???30 minutes. ? Remove the heat if your skin turns bright red. This is especially important if you are unable to feel pain, heat, or cold. You may have a greater risk of getting burned. Activity ? Do not drive while wearing a cervical collar. If you do not have a cervical collar, ask if it is safe to drive while your neck heals. ? Do not lift anything that is heavier than 10 lb (4.5 kg), or the limit that you are told, until your health care provider says that it is safe. ? Rest as told by your health care provider. ? If physical therapy was prescribed, do exercises as told by your health care provider or physical therapist. ? Return to your normal activities as told by your health care provider. Avoid positions and activities that make your symptoms worse. Ask your health care provider what activities are safe for you. General instructions ? Do not use any products that contain nicotine or tobacco, such as cigarettes, e- cigarettes, and chewing tobacco. These can delay healing. If you need help quitting, ask your health care provider. ? Keep all follow-up visits as told by your health care provider or physical therapist. This is important. How is this prevented? To prevent a cervical sprain from happening again: ? Use and maintain good posture. Make any needed adjustments to your workstation to help you do this. ? Exercise regularly as told by your health care provider or physical therapist. ? Avoid risky activities that may cause a cervical sprain. Contact a health care provider if you have: ? Symptoms that get worse or do not get better after 2 weeks of treatment. ? Pain that gets worse or does not get better with medicine. ? New, unexplained symptoms. ? Sores or irritated skin on your neck from wearing your cervical collar. Get help right away if: ? You have severe pain. ? You develop numbness, tingling, or weakness in any part of your body. ? You cannot move a part of your body (you have paralysis). ? You have neck pain along with severe dizziness or headache. Summary ? A cervical sprain is a stretch or tear in one or more of the ligaments in the neck. ? Cervical sprains may be caused by trauma, such as an injury from a motor vehicle accident, a fall, or a sudden forward and backward whipping movement of the head and neck (whiplash injury). ? Symptoms may develop right away after injury, or they may develop over a few days. ? This condition may be treated with rest, ice, heat, medicines, physical therapy, and surgery. This information is not intended to replace advice given to you by your health care provider. Make sure you discuss any questions you have with your health care provider. Document Revised: 05/04/2020 Document Reviewed: 05/04/2020 [employer] Patient Education ?? 2021 [employer] Tests Performed Radiology CT Head w/o Contrast 08/09/2022 10:[address] Spine Cervical w/o Contrast 08/09/2022 10:17 EST Patient/2Nd Pressman Signature Patient Name:MJ HARTMAN I have received this information and my questions have been answered. Patient/2Nd Pressman Name: Patient/2Nd Pressman Signature: Relationship to Patient: Witness Name/Signature: Date: Electronically Signed on: 08/09/2022 10:35 ESTSigned by:YANELI CT Head WO contrast * Dre Santiago MD: VERIFY, VERIFY Event Display: Report EXAM DESCRIPTION: CT Head w/o Contrast 08/09/2022 INDICATION: TRAUMA TECHNIQUE: All CT scans at this facility use at least one of these dose optimization techniques: Automated exposure control; mA and/or kV adjustment per patient size (includes targeted exams where dose is matched to clinical indication); or iterative reconstruction. Axial CT images of the head without contrast. COMPARISON: None FINDINGS: No acute intracranial hemorrhage, mass effect or midline shift. No hydrocephalus. Marmolejo-white differentiation is maintained. Basal cisterns remain patent The calvarium appears intact. Mild right maxillary sinus and bilateral ethmoid sinus mucosal thickening. IMPRESSION: No acute intracranial hemorrhage, mass effect or midline shift. JOB #: [id number] Final Signed by: Dre Santiago MD Signed (Electronic Signature): 08/09/2022 10:[address] Cervical spine WO contrast * Dre Santiago MD: VERIFY, VERIFY Event Display: Report EXAM DESCRIPTION: CT Spine Cervical w/o Contrast 08/09/2022 INDICATION: TRAUMA TECHNIQUE: All CT scans at this facility use at least one of these dose optimization techniques: Automated exposure control; mA and/or kV adjustment per patient size (includes targeted exams where dose is matched to clinical indication); or iterative reconstruction. CT examination of the cervical spine with thin section axial images including sagittal and coronal MPR images performed on a separate workstation under concurrent supervision. COMPARISON: None FINDINGS: No acute fracture or subluxation. Prevertebral soft tissues are within normal limits. Intervertebral disc spaces are well maintained throughout the cervical region without significant spondylotic changes. No focal lytic or sclerotic lesion Paraspinal soft tissues are unremarkable. Visualized lung apices are clear. IMPRESSION: No acute fracture or subluxation. JOB #: [id number] Final Signed by: Dre Santiago MD Signed (Electronic Signature): 08/09/2022 10:15 am
== END 2023-10-01 20:06 | disposition home or self-care (01) ==
PROVIDERS: Emergency Provider Physician Assistant; PCP Family Medicine
DX: T78.1XXA Other adverse food reactions, not elsewhere classified, initial encounter (principal); R11.2 Nausea with vomiting, unspecified; F17.290 Nicotine dependence, other tobacco product, uncomplicated; Z91.018 Allergy to other foods
CPT/HCPCS: 99283; J7512

== ENCOUNTER 2023-10-28 13:43 | Outpatient (CLI) | payer MEDICAID, SELFPAY ==
[2023-10-28 11:29] LABS: TSH (W/Ref FT4) 0.56 uIU/mL (0.36-3.74)
[2023-10-28 18:15] LABS: Parathyroid Hormone,Intact 35 pg/mL (19-88)
== END 2023-10-28 13:44 | disposition home or self-care (01) ==
LOC: LBO 13:44
PROVIDERS: PCP Family Medicine; Visit Provider Family Medicine
DX: E04.9 Nontoxic goiter, unspecified (principal)
CPT/HCPCS: 36415; 83970; 84443

== ENCOUNTER → 2023-11-05 02:31 | Outpatient (CLI) | payer MEDICAID, SELFPAY ==
--- NOTE | 2023-11-05 09:15 | DI.US_ITS ---
Exam(s) US THYROID EXAM: US THYROID CLINICAL HISTORY: L sided thyroid enlargement,e04.9. TECHNIQUE: Ultrasound thyroid performed using standard protocol. COMPARISON: CT CT BRAIN NECK CTA from 07/12/2023 FINDINGS: ISTHMUS: 2 mm RIGHT LOBE: Size: 5.2 x 1.3 x 2.1 cm Echogenicity: Normal. Vascularity: Normal. Nodules: 4 x 2 x 3 millimeter colloid cyst near the lower pole. LEFT LOBE: Size: 4.9 x 1.3 x 1.5 cm Echogenicity: Normal. Vascularity: Normal. Nodules: None. OTHER FINDINGS: The patient noted a lump the left of midline which has since resolved. No abnormalit y was seen in this area. IMPRESSION: Incidental small colloid cyst lower pole right lobe of the thyroid. No abnormality noted in the to the left of midline in the neck. DATA REPOSITORY:
== END ==
PROVIDERS: PCP Family Medicine; Visit Provider Family Medicine
DX: E04.1 Nontoxic single thyroid nodule (principal); E04.8 Other specified nontoxic goiter
CPT/HCPCS: 76536

== ENCOUNTER 2023-12-02 13:27 | Outpatient (REF) | payer MEDICAID, SELFPAY ==
[2023-12-02 20:29] LABS: C Diff PCR Positive (Negative)
[2023-12-03 23:59] LABS: Campylobacter PCR Negative (Negative); Salmonella PCR Negative (Negative); Shiga Toxin PCR Negative (Negative); Shigella/Enteroinvasive Ecoli Negative (Negative)
[2023-12-06 15:21] LABS: Calprotectin 179 mcg/g
== END 2023-12-02 13:28 | disposition home or self-care (01) ==
LOC: LBN 13:27
PROVIDERS: PCP Family Medicine; Visit Provider Nurse Practitioner
DX: R19.7 Diarrhea, unspecified (principal); K62.5 Hemorrhage of anus and rectum; M54.89 Other dorsalgia
CPT/HCPCS: 87493; 87505; 83993; 87086; 87177

== ENCOUNTER 2023-12-07 17:23 | Emergency (ER) | payer MEDICAID, SELFPAY ==
[2023-12-07 17:26] VITALS: BP 129/84; PULSE 69; RESP 16; TEMP 36; O2SAT 96
[2023-12-07 17:44] VITALS: BP 129/84; PULSE 69; RESP 16; TEMP 36; O2SAT 96
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
[2023-12-07] MEDS: Normal Saline 1,000 ML 1000 ML IV (18:05)
[2023-12-07] MEDS: Ondansetron 4 MG/2 ML VIAL IVP (18:09)
[2023-12-07 18:11] LABS: Bilirubin Negative (Negative); Blood Negative (Negative); Clarity Sl Cloudy (Clear); Glucose Negative (Negative); Ketones Negative (Negative); Leukocyte Esterase Large (Negative); Nitrite Negative (Negative); Specific Gravity 1.025 (1.005-1.025); Urobilinogen 0.2 mg/dL (Up to 0.2); pH 5.5 (5-8)
[2023-12-07 18:11] LABS: Abs Immature Grans 0.03 10^3/uL (0.0-0.06); Absolute Basophil Count 0.05 10^3/uL (0.0-0.2); Absolute Eosinophil Count 0.23 10^3/uL (0.0-0.7); Absolute Lymphocyte Count 2.76 10^3/uL (1.2-3.4); Absolute Monocyte Count 0.48 10^3/uL (0.1-0.8); Absolute Neutrophil Count 4.35 10^3/uL (1.2-6.7); Basophils % 0.6; Eosinophils % 2.9; HCT 46.1 % (36.0-46.0); HGB 15.2 g/dL (11.2-15.7); Immature Grans % 0.4; Lymphocytes % 34.9; MCH 28.8 pg (27.0-33.0); MCV 88 fL (80-95); MPV 10.3 fL (8.0-11.0); Monocytes % 6.1; Neutrophils % 55.1; Platelet Count 363 10^3/uL (130-400); RBC 5.27 10^6/uL (3.93-5.22); RDW 12.3 % (11.7-14.6)
[2023-12-07 18:19] LABS: Bacteria Moderate HPF (Negative); C & S Indicated? Yes; Casts Negative LPF (Negative); Crystals Negative HPF (Negative); Epithelial Cells Few HPF (Negative); Mucus Negative (Negative); RBC 0-2 HPF (0-2); WBC 20-50 HPF (0-5)
[2023-12-07 18:24] LABS: ALT 34 U/L (14-59); AST 20 U/L (15-37); Albumin 4.3 g/dL (3.4-5.0); Alkaline Phosphatase 111 U/L (46-116); Anion Gap 10.7 mmol/L (3-11); BUN 16 mg/dL (7-18); Bilirubin, Total 0.4 mg/dL (0.2-1.0); CO2 23.3 mmol/L (21.0-32.0); CREATININE 1.1 mg/dL (0.55-1.02); Calcium 10.1 mg/dL (8.5-10.1); Chloride 105 mmol/L (98-107); Estimated GFR 70.19 (mL/min/1.73m2); Glucose 96 mg/dL (74-106); Potassium 3.6 mmol/L (3.5-5.1); Sodium 139 mmol/L (136-145); Total Protein 8.4 g/dL (6.4-8.2)
[2023-12-07] MEDS: cefTRIAXone 1 GM/50 ML BAG IVPB (18:56)
[2023-12-07 19:00] VITALS: BP 131/72; PULSE 59; RESP 18; O2SAT 97
== END 2023-12-07 19:23 | disposition home or self-care (01) ==
PROVIDERS: Emergency Provider Registered Nurse Emergency; PCP Family Medicine
DX: R51.9 Headache, unspecified (principal); N39.0 Urinary tract infection, site not specified; F17.290 Nicotine dependence, other tobacco product, uncomplicated
CPT/HCPCS: 36415; 80053; 87077; 96361; 96365; 96375; 99284; 81003; 81015; 85025; 87086; 87186; J0696; J2405

== ENCOUNTER 2023-12-23 13:31 | Emergency (ER) | payer MEDICAID, SELFPAY ==
[2023-12-23 13:47] VITALS: BP 115/78; PULSE 89; RESP 16; TEMP 36.9; O2SAT 99
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
[2023-12-23 14:50] LABS: Abs Immature Grans 0.02 10^3/uL (0.0-0.06); Absolute Basophil Count 0.07 10^3/uL (0.0-0.2); Absolute Eosinophil Count 0.34 10^3/uL (0.0-0.7); Absolute Lymphocyte Count 1.72 10^3/uL (1.2-3.4); Absolute Monocyte Count 0.75 10^3/uL (0.1-0.8); Absolute Neutrophil Count 6.03 10^3/uL (1.2-6.7); Basophils % 0.8; Eosinophils % 3.8; HCT 44.8 % (36.0-46.0); HGB 14.9 g/dL (11.2-15.7); Immature Grans % 0.2; Lymphocytes % 19.3; MCH 29.1 pg (27.0-33.0); MCHC 33.3 % (32.0-36.0); MCV 88 fL (80-95); MPV 10.5 fL (8.0-11.0); Monocytes % 8.4; Neutrophils % 67.5; Platelet Count 317 10^3/uL (130-400); RBC 5.12 10^6/uL (3.93-5.22); RDW 12.6 % (11.7-14.6); RDW-SD 40.7 fL; WBC 8.93 10^3/uL (4.4-10.8)
[2023-12-23] MEDS: Droperidol 5 MG/2 ML VIAL 2.5 MG IVP (14:53)
[2023-12-23] MEDS: Normal Saline 1,000 ML 1000 ML IV (14:54)
[2023-12-23] MEDS: Normal Saline Flush 10 ML SYR IVP (14:54)
[2023-12-23 15:04] LABS: ALT 27 U/L (14-59); AST 14 U/L (15-37); Albumin 4.1 g/dL (3.4-5.0); Alkaline Phosphatase 95 U/L (46-116); Anion Gap 13.1 mmol/L (3-11); BUN 15 mg/dL (7-18); Bilirubin, Total 0.3 mg/dL (0.2-1.0); CO2 24.9 mmol/L (21.0-32.0); Calcium 9.5 mg/dL (8.5-10.1); Chloride 103 mmol/L (98-107); Glucose 88 mg/dL (74-106); Magnesium 2.1 mg/dL (1.8-2.4); Potassium 3.6 mmol/L (3.5-5.1); Sodium 141 mmol/L (136-145); Total Protein 8.5 g/dL (6.4-8.2)
[2023-12-23 15:05] LABS: Bilirubin Small (Negative); Blood Small (Negative); Clarity Sl Cloudy (Clear); Glucose Negative (Negative); Ketones 40 mg/dL (Negative); Leukocyte Esterase Trace (Negative); Nitrite Negative (Negative); Specific Gravity >= 1.030 (1.005-1.025); Urobilinogen 0.2 mg/dL (Up to 0.2); pH 5.5 (5-8)
[2023-12-23 15:10] LABS: Bacteria Few HPF (Negative); C & S Indicated? Yes; Casts Negative LPF (Negative); Crystals Negative HPF (Negative); Epithelial Cells Few HPF (Negative); Mucus Trace (Negative)
[2023-12-23 15:11] LABS: INR 1.1 (0.9-1.1); PTT Activated 27.6 sec (23.6-32.8); Prothrombin Time 11.4 sec (9.1-11.1)
[2023-12-23 15:17] LABS: HCG Qual (Serum) Negative
[2023-12-23 15:25] LABS: COVID-19 PCR Negative (Negative); Influenza A PCR Negative (Negative); Influenza B PCR Negative (Negative); RSV PCR Negative (Negative)
[2023-12-23 15:27] LABS: Source Nasopharynx
[2023-12-23 16:05] VITALS: BP 108/58; PULSE 75; RESP 12; TEMP 36.5; O2SAT 99
--- NOTE | 2023-12-25 09:07 | NUR.NOTE ---
Accessed patient chart to see if antibiotic was given for urine culture. Nursing Note:
== END 2023-12-23 16:07 | disposition home or self-care (01) ==
PROVIDERS: Emergency Provider Emergency Medicine; PCP Family Medicine
DX: R11.2 Nausea with vomiting, unspecified (principal); R19.7 Diarrhea, unspecified; F17.290 Nicotine dependence, other tobacco product, uncomplicated; Z11.52 Encounter for screening for COVID-19
CPT/HCPCS: 36415; 80053; 87637; 96361; 96374; 99284; 81003; 81015; 83735; 84703; 85025; 85610; 85730; 87086; 99283; J1790

== ENCOUNTER 2024-02-12 09:16 | Emergency (ER) | payer MEDICAID, SELFPAY ==
[2024-02-12 09:21] VITALS: BP 111/73; PULSE 82; RESP 15; TEMP 36.6; O2SAT 96
--- NOTE | 2024-02-12 09:30 | DI.US_ITS ---
Exam(s) US ABDOMEN EXAM: US ABDOMEN CLINICAL HISTORY: right upper quadrant and flank pain TECHNIQUE: Ultrasound abdomen performed using standard protocol. COMPARISON: US US RENAL from 03/20/[address] RENAL COLIC WO from 12/26/2021 FINDINGS: ABDOMINAL AORTA AND IVC: Visualized portions normal caliber. PANCREAS: Normal where visualized. LIVER: The liver shows normal echogenicity. The liver measures 17.6 cm long. Hepatopetal flow in th e Portal Vein. GALLBLADDER:No evidence of cholelithiasis. No evidence of wall thickening. No pericholecystic fluid i dentified. BILIARY SYSTEM: Common bile duct measures < 7 mm. No intrahepatic biliary ductal dilation. SMITH'S SIGN: Negative. KIDNEYS: Kidneys are symmetric in size. No evidence of renal calculi. No evidence of hydronephrosis. No renal mass or cyst identified. SPLEEN: Not enlarged. ASCITES: None seen. IMPRESSION: Mild hepatomegaly. Otherwise unremarkable abdominal ultrasound. DATA REPOSITORY:
[2024-02-12 09:31] VITALS: BP 111/73; PULSE 82; RESP 15; TEMP 36.6; O2SAT 96
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
[2024-02-12] MEDS: Normal Saline 1,000 ML 1000 ML IV (09:55)
[2024-02-12] MEDS: Ketorolac 15 MG/ML VIAL IVP (09:55)
[2024-02-12 09:59] LABS: Abs Immature Grans 0.01 10^3/uL (0.0-0.06); Absolute Basophil Count 0.09 10^3/uL (0.0-0.2); Absolute Lymphocyte Count 2.13 10^3/uL (1.2-3.4); Absolute Monocyte Count 0.64 10^3/uL (0.1-0.8); Absolute Neutrophil Count 3.44 10^3/uL (1.2-6.7); Basophils % 1.3 %; HCT 41.2 % (36.0-46.0); HGB 13.6 g/dL (11.2-15.7); Immature Grans % 0.1 %; Lymphocytes % 30.4 %; MCH 28.9 pg (27.0-33.0); MCV 88 fL (80-95); MPV 10.1 fL (8.0-11.0); Monocytes % 9.1 %; Neutrophils % 49.1 %; Platelet Count 350 10^3/uL (130-400); RBC 4.71 10^6/uL (3.93-5.22); RDW 12.8 % (11.7-14.6); RDW-SD 41.1 fL; WBC 7.01 10^3/uL (4.4-10.8)
[2024-02-12 10:02] LABS: Bilirubin Negative (Negative); Blood Negative (Negative); Clarity Sl Cloudy (Clear); Glucose Negative (Negative); Ketones Negative (Negative); Leukocyte Esterase Small (Negative); Nitrite Negative (Negative); Urobilinogen 0.2 mg/dL (Up to 0.2)
[2024-02-12 10:10] LABS: Bacteria Rare HPF (Negative); C & S Indicated? No; Casts Negative LPF (Negative); Crystals Negative HPF (Negative); Epithelial Cells Few HPF (Negative); Mucus Trace (Negative); Other Cells Rare Renal (Negative); RBC Negative HPF (0-2)
[2024-02-12 10:27] LABS: HCG Qual (Serum) Negative
[2024-02-12 10:31] LABS: ALT 43 U/L (14-59); AST 23 U/L (15-37); Alkaline Phosphatase 129 U/L (46-116); Anion Gap 9.4 mmol/L (3-11); BUN 12 mg/dL (7-18); Bilirubin, Direct 0.1 mg/dL (0.0-0.2); Bilirubin, Total 0.4 mg/dL (0.2-1.0); CO2 25.6 mmol/L (21.0-32.0); CREATININE 0.9 mg/dL (0.55-1.02); Calcium 9.5 mg/dL (8.5-10.1); Chloride 105 mmol/L (98-107); Glucose 91 mg/dL (74-106); Lipase 25 U/L (16-77); Magnesium 1.9 mg/dL (1.8-2.4); Potassium 3.6 mmol/L (3.5-5.1); Sodium 140 mmol/L (136-145); Total Protein 7.7 g/dL (6.4-8.2)
[2024-02-12 11:14] VITALS: BP 116/77; PULSE 68; RESP 16
== END 2024-02-12 11:34 | disposition home or self-care (01) ==
PROVIDERS: Emergency Provider Emergency Medicine; PCP Family Medicine
DX: R10.11 Right upper quadrant pain (principal); F17.290 Nicotine dependence, other tobacco product, uncomplicated
CPT/HCPCS: 36415; 80053; 83690; 96374; 99284; 76700; 81003; 81015; 82248; 83735; 84703; 85025; J1885

== ENCOUNTER 2024-09-22 11:29 | Emergency (ER) | payer MEDICAID, SELFPAY ==
[2024-09-22 11:48] VITALS: BP 97/65; PULSE 89; RESP 18; TEMP 36.6; O2SAT 97
--- NOTE | 2024-09-22 12:00 | DI.RAD_ITS ---
Exam(s) XR CHEST 2V PA LATERAL EXAM: XR CHEST 2V PA LATERAL CLINICAL HISTORY: cough TECHNIQUE: 2D digital imaging was performed. Two views. COMPARISON: CR,XR XR CHEST 2V PA LATERAL from 06/16/2023 FINDINGS: HEART: Normal size. Aorta: Not dilated. PULMONARY VASCULATURE: Normal. MEDIASTINUM: Unremarkable. LUNGS: Clear. PLEURAL SPACE: No pleural effusion or pneumothorax. BONE:Mild pectus excavatum deformity. SOFT TISSUES: Unremarkable. IMPRESSION: No acute abnormality. DATA REPOSITORY: RADIATION DOSE DELIVERED:
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
[2024-09-22 13:50] VITALS: BP 102/87; PULSE 82; RESP 16; O2SAT 98
== END 2024-09-22 14:33 | disposition home or self-care (01) ==
PROVIDERS: Emergency Provider Physician Assistant; PCP Family Medicine
DX: R05.9 Cough, unspecified (principal); K08.89 Other specified disorders of teeth and supporting structures; F17.290 Nicotine dependence, other tobacco product, uncomplicated
CPT/HCPCS: 99283; 71046

== ENCOUNTER 2024-11-09 18:57 | Emergency (ER) | payer MEDICAID, SELFPAY ==
[2024-11-09 19:00] VITALS: BP 113/78; PULSE 67; RESP 15; TEMP 36.6; O2SAT 96
[2024-11-09 20:34] VITALS: BP 101/68; PULSE 63; RESP 20; O2SAT 98
[2024-11-09 20:45] VITALS: BP 101/68; PULSE 63; RESP 20; TEMP 36.6; O2SAT 98
== END 2024-11-09 21:07 | disposition left against medical advice (07) ==
LOC: ER 19:21
PROVIDERS: PCP Family Medicine
DX: Z53.21 Procedure and treatment not carried out due to patient leaving prior to being seen by health care provider (principal)

== ENCOUNTER 2025-01-19 03:56 | Outpatient (CLI) | payer MEDICARE, MEDICAID, SELFPAY ==
[2025-01-19 11:29] LABS: MCHC 32.6 % (32.0-36.0); MCV 89 fL (80-95); MPV 10.4 fL (8.0-11.0); Platelet Count 359 10^3/uL (130-400); RBC 5.17 10^6/uL (3.93-5.22); RDW 12.4 % (11.7-14.6); RDW-SD 40.8 fL; WBC 8.42 10^3/uL (4.4-10.8)
== END 2025-01-19 03:57 | disposition home or self-care (01) ==
LOC: LBO 03:56
PROVIDERS: PCP Family Medicine; Visit Provider Obstetrics & Gynecology
DX: Z01.818 Encounter for other preprocedural examination (principal)
CPT/HCPCS: 36415; 85027; 86850; 86900; 86901; 85014; 85018

== ENCOUNTER 2025-01-20 06:11 | Day surgery (SDC) | payer MEDICARE, MEDICAID, SELFPAY ==
[2025-01-20] VITALS (24 sets, daily range): BP systolic 92–110; BP diastolic 52–71; PULSE 46–66; RESP 10–22; TEMP 36.1–36.8; O2SAT 95–100; BMI 31.6
--- NOTE | 2025-01-20 06:54 | ANES.PREOP_ITS ---
General Info Date of Service Date Performed: 01/20/25 Height: 5 ft 3 in Weight: 81 kg Body Mass Index (BMI): 31.6 Surgical Procedure: Operation Date: 01/20/25 07:40 Proposed Procedure Side Surgeon p Salpingectomy Laparoscopic Bilateral Shama Gillis MD Meds Allergies and Home Medications Allergies Allergy/AdvReac Type Severity Reaction Status Date / Time coconut Allergy Severe Anaphylaxis Verified 01/20/25 06:49 peanut Allergy Intermediate Swelling/Ed Verified 01/20/25 06:49 josy sertraline (From Zoloft) Allergy Unknown Other (See Verified 01/20/25 06:49 Comment) citalopram AdvReac Intermediate insomnia Verified 01/20/25 06:49 ultrasound gel Allergy Intermediate Itching Uncoded 01/20/25 06:49 Home Medication ?Medication ?Instructions ?Recorded nebulizer accessories #1 ea 08/17/19 nebulizers #1 ea 06/07/22 albuterol sulfate 90 mcg/actuation 2 puff inhalation Q4H PRN ##1 11/07/23 aerosol inhaler (ProAir HFA) montelukast 10 mg tablet 10 mg PO DAILY PRN seasonal 01/28/24 allergies #90 tabs fluocinonide 0.05 % topical cream 1 applic topical BID #30 grams 02/07/24 lamotrigine 100 mg tablet 100 mg PO BID 05/18/24 gabapentin 300 mg capsule 600 mg (2 x 300 mg) PO QHS #180 06/23/24 caps prochlorperazine maleate 10 mg 10 mg PO Q8H PRN nausea and 06/23/24 tablet vomiting #30 tabs epinephrine 0.3 mg/0.3 mL 0.3 mg (0.3 mL) IM Q4H PRN 07/03/24 injection, auto-injector (EpiPen) anaphylaxis #2 ea clobetasol 0.05 % topical ointment 1 applic topical BID Eczema 07/23/24 tacrolimus 0.1 % topical ointment 1 applic topical BID Eczema 07/23/24 rizatriptan 10 mg disintegrating See Rx Instructions PO .COMPLEX 90 07/27/24 tablet (Maxalt-DIGITAL PRINT OPERATOR) days #36 tabs ipratropium 0.5 mg-albuterol 3 mg 3 ml inhalation Q4H PRN wheezing 09/14/24 (2.5 mg base)/3 mL nebulization #180 mL soln fremanezumab-vfrm 225 mg/1.5 mL 225 mg (1.5 mL) subcut QMONTH #1.5 10/05/24 subcutaneous syringe (Ajovy mL Syringe) topiramate 100 mg tablet 100 mg PO QHS #90 tabs 10/05/24 metoprolol tartrate 25 mg tablet 25 mg PO BID #180 tabs 12/28/24 Current Visit Medications: Current Medications Generic Name Dose Route Start Last Admin Trade Name Freq PRN Reason Stop Dose Admin Ringer's Solution 1,000 mls @ 125 mls/hr 01/20/25 06:00 IV 01/20/25 23:59 INFUSION OSCAR IV Miscellaneous Supplies 1 each 01/20/25 06:00 Iv Access IV 01/20/25 23:59 DIRECTED OSCAR Sodium Chloride 0 ml 01/20/25 06:00 Normal Saline Flush 10 Ml Syr IV 01/20/25 23:59 PRN PRN Sodium Chloride 0 ml 01/20/25 06:00 Normal Saline 10 Ml Vial IJ 01/20/25 23:59 DIRECTED PRN Sterile Water 0 ml 01/20/25 06:00 Water,Injection,Sterile 10 Ml Vial IJ 01/20/25 23:59 DIRECTED PRN PFSH Active Problems Active Problems: Problem Status Onset Code Right ankle instability Acute M25.371 Tinnitus Acute H93.19 Eczema, dyshidrotic Acute L30.1 Joint hyperextensibility of multiple sites Acute M24.80 Chronic headache Acute R51.9, G89.29 De Quervain's tenosynovitis, right Acute M65.4 Abnormal carotid ultrasound Acute R93.89 POTS (postural orthostatic tachycardia syndrome) Acute G90.A Tobacco dependence Acute F17.200 Gender dysphoria Acute F64.9 Trigger finger, right Acute M65.30 Knee pain, bilateral Acute M25.561, M25.562 Anxiety Chronic F41.9 Nonspecific paroxysmal spell Acute R40.4 Migraine headache without aura Acute G43.009 Contact dermatitis due to adhesive bandage Acute L23.1 Asthma Chronic J45.909 Bronchitis Acute J40 Severe major depression with psychotic features Acute F32.3 Pain, dental Acute K08.89 Syncopal episodes Chronic R55 Allergic rhinitis Resolved 05/27/14 J30.9 Alopecia areata Resolved 05/19/15 L63.9 Suicidal ideation Acute R45.851 Panic disorder Acute F41.0 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 Acute F64.0 Migraine headache with aura Acute G43.109 Pulmonary valve prolapse Chronic 09/13/14 I37.8 Depression Chronic 01/24/15 F32.9 Adjustment disorder with mixed anxiety and depressed mood Chronic F43.23 Major depressive disorder, recurrent episode, severe Chronic F33.2 Medical History Medical History 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; anesthesia given to lower tooth Mrqudj-uy-[id number] transgender person Preferred name: Gonzalo He/Him pronouns Alopecia (capitis) totalis Allergic rhinitis Atopic dermatitis Urinary tract infection requiring hospitalization Surgical History Surgical History Status post dilation and curettage Tobacco Smoking/Tobacco Use Status: Current-Occasional Tobacco Type: cigarettes Smoking cigarettes per day: 5 and e-cigarettes Passive smoking exposure: No Alcohol Alcohol Intake: current Alcohol intake frequency: holidays/special occasions only Substance Use Substance use: Rarely Substance use type: marijuana Details: Last smoked marijuana 01/16/25 Prental History History 2 Para 1 Hx # Term Pregnancies 1 Multiple births Hx # Pregnancies Ectopic pregnancies AB induced Hx Number of Living Children 1 AB spontaneous 1 Past Pregnancies Del. Date GA/Weeks # Preg Succ Route Wgt Sex Labor Lgth Anesth esia Location [facility] 03/03/16 39 No vaginal 2920.001 g Female Kelvin it 04/20/21 6 No KJ Delivery Date: 04/20/21 Last Updated by: Shama Gillis MD SAB - D&C Vital Signs and Lab Results Vital Signs Most Recent Vital Signs in EMR: Most Recent Vital Signs Temp Pulse Resp BP Pulse Ox 36.8 C 63 16 105/70 95 01/20/25 06:40 01/20/25 06:40 01/20/25 06:40 01/20/25 06:40 01/20/25 06:40 Point of Care Results Point of Care Results: POC- Test(urine) Negative 01/20/25 06:49 Lab Results Blood Type / Crossmatch: Antibody Screen NEGATIVE 01/19/25 Complete Blood Count: White Blood Count 8.42 10^3/uL (4.4-10.8) 01/19/25 11:20 Red Blood Count 5.17 10^6/uL (3.93-5.22) 01/19/25 11:20 Hemoglobin 15.0 g/dL (11.2-15.7) 01/19/25 11:20 Hematocrit 46.0 % (36.0-46.0) 01/19/25 11:20 Platelet Count 359 10^3/uL (130-400) 01/19/25 11:20 Complete Metabolic Panel: No Data to Display Liver Function Panel: No Data to Display Coagulation Panel: No Data to Display Cardiac Panel: No Data to Display Arterial Blood Gas: No Data to Display Venous Blood Gas: No Data to Display Pancreas Panel: No Data to Display Thyroid Panel: No Data to Display Infectious Disease: No Data to Display Blood Cultures: No Data to Display Toxicology Panel: No Data to Display Panel: No Data to Display Imaging and Studies Imaging and Studies Study information below may be from another EMR and interpreted by another provider. Please see original notes in EMR for more complete details. EKG Summary: Exam: Resting ECG Reason for Exam: Syncope Patient Location: O HR:63 bpm ECG Measurements Heart Rate 63 AXIS AZ 187 P 32 QRSd 103 QRS 32 QT 385 T-1 QTc 395 Conclusion Sinus rhythm...normal P axis, V-rate 50- 99 Probable left atrial enlargement...P >50mS, <-0.10mV V1 Echocardiogram Summary: 04/11/22: Conclusion Normal left ventricular wall thickness and chamber size. Estimated ejection fraction is 60%. Wall motion is normal Normal right ventricular size and systolic function Both atria are normal in size There is no structural or hemodynamically significant valvular disease Conclusion: Normal echocardiogram Carotid Artery Summary:: 06/28/23: CAROTID ARTERIES: There is only very minimal plaque seen bilaterally at the level of the carotid bulbs and proximal internal carotid arteries. However, there appear to be mildly elevated velocities, as detailed below. These losses would point to moderate stenosis bilaterally which is discordant with the visual images. Anesthesia Assessment and Plan Anesthesia History Personal History: No History of Anesthesia Complications Family History: No Family History of Anesthesia Complications Exercise Tolerance Exercise Tolerance: Metabolic Equivalents>4 Pertinent Negatives Pertinent Negatives: No Symptoms of GERD, No Major Cardiovascular Symptoms or Complaints and No Major Pulmonary Symptoms or Complaints Cardiac & Pulmonary Exam Cardiac Exam: Normal S1/S2 Heart Sounds Pulmonary Exam: Clear Bilateral Breath Sounds Implantable Cardiac Device Does patient have a Pacemaker or an ICD?: No Airway Exam Known Difficult Airway: No Mallampati Class: 3 Mouth Opening: Normal (> 3cm) Thyromental Distance: Greater than 3 cm Neck Range of Motion: Full ROM Neck Circumference: Normal Teeth Condition: Loose or Chipped ASA Classification ASA Score: ASA 2 Emergency Case?: No NPO Status NPO Status: NPO Clears >2 hours, Solids >8 hours Status Status: Negative HCG Anesthesia Plan Resuscitation Status: Full Code Anesthesia Technique: General Anesthesia Airway Planned: Endotracheal Tube Monitors Used: Standard Monitors and SedLine
[2025-01-20] MEDS: Lactated Ringers 1,000 ML 125 ML IV (07:10)
[2025-01-20] MEDS: Bupivacaine 0.25% Pres-Free 30 ML VIAL (08:10)
--- NOTE | 2025-01-20 08:11 | FALL_PTH ---
PATIENT: Gonzalo Scruggs LOC: [facility] U#:[id number] AGE/SX: 29/F ROOM: RE01/20/[address]: Shama Gillis MD : 1995 BED: DIS: 01/20/2025 SPEC #: [id number] RECD: 01/20/25 13:05 STATUS: MEERA RERajeev #: [id number] LEIDA: 01/20/25 08:[address]: Shama Gillis DEPT: Surgical Specimen RECD BY: Daphnie Baeza ENTERED: 01/20/25 13:06 SP TYPE: Fall OTHR DR: Eric Singer DO Tissues: 1 - FALLOPIAN TUBE (STERILIZATION) 2 - FALLOPIAN TUBE (STERILIZATION) Procedures: GROSS AND MICRO LEVEL 2 Comments: [id number]
--- NOTE | 2025-01-20 08:48 | W.PM.OP ---
Operative Note Operative Note PRE-OP DIAGNOSIS: desires permanent sterilization POST-OP DIAGNOSIS: same PROCEDURE: Laparoscopic bilateral salpingectomy SURGEON: Shama Gillis ASSISTING SURGEON: Angélica Marcial Refer to Anesthesia Record ESTIMATED BLOOD LOSS: 10 PATHOLOGY: other (b/l tubes) COMPLICATIONS: None Patient was transported to: same day Patient's condition: stable Indications: Pt desires permanent sterilization. Findings: Normal appearing external genitalia, vagina and cervix. Normal appearing uterus, ovaries and tubes. No obvious abnormalities of the lower abdomen and pelvis. Procedure Description: After informed consent was signed the patient was taken to the operating room and given general anesthesia.? SCDs were placed on his legs.? He was prepped and draped in the dorsal lithotomy position in the [facility].? His bladder was drained of urine prior to arrival in the OR. A speculum was placed into the vagina to expose the cervix and a hulka manipulator was placed into the cervix. The speculum was removed. Gloves were changed and attention was turned to the abdomen. The infraumbilical fold was grasped and injected with 0.25% marcaine with epinephrine. A 5mm incision was made in the infraumbilical fold with the scalpel. A hemostat was used to bluntly dissect the subcuticular layers. The fascia was grasped with len clamps and incised. The incision was extended with blunt pressure. The peritoneum was grasped and incised with metzembaum scissors. The visiport was used to enter the abdomen under direct visualization. Once entrance to the abdominal cavity was confirmed the CO2 was turned on and the abdomen was insufflated. Two lateral 5mm ports were then placed under direct visualization. The left tube was identified and followed to the fimbriated end. The tube was grasped and elevated and the mesosalpinx was clamped, cauterized and cut with the ligasure device. The was continued along the length of the tube. The proximal end of the tube was then transected with the ligasure. Good hemostasis was noted. The right tube was then identified and followed to the fimbriated end. The tube was grasped and elevated and the mesosalpinx was clamped, cauterized and cut with the ligasure device. The was continued along the length of the tube. The proximal end of the tube was then transected with the ligasure. Good hemostasis was noted on both sides. The tubes were removed individually through the ports and noted to be intact. The ports were removed. The gas was released from the abdomen. The skin incisions were then closed with 4-0 vicryl. Mastisol and steristrips were placed. The manipulator was removed. The patient was placed back into the supine position.? He was moved to the stretcher and taken to the recovery room in stable condition. Date of Procedure: 01/20/25
--- NOTE | 2025-01-20 09:45 | W.PM.DSUDISC ---
Date of service: 01/20/25 Discharge Plan Disposition Patient Disposition: Home Condition: Stable Discharge Details Attending Provider: Shama Gillis Primary Care Provider: Eric Singer Home Meds and New Rx's Prescriptions: No Action fluocinonide 0.05 % cream 1 applic topical BID Qty: 30 1RF lamotrigine 100 mg tablet 100 mg PO BID epinephrine [EpiPen] 0.3 mg/0.3 mL auto-injector 0.3 mg IM Q4H PRN (Reason: anaphylaxis) Qty: 2 0RF (DME) nebulizer accessories Kit See Rx Instructions .ROUTE .MEDSUPPLY Qty: 1 0RF Rx Instructions: Please dispense tubing for nebulizer, and use as directed gabapentin 300 mg capsule 600 mg PO QHS Qty: 180 3RF prochlorperazine maleate 10 mg tablet 10 mg PO Q8H PRN (Reason: nausea and vomiting) Qty: 30 1RF Ajovy Syringe 225 mg/1.5 mL syringe 225 mg subcut QMONTH Qty: 1.5 11RF topiramate 100 mg tablet 100 mg PO QHS Qty: 90 3RF (DME) nebulizers Misc See Rx Instructions .Route Qty: 1 0RF Rx Instructions: As directed, prn for asthma attacks albuterol sulfate [ProAir HFA] 90 mcg/actuation HFA aerosol inhaler 2 puff Inhalation Q4H PRN Qty: 1 5RF montelukast 10 mg tablet 10 mg PO DAILY PRN (Reason: seasonal allergies) Qty: 90 3RF tacrolimus 0.1 % ointment 1 applic topical BID Rx Instructions: Apply twice daily in the off wk from steroid ointment (clobetasol) clobetasol 0.05 % ointment 1 applic topical BID Rx Instructions: Apply twice daily for 14 days and then take 1 wk off Repeat as needed rizatriptan [Maxalt-ACCOUNTS PAYABLE CLERK] 10 mg tablet,disintegrating See Rx Instructions PO .COMPLEX 90 Days Qty: 36 3RF Rx Instructions: take 1 tab at onset of headache; if no relief may repeat 1 tab after at least 2 hrs; max = 3 tabs/24 hr PO ipratropium-albuterol 0.5 mg-3 mg(2.5 mg base)/3 mL solution for nebulization 3 ml inhalation Q4H PRN (Reason: wheezing) Qty: 180 0RF Rx Instructions: Asthma exacerbation--start by taking 3x/d & q4h PRN SOB, wheeze, cough. metoprolol tartrate 25 mg tablet 25 mg PO BID Qty: 180 3RF Discharge Instructions Stand Alone Forms: Anesthesia Discharge Inst., DSU Post Donor Relations Manager SurgeryW/Incision, Michael Zhou (DSU) Referrals: Shama Gillis MD [ [facility] STAFF PHYSICIAN] - 01/28/25 11:00 am Activity:: No lifting >20lbs Remove Dressings/Wound Care:: Do Not Remove Shower/Bathe:: 24 hours Diet:: As Tolerated Discharge Orders Discharge Orders: Discharge Order (Routine); Ordered 01/20/25 Ordered By: Shama Gillis
--- NOTE | 2025-01-20 10:10 | W.ANESPOSTOP ---
Postoperative Evaluation Date, Time and Location Date Performed: 01/20/25 Time Performed: 10:10 Patient Location: Day Surgery Unit Vital Signs Most Recent Imported Vital Signs: Most Recent Vital Signs Temp Pulse Resp BP Pulse Ox 36.1 C L 58 L 14 94/62 L 97 01/20/25 10:03 01/20/25 10:03 01/20/25 10:03 01/20/25 10:03 01/20/25 10:03 Pain Score Most Recent Pain Score: Most Recent Pain Score Pain Level 7 01/20/25 10:03 Assessment Mental Status: Awake (Alert & Oriented to Patient Baseline) Airway and Respiratory Function: Patent airway with normal (patient baseline) respiratory exam Cardiovascular Function: Hemodynamically Stable Hydration Status: Adequately Hydrated Nausea & Vomiting: No Nausea or Vomiting Pain: Pain is Moderate or Severe Postoperative Pain Management: Pain being addressed with medication Peripheral Nerve Block: Patient did not receive a nerve block
[2025-01-20] MEDS: oxyCODONE 5 MG TAB PO (10:19)
== END 2025-01-20 10:47 | disposition home or self-care (01) ==
LOC: SUR 06:12
PROVIDERS: PCP Family Medicine; Visit Provider Obstetrics & Gynecology
PROC: (CPT 58661; principal; 2025-01-20 07:30)
DX: Z30.2 Encounter for sterilization (principal); F64.0 Transsexualism; G90.A Postural orthostatic tachycardia syndrome [POTS]; F41.9 Anxiety disorder, unspecified; G43.009 Migraine without aura, not intractable, without status migrainosus; F17.210 Nicotine dependence, cigarettes, uncomplicated; F33.2 Major depressive disorder, recurrent severe without psychotic features
CPT/HCPCS: 58661; 81025; 88302; J0665; J1100; J1885; J2003; J2250; J2371; J2405; J2704; J3010

== ENCOUNTER 2025-02-27 23:52 | Emergency (ER) | payer MEDICARE, MEDICAID, SELFPAY ==
[2025-02-27 23:55] VITALS: BP 135/72; PULSE 61; RESP 16; TEMP 36.6; O2SAT 99
--- NOTE | 2025-02-28 00:14 | W.ED.GENAD ---
Discharge Plan Disposition Patient Disposition: Home Condition: Good Discharge Details Clinical Impression: Headache, migraine Primary Care Provider: Eric Singer ED Provider: Sea Gamino Meds and New Rx's Prescriptions: Continued fluocinonide 0.05 % cream 1 applic topical BID Qty: 30 1RF lamotrigine 100 mg tablet 100 mg PO BID epinephrine [EpiPen] 0.3 mg/0.3 mL auto-injector 0.3 mg IM Q4H PRN (Reason: anaphylaxis) Qty: 2 0RF (DME) nebulizer accessories Kit See Rx Instructions .ROUTE .MEDSUPPLY Qty: 1 0RF Rx Instructions: Please dispense tubing for nebulizer, and use as directed gabapentin 300 mg capsule 600 mg PO QHS Qty: 180 3RF prochlorperazine maleate 10 mg tablet 10 mg PO Q8H PRN (Reason: nausea and vomiting) Qty: 30 1RF Ajovy Syringe 225 mg/1.5 mL syringe 225 mg subcut QMONTH Qty: 1.5 11RF topiramate 100 mg tablet 100 mg PO QHS Qty: 90 3RF (DME) nebulizers Misc See Rx Instructions .Route Qty: 1 0RF Rx Instructions: As directed, prn for asthma attacks albuterol sulfate [ProAir HFA] 90 mcg/actuation HFA aerosol inhaler 2 puff Inhalation Q4H PRN Qty: 1 5RF tacrolimus 0.1 % ointment 1 applic topical BID Rx Instructions: Apply twice daily in the off wk from steroid ointment (clobetasol) clobetasol 0.05 % ointment 1 applic topical BID Rx Instructions: Apply twice daily for 14 days and then take 1 wk off Repeat as needed rizatriptan [Maxalt-OFFICE MACHINE EMBOSSOGRAPH OPERATOR] 10 mg tablet,disintegrating See Rx Instructions PO .COMPLEX 90 Days Qty: 36 3RF Rx Instructions: take 1 tab at onset of headache; if no relief may repeat 1 tab after at least 2 hrs; max = 3 tabs/24 hr PO ipratropium-albuterol 0.5 mg-3 mg(2.5 mg base)/3 mL solution for nebulization 3 ml inhalation Q4H PRN (Reason: wheezing) Qty: 180 0RF Rx Instructions: Asthma exacerbation--start by taking 3x/d & q4h PRN SOB, wheeze, cough. metoprolol tartrate 25 mg tablet 25 mg PO BID Qty: 180 3RF montelukast 10 mg tablet 10 mg PO DAILY PRN (Reason: seasonal allergies) Qty: 90 3RF Discharge Instructions Additional Instructions: You were seen for a migraine headache that did not respond to your home medications. You received fluids and medications here with resolution of your headache. May follow-up with primary care as needed. Return to ED for severe worsening headache, neurologic change, other concerns. HPI General Mode of arrival: EMS. Date/Time Provider Initiated Documentation: 02/28/25 00:14. Limitations to Documentation: no limitations. Information obtained by: patient and RN notes reviewed. HPI Narrative: Patient presents to ED with chief complaint of migraine headache. Patient reports taking typical migraine medication a couple of hours prior with no relief of headache. Headache is similar to previous migraines just a little more intense. Potentially related to sunburn and not drinking enough today. Denies any vomiting but does have some nausea. Denies any neurologic changes. Related Data Home Medications ?Medication ?Instructions ?Recorded ?Confirmed nebulizer accessories #1 ea 08/17/19 02/02/25 nebulizers #1 ea 06/07/22 02/02/25 albuterol sulfate 90 mcg/actuation 2 puff inhalation Q4H PRN ##1 11/07/23 02/28/25 aerosol inhaler (ProAir HFA) fluocinonide 0.05 % topical cream 1 applic topical BID #30 grams 02/07/24 02/28/25 lamotrigine 100 mg tablet 100 mg PO BID 05/18/24 02/28/25 gabapentin 300 mg capsule 600 mg (2 x 300 mg) PO QHS #180 06/23/24 02/28/25 caps prochlorperazine maleate 10 mg 10 mg PO Q8H PRN nausea and 06/23/24 02/28/25 tablet vomiting #30 tabs epinephrine 0.3 mg/0.3 mL 0.3 mg (0.3 mL) IM Q4H PRN 07/03/24 02/28/25 injection, auto-injector (EpiPen) anaphylaxis #2 ea clobetasol 0.05 % topical ointment 1 applic topical BID Eczema 07/23/24 02/28/25 tacrolimus 0.1 % topical ointment 1 applic topical BID Eczema 07/23/24 02/28/25 rizatriptan 10 mg disintegrating See Rx Instructions PO .COMPLEX 90 07/27/24 02/28/25 tablet (Maxalt-OFFICE MACHINE EMBOSSOGRAPH OPERATOR) days #36 tabs ipratropium 0.5 mg-albuterol 3 mg 3 ml inhalation Q4H PRN wheezing 09/14/24 02/28/25 (2.5 mg base)/3 mL nebulization #180 mL soln fremanezumab-vfrm 225 mg/1.5 mL 225 mg (1.5 mL) subcut QMONTH #1.5 10/05/24 02/28/25 subcutaneous syringe (Ajovy mL Syringe) topiramate 100 mg tablet 100 mg PO QHS #90 tabs 10/05/24 02/28/25 metoprolol tartrate 25 mg tablet 25 mg PO BID #180 tabs 12/28/24 02/28/25 montelukast 10 mg tablet 10 mg PO DAILY PRN seasonal 02/25/25 02/28/25 allergies #90 tabs Previous Rx's ?Medication ?Instructions ?Recorded nebulizer accessories #1 ea 08/17/19 nebulizers #1 ea 06/07/22 albuterol sulfate 90 mcg/actuation 2 puff inhalation Q4H PRN ##1 11/07/23 aerosol inhaler (ProAir HFA) fluocinonide 0.05 % topical cream 1 applic topical BID #30 grams 02/07/24 gabapentin 300 mg capsule 600 mg (2 x 300 mg) PO QHS #180 06/23/24 caps prochlorperazine maleate 10 mg 10 mg PO Q8H PRN nausea and 06/23/24 tablet vomiting #30 tabs epinephrine 0.3 mg/0.3 mL 0.3 mg (0.3 mL) IM Q4H PRN 07/03/24 injection, auto-injector (EpiPen) anaphylaxis #2 ea rizatriptan 10 mg disintegrating See Rx Instructions PO .COMPLEX 90 07/27/24 tablet (Maxalt-OFFICE MACHINE EMBOSSOGRAPH OPERATOR) days #36 tabs ipratropium 0.5 mg-albuterol 3 mg 3 ml inhalation Q4H PRN wheezing 09/14/24 (2.5 mg base)/3 mL nebulization #180 mL soln fremanezumab-vfrm 225 mg/1.5 mL 225 mg (1.5 mL) subcut QMONTH #1.5 10/05/24 subcutaneous syringe (Ajovy mL Syringe) topiramate 100 mg tablet 100 mg PO QHS #90 tabs 10/05/24 metoprolol tartrate 25 mg tablet 25 mg PO BID #180 tabs 12/28/24 montelukast 10 mg tablet 10 mg PO DAILY PRN seasonal 02/25/25 allergies #90 tabs Allergies Allergy/AdvReac Type Severity Reaction Status Date / Time coconut Allergy Severe Anaphylaxis Verified 02/28/25 00:12 peanut Allergy Intermediate Swelling/Ed Verified 02/28/25 00:12 josy sertraline (From Zoloft) Allergy Unknown Other (See Verified 02/28/25 00:12 Comment) citalopram AdvReac Intermediate insomnia Verified 02/28/25 00:12 ultrasound gel Allergy Intermediate Itching Uncoded 02/28/25 00:12 General Stated Complaint: Headache CONOR: 3 Exam Narrative Exam Narrative: Const: NAD. VS per triage. HEENT: NC/AT. Normal facial exam. Neck: Supple. Trachea midline. Lungs: Normal respiratory effort. Neuro: A+O x 3. Normal speech, mentation, gait. Cranial nerves II - XII grossly intact. No gross motor or sensory deficit. Course Vital Signs Vital signs: Vital Signs Temperature 97.8 F 02/27/25 23:55 Pulse 61 02/27/25 23:55 Respiratory Rate 16 02/27/25 23:55 Blood Pressure 135/72 02/27/25 23:55 Pulse Oximetry 99 02/27/25 23:55 Temperature 97.8 F 02/27/25 23:55 Temperature Source Oral 02/27/25 23:55 Pulse 61 02/27/25 23:55 Respiratory Rate 16 02/27/25 23:55 Blood Pressure 135/72 02/27/25 23:55 Pulse Oximetry 99 02/27/25 23:55 Pain Level 8 02/28/25 00:10 Medical Decision Making Patient presenting to the ED with migraine headache which did not respond to regular medications taking for migraines. Had been out in the sun all day, has sunburn on the extremities, probably did not drink enough fluids and thinks this may have something to do with the headache not resolving. Neurologically intact. Some nausea but no vomiting. Will place IV to give fluids, prochlorperazine, ketorolac. Patient reports resolution of headache and feels much better. Remains neurologically intact. Plan discharge home to follow-up with primary care and/or neurology as needed. Return precautions provided. [facility] All Active Problems Headache, migraine (Chronic) Right ankle instability (Acute) Tinnitus (Acute) Eczema, dyshidrotic (Acute) 07/21/2024- Seen by Derm @ [facility] [place] ([facility]) Start Rx clobetasol .05% ointment and tacrolimus 0.1% ointment. Sensitive skin care recommendations. Joint hyperextensibility of multiple sites (Acute) Chronic headache (Acute) De Quervain's tenosynovitis, right (Acute) Abnormal carotid ultrasound (Acute) Discordance 2' velocities.. MRA/CTA? POTS (postural orthostatic tachycardia syndrome) (Acute) Tobacco dependence (Acute) Gender dysphoria (Acute) Trigger finger, right (Acute) Knee pain, bilateral (Acute) Anxiety (Chronic) Nonspecific paroxysmal spell (Acute) Migraine headache without aura (Acute) Contact dermatitis due to adhesive bandage (Acute) Asthma (Chronic) Bronchitis (Acute) Severe major depression with psychotic features (Acute) Pain, dental (Acute) Syncopal episodes (Chronic) a. With heart murmur for which she had a normal cardiac evaluation. 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 F/u echo in 5 years Depression (Chronic 01/24/15) 04/25 - 05/02/18 Inpatient [facility] (depression with suicidal ideation) Adjustment disorder with mixed anxiety and depressed mood (Chronic) per [facility] Mikayla cedillo Major depressive disorder, recurrent episode, severe (Chronic) per [facility] Mikayla cedillo Medical History 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; anesthesia given to lower tooth [id number] transgender person Preferred name: Gonzalo He/Him pronouns Alopecia (capitis) totalis Allergic rhinitis Atopic dermatitis Urinary tract infection requiring hospitalization Surgical History History of laparoscopy 01/20/25: lap salpingectomy for sterilization Dr. Gillis Status post dilation and curettage Family History Mother Obstructive sleep apnea syndrome uses cpap hs Father Esophageal stricture Diabetes Sister Mental disorder Depression Brother Asthma Social History Smoking/Tobacco Use Status: Current-Occasional Tobacco Type: cigarettes and e-cigarettes Tobacco: How many years used: 1 Quit status: quit date established Smoking risk assessment performed?: Yes Alcohol Intake: current Alcohol Intake frequency: holidays/special occasions only Drug use: Rarely Substance use type: marijuana Details: Last smoked marijuana 01/16/25 Housing: other What type of physical activity do you participate in: walking Frequency: daily Seatbelt use: always Do you feel safe at home: Yes Do you feel safe in your relationship?: Yes Female Reproductive History Menstrual control method: progestin IUCD History History 2 Para 1 Hx # Term Pregnancies 1 Multiple births Hx # Pregnancies Ectopic pregnancies AB induced Hx Number of Living Children 1 AB spontaneous 1 Past Pregnancies Del. Date GA/Weeks # Preg Succ Route Wgt Sex Labor Lgth Anesthesia Location Prov Complic 03/03/16 39 No vaginal 2920.001 g Female Marjan 04/20/21 6 No [facility] Delivery Date: 04/20/21 Last Updated by: Shama Gillis MD [facility] - D&C
[2025-02-28] MEDS: Prochlorperazine 10 MG/2 ML VIAL IVP (01:27)
[2025-02-28] MEDS: Ketorolac 15 MG/ML VIAL IVP (01:27)
[2025-02-28] MEDS: Normal Saline 1,000 ML 1000 ML IV (01:28)
[2025-02-28 02:11] VITALS: BP 110/65; PULSE 59; RESP 16; O2SAT 96
== END 2025-02-28 02:36 | disposition home or self-care (01) ==
PROVIDERS: Emergency Provider Emergency Medicine; PCP Family Medicine
DX: G43.909 Migraine, unspecified, not intractable, without status migrainosus (principal); F17.210 Nicotine dependence, cigarettes, uncomplicated; F17.290 Nicotine dependence, other tobacco product, uncomplicated
CPT/HCPCS: 96374; 96375; 99284; 99283; J0780; J1885

== ENCOUNTER 2025-05-04 13:00 | Outpatient (CLI) | payer MEDICARE, MEDICAID, SELFPAY ==
[2025-05-04 12:49] LABS: TSH (W/Ref FT4) 0.62 uIU/mL (0.36-3.74)
[2025-05-04 12:50] LABS: C-Reactive Protein < 0.50 mg/dL (<or=0.5)
[2025-05-05 10:32] LABS: Lyme Ab w Rflx to Lyme Confirm Negative (Negative)
[2025-05-06 21:29] LABS: B. miyamotoi PCR Negative (Negative); Babesia divergens/MO-1 Negative (Negative); Ehrlichia muris eauclairensis Negative (Negative)
== END 2025-05-04 13:01 | disposition home or self-care (01) ==
LOC: LBO 13:01
PROVIDERS: PCP Family Medicine; Visit Provider Family Medicine
DX: G89.29 Other chronic pain (principal); R53.83 Other fatigue
CPT/HCPCS: 36415; 87798; 84443; 86140; 86618

== ENCOUNTER → 2025-05-05 09:47 | Outpatient (BNVA) | payer MEDICARE, MEDICAID, SELFPAY | PROVIDERS: PCP Family Medicine; Visit Provider Psychiatry & Neurology Neurology | DX: G43.109 Migraine with aura, not intractable, without status migrainosus (principal); G43.009 Migraine without aura, not intractable, without status migrainosus; G89.29 Other chronic pain; J45.909 Unspecified asthma, uncomplicated | CPT/HCPCS: 99214 ==

== ENCOUNTER → 2025-07-20 10:45 | Outpatient (BNVA) | payer MEDICARE, MEDICAID, SELFPAY | PROVIDERS: PCP Family Medicine; Visit Provider Psychiatry & Neurology Neurology | DX: G43.109 Migraine with aura, not intractable, without status migrainosus (principal); G43.009 Migraine without aura, not intractable, without status migrainosus | CPT/HCPCS: 99213 ==